=== PATIENT | male | born 1955 | race Caucasian/White ===

== ENCOUNTER 2017-04-10 16:00 | Emergency (ER) | payer MEDICARE, SELFPAY ==
[2017-04-10] VITALS (7 sets, daily range): BP systolic 127–137; BP diastolic 65–66; PULSE 81–96; RESP 16–25; TEMP 37.3; O2SAT 92–97; BMI 42.9
--- NOTE | 2017-04-10 16:39 | EKG12_ITS ---
Test Reason : SOB Blood Pressure : / mmHG Vent. Rate : 087 BPM Atrial Rate : 087 BPM P-R Int : 170 ms QRS Dur : 078 ms QT Int : 360 ms P-R-T Axes : 043 030 118 degrees QTc Int : 433 ms Normal sinus rhythm T wave abnormality, consider lateral ischemia Abnormal ECG Confirmed by BALTAZAR CHENG, ALEXANDER ([id number]), manager editorial LAM HARDY ([id number]) on 04/13/2017 2:53:11 PM Referred By: MEME Confirmed By:ALEXANDER LEDESMA MD
[2017-04-10] MEDS: Albuterol 2.5 MG/3 ML VIAL.NEB. INHALATION ×2 (16:57)
[2017-04-10] MEDS: Ipratropium/Albuterol Sulfate 3 ML AMPUL.NEB INHALATION (16:57)
[2017-04-10] MEDS: MethylPREDNISolone 125 MG/2 ML Vial IV (17:11)
--- NOTE | 2017-04-10 17:15 | RAD_ITS ---
XR Chest 2 Views INDICATION: sob with cough COMPARISON: May 29, 2016 TECHNIQUE: 2 views of the chest FINDINGS: Tracheostomy tube is seen in place. Heart size remains mildly enlarged. Interstitial markings at the lung bases are increased, lungs appear otherwise clear. RAD/Chest PA and Lateral IMPRESSION: Stable examination with mildly increased interstitial markings at the lung bases. No new infiltrate. at 1743 Reported and signed by: Susan Madison MD Electronically Signed: Susan Madison MD at 16:42 EST Tel , Service support ,
[2017-04-10 17:35] LABS: Absolute Lymphocyte Count 1.04 X10^3/ul (0.83-4.51); Absolute Neutrophil Count 14.5 X10^3/uL (2.0-7.7); Basophil# 0.03 X10^3/uL; Basophil% 0.2 % (0-1); Eosinophil# 0.03 X10^3/uL; Eosinophils% 0.2 % (0-5); Hematocrit 35.4 % (40-54); Hemoglobin 11.7 g/dl (13.0-16.5); Lymphocyte # 1.04 X10^3/ul (4.0); Lymphocyte % 6.2 % (19-41); Mean Corp Hgb Conc 33.1 g/gl (32-36); Mean Corpuscular Hgb 28.4 pg (27.0-32.0); Mean Corpuscular Volume 85.9 fL (80-94); Mean Platelet Vol. 10.4 fl (6.2-12.0); Monocyte% 6.6 % (0-10); Neutrophil # 14.54 X10^3/uL (2.7-7.7); Neutrophil % 86.6 % (47-70); Platelet Count 293 K/mm3 (150-450); RBC Distribution Width CV 12.7 % (11.6-14.6); RBC Distribution Width SD 40.3 fl (35.1-43.9); Red Blood Count 4.12 M/mm3 (4.6-6.2); White Blood Count 16.8 K/mm3 (4.4-11.0)
[2017-04-10 17:39] LABS: POSITIVE COUNT NO; POSITIVE DIFFERENTIAL NO; POSITIVE MORPHOLOGY NO
[2017-04-10 17:45] LABS: Anion Gap 7 (5-15); BUN 25 mg/dL (7-18); BUN/Creat Ratio 17.4 RATIO (10-20); Calcium,Total 8.2 mg/dL (8.5-10.1); Chloride 100 mmol/L (98-107); Creatinine, Serum 1.44 mg/dL (0.70-1.30); EST Glomerular Filtration Rate 53 mL/min (>60); Est Glom Filt Rate - Afr Amer 64 mL/min (>60); Estimated Creatinine Clearance 56.65 ml/min; Glucose 261 mg/dL (74-106); Potassium 4.6 mmol/L (3.5-5.1); Sodium Level 133 mmol/L (136-145)
--- NOTE | 2017-04-10 18:41 | ED.DCSUM_ITS ---
- ER Visit Summary Date of Service: 04/10/17 Chief Complaint: Dyspnea History of Present Illness: The patient is a 62 M who notes 3 days of shortness of breath. He was seen in urgent care and sent to the emergency department. 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 He sees Dr. Yeager for pulmonology at [facility]. Patient notes 3 days of progressive shortness of breath as well as cough and sputum production. No reported fevers. He has oxygen at home and wears it at night and as needed. The patient trach is completely occluded with sputum. It is the original trach from 2007 that he alternates with another one. Physical Examination: Afebrile vital signs are stable Gen: Well-nourished well-developed Head: Normocephalic atraumatic Eyes: Perrl EOMI ENT: TMs clear no rhinorrhea moist mucous membranes Neck: Supple no lymphadenopathy no JVD nontender CVS: Regular rate rhythm no murmurs normal S1-S2 Respiratory: No distress expiratory wheezing and rhonchi chest nontender trach site appears without infection or complication Abdomen: Soft nontender nondistended normal bowel sounds no masses Back: Nontender Extremity: Nontender no edema Skin: Normal color no rash Neuro: alert orientated ?3 CN II-XII intact normal strength sensation reflexes gait cerebellar Psych: Normal affect normal mood Test Results: White count 16.8. Troponin negative EKG sinus at a rate of 87. Chest x-ray showed no new infiltrate but chronic changes. Emergency Department Course and Treatment: Patient's trach is occluded with dried phlegm. This was cleaned by respiratory and inserted. Patient's trach is special order. He has another one at home. He was advised to follow-up with mine motor engineer have a new one ordered. He received breathing treatments and Solu-Medrol. Repeat lung exam shows his lungs to be clear. He ambulated asymptomatically though his oxygen level was around 89%. Patient states he feels well enough to go home. he will be placed on prednisone and azithromycin. Return if worsening. Impression: 1. COPD exacerbation 2. Tracheostomy complication This note was generated with [employer] dictation software. It may contain incorrect words, spelling, and punctuation that were not noted in review of the chart prior to signing ED Disposition - Plan for ED Patient: Disposition: Home or Assisted Living Chief Complaint: Shortness of Breath Instructions: ED COPD Flare Prescriptions: Azithromycin [Zithromax] 250 mg PO DAILY #6 tab Prednisone [Deltasone] 60 mg PO DAILY #15 tab Referrals: Chinmay Sin MD [Primary Care Provider] - Additional Instructions: You need to have your mine motor engineer order and you a new trach. Please follow-up with your mine motor engineer in 3-5 days or return here if worsening.
[2017-04-10 19:21] LABS: BNP,B-Type NATRIURETIC PEPTIDE 42.7 pg/mL (0-100)
== END 2017-04-10 18:53 | disposition home or self-care (01) ==
PROVIDERS: Emergency Provider Emergency Medicine; Family Provider Family Medicine; PCP Family Medicine
DX: J44.1 Chronic obstructive pulmonary disease with (acute) exacerbation (principal); J95.03 Malfunction of tracheostomy stoma; Y84.9 Medical procedure, unspecified as the cause of abnormal reaction of the patient, or of later complication, without mention of misadventure at the time of the procedure; E11.9 Type 2 diabetes mellitus without complications; I10 Essential (primary) hypertension; E78.00 Pure hypercholesterolemia, unspecified; I25.10 Atherosclerotic heart disease of native coronary artery without angina pectoris; I50.9 Heart failure, unspecified; C80.1 Malignant (primary) neoplasm, unspecified
CPT/HCPCS: 71046; 80048; 83880; 84484; 85025; 93005; 94640; 96374; 99284; A4216

== ENCOUNTER 2017-04-12 14:09 | Inpatient (IN) | payer MEDICARE, SELFPAY ==
[2017-04-12] VITALS (13 sets, daily range): BP systolic 122–157; BP diastolic 60–88; PULSE 67–93; RESP 18–31; TEMP 36.9–37.1; O2SAT 96–100; BMI 43.4; BMI 42.8
--- NOTE | 2017-04-12 14:43 | EKG12_ITS ---
Test Reason : SOB Blood Pressure : / mmHG Vent. Rate : 067 BPM Atrial Rate : 067 BPM P-R Int : 152 ms QRS Dur : 084 ms QT Int : 366 ms P-R-T Axes : 035 061 147 degrees QTc Int : 386 ms Normal sinus rhythm Nonspecific T wave abnormality Abnormal ECG Confirmed by FILIPE MARTÍNEZ ([id number]), editorial clerk LAM HARDY ([id number]) on 04/16/2017 1:45:59 PM Referred By: LAURA Confirmed By:FILIPE MARTÍNEZ
--- NOTE | 2017-04-12 14:46 | ED.VISSUMM ---
- ER Visit Summary Date of Service: 04/12/17 Chief Complaint: Shortness of breath History of Present Illness: The patient is a 62 M with tracheostomy. And COPD he is on 6 L of oxygen at home as needed. He also has a history of insulin-dependent diabetes and CHF. Patient was seen ER several days ago. He was discharged home on prednisone and Zithromax. He followed up with his fence post cutter today at the [facility] and had a low pulse ox there and was sent to the ER. He denies any chest pain. He denies any hemoptysis. He denies any fever. Physical Examination: Vital signs are stable except his pulse ox on a Venturi mask is 98% on room air he was 85%. But is normally on oxygen. HEENT exam unremarkable neck nontender is a nasal trumpet type of tracheostomy device that does have a lot of phlegm in it. This will be suctioned by the respiratory therapist. Neck nontender no lymphadenopathy. Lungs coarse breath sounds bilaterally. Few scattered wheezes. Heart regular rate and rhythm. Abdomen soft nontender nondistended no giving or masses normal bowel sounds no peritoneal signs. Moving all 4 extremities. Calves nontender. No cords. Neurologically is awake and alert without focal deficits. Test Results: Chest x-ray shows chronic changes consistent with COPD but no acute process. Read both by myself the radiologist. BC white count is elevated 22,000 it was 16,000 on last visit and he is currently on steroids. BMP unremarkable except a BUN of 43 a creatinine 1.2 consistent with dehydration. Anion gap is 5. There is a arterial blood gas pending requested by the hospitalist to evaluate. Emergency Department Course and Treatment: COPD flare with mucous plugging of the tracheostomy. Trach will be suctioned. Aerosol treatments. Treatment Plan: Exam on the patient is normal 6 L his sat is only 90-91%. He has labored breathing while just sitting in bed. He is going need further treatment and aerosols. He may need even bronchoscopy. He and I had a long discussion along with his significant other and he is willing to be admitted. Disposition: Vision Impression: Acute exacerbation of COPD Hypoxia Tracheostomy with mucous plugging This note was generated with [employer] dictation software. It may contain incorrect words, spelling, and punctuation that were not noted in review of the chart prior to signing ED Disposition - Plan for ED Patient: Chief Complaint: Shortness of Breath Referrals: Chinmay Sin MD [Primary Care Provider] -
--- NOTE | 2017-04-12 14:50 | ED.DCSUM_ITS ---
- ER Visit Summary Date of Service: 04/12/17 Chief Complaint: Shortness of breath History of Present Illness: The patient is a 62 M with tracheostomy. And COPD he is on 6 L of oxygen at home as needed. He also has a history of insulin- dependent diabetes and CHF. Patient was seen ER several days ago. He was discharged home on prednisone and Zithromax. He followed up with his stone derrickman and rigger today at the [facility] and had a low pulse ox there and was sent to the ER. He denies any chest pain. He denies any hemoptysis. He denies any fever. Physical Examination: Vital signs are stable except his pulse ox on a Venturi mask is 98% on room air he was 85%. But is normally on oxygen. HEENT exam unremarkable neck nontender is a nasal trumpet type of tracheostomy device that does have a lot of phlegm in it. This will be suctioned by the respiratory therapist. Neck nontender no lymphadenopathy. Lungs coarse breath sounds bilaterally. Few scattered wheezes. Heart regular rate and rhythm. Abdomen soft nontender nondistended no giving or masses normal bowel sounds no peritoneal signs. Moving all 4 extremities. Calves nontender. No cords. Neurologically is awake and alert without focal deficits. Test Results: Chest x-ray shows chronic changes consistent with COPD but no acute process. Read both by myself the radiologist. BC white count is elevated 22,000 it was 16,000 on last visit and he is currently on steroids. BMP unremarkable except a BUN of 43 a creatinine 1.2 consistent with dehydration. Anion gap is 5. There is a arterial blood gas pending requested by the hospitalist to evaluate. Emergency Department Course and Treatment: COPD flare with mucous plugging of the tracheostomy. Trach will be suctioned. Aerosol treatments. Treatment Plan: Exam on the patient is normal 6 L his sat is only 90-91%. He has labored breathing while just sitting in bed. He is going need further treatment and aerosols. He may need even bronchoscopy. He and I had a long discussion along with his significant other and he is willing to be admitted. Disposition: Vision Impression: Acute exacerbation of COPD Hypoxia Tracheostomy with mucous plugging This note was generated with [employer] dictation software. It may contain incorrect words, spelling, and punctuation that were not noted in review of the chart prior to signing ED Disposition - Plan for ED Patient: Chief Complaint: Shortness of Breath Referrals: Chinmay Sin MD [Primary Care Provider] -
[2017-04-12 14:51] LABS: Absolute Lymphocyte Count 1.11 X10^3/ul (0.83-4.51); Absolute Neutrophil Count 19.8 X10^3/uL (2.0-7.7); Basophil# 0.01 X10^3/uL; Eosinophil# 0.01 X10^3/uL; Hematocrit 36.7 % (40-54); Lymphocyte # 1.11 X10^3/ul (4.0); Lymphocyte % 5.1 % (19-41); Mean Corp Hgb Conc 32.7 g/gl (32-36); Mean Corpuscular Hgb 28.4 pg (27.0-32.0); Mean Platelet Vol. 10.4 fl (6.2-12.0); Monocyte# 0.94 X10^3/uL; Monocyte% 4.3 % (0-10); Neutrophil # 19.83 X10^3/uL (2.7-7.7); Neutrophil % 90.3 % (47-70); Platelet Count 319 K/mm3 (150-450); RBC Distribution Width CV 12.8 % (11.6-14.6); RBC Distribution Width SD 40.9 fl (35.1-43.9); Red Blood Count 4.22 M/mm3 (4.6-6.2)
[2017-04-12 14:56] LABS: POSITIVE COUNT NO; POSITIVE DIFFERENTIAL NO; POSITIVE MORPHOLOGY NO
[2017-04-12 14:57] LABS: Anion Gap 5 (5-15); BUN 43 mg/dL (7-18); BUN/Creat Ratio 35.8 RATIO (10-20); Calcium,Total 8.9 mg/dL (8.5-10.1); Chloride 101 mmol/L (98-107); EST Glomerular Filtration Rate 65 mL/min (>60); Est Glom Filt Rate - Afr Amer 79 mL/min (>60); Estimated Creatinine Clearance 67.98 ml/min; Glucose 201 mg/dL (74-106); Potassium 4.3 mmol/L (3.5-5.1); Sodium Level 136 mmol/L (136-145)
[2017-04-12] MEDS: Albuterol 2.5 MG/3 ML VIAL.NEB. INHALATION ×2 (15:07)
[2017-04-12] MEDS: Ipratropium/Albuterol Sulfate 3 ML AMPUL.NEB INHALATION ×2 (15:07→20:00)
--- NOTE | 2017-04-12 15:20 | RAD_ITS ---
STUDY: X-RAY CHEST REASON FOR EXAM: Male, 62 years old. Chest pain TECHNIQUE: Frontal and lateral views of the chest COMPARISON: 04/10/2017 FINDINGS: Again noted is linear atelectasis at the lung bases. The lungs are otherwise clear. There are no pleural effusions. There is no pneumothorax. The heart is mildly enlarged, but stable in size. The visualized osseous structures are within normal limits. RAD/Chest PA and Lateral IMPRESSION: No acute thoracic pathology. Electronically Signed: Nicolás Levine, at 16:16 EST Tel , Service support ,
[2017-04-12 17:16] LABS: Allen Test POS; Base Excess 4 mmol/L (-2 to +2); Bicarbonate 29.2 mmol/L (22-26); Blood Gas Specimen Type ART; O2 Delivery Device Nasal Can; PO2 77 mmHG (75-100); SITE L Radial; SO2 94 % (95-99); Time Given 1700; Total Carbon Dioxide 31 mmol/L; pCO2 50.6 mmHg (35-45); pH 7.37 (7.35-7.45)
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
[2017-04-12] MEDS: Furosemide 40 MG Tablet PO (19:16)
[2017-04-12] MEDS: levoFLOXacin 500 MG Tablet PO (19:16)
[2017-04-12] MEDS: Lisinopril 40 MG Tablet PO (21:42)
[2017-04-12] MEDS: 0.9% NaCl Peripheral Flush Adult/Peds IV (21:43)
[2017-04-12] MEDS: Atorvastatin Calcium 40 MG Tablet PO (21:43)
[2017-04-12] MEDS: Heparin Injection 5,000 UNITS/ML Syringe 5000 UNITS SC (21:43)
[2017-04-12] MEDS: Spironolactone 25 MG Tablet PO (21:43)
[2017-04-12 21:56] LABS: Bedside Glucose 367 mg/dL (70-110)
[2017-04-13] VITALS (16 sets, daily range): BP systolic 115–135; BP diastolic 56–72; PULSE 53–81; RESP 18–24; TEMP 36.7–37.2; O2SAT 96–100
[2017-04-13] MEDS: Ipratropium/Albuterol Sulfate 3 ML AMPUL.NEB INHALATION ×4 (01:20→22:42)
[2017-04-13] MEDS: 0.9% NaCl Peripheral Flush Adult/Peds IV (06:02)
[2017-04-13] MEDS: Heparin Injection 5,000 UNITS/ML Syringe 5000 UNITS SC ×3 (06:02→21:05)
[2017-04-13] MEDS: Levothyroxine 150 MCG Tablet PO (06:02)
[2017-04-13] MEDS: levoFLOXacin 500 MG Tablet PO (06:02)
[2017-04-13 06:17] LABS: Bedside Glucose 351 mg/dL (70-110)
[2017-04-13] MEDS: Aspirin 81 MG TAB.CHEW PO (08:58)
[2017-04-13] MEDS: LINAGLIPTIN 5 MG TABLET PO (08:59)
[2017-04-13] MEDS: Spironolactone 25 MG Tablet PO ×2 (08:59→21:06)
[2017-04-13] MEDS: Metolazone 2.5 MG Tablet PO (08:59)
[2017-04-13] MEDS: Lisinopril 40 MG Tablet PO ×2 (08:59→21:05)
[2017-04-13] MEDS: metFORMIN HCl 1,000 MG Tablet 1000 MG PO ×2 (08:59→16:57)
[2017-04-13] MEDS: Furosemide 40 MG Tablet PO ×2 (08:59→16:58)
--- NOTE | 2017-04-13 09:06 | PCM.PN.HOSP ---
Patient Problems: Active and Suspected Problems Shortness of breath (Acute) Subjective: Breathing better at this time. No current complaints. Vitals/I&O's: Vital Signs Temp Pulse Resp BP Pulse Ox 36.7 C 57 L 20 H 115/63 96 04/13/17 07:00 04/13/17 07:08 04/13/17 07:08 04/13/17 07:00 04/13/17 07:08 Oxygen Flow Rate (L/min) 11 Oxygen Delivery Method Trach Collar Weight: 139.3 kg Body Mass Index (BMI) 42.8 General: Alert, Cooperative, No apparent distress, - - Up in the chair eating breakfast. No respiratory distress. No conversational dyspnea. HEENT: Atraumatic, Normocephalic Neck: No Nodes, Thyroid Normal Size and Texture, - - Trach in place Lungs: Normal air movement, Wheezes Cardiovascular: Regular rate, Regular Rhythm, Normal S1, Normal S2, No murmurs Abdomen: Bowel Sounds Present, Soft, Non Tender, Non-Distended, Obese Psych/Mental Status: Normal Affect, Appropriate Laboratory Results 04/12/17 21:27: POC Glucose 367 H 04/13/17 06:04: POC Glucose 351 H Current Medications Acetaminophen (Tylenol) 650 mg PO Q6H PRN PRN PRN Reason: Mild Pain (1-3)/Temp > 100.7 F Albuterol Sulfate (Ventolin Aerosols) 2.5 mg INHALATION Q2H PRN PRN PRN Reason: DYSPNEA Albuterol/Ipratropium (Duoneb) 3 ml INHALATION Q6H PRN PRN Reason: SOB &/OR WHEEZING Last Admin: 04/13/17 07:07 Dose: 3 ml Aspirin (Aspirin, Baby) 81 mg PO DAILY@0800 [facility] Last Admin: 04/13/17 08:58 Dose: 81 mg Atorvastatin Calcium (Lipitor) 40 mg PO QHS [facility] Last Admin: 04/12/17 21:43 Dose: 40 mg Dextrose (D50w Syringe) 0 gm IV X1 PRN; Protocol PRN Reason: Hypoglycemia Furosemide (Lasix) 40 mg PO BIDLX [facility] Last Admin: 04/13/17 08:59 Dose: 40 mg Glipizide (Glucotrol) 10 mg PO BIDAC [facility] Last Admin: 04/13/17 08:58 Dose: 10 mg Glucagon () 1 mg IM .X1 PRN PRN Reason: Hypoglycemia Heparin Sodium (Porcine) () 5,000 units SC Q8 [facility] Last Admin: 04/13/17 06:02 Dose: 5,000 units Influenza Virus Vaccine Quadrival (Fluarix/Fluzone) 0.5 ml IM .ONCE ONE Stop: 04/13/17 10:01 Last Admin: 04/13/17 08:59 Dose: 0.5 ml Insulin Aspart (Novolog Flexpen ([facility])) 0 units SC ACHS [facility] PRN Reason: Protocol Last Admin: 04/13/17 06:05 Dose: 12 u Insulin Detemir (Levemir (Bk)) 35 units SC BID [facility] Last Admin: 04/13/17 09:00 Dose: 35 u Levofloxacin (Levaquin) 500 mg PO DAILY@0600 [facility] Last Admin: 04/13/17 06:02 Dose: 500 mg Levothyroxine Sodium (Synthroid) 150 mcg PO DAILY@0600 [facility] Last Admin: 04/13/17 06:02 Dose: 150 mcg Linagliptin (Tradjenta) 5 mg PO DAILY [facility] Last Admin: 04/13/17 08:59 Dose: 5 mg Lisinopril (Zestril) 40 mg PO BID [facility] Last Admin: 04/13/17 08:59 Dose: 40 mg [facility] Last Admin: 04/13/17 08:59 Dose: 1,000 mg Methylprednisolone (Solu-Medrol) 40 mg IV Q8 [facility] Last Admin: 04/13/17 06:02 Dose: 40 mg Metolazone (Zaroxolyn) 2.5 mg PO DAILY [facility] Last Admin: 04/13/17 08:59 Dose: 2.5 mg Sodium Chloride () 5 - 30 ml IV UD PRN PRN Reason: SALINE FLUSH Last Admin: 04/13/17 06:02 Dose: 10 ml Spironolactone (Aldactone) 25 mg PO BID [facility] Last Admin: 04/13/17 08:59 Dose: 25 mg Assessment/Plan Active and Suspected Problems Shortness of breath (Acute) 1. Acute exacerbation of COPD Improved. Continue with bronchodilators Wean Solu-Medrol to 20 every 8 and if doing better on the 10th, then I would anticipate patient be able to be discharged with prednisone. That will certainly depend on what his oxygen requirements are. Patient is on 6 L via his tracheostomy at home. Patient will need to follow-up with Dr. Manzanares as outpatient. 2. Diabetes mellitus type 2 Uncontrolled at this time Certainly the steroids are a contributing factor With a decrease in the steroids I dissipate his blood sugars improving but I suspect that his blood sugars are probably on the high side at baseline. I will add scheduled NovoLog to his regiment for now. 3. Acute on chronic hypercapnic respiratory failure Urinary to COPD exacerbation plus pulmonary hypertension and cor pulmonale Wean oxygen as tolerated Mention of hypoxic respiratory failure on history and physical but I do not see any evidence of hypoxia vital signs but the patient was hypercapnic on her ABG. 4. Leukocytosis No evidence of any infection on chest x-ray On empiric Levaquin. With just continue for 5 days, with stop date on April 16. May be reactive with the patient's respiratory failure 5. DT prophylaxis with heparin. Code Visit Inpatient E&M: 92248 Subs Hosp L2
--- NOTE | 2017-04-13 09:15 | PN_ITS ---
Patient Problems: Active and Suspected Problems Shortness of breath (Acute) Subjective: Breathing better at this time. No current complaints. Vitals/I&O's: Vital Signs Temp Pulse Resp BP Pulse Ox 36.7 C 57 L 20 H 115/63 96 04/13/17 07:00 04/13/17 07:08 04/13/17 07:08 04/13/17 07:00 04/13/17 07:08 Oxygen Flow Rate (L/min) 11 Oxygen Delivery Method Trach Collar Weight: 139.3 kg Body Mass Index (BMI) 42.8 General: Alert, Cooperative, No apparent distress, - - Up in the chair eating breakfast. No respiratory distress. No conversational dyspnea. HEENT: Atraumatic, Normocephalic Neck: No Nodes, Thyroid Normal Size and Texture, - - Trach in place Lungs: Normal air movement, Wheezes Cardiovascular: Regular rate, Regular Rhythm, Normal S1, Normal S2, No murmurs Abdomen: Bowel Sounds Present, Soft, Non Tender, Non-Distended, Obese Psych/Mental Status: Normal Affect, Appropriate Laboratory Results 04/12/17 21:27: POC Glucose 367 H 04/13/17 06:04: POC Glucose 351 H Current Medications Acetaminophen (Tylenol) 650 mg PO Q6H PRN PRN PRN Reason: Mild Pain (1-3)/Temp > 100.7 F Albuterol Sulfate (Ventolin Aerosols) 2.5 mg INHALATION Q2H PRN PRN PRN Reason: DYSPNEA Albuterol/Ipratropium (Duoneb) 3 ml INHALATION Q6H PRN PRN Reason: SOB &/OR WHEEZING Last Admin: 04/13/17 07:07 Dose: 3 ml Aspirin (Aspirin, Baby) 81 mg PO DAILY@0800 [facility] Last Admin: 04/13/17 08:58 Dose: 81 mg Atorvastatin Calcium (Lipitor) 40 mg PO QHS [facility] Last Admin: 04/12/17 21:43 Dose: 40 mg Dextrose (D50w Syringe) 0 gm IV X1 PRN; Protocol PRN Reason: Hypoglycemia Furosemide (Lasix) 40 mg PO BIDLX [facility] Last Admin: 04/13/17 08:59 Dose: 40 mg Glipizide (Glucotrol) 10 mg PO BIDAC [facility] Last Admin: 04/13/17 08:58 Dose: 10 mg Glucagon () 1 mg IM .X1 PRN PRN Reason: Hypoglycemia Heparin Sodium (Porcine) () 5,000 units SC Q8 [facility] Last Admin: 04/13/17 06:02 Dose: 5,000 units Influenza Virus Vaccine Quadrival (Fluarix/Fluzone) 0.5 ml IM .ONCE ONE Stop: 04/13/17 10:01 Last Admin: 04/13/17 08:59 Dose: 0.5 ml Insulin Aspart (Novolog Flexpen ([facility])) 0 units SC ACHS [facility] PRN Reason: Protocol Last Admin: 04/13/17 06:05 Dose: 12 u Insulin Detemir (Levemir (Bk)) 35 units SC BID [facility] Last Admin: 04/13/17 09:00 Dose: 35 u Levofloxacin (Levaquin) 500 mg PO DAILY@0600 [facility] Last Admin: 04/13/17 06:02 Dose: 500 mg Levothyroxine Sodium (Synthroid) 150 mcg PO DAILY@0600 [facility] Last Admin: 04/13/17 06:02 Dose: 150 mcg Linagliptin (Tradjenta) 5 mg PO DAILY [facility] Last Admin: 04/13/17 08:59 Dose: 5 mg Lisinopril (Zestril) 40 mg PO BID [facility] Last Admin: 04/13/17 08:59 Dose: 40 mg [facility] Last Admin: 04/13/17 08:59 Dose: 1,000 mg Methylprednisolone (Solu-Medrol) 40 mg IV Q8 [facility] Last Admin: 04/13/17 06:02 Dose: 40 mg Metolazone (Zaroxolyn) 2.5 mg PO DAILY [facility] Last Admin: 04/13/17 08:59 Dose: 2.5 mg Sodium Chloride () 5 - 30 ml IV UD PRN PRN Reason: SALINE FLUSH Last Admin: 04/13/17 06:02 Dose: 10 ml Spironolactone (Aldactone) 25 mg PO BID [facility] Last Admin: 04/13/17 08:59 Dose: 25 mg Assessment/Plan Active and Suspected Problems Shortness of breath (Acute) 1. Acute exacerbation of COPD * Improved. * Continue with bronchodilators * Wean Solu-Medrol to 20 every 8 and if doing better on the 10th, then I would anticipate patient be able to be discharged with prednisone. * That will certainly depend on what his oxygen requirements are. Patient is on 6 L via his tracheostomy at home. * Patient will need to follow-up with Dr. Manzanares as outpatient. 2. Diabetes mellitus type 2 * Uncontrolled at this time * Certainly the steroids are a contributing factor * With a decrease in the steroids I dissipate his blood sugars improving but I suspect that his blood sugars are probably on the high side at baseline. * I will add scheduled NovoLog to his regiment for now. 3. Acute on chronic hypercapnic respiratory failure * Urinary to COPD exacerbation plus pulmonary hypertension and cor pulmonale * Wean oxygen as tolerated * Mention of hypoxic respiratory failure on history and physical but I do not see any evidence of hypoxia vital signs but the patient was hypercapnic on her ABG. 4. Leukocytosis * No evidence of any infection on chest x-ray * On empiric Levaquin. With just continue for 5 days, with stop date on April 16. * May be reactive with the patient's respiratory failure 5. DT prophylaxis with heparin. Code Visit Inpatient E&M: 02492 Subs Hosp L2
--- NOTE | 2017-04-13 10:26 | CASEMGMT ---
See RN CM assessment. Intro role of CM to patient in room. He is alert, oriented, able to participate. Pt can verbalize around trach. -Has equipment @ home. Asked about humidification for home. -No transportation concerns, able to f/u with physician, has prescription coverage. -No dc needs at this time. Rebecca BUTTSN RN ACM
[2017-04-13 11:31] LABS: Bedside Glucose 374 mg/dL (70-110)
[2017-04-13 16:36] LABS: Bedside Glucose 218 mg/dL (70-110)
[2017-04-13] MEDS: Atorvastatin Calcium 40 MG Tablet PO (21:05)
[2017-04-13 21:21] LABS: Bedside Glucose 249 mg/dL (70-110)
[2017-04-14] VITALS (13 sets, daily range): BP systolic 118–157; BP diastolic 50–80; PULSE 65–86; RESP 16–20; TEMP 36.5–36.9; O2SAT 96–100
[2017-04-14] MEDS: Heparin Injection 5,000 UNITS/ML Syringe 5000 UNITS SC ×3 (06:11→21:35)
[2017-04-14] MEDS: levoFLOXacin 500 MG Tablet PO (06:11)
[2017-04-14] MEDS: Levothyroxine 150 MCG Tablet PO (06:11)
[2017-04-14 06:31] LABS: Bedside Glucose 151 mg/dL (70-110)
[2017-04-14] MEDS: Ipratropium/Albuterol Sulfate 3 ML AMPUL.NEB INHALATION ×3 (07:02→18:47)
[2017-04-14 07:10] LABS: Absolute Lymphocyte Count 1.36 X10^3/ul (0.83-4.51); Absolute Neutrophil Count 10.5 X10^3/uL (2.0-7.7); Hematocrit 35.9 % (40-54); Hemoglobin 11.6 g/dl (13.0-16.5); Lymphocyte # 1.36 X10^3/ul (4.0); Lymphocyte % 10.4 % (19-41); Mean Corp Hgb Conc 32.3 g/gl (32-36); Mean Corpuscular Hgb 27.9 pg (27.0-32.0); Mean Corpuscular Volume 86.3 fL (80-94); Mean Platelet Vol. 10.3 fl (6.2-12.0); Monocyte# 1.08 X10^3/uL; Monocyte% 8.3 % (0-10); Neutrophil # 10.53 X10^3/uL (2.7-7.7); Neutrophil % 80.9 % (47-70); Platelet Count 339 K/mm3 (150-450); RBC Distribution Width CV 12.6 % (11.6-14.6); RBC Distribution Width SD 39.8 fl (35.1-43.9); Red Blood Count 4.16 M/mm3 (4.6-6.2)
[2017-04-14 07:11] LABS: POSITIVE COUNT NO; POSITIVE DIFFERENTIAL NO; POSITIVE MORPHOLOGY NO
[2017-04-14 08:16] LABS: Hemoglobin A1c 8.9 % (4.2-6.3)
[2017-04-14] MEDS: Aspirin 81 MG TAB.CHEW PO (08:21)
[2017-04-14] MEDS: metFORMIN HCl 1,000 MG Tablet 1000 MG PO ×2 (08:22→17:08)
[2017-04-14] MEDS: Spironolactone 25 MG Tablet PO ×2 (09:54→21:36)
[2017-04-14] MEDS: Furosemide 40 MG Tablet PO ×2 (09:54→17:07)
[2017-04-14] MEDS: LINAGLIPTIN 5 MG TABLET PO (09:55)
[2017-04-14] MEDS: Metolazone 2.5 MG Tablet PO (09:56)
[2017-04-14] MEDS: Lisinopril 40 MG Tablet PO ×2 (09:56→21:39)
--- NOTE | 2017-04-14 10:38 | PCM.PN.HOSP ---
Patient Problems: Active and Suspected Problems Shortness of breath (Acute) Subjective: Breathing better. States that at home he is only on oxygen at night. Vitals/I&O's: Vital Signs Temp Pulse Resp BP Pulse Ox 36.5 C L 65 18 118/66 97 04/14/17 08:05 04/14/17 08:05 04/14/17 08:15 04/14/17 08:05 04/14/17 08:05 Oxygen Flow Rate (L/min) 10 Oxygen Delivery Method Trach Collar Weight: 139.3 kg Body Mass Index (BMI) 42.8 Intake and Output for Last 24 Hours 04/12/17 04/13/17 04/14/17 23:59 23:59 23:59 Intake Total 1480 / 1480 900 / 900 Balance 1480 / 1480 900 / 900 General: Alert, No apparent distress HEENT: Atraumatic, Normocephalic Neck: No Nodes, Thyroid Normal Size and Texture Lungs: Clear to auscultation, Normal air movement, No rhonchi, No wheeze Cardiovascular: Regular rate, Regular Rhythm, Normal S1, Normal S2, No murmurs Abdomen: Bowel Sounds Present, Soft, Non Tender, Non-Distended, No Hepato-splenomegaly Extremities: No edema, No Calf Tenderness Psych/Mental Status: Normal Affect, Appropriate Microbiology Past 72 Hours 04/13/17 01:50 Sputum, Tracheal Aspirate Gram Stain - Final 04/13/17 01:50 Sputum, Tracheal Aspirate Respiratory Culture - Preliminary Gram negative ady Laboratory Results 04/13/17 11:18: POC Glucose 374 H 04/13/17 16:25: POC Glucose 218 H 04/13/17 21:01: POC Glucose 249 H 04/14/17 06:20: POC Glucose 151 H 04/14/17 06:40: WBC 13.0 H, RBC 4.16 L, Hgb 11.6 L, Hct 35.9 L, MCV 86.3, MCH 27.9, MCHC 32.3, RDW 12.6, RDW Differential 39.8, Plt Count 339, MPV 10.3, Immature Gran % (Auto) 0.400, Neut % (Auto) 80.9 H, Lymph % (Auto) 10.4 L, [place] % (Auto) 8.3, Eos % (Auto) 0.0, Baso % (Auto) 0.0, Absolute Neuts (auto) 10.5 H, Absolute Lymphs (auto) 1.36, Total Counted Not Reportable 04/14/17 06:40: Hemoglobin A1c 8.9 H Current Medications Acetaminophen (Tylenol) 650 mg PO Q6H PRN PRN PRN Reason: Mild Pain (1-3)/Temp > 100.7 F Albuterol Sulfate (Ventolin Aerosols) 2.5 mg INHALATION Q2H PRN PRN PRN Reason: DYSPNEA Albuterol/Ipratropium (Duoneb) 3 ml INHALATION Q6H PRN PRN Reason: SOB &/OR WHEEZING Last Admin: 04/14/17 07:02 Dose: 3 ml Aspirin (Aspirin, Baby) 81 mg PO DAILY@0800 [facility] Last Admin: 04/14/17 08:21 Dose: 81 mg Atorvastatin Calcium (Lipitor) 40 mg PO QHS [facility] Last Admin: 04/13/17 21:05 Dose: 40 mg Dextrose (D50w Syringe) 0 gm IV X1 PRN; Protocol PRN Reason: Hypoglycemia Furosemide (Lasix) 40 mg PO BIDLX [facility] Last Admin: 04/14/17 09:54 Dose: 40 mg Glipizide (Glucotrol) 10 mg PO BIDAC [facility] Last Admin: 04/14/17 08:21 Dose: 10 mg Glucagon () 1 mg IM .X1 PRN PRN Reason: Hypoglycemia Heparin Sodium (Porcine) () 5,000 units SC Q8 [facility] Last Admin: 04/14/17 06:11 Dose: 5,000 units Insulin Aspart (Novolog Flexpen (Bkc)) 0 units SC ACHS [facility] PRN Reason: Protocol Last Admin: 04/14/17 06:21 Dose: 3 u Insulin Aspart (Novolog Flexpen (Bkc)) 8 units SC TIDAC [facility] Last Admin: 04/14/17 08:20 Dose: 8 units Insulin Detemir (Levemir (Bkc)) 35 units SC BID [facility] Last Admin: 04/14/17 09:54 Dose: 35 u Levofloxacin (Levaquin) 500 mg PO DAILY@0600 [facility] Last Admin: 04/14/17 06:11 Dose: 500 mg Levothyroxine Sodium (Synthroid) 150 mcg PO DAILY@0600 [facility] Last Admin: 04/14/17 06:11 Dose: 150 mcg Linagliptin (Tradjenta) 5 mg PO DAILY [facility] Last Admin: 04/14/17 09:55 Dose: 5 mg Lisinopril (Zestril) 40 mg PO BID [facility] Last Admin: 04/14/17 09:56 Dose: 40 mg [facility] Last Admin: 04/14/17 08:22 Dose: 1,000 mg Metolazone (Zaroxolyn) 2.5 mg PO DAILY [facility] Last Admin: 04/14/17 09:56 Dose: 2.5 mg Sodium Chloride () 5 - 30 ml IV UD PRN PRN Reason: SALINE FLUSH Last Admin: 04/13/17 06:02 Dose: 10 ml Spironolactone (Aldactone) 25 mg PO BID [facility] Last Admin: 04/14/17 09:54 Dose: 25 mg Assessment/Plan Active and Suspected Problems Shortness of breath (Acute) 1. Acute exacerbation of COPD Improved. Continue with bronchodilators Change steroids to prednisone 40 mg daily. That will certainly depend on what his oxygen requirements are. Patient is on 6 L via his tracheostomy at home. Is still on the trach mask. Lungs do sound better today. Given the patient's increased oxygen requirements and no change in therapy he would like to watch patient for another 24 hours prior to discharge. Patient will need to follow-up with Dr. Manzanares as outpatient. 2. Diabetes mellitus type 2 Uncontrolled at this time Certainly the steroids are a contributing factor With a decrease in the steroids I dissipate his blood sugars improving but I suspect that his blood sugars are probably on the high side at baseline. I will add scheduled NovoLog to his regiment for now. Hemoglobin A1c is 8.9 I anticipate the blood sugars to improve with decreasing steroids. 3. Acute on chronic hypercapnic respiratory failure Urinary to COPD exacerbation plus pulmonary hypertension and cor pulmonale Wean oxygen as tolerated Mention of hypoxic respiratory failure on history and physical but I do not see any evidence of hypoxia vital signs but the patient was hypercapnic on her ABG. 4. Leukocytosis No evidence of any infection on chest x-ray On empiric Levaquin. With just continue for 5 days, with stop date on April 16. May be reactive with the patient's respiratory failure 5. DT prophylaxis with heparin. Code Visit Inpatient E&M: 76943 Subs Hosp L2
[2017-04-14 11:36] LABS: Bedside Glucose 273 mg/dL (70-110)
[2017-04-14 16:41] LABS: Bedside Glucose 328 mg/dL (70-110)
[2017-04-14] MEDS: Atorvastatin Calcium 40 MG Tablet PO (21:36)
[2017-04-14 21:51] LABS: Bedside Glucose 234 mg/dL (70-110)
[2017-04-15] VITALS (7 sets, daily range): BP systolic 107–137; BP diastolic 62–75; PULSE 60–71; RESP 16–20; TEMP 36.3–36.4; O2SAT 90–97
[2017-04-15] MEDS: Ipratropium/Albuterol Sulfate 3 ML AMPUL.NEB INHALATION ×2 (00:53→07:40)
[2017-04-15] MEDS: levoFLOXacin 500 MG Tablet PO (05:26)
[2017-04-15] MEDS: Heparin Injection 5,000 UNITS/ML Syringe 5000 UNITS SC (05:26)
[2017-04-15] MEDS: Levothyroxine 150 MCG Tablet PO (05:26)
[2017-04-15 07:56] LABS: Bedside Glucose 94 mg/dL (70-110)
--- NOTE | 2017-04-15 08:04 | PCM.PN.HOSP ---
Patient Problems: Active and Suspected Problems COPD with acute exacerbation (Acute) Acute hypercapnic respiratory failure (Acute) Subjective: Breathing better. No new events. Vitals/I&O's: Vital Signs Temp Pulse Resp BP Pulse Ox 36.4 C L 62 16 137/75 H 96 04/15/17 07:56 04/15/17 07:56 04/15/17 07:56 04/15/17 07:56 04/15/17 07:56 Oxygen Flow Rate (L/min) 7 Oxygen Delivery Method Trach Collar Weight: 139.3 kg Body Mass Index (BMI) 42.8 Intake and Output for Last 24 Hours 04/13/17 04/14/17 04/16/17 23:59 23:59 00:59 Intake Total 1480 / 1480 900 / 900 Balance 1480 / 1480 900 / 900 General: Alert, Cooperative, No apparent distress HEENT: Atraumatic, Normocephalic Neck: No Nodes, Thyroid Normal Size and Texture Lungs: Clear to auscultation, Normal air movement, No rhonchi, No wheeze Cardiovascular: Regular rate, Regular Rhythm, Normal S1, Normal S2, No murmurs Abdomen: Bowel Sounds Present, Soft, Non Tender, Non-Distended, No Hepato-splenomegaly Psych/Mental Status: Normal Affect, Appropriate Microbiology Past 72 Hours 04/13/17 01:50 Sputum, Tracheal Aspirate Gram Stain - Final 04/13/17 01:50 Sputum, Tracheal Aspirate Respiratory Culture - Preliminary Gram negative ady Laboratory Results 04/14/17 06:40: WBC 13.0 H, RBC 4.16 L, Hgb 11.6 L, Hct 35.9 L, MCV 86.3, MCH 27.9, MCHC 32.3, RDW 12.6, RDW Differential 39.8, Plt Count 339, MPV 10.3, Immature Gran % (Auto) 0.400, Neut % (Auto) 80.9 H, Lymph % (Auto) 10.4 L, [place] % (Auto) 8.3, Eos % (Auto) 0.0, Baso % (Auto) 0.0, Absolute Neuts (auto) 10.5 H, Absolute Lymphs (auto) 1.36, Total Counted Not Reportable 04/14/17 06:40: Hemoglobin A1c 8.9 H 04/14/17 11:29: POC Glucose 273 H 04/14/17 16:31: POC Glucose 328 H 04/14/17 21:34: POC Glucose 234 H 04/15/17 07:49: POC Glucose 94 Current Medications Acetaminophen (Tylenol) 650 mg PO Q6H PRN PRN PRN Reason: Mild Pain (1-3)/Temp > 100.7 F Albuterol Sulfate (Ventolin Aerosols) 2.5 mg INHALATION Q2H PRN PRN PRN Reason: DYSPNEA Albuterol/Ipratropium (Duoneb) 3 ml INHALATION Q6H PRN PRN Reason: SOB &/OR WHEEZING Last Admin: 04/15/17 07:40 Dose: 3 ml Aspirin (Aspirin, Baby) 81 mg PO DAILY@0800 [facility] Last Admin: 04/14/17 08:21 Dose: 81 mg Atorvastatin Calcium (Lipitor) 40 mg PO QHS [facility] Last Admin: 04/14/17 21:36 Dose: 40 mg Dextrose (D50w Syringe) 0 gm IV X1 PRN; Protocol PRN Reason: Hypoglycemia Furosemide (Lasix) 40 mg PO BIDLX [facility] Last Admin: 04/14/17 17:07 Dose: 40 mg Glipizide (Glucotrol) 10 mg PO BIDAC [facility] Last Admin: 04/14/17 17:08 Dose: 10 mg Glucagon () 1 mg IM .X1 PRN PRN Reason: Hypoglycemia Heparin Sodium (Porcine) () 5,000 units SC Q8 [facility] Last Admin: 04/15/17 05:26 Dose: 5,000 units Insulin Aspart (Novolog Flexpen (Bkc)) 0 units SC ACHS [facility] PRN Reason: Protocol Last Admin: 04/15/17 08:02 Dose: Not Given Insulin Aspart (Novolog Flexpen (Bkc)) 8 units SC TIDAC [facility] Last Admin: 04/14/17 17:08 Dose: 8 units Insulin Detemir (Levemir (Bkc)) 35 units SC BID [facility] Last Admin: 04/14/17 21:37 Dose: 35 u Levofloxacin (Levaquin) 500 mg PO DAILY@0600 [facility] Last Admin: 04/15/17 05:26 Dose: 500 mg Levothyroxine Sodium (Synthroid) 150 mcg PO DAILY@0600 [facility] Last Admin: 04/15/17 05:26 Dose: 150 mcg Linagliptin (Tradjenta) 5 mg PO DAILY [facility] Last Admin: 04/14/17 09:55 Dose: 5 mg Lisinopril (Zestril) 40 mg PO BID [facility] Last Admin: 04/14/17 21:39 Dose: 40 mg [facility] Last Admin: 04/14/17 17:08 Dose: 1,000 mg Metolazone (Zaroxolyn) 2.5 mg PO DAILY [facility] Last Admin: 04/14/17 09:56 Dose: 2.5 mg Prednisone (Prednisone) 40 mg PO DAILY@0800 [facility] Sodium Chloride () 5 - 30 ml IV UD PRN PRN Reason: SALINE FLUSH Last Admin: 04/13/17 06:02 Dose: 10 ml Spironolactone (Aldactone) 25 mg PO BID [facility] Last Admin: 04/14/17 21:36 Dose: 25 mg Assessment/Plan Active and Suspected Problems COPD with acute exacerbation (Acute) Acute hypercapnic respiratory failure (Acute) 1. Acute exacerbation of COPD Improved. Continue with bronchodilators Change steroids to prednisone 40 mg daily. That will certainly depend on what his oxygen requirements are. Patient is on 6 L via his tracheostomy at home. Is still on the trach mask. Lungs do sound better today. Given the patient's increased oxygen requirements and no change in therapy he would like to watch patient for another 24 hours prior to discharge. Patient will need to follow-up with Dr. Manzanares as outpatient. Appointment scheduled previously for 2 weeks Check an ambulatory pulse ox 2. Diabetes mellitus type 2 Uncontrolled at this time Certainly the steroids are a contributing factor With a decrease in the steroids I dissipate his blood sugars improving but I suspect that his blood sugars are probably on the high side at baseline. I will add scheduled NovoLog to his regiment for now. Hemoglobin A1c is 8.9 I anticipate the blood sugars to improve with decreasing steroids. Increase levemir dosing to 40 BID (up from 35). Continue Januvia and Metformin. Consider adding scheduled log depending on how blood sugars play out. 3. Acute on chronic hypercapnic respiratory failure Urinary to COPD exacerbation plus pulmonary hypertension and cor pulmonale Wean oxygen as tolerated Mention of hypoxic respiratory failure on history and physical but I do not see any evidence of hypoxia vital signs but the patient was hypercapnic on her ABG. 4. Leukocytosis No evidence of any infection on chest x-ray On empiric Levaquin. With just continue for 5 days, with stop date on April 16. May be reactive with the patient's respiratory failure Improved as of 04/14. DT prophylaxis with heparin.
--- NOTE | 2017-04-15 08:09 | PN_ITS ---
Patient Problems: Active and Suspected Problems COPD with acute exacerbation (Acute) Acute hypercapnic respiratory failure (Acute) Subjective: Breathing better. No new events. Vitals/I&O's: Vital Signs Temp Pulse Resp BP Pulse Ox 36.4 C L 62 16 137/75 H 96 04/15/17 07:56 04/15/17 07:56 04/15/17 07:56 04/15/17 07:56 04/15/17 07:56 Oxygen Flow Rate (L/min) 7 Oxygen Delivery Method Trach Collar Weight: 139.3 kg Body Mass Index (BMI) 42.8 Intake and Output for Last 24 Hours 04/13/17 04/14/17 04/16/17 23:59 23:59 00:59 Intake Total 1480 / 1480 900 / 900 Balance 1480 / 1480 900 / 900 General: Alert, Cooperative, No apparent distress HEENT: Atraumatic, Normocephalic Neck: No Nodes, Thyroid Normal Size and Texture Lungs: Clear to auscultation, Normal air movement, No rhonchi, No wheeze Cardiovascular: Regular rate, Regular Rhythm, Normal S1, Normal S2, No murmurs Abdomen: Bowel Sounds Present, Soft, Non Tender, Non-Distended, No Hepato- splenomegaly Psych/Mental Status: Normal Affect, Appropriate Microbiology Past 72 Hours 04/13/17 01:50 Sputum, Tracheal Aspirate Gram Stain - Final 04/13/17 01:50 Sputum, Tracheal Aspirate Respiratory Culture - Preliminary Gram negative ady Laboratory Results 04/14/17 06:40: WBC 13.0 H, RBC 4.16 L, Hgb 11.6 L, Hct 35.9 L, MCV 86.3, MCH 27.9, MCHC 32.3, RDW 12.6, RDW Differential 39.8, Plt Count 339, MPV 10.3, Immature Gran % (Auto) 0.400, Neut % (Auto) 80.9 H, Lymph % (Auto) 10.4 L, [place] % (Auto) 8.3, Eos % (Auto) 0.0, Baso % (Auto) 0.0, Absolute Neuts (auto) 10.5 H , Absolute Lymphs (auto) 1.36, Total Counted Not Reportable 04/14/17 06:40: Hemoglobin A1c 8.9 H 04/14/17 11:29: POC Glucose 273 H 04/14/17 16:31: POC Glucose 328 H 04/14/17 21:34: POC Glucose 234 H 04/15/17 07:49: POC Glucose 94 Current Medications Acetaminophen (Tylenol) 650 mg PO Q6H PRN PRN PRN Reason: Mild Pain (1-3)/Temp > 100.7 F Albuterol Sulfate (Ventolin Aerosols) 2.5 mg INHALATION Q2H PRN PRN PRN Reason: DYSPNEA Albuterol/Ipratropium (Duoneb) 3 ml INHALATION Q6H PRN PRN Reason: SOB &/OR WHEEZING Last Admin: 04/15/17 07:40 Dose: 3 ml Aspirin (Aspirin, Baby) 81 mg PO DAILY@0800 [facility] Last Admin: 04/14/17 08:21 Dose: 81 mg Atorvastatin Calcium (Lipitor) 40 mg PO QHS [facility] Last Admin: 04/14/17 21:36 Dose: 40 mg Dextrose (D50w Syringe) 0 gm IV X1 PRN; Protocol PRN Reason: Hypoglycemia Furosemide (Lasix) 40 mg PO BIDLX [facility] Last Admin: 04/14/17 17:07 Dose: 40 mg Glipizide (Glucotrol) 10 mg PO BIDAC [facility] Last Admin: 04/14/17 17:08 Dose: 10 mg Glucagon () 1 mg IM .X1 PRN PRN Reason: Hypoglycemia Heparin Sodium (Porcine) () 5,000 units SC Q8 [facility] Last Admin: 04/15/17 05:26 Dose: 5,000 units Insulin Aspart (Novolog Flexpen (Bkc)) 0 units SC ACHS [facility] PRN Reason: Protocol Last Admin: 04/15/17 08:02 Dose: Not Given Insulin Aspart (Novolog Flexpen (Bkc)) 8 units SC TIDAC [facility] Last Admin: 04/14/17 17:08 Dose: 8 units Insulin Detemir (Levemir (Bkc)) 35 units SC BID [facility] [place] Last Admin: 04/14/17 21:37 Dose: 35 u Levofloxacin (Levaquin) 500 mg PO DAILY@0600 [facility] Last Admin: 04/15/17 05:26 Dose: 500 mg Levothyroxine Sodium (Synthroid) 150 mcg PO DAILY@0600 [facility] [place] Last Admin: 04/15/17 05:26 Dose: 150 mcg Linagliptin (Tradjenta) 5 mg PO DAILY [facility] Last Admin: 04/14/17 09:55 Dose: 5 mg Lisinopril (Zestril) 40 mg PO BID [facility] [place] Last Admin: 04/14/17 21:39 Dose: 40 mg [facility] Last Admin: 04/14/17 17:08 Dose: 1,000 mg Metolazone (Zaroxolyn) 2.5 mg PO DAILY [facility] [place] Last Admin: 04/14/17 09:56 Dose: 2.5 mg Prednisone (Prednisone) 40 mg PO DAILY@0800 [facility] Sodium Chloride () 5 - 30 ml IV UD PRN PRN Reason: SALINE FLUSH Last Admin: 04/13/17 06:02 Dose: 10 ml Spironolactone (Aldactone) 25 mg PO BID [facility] [place] Last Admin: 04/14/17 21:36 Dose: 25 mg Assessment/Plan Active and Suspected Problems COPD with acute exacerbation (Acute) Acute hypercapnic respiratory failure (Acute) 1. Acute exacerbation of COPD * Improved. * Continue with bronchodilators * Change steroids to prednisone 40 mg daily. * That will certainly depend on what his oxygen requirements are. Patient is on 6 L via his tracheostomy at home. Is still on the trach mask. Lungs do sound better today. Given the patient's increased oxygen requirements and no change in therapy he would like to watch patient for another 24 hours prior to discharge. * Patient will need to follow-up with Dr. Manzanares as outpatient. Appointment scheduled previously for 2 weeks * Check an ambulatory pulse ox 2. Diabetes mellitus type 2 * Uncontrolled at this time * Certainly the steroids are a contributing factor * With a decrease in the steroids I dissipate his blood sugars improving but I suspect that his blood sugars are probably on the high side at baseline. * I will add scheduled NovoLog to his regiment for now. * Hemoglobin A1c is 8.9 * I anticipate the blood sugars to improve with decreasing steroids. * Increase levemir dosing to 40 BID (up from 35). Continue Januvia and Metformin. Consider adding scheduled log depending on how blood sugars play out. 3. Acute on chronic hypercapnic respiratory failure * Urinary to COPD exacerbation plus pulmonary hypertension and cor pulmonale * Wean oxygen as tolerated * Mention of hypoxic respiratory failure on history and physical but I do not see any evidence of hypoxia vital signs but the patient was hypercapnic on her ABG. 4. Leukocytosis * No evidence of any infection on chest x-ray * On empiric Levaquin. With just continue for 5 days, with stop date on April 16. * May be reactive with the patient's respiratory failure * Improved as of 04/14 5. DT prophylaxis with heparin.
--- NOTE | 2017-04-15 08:14 | DCINST_ITS ---
- Discharge Diagnoses Current Active Problems: Current Active and Chronic Problems COPD with acute exacerbation (Acute) Acute hypercapnic respiratory failure (Acute) You will use the following diet at home:: Calorie/Carbohydrate Controlled ( specify 1200, 1400, etc) - 1800 kcal/day Your food should be the consistency of: Regular Your liquids should be the consistency of: Regular/Thin Discharge Activity: Return to Normal Activity Call your doctor if you observe: Fever of 101 or Higher, Shortness of breath Instructions: Discharge Instructions: COPD Allergies/Adverse Reactions: Allergies No Known Allergies Allergy (Verified 04/10/17 16:03) Medications to take at Discharge Aspirin 81 mg PO DAILY@0800 06/04/14 Furosemide [Lasix] 40 mg PO BIDLX 06/04/14 GlipiZIDE [Glucotrol] 10 mg PO BIDAC 06/04/14 Levothyroxine [Synthroid] 150 mcg PO DAILY 06/04/14 Lorazepam [Ativan] 0.5 mg PO DAILY PRN PRN 06/04/14 Spironolactone [Aldactone] 25 mg PO BID 06/04/14 Insulin Aspart [Novolog Vial] See Protocol SQ TIDCM 06/25/14 Cyanocobalamin (Vitamin B-12) [B-12] 1,000 mcg PO DAILY 09/08/14 Lisinopril [Zestril] 40 mg PO BID 12/06/14 Sitagliptin Phosphate [Januvia] 100 mg PO DAILY 05/29/16 Atorvastatin Calcium [Lipitor] 40 mg PO QHS 04/12/17 Glucosamine HCl 500 mg PO DAILY 04/12/17 Insulin Detemir [Levemir FlexPen] 35 units SC BID 04/12/17 Ipratropium/Albuterol Sulfate [Duoneb] 3 ml INHALATION Q6H PRN 04/12/17 Metformin HCl 1,000 mg PO BID 04/12/17 Metolazone [Zaroxolyn] 2.5 mg PO DAILY 04/12/17 Levofloxacin [Levaquin] 500 mg PO DAILY@0600 #2 tab 04/15/17 Prednisone 4 tab PO DAILY #12 tab 04/15/17 The following prescriptions were given: Levofloxacin [Levaquin] 500 mg PO DAILY@0600 #2 tab Prednisone 4 tab PO DAILY #12 tab Primary Care Physician: Chinmay Sin MD [Primary Care Provider] - Within 2 Weeks Please Follow Up With: Vicente Manzanares MD When: 2 weeks Proposed Discharge Date: 04/15/17
--- NOTE | 2017-04-15 08:14 | PCM.DC.SUM ---
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 Had his thyroid out at the same time. No chemo or radiation were given. tracheostomy (Chronic) 2006 History of diastolic dysfunction (Chronic) EF 55% with abnoraml relaxation on 06/05/14 Morbid obesity with BMI of 45.0-49.9, adult (Chronic) Gout (Chronic) Colon polyps (Chronic) COPD (chronic obstructive pulmonary disease) (Chronic) History of laryngeal cancer (Chronic) Hospital Course and Treatment Imaging Results: Clinical Impression(s) from Imaging Studies Chest X-Ray 04/12/17 15:20 IMPRESSION: No acute thoracic pathology. Electronically Signed: Nicolás Levine, at 16:16 EST Tel , Service support , Operations: None Procedures: None Summary of Care Provided: The patient is a 62 year old M is with shortness of breath. Patient was found to have hypercapnic respiratory failure secondary to patient was started on IV steroids and steadily improved. Patient does have oxygen at home which she is primarily at night. Patient has been on trach mask here but the flow rate is been very minimal and he is doing well. On exam he is otherwise feeling well. So patient will be discharged with 3 more days of prednisone. Patient also be discharged with the Levaquin as well despite no infiltrate noted on chest x-ray. Patient also does have diabetes which been uncontrolled. With the steroids but his hemoglobin A1c is 8.9. Patient's meter be increased to 40 twice daily. 1. Acute exacerbation of COPD Improved. Continue with bronchodilators Change steroids to prednisone 40 mg daily. That will certainly depend on what his oxygen requirements are. Patient is on 6 L via his tracheostomy at home. Is still on the trach mask. Lungs do sound better today. Given the patient's increased oxygen requirements and no change in therapy he would like to watch patient for another 24 hours prior to discharge. Patient will need to follow-up with Dr. Manzanares as outpatient. Appointment scheduled previously for 2 weeks Check an ambulatory pulse ox 2. Diabetes mellitus type 2 Uncontrolled at this time Certainly the steroids are a contributing factor With a decrease in the steroids I dissipate his blood sugars improving but I suspect that his blood sugars are probably on the high side at baseline. I will add scheduled NovoLog to his regiment for now. Hemoglobin A1c is 8.9 I anticipate the blood sugars to improve with decreasing steroids. Increase levemir dosing to 40 BID (up from 35). Continue Januvia and Metformin. Consider adding scheduled log depending on how blood sugars play out. 3. Acute on chronic hypercapnic respiratory failure Urinary to COPD exacerbation plus pulmonary hypertension and cor pulmonale Wean oxygen as tolerated Mention of hypoxic respiratory failure on history and physical but I do not see any evidence of hypoxia vital signs but the patient was hypercapnic on her ABG. 4. Leukocytosis No evidence of any infection on chest x-ray On empiric Levaquin. With just continue for 5 days, with stop date on April 16. May be reactive with the patient's respiratory failure Improved as of 04/14[] Discharge Diet: 1800 Calorie Control Diet Discharge Activity: Return to Normal Activity Call your doctor if you observe: Fever of 101 or Higher, Shortness of breath Home Medications: Medications to take at Discharge Aspirin 81 mg PO DAILY@0800 06/04/14 Furosemide [Lasix] 40 mg PO BIDLX 06/04/14 GlipiZIDE [Glucotrol] 10 mg PO BIDAC 06/04/14 Levothyroxine [Synthroid] 150 mcg PO DAILY 06/04/14 Lorazepam [Ativan] 0.5 mg PO DAILY PRN PRN 06/04/14 Spironolactone [Aldactone] 25 mg PO BID 06/04/14 Insulin Aspart [Novolog Vial] See Protocol SQ TIDCM 06/25/14 Cyanocobalamin (Vitamin B-12) [B-12] 1,000 mcg PO DAILY 09/08/14 Lisinopril [Zestril] 40 mg PO BID 12/06/14 Sitagliptin Phosphate [Januvia] 100 mg PO DAILY 05/29/16 Atorvastatin Calcium [Lipitor] 40 mg PO QHS 04/12/17 Glucosamine HCl 500 mg PO DAILY 04/12/17 Insulin Detemir [Levemir FlexPen] 35 units SC BID 04/12/17 Ipratropium/Albuterol Sulfate [Duoneb] 3 ml INHALATION Q6H PRN 04/12/17 Metformin HCl 1,000 mg PO BID 04/12/17 Metolazone [Zaroxolyn] 2.5 mg PO DAILY 04/12/17 Levofloxacin [Levaquin] 500 mg PO DAILY@0600 #2 tab 04/15/17 Prednisone 4 tab PO DAILY #12 tab 04/15/17 Following Prescrptions Were Given to Patient: Levofloxacin [Levaquin] 500 mg PO DAILY@0600 #2 tab Prednisone 4 tab PO DAILY #12 tab Primary Care Physician: Chinmay Sin MD [Primary Care Provider] - Within 2 Weeks Please Follow Up With: Vicente Manzanares MD When: 2 weeks Patient Instructions: Discharge Instructions: COPD Disposition: Home Minutes spent on discharge:: 32 Patient Condition:: Fair Meaningful Use Info Meaningful Use Diagnoses (Choose all that apply): None applicable Code Visit Inpatient E&M: 15747 Disch Hosp
--- NOTE | 2017-04-15 08:18 | DS.PCM_ITS ---
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 Had his thyroid out at the same time. No chemo or radiation were given. tracheostomy (Chronic) 2006 History of diastolic dysfunction (Chronic) EF 55% with abnoraml relaxation on 06/05/14 Morbid obesity with BMI of 45.0-49.9, adult (Chronic) Gout (Chronic) Colon polyps (Chronic) COPD (chronic obstructive pulmonary disease) (Chronic) History of laryngeal cancer (Chronic) Hospital Course and Treatment Imaging Results: Clinical Impression(s) from Imaging Studies Chest X-Ray 04/12/17 15:20 IMPRESSION: No acute thoracic pathology. Electronically Signed: Nicolás Levine, at 16:16 EST Tel , Service support , Operations: None Procedures: None Summary of Care Provided: The patient is a 62 year old M is with shortness of breath. Patient was found to have hypercapnic respiratory failure secondary to patient was started on IV steroids and steadily improved. Patient does have oxygen at home which she is primarily at night. Patient has been on trach mask here but the flow rate is been very minimal and he is doing well. On exam he is otherwise feeling well. So patient will be discharged with 3 more days of prednisone. Patient also be discharged with the Levaquin as well despite no infiltrate noted on chest x-ray. Patient also does have diabetes which been uncontrolled. With the steroids but his hemoglobin A1c is 8.9. Patient's meter be increased to 40 twice daily. 1. Acute exacerbation of COPD * Improved. * Continue with bronchodilators * Change steroids to prednisone 40 mg daily. * That will certainly depend on what his oxygen requirements are. Patient is on 6 L via his tracheostomy at home. Is still on the trach mask. Lungs do sound better today. Given the patient's increased oxygen requirements and no change in therapy he would like to watch patient for another 24 hours prior to discharge. * Patient will need to follow-up with Dr. Manzanares as outpatient. Appointment scheduled previously for 2 weeks * Check an ambulatory pulse ox 2. Diabetes mellitus type 2 * Uncontrolled at this time * Certainly the steroids are a contributing factor * With a decrease in the steroids I dissipate his blood sugars improving but I suspect that his blood sugars are probably on the high side at baseline. * I will add scheduled NovoLog to his regiment for now. * Hemoglobin A1c is 8.9 * I anticipate the blood sugars to improve with decreasing steroids. * Increase levemir dosing to 40 BID (up from 35). Continue Januvia and Metformin. Consider adding scheduled log depending on how blood sugars play out. 3. Acute on chronic hypercapnic respiratory failure * Urinary to COPD exacerbation plus pulmonary hypertension and cor pulmonale * Wean oxygen as tolerated * Mention of hypoxic respiratory failure on history and physical but I do not see any evidence of hypoxia vital signs but the patient was hypercapnic on her ABG. 4. Leukocytosis * No evidence of any infection on chest x-ray * On empiric Levaquin. With just continue for 5 days, with stop date on April 16. * May be reactive with the patient's respiratory failure * Improved as of 04/14[] Discharge Diet: 1800 Calorie Control Diet Discharge Activity: Return to Normal Activity Call your doctor if you observe: Fever of 101 or Higher, Shortness of breath Home Medications: Medications to take at Discharge Aspirin 81 mg PO DAILY@0800 06/04/14 Furosemide [Lasix] 40 mg PO BIDLX 06/04/14 GlipiZIDE [Glucotrol] 10 mg PO BIDAC 06/04/14 Levothyroxine [Synthroid] 150 mcg PO DAILY 06/04/14 Lorazepam [Ativan] 0.5 mg PO DAILY PRN PRN 06/04/14 Spironolactone [Aldactone] 25 mg PO BID 06/04/14 Insulin Aspart [Novolog Vial] See Protocol SQ TIDCM 06/25/14 Cyanocobalamin (Vitamin B-12) [B-12] 1,000 mcg PO DAILY 09/08/14 Lisinopril [Zestril] 40 mg PO BID 12/06/14 Sitagliptin Phosphate [Januvia] 100 mg PO DAILY 05/29/16 Atorvastatin Calcium [Lipitor] 40 mg PO QHS 04/12/17 Glucosamine HCl 500 mg PO DAILY 04/12/17 Insulin Detemir [Levemir FlexPen] 35 units SC BID 04/12/17 Ipratropium/Albuterol Sulfate [Duoneb] 3 ml INHALATION Q6H PRN 04/12/17 Metformin HCl 1,000 mg PO BID 04/12/17 Metolazone [Zaroxolyn] 2.5 mg PO DAILY 04/12/17 Levofloxacin [Levaquin] 500 mg PO DAILY@0600 #2 tab 04/15/17 Prednisone 4 tab PO DAILY #12 tab 04/15/17 Following Prescrptions Were Given to Patient: Levofloxacin [Levaquin] 500 mg PO DAILY@0600 #2 tab Prednisone 4 tab PO DAILY #12 tab Primary Care Physician: Chinmay Sin MD [Primary Care Provider] - Within 2 Weeks Please Follow Up With: Vicente Manzanares MD When: 2 weeks Patient Instructions: Discharge Instructions: COPD Disposition: Home Minutes spent on discharge:: 32 Patient Condition:: Fair Meaningful Use Info Meaningful Use Diagnoses (Choose all that apply): None applicable Code Visit Inpatient E&M: 38393 Disch Hosp
[2017-04-15] MEDS: metFORMIN HCl 1,000 MG Tablet 1000 MG PO (09:00)
[2017-04-15] MEDS: Aspirin 81 MG TAB.CHEW PO (09:00)
[2017-04-15] MEDS: Furosemide 40 MG Tablet PO (09:01)
[2017-04-15] MEDS: Spironolactone 25 MG Tablet PO (09:01)
[2017-04-15] MEDS: LINAGLIPTIN 5 MG TABLET PO (09:02)
[2017-04-15] MEDS: Metolazone 2.5 MG Tablet PO (09:02)
[2017-04-15] MEDS: Lisinopril 40 MG Tablet PO (09:02)
== END 2017-04-15 10:24 | disposition home or self-care (01) | DRG 189 ==
LOC: ED 17:39 → MS2 17:45
PROVIDERS: Admitting Provider Internal Medicine; Emergency Provider Emergency Medicine; Family Provider Family Medicine; PCP Family Medicine
DX: J96.22 Acute and chronic respiratory failure with hypercapnia (principal); I27.20 Pulmonary hypertension, unspecified; Z93.0 Tracheostomy status; E66.01 Morbid (severe) obesity due to excess calories; E11.65 Type 2 diabetes mellitus with hyperglycemia; Z99.81 Dependence on supplemental oxygen; I27.81 Cor pulmonale (chronic); J44.1 Chronic obstructive pulmonary disease with (acute) exacerbation; Z68.41 Body mass index [BMI] 40.0-44.9, adult; Z23 Encounter for immunization; M10.9 Gout, unspecified; Z85.21 Personal history of malignant neoplasm of larynx; Z87.891 Personal history of nicotine dependence; I25.10 Atherosclerotic heart disease of native coronary artery without angina pectoris; E78.5 Hyperlipidemia, unspecified; E89.0 Postprocedural hypothyroidism; I10 Essential (primary) hypertension; Z79.4 Long term (current) use of insulin
CPT/HCPCS: 31720; 36415; 36600; 71046; 80048; 82803; 82962; 83036; 83880; 84484; 85025; 87070; 87077; 87184; 87186; 87205; 93005; 94640; 96374; 99284; 99285; 90686; A4216

== ENCOUNTER 2017-08-02 23:59 | Inpatient (IN) | payer MEDICARE, SELFPAY ==
[2017-08-02 23:59] VITALS: BP 146/52; PULSE 115; RESP 28; TEMP 36.6; O2SAT 86; BMI 31.4
[2017-08-03] VITALS (16 sets, daily range): BP systolic 112–144; BP diastolic 44–74; PULSE 59–108; RESP 16–30; TEMP 36.9–38.7; O2SAT 93–99; BMI 42.7
--- NOTE | 2017-08-03 00:22 | EKG12_ITS ---
Test Reason : SOB Blood Pressure : / mmHG Vent. Rate : 105 BPM Atrial Rate : 105 BPM P-R Int : 190 ms QRS Dur : 080 ms QT Int : 302 ms P-R-T Axes : 046 047 125 degrees QTc Int : 399 ms Sinus tachycardia T wave abnormality, consider lateral ischemia Abnormal ECG Confirmed by BALTAZAR CHENG, ALEXANDER ([id number]), communications editor LAM HARDY ([id number]) on 08/09/2017 3:09:20 PM Referred By: WILMER Confirmed By:ALEXANDER LEDESMA MD
--- NOTE | 2017-08-03 00:22 | RAD_ITS ---
STUDY: X-RAY CHEST REASON FOR EXAM: Male, 62 years old. Shortness of breath and cough TECHNIQUE: One view COMPARISON: April 12, 2017 FINDINGS: There is mild cardiomegaly. No failure. No pneumonia. No pleural effusions. Normal visualized thoracic spine. Normal visualized ribs, clavicles, and shoulders. There is no demonstrated abnormality of the visualized soft tissue structures of the upper abdomen. RAD/Chest 1 View (Portable) IMPRESSION: Mild cardiomegaly. No acute findings in the lungs Electronically Signed: Benito Winter, at 1:20 EDT Tel , Service support ,
--- NOTE | 2017-08-03 00:26 | ED.DCSUM_ITS ---
- ER Visit Summary Date of Service: 08/03/17 Chief Complaint: Dyspnea, cough History of Present Illness: The patient is a 62 M history of COPD, increasing dyspnea, sputum, wheezing since yesterday. History of tracheostomy placed in 2007 after esophageal cancer. CHF history. No increased swelling. Subjective fevers. Using aerosol treatments at home. No chest pains. No vomiting or diarrhea. No urinary symptoms. No recent hospitalizations. Denies any increased swelling or weight gain. He is on 3 diuretics. Physical Examination: General: Alert and oriented ?3, no acute distress HEENT: Normocephalic, atraumatic. Moist mucosa membranes Neck: supple, nontender. Tracheostomy, yellow sputum from the orifice. Cardiovascular: Regular tachycardic rate and rhythm, no murmurs Respiratory: Lower lobe bronchi bilaterally, no distress Abdomen: Soft, nontender, nondistended Extremities: Nontender, minimal lower extremity edema, pulses intact ?4 Neuro: no focal neurological deficits. Test Results: EKG sinus rate of 105, no ST changes, chronic T-wave inversion in V5 V6. CBC white count 19.3. Creatinine 1.33. INR 1.1. Troponin negative. Lactic acid 1.2. Blood cultures pending. Sputum culture pending. Chest x-ray : No acute process Emergency Department Course and Treatment: Sepsis protocol initiated. Sputum from the trachea, suction and sent for culture. Blood cultures pending. Chest x-ray reviewed myself shows no acute process. EKG was sinus tachycardia. Troponin negative. White count 19.3. Given aerosol treatments. Oxygen O2 stable on oxygen. Patient's white count sputum, concerns for clinical pneumonia. Breath sounds improve on reevaluation. Started on Rocephin and Zithromax initially. Rocephin was given. Discuss with hospitalist, Dr. Mcmillan, has had Pseudomonas from his cultures in the past. Possible colonization. We will stop Zithromax, start Zosyn for coverage due to resistance to Levaquin on previous sputum cultures. Patient will be admitted to the PCU. Treatment Plan: [] Disposition: Admission Impression: 1 COPD exacerbation 2. Clinical pneumonia 3. Hypoxemia This note was generated with [employer] software. It may contain incorrect words, spelling, and punctuation that were not noted in review of the chart prior to signing ED Disposition - Plan for ED Patient: Disposition: Acute Care Hospital [facility] Chief Complaint: Shortness of Breath Diagnosis: COPD exacerbation, Clinical pneumonia, Hypoxemia Referrals: Chinmay Sin MD [Primary Care Provider] -
[2017-08-03 00:33] LABS: Absolute Lymphocyte Count 0.74 X10^3/ul (0.83-4.51); Absolute Neutrophil Count 17.1 X10^3/uL (2.0-7.7); Basophil# 0.02 X10^3/uL; Basophil% 0.1 % (0-1); Eosinophil# 0.03 X10^3/uL; Eosinophils% 0.2 % (0-5); Hematocrit 38.7 % (40-54); Hemoglobin 13.3 g/dl (13.0-16.5); Lymphocyte # 0.74 X10^3/ul (4.0); Lymphocyte % 3.8 % (19-41); Mean Corp Hgb Conc 34.4 g/gl (32-36); Mean Corpuscular Hgb 29.3 pg (27.0-32.0); Mean Corpuscular Volume 85.2 fL (80-94); Mean Platelet Vol. 10.6 fl (6.2-12.0); Monocyte# 1.37 X10^3/uL; Monocyte% 7.1 % (0-10); Neutrophil # 17.07 X10^3/uL (2.7-7.7); Neutrophil % 88.5 % (47-70); POSITIVE COUNT NO; POSITIVE DIFFERENTIAL NO; POSITIVE MORPHOLOGY NO; Platelet Count 317 K/mm3 (150-450); RBC Distribution Width CV 12.4 % (11.6-14.6); RBC Distribution Width SD 38.2 fl (35.1-43.9); Red Blood Count 4.54 M/mm3 (4.6-6.2); White Blood Count 19.3 K/mm3 (4.4-11.0)
[2017-08-03] MEDS: Ipratropium/Albuterol Sulfate 3 ML AMPUL.NEB INHALATION ×4 (00:36→19:55)
[2017-08-03 00:39] LABS: International Normalized Ratio 1.1; Partial Thromboplast Time 28.8 Seconds (24.1-36.2)
[2017-08-03 00:53] LABS: Lactic Acid 1.2 mmol/L (0.4-2.0)
[2017-08-03 00:55] LABS: ALB/GLOB Ratio 0.9 RATIO (0.9-2.4); AST(SGOT) 13 U/L (15-37); Alanine Aminotransfer ALT/SGPT 17 U/L (16-61); Albumin, Serum 3.8 g/dL (3.2-5.0); Alkaline Phosphatase 71 U/L (45-117); Anion Gap 8 (5-15); BUN 25 mg/dL (7-18); BUN/Creat Ratio 18.8 RATIO (10-20); Calcium,Total 9.2 mg/dL (8.5-10.1); Chloride 102 mmol/L (98-107); Creatinine, Serum 1.33 mg/dL (0.70-1.30); EST Glomerular Filtration Rate 58 mL/min (>60); Est Glom Filt Rate - Afr Amer 70 mL/min (>60); Estimated Creatinine Clearance 61.33 ml/min; Globulin 4.1 g/dL (2.2-4.2); Glucose 202 mg/dL (74-106); Potassium 4.5 mmol/L (3.5-5.1); Protein, Total 7.9 g/dL (6.4-8.2); Sodium Level 136 mmol/L (136-145)
[2017-08-03] MEDS: Ceftriaxone 1 GM/50 ML BAG IV (01:48)
--- NOTE | 2017-08-03 02:18 | NURSING ---
Called Avani TAVARES in ED and ok to send patient to the floor.
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
[2017-08-03 03:41] LABS: Bedside Glucose 206 mg/dL (70-110)
[2017-08-03] MEDS: Acetaminophen 325 MG Tablet 650 MG PO (04:48)
[2017-08-03] MEDS: Heparin Injection (Vial) 5,000 UNIT/ML VIAL 5000 UNIT SC ×3 (06:51→21:14)
[2017-08-03] MEDS: Levothyroxine 150 MCG Tablet PO (06:51)
[2017-08-03 07:00] LABS: Bedside Glucose 137 mg/dL (70-110)
[2017-08-03] MEDS: Acetylcysteine 800 MG/4 ML VIAL.NEB. INHALATION ×2 (07:13→19:55)
[2017-08-03] MEDS: metFORMIN HCl 1,000 MG Tablet 1000 MG PO ×2 (08:30→17:05)
[2017-08-03] MEDS: glipiZIDE 10 MG Tablet PO ×2 (08:31→17:05)
[2017-08-03] MEDS: Aspirin 81 MG TAB.CHEW PO (08:31)
[2017-08-03] MEDS: Metolazone 2.5 MG Tablet PO (09:14)
[2017-08-03] MEDS: Glucerna Shake 120 ML LIQUID PO (09:14)
[2017-08-03] MEDS: LINAGLIPTIN 5 MG TABLET PO (09:14)
[2017-08-03] MEDS: Lisinopril 40 MG Tablet PO ×2 (09:14→21:13)
[2017-08-03] MEDS: Spironolactone 25 MG Tablet PO ×2 (09:14→21:14)
[2017-08-03] MEDS: Furosemide 40 MG Tablet PO ×2 (09:14→17:06)
--- NOTE | 2017-08-03 11:12 | CASEMGMT ---
Face to Face with patient for initial transition planning/care coordination assessment. RN TALA introduced self and role [facility], pt voices understanding and consents to assessment at this time. Pt is sitting up in chair in no distress at this time. Pt is A/Ox4 at this time and answers all questions appropriately at this time. Care providers, pharmacy, and demographics verified. See attached link. Pt voices no further concerns/needs at this time. Advised pt to ask for CM if any further questions/concerns/needs arise, voices understanding. CM to follow for any further discharge planning/needs. PLAN: [place] [facility]
[2017-08-03 11:30] LABS: Bedside Glucose 107 mg/dL (70-110)
[2017-08-03 12:16] LABS: Bacteria 0 SEEN /hpf (None Seen); Mucous, Urine 0 SEEN /hpf (<or=2+); Red Blood Cells-Urine 0 SEEN /hpf (0-5); Squamous Epithelial Cells - UA 0 SEEN /hpf (0-5)
[2017-08-03 12:18] LABS: Color, Urine Yellow (Yellow); Glucose, Dipstick Normal (Normal); Ketone-Dipstick 5 mg/dl (Negative); Leukocyte Esterase-Dipstick Negative /ul (Negative); Nitrite-Dipstick Negative (Negative); Occult Blood-Urine Negative /ul (Negative); Protein-Dipstick 100 mg/dl (Negative); Specific Gravity, Urine 1.015 (1.002-1.030); Urine Bilirubin Dipstick Negative (Negative); Urine Clarity Clear (Clear); Urine Urobilinogen Normal (Normal)
--- NOTE | 2017-08-03 12:22 | CASEMGMT ---
SW met with patient and his . Introduced self and role at [facility]. SW completed healthcare power of assistant city attorney papers with patient ans his . Copies were made, one placed in chart, other copies and original were given to patient and his . Alessandra FLYNN MSW
[2017-08-03 12:33] LABS: White Blood Cells 0-5 SEEN /hpf (0-5)
[2017-08-03 12:34] LABS: Amorphous Sediment 1+
[2017-08-03] MEDS: Piperacil/Tazobactam 3.375 GM/50 ML ML IV ×2 (13:32→21:13)
[2017-08-03 17:11] LABS: Bedside Glucose 114 mg/dL (70-110)
[2017-08-03 21:10] LABS: Bedside Glucose 49 mg/dL (70-110)
[2017-08-03] MEDS: Atorvastatin Calcium 40 MG Tablet PO (21:13)
[2017-08-03 23:26] LABS: Bedside Glucose 88 mg/dL (70-110)
[2017-08-04] VITALS (14 sets, daily range): BP systolic 101–133; BP diastolic 48–72; PULSE 65–90; RESP 16–20; TEMP 36.7–37.2; O2SAT 94–99
[2017-08-04 00:01] LABS: Bedside Glucose 81 mg/dL (70-110)
[2017-08-04 00:01] LABS: Bedside Glucose 50 mg/dL (70-110)
[2017-08-04] MEDS: Ipratropium/Albuterol Sulfate 3 ML AMPUL.NEB INHALATION ×4 (00:43→18:43)
--- NOTE | 2017-08-04 04:00 | RAD_ITS ---
STUDY: X-RAY CHEST REASON FOR EXAM: Male, 62 years old. SOB TECHNIQUE: Single frontal view of the chest. COMPARISON: 08/03/2017 FINDINGS: Left basilar atelectasis. There is no demonstrated pleural abnormality. Stable cardiac silhouette. Normal mediastinum and laura. Normal visualized pulmonary arteries. Normal visualized aortic arch and descending thoracic aorta. There are diffuse degenerative changes of the visualized thoracic spine. Normal visualized ribs, clavicles, and shoulders. There is no demonstrated abnormality of the visualized soft tissue structures of the upper abdomen. RAD/Chest 1 View (Portable) IMPRESSION: Left basilar atelectasis. Electronically Signed: Shad Hernandez MD at 3:27 EDT Tel , Service support ,
[2017-08-04 06:32] LABS: Absolute Lymphocyte Count 1.01 X10^3/ul (0.83-4.51); Absolute Neutrophil Count 12.2 X10^3/uL (2.0-7.7); Basophil# 0.01 X10^3/uL; Basophil% 0.1 % (0-1); Eosinophils% 0.7 % (0-5); Hematocrit 34.2 % (40-54); Hemoglobin 11.2 g/dl (13.0-16.5); Lymphocyte # 1.01 X10^3/ul (4.0); Lymphocyte % 6.9 % (19-41); Mean Corp Hgb Conc 32.7 g/gl (32-36); Mean Corpuscular Hgb 28.6 pg (27.0-32.0); Mean Corpuscular Volume 87.5 fL (80-94); Mean Platelet Vol. 10.5 fl (6.2-12.0); Monocyte# 1.22 X10^3/uL; Monocyte% 8.4 % (0-10); Neutrophil # 12.18 X10^3/uL (2.7-7.7); Neutrophil % 83.7 % (47-70); POSITIVE COUNT NO; POSITIVE DIFFERENTIAL NO; POSITIVE MORPHOLOGY NO; Platelet Count 285 K/mm3 (150-450); RBC Distribution Width CV 12.5 % (11.6-14.6); RBC Distribution Width SD 39.2 fl (35.1-43.9); Red Blood Count 3.91 M/mm3 (4.6-6.2); White Blood Count 14.6 K/mm3 (4.4-11.0)
[2017-08-04] MEDS: Piperacil/Tazobactam 3.375 GM/50 ML ML IV ×3 (06:44→21:13)
[2017-08-04] MEDS: Heparin Injection (Vial) 5,000 UNIT/ML VIAL 5000 UNIT SC ×3 (06:45→21:12)
[2017-08-04] MEDS: Levothyroxine 150 MCG Tablet PO (06:45)
[2017-08-04 06:51] LABS: Anion Gap 7 (5-15); BUN 32 mg/dL (7-18); BUN/Creat Ratio 22.2 RATIO (10-20); Calcium,Total 8.3 mg/dL (8.5-10.1); Chloride 101 mmol/L (98-107); Creatinine, Serum 1.44 mg/dL (0.70-1.30); EST Glomerular Filtration Rate 53 mL/min (>60); Est Glom Filt Rate - Afr Amer 64 mL/min (>60); Estimated Creatinine Clearance 56.65 ml/min; Glucose 84 mg/dL (74-106); Potassium 4.2 mmol/L (3.5-5.1); Sodium Level 135 mmol/L (136-145)
[2017-08-04 06:55] LABS: Bedside Glucose 92 mg/dL (70-110)
[2017-08-04] MEDS: Acetylcysteine 800 MG/4 ML VIAL.NEB. INHALATION ×2 (07:24→18:43)
--- NOTE | 2017-08-04 07:47 | PCM.PROGNOTE ---
Patient Problems: Active and Suspected Problems COPD exacerbation (Acute) Hypoxemia (Acute) Subjective: Chief complaint: Follow-up after admission for suspected community-acquired pneumonia and probable COPD exacerbation. Patient seen and examined. No acute events overnight. Patient stated that his breathing is getting better, still complaining of productive cough. No fever or chills. Vital signs are stable, pulse ox is maintained on trach collar with 7 L of oxygen and that is his baseline. - Physical Exam General: Alert, Oriented x3, Cooperative, No apparent distress HEENT: Atraumatic, PERRLA, EOMI, Normocephalic Oral: Moist Mucosa, No Gingival or Mucosal Lesions/ Ulcerations Neck: Supple, No JVD, Negative Carotid Bruits, Trachea Midline, Thyroid Normal Size and Texture Lungs: No wheeze, No rales, Diminished, Rhonchi, - - Bilateral, more at the base, scattered rhonchi. Cardiovascular: Regular rate, Regular Rhythm, Normal S1, Normal S2, No murmurs Abdomen: Bowel Sounds Present, Soft, Non Tender, Non-Distended, No Hepato-splenomegaly Extremities: No clubbing, No cyanosis, No edema Skin: No rashes, No breakdown Lymphatic: No Cervical, Supraclavicular, or Inguinal Adenopathy Neurological: Cranial nerves II-XII grossly intact, Motor Exam 5/5 strength throughout Psych/Mental Status: Normal Affect, Appropriate, Alert and oriented to time, place, person, mood and affect Vital Signs Temp Pulse Resp BP Pulse Ox 98.4 F 66 20 H 112/62 95 08/04/17 02:59 08/04/17 06:58 08/04/17 02:59 08/04/17 02:59 08/04/17 02:59 Oxygen Flow Rate (L/min) 7 Oxygen Delivery Method Trach Collar Weight: 306 lb 7.08 oz Body Mass Index (BMI) 42.7 Intake and Output for Last 24 Hours 08/02/17 08/03/17 08/04/17 23:59 23:59 23:59 Intake Total 1311 / 1311 1134 / 1134 Balance 1311 / 1311 1134 / 1134 Microbiology Past 72 Hours 08/03/17 12:05 Streptococcus pneumoniae Antigen (M - Final Urine, Clean Catch 08/03/17 12:05 Legionella Antigen - Final Urine, Clean Catch Laboratory Tests Past 24 Hrs 0608/04/17 08/04/17 12:05 06:04 06:04 WBC 14.6 H RBC 3.91 L Hgb 11.2 L Hct 34.2 L MCV 87.5 MCH 28.6 MCHC 32.7 RDW 12.5 RDW Differential 39.2 Plt Count 285 MPV 10.5 Immature Gran % (Auto) 0.200 Neut % (Auto) 83.7 H Lymph % (Auto) 6.9 L [place] % (Auto) 8.4 Eos % (Auto) 0.7 Baso % (Auto) 0.1 Absolute Neuts (auto) 12.2 H Absolute Lymphs (auto) 1.01 Total Counted Not Reportable Sodium 135 L Potassium 4.2 Chloride 101 Carbon Dioxide 27.0 Anion Gap 7 BUN 32 H Creatinine 1.44 H Estim Creat Clear Calc 56.65 Est GFR (MDRD) Af Amer 64 Est GFR (MDRD) Non-Af 53 L BUN/Creatinine Ratio 22.2 H Glucose 84 Calcium 8.3 L Urine Color Yellow Urine Clarity Clear Urine pH 5.0 Ur Specific [place] 1.015 Urine Protein 100 H Urine Glucose (UA) Normal Urine Ketones 5 H Urine Occult Blood Negative Urine Nitrite Negative Urine Bilirubin Negative Urine Urobilinogen Normal Ur Leukocyte Esterase Negative Urine RBC 0 SEEN Urine WBC 0-5 SEEN Ur Squamous Epith Cells 0 SEEN Amorphous Sediment 1+ Urine Bacteria 0 SEEN Urine Mucus 0 SEEN POC Glucose 08/04/17 08/03/17 08/03/17 06:41 23:19 21:47 POC Glucose 92 88 81 08/03/17 08/03/17 08/03/17 21:10 21:05 17:02 POC Glucose 50 L 49 L 114 H 08/03/17 11:29 POC Glucose 107 Clinical Impression(s) from Imaging Studies Chest X-Ray 08/03/17 00:22 IMPRESSION: Mild cardiomegaly. No acute findings in the lungs Electronically Signed: Benito Winter, at 1:20 EDT Tel , Service support , Medical Necessity - Tobacco Use Smoking Status: Former smoker Tobacco Use: Non-smoker Assessment/Plan All Active Problems COPD exacerbation (Acute) Hypoxemia (Acute) Acute hypercapnic respiratory failure (Acute) Shortness of breath (Acute) COPD with acute exacerbation (Acute) This is a 62 years old male patient presented to the emergency room because of worsening shortness of breath with productive cough, found to have significant leukocytosis and his chest x-ray revealed blunting of the left costophrenic angle with concern of underlying infiltrate, was admitted as a case of suspected community-acquired pneumonia and probable acute COPD exacerbation. #1 suspected chronic acquired pneumonia: He is on IV Zosyn. Vital signs are stable, has been afebrile, white blood cell count is trending down. Pneumococcal and Legionella antigen negative. Sputum, blood and urine cultures are pending. Lactic acid was normal. Repeat chest x-ray from today reviewed and revealed probable left basilar infiltrate, pending official report. Plan to continue same treatment. #2 probable acute COPD exacerbation: He is on bronchodilators and antibiotics. At home, he is on oxygen through the trach collar at 7 L. At this time, he is maintaining his pulse ox at the same oxygen supply. Plan to continue same treatment. #3 chronic hypoxic respiratory failure: Secondary to COPD and pulmonary hypertension as well as history of laryngeal cancer status post surgery and tracheostomy. At home, he has been on 7 L #4 type 2 diabetes mellitus: Blood sugar stable, continue glipizide, metformin, Tradjenta, Lantus and sliding scale. #5 hypertension: Blood pressure stable, continue Lasix, lisinopril, Zaroxolyn and Aldactone. #6 history of laryngeal cancer: Status post surgery and tracheostomy #7 hypothyroidism: Continue levothyroxine. #8 stage III chronic kidney disease: Baseline creatinine is around 1.3-1.5 mg/dL. Today's creatinine is 1.44, stable at baseline. #9 pulmonary hypertension: Continue diuretics including Lasix, Zaroxolyn Aldactone. #10 DVT prophylaxis: Subcu heparin. This note was generated with [employer] dictation software. It may contain incorrect words, spelling, and punctuation that were not noted in checking the note before signing. Code Visit Inpatient E&M: 21256 Subs Hosp L2
--- NOTE | 2017-08-04 07:56 | PN_ITS ---
Patient Problems: Active and Suspected Problems COPD exacerbation (Acute) Hypoxemia (Acute) Subjective: Chief complaint: Follow-up after admission for suspected community-acquired pneumonia and probable COPD exacerbation. Patient seen and examined. No acute events overnight. Patient stated that his breathing is getting better, still complaining of productive cough. No fever or chills. Vital signs are stable, pulse ox is maintained on trach collar with 7 L of oxygen and that is his baseline. - Physical Exam General: Alert, Oriented x3, Cooperative, No apparent distress HEENT: Atraumatic, PERRLA, EOMI, Normocephalic Oral: Moist Mucosa, No Gingival or Mucosal Lesions/ Ulcerations Neck: Supple, No JVD, Negative Carotid Bruits, Trachea Midline, Thyroid Normal Size and Texture Lungs: No wheeze, No rales, Diminished, Rhonchi, - - Bilateral, more at the base , scattered rhonchi. Cardiovascular: Regular rate, Regular Rhythm, Normal S1, Normal S2, No murmurs Abdomen: Bowel Sounds Present, Soft, Non Tender, Non-Distended, No Hepato- splenomegaly Extremities: No clubbing, No cyanosis, No edema Skin: No rashes, No breakdown Lymphatic: No Cervical, Supraclavicular, or Inguinal Adenopathy Neurological: Cranial nerves II-XII grossly intact, Motor Exam 5/5 strength throughout Psych/Mental Status: Normal Affect, Appropriate, Alert and oriented to time, place, person, mood and affect Vital Signs Temp Pulse Resp BP Pulse Ox 98.4 F 66 20 H 112/62 95 08/04/17 02:59 08/04/17 06:58 08/04/17 02:59 08/04/17 02:59 08/04/17 02:59 Oxygen Flow Rate (L/min) 7 Oxygen Delivery Method Trach Collar Weight: 306 lb 7.08 oz Body Mass Index (BMI) 42.7 Intake and Output for Last 24 Hours 08/02/17 08/03/17 08/04/17 23:59 23:59 23:59 Intake Total 1311 / 1311 1134 / 1134 Balance 1311 / 1311 1134 / 1134 Microbiology Past 72 Hours 08/03/17 12:05 Streptococcus pneumoniae Antigen (M - Final Urine, Clean Catch 08/03/17 12:05 Legionella Antigen - Final Urine, Clean Catch Laboratory Tests Past 24 Hrs 0608/04/17 08/04/17 12:05 06:04 06:04 WBC 14.6 H RBC 3.91 L Hgb 11.2 L Hct 34.2 L MCV 87.5 MCH 28.6 MCHC 32.7 RDW 12.5 RDW Differential 39.2 Plt Count 285 MPV 10.5 Immature Gran % (Auto) 0.200 Neut % (Auto) 83.7 H Lymph % (Auto) 6.9 L [place] % (Auto) 8.4 Eos % (Auto) 0.7 Baso % (Auto) 0.1 Absolute Neuts (auto) 12.2 H Absolute Lymphs (auto) 1.01 Total Counted Not Reportable Sodium 135 L Potassium 4.2 Chloride 101 Carbon Dioxide 27.0 Anion Gap 7 BUN 32 H Creatinine 1.44 H Estim Creat Clear Calc 56.65 Est GFR (MDRD) Af Amer 64 Est GFR (MDRD) Non-Af 53 L BUN/Creatinine Ratio 22.2 H Glucose 84 Calcium 8.3 L Urine Color Yellow Urine Clarity Clear Urine pH 5.0 Ur Specific [place] 1.015 Urine Protein 100 H Urine Glucose (UA) Normal Urine Ketones 5 H Urine Occult Blood Negative Urine Nitrite Negative Urine Bilirubin Negative Urine Urobilinogen Normal Ur Leukocyte Esterase Negative Urine RBC 0 SEEN Urine WBC 0-5 SEEN Ur Squamous Epith Cells 0 SEEN Amorphous Sediment 1+ Urine Bacteria 0 SEEN Urine Mucus 0 SEEN POC Glucose 08/04/17 08/03/17 08/03/17 06:41 23:19 21:47 POC Glucose 92 88 81 08/03/17 08/03/17 08/03/17 21:10 21:05 17:02 POC Glucose 50 L 49 L 114 H 08/03/17 11:29 POC Glucose 107 Clinical Impression(s) from Imaging Studies Chest X-Ray 08/03/17 00:22 IMPRESSION: Mild cardiomegaly. No acute findings in the lungs Electronically Signed: Benito Winter, at 1:20 EDT Tel , Service support , Medical Necessity - Tobacco Use Smoking Status: Former smoker Tobacco Use: Non-smoker Assessment/Plan All Active Problems COPD exacerbation (Acute) Hypoxemia (Acute) Acute hypercapnic respiratory failure (Acute) Shortness of breath (Acute) COPD with acute exacerbation (Acute) This is a 62 years old male patient presented to the emergency room because of worsening shortness of breath with productive cough, found to have significant leukocytosis and his chest x-ray revealed blunting of the left costophrenic angle with concern of underlying infiltrate, was admitted as a case of suspected community-acquired pneumonia and probable acute COPD exacerbation. #1 suspected chronic acquired pneumonia: He is on IV Zosyn. Vital signs are stable, has been afebrile, white blood cell count is trending down. Pneumococcal and Legionella antigen negative. Sputum, blood and urine cultures are pending. Lactic acid was normal. Repeat chest x-ray from today reviewed and revealed probable left basilar infiltrate, pending official report. Plan to continue same treatment. #2 probable acute COPD exacerbation: He is on bronchodilators and antibiotics. At home, he is on oxygen through the trach collar at 7 L. At this time, he is maintaining his pulse ox at the same oxygen supply. Plan to continue same treatment. #3 chronic hypoxic respiratory failure: Secondary to COPD and pulmonary hypertension as well as history of laryngeal cancer status post surgery and tracheostomy. At home, he has been on 7 L #4 type 2 diabetes mellitus: Blood sugar stable, continue glipizide, metformin, Tradjenta, Lantus and sliding scale. #5 hypertension: Blood pressure stable, continue Lasix, lisinopril, Zaroxolyn and Aldactone. #6 history of laryngeal cancer: Status post surgery and tracheostomy #7 hypothyroidism: Continue levothyroxine. #8 stage III chronic kidney disease: Baseline creatinine is around 1.3-1.5 mg/ dL. Today's creatinine is 1.44, stable at baseline. #9 pulmonary hypertension: Continue diuretics including Lasix, Zaroxolyn Aldactone. #10 DVT prophylaxis: Subcu heparin. This note was generated with [employer] dictation software. It may contain incorrect words, spelling, and punctuation that were not noted in checking the note before signing. Code Visit Inpatient E&M: 37495 Subs Hosp L2
[2017-08-04] MEDS: glipiZIDE 10 MG Tablet PO ×2 (08:13→16:58)
[2017-08-04] MEDS: metFORMIN HCl 1,000 MG Tablet 1000 MG PO ×2 (08:13→16:58)
[2017-08-04] MEDS: Aspirin 81 MG TAB.CHEW PO (08:14)
[2017-08-04] MEDS: Metolazone 2.5 MG Tablet PO (09:01)
[2017-08-04] MEDS: Lisinopril 40 MG Tablet PO ×2 (09:02→21:12)
[2017-08-04] MEDS: Furosemide 40 MG Tablet PO ×2 (09:02→16:59)
[2017-08-04] MEDS: LINAGLIPTIN 5 MG TABLET PO (09:02)
[2017-08-04] MEDS: Spironolactone 25 MG Tablet PO ×2 (09:02→21:12)
[2017-08-04] MEDS: Insulin Lispro 100 UNIT/ML INSULN.PEN SC (11:15)
[2017-08-04 11:26] LABS: Bedside Glucose 179 mg/dL (70-110)
[2017-08-04 17:05] LABS: Bedside Glucose 74 mg/dL (70-110)
[2017-08-04] MEDS: Atorvastatin Calcium 40 MG Tablet PO (21:12)
[2017-08-04 21:55] LABS: Bedside Glucose 102 mg/dL (70-110)
[2017-08-05 02:59] VITALS: PULSE 64
[2017-08-05 03:00] VITALS: BP 129/51; PULSE 71; RESP 16; TEMP 36.9; O2SAT 96
[2017-08-05] MEDS: Piperacil/Tazobactam 3.375 GM/50 ML ML IV (06:27)
[2017-08-05] MEDS: Heparin Injection (Vial) 5,000 UNIT/ML VIAL 5000 UNIT SC (06:27)
[2017-08-05] MEDS: Levothyroxine 150 MCG Tablet PO (06:27)
[2017-08-05] MEDS: Acetylcysteine 800 MG/4 ML VIAL.NEB. INHALATION (06:54)
[2017-08-05] MEDS: Ipratropium/Albuterol Sulfate 3 ML AMPUL.NEB INHALATION (06:54)
[2017-08-05 06:56] VITALS: PULSE 72; RESP 18; O2SAT 97
[2017-08-05 07:00] VITALS: PULSE 74
[2017-08-05 07:06] LABS: Bedside Glucose 80 mg/dL (70-110)
[2017-08-05 07:29] LABS: Absolute Lymphocyte Count 1.09 X10^3/ul (0.83-4.51); Absolute Neutrophil Count 8.7 X10^3/uL (2.0-7.7); Basophil# 0.01 X10^3/uL; Basophil% 0.1 % (0-1); Eosinophil# 0.16 X10^3/uL; Eosinophils% 1.5 % (0-5); Hematocrit 35.2 % (40-54); Hemoglobin 11.3 g/dl (13.0-16.5); Lymphocyte # 1.09 X10^3/ul (4.0); Mean Corp Hgb Conc 32.1 g/gl (32-36); Mean Corpuscular Volume 87.1 fL (80-94); Mean Platelet Vol. 10.4 fl (6.2-12.0); Monocyte# 0.96 X10^3/uL; Monocyte% 8.8 % (0-10); Neutrophil # 8.65 X10^3/uL (2.7-7.7); Neutrophil % 79.5 % (47-70); Platelet Count 290 K/mm3 (150-450); RBC Distribution Width CV 12.5 % (11.6-14.6); RBC Distribution Width SD 40.5 fl (35.1-43.9); Red Blood Count 4.04 M/mm3 (4.6-6.2); White Blood Count 10.9 K/mm3 (4.4-11.0)
[2017-08-05 07:30] LABS: POSITIVE COUNT NO; POSITIVE DIFFERENTIAL NO; POSITIVE MORPHOLOGY NO
--- NOTE | 2017-08-05 07:49 | PCM.PROGNOTE ---
Patient Problems: Active and Suspected Problems COPD exacerbation (Acute) Hypoxemia (Acute) Subjective: Chief complaint: Follow-up after admission for suspected community-acquired pneumonia and probable COPD exacerbation. Patient seen and examined. No acute events overnight. He mentioned that he is feeling better, less short of breath, still complaining of productive cough. Denies fever chills. His vital signs stable. - Physical Exam General: Alert, Oriented x3, Cooperative, No apparent distress HEENT: Atraumatic, PERRLA, EOMI, Normocephalic Oral: Moist Mucosa, No Gingival or Mucosal Lesions/ Ulcerations Neck: Supple, No JVD, Negative Carotid Bruits, Thyroid Normal Size and Texture, - - Tracheostomy tube in place. Lungs: Clear to auscultation, No wheeze, No rales, Diminished, Rhonchi Cardiovascular: Regular rate, Regular Rhythm, Normal S1, Normal S2, PMI Normal Abdomen: Bowel Sounds Present, Soft, Non Tender, Non-Distended, No Hepato-splenomegaly, Obese Extremities: No clubbing, No cyanosis, No edema, Clubbing Skin: No breakdown Lymphatic: No Cervical, Supraclavicular, or Inguinal Adenopathy Neurological: Cranial nerves II-XII grossly intact, Neuro grossly intact Psych/Mental Status: Normal Affect, Appropriate, Alert and oriented to time, place, person, mood and affect Vital Signs Temp Pulse Resp BP Pulse Ox 98.5 F 74 16 129/51 H 96 08/05/17 03:00 08/05/17 07:00 08/05/17 03:00 08/05/17 03:00 08/05/17 03:00 Oxygen Flow Rate (L/min) 7 Oxygen Delivery Method Nasal Cannula Weight: 306 lb 7.08 oz Body Mass Index (BMI) 42.7 Intake and Output for Last 24 Hours 08/03/17 08/04/17 08/05/17 23:59 23:59 23:59 Intake Total 1310 / 1311950.1950.1 778 / 778 Balance 1310. 778 / 778 Microbiology Past 72 Hours 08/03/17 12:05 Streptococcus pneumoniae Antigen (M - Final Urine, Clean Catch 08/03/17 12:05 Legionella Antigen - Final Urine, Clean Catch Laboratory Tests Past 24 Hrs 08/05/17 06:20 WBC 10.9 RBC 4.04 L Hgb 11.3 L Hct 35.2 L MCV 87.1 MCH 28.0 MCHC 32.1 RDW 12.5 RDW Differential 40.5 Plt Count 290 MPV 10.4 Immature Gran % (Auto) 0.100 Neut % (Auto) 79.5 H Lymph % (Auto) 10.0 L [place] % (Auto) 8.8 Eos % (Auto) 1.5 Baso % (Auto) 0.1 Absolute Neuts (auto) 8.7 H Absolute Lymphs (auto) 1.09 Total Counted Not Reportable POC Glucose 08/05/17 08/04/17 08/04/17 06:45 21:10 16:56 POC Glucose 80 102 74 08/04/17 11:12 POC Glucose 179 H Medical Necessity - Tobacco Use Smoking Status: Former smoker Tobacco Use: Non-smoker Assessment/Plan All Active Problems COPD exacerbation (Acute) Hypoxemia (Acute) Acute hypercapnic respiratory failure (Acute) Shortness of breath (Acute) COPD with acute exacerbation (Acute) This is a 62 years old male patient presented to the emergency room because of worsening shortness of breath with productive cough, found to have significant leukocytosis and his chest x-ray revealed blunting of the left costophrenic angle with concern of underlying infiltrate, was admitted as a case of suspected community-acquired pneumonia and probable acute COPD exacerbation. #1 suspected community acquired pneumonia: He is on IV Zosyn. Vital signs are stable, has been afebrile, white blood cell count is back to normal. Pneumococcal and Legionella antigen negative. Blood culture showed no growth in 48 hours. Sputum culture revealed gram-negative rods, final is pending. Urine cultures pending. Plan to continue same treatment, awaiting final sputum culture, possible DC home later today. #2 probable acute COPD exacerbation: He is on bronchodilators and antibiotics. At home, he is on oxygen through the trach collar at 7 L. At this time, he is maintaining his pulse ox at the same oxygen supply. Plan to continue same treatment. #3 chronic hypoxic respiratory failure: Secondary to COPD and pulmonary hypertension as well as history of laryngeal cancer status post surgery and tracheostomy. At home, he has been on 7 L #4 type 2 diabetes mellitus: Blood sugar stable, continue glipizide, metformin, Tradjenta, Lantus and sliding scale. #5 hypertension: Blood pressure stable, continue Lasix, lisinopril, Zaroxolyn and Aldactone. #6 history of laryngeal cancer: Status post surgery and tracheostomy #7 hypothyroidism: Continue levothyroxine. #8 stage III chronic kidney disease: Baseline creatinine is around 1.3-1.5 mg/dL. yesterday's creatinine is 1.44, stable at baseline. #9 pulmonary hypertension: Continue diuretics including Lasix, Zaroxolyn Aldactone. #10 DVT prophylaxis: Subcu heparin. This note was generated with [email or web address] dictation software. It may contain incorrect words, spelling, and punctuation that were not noted in checking the note before signing.
[2017-08-05] MEDS: Aspirin 81 MG TAB.CHEW PO (08:49)
[2017-08-05] MEDS: glipiZIDE 10 MG Tablet PO (08:49)
[2017-08-05] MEDS: metFORMIN HCl 1,000 MG Tablet 1000 MG PO (08:49)
[2017-08-05] MEDS: Spironolactone 25 MG Tablet PO (08:49)
[2017-08-05] MEDS: LINAGLIPTIN 5 MG TABLET PO (08:50)
[2017-08-05] MEDS: Furosemide 40 MG Tablet PO (08:50)
[2017-08-05] MEDS: Lisinopril 40 MG Tablet PO (08:51)
[2017-08-05] MEDS: Metolazone 2.5 MG Tablet PO (08:51)
[2017-08-05 09:00] VITALS: BP 113/67; PULSE 83; RESP 18; TEMP 36.8; O2SAT 95
--- NOTE | 2017-08-05 10:54 | DCINST_ITS ---
- Discharge Diagnoses Current Active Problems: Current Active and Chronic Problems COPD exacerbation (Acute) Hypoxemia (Acute) You will use the following diet at home:: Calorie/Carbohydrate Controlled ( specify 1200, 1400, etc) - 1800 freya., Cardiac Your food should be the consistency of: Regular Discharge Activity: Return to Normal Activity Weight Bearing Status: Weight bearing as tolerated Call your doctor if you observe: Fever of 101 or Higher, Shortness of breath, Dizziness, Fainting spells, Chest pain, Increased palpitations (irregular heartbeat), Uncontrolled pain Allergies/Adverse Reactions: Allergies No Known Allergies Allergy (Verified 08/03/17 00:00) Medications to take at Discharge Aspirin 81 mg PO DAILY@0800 06/04/14 Furosemide [Lasix] 40 mg PO BIDLX 06/04/14 Levothyroxine [Synthroid] 150 mcg PO DAILY 06/04/14 Spironolactone [Aldactone] 25 mg PO BID 06/04/14 glipiZIDE [Glucotrol] 10 mg PO BIDAC 06/04/14 Insulin Aspart [Novolog Vial] See Protocol SQ TIDCM 06/25/14 Cyanocobalamin (Vitamin B-12) [B-12] 1,000 mcg PO DAILY 09/08/14 Lisinopril [Zestril] 40 mg PO BID 12/06/14 Sitagliptin Phosphate [Januvia] 100 mg PO DAILY 05/29/16 Atorvastatin Calcium [Lipitor] 40 mg PO QHS 04/12/17 Glucosamine HCl 500 mg PO DAILY 04/12/17 Insulin Detemir [Levemir FlexPen] 35 units SC BID 04/12/17 Ipratropium/Albuterol Sulfate [Duoneb] 3 ml INHALATION Q6H PRN 04/12/17 Metformin HCl 1,000 mg PO BID 04/12/17 Metolazone [Zaroxolyn] 2.5 mg PO DAILY 04/12/17 Cyanocobalamin (Vitamin B-12) [Vitamin B-12] 1,000 mcg PO 08/03/17 Ciprofloxacin [Cipro] 500 mg PO BID #14 tab 08/05/17 The following prescriptions were given: Ciprofloxacin [Cipro] 500 mg PO BID #14 tab Primary Care Physician: Chinmay Sin MD [Primary Care Provider] - Please follow up with your Primary Care Physician in: 1
--- NOTE | 2017-08-05 14:28 | PCM.DC.SUM ---
Discharge Date and Diagnosis Date of Admission: 08/03/17 Date of Discharge: 08/05/17 - Primary Discharge Diagnosis #1 suspected Proteus mirabilis community-acquired pneumonia. #2 mild acute COPD exacerbation. 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 Had his thyroid out at the same time. No chemo or radiation were given. tracheostomy (Chronic) 2006 History of diastolic dysfunction (Chronic) EF 55% with abnoraml relaxation on 06/05/14 Morbid obesity with BMI of 45.0-49.9, adult (Chronic) Gout (Chronic) Colon polyps (Chronic) COPD (chronic obstructive pulmonary disease) (Chronic) History of laryngeal cancer (Chronic) Hospital Course and Treatment Imaging Results: Clinical Impression(s) from Imaging Studies Chest X-Ray 08/03/17 00:22 IMPRESSION: Mild cardiomegaly. No acute findings in the lungs Electronically Signed: Benito Winter at 1:20 EDT Tel , Service support , Chest X-Ray 08/04/17 04:00 IMPRESSION: Left basilar atelectasis. Electronically Signed: Shad Hernandez MD at 3:27 EDT Tel , Service support , Operations: None Procedures: None Summary of Care Provided: The patient is a 62 year old M admitted because of worsening shortness of breath, productive cough, found to have significant leukocytosis and had a spike of fever this hospital stay and she was found to have blunting of the left costophrenic angle on chest x-ray with concern of underlying infiltrate and he was treated as a case of community-acquired pneumonia. 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 Upon admission, patient had a fever, significant leukocytosis without recent use of steroids. He was treated with IV Zosyn for probable gram-negative pneumonia because of history of pseudomonas aeruginosa colonization. Pneumococcal and Legionella antigen were negative. Urine culture showed no growth. Blood cultures are no growth in 48 hours. Sputum culture revealed Proteus mirabilis and gram-negative rods, final was pending at the time of discharge. With IV antibiotic therapy and bronchodilators, patient symptoms improved and he remained on his baseline of oxygen through the trach collar which is 7 L. He remained afebrile for more than 48 hours and his white blood cell count is back to normal. Previous sputum culture from the previous admissions reviewed and revealed that he has pseudomonas aeruginosa colonization. During this hospital stay, sputum culture revealed Proteus mirabilis which was sensitive to ciprofloxacin and Zosyn. Patient discharged home in a stable medical condition, discharged on ciprofloxacin 500 mg p.o. twice daily for 7 days, continued on his home medication without any changes, recommended follow-up with PCP in 1 week. Discharge Activity: Return to Normal Activity Weight Bearing Status: Weight bearing as tolerated Call your doctor if you observe: Fever of 101 or Higher, Shortness of breath, Dizziness, Fainting spells, Chest pain, Increased palpitations (irregular heartbeat), Uncontrolled pain Home Medications: Medications to take at Discharge Aspirin 81 mg PO DAILY@0800 06/04/14 Furosemide [Lasix] 40 mg PO BIDLX 06/04/14 Levothyroxine [Synthroid] 150 mcg PO DAILY 06/04/14 Spironolactone [Aldactone] 25 mg PO BID 06/04/14 glipiZIDE [Glucotrol] 10 mg PO BIDAC 06/04/14 Insulin Aspart [Novolog Vial] See Protocol SQ TIDCM 06/25/14 Cyanocobalamin (Vitamin B-12) [B-12] 1,000 mcg PO DAILY 09/08/14 Lisinopril [Zestril] 40 mg PO BID 12/06/14 Sitagliptin Phosphate [Januvia] 100 mg PO DAILY 05/29/16 Atorvastatin Calcium [Lipitor] 40 mg PO QHS 04/12/17 Glucosamine HCl 500 mg PO DAILY 04/12/17 Insulin Detemir [Levemir FlexPen] 35 units SC BID 04/12/17 Ipratropium/Albuterol Sulfate [Duoneb] 3 ml INHALATION Q6H PRN 04/12/17 Metformin HCl 1,000 mg PO BID 04/12/17 Metolazone [Zaroxolyn] 2.5 mg PO DAILY 04/12/17 Cyanocobalamin (Vitamin B-12) [Vitamin B-12] 1,000 mcg PO 08/03/17 Ciprofloxacin [Cipro] 500 mg PO BID #14 tab 08/05/17 Following Prescrptions Were Given to Patient: Ciprofloxacin [Cipro] 500 mg PO BID #14 tab Primary Care Physician: Chinmay Sin MD [Primary Care Provider] - Please follow up with your Primary Care Physician in: 1 weeek. Disposition: Home Minutes spent on discharge:: 32 Patient Condition:: Stable Medical Necessity - Tobacco Use Smoking Status: Former smoker Tobacco Use: Non-smoker Meaningful Use Info Meaningful Use Diagnoses (Choose all that apply): None applicable Code Visit Inpatient E&M: 49805 Disch Hosp
--- NOTE | 2017-08-05 14:33 | DS.PCM_ITS ---
Discharge Date and Diagnosis Date of Admission: 08/03/17 Date of Discharge: 08/05/17 - Primary Discharge Diagnosis #1 suspected Proteus mirabilis community-acquired pneumonia. #2 mild acute COPD exacerbation. 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 Had his thyroid out at the same time. No chemo or radiation were given. tracheostomy (Chronic) 2006 History of diastolic dysfunction (Chronic) EF 55% with abnoraml relaxation on 06/05/14 Morbid obesity with BMI of 45.0-49.9, adult (Chronic) Gout (Chronic) Colon polyps (Chronic) COPD (chronic obstructive pulmonary disease) (Chronic) History of laryngeal cancer (Chronic) Hospital Course and Treatment Imaging Results: Clinical Impression(s) from Imaging Studies Chest X-Ray 08/03/17 00:22 IMPRESSION: Mild cardiomegaly. No acute findings in the lungs Electronically Signed: Benito Winter at 1:20 EDT Tel , Service support , Chest X-Ray 08/04/17 04:00 IMPRESSION: Left basilar atelectasis. Electronically Signed: Shad Hernandez MD at 3:27 EDT Tel , Service support , Operations: None Procedures: None Summary of Care Provided: The patient is a 62 year old M admitted because of worsening shortness of breath , productive cough, found to have significant leukocytosis and had a spike of fever this hospital stay and she was found to have blunting of the left costophrenic angle on chest x-ray with concern of underlying infiltrate and he was treated as a case of community-acquired pneumonia. 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 Upon admission, patient had a fever, significant leukocytosis without recent use of steroids. He was treated with IV Zosyn for probable gram-negative pneumonia because of history of pseudomonas aeruginosa colonization. Pneumococcal and Legionella antigen were negative. Urine culture showed no growth. Blood cultures are no growth in 48 hours. Sputum culture revealed Proteus mirabilis and gram-negative rods, final was pending at the time of discharge. With IV antibiotic therapy and bronchodilators, patient symptoms improved and he remained on his baseline of oxygen through the trach collar which is 7 L. He remained afebrile for more than 48 hours and his white blood cell count is back to normal. Previous sputum culture from the previous admissions reviewed and revealed that he has pseudomonas aeruginosa colonization. During this hospital stay, sputum culture revealed Proteus mirabilis which was sensitive to ciprofloxacin and Zosyn. Patient discharged home in a stable medical condition, discharged on ciprofloxacin 500 mg p.o. twice daily for 7 days, continued on his home medication without any changes, recommended follow-up with PCP in 1 week. Discharge Activity: Return to Normal Activity Weight Bearing Status: Weight bearing as tolerated Call your doctor if you observe: Fever of 101 or Higher, Shortness of breath, Dizziness, Fainting spells, Chest pain, Increased palpitations (irregular heartbeat), Uncontrolled pain Home Medications: Medications to take at Discharge Aspirin 81 mg PO DAILY@0800 06/04/14 Furosemide [Lasix] 40 mg PO BIDLX 06/04/14 Levothyroxine [Synthroid] 150 mcg PO DAILY 06/04/14 Spironolactone [Aldactone] 25 mg PO BID 06/04/14 glipiZIDE [Glucotrol] 10 mg PO BIDAC 06/04/14 Insulin Aspart [Novolog Vial] See Protocol SQ TIDCM 06/25/14 Cyanocobalamin (Vitamin B-12) [B-12] 1,000 mcg PO DAILY 09/08/14 Lisinopril [Zestril] 40 mg PO BID 12/06/14 Sitagliptin Phosphate [Januvia] 100 mg PO DAILY 05/29/16 Atorvastatin Calcium [Lipitor] 40 mg PO QHS 04/12/17 Glucosamine HCl 500 mg PO DAILY 04/12/17 Insulin Detemir [Levemir FlexPen] 35 units SC BID 04/12/17 Ipratropium/Albuterol Sulfate [Duoneb] 3 ml INHALATION Q6H PRN 04/12/17 Metformin HCl 1,000 mg PO BID 04/12/17 Metolazone [Zaroxolyn] 2.5 mg PO DAILY 04/12/17 Cyanocobalamin (Vitamin B-12) [Vitamin B-12] 1,000 mcg PO 08/03/17 Ciprofloxacin [Cipro] 500 mg PO BID #14 tab 08/05/17 Following Prescrptions Were Given to Patient: Ciprofloxacin [Cipro] 500 mg PO BID #14 tab Primary Care Physician: Chinmay Sin MD [Primary Care Provider] - Please follow up with your Primary Care Physician in: 1 weeek. Disposition: Home Minutes spent on discharge:: 32 Patient Condition:: Stable Medical Necessity - Tobacco Use Smoking Status: Former smoker Tobacco Use: Non-smoker Meaningful Use Info Meaningful Use Diagnoses (Choose all that apply): None applicable Code Visit Inpatient E&M: 25738 Disch Hosp
--- NOTE | 2017-08-06 16:09 | CASEMGMT ---
ANUSHA EDGAR Discharge Follow-up Phone Call: CAROLTish: Travon Strata: 4 Call Date:08/06/17 Discharge Date: 08/05/17 Time of Call: 1610 Duration: 3 min Admitting Diagnosis: Comm. Acq. Pneumonia, Acute on Chronic Resp Failure ANUSHA EDGAR completed follow-up phone call after recent hospitalization. Patient states that he is doing well and has no questions regarding discharge instructions or medication. 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 Patient states that his PCP has already been in contact with him for follow-up appt.
== END 2017-08-05 11:50 | disposition home or self-care (01) | DRG 177 ==
LOC: ED 08-03 02:05 → PCU 08-03 02:16
PROVIDERS: Admitting Provider Internal Medicine; Emergency Provider Emergency Medicine; Family Provider Family Medicine; PCP Family Medicine; Visit Provider Hospitalist
DX: J15.6 Pneumonia due to other Gram-negative bacteria (principal); J96.21 Acute and chronic respiratory failure with hypoxia; J44.1 Chronic obstructive pulmonary disease with (acute) exacerbation; Z68.41 Body mass index [BMI] 40.0-44.9, adult; J44.0 Chronic obstructive pulmonary disease with (acute) lower respiratory infection; Z93.0 Tracheostomy status; Z85.21 Personal history of malignant neoplasm of larynx; E03.9 Hypothyroidism, unspecified; Z87.891 Personal history of nicotine dependence; N18.3 Chronic kidney disease, stage 3 (moderate); E11.22 Type 2 diabetes mellitus with diabetic chronic kidney disease; Z99.81 Dependence on supplemental oxygen; E66.01 Morbid (severe) obesity due to excess calories; Z79.4 Long term (current) use of insulin; I27.20 Pulmonary hypertension, unspecified; I25.10 Atherosclerotic heart disease of native coronary artery without angina pectoris; E78.5 Hyperlipidemia, unspecified; I12.9 Hypertensive chronic kidney disease with stage 1 through stage 4 chronic kidney disease, or unspecified chronic kidney disease
CPT/HCPCS: 31720; 36415; 71045; 80048; 80053; 81001; 82962; 83605; 84484; 85025; 85610; 85730; 87040; 87070; 87077; 87086; 87186; 87205; 87449; 93005; 94640; 97110; 97116; 97162; 97166; 97802; 99283; J7030; A4216

== ENCOUNTER 2017-12-04 17:27 | Emergency (ER) | payer MEDICARE, SELFPAY ==
[2017-12-04 17:29] VITALS: BP 139/72; PULSE 54; RESP 18; TEMP 36.7; O2SAT 96; BMI 42.0
--- NOTE | 2017-12-04 18:31 | CT_ITS ---
STUDY: CT ABDOMEN AND PELVIS WITHOUT CONTRAST REASON FOR EXAM: Male, 62 years old. Abdominal pain. RADIATION DOSAGE (If Supplied By Facility): CTDIvol = ( 28.71 ) mGy, DLP = ( 1263.98 ) mGycm TECHNIQUE: Transaxial images were obtained from the dome of the diaphragm to the symphysis pubis without oral contrast, and with intravenous contrast. Sagittal and coronal images were reconstructed. Individualized dose optimization techniques were used for this CT. COMPARISON: May 09, 2015 FINDINGS: The visualized lung bases are unremarkable. There are coronary artery calcifications present. Normal liver. Normal gallbladder and extrahepatic biliary system. Normal spleen. Normal pancreas. There are stable fat-containing adrenal masses with an appearance most consistent with myelolipomas. Normal right kidney. There is stable parenchymal thinning of the left kidney. Normal visualized stomach. Normal small intestine. There are diverticula scattered throughout the colon. There is mild stranding adjacent to the colon at the descending/sigmoid colon junction. The appendix is surgically absent. There is diffuse atherosclerotic calcification of the abdominal aorta, without a demonstrated aneurysm. Normal inferior vena cava. There is stable prominent fat within the right retroperitoneum may be secondary to underlying lipomatosis. Normal urinary bladder. There are postsurgical changes along the anterior abdominal wall. There are diffuse degenerative changes of the visualized lumbar spine. There is a stable grade 1 anterior spondylolisthesis of L4 on L5 secondary to bilateral L4 pars defects. There is a stable sclerotic focus within the L4 vertebra. CT/Abdomen/Pelvis W IV Cont ONLY IMPRESSION: Findings may reflect mild colonic diverticulitis at the sigmoid/descending colon junction. Atherosclerosis. Stable adrenal myelolipomas. Electronically Signed: Maddy Ndiaye MD at 19:46 EDT Tel , Service support ,
[2017-12-04] MEDS: 0.9% Normal Saline 1,000 ML 125 ML IV (18:34)
[2017-12-04 18:49] LABS: Absolute Lymphocyte Count 1.35 X10^3/ul (0.83-4.51); Absolute Neutrophil Count 7.7 X10^3/uL (2.0-7.7); Basophil# 0.02 X10^3/uL; Basophil% 0.2 % (0-1); Eosinophil# 0.09 X10^3/uL; Eosinophils% 0.9 % (0-5); Hematocrit 36.4 % (40-54); Hemoglobin 11.9 g/dl (13.0-16.5); Lymphocyte # 1.35 X10^3/ul (4.0); Lymphocyte % 13.4 % (19-41); Mean Corp Hgb Conc 32.7 g/gl (32-36); Mean Corpuscular Hgb 27.9 pg (27.0-32.0); Mean Corpuscular Volume 85.4 fL (80-94); Mean Platelet Vol. 10.5 fl (6.2-12.0); Monocyte# 0.88 X10^3/uL; Monocyte% 8.7 % (0-10); Neutrophil # 7.74 X10^3/uL (2.7-7.7); Neutrophil % 76.7 % (47-70); POSITIVE COUNT NO; POSITIVE DIFFERENTIAL NO; POSITIVE MORPHOLOGY NO; Platelet Count 259 K/mm3 (150-450); RBC Distribution Width CV 13.1 % (11.6-14.6); RBC Distribution Width SD 40.8 fl (35.1-43.9); Red Blood Count 4.26 M/mm3 (4.6-6.2); White Blood Count 10.1 K/mm3 (4.4-11.0)
[2017-12-04 19:04] LABS: ALB/GLOB Ratio 0.8 RATIO (0.9-2.4); AST(SGOT) 10 U/L (15-37); Alanine Aminotransfer ALT/SGPT 16 U/L (16-61); Albumin, Serum 3.1 g/dL (3.2-5.0); Alkaline Phosphatase 81 U/L (45-117); BUN 23 mg/dL (7-18); BUN/Creat Ratio 17.4 RATIO (10-20); Calcium,Total 8.4 mg/dL (8.5-10.1); Chloride 100 mmol/L (98-107); Creatinine, Serum 1.32 mg/dL (0.70-1.30); EST Glomerular Filtration Rate 58 mL/min (>60); Est Glom Filt Rate - Afr Amer 71 mL/min (>60); Glucose 98 mg/dL (74-106); Lipase 67 U/L (73-393); Potassium 4.2 mmol/L (3.5-5.1); Protein, Total 7.1 g/dL (6.4-8.2); Sodium Level 137 mmol/L (136-145)
[2017-12-04 19:05] LABS: Anion Gap 9 (5-15)
[2017-12-04 20:23] LABS: Bacteria 0 SEEN /hpf (None Seen); Mucous, Urine 0 SEEN /hpf (<or=2+); Red Blood Cells-Urine 0 SEEN /hpf (0-5); White Blood Cells 0 SEEN /hpf (0-5)
[2017-12-04 20:26] LABS: Color, Urine Yellow (Yellow); Glucose, Dipstick Normal (Normal); Ketone-Dipstick Negative (Negative); Leukocyte Esterase-Dipstick Negative /ul (Negative); Nitrite-Dipstick Negative (Negative); Occult Blood-Urine Negative /ul (Negative); Protein-Dipstick 30 mg/dl (Negative); Urine Bilirubin Dipstick Negative (Negative); Urine Clarity Clear (Clear); Urine Urobilinogen Normal (Normal)
[2017-12-04 20:43] LABS: Squamous Epithelial Cells - UA 0-5 SEEN /hpf (0-5)
--- NOTE | 2017-12-04 21:08 | ED.VISSUMM ---
- ER Visit Summary Date of Service: 12/04/17 Chief Complaint: Abdominal pain History of Present Illness: The patient is a 62 M who states that for the past week he has not had a significant bowel movement. He states he is developed sharp pains on the left lower abdomen. He denies any fever. He notes that in the past he was told one time he had diverticulitis but then had a colonoscopy told everything looked fine. He is a diabetic with a history of hypertension high cholesterol obesity hypothyroidism and COPD. He has been on Augmentin for sinus infection. Physical Examination: Afebrile vital signs stable Gen: Well-nourished well-developed Head: Normocephalic atraumatic Eyes: Perrl EOMI ENT: TMs clear no rhinorrhea moist mucous membranes tracheostomy site present Neck: Supple no lymphadenopathy no JVD nontender CVS: Regular rate rhythm no murmurs normal S1-S2 Respiratory: No distress clear to auscultation bilaterally chest nontender Abdomen: Soft tender palpation without guarding or rebound left lower quadrant nondistended normal bowel sounds no masses Back: Nontender Extremity: Nontender no edema Skin: Normal color no rash Neuro: alert orientated ?3 CN II-XII intact normal strength sensation reflexes gait cerebellar Psych: Normal affect normal mood Test Results: White count is normal. Urinalysis normal. CT abdomen pelvis demonstrates some sigmoid diverticulitis without perforation or abscess formation Emergency Department Course and Treatment: Most likely the Augmentin he has been taking has been keeping his diverticulitis and check. Going to start him on Cipro Flagyl as well as a few Tilly. He was encouraged to drink apple juice and take stool softener. He should follow-up with his doctor in the week. Return if worsening or concerns Impression: 1. Acute sigmoid diverticulitis This note was generated with [employer] dictation software. It may contain incorrect words, spelling, and punctuation that were not noted in review of the chart prior to signing ED Disposition - Plan for ED Patient: Disposition: Home or Assisted Living Chief Complaint: Abd Pain Instructions: ED Diverticulitis Prescriptions: proMETHazine tablet [Phenergan] 25 mg PO Q6H PRN PRN #10 tab PRN Reason: Nausea Metronidazole [Flagyl] 500 mg PO Q8H #30 tab Ciprofloxacin [Cipro] 500 mg PO BID #20 tab Referrals: Chinmay Sin MD [Primary Care Provider] - 1 Week
[2017-12-04] MEDS: Ciprofloxacin 500 MG Tablet PO (21:37)
[2017-12-04] MEDS: metroNIDAZOLE 500 MG Tablet PO (21:37)
[2017-12-04 21:55] VITALS: BP 154/72; PULSE 64; RESP 20; O2SAT 95
== END 2017-12-04 21:56 | disposition home or self-care (01) ==
PROVIDERS: Emergency Provider Emergency Medicine; Family Provider Family Medicine; PCP Family Medicine
DX: K57.32 Diverticulitis of large intestine without perforation or abscess without bleeding (principal); I10 Essential (primary) hypertension; E11.9 Type 2 diabetes mellitus without complications; E78.00 Pure hypercholesterolemia, unspecified; E03.9 Hypothyroidism, unspecified; J44.9 Chronic obstructive pulmonary disease, unspecified; J32.9 Chronic sinusitis, unspecified; K59.00 Constipation, unspecified; E66.9 Obesity, unspecified; Z93.0 Tracheostomy status; Z87.891 Personal history of nicotine dependence
CPT/HCPCS: 74177; 80053; 81001; 83690; 85025; 99285; J7030; Q9967

== ENCOUNTER 2018-08-04 16:33 | Inpatient (IN) | payer MEDICARE, SELFPAY ==
[2018-07-23 15:31] VITALS: BMI 44.4
[2018-08-04 16:33] VITALS: BP 95/49; PULSE 92; RESP 17; TEMP 36.8; O2SAT 94; BMI 43.2
--- NOTE | 2018-08-04 16:51 | EKG12_ITS ---
Test Reason : CP Blood Pressure : / mmHG Vent. Rate : 080 BPM Atrial Rate : 080 BPM P-R Int : 196 ms QRS Dur : 082 ms QT Int : 360 ms P-R-T Axes : 053 029 122 degrees QTc Int : 415 ms Normal sinus rhythm Low voltage QRS T wave abnormality, consider lateral ischemia Abnormal ECG Confirmed by BALTAZAR CHENG, ALEXANDER ([id number]), assistant film editor MISAEL OSHEA ([id number]) on 08/05/2018 1:10:13 PM Referred By: GAGE Confirmed By:ALEXANDER LEDESMA MD
--- NOTE | 2018-08-04 16:52 | RAD_ITS ---
STUDY: X-RAY CHEST REASON FOR EXAM: Male, 63 years old. Shortness of breath TECHNIQUE: AP COMPARISON: Earlier today FINDINGS: Left basilar atelectasis is similar since the prior study. There is no demonstrated pleural abnormality. There is mild cardiac enlargement. Normal mediastinum and laura. Normal visualized pulmonary arteries. There is atherosclerotic calcification of the aortic arch with tortuosity. No acute bony process. There is no demonstrated abnormality of the visualized soft tissue structures of the upper abdomen. RAD/Chest 1 View (Portable) IMPRESSION: Stable short term follow-up. Left basilar atelectasis. Electronically Signed: Lauri Hartman MD at 17:08 EDT , Service support ,
[2018-08-04] MEDS: Ipratropium/Albuterol Sulfate 3 ML AMPUL.NEB INHALATION ×2 (16:59→22:36)
[2018-08-04 17:00] VITALS: PULSE 78; RESP 17
[2018-08-04 17:05] LABS: Absolute Lymphocyte Count 1.01 X10^3/ul (0.83-4.51); Absolute Neutrophil Count 7.4 X10^3/uL (2.0-7.7); Basophil# 0.02 X10^3/uL; Basophil% 0.2 % (0-1); Eosinophil# 0.35 X10^3/uL; Eosinophils% 3.7 % (0-5); Hematocrit 35.4 % (40-54); Lymphocyte # 1.01 X10^3/ul (4.0); Lymphocyte % 10.6 % (19-41); Mean Corp Hgb Conc 33.9 g/gl (32-36); Mean Corpuscular Hgb 28.4 pg (27.0-32.0); Mean Corpuscular Volume 83.9 fL (80-94); Monocyte# 0.71 X10^3/uL; Monocyte% 7.5 % (0-10); Neutrophil # 7.39 X10^3/uL (2.7-7.7); Neutrophil % 77.8 % (47-70); POSITIVE COUNT NO; POSITIVE DIFFERENTIAL NO; POSITIVE MORPHOLOGY NO; Platelet Count 350 K/mm3 (150-450); RBC Distribution Width CV 12.6 % (11.6-14.6); RBC Distribution Width SD 38.1 fl (35.1-43.9); Red Blood Count 4.22 M/mm3 (4.6-6.2); White Blood Count 9.5 K/mm3 (4.4-11.0)
[2018-08-04] MEDS: 0.9% Normal Saline 1,000 ML 1000 ML IV (17:09)
[2018-08-04] MEDS: Ondansetron 4 MG/2 ML Vial IV (17:09)
[2018-08-04 17:11] VITALS: O2SAT 92
[2018-08-04 17:21] LABS: ALB/GLOB Ratio 0.8 RATIO (0.9-2.4); AST(SGOT) 10 U/L (15-37); Alanine Aminotransfer ALT/SGPT 12 U/L (16-61); Albumin, Serum 3.4 g/dL (3.2-5.0); Alkaline Phosphatase 99 U/L (45-117); Anion Gap 9 (5-15); BUN 64 mg/dL (7-18); BUN/Creat Ratio 13.5 RATIO (10-20); Calcium,Total 8.5 mg/dL (8.5-10.1); Chloride 108 mmol/L (98-107); Creatinine, Serum 4.74 mg/dL (0.70-1.30); EST Glomerular Filtration Rate 13 mL/min (>60); Est Glom Filt Rate - Afr Amer 16 mL/min (>60); Estimated Creatinine Clearance 16.99 ml/min; Glucose 194 mg/dL (74-106); Lipase 87 U/L (73-393); Protein, Total 7.4 g/dL (6.4-8.2); Sodium Level 133 mmol/L (136-145)
--- NOTE | 2018-08-04 17:43 | ED.VISSUMM ---
- ER Visit Summary Date of Service: 08/04/18 Chief Complaint: [Vomiting and diarrhea and shortness of breath/generalized weakness] History of Present Illness: The patient is a 63 M [presents the emergency department symptoms for over 2 days. Patient states that he has had frequent vomiting and diarrhea and cannot keep anything down. Patient had decreased p.o. intake. He has had increased weakness. Patient also feels more short of breath than usual. He does have a history of COPD and history of diabetes, hypertension, high cholesterol, and hypothyroidism. Patient has had prior laryngectomy and thyroidectomy as well. Patient states that he has been having 6-7 watery stools per day. He denies any blood in the stool. He denies sick contacts. Denies antibiotic usage.] Patient has had a slight cough and some mild increase in sputum production. Physical Examination: [HEENT-PERRLA, EOMI. Cranial nerves II through XII grossly intact. TMs clear. Mucous membranes moist. No adenopathy. Cardiovascular-regular rate and rhythm without murmur or ectopy Lungs-good aeration bilaterally. Patient has some pain expiratory wheezes noted. No accessory muscle use or retractions. Abdomen-normoactive bowel sounds, soft. Mild diffuse tenderness on palpation. There is no rebound, rigidity, arterial signs. Extremities-intact ?4, normal range of motion, normal pulses, atraumatic] Test Results: [EKG obtained arrival shows sinus rhythm with a ventricular rate of 80 bpm with some nonspecific ST changes. CBC with differential showed a white count of 9.5, hemoglobin 12, hematocrit 35, platelets 350. Chemistries significant for sodium 133, potassium 5.0, chloride 108, CO2 16, BUN 64, creatinine 4.74, glucose 194. Troponin is less than 0.015. Chest x-ray showed some left basilar atelectasis otherwise nothing acute.] Emergency Department Course and Treatment: [He was ordered a liter normal same fluid bolus as well as Zofran IV. Patient was given a DuoNeb aerosol.] Stool was ordered for enteric pathogens. Treatment Plan: [Admit for IV hydration] Disposition: [Admit] Impression: [Acute kidney injury Dehydration Hypotension Gastroenteritis-suspect viral] This note was generated with Pen[employer] dictation software. It may contain incorrect words, spelling, and punctuation that were not noted in review of the chart prior to signing ED Disposition - Plan for ED Patient: Referrals: Chinmay Sin MD [Primary Care Provider] -
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
[2018-08-04] MEDS: 0.9% Normal Saline 1,000 ML 250 ML IV (18:21)
[2018-08-04 18:50] VITALS: BMI 43.8
[2018-08-04 18:53] VITALS: BP 115/51; PULSE 76; RESP 20; TEMP 36.4; O2SAT 98
--- NOTE | 2018-08-04 19:02 | RAD_ITS ---
STUDY: X-RAY - ABDOMEN/PELVIS REASON FOR EXAM: Male, 63 years old. Abdominal pain TECHNIQUE: AP supine and upright views of the abdomen and pelvis. COMPARISON: None. FINDINGS: Normal visualized lung bases. There is an unremarkable bowel gas pattern. There is no demonstrated free abdominal air. The visualized liver, spleen and kidneys are grossly normal in size and morphology. There are surgical wires over the midline pelvis. There is [id number] bilateral hip arthrosis. RAD/Abd Decub and/or Erect(Portabl IMPRESSION: No evidence of bowel obstruction. Electronically Signed: Isaura Barrow, at 19:54 EDT Tel , Service support ,
[2018-08-04 19:22] VITALS: O2SAT 98
[2018-08-04 20:11] LABS: Bedside Glucose 102 mg/dL (70-110)
[2018-08-04] MEDS: Atorvastatin Calcium 40 MG Tablet PO (21:19)
[2018-08-04] MEDS: 0.9% Normal Saline 1,000 ML 150 ML IV (21:19)
[2018-08-04 21:29] LABS: Red Blood Cells-Urine 0 SEEN /hpf (0-5)
[2018-08-04 21:34] LABS: Color, Urine Yellow (Yellow); Glucose, Dipstick Normal (Normal); Ketone-Dipstick 5 mg/dl (Negative); Leukocyte Esterase-Dipstick Negative /ul (Negative); Nitrite-Dipstick Negative (Negative); Occult Blood-Urine 10 /ul (Negative); Protein-Dipstick 30 mg/dl (Negative); Specific Gravity, Urine 1.025 (1.002-1.030); Urine Clarity Clear (Clear); Urine Urobilinogen Normal (Normal)
[2018-08-04 21:42] LABS: Urine Bilirubin Dipstick 1 mg/dL (Negative)
[2018-08-04 21:46] LABS: Bacteria RARE /hpf (None Seen); Squamous Epithelial Cells - UA 0-5 SEEN /hpf (0-5); White Blood Cells 5-10 SEEN /hpf (0-5)
[2018-08-04 21:48] LABS: Hyaline Cast 5-10 SEEN /lpf (0-5); Mucous, Urine RARE /hpf (<or=2+)
[2018-08-04 22:09] LABS: Urea Nitrogen, Urine 253 mg/dL (NO RANGE EST.)
[2018-08-04] MEDS: Budesonide Respules 0.5 MG/2 ML AMPUL.NEB. INHALATION (22:36)
[2018-08-04 22:40] VITALS: PULSE 88; RESP 18; O2SAT 97
[2018-08-05] VITALS (7 sets, daily range): BP systolic 102–138; BP diastolic 42–71; PULSE 66–98; RESP 16–18; TEMP 36.8–37.2; O2SAT 94–98
[2018-08-05] MEDS: 0.9% Normal Saline 1,000 ML 150 ML IV (03:16)
[2018-08-05 06:27] LABS: Anion Gap 7 (5-15); BUN 64 mg/dL (7-18); Calcium,Total 8.3 mg/dL (8.5-10.1); Chloride 111 mmol/L (98-107); Creatinine, Serum 4.26 mg/dL (0.70-1.30); EST Glomerular Filtration Rate 15 mL/min (>60); Est Glom Filt Rate - Afr Amer 18 mL/min (>60); Glucose 99 mg/dL (74-106); Potassium 5.1 mmol/L (3.5-5.1); Sodium Level 133 mmol/L (136-145)
[2018-08-05 06:30] LABS: Bedside Glucose 97 mg/dL (70-110)
[2018-08-05] MEDS: Ipratropium/Albuterol Sulfate 3 ML AMPUL.NEB INHALATION ×3 (06:38→19:16)
--- NOTE | 2018-08-05 06:50 | CPS ---
Patient has a Tracoe Size 10, OD 14.5, Length 115 mm. No inner cannula and uncuffed.
--- NOTE | 2018-08-05 09:05 | PCM.PN.HOSP ---
Patient Problems: Active and Suspected Problems (Last Reviewed 08/04/18 @ 18:06 by Jerry Barfield DO) ALEJANDRA (acute kidney injury) (Acute) Gastroenteritis (Acute) Vitals/I&O's: Vital Signs Temp Pulse Resp BP Pulse Ox 98.2 F 81 18 102/61 96 08/05/18 07:30 08/05/18 07:30 08/05/18 07:30 08/05/18 07:30 08/05/18 07:30 Oxygen Delivery Method Room Air Weight: 314 lb 2.539 oz Body Mass Index (BMI) 43.8 Intake and Output for Last 24 Hours 08/03/18 08/04/18 08/05/18 23:59 23:59 23:59 Intake Total 1506 / 1506 Balance 1506 / 1506 Laboratory Results 08/04/18 16:45: WBC 9.5, RBC 4.22 L, Hgb 12.0 L, Hct 35.4 L, MCV 83.9, MCH 28.4, MCHC 33.9, RDW 12.6, RDW Differential 38.1, Plt Count 350, MPV 10.0, Immature Gran % (Auto) 0.200, Neut % (Auto) 77.8 H, Lymph % (Auto) 10.6 L, [place] % (Auto) 7.5, Eos % (Auto) 3.7, Baso % (Auto) 0.2, Absolute Neuts (auto) 7.4, Absolute Lymphs (auto) 1.01, Total Counted Not Reportable 08/04/18 16:45: Sodium 133 L, Potassium 5.0, Chloride 108 H, Carbon Dioxide 16.0 L, Anion Gap 9, BUN 64 H, Creatinine 4.74 H, Estim Creat Clear Calc 16.99, Est GFR (MDRD) Af Amer 16 L, Est GFR (MDRD) Non-Af 13 L, BUN/Creatinine Ratio 13.5, Glucose 194 H, Calcium 8.5, Total Bilirubin 0.40, AST 10 L, ALT 12 L, Alkaline Phosphatase 99, Troponin I < 0.015, Total Protein 7.4, Albumin 3.4, Globulin 4.0, Albumin/Globulin Ratio 0.8 L, Lipase 87 08/04/18 20:03: POC Glucose 102 08/04/18 20:07: Urine Creatinine 335.00 08/04/18 20:07: Urine Urea Nitrogen 253 08/04/18 20:07: Urine Color Yellow, Urine Clarity Clear, Urine pH 5.0, Ur Specific [place] 1.025, Urine Protein 30 H, Urine Glucose (UA) Normal, Urine Ketones 5 H, Urine Occult Blood 10 H, Urine Nitrite Negative, Urine Bilirubin 1 H, Urine Urobilinogen Normal, Ur Leukocyte Esterase Negative, Urine RBC 0 SEEN, Urine WBC 5-10 SEEN, Ur Squamous Epith Cells 0-5 SEEN, Urine Bacteria RARE, Hyaline Casts 5-10 SEEN, Urine Mucus RARE 08/04/18 20:09: Eos Smear Total Cells Pending 08/05/18 05:40: Sodium 133 L, Potassium 5.1, Chloride 111 H, Carbon Dioxide 15.0 L, Anion Gap 7, BUN 64 H, Creatinine 4.26 H, Estim Creat Clear Calc 18.90, Est GFR (MDRD) Af Amer 18 L, Est GFR (MDRD) Non-Af 15 L, BUN/Creatinine Ratio 15.0, Glucose 99, Calcium 8.3 L 08/05/18 06:15: POC Glucose 97 Current Medications Acetaminophen (Tylenol) 650 mg PO Q6H PRN PRN PRN Reason: Mild Pain (1-3)/Temp > 100.7 F Albuterol Sulfate (Ventolin Aerosols) 2.5 mg INHALATION Q2H PRN PRN PRN Reason: Shortness of Breath/Wheezing Albuterol/Ipratropium (Duoneb) 3 ml INHALATION Q6H PRN PRN PRN Reason: SOB &/OR WHEEZING Last Admin: 08/05/18 06:38 Dose: 3 ml Documented by: Aspirin (Ecotrin) 81 mg PO DAILYCM [facility] [place] Atorvastatin Calcium (Lipitor) 40 mg PO QHS [facility] Last Admin: 08/04/18 21:19 Dose: 40 mg Documented by: Budesonide (Pulmicort Aerosol) 0.5 mg INHALATION BID [facility] Last Admin: 08/04/18 22:36 Dose: 0.5 mg Documented by: Dextrose (D50w Syringe) 0 gm IV X1 PRN; Protocol PRN Reason: Hypoglycemia Enoxaparin Sodium (Lovenox) 30 mg SC DAILY@1000 MARIBELL Glucagon () 1 mg IM .X1 PRN PRN Reason: Hypoglycemia Sodium Bicarbonate 100 meq/ (Dextrose) 1,100 mls @ 150 mls/hr IV .Q7H20M [facility] [place] Insulin Glargine (Lantus (Bkc)) 18 units SC QAM [facility] [place] Insulin Glargine (Lantus (Bkc)) 15 units SC QHS [facility] [place] Last Admin: 08/04/18 21:19 Dose: Not Given Documented by: Insulin Human Lispro (Humalog Kwikpen (Bkc)) 3 unit SC TIDAC [facility] [place] Last Admin: 08/05/18 06:21 Dose: Not Given Documented by: Insulin Human Lispro (Humalog Kwikpen (Bkc)) 0 unit SC TIDAC [facility] [place]; Protocol Last Admin: 08/05/18 06:21 Dose: Not Given Documented by: Levothyroxine Sodium (Synthroid) 150 mcg PO DAILY@0600 [facility] [place] Last Admin: 08/05/18 06:21 Dose: Not Given Documented by: Melatonin (Melatonin) 3 mg PO QHS PRN PRN PRN Reason: INSOMNIA Nystatin (Mycostatin) 1 applic TOPICAL BID [facility] [place] Last Admin: 08/04/18 21:21 Dose: Not Given Documented by: Ondansetron HCl (Zofran) 4 mg IV Q8H PRN PRN PRN Reason: NAUSEA/VOMITING Promethazine HCl (Phenergan Tablet) 25 mg PO Q6H PRN PRN PRN Reason: NAUSEA Sodium Chloride () 10 - 40 ml IV UD PRN PRN Reason: SALINE FLUSH Throat Lozenges (Cepacol Sore Throat Lozenge) 1 lozenge MUCOUS MEM Q2H PRN PRN PRN Reason: Sore throat or cough Medical Necessity - Tobacco Use Smoking Status: Former smoker Tobacco Use: Non-smoker Assessment/Plan All Active Problems (Last Reviewed 08/04/18 @ 18:06 by Jerry Barfield DO) ALEJANDRA (acute kidney injury) (Acute) Gastroenteritis (Acute) Acute hypercapnic respiratory failure (Resolved) CAP (community acquired pneumonia) (Resolved) COPD with acute exacerbation (Resolved) Shortness of breath (Resolved)
--- NOTE | 2018-08-05 09:14 | US_ITS ---
STUDY: RENAL ULTRASOUND - COMPLETE REASON FOR EXAM: Male, 63 years old. Acute kidney injury, CKD TECHNIQUE: Ultrasound evaluation of the kidneys was performed with real-time and static shore-scale imaging. COMPARISON: None. FINDINGS: RIGHT KIDNEY: Normal location of the right kidney, which is normal in size. The right kidney measures 12.8 cm. There is a normal cortex of the right kidney. The renal cortex measures 2.4 cm. There is no right renal mass or cyst. There are no right renal calculi. There is no right hydronephrosis. DISTAL RIGHT URETER: There is non-visualization of the distal right ureter. There is no demonstrated right ureterovesical junction calculus. LEFT KIDNEY: Normal location of the left kidney, which is normal in size. The left kidney measures 12.6 cm. There is increased echogenicity of the left renal parenchyma. The renal cortex measures 1.6 cm. There is no left renal mass or cyst. There are no left renal calculi. There is no left hydronephrosis. DISTAL LEFT URETER: There is non-visualization of the distal left ureter. There is no demonstrated left ureterovesical junction calculus. BLADDER: The urinary bladder is collapsed. US/Kidney and Bladder IMPRESSION: There is increased echogenicity of the left renal parenchyma which may represent medical renal disease. Normal right kidney. The urinary bladder is collapsed limiting evaluation. Electronically Signed: Isaura Barrow, at 13:52 EDT Tel , Service support ,
[2018-08-05 09:55] LABS: Magnesium 1.9 mg/dL (1.6-2.6); Phosphorus 4.6 mg/dL (2.5-4.9)
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
[2018-08-05 11:31] LABS: Bedside Glucose 193 mg/dL (70-110)
[2018-08-05] MEDS: Insulin Lispro 100 UNIT/ML INSULN.PEN SC ×4 (11:32→17:18)
[2018-08-05] MEDS: Enoxaparin 30 MG/0.3 ML Syringe SC (11:33)
[2018-08-05] MEDS: proMETHazine 25 MG Tablet PO (13:53)
--- NOTE | 2018-08-05 14:00 | PN_ITS ---
<Gama Cortez - Last Filed: 08/05/18 14:00> Patient Problems: Active and Suspected Problems (Last Reviewed 08/04/18 @ 18:06 by Jerry Barfield DO) ALEJANDRA (acute kidney injury) (Acute) Gastroenteritis (Acute) Metabolic acidosis (Acute) Hyponatremia (Acute) Subjective: Still some nausea this AM, but keeping down clears with no vomiting so far. No diarrhea at all this AM. No BM. No fever/chills. No dizziness/LH. No blood noted in past vomitus/stool. He has been ill for the past 4 days. - Physical Exam General: Alert, Oriented x3, Cooperative HEENT: Atraumatic, PERRLA, EOMI, Normocephalic Neck: Supple, No JVD, Negative Carotid Bruits, - - Tracheostomy Lungs: Clear to auscultation, Normal air movement Cardiovascular: Regular rate, No murmurs Abdomen: Bowel Sounds Present, Soft, Non Tender Extremities: No edema, Capillary Refill Less than 3 Seconds Skin: No rashes, No breakdown Musculoskeletal: No Tenderness to Palpation of Joints or Extremities Neurological: Cranial nerves II-XII grossly intact Psych/Mental Status: Normal Affect, Appropriate, Alert and oriented to time, place, person, mood and affect Vital Signs Temp Pulse Resp BP Pulse Ox 98.4 F 71 18 106/60 94 08/05/18 13:48 08/05/18 13:48 08/05/18 13:48 08/05/18 13:48 08/05/18 13:48 Oxygen Delivery Method Room Air Weight: 314 lb 2.539 oz Body Mass Index (BMI) 43.8 Intake and Output for Last 24 Hours 08/03/18 08/04/18 08/05/18 23:59 23:59 23:59 Intake Total 2997 / 2997 Balance 2997 / 2997 Laboratory Tests Past 24 Hrs 08/04/18 08/04/18 08/04/18 16:45 16:45 20:07 WBC 9.5 RBC 4.22 L Hgb 12.0 L Hct 35.4 L MCV 83.9 MCH 28.4 MCHC 33.9 RDW 12.6 RDW Differential 38.1 Plt Count 350 MPV 10.0 Immature Gran % (Auto) 0.200 Neut % (Auto) 77.8 H Lymph % (Auto) 10.6 L [place] % (Auto) 7.5 Eos % (Auto) 3.7 Baso % (Auto) 0.2 Absolute Neuts (auto) 7.4 Absolute Lymphs (auto) 1.01 Total Counted Not Reportable Eos Smear Total Cells Sodium 133 L Potassium 5.0 Chloride 108 H Carbon Dioxide 16.0 L Anion Gap 9 BUN 64 H Creatinine 4.74 H Estim Creat Clear Calc 16.99 Est GFR (MDRD) Af Amer 16 L Est GFR (MDRD) Non-Af 13 L BUN/Creatinine Ratio 13.5 Glucose 194 H Calcium 8.5 Phosphorus Magnesium Total Bilirubin 0.40 AST 10 L ALT 12 L Alkaline Phosphatase 99 Troponin I < 0.015 Total Protein 7.4 Albumin 3.4 Globulin 4.0 Albumin/Globulin Ratio 0.8 L Lipase 87 Urine Color Urine Clarity Urine pH Ur Specific Arma Urine Protein Urine Glucose (UA) Urine Ketones Urine Occult Blood Urine Nitrite Urine Bilirubin Urine Urobilinogen Ur Leukocyte Esterase Urine RBC Urine WBC Ur Squamous Epith Cells Urine Bacteria Hyaline Casts Urine Mucus Urine Creatinine 335.00 Urine Urea Nitrogen 08/04/18 08/04/18 08/04/18 20:07 20:07 20:09 WBC RBC Hgb Hct MCV MCH MCHC RDW RDW Differential Plt Count MPV Immature Gran % (Auto) Neut % (Auto) Lymph % (Auto) [place] % (Auto) Eos % (Auto) Baso % (Auto) Absolute Neuts (auto) Absolute Lymphs (auto) Total Counted Eos Smear Total Cells Pending Sodium Potassium Chloride Carbon Dioxide Anion Gap BUN Creatinine Estim Creat Clear Calc Est GFR (MDRD) Af Amer Est GFR (MDRD) Non-Af BUN/Creatinine Ratio Glucose Calcium Phosphorus Magnesium Total Bilirubin AST ALT Alkaline Phosphatase Troponin I Total Protein Albumin Globulin Albumin/Globulin Ratio Lipase Urine Color Yellow Urine Clarity Clear Urine pH 5.0 Ur Specific Arma 1.025 Urine Protein 30 H Urine Glucose (UA) Normal Urine Ketones 5 H Urine Occult Blood 10 H Urine Nitrite Negative Urine Bilirubin 1 H Urine Urobilinogen Normal Ur Leukocyte Esterase Negative Urine RBC 0 SEEN Urine WBC 5-10 SEEN Ur Squamous Epith Cells 0-5 SEEN Urine Bacteria RARE Hyaline Casts 5-10 SEEN Urine Mucus RARE Urine Creatinine Urine Urea Nitrogen 253 08/05/18 08/05/18 05:40 05:40 WBC RBC Hgb Hct MCV MCH MCHC RDW RDW Differential Plt Count MPV Immature Gran % (Auto) Neut % (Auto) Lymph % (Auto) [place] % (Auto) Eos % (Auto) Baso % (Auto) Absolute Neuts (auto) Absolute Lymphs (auto) Total Counted Eos Smear Total Cells Sodium 133 L Potassium 5.1 Chloride 111 H Carbon Dioxide 15.0 L Anion Gap 7 BUN 64 H Creatinine 4.26 H Estim Creat Clear Calc 18.90 Est GFR (MDRD) Af Amer 18 L Est GFR (MDRD) Non-Af 15 L BUN/Creatinine Ratio 15.0 Glucose 99 Calcium 8.3 L Phosphorus 4.6 Magnesium 1.9 Total Bilirubin AST ALT Alkaline Phosphatase Troponin I Total Protein Albumin Globulin Albumin/Globulin Ratio Lipase Urine Color Urine Clarity Urine pH Ur Specific Arma Urine Protein Urine Glucose (UA) Urine Ketones Urine Occult Blood Urine Nitrite Urine Bilirubin Urine Urobilinogen Ur Leukocyte Esterase Urine RBC Urine WBC Ur Squamous Epith Cells Urine Bacteria Hyaline Casts Urine Mucus Urine Creatinine Urine Urea Nitrogen POC Glucose 08/05/18 08/05/18 08/04/18 11:20 06:15 20:03 POC Glucose 193 H 97 102 Medical Necessity - Tobacco Use Smoking Status: Former smoker Tobacco Use: Non-smoker Assessment/Plan All Active Problems (Last Reviewed 08/04/18 @ 18:06 by Jerry Barfield DO) ALEJANDRA (acute kidney injury) (Acute) Gastroenteritis (Acute) Metabolic acidosis (Acute) Hyponatremia (Acute) Acute hypercapnic respiratory failure (Resolved) CAP (community acquired pneumonia) (Resolved) COPD with acute exacerbation (Resolved) Shortness of breath (Resolved) 1. ALEJANDRA 2/2 acute gastroenteritis presumed viral - no V/D this AM. Continue to hydrate. Nephro following. Renal US with medical renal dz. Abd XR neg. 2. Hx laryngeal CA in remission - tracheostomy, add ST evals. 3. DMt2 - SSI, hold orals 4. Hx diastolic CHF - no evidence of acute CHF. Hold lasix/leslie. DVT ppx: change to heparin DC planning: trend renal fx. advance diet as tolerated. This patient was seen by Gama gomez the supervision of Dr. Oliver. <Ashu Oliver - Last Filed: 08/05/18 15:29> Subjective: The patient still has nausea but not vomiting. Patient has problem in swallowing. Patient has drooling in the mouth. No diarrhea this morning. Heart rate is controlled. No fever or chills. Denies history of hematemesis/hematochezia or melena. - Physical Exam General: Alert, Oriented x3, Cooperative HEENT: Atraumatic, PERRLA, EOMI, Normocephalic Oral: - - On oral exam, the pharyngeal structures not seen because of overcrowding of pharyngeal structures. Pooling of saliva present on posterior part of tongue. Neck: Supple, No JVD, Negative Carotid Bruits, - Lungs: Clear to auscultation, Normal air movement, No rhonchi, No wheeze, No rales, Diminished - Air entry is diminished. Cardiovascular: Regular rate, No murmurs Abdomen: Bowel Sounds Present, Soft, Non Tender, Non-Distended Extremities: Capillary Refill Less than 3 Seconds, Edema Skin: No rashes, No breakdown Musculoskeletal: No Tenderness to Palpation of Joints or Extremities, Arthritic Changes Neurological: Cranial nerves II-XII grossly intact, Deep Tendon Reflexes 2+/4 and Symmetrical, Neuro grossly intact Psych/Mental Status: Normal Affect, Appropriate Vital Signs Temp Pulse Resp BP Pulse Ox 98.4 F 71 18 106/60 94 08/05/18 13:48 08/05/18 13:48 08/05/18 13:48 08/05/18 13:48 08/05/18 13:48 Oxygen Delivery Method Room Air Weight: 314 lb 2.539 oz Body Mass Index (BMI) 43.8 Intake and Output for Last 24 Hours 08/03/18 08/04/18 08/05/18 23:59 23:59 23:59 Intake Total 2997 / 2997 Balance 2997 / 2997 Laboratory Tests Past 24 Hrs 08/04/18 08/04/18 08/04/18 16:45 16:45 20:07 WBC 9.5 RBC 4.22 L Hgb 12.0 L Hct 35.4 L MCV 83.9 MCH 28.4 MCHC 33.9 RDW 12.6 RDW Differential 38.1 Plt Count 350 MPV 10.0 Immature Gran % (Auto) 0.200 Neut % (Auto) 77.8 H Lymph % (Auto) 10.6 L [place] % (Auto) 7.5 Eos % (Auto) 3.7 Baso % (Auto) 0.2 Absolute Neuts (auto) 7.4 Absolute Lymphs (auto) 1.01 Total Counted Not Reportable Eos Smear Total Cells Sodium 133 L Potassium 5.0 Chloride 108 H Carbon Dioxide 16.0 L Anion Gap 9 BUN 64 H Creatinine 4.74 H Estim Creat Clear Calc 16.99 Est GFR (MDRD) Af Amer 16 L Est GFR (MDRD) Non-Af 13 L BUN/Creatinine Ratio 13.5 Glucose 194 H Calcium 8.5 Phosphorus Magnesium Total Bilirubin 0.40 AST 10 L ALT 12 L Alkaline Phosphatase 99 Troponin I < 0.015 Total Protein 7.4 Albumin 3.4 Globulin 4.0 Albumin/Globulin Ratio 0.8 L Lipase 87 Urine Color Urine Clarity Urine pH Ur Specific Arma Urine Protein Urine Glucose (UA) Urine Ketones Urine Occult Blood Urine Nitrite Urine Bilirubin Urine Urobilinogen Ur Leukocyte Esterase Urine RBC Urine WBC Ur Squamous Epith Cells Urine Bacteria Hyaline Casts Urine Mucus Urine Creatinine 335.00 Urine Urea Nitrogen 08/04/18 08/04/18 08/04/18 20:07 20:07 20:09 WBC RBC Hgb Hct MCV MCH MCHC RDW RDW Differential Plt Count MPV Immature Gran % (Auto) Neut % (Auto) Lymph % (Auto) [place] % (Auto) Eos % (Auto) Baso % (Auto) Absolute Neuts (auto) Absolute Lymphs (auto) Total Counted Eos Smear Total Cells Pending Sodium Potassium Chloride Carbon Dioxide Anion Gap BUN Creatinine Estim Creat Clear Calc Est GFR (MDRD) Af Amer Est GFR (MDRD) Non-Af BUN/Creatinine Ratio Glucose Calcium Phosphorus Magnesium Total Bilirubin AST ALT Alkaline Phosphatase Troponin I Total Protein Albumin Globulin Albumin/Globulin Ratio Lipase Urine Color Yellow Urine Clarity Clear Urine pH 5.0 Ur Specific Arma 1.025 Urine Protein 30 H Urine Glucose (UA) Normal Urine Ketones 5 H Urine Occult Blood 10 H Urine Nitrite Negative Urine Bilirubin 1 H Urine Urobilinogen Normal Ur Leukocyte Esterase Negative Urine RBC 0 SEEN Urine WBC 5-10 SEEN Ur Squamous Epith Cells 0-5 SEEN Urine Bacteria RARE Hyaline Casts 5-10 SEEN Urine Mucus RARE Urine Creatinine Urine Urea Nitrogen 253 08/05/18 08/05/18 05:40 05:40 WBC RBC Hgb Hct MCV MCH MCHC RDW RDW Differential Plt Count MPV Immature Gran % (Auto) Neut % (Auto) Lymph % (Auto) [place] % (Auto) Eos % (Auto) Baso % (Auto) Absolute Neuts (auto) Absolute Lymphs (auto) Total Counted Eos Smear Total Cells Sodium 133 L Potassium 5.1 Chloride 111 H Carbon Dioxide 15.0 L Anion Gap 7 BUN 64 H Creatinine 4.26 H Estim Creat Clear Calc 18.90 Est GFR (MDRD) Af Amer 18 L Est GFR (MDRD) Non-Af 15 L BUN/Creatinine Ratio 15.0 Glucose 99 Calcium 8.3 L Phosphorus 4.6 Magnesium 1.9 Total Bilirubin AST ALT Alkaline Phosphatase Troponin I Total Protein Albumin Globulin Albumin/Globulin Ratio Lipase Urine Color Urine Clarity Urine pH Ur Specific Arma Urine Protein Urine Glucose (UA) Urine Ketones Urine Occult Blood Urine Nitrite Urine Bilirubin Urine Urobilinogen Ur Leukocyte Esterase Urine RBC Urine WBC Ur Squamous Epith Cells Urine Bacteria Hyaline Casts Urine Mucus Urine Creatinine Urine Urea Nitrogen POC Glucose 08/05/18 08/05/18 08/04/18 11:20 06:15 20:03 POC Glucose 193 H 97 102 Assessment/Plan This patient was seen in conjunction with Gama PELLETIER. I have independently interviewed and examined the patient and reviewed pertinent history, examination findings, laboratory and plan of management. I have reviewed the note and agree with the documented findings with the few additional points. In brief, patient is 63-year-old gentleman with multiple comorbidities including laryngeal cancer in remission status post tracheostomy, diabetes mellitus type 2, hypertension, chronic diastolic heart failure was admitted with nausea, vomiting and diarrhea for 3 to 4 days with acute kidney injury. IV fluid normal saline was changed to D5W bicarb drip. BUN/creatinine slightly improved. I&O's 3 L/2-3 times spontaneous voiding. UA shows protein 30, ketones 5, WBC 5-10 cells, LE negative nitrite negative. Ultrasound kidneys shows increased parenchymal echogenicity in the left kidney suggestive of medical renal disease. Right kidney normal. Bladder collapsed. Discussed with the coat operator. Dysphagia with tracheostomy: Patient has pooling of saliva at the base of tongue. Speech/swallow evaluation and management ordered. Hold her diet until cleared by speech therapist. I have discussed my assessment with Gama PELLETIER and orders have been reviewed. Laboratory Results 08/04/18 16:45: WBC 9.5, RBC 4.22 L, Hgb 12.0 L, Hct 35.4 L, MCV 83.9, MCH 28.4, MCHC 33.9, RDW 12.6, RDW Differential 38.1, Plt Count 350, MPV 10.0, Immature Gran % (Auto) 0.200, Neut % (Auto) 77.8 H, Lymph % (Auto) 10.6 L, [place] % (Auto) 7.5, Eos % (Auto) 3.7, Baso % (Auto) 0.2, Absolute Neuts (auto) 7.4, Absolute Lymphs (auto) 1.01, Total Counted Not Reportable 08/04/18 16:45: Sodium 133 L, Potassium 5.0, Chloride 108 H, Carbon Dioxide 16.0 L, Anion Gap 9, BUN 64 H, Creatinine 4.74 H, Estim Creat Clear Calc 16.99, Est GFR (MDRD) Af Amer 16 L, Est GFR (MDRD) Non-Af 13 L, BUN/Creatinine Ratio 13.5, Glucose 194 H, Calcium 8.5, Total Bilirubin 0.40, AST 10 L, ALT 12 L, Alkaline Phosphatase 99, Troponin I < 0.015, Total Protein 7.4, Albumin 3.4, Globulin 4.0, Albumin/Globulin Ratio 0.8 L, Lipase 87 08/04/18 20:03: POC Glucose 102 08/04/18 20:07: Urine Creatinine 335.00 08/04/18 20:07: Urine Urea Nitrogen 253 08/04/18 20:07: Urine Color Yellow, Urine Clarity Clear, Urine pH 5.0, Ur Specific [place] 1.025, Urine Protein 30 H, Urine Glucose (UA) Normal, Urine Ketones 5 H, Urine Occult Blood 10 H, Urine Nitrite Negative, Urine Bilirubin 1 H, Urine Urobilinogen Normal, Ur Leukocyte Esterase Negative, Urine RBC 0 SEEN, Urine WBC 5-10 SEEN, Ur Squamous Epith Cells 0-5 SEEN, Urine Bacteria RARE, Hyaline Casts 5-10 SEEN, Urine Mucus RARE 08/04/18 20:09: Eos Smear Total Cells Pending 08/05/18 05:40: Sodium 133 L, Potassium 5.1, Chloride 111 H, Carbon Dioxide 15.0 L, Anion Gap 7, BUN 64 H, Creatinine 4.26 H, Estim Creat Clear Calc 18.90, Est GFR (MDRD) Af Amer 18 L, Est GFR (MDRD) Non-Af 15 L, BUN/Creatinine Ratio 15.0, Glucose 99, Calcium 8.3 L 08/05/18 05:40: Phosphorus 4.6, Magnesium 1.9 08/05/18 06:15: POC Glucose 97 08/05/18 11:20: POC Glucose 193 H Clinical Impression(s) from Imaging Studies Chest X-Ray 08/04/18 16:52 IMPRESSION: Stable short term follow-up. Left basilar atelectasis. ADDENDUM: 08/04/18 8094 IMPRESSION: Stable exam. Left lower lobe scarring. Abdomen X-Ray 08/04/18 19:02 IMPRESSION: No evidence of bowel obstruction. Renal Ultrasound 08/05/18 09:14 IMPRESSION: There is increased echogenicity of the left renal parenchyma which may represent medical renal disease. Normal right kidney. The urinary bladder is collapsed limiting evaluation. Code Visit Inpatient E&M: 48236 Subs Hosp L3
--- NOTE | 2018-08-05 14:07 | CASEMGMT ---
RN TALA Face to Face with patient for initial transition planning/care coordination assessment. RN CM introduced self and role at [facility]. Patient lying in bed, alert and oriented. Patient willing to participate in assessment and is able to answer all questions appropriately. Care providers, pharmacy, and demographics verified. Patient wishes to discharge home, denies need for home health at this time. Patient states he has no further needs or concerns at this time. CM to follow for discharge planning needs that may arise. PCP: January Specialists: Leighton assembler fluorescent lights; Cordell bunch maker hand Preferred [facility]acy: [facility] Insurance: [facility] Prescription Benefit: yes Living Will/HPOA: none LNOK: Living Arrangements: Patient lives with in a 1 story home with 4 steps to enter the home. Patient is independent at home. Transportation: DME/HHC: Patient states that he has nebulizer and oxygen at 4lpm at through [facility]. Patient denies previous SNF or HHC. Disposition Plan: Patient to discharge home with family support and follow-up plans in place. Hanna DURHAM, RN, CM
--- NOTE | 2018-08-05 15:45 | NURSING ---
MADE DR NELSON AWARE OF SPEECH THERAPY EVAL. S.T. REC REG DIET FOR PT @ THIS TIME. DOES NOT WISH TO ORDER ANY FURTHER TESTING @ THIS TIME.
[2018-08-05 16:36] LABS: Bedside Glucose 234 mg/dL (70-110)
[2018-08-05] MEDS: Budesonide Respules 0.5 MG/2 ML AMPUL.NEB. INHALATION (19:17)
[2018-08-05] MEDS: Atorvastatin Calcium 40 MG Tablet PO (21:11)
[2018-08-05 21:21] LABS: Bedside Glucose 222 mg/dL (70-110)
[2018-08-06] VITALS (8 sets, daily range): BP systolic 118–139; BP diastolic 70–85; PULSE 68–90; RESP 16–20; TEMP 36.6–36.9; O2SAT 93–97
[2018-08-06] MEDS: Albuterol 2.5 MG/3 ML VIAL.NEB. INHALATION (00:09)
[2018-08-06] MEDS: Levothyroxine 150 MCG Tablet PO (05:21)
[2018-08-06] MEDS: Acetaminophen 325 MG Tablet 650 MG PO ×2 (05:27→20:54)
[2018-08-06 06:51] LABS: Anion Gap 8 (5-15); BUN 58 mg/dL (7-18); BUN/Creat Ratio 20.4 RATIO (10-20); Calcium,Total 7.7 mg/dL (8.5-10.1); Chloride 107 mmol/L (98-107); Creatinine, Serum 2.85 mg/dL (0.70-1.30); EST Glomerular Filtration Rate 24 mL/min (>60); Est Glom Filt Rate - Afr Amer 29 mL/min (>60); Estimated Creatinine Clearance 28.26 ml/min; Glucose 226 mg/dL (74-106); Potassium 4.4 mmol/L (3.5-5.1); Sodium Level 136 mmol/L (136-145)
[2018-08-06] MEDS: Insulin Lispro 100 UNIT/ML INSULN.PEN SC ×6 (08:30→17:05)
[2018-08-06] MEDS: Aspirin E.C. 81 MG Tablet PO (08:31)
[2018-08-06 08:36] LABS: Bedside Glucose 221 mg/dL (70-110)
[2018-08-06] MEDS: Magnesium Oxide 400 MG Tablet 800 MG PO (08:38)
[2018-08-06] MEDS: Heparin Injection (Vial) 5,000 UNIT/ML VIAL 5000 UNIT SC ×3 (08:39→22:34)
[2018-08-06] MEDS: Nystatin Ointment 1 APPLIC TOPICAL (08:39)
[2018-08-06] MEDS: Acetaminophen/Butalbital/Caffe 1 Tablet PO (09:08)
[2018-08-06] MEDS: Ipratropium/Albuterol Sulfate 3 ML AMPUL.NEB INHALATION ×3 (09:10→19:19)
[2018-08-06] MEDS: Budesonide Respules 0.5 MG/2 ML AMPUL.NEB. INHALATION ×2 (09:11→19:19)
[2018-08-06] MEDS: 0.9% NaCl Peripheral Flush Adult/Peds IV (10:38)
[2018-08-06 11:51] LABS: Bedside Glucose 228 mg/dL (70-110)
--- NOTE | 2018-08-06 14:00 | PN_ITS ---
<Gama Cortez - Last Filed: 08/06/18 14:00> Patient Problems: Active and Suspected Problems (Last Reviewed 08/04/18 @ 18:06 by Jerry Barfield DO) ALEJANDRA (acute kidney injury) (Acute) Gastroenteritis (Acute) Metabolic acidosis (Acute) Hyponatremia (Acute) Subjective: Pt resting comfortably in bed, recumbant position in discomfort. C/o worse nausea today, however no vomiting. He did start having more diarrhea as well - 5 episodes yesterday. No fever/chills. No cough/SOB. Pt did well with speech therapy who recommends thin liquids normal solids. - Physical Exam General: Alert, Oriented x3, Cooperative HEENT: Atraumatic, PERRLA, EOMI, Normocephalic Neck: Supple, No JVD, Negative Carotid Bruits Lungs: Clear to auscultation, Normal air movement Cardiovascular: Regular rate, No murmurs Abdomen: Bowel Sounds Present, Soft, Non Tender Extremities: No edema, Capillary Refill Less than 3 Seconds Skin: No rashes, No breakdown Musculoskeletal: No Tenderness to Palpation of Joints or Extremities Neurological: Cranial nerves II-XII grossly intact Psych/Mental Status: Normal Affect, Appropriate, Alert and oriented to time, place, person, mood and affect Vital Signs Temp Pulse Resp BP Pulse Ox 98.0 F 75 18 138/73 H 95 08/06/18 11:23 08/06/18 11:23 08/06/18 11:23 08/06/18 11:23 08/06/18 11:23 Oxygen Delivery Method Room Air Weight: 314 lb 2.539 oz Body Mass Index (BMI) 43.8 Intake and Output for Last 24 Hours 08/04/18 08/05/18 08/06/18 23:59 23:59 23:59 Intake Total 3924 / 5208 2393 / 2393 Output Total 0 / 0 Balance 3924 / 5208 2393 / 2393 Laboratory Tests Past 24 Hrs 08/06/18 06:10 Sodium 136 Potassium 4.4 Chloride 107 Carbon Dioxide 21.0 Anion Gap 8 BUN 58 H Creatinine 2.85 H Estim Creat Clear Calc 28.26 Est GFR (MDRD) Af Amer 29 L Est GFR (MDRD) Non-Af 24 L BUN/Creatinine Ratio 20.4 H Glucose 226 H Calcium 7.7 L POC Glucose 08/06/18 08/06/18 08/05/18 11:33 08:28 21:13 POC Glucose 228 H 221 H 222 H 08/05/18 16:27 POC Glucose 234 H Medical Necessity - Tobacco Use Smoking Status: Former smoker Tobacco Use: Non-smoker Assessment/Plan All Active Problems (Last Reviewed 08/04/18 @ 18:06 by Jerry Barfield DO) ALEJANDRA (acute kidney injury) (Acute) Gastroenteritis (Acute) Metabolic acidosis (Acute) Hyponatremia (Acute) Acute hypercapnic respiratory failure (Resolved) CAP (community acquired pneumonia) (Resolved) COPD with acute exacerbation (Resolved) Shortness of breath (Resolved) 1. ALEJANDRA 2/2 acute gastroenteritis presumed viral - still with significant nausea, diarrhea. Continue to hydrate. Nephro following. Renal US with medical renal dz. Abd XR neg. Renal function improved dramatically, however as he continues to have diarrhea and severe nausea will continue IV fluids overnight. 2. Hx laryngeal CA in remission - tracheostomy, no issues with ST. 3. DMt2 - SSI, hold orals 4. Hx diastolic CHF - no evidence of acute CHF. Hold lasix/leslie. DVT ppx: heparin DC planning: IVF + supportive care overnight. This patient was seen by Gama Cortez PA-C under the supervision of Dr. Oliver. <Ashu Oliver - Last Filed: 08/06/18 15:13> - Physical Exam General: Alert, Oriented x3, Cooperative HEENT: Atraumatic, PERRLA, EOMI, Normocephalic Neck: Supple, No JVD, Negative Carotid Bruits Lungs: Clear to auscultation, Normal air movement, No rhonchi, No wheeze, No rales Cardiovascular: Regular rate, Regular Rhythm, Normal S1, Normal S2, No murmurs Abdomen: Bowel Sounds Present, Soft, Non Tender, Non-Distended Extremities: Capillary Refill Less than 3 Seconds, Edema Skin: No rashes, No breakdown Musculoskeletal: No Tenderness to Palpation of Joints or Extremities, Arthritic Changes Neurological: Cranial nerves II-XII grossly intact, Deep Tendon Reflexes 2+/4 and Symmetrical, Neuro grossly intact Psych/Mental Status: Normal Affect, Appropriate Vital Signs Temp Pulse Resp BP Pulse Ox 98.0 F 75 18 138/73 H 95 08/06/18 11:23 08/06/18 11:23 08/06/18 11:23 08/06/18 11:23 08/06/18 11:23 Oxygen Delivery Method Room Air Weight: 314 lb 2.539 oz Body Mass Index (BMI) 43.8 Intake and Output for Last 24 Hours 08/04/18 08/05/18 08/06/18 23:59 23:59 23:59 Intake Total 3924 / 5208 2393 / 2393 Output Total 0 / 0 Balance 3924 / 5208 2393 / 2393 Laboratory Tests Past 24 Hrs 08/06/18 06:10 Sodium 136 Potassium 4.4 Chloride 107 Carbon Dioxide 21.0 Anion Gap 8 BUN 58 H Creatinine 2.85 H Estim Creat Clear Calc 28.26 Est GFR (MDRD) Af Amer 29 L Est GFR (MDRD) Non-Af 24 L BUN/Creatinine Ratio 20.4 H Glucose 226 H Calcium 7.7 L POC Glucose 08/06/18 08/06/18 08/05/18 11:33 08:28 21:13 POC Glucose 228 H 221 H 222 H 08/05/18 16:27 POC Glucose 234 H Assessment/Plan This patient was seen in conjunction with Gama PELLETIER. I have independently interviewed and examined the patient and reviewed pertinent history, examination findings, laboratory and plan of management. I have reviewed the note and agree with the documented findings with the few additional points. In brief, patient is 63-year-old gentleman with multiple comorbidities including laryngeal cancer in remission status post tracheostomy, diabetes mellitus type 2, hypertension, chronic diastolic heart failure was admitted with nausea, vomiting and diarrhea for 3 to 4 days with acute kidney injury. IV fluid normal saline was changed to D5W bicarb drip. BUN/creatinine slightly improved. I&O's 3 L/2-3 times spontaneous voiding. UA shows protein 30, ketones 5, WBC 5-10 cells, LE negative nitrite negative. Ultrasound kidneys shows increased parenchymal echogenicity in the left kidney suggestive of medical renal disease. Right kidney normal. Bladder collapsed. Patient kidney function is improving. Discussed with the buffer machine. Blood sugars are elevated: Dysphagia with tracheostomy: Patient has pooling of saliva at the base of tongue. The patient was assessed by speech therapist. Patient has mild oropharyngeal dysphagia secondary to prior laryngeal cancer status post laryngectomy and secondary presbyphagia. Patient also impossible respiratory asphyxiate just right mouth following total laryngectomy. Patient might be benefited by outpatient barium esophagogram or modified barium swallow as this is not the reason for admission and has not resulted in decreased calorie intake. Patient was recommended regular texture with thin liquid. I have discussed my assessment with Gama PELLETIER and orders have been reviewed. Laboratory Results 08/05/18 16:27: POC Glucose 234 H 08/05/18 21:13: POC Glucose 222 H 08/06/18 06:10: Sodium 136, Potassium 4.4, Chloride 107, Carbon Dioxide 21.0, Anion Gap 8, BUN 58 H, Creatinine 2.85 H, Estim Creat Clear Calc 28.26, Est GFR (MDRD) Af Amer 29 L, Est GFR (MDRD) Non-Af 24 L, BUN/Creatinine Ratio 20.4 H, Glucose 226 H, Calcium 7.7 L 08/06/18 08:28: POC Glucose 221 H 08/06/18 11:33: POC Glucose 228 H Code Visit Inpatient E&M: 99199 Subs Hosp L3
--- NOTE | 2018-08-06 15:16 | PCM.PN.REN ---
Patient Problems: Active and Suspected Problems (Last Reviewed 08/04/18 @ 18:06 by Jerry Barfield DO) ALEJANDRA (acute kidney injury) (Acute) Gastroenteritis (Acute) Metabolic acidosis (Acute) Hyponatremia (Acute) Subjective: Pt still has watery diarrhea. No nausea No vomiting. No SOB - Physical Exam General: Alert, Oriented x3 HEENT: Atraumatic, PERRLA Oral: Moist Mucosa Neck: Supple, No JVD Lungs: Clear to auscultation, Normal air movement, No rhonchi, No wheeze Cardiovascular: Regular rate, Regular Rhythm, Normal S1, Normal S2 Abdomen: Bowel Sounds Present, Soft, Non Tender, Non-Distended Extremities: No clubbing, No cyanosis, No edema Skin: No rashes Musculoskeletal: No Tenderness to Palpation of Joints or Extremities Lymphatic: No Cervical, Supraclavicular, or Inguinal Adenopathy Neurological: Cranial nerves II-XII grossly intact, Neuro grossly intact Psych/Mental Status: Normal Affect Vital Signs Temp Pulse Resp BP Pulse Ox 98.0 F 75 18 138/73 H 95 08/06/18 11:23 08/06/18 11:23 08/06/18 11:23 08/06/18 11:23 08/06/18 11:23 Oxygen Delivery Method Room Air Weight: 142.5 kg Body Mass Index (BMI) 43.8 Intake and Output for Last 24 Hours 08/04/18 08/05/18 08/06/18 23:59 23:59 23:59 Intake Total 3924 / 5208 2393 / 2393 Output Total 0 / 0 Balance 3924 / 5208 2393 / 2393 Laboratory Tests Past 24 Hrs 08/06/18 06:10 Sodium 136 Potassium 4.4 Chloride 107 Carbon Dioxide 21.0 Anion Gap 8 BUN 58 H Creatinine 2.85 H Estim Creat Clear Calc 28.26 Est GFR (MDRD) Af Amer 29 L Est GFR (MDRD) Non-Af 24 L BUN/Creatinine Ratio 20.4 H Glucose 226 H Calcium 7.7 L POC Glucose 08/06/18 08/06/18 08/05/18 11:33 08:28 21:13 POC Glucose 228 H 221 H 222 H 08/05/18 16:27 POC Glucose 234 H Medical Necessity - Tobacco Use Smoking Status: Former smoker Tobacco Use: Non-smoker Assessment/Plan All Active Problems (Last Reviewed 08/04/18 @ 18:06 by Jerry Barfield DO) ALEJANDRA (acute kidney injury) (Acute) Gastroenteritis (Acute) Metabolic acidosis (Acute) Hyponatremia (Acute) Acute hypercapnic respiratory failure (Resolved) CAP (community acquired pneumonia) (Resolved) COPD with acute exacerbation (Resolved) Shortness of breath (Resolved) 1- ALEJANDRA on CKD stage 3. baseline Cr 1.4-1.5 mg/dL. UA showed 30 protein . CKD is from diabetic nephropathy ALEJANDRA likely prerenal from vomiting/diarrhea along with lasix/aldactone and ACEI use Cr improved with holding ACIE/diuretics and with IVF Continue IVF at the same rate since he still has diarrhea No need for CLINICAL INFORMATICS SPECIALIST Keep MAP > 65 Check renal function in am 2- HTN: BP is well controlled. continue holding diuretics and ACEI 3- Normal anion zaheer acidosis from ALEJANDRA and diarrhea resolved with isotonic NaHCO3 drip I will continue the same rate 3-DM: hold metformin glycemic control as per the primary service 4- CHF; Pt has normal EF. Compensating. hold lasix . monitor clinical status closely with IVF 5- gastroenteritis. work up and symptomatic treatment as per the primary service Renal team will continue to follow Please call if any question at [phone] d/w Jazlyn Addison CNP
[2018-08-06 16:09] LABS: Eosinophil Ct. Urine No Eosinophils Seen % (.)
[2018-08-06 16:40] LABS: Bedside Glucose 320 mg/dL (70-110)
[2018-08-06] MEDS: Atorvastatin Calcium 40 MG Tablet PO (22:29)
[2018-08-06 22:36] LABS: Bedside Glucose 188 mg/dL (70-110)
[2018-08-07 01:08] VITALS: PULSE 81; RESP 20
[2018-08-07] MEDS: Ipratropium/Albuterol Sulfate 3 ML AMPUL.NEB INHALATION ×3 (01:08→13:24)
[2018-08-07 01:54] VITALS: O2SAT 96
[2018-08-07 02:00] VITALS: BP 148/74; PULSE 70; RESP 16; TEMP 36.8; O2SAT 100; O2SAT 99
[2018-08-07] MEDS: Heparin Injection (Vial) 5,000 UNIT/ML VIAL 5000 UNIT SC ×2 (05:44→13:57)
[2018-08-07] MEDS: Levothyroxine 150 MCG Tablet PO (05:44)
[2018-08-07 06:59] VITALS: PULSE 82; RESP 18; O2SAT 91
[2018-08-07] MEDS: Budesonide Respules 0.5 MG/2 ML AMPUL.NEB. INHALATION (06:59)
[2018-08-07 07:14] LABS: Anion Gap 9 (5-15); BUN 42 mg/dL (7-18); BUN/Creat Ratio 26.8 RATIO (10-20); Chloride 104 mmol/L (98-107); Creatinine, Serum 1.57 mg/dL (0.70-1.30); EST Glomerular Filtration Rate 48 mL/min (>60); Est Glom Filt Rate - Afr Amer 58 mL/min (>60); Estimated Creatinine Clearance 51.29 ml/min; Glucose 197 mg/dL (74-106); Potassium 3.6 mmol/L (3.5-5.1); Sodium Level 141 mmol/L (136-145)
[2018-08-07] MEDS: Aspirin E.C. 81 MG Tablet PO (08:41)
[2018-08-07] MEDS: Insulin Lispro 100 UNIT/ML INSULN.PEN SC ×4 (08:42→11:02)
[2018-08-07 10:54] VITALS: BP 157/83; PULSE 81; RESP 20; TEMP 36.9; O2SAT 62
[2018-08-07] MEDS: 0.9% NaCl Peripheral Flush Adult/Peds IV (10:58)
[2018-08-07 11:01] LABS: Bedside Glucose 197 mg/dL (70-110)
[2018-08-07 11:10] LABS: Bedside Glucose 274 mg/dL (70-110)
--- NOTE | 2018-08-07 11:14 | DCINST_ITS ---
- Discharge Diagnoses Current Active Problems: Current Active and Chronic Problems (Last Reviewed 08/04/18 @ 18:06 by Jerry Barfield DO) ALEJANDRA (acute kidney injury) (Acute) Gastroenteritis (Acute) Metabolic acidosis (Acute) Hyponatremia (Acute) You will use the following diet at home:: Calorie/Carbohydrate Controlled (sp ecify 1200, 1400, etc) - 1800 ADA, Cardiac Discharge Activity: May Not Drive Weight Bearing Status: Weight bearing as tolerated Call your doctor if you observe: Coldness, Increased Pain, Inability to urinate, Inability to have a bowel movement, Shortness of breath, Dizziness, Fainting spells, Swelling in the ankles, Chest pain, Increased palpitations (irregular heartbeat) Allergies/Adverse Reactions: Allergies No Known Allergies Allergy (Verified 08/04/18 16:33) Medications to take at Discharge Levothyroxine [Synthroid] 150 mcg PO DAILY 06/04/14 Spironolactone [Aldactone] 25 mg PO BID 06/04/14 glipiZIDE [Glucotrol] 10 mg PO BIDAC 06/04/14 Lisinopril [Zestril] 40 mg PO BID 12/06/14 Atorvastatin Calcium [Lipitor] 40 mg PO QHS 04/12/17 Ipratropium/Albuterol Sulfate [Duoneb] 3 ml INHALATION Q6H PRN 04/12/17 Metolazone [Zaroxolyn] 2.5 mg PO DAILY 04/12/17 budesonide 0.25 mg/2 mL suspension for nebulization 2 ml INHALATION BID 07/18/18 furosemide 40 mg tablet 40 mg PO BID tab 07/18/18 insulin detemir (U-100) 100 unit/mL (3 mL) subcutaneous pen 30 unit SC QHS 07/18/18 insulin detemir (U-100) 100 unit/mL (3 mL) subcutaneous pen 35 unit SUBCUT QAM ml 07/18/18 nystatin 100,000 unit/gram topical cream 1 applic TOPICAL BID 07/18/18 dulaglutide 1.5 mg/0.5 mL subcutaneous pen injector 0.75 mg SC QWEEK 07/23/18 insulin aspart (U-100) 100 unit/mL (3 mL) subcutaneous pen 3 unit SC .COMPLEX 30 Days ml 07/23/18 metformin ER 1,000 mg tablet,extended release 24hr 2,000 mg PO QPM tab 07/23/18 Primary Care Physician: Chinmay Sin MD [Primary Care Provider] - Please follow up with your Primary Care Physician in: in 1-2 weeks Test Results: Test results from this visit will be discussed in further detail at your follow- up appointment, if applicable. Please Follow Up With: Yemi Calderon MD When: in 3 weeks with F/U BMP in 1 week Please Follow Up With: Saul Landa MD When: as scheduled with outpatient ECHO
[2018-08-07 13:24] VITALS: PULSE 80; RESP 18
--- NOTE | 2018-08-07 13:34 | PCM.PN.REN ---
Patient Problems: Active and Suspected Problems (Last Reviewed 08/04/18 @ 18:06 by Jerry Barfield DO) ALEJANDRA (acute kidney injury) (Acute) Gastroenteritis (Acute) Metabolic acidosis (Acute) Hyponatremia (Acute) Subjective: Pt's diarrhea has stopped. No nausea No vomiting. No SOB - Physical Exam General: Alert, Oriented x3 HEENT: Atraumatic, PERRLA Oral: Moist Mucosa Neck: Supple, No JVD Lungs: Clear to auscultation, Normal air movement, No rhonchi, No wheeze, No rales Cardiovascular: Regular rate, Regular Rhythm, Normal S1, Normal S2 Abdomen: Bowel Sounds Present, Soft, Non Tender, Non-Distended Extremities: No clubbing, No cyanosis, Edema - +1 edema of LE Musculoskeletal: No Tenderness to Palpation of Joints or Extremities Lymphatic: No Cervical, Supraclavicular, or Inguinal Adenopathy Neurological: Cranial nerves II-XII grossly intact, Neuro grossly intact Psych/Mental Status: Appropriate Vital Signs Temp Pulse Resp BP Pulse Ox 98.4 F 81 20 H 157/83 H 62 08/07/18 10:54 08/07/18 10:54 08/07/18 10:54 08/07/18 10:54 08/07/18 10:54 Oxygen Delivery Method Room Air Weight: 142.5 kg Body Mass Index (BMI) 43.8 Intake and Output for Last 24 Hours 08/05/18 08/06/18 08/07/18 23:59 23:59 23:59 Intake Total 3924 / 5208 4353 / 4353 1806 / 1806 Output Total 0 / 0 600 / 600 Balance 3924 / 5208 3753 / 3753 1806 / 1806 Laboratory Tests Past 24 Hrs 08/04/18 08/07/18 20:09 06:29 Eos Smear Total Cells No Eosinophils Seen Sodium 141 Potassium 3.6 Chloride 104 Carbon Dioxide 28.0 Anion Gap 9 BUN 42 H Creatinine 1.57 H Estim Creat Clear Calc 51.29 Est GFR (MDRD) Af Amer 58 L Est GFR (MDRD) Non-Af 48 L BUN/Creatinine Ratio 26.8 H Glucose 197 H Calcium 8.0 L POC Glucose 08/07/18 08/07/18 08/06/18 10:59 06:47 22:22 POC Glucose 274 H 197 H 188 H 08/06/18 16:33 POC Glucose 320 H Medical Necessity - Tobacco Use Smoking Status: Former smoker Tobacco Use: Non-smoker Assessment/Plan All Active Problems (Last Reviewed 08/04/18 @ 18:06 by Jerry Barfield DO) ALEJANDRA (acute kidney injury) (Acute) Gastroenteritis (Acute) Metabolic acidosis (Acute) Hyponatremia (Acute) Acute hypercapnic respiratory failure (Resolved) CAP (community acquired pneumonia) (Resolved) COPD with acute exacerbation (Resolved) Shortness of breath (Resolved) 1- ALEJANDRA on CKD stage 3. baseline Cr 1.4-1.5 mg/dL. UA showed 30 protein . CKD is from diabetic nephropathy ALEJANDRA likely prerenal from vomiting/diarrhea along with lasix/bumex/aldactone and ACEI use Cr improved with holding ACIE/diuretics and with IVF Cr is back to baseline. Cr today 1.57 mg/dL Off IVF since this morning Keep MAP > 65 Check renal function in am 2- HTN: BP is well controlled. Currently he is off diuretics and ACEI 3- Normal anion zaheer acidosis from ALEJANDRA and diarrhea resolved with isotonic NaHCO3 drip 3-DM: glycemic control as per the primary service 4- CHF; Pt has normal EF. Compensating. hold lasix . monitor clinical status closely with IVF 5- gastroenteritis. resolved Ok to discharge patient home. Pt can be resumed on home diuretics and ACEI Please check renal function next week Will arrange for office follow up in 3 weeks after discharge Please call if any question at [phone] d/w Jazlyn Rapp
--- NOTE | 2018-08-07 14:14 | PCM.DC.SUM ---
Discharge Date and Diagnosis - Problem List Patient Problems: Active and Suspected Problems (Last Reviewed 08/04/18 @ 18:06 by Jerry Barfield DO) ALEJANDRA (acute kidney injury) (Acute) Gastroenteritis (Acute) Metabolic acidosis (Acute) Hyponatremia (Acute) Date of Admission: 08/04/18 Date of Discharge: 08/07/18 - Primary Discharge Diagnosis Active and Suspected Problems (Last Reviewed 08/04/18 @ 18:06 by Jerry Barfield DO) ALEJANDRA (acute kidney injury) (Acute) Gastroenteritis (Acute) Metabolic acidosis (Acute) Hyponatremia (Acute) - Secondary Discharge Diagnosis Chronic Problems (Last Reviewed 08/04/18 @ 18:06 by Jerry Barfield DO) Diabetes mellitus, type II (Chronic) Hyperlipidemia (Chronic) Atherosclerosis of coronary artery of [place] heart without angina pectoris (Chronic) Essential hypertension (Chronic) Hypoxemia (Chronic) History of diastolic dysfunction (Chronic) EF 55% with abnoraml relaxation on 06/05/14 COPD (chronic obstructive pulmonary disease) (Chronic) Hospital Course and Treatment Operations: None Summary of Care Provided: The patient is 63-year-old gentleman with multiple comorbidities including 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 Initially started on IV fluid normal saline but was changed to D5W bicarb drip and patient was found non-anion gap metabolic acidosis bicarb 15 with no improvement on normal saline. BUN/creatinine improved to 42/1.57 from creatinine 4.7. I&O's 3 L/5 times voiding every day. UA shows protein 30, ketones 5, WBC 5-10 cells, LE negative nitrite negative. Ultrasound kidneys shows increased parenchymal echogenicity in the left kidney suggestive of medical renal disease. Right kidney normal. Bladder collapsed. Patient kidney function is improving. Patient was seen by director of medical services. Diuretics resume Lasix 40 mg twice daily and metolazone 2.5 mg daily. Discontinue spironolactone as EF is 65% on last heart cath in September 2014 discharge mild coronary artery disease about 30%. Patient will need echo as an outpatient in 2 to 3 weeks and follow-up with Dr. Landa. Repeat BMP in 1 week. Discussed with the director of medical services. Patient has diabetes mellitus type 2 and blood sugars were controlled. Patient oral hypoglycemic agents were held because of acute kidney injury. Advised to hold metformin and glipizide for 1 more week and follow with PCP to resume if kidney function is back to baseline. Dysphagia with tracheostomy: Patient has pooling of saliva at the base of tongue. The patient was assessed by speech therapist. Patient has mild oropharyngeal dysphagia secondary to prior laryngeal cancer status post laryngectomy and secondary presbyphagia. Patient also impossible respiratory asphyxiate just right mouth following total laryngectomy. Patient might be benefited by outpatient barium esophagogram or modified barium swallow but mild oropharyngeal dysphagia did not resulting decreased calorie intake. Patient was recommended regular texture with thin liquid. Patient has most probably viral gastroenteritis which is resolved. Discharge medication reconciliation done. Discharge follow-up instructions completed. Discharge process discussed with the patient and all questions were answered to patient's satisfaction. Resume diuretics as mentioned above. BMP as an outpatient in 1 week and follow-up with director of medical services Dr. Gallegos. Outpatient barium esophagram/modified barium swallow to further evaluate for oropharyngeal/esophageal dysphagia. Patient does not have risk for aspiration as he had a total laryngectomy. Total time spent, exact 35 minutes on discharge meds reconciliation, examination, review of imaging and blood test and discussion with the patient on follow-up instructions. Patient Problems: Active and Suspected Problems (Last Reviewed 08/04/18 @ 18:06 by Jerry Barfield DO) ALEJANDRA (acute kidney injury) (Acute) Gastroenteritis (Acute) Metabolic acidosis (Acute) Hyponatremia (Acute) Subjective: Seen and examined. Diarrhea has stopped. Blood pressure is 148/74. Heart rate 70/min regular. Patient has having good urine output voided 4-5 times at night. BUN/creatinine 42/1.57. Electrolytes within normal limits. - Physical Exam General: Alert, Oriented x3, Cooperative HEENT: Atraumatic, PERRLA, EOMI, Normocephalic Neck: Supple, No JVD, Negative Carotid Bruits Lungs: Clear to auscultation, Normal air movement, No rhonchi, No wheeze, No rales, Diminished - Air entry is diminished bilateral lung bases secondary to obesity Cardiovascular: Regular rate, Regular Rhythm, Normal S1, Normal S2, No murmurs Abdomen: Bowel Sounds Present, Soft, Non Tender, Non-Distended Extremities: Capillary Refill Less than 3 Seconds, Edema - Very mild edema Skin: No rashes, No breakdown Musculoskeletal: No Tenderness to Palpation of Joints or Extremities, Arthritic Changes Neurological: Cranial nerves II-XII grossly intact, Deep Tendon Reflexes 2+/4 and Symmetrical, Neuro grossly intact Psych/Mental Status: Normal Affect, Appropriate Vital Signs Temp Pulse Resp BP Pulse Ox 98.4 F 81 20 H 157/83 H 62 08/07/18 10:54 08/07/18 10:54 08/07/18 10:54 08/07/18 10:54 08/07/18 10:54 Oxygen Delivery Method Room Air Weight: 314 lb 2.539 oz Body Mass Index (BMI) 43.8 Intake and Output for Last 24 Hours 08/05/18 08/06/18 08/07/18 23:59 23:59 23:59 Intake Total 3924 / 5208 4353 / 4353 1806 / 1806 Output Total 0 / 0 600 / 600 Balance 3924 / 5208 3753 / 3753 1806 / 1806 Laboratory Tests Past 24 Hrs 08/04/18 08/07/18 20:09 06:29 Eos Smear Total Cells No Eosinophils Seen Sodium 141 Potassium 3.6 Chloride 104 Carbon Dioxide 28.0 Anion Gap 9 BUN 42 H Creatinine 1.57 H Estim Creat Clear Calc 51.29 Est GFR (MDRD) Af Amer 58 L Est GFR (MDRD) Non-Af 48 L BUN/Creatinine Ratio 26.8 H Glucose 197 H Calcium 8.0 L POC Glucose 08/07/18 08/07/18 08/06/18 10:59 06:47 22:22 POC Glucose 274 H 197 H 188 H 08/06/18 08/06/18 16:33 11:33 POC Glucose 320 H 228 H Home Medications: Medications to take at Discharge Levothyroxine [Synthroid] 150 mcg PO DAILY 06/04/14 Atorvastatin Calcium [Lipitor] 40 mg PO QHS 04/12/17 Ipratropium/Albuterol Sulfate [Duoneb] 3 ml INHALATION Q6H PRN 04/12/17 Metolazone [Zaroxolyn] 2.5 mg PO DAILY 04/12/17 budesonide 0.25 mg/2 mL suspension for nebulization 2 ml INHALATION BID 07/18/18 furosemide 40 mg tablet 40 mg PO BID tab 07/18/18 insulin detemir (U-100) 100 unit/mL (3 mL) subcutaneous pen 35 unit SUBCUT QAM ml 07/18/18 nystatin 100,000 unit/gram topical cream 1 applic TOPICAL BID 07/18/18 dulaglutide 1.5 mg/0.5 mL subcutaneous pen injector 0.75 mg SC QWEEK 07/23/18 insulin aspart (U-100) 100 unit/mL (3 mL) subcutaneous pen 3 unit SC .COMPLEX 30 Days ml 07/23/18 Insulin Detemir [Levemir FlexPen] 25 unit SUBCUT QHS #0 08/07/18 Lisinopril [Zestril] 40 mg PO DAILY #0 08/07/18 Metformin HCl [Metformin ER Osmotic] 1,000 mg PO QPM #0 tab 08/07/18 glipiZIDE [Glucotrol] 10 mg PO BIDAC #0 08/07/18 Primary Care Physician: Chinmay Sin MD [Primary Care Provider] - Medical Necessity - Tobacco Use Smoking Status: Former smoker Tobacco Use: Non-smoker Meaningful Use Info Meaningful Use Diagnoses (Choose all that apply): None applicable Code Visit Inpatient E&M: 29448 Disch Hosp
--- NOTE | 2018-08-09 15:02 | CASEMGMT ---
RN CM DC PHONE CALL DC DATE: 08/07/18 DC Disposition: Home Diagnosis on Discharge: ALEJANDRA LACE/STRATA: 12/08 Intro role of CM to patient via phone. Pt was short in answers. No questions re DC instructions, f/u or prescriptions. No care improvement suggestions given. Rebecca BUTTSN RN ACM
== END 2018-08-07 14:48 | disposition home or self-care (01) | DRG 683 ==
LOC: ED 17:08 → MS3 18:08
PROVIDERS: Physician Assistant; Emergency Provider Emergency Medicine; Family Provider Family Medicine; PCP Family Medicine; Visit Provider Internal Medicine
DX: N17.9 Acute kidney failure, unspecified (principal); I13.0 Hypertensive heart and chronic kidney disease with heart failure and stage 1 through stage 4 chronic kidney disease, or unspecified chronic kidney disease; I50.32 Chronic diastolic (congestive) heart failure; E87.1 Hypo-osmolality and hyponatremia; E87.2 Acidosis; Z68.41 Body mass index [BMI] 40.0-44.9, adult; E86.0 Dehydration; Z93.0 Tracheostomy status; Z85.21 Personal history of malignant neoplasm of larynx; Z90.02 Acquired absence of larynx; Z66 Do not resuscitate; N18.3 Chronic kidney disease, stage 3 (moderate); E11.22 Type 2 diabetes mellitus with diabetic chronic kidney disease; Z87.891 Personal history of nicotine dependence; E78.5 Hyperlipidemia, unspecified; I25.10 Atherosclerotic heart disease of native coronary artery without angina pectoris; R13.12 Dysphagia, oropharyngeal phase; A08.4 Viral intestinal infection, unspecified; Z79.4 Long term (current) use of insulin; E66.01 Morbid (severe) obesity due to excess calories
CPT/HCPCS: 36415; 71045; 74019; 76770; 80048; 80053; 81001; 82570; 82962; 83690; 83735; 84100; 84484; 84540; 85025; 87205; 92526; 92610; 93005; 94640; 99285; J7030; A4216; J2405

== ENCOUNTER → 2018-08-30 12:31 | Outpatient (CLI) | payer MEDICARE, SELFPAY ==
[2018-07-23 15:31] VITALS: BMI 44.4
[2018-08-04 18:50] VITALS: BMI 43.8
--- NOTE | 2018-08-30 12:33 | ECHOCS_ITS ---
Reason For Study: CHF Procedure This was a 2D Doppler, Color Flow transthoracic echocardiogram. The study was technically difficult. Exam performed in department. Left Ventricle Normal size and thickness. The estimated ejection fraction is 65 %. Stage 1 diastolic dysfunction. No regional wall motion abnormalities noted. Right Ventricle Normal right ventricle. Normal systolic function. Atria Normal left atrium. Mitral Valve The mitral valve is structurally normal. No prolapse or stenosis seen. Pericardium/Pleural No pericardial effusion. Medication 22 gauge I.V. with prn adaptor inserted into right arm. Diluted definity 4ml given slow IV push to enhance endocardial definition. MMode/2D Measurements & Calculations RVDd: 4.1 cm Ao root diam: 3.8 cm LA dimension(2D): 4.4 cm Doppler Measurements & Calculations MV E max eric: 49.5 cm/sec Lat Peak E' Eric: 6.9 cm/sec Med Peak E' Eric: 5.8 cm/sec MV A max eric: 68.5 cm/sec E/E' lat: 7.2 E/E' med: 8.5 MV E/A: 0.72 Ao V2 max: 148.6 cm/sec LV V1 max: 103.5 cm/sec PA V2 max: 100.0 cm/sec Ao max P.8 mmHg LV V1 max P.3 mmHg Interpretation Summary The estimated ejection fraction is 65 %. Stage 1 diastolic dysfunction. Compared to echo report dated 06/11/2009, no appreciable changes noted. The study was technically difficult. Contrast injection was performed. Ordering Physician: Saul Landa Referring Physician: Chinmay Sin Performed By: Denise Calderon THIERRY
== END ==
LOC: CVS 12:32
PROVIDERS: Family Provider Family Medicine; PCP Family Medicine; Referring Provider Internal Medicine Cardiovascular Disease; Visit Provider Internal Medicine Cardiovascular Disease
DX: I25.10 Atherosclerotic heart disease of native coronary artery without angina pectoris (principal); N17.9 Acute kidney failure, unspecified; I50.9 Heart failure, unspecified
CPT/HCPCS: 93306; Q9957; A4216; C8929

== ENCOUNTER → 2018-09-05 12:38 | Outpatient (CLI) | payer MEDICARE, SELFPAY ==
[2018-08-04 18:50] VITALS: BMI 43.8
[2018-09-05 13:44] LABS: Albumin, Serum 3.5 g/dL (3.2-5.0); BUN 29 mg/dL (7-18); BUN/Creat Ratio 18.8 RATIO (10-20); Calcium,Total 9.2 mg/dL (8.5-10.1); Chloride 96 mmol/L (98-107); Creatinine, Serum 1.54 mg/dL (0.70-1.30); EST Glomerular Filtration Rate 49 mL/min (>60); Est Glom Filt Rate - Afr Amer 59 mL/min (>60); Glucose 268 mg/dL (74-106); Phosphorus 3.3 mg/dL (2.5-4.9); Potassium 3.8 mmol/L (3.5-5.1); Sodium Level 132 mmol/L (136-145)
== END ==
PROVIDERS: Family Provider Family Medicine; PCP Family Medicine; Referring Provider Internal Medicine Nephrology; Visit Provider Internal Medicine Nephrology
DX: N17.9 Acute kidney failure, unspecified (principal)
CPT/HCPCS: 36415; 80069

== ENCOUNTER → 2018-09-06 10:49 | Outpatient (CLI) | payer MEDICARE, SELFPAY ==
[2018-07-23 15:31] VITALS: BMI 44.4
[2018-08-04 18:50] VITALS: BMI 43.8
--- NOTE | 2018-09-06 10:53 | NM_ITS ---
CLINICAL: 63-year-old male with history of chronic nausea and early satiety. SEMI-SOLID PHASE 99m Tc SULFUR COLLOID GASTRIC EMPTYING STUDY COMPARISON: None available FINDINGS: The patient was administered 1.1 mCi of 99m Tc sulfur colloid mixed with oatmeal and consumed per os. Image acquisitions in the anterior-posterior projections for a total of 60 minutes. There is prompt visualization of the stomach. There is no gastroesophageal reflux identified. First order kinetics are maintained throughout the duration of the acquisitions. The T1/2 linear fit was calculated to be 154.27 minutes, (Normal: 12-56 minutes). NM/Gastric Emptying Study IMPRESSION: 1. ABNORMAL 99m Tc sulfur colloid semi-solid phase (oatmeal) gastric emptying imaging examination. A. There is delayed semi-solid phase gastric emptying compared to normal controls with maintained first order kinetics throughout all components of the examination. (Jadyn et al, J Nucl Med Tech 38: 186, 2010). Electronically Signed: Fuentes Markham DO at 9:52 EDT Tel , Service support ,
== END ==
PROVIDERS: Family Provider Family Medicine; PCP Family Medicine; Referring Provider Family Medicine; Visit Provider Family Medicine
DX: R13.12 Dysphagia, oropharyngeal phase (principal); R11.0 Nausea; E11.65 Type 2 diabetes mellitus with hyperglycemia
CPT/HCPCS: 78264; A9541

== ENCOUNTER → 2018-09-13 10:05 | Outpatient (CLI) | payer MEDICARE, SELFPAY ==
[2018-08-04 18:50] VITALS: BMI 43.8
--- NOTE | 2018-09-13 10:12 | STEWCON_ITS ---
Reason For Study: CAD/ASHD Stress Results Protocol: Dobutamine Protocol Maximum Predicted HR: 157 bpm Target HR: 133 bpm % Maximum Predicted HR: 87 % DurationHeart Rate Stage (mm:ss) (bpm) BP Dose Comment BASELINE 63 133/77 2CC DEFINITY STAGE 1 4:16 92 153/7810.00SLIGHT HEADACHE, 1 CC DEFINITY STAGE 2 3:00 122 138/6820.00 STAGE 3 3:30 136 147/7430.001 CC DEFINITY RECOVERY 100 126/62 2 CC DEFINITY Stress Duration: 10:46 mm:ss Maximum Stress HR: 136 bpm Baseline Echocardiogram Findings The estimated ejection fraction is 65 %. Stress Echo Wall motion Data Resting WM Intermediate WM Stress WM Resting Wall Motion Wall Motion Stress No regional wall motion No regional wall motion abnormalities noted. abnormalities noted. EKG Data The baseline ECG displays normal sinus rhythm. The patient was titrated from 10 mcg to a maximun of 30 mcg of dobutamine during the stress. The maximum heart rate attained was 137 beats per minute. This was 87% of maximum predicted heart rate. During dobutamine infusion, there were no ST or T wave changes noted to suggest ischemia. No clinical angina was noted. Interpretation Summary The estimated ejection fraction is 65 %. Normal, adequate, dobutamine echocardiogram. Negative for ischemia by EKG and echocardiographic criteria. Normal blood pressure response to dobutamine. Rare PVC noted. Test terminated due to attainment target heart rate. Final LVEF of 75%. Decreased sensitivity due to poor echo windows requiring Definity agent. No complications. The study was technically difficult. Contrast injection was performed. Ordering Physician: Saul Landa Referring Physician: Saul Landa Performed By: Denise Calderon RDCS
== END ==
LOC: CVS 10:06
PROVIDERS: Family Provider Family Medicine; PCP Family Medicine; Referring Provider Internal Medicine Cardiovascular Disease; Visit Provider Internal Medicine Cardiovascular Disease
DX: I25.10 Atherosclerotic heart disease of native coronary artery without angina pectoris (principal)
CPT/HCPCS: 93017; 93350; J7040; Q9957; A4216; C8928

== ENCOUNTER → 2018-09-17 08:49 | Outpatient (CLI) | payer MEDICARE, SELFPAY ==
[2018-08-04 18:50] VITALS: BMI 43.8
--- NOTE | 2018-09-17 08:51 | RAD_ITS ---
STUDY: AIR CONTRAST UPPER GI SERIES with esophagram. REASON FOR EXAM: Male, 63 years old. Dysphasia. Prior laryngectomy. FLUOROSCOPY TIME (if supplied): (1:00) minutes/seconds TECHNIQUE: SINGLE CONTRAST AND AIR CONTRAST FLUOROSCOPIC IMAGES. COMPARISON: None. FINDINGS: The cervical esophagus demonstrates normal motility without aspiration. There is no stricture or extrinsic mass effect. No intraluminal polypoid mass is identified. The thoracic esophagus distends well without stricture or mucosal fold thickening. No mucosal ulcerations are identified. There is no extrinsic mass effect. There are no diverticula. The patient ingested a 12 mm tablet of barium without any difficulty. No hiatal hernia or gastroesophageal reflux was identified. The stomach distends well without mucosal fold thickening or mucosal ulceration. There is no intraluminal mass. The duodenal bulb is freely distensible without deformity or ulceration. The duodenal sweep is normal in position and caliber. RAD/Upper GI w/BA Swallow IMPRESSION: Normal air-contrast upper GI series. Electronically Signed: Tashi Lipscomb, at 15:26 EDT , Service support ,
== END ==
LOC: RAD 08:50
PROVIDERS: Family Provider Family Medicine; PCP Family Medicine; Referring Provider Family Medicine; Visit Provider Family Medicine
DX: R13.12 Dysphagia, oropharyngeal phase (principal); R11.0 Nausea; E11.65 Type 2 diabetes mellitus with hyperglycemia
CPT/HCPCS: 74246

== ENCOUNTER 2018-09-28 16:20 | Inpatient (IN) | payer MEDICARE, SELFPAY ==
[2018-08-04 18:50] VITALS: BMI 43.8
[2018-09-28 16:21] VITALS: BP 147/69; PULSE 87; RESP 20; TEMP 36.8; O2SAT 95; BMI 44.7
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
--- NOTE | 2018-09-28 16:31 | CT_ITS ---
STUDY: CT ABDOMEN AND PELVIS WITHOUT CONTRAST REASON FOR EXAM: Male, 63 years old. Right flank pain RADIATION DOSAGE (If Supplied By Facility): CTDIvol = ( 24.17 ) mGy, DLP = ( 1317.58 ) mGycm TECHNIQUE: Transaxial images were obtained from the dome of the diaphragm to the symphysis pubis without oral contrast, and without intravenous contrast. Sagittal and coronal images were reconstructed. Individualized dose optimization techniques were used for this CT. COMPARISON: November 2017, 09 May 2015, 08 September 2014 FINDINGS: The visualized lung bases are unremarkable. There is advanced coronary artery disease. Normal liver. Normal gallbladder and extrahepatic biliary system. Normal spleen. Normal pancreas. The right kidney is larger, the left is smaller and is scarred. There are right greater than left bilateral chronic infiltrative perirenal space changes. There are stable bilateral benign adrenal myelolipomas. There is no intestinal obstruction. There is sigmoid diverticulosis without diverticulitis. Appendix is resected. Normal abdominal aorta. Normal inferior vena cava. There is intra-abdominal lipomatosis. Normal urinary bladder. There is prior ventral abdominal incision outlined by sutures.. Normal osseous structures. There is no change since prior. CT/Abdomen/Pelvis without Cont IMPRESSION: 1. No acute or focal findings, no change since prior. 2. No urinary calculi. Electronically Signed: Margi Cárdenas, at 17:44 EDT Tel , Service support ,
[2018-09-28 16:47] VITALS: RESP 20
[2018-09-28 17:03] LABS: Anion Gap 8 (5-15); BUN 30 mg/dL (7-18); BUN/Creat Ratio 18.8 RATIO (10-20); Calcium,Total 8.8 mg/dL (8.5-10.1); Chloride 100 mmol/L (98-107); EST Glomerular Filtration Rate 47 mL/min (>60); Est Glom Filt Rate - Afr Amer 56 mL/min (>60); Estimated Creatinine Clearance 50.33 ml/min; Glucose 105 mg/dL (74-106); Potassium 5.1 mmol/L (3.5-5.1); Sodium Level 133 mmol/L (136-145)
[2018-09-28] MEDS: Ondansetron 4 MG/2 ML Vial IV (17:12)
[2018-09-28] MEDS: Morphine 4 MG/ML Syringe IV ×2 (17:13→18:14)
[2018-09-28 17:26] LABS: Absolute Lymphocyte Count 1.01 X10^3/uL (0.83-4.51); Absolute Neutrophil Count 14.2 X10^3/uL (2.0-7.7); Basophil# 0.04 X10^3/uL; Basophil% 0.2 % (0-1); Eosinophil# 0.11 X10^3/uL; Eosinophils% 0.7 % (0-5); Hematocrit 34.5 % (40-54); Hemoglobin 11.5 g/dL (13.0-16.5); Lymphocyte # 1.01 X10^3/ul (4.0); Lymphocyte % 6.1 % (19-41); Mean Corp Hgb Conc 33.3 g/dL (32-36); Mean Corpuscular Volume 86.9 fL (80-94); Monocyte# 1.13 X10^3/uL; Monocyte% 6.8 % (0-10); NRBC Flagged by Analyzer 0 % (0-5); Neutrophil # 14.21 X10^3/uL (2.7-7.7); Neutrophil % 85.7 % (47-70); Platelet Count 335 K/mm3 (150-450); RBC Distribution Width CV 12.3 % (11.6-14.6); RBC Distribution Width SD 39.4 fl (35.1-43.9); Red Blood Count 3.97 M/mm3 (4.6-6.2); White Blood Count 16.6 K/mm3 (4.4-11.0)
[2018-09-28 18:17] LABS: Bacteria 0 SEEN /hpf (None Seen); Mucous, Urine 0 SEEN /hpf (<or=2+); Red Blood Cells-Urine 0 SEEN /hpf (0-5); White Blood Cells 0 SEEN /hpf (0-5)
[2018-09-28 18:31] LABS: Color, Urine Yellow (Yellow); Glucose, Dipstick Normal (Normal); Ketone-Dipstick Negative (Negative); Leukocyte Esterase-Dipstick Negative /ul (Negative); Nitrite-Dipstick Negative (Negative); Occult Blood-Urine Negative /ul (Negative); Protein-Dipstick Negative (Negative); Urine Bilirubin Dipstick Negative (Negative); Urine Clarity Sl. Cloudy (Clear); Urine Urobilinogen Normal (Normal)
--- NOTE | 2018-09-28 18:55 | US_ITS ---
STUDY: ABDOMINAL ULTRASOUND - RIGHT UPPER QUADRANT REASON FOR VISIT: Male, 63 years old. Right-sided pain for one day TECHNIQUE: Ultrasound evaluation of the right upper quadrant was performed with real-time and static tyler-scale imaging. TECHNICAL QUALITY: Adequate. COMPARISON: CT same day FINDINGS: Liver: The liver is measured is 24 cm on this ultrasound exam, but is shown to be 15 cm in length on concomitant CT exam. There is increased echogenicity consistent with fatty infiltration. The bile ducts are within normal limits. There is no demonstrated mass lesion. Gallbladder: The gallbladder is distended measuring 13 cm in length. The gallbladder wall measures 2.8 mm. There is a positive sonographic Crabtree's sign. There is no pericholecystic fluid. The gallbladder contains sludge and a single small stone. Common Bile Duct (C.B.D.): The common bile duct measures 4.8 mm. Pancreas: Normal size of the head, body and tail of the pancreas. There is normal echogenicity of the pancreas. There is no demonstrated pancreatic mass or cyst. Right Kidney: Normal size of the right kidney. The right kidney measures 12.7 x 7.7 x 6.8 cm. Normal renal cortex. The right cortex measures 2.3 cm. There is no demonstrated renal mass or cyst. There is no right hydronephrosis. Region of increased echogenicity is present between the liver and right kidney, compatible with angiomyolipoma better demonstrated on recent CT exam. US/Abdomen Limited IMPRESSION: Fatty liver. Distended gallbladder containing sludge and a single small stone. Normal common bile duct. Electronically Signed: Shad Hernandez MD at 21:21 EDT Tel , Service support ,
[2018-09-28 18:59] VITALS: BP 123/76; PULSE 72; RESP 18; O2SAT 94
[2018-09-28 18:59] LABS: Squamous Epithelial Cells - UA 0-5 SEEN /hpf (0-5)
[2018-09-28 19:24] LABS: AST(SGOT) 34 U/L (15-37); Alanine Aminotransfer ALT/SGPT 16 U/L (16-61); Albumin, Serum 3.4 g/dL (3.2-5.0); Alkaline Phosphatase 100 U/L (45-117); Bilirubin, Direct 0.05 mg/dL (0.00-0.30); Globulin 4.5 g/dL (2.2-4.2); Protein, Total 7.9 g/dL (6.4-8.2)
[2018-09-28 21:59] VITALS: BP 132/69; PULSE 69; RESP 20; O2SAT 92
[2018-09-28 23:31] VITALS: RESP 18
[2018-09-29] VITALS (12 sets, daily range): BP systolic 115–136; BP diastolic 44–75; PULSE 61–86; RESP 18–26; TEMP 36.6–36.9; O2SAT 89–93; BMI 44.1
[2018-09-29] MEDS: Morphine 4 MG/ML Syringe IV (00:46)
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
[2018-09-29] MEDS: Albuterol 2.5 MG/3 ML VIAL.NEB. INHALATION (02:15)
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
[2018-09-29 05:52] LABS: Absolute Lymphocyte Count 1.13 X10^3/uL (0.83-4.51); Absolute Neutrophil Count 8.4 X10^3/uL (2.0-7.7); Basophil# 0.05 X10^3/uL; Basophil% 0.5 % (0-1); Eosinophil# 0.18 X10^3/uL; Eosinophils% 1.7 % (0-5); Hematocrit 33.3 % (40-54); Hemoglobin 10.8 g/dL (13.0-16.5); Lymphocyte # 1.13 X10^3/ul (4.0); Lymphocyte % 10.5 % (19-41); Mean Corp Hgb Conc 32.4 g/dL (32-36); Mean Corpuscular Hgb 28.5 pg (27.0-32.0); Mean Corpuscular Volume 87.9 fL (80-94); Mean Platelet Vol. 10.2 fl (6.2-12.0); Monocyte# 0.94 X10^3/uL; Monocyte% 8.8 % (0-10); NRBC Flagged by Analyzer 0 % (0-5); Neutrophil # 8.36 X10^3/uL (2.7-7.7); Neutrophil % 77.9 % (47-70); Platelet Count 292 K/mm3 (150-450); RBC Distribution Width CV 12.4 % (11.6-14.6); RBC Distribution Width SD 39.8 fl (35.1-43.9); Red Blood Count 3.79 M/mm3 (4.6-6.2); White Blood Count 10.7 K/mm3 (4.4-11.0)
--- NOTE | 2018-09-29 05:55 | NM_ITS ---
CLINICAL: 63-year-old male with reported history of right upper quadrant abdominal pain. RADIONUCLIDE HEPATOBILIARY SCINTIGRAPHY COMPARISON: Abdominal ultrasound CT of the abdomen-pelvis reports 09/28/2018 FINDINGS: Following the intravenous administration of 8.0 mCi of 99m Tc Mebrofenin, hepatobiliary images reveal: 1. Relatively prompt and homogeneous radiopharmaceutical concentration is noted by a normal sized liver. No parenchymal defects are identified. 2. Gallbladder activity is identified at 30 minutes post radiopharmaceutical administration. 3. Small intestinal tract is observed at 18 minutes following tracer injection. 4. Washout of the radiopharmaceutical by the hepatic parenchyma appears qualitatively normal. NM/Hepatobilliary Imaging IMPRESSION: 1. NORMAL 99m Tc Mebrofenin hepatobiliary imaging examination. A. Visualization of the gallbladder within 60 minutes post radiopharmaceutical administration excludes acute cholecystitis with 97% certitude. (Tiffany le al, Nucl Med Page [employer] pg. 35, 1981). Electronically Signed: Fuentes Markham DO at 11:18 EDT Tel , Service support ,
[2018-09-29] MEDS: 0.9% NaCl IVPB Med Flush (250 mL) 15 ML IV (06:10)
[2018-09-29] MEDS: Heparin Injection (Vial) 5,000 UNIT/ML VIAL 5000 UNIT SC ×3 (06:10→22:51)
[2018-09-29] MEDS: Levothyroxine 150 MCG Tablet PO (06:10)
[2018-09-29 06:13] LABS: Anion Gap 8 (5-15); BUN 31 mg/dL (7-18); BUN/Creat Ratio 19.5 RATIO (10-20); Calcium,Total 8.3 mg/dL (8.5-10.1); Chloride 101 mmol/L (98-107); Creatinine, Serum 1.59 mg/dL (0.70-1.30); EST Glomerular Filtration Rate 47 mL/min (>60); Est Glom Filt Rate - Afr Amer 57 mL/min (>60); Estimated Creatinine Clearance 50.65 ml/min; Glucose 163 mg/dL (74-106); Potassium 4.1 mmol/L (3.5-5.1); Sodium Level 138 mmol/L (136-145)
[2018-09-29 06:50] LABS: Bedside Glucose 149 mg/dL (70-110)
[2018-09-29] MEDS: Budesonide Respules 0.5 MG/2 ML AMPUL.NEB. INHALATION ×2 (07:24→19:36)
--- NOTE | 2018-09-29 08:50 | PCM.PN.BLA ---
Progress Note No changes since I saw him for consultation this morning. He is still complaining of mild right upper quadrant pain when he moves. No pain at rest. No nausea or vomiting. White count has normalized. As the patient is high risk for surgery I would like to get a HIDA before surgery. I would like to make sure that this is warranted. Continue antibiotics and clear liquids today. I will make him n.p.o. after midnight and HIDA will take place tomorrow. If HIDA is positive I will take him for surgery tomorrow afternoon. Patrice George MD Pager: [facility] [address] [place] [address], [address] [place] [address] Office:
[2018-09-29] MEDS: Furosemide 40 MG Tablet PO ×2 (09:54→17:46)
[2018-09-29] MEDS: Spironolactone 25 MG Tablet PO ×2 (09:54→22:51)
[2018-09-29] MEDS: Ensure Clear 120 ML Liquid PO (09:54)
[2018-09-29] MEDS: Lisinopril 40 MG Tablet PO ×2 (09:55→22:50)
[2018-09-29] MEDS: Metolazone 2.5 MG Tablet PO (09:55)
[2018-09-29 11:30] LABS: Bedside Glucose 281 mg/dL (70-110)
[2018-09-29] MEDS: Insulin Lispro 100 UNIT/ML INSULN.PEN SC ×3 (11:32→22:52)
[2018-09-29] MEDS: oxyCODONE 5 MG Tablet PO (11:51)
--- NOTE | 2018-09-29 12:26 | PCM.HOSP.N ---
Hospitalist Note Pt admitted after MN this am. Stable from a medical standpoint. Plan is to check a HIDA scan in the am and then if the HIDA is + then pt to go to the OR in the afternoon. Will add basal insulin as BGT are elevated. Pt takes Levemir 40 u BID at home--> will half dose here and give 20 u BID and continue SSI with meals (CLD) for now. F/U lab ordered for the am along with PT/PTT. Pt is still having RUQ pain.
[2018-09-29] MEDS: Ipratropium/Albuterol Sulfate 3 ML AMPUL.NEB INHALATION ×2 (16:05→19:25)
[2018-09-29 16:26] LABS: Bedside Glucose 156 mg/dL (70-110)
[2018-09-29] MEDS: Atorvastatin Calcium 40 MG Tablet PO (22:50)
[2018-09-29 23:11] LABS: Bedside Glucose 193 mg/dL (70-110)
[2018-09-30] VITALS (10 sets, daily range): BP systolic 101–145; BP diastolic 44–69; PULSE 61–93; RESP 17–20; TEMP 36.8–37.2; O2SAT 90–97
[2018-09-30] MEDS: Ipratropium/Albuterol Sulfate 3 ML AMPUL.NEB INHALATION ×4 (01:01→19:05)
[2018-09-30] MEDS: Heparin Injection (Vial) 5,000 UNIT/ML VIAL 5000 UNIT SC ×3 (06:10→21:42)
[2018-09-30] MEDS: Levothyroxine 150 MCG Tablet PO (06:10)
[2018-09-30 06:41] LABS: Bedside Glucose 169 mg/dL (70-110)
[2018-09-30] MEDS: Insulin Lispro 100 UNIT/ML INSULN.PEN SC ×3 (06:45→21:43)
[2018-09-30] MEDS: Budesonide Respules 0.5 MG/2 ML AMPUL.NEB. INHALATION ×2 (06:57→19:05)
[2018-09-30 07:00] LABS: Absolute Neutrophil Count 6.2 X10^3/uL (2.0-7.7); Basophil# 0.03 X10^3/uL; Basophil% 0.4 % (0-1); Eosinophil# 0.22 X10^3/uL; Eosinophils% 2.7 % (0-5); Hematocrit 30.5 % (40-54); Hemoglobin 10.1 g/dL (13.0-16.5); Lymphocyte % 11.1 % (19-41); Mean Corp Hgb Conc 33.1 g/dL (32-36); Mean Corpuscular Hgb 28.3 pg (27.0-32.0); Mean Corpuscular Volume 85.4 fL (80-94); Mean Platelet Vol. 10.4 fl (6.2-12.0); Monocyte# 0.76 X10^3/uL; Monocyte% 9.3 % (0-10); NRBC Flagged by Analyzer 0 % (0-5); Neutrophil % 76.3 % (47-70); Platelet Count 275 K/mm3 (150-450); RBC Distribution Width CV 12.4 % (11.6-14.6); RBC Distribution Width SD 38.5 fl (35.1-43.9); Red Blood Count 3.57 M/mm3 (4.6-6.2); White Blood Count 8.1 K/mm3 (4.4-11.0)
[2018-09-30 07:18] LABS: International Normalized Ratio 1.1; Partial Thromboplast Time 33.3 Seconds (24.1-36.2); Prothrombin Time (Protime)PT. 14.1 SECONDS (11.7-14.9)
[2018-09-30 07:29] LABS: BUN 27 mg/dL (7-18); Creatinine, Serum 1.62 mg/dL (0.70-1.30); Glucose 167 mg/dL (74-106)
[2018-09-30 07:30] LABS: Anion Gap 6 (5-15); BUN/Creat Ratio 16.7 RATIO (10-20); Calcium,Total 8.4 mg/dL (8.5-10.1); Chloride 97 mmol/L (98-107); EST Glomerular Filtration Rate 46 mL/min (>60); Est Glom Filt Rate - Afr Amer 56 mL/min (>60); Estimated Creatinine Clearance 49.71 ml/min; Sodium Level 131 mmol/L (136-145)
--- NOTE | 2018-09-30 08:57 | PCM.PROGNOTE ---
Patient Problems: Active and Suspected Problems (Last Reviewed 09/29/18 @ 03:29 by Gabriel Novak MD) Acute right flank pain (Acute) Intractable pain (Acute) Cholelithiasis (Acute) Subjective: Zosyn day #2 The patient is a 63-year-old male with a past medical history of chronic diastolic congestive heart failure, stage III chronic renal failure, diabetes mellitus type 2, morbid obesity, hyperlipidemia, CAD, hypertension, chronic respiratory failure with hypoxemia, presence of tracheostomy, diastolic dysfunction, COPD, diverticulosis, esophageal dysmotility, colon polyps, hypothyroidism and history of laryngeal cancer treated in 2006 with surgery who presented to the emergency department at [facility] on 09/29/2018 complaining of right flank pain associated with nausea and vomiting. Vital signs at presentation to the emergency room were temperature 98.2, pulse rate 87, blood pressure 147/69, respiratory rate 20 and he was 95% saturated on room air. CBC showed a white blood cell count of 10.7 with 78% neutrophils. Hemoglobin was 10.8 with normochromic normocytic indices and the platelets were within normal limits. BMP was remarkable for an elevated BUN at 31 with a creatinine of 1.59 which is within his baseline creatinine. CT scan of the abdomen and pelvis showed no acute findings. Abdominal ultrasound showed fatty liver and a distended gallbladder containing sludge and a single small stone. The common bile duct appeared normal. He was admitted to the hospital and kept on a clear liquid diet. Dr. George was consulted and a HIDA scan has сергей ordered for today. Afebrile since admission. Vital signs are stable. He is 92 to 95% saturated on room air. And 94% on a trach collar. All lab was personally reviewed. White blood cell count is normal at 8.1 today with 76% neutrophils. Hemoglobin is 10.1 following hydration and platelets remain within normal limits. Sodium is low at 131 and the BUN today is 27 with a creatinine of 1.62. Blood sugars are adequately controlled. He denies nausea and has had no emesis today. HIDA scan was negative. Denies chest pain, shortness of breath, palpitations. - Physical Exam General: Alert, Oriented x3, Cooperative, No apparent distress Oral: Dry Mucosa Neck: Supple, No JVD Lungs: Clear to auscultation Cardiovascular: Regular rate, Regular Rhythm, Normal S1, Normal S2, No Gallop Abdomen: Bowel Sounds Present, Soft, Non Tender, Non-Distended Extremities: No clubbing, No cyanosis, No edema Skin: No rashes Neurological: Cranial nerves II-XII grossly intact, Facial Droop Psych/Mental Status: Normal Affect, Appropriate Vital Signs Temp Pulse Resp BP Pulse Ox 98.2 F 61 18 110/63 94 09/30/18 04:33 09/30/18 06:56 09/30/18 06:56 09/30/18 04:33 09/30/18 04:33 Oxygen Flow Rate (L/min) 6 Oxygen Delivery Method Trach Collar Weight: 316 lb 5.813 oz Body Mass Index (BMI) 44.1 Intake and Output for Last 24 Hours 09/28/18 09/29/18 09/30/18 23:59 23:59 23:59 Intake Total 2237.75 / 2937.75 958.25 / 958.25 Balance 2237.75 / 2937.75 958.25 / 958.25 Laboratory Tests Past 24 Hrs 09/30/18 09/30/18 09/30/18 06:30 06:30 06:30 WBC 8.1 RBC 3.57 L Hgb 10.1 L Hct 30.5 L MCV 85.4 MCH 28.3 MCHC 33.1 RDW Std Deviation 38.5 RDW Coeff of Alisson 12.4 Plt Count 275 MPV 10.4 Immature Gran % (Auto) 0.200 Neut % (Auto) 76.3 H Lymph % (Auto) 11.1 L [place] % (Auto) 9.3 Eos % (Auto) 2.7 Baso % (Auto) 0.4 Absolute Neuts (auto) 6.2 Absolute Lymphs (auto) 0.90 Nucleated RBC % 0 PT 14.1 INR 1.1 APTT 33.3 Sodium 131 L Potassium 4.0 Chloride 97 L Carbon Dioxide 28.0 Anion Gap 6 BUN 27 H Creatinine 1.62 H Estim Creat Clear Calc 49.71 Est GFR (MDRD) Af Amer 56 L Est GFR (MDRD) Non-Af 46 L BUN/Creatinine Ratio 16.7 Glucose 167 H Calcium 8.4 L POC Glucose 09/30/18 09/29/18 09/29/18 06:21 22:49 16:19 POC Glucose 169 H 193 H 156 H 09/29/18 11:27 POC Glucose 281 H Medical Necessity - Tobacco Use Smoking Status: Former smoker Assessment/Plan All Active Problems (Last Reviewed 09/29/18 @ 03:29 by Gabriel Novak MD) Gastroenteritis (Resolved) Metabolic acidosis (Resolved) Hyponatremia (Acute) Laryngeal cancer (Resolved) Acute right flank pain (Acute) Intractable pain (Acute) Cholelithiasis (Acute) Acute hypercapnic respiratory failure (Resolved) CAP (community acquired pneumonia) (Resolved) COPD with acute exacerbation (Resolved) Shortness of breath (Resolved) Impressions 1. N/V/abd pain with elevated WBC thought to be due to acute cholecystitis. Started on Zosyn. GB US showed sludge an a gallstone. HIDA scan negative. Diet advanced. If any increase in the pain or recurrent N/V will go for cholecystectomy tomorrow. If no exacerbation of SX with advance in diet will likely DC home on antibiotics and recommend he lose weight and be considered for elective cholecystectomy. D/W Dr. Syed. 2. Cholelithiasis 3. Hyponatremia-suspect secondary to nausea/vomiting/continue diuretic therapy. Hold Lasix, metolazone today and continue IV fluids. Recheck BMP in the a.m. 4. Diabetes mellitus type 2-not adequately controlled. Hemoglobin A1c is 9.0. Consult with the granulating blender ordered. Weight loss recommended. 5. Morbid obesity 6. History of Laryngeal CA - S/P surgical resection and tracheostomy. 7. Stage III chronic renal failure 8. Hyperlipidemia, CAD, hypertension, chronic respiratory failure with hypoxemia, diastolic dysfunction, COPD, diverticulosis, esophageal dysmotility, colon polyps, hypothyroidism-complicates care, management and prognosis. Code Visit Inpatient E&M: 43306 Subs Hosp L2
[2018-09-30 10:33] LABS: Magnesium 1.8 mg/dL (1.6-2.6); Phosphorus 3.9 mg/dL (2.5-4.9)
[2018-09-30] MEDS: 0.9% Normal Saline 1,000 ML 100 ML IV (11:42)
[2018-09-30] MEDS: 0.9% NaCl Peripheral Flush Adult/Peds IV (11:43)
[2018-09-30 11:55] LABS: Bedside Glucose 173 mg/dL (70-110)
--- NOTE | 2018-09-30 13:00 | PN.SURG_ITS ---
Patient Problems: Active and Suspected Problems (Last Reviewed 09/29/18 @ 03:29 by Gabriel Novak MD) Acute right flank pain (Acute) Intractable pain (Acute) Cholelithiasis (Acute) Subjective: Patient reports that his pain is improving. He had no nausea or vomiting overnight. - Physical Exam General: Alert, Oriented x3 Lungs: Clear to auscultation Cardiovascular: Regular rate, Regular Rhythm Abdomen: Soft, Non Tender, Non-Distended Lymphatic: No Cervical, Supraclavicular, or Inguinal Adenopathy Vital Signs Temp Pulse Resp BP Pulse Ox 98.4 F 70 18 113/69 90 09/30/18 11:43 09/30/18 11:43 09/30/18 11:43 09/30/18 11:43 09/30/18 11:43 Oxygen Flow Rate (L/min) 6 Oxygen Delivery Method Room Air Weight: 316 lb 5.813 oz Body Mass Index (BMI) 44.1 Intake and Output for Last 24 Hours 09/28/18 09/29/18 09/30/18 23:59 23:59 23:59 Intake Total 2237.75 / 2937.75 1016.58 / 1016.58 Balance 2237.75 / 2937.75 1016.58 / 1016.58 Laboratory Tests Past 24 Hrs 09/30/18 09/30/18 09/30/18 06:30 06:30 06:30 WBC 8.1 RBC 3.57 L Hgb 10.1 L Hct 30.5 L MCV 85.4 MCH 28.3 MCHC 33.1 RDW Std Deviation 38.5 RDW Coeff of Alisson 12.4 Plt Count 275 MPV 10.4 Immature Gran % (Auto) 0.200 Neut % (Auto) 76.3 H Lymph % (Auto) 11.[address] [place] % (Auto) 9.3 Eos % (Auto) 2.7 Baso % (Auto) 0.4 Absolute Neuts (auto) 6.2 Absolute Lymphs (auto) 0.90 Nucleated RBC % 0 PT 14.1 INR 1.1 APTT 33.3 Sodium 131 L Potassium 4.0 Chloride 97 L Carbon Dioxide 28.0 Anion Gap 6 BUN 27 H Creatinine 1.62 H Estim Creat Clear Calc 49.71 Est GFR (MDRD) Af Amer 56 L Est GFR (MDRD) Non-Af 46 L BUN/Creatinine Ratio 16.7 Glucose 167 H Hemoglobin A1c Calcium 8.4 L Phosphorus Magnesium 09/30/18 09/30/18 06:30 06:30 WBC RBC Hgb Hct MCV MCH MCHC RDW Std Deviation RDW Coeff of Alisson Plt Count MPV Immature Gran % (Auto) Neut % (Auto) Lymph % (Auto) [place] % (Auto) Eos % (Auto) Baso % (Auto) Absolute Neuts (auto) Absolute Lymphs (auto) Nucleated RBC % PT INR APTT Sodium Potassium Chloride Carbon Dioxide Anion Gap BUN Creatinine Estim Creat Clear Calc Est GFR (MDRD) Af Amer Est GFR (MDRD) Non-Af BUN/Creatinine Ratio Glucose Hemoglobin A1c 9.0 H Calcium Phosphorus 3.9 Magnesium 1.8 POC Glucose 09/30/18 09/30/18 09/29/18 11:49 06:21 22:49 POC Glucose 173 H 169 H 193 H 09/29/18 16:19 POC Glucose 156 H Clinical Impression(s) from Imaging Studies Hepatobiliary Scan Nuclear Medicine 09/29/18 05:55 IMPRESSION: 1. NORMAL 99m Tc Mebrofenin hepatobiliary imaging examination. A. Visualization of the gallbladder within 60 minutes post radiopharmaceutical administration excludes acute cholecystitis with 97% certitude. (Tiffany et al, Nucl Med Page [employer] pg. 35, 1980). Electronically Signed: Fuentes Markham DO at 11:18 EDT Tel , Service support , Medical Necessity - Tobacco Use Smoking Status: Former smoker Assessment/Plan All Active Problems (Last Reviewed 09/29/18 @ 03:29 by Gabriel Novak MD) Gastroenteritis (Resolved) Metabolic acidosis (Resolved) Hyponatremia (Acute) Laryngeal cancer (Resolved) Acute right flank pain (Acute) Intractable pain (Acute) Cholelithiasis (Acute) Acute hypercapnic respiratory failure (Resolved) CAP (community acquired pneumonia) (Resolved) COPD with acute exacerbation (Resolved) Shortness of breath (Resolved) 63-year-old male with abdominal and back pain 1. Patient's white count was normal again today. He reports no nausea or vomiting any says that his pain is improving. It is still in the lower back and some pain in the right upper quadrant but he says this is minor. He had a HIDA scan which was normal. At this time I recommend continue antibiotics but trying a diet. If he tolerates a diet I will discharge him home on oral antibiotics. If he does not tolerate diet I will plan for laparoscopic cholecystectomy tomorrow. Patient understands and is willing to proceed with this plan. I did offer the patient cholecystectomy at this time but he would like to try to avoid surgery if possible. I believe this is reasonable given his comorbidities and surgical risk. Patrice George MD Pager: [facility] [address] [place] [address], [address] [place] [address] Office:
--- NOTE | 2018-09-30 13:30 | CASEMGMT ---
RN CM Face to Face with patient for initial transition planning/care coordination assessment. RN CM introduced self and role at [facility]. Patient sitting on side of bed, alert and oriented, at bedside. Patient willing to participate in assessment and is able to answer all questions appropriately. Care providers, pharmacy, and demographics verified. Patient wishes to discharge home, denies need for home health at this time. Patient states he has no further needs or concerns at this time. CM to follow for discharge planning needs that may arise. PCP: January Specialists: Leighton vat operator; Cordell supervisor hot dip tinning Preferred Pharmacy: [facility] Insurance: [facility] Prescription Benefit: yes Living Will/HPOA: none LNOK: Living Arrangements: Patient lives with in a 1 story home with 4 steps to enter the home. Patient states he is independent at home. Transportation: DME/HHC: Patient states that he has nebulizer and oxygen at 4lpm at through [facility]. Patient denies previous HHC. Disposition Plan: Patient to discharge home with family support and follow-up plans in place. Hanna DURHAM, RN, CM
[2018-09-30 16:36] LABS: Bedside Glucose 260 mg/dL (70-110)
[2018-09-30] MEDS: Lisinopril 40 MG Tablet PO (21:42)
[2018-09-30] MEDS: Atorvastatin Calcium 40 MG Tablet PO (21:42)
[2018-09-30 22:05] LABS: Bedside Glucose 212 mg/dL (70-110)
[2018-10-01 00:50] VITALS: PULSE 67; RESP 26
[2018-10-01] MEDS: Ipratropium/Albuterol Sulfate 3 ML AMPUL.NEB INHALATION ×2 (00:50→07:36)
[2018-10-01 02:25] VITALS: BP 137/59; PULSE 69; RESP 18; TEMP 36.8; O2SAT 95
[2018-10-01] MEDS: Insulin Lispro 100 UNIT/ML INSULN.PEN SC ×2 (06:40→12:16)
[2018-10-01] MEDS: Heparin Injection (Vial) 5,000 UNIT/ML VIAL 5000 UNIT SC (06:40)
[2018-10-01] MEDS: Levothyroxine 150 MCG Tablet PO (06:40)
[2018-10-01 07:03] LABS: Anion Gap 5 (5-15); BUN 32 mg/dL (7-18); BUN/Creat Ratio 18.8 RATIO (10-20); Calcium,Total 7.9 mg/dL (8.5-10.1); Chloride 100 mmol/L (98-107); EST Glomerular Filtration Rate 43 mL/min (>60); Est Glom Filt Rate - Afr Amer 53 mL/min (>60); Estimated Creatinine Clearance 47.37 ml/min; Glucose 147 mg/dL (74-106); Potassium 3.9 mmol/L (3.5-5.1); Sodium Level 134 mmol/L (136-145)
[2018-10-01 07:36] VITALS: PULSE 62; RESP 18; O2SAT 94
[2018-10-01] MEDS: Budesonide Respules 0.5 MG/2 ML AMPUL.NEB. INHALATION (07:37)
[2018-10-01 07:41] LABS: Bedside Glucose 154 mg/dL (70-110)
[2018-10-01 07:46] LABS: Bedside Glucose 144 mg/dL (70-110)
--- NOTE | 2018-10-01 07:57 | PN.SURG_ITS ---
Patient Problems: Active and Suspected Problems (Last Reviewed 09/29/18 @ 03:29 by Gabriel Novak MD) Acute right flank pain (Acute) Intractable pain (Acute) Cholelithiasis (Acute) Subjective: Patient reports he tolerated a regular diet with no increase in pain. He had no nausea or vomiting. He did have some diarrhea. - Physical Exam General: Alert, Oriented x3, Cooperative Cardiovascular: Regular rate, Regular Rhythm Abdomen: Soft, Non Tender, Non-Distended Vital Signs Temp Pulse Resp BP Pulse Ox 98.2 F 69 18 137/59 H 95 10/01/18 02:25 10/01/18 02:25 10/01/18 02:25 10/01/18 02:25 10/01/18 02:25 Oxygen Flow Rate (L/min) 4 Oxygen Delivery Method Trach Collar Weight: 316 lb 5.813 oz Body Mass Index (BMI) 44.1 Intake and Output for Last 24 Hours 09/29/18 09/30/18 10/01/18 23:59 23:59 23:59 Intake Total 2237.75 / 2937.75 2364.91 / 2564.91 953.34 / 953.34 Balance 2237.75 / 2937.75 2364.91 / 2564.91 953.34 / 953.34 Laboratory Tests Past 24 Hrs 09/30/18 09/30/18 10/01/18 06:30 06:30 06:30 Sodium 134 L Potassium 3.9 Chloride 100 Carbon Dioxide 29.0 Anion Gap 5 BUN 32 H Creatinine 1.70 H Estim Creat Clear Calc 47.37 Est GFR (MDRD) Af Amer 53 L Est GFR (MDRD) Non-Af 43 L BUN/Creatinine Ratio 18.8 Glucose 147 H Hemoglobin A1c 9.0 H Calcium 7.9 L Phosphorus 3.9 Magnesium 1.8 POC Glucose 10/01/18 10/01/18 09/30/18 07:41 06:39 21:40 POC Glucose 144 H 154 H 212 H 09/30/18 09/30/18 16:28 11:49 POC Glucose 260 H 173 H Medical Necessity - Tobacco Use Smoking Status: Former smoker Assessment/Plan All Active Problems (Last Reviewed 09/29/18 @ 03:29 by Gabriel Novak MD) Gastroenteritis (Resolved) Metabolic acidosis (Resolved) Hyponatremia (Acute) Laryngeal cancer (Resolved) Acute right flank pain (Acute) Intractable pain (Acute) Cholelithiasis (Acute) Acute hypercapnic respiratory failure (Resolved) CAP (community acquired pneumonia) (Resolved) COPD with acute exacerbation (Resolved) Shortness of breath (Resolved) 63-year-old male with abdominal pain 1. Patient had a HIDA scan yesterday which showed filling of the gallbladder. His white count was normal yesterday as well. Patient tolerated regular diet yesterday with no increase in pain or nausea or vomiting. Recommend the patient be discharged home on a few more days of oral antibiotic and follow-up with me. Diet as tolerated. Patrice George MD Pager: [facility] [address] [place] [address] [address] [place] [address] Office:
[2018-10-01 08:35] VITALS: BP 136/55; PULSE 77; RESP 18; TEMP 36.9; O2SAT 90
[2018-10-01] MEDS: Lisinopril 40 MG Tablet PO (08:41)
--- NOTE | 2018-10-01 11:50 | PCM.DC ---
- Discharge Diagnoses Current Active Problems: Current Active and Chronic Problems (Last Reviewed 09/29/18 @ 03:29 by Gabriel Novak MD) Acute right flank pain (Acute) Intractable pain (Acute) Cholelithiasis (Acute) You will use the following diet at home:: Other - Resume previous diet. Blood sugars are not adequately controlled with a HGBA1C of 9.0.....it should be less than 7. You need to do better with controlling your carbohydrate intake and losing weight. The exploration driller's run a outpatient diabetic clinic and they can help you get better control of your blood sugars and to lose weight. All you need is a referral from your PCP. Low fat and low salt Discharge Activity: Return to Normal Activity Call your doctor if you observe: Fever of 101 or Higher, Inability to urinate, - - Recurrent nausea/vomiting/abdominal pain. Call your PCP if severe diarrhea ( > 5 stools a day), painful sores in the mouth, painful swallowing, rash or itching. Taking a probiotic such as Lactobacillus or Kefir can help with loose stools while taking antibiotics. Allergies/Adverse Reactions: Allergies No Known Allergies Allergy (Verified 09/28/18 16:21) Medications to take at Discharge Levothyroxine [Synthroid] 150 mcg PO DAILY 06/04/14 Atorvastatin Calcium [Lipitor] 40 mg PO QHS 04/12/17 Ipratropium/Albuterol Sulfate [Duoneb] 3 ml INHALATION Q6H PRN 04/12/17 Metolazone [Zaroxolyn] 2.5 mg PO DAILY 04/12/17 budesonide 0.25 mg/2 mL suspension for nebulization 2 ml INHALATION BID 07/18/18 furosemide 40 mg tablet 40 mg PO BID tab 07/18/18 dulaglutide 1.5 mg/0.5 mL subcutaneous pen injector 1.5 mg SC TU 07/23/18 Insulin Aspart [Novolog Flexpen] 10 unit SUBCUT LUNCH 09/29/18 Insulin Aspart [Novolog Flexpen] 10 units SUBCUT BREAKFAST 09/29/18 Insulin Aspart [Novolog Flexpen] 15 units SUBCUT DINNER 09/29/18 Insulin Detemir [Levemir FlexPen] 40 unit SUBCUT BID 09/29/18 Lisinopril [Zestril] 40 mg PO BID 09/29/18 Metformin HCl [Metformin ER Osmotic] 500 mg PO BID 09/29/18 Spironolactone 25 mg PO BID 09/29/18 Amoxicillin/Potassium Clav [Augmentin 250 Suspension] 10 ml PO Q8H #140 ml 10/01/18 Lactobacillus Acidophilus [Acidophilus] 1 ea PO BID #14 cap 10/01/18 The following prescriptions were given: Lactobacillus Acidophilus [Acidophilus] 1 ea PO BID #14 cap Prescription Printed Amoxicillin/Potassium Clav [Augmentin 250 Suspension] 10 ml PO Q8H #140 ml Prescription Printed Primary Care Physician: Chinmay Sin MD [Primary Care Provider] - Please follow up with your Primary Care Physician in: 1-2 weeks Test Results: Test results from this visit will be discussed in further detail at your follow-up appointment, if applicable. Please Follow Up With: Patrice George MD When: call the office for an appt Proposed Discharge Date: 10/01/18
[2018-10-01 11:51] LABS: Bedside Glucose 251 mg/dL (70-110)
--- NOTE | 2018-10-01 12:02 | PCM.DC.SUM ---
Discharge Date and Diagnosis Date of Admission: 09/29/18 Date of Discharge: 10/01/18 - Primary Discharge Diagnosis Active and Suspected Problems (Last Reviewed 09/29/18 @ 03:29 by Gabriel Novak MD) Cholecystitis (Suspected) Hyponatremia - Secondary Discharge Diagnosis Chronic Problems (Last Reviewed 09/29/18 @ 03:29 by Gabriel Novak MD) Chronic renal failure, stage 3 (moderate) (Chronic) Diastolic CHF (Chronic) Cholelithiasis (Chronic) Diabetes mellitus, type II (Chronic) Hyperlipidemia (Chronic) Atherosclerosis of coronary artery of [place] heart without angina pectoris (Chronic) Essential hypertension (Chronic) Hypoxemia (Chronic) History of diastolic dysfunction (Chronic) EF 55% with abnoraml relaxation on 06/05/14 COPD (chronic obstructive pulmonary disease) (Chronic) Hospital Course and Treatment Imaging Results: Clinical Impression(s) from Imaging Studies Abdomen/Pelvis CT 09/28/18 16:31 IMPRESSION: 1. No acute or focal findings, no change since prior. 2. No urinary calculi. Electronically Signed: Margi Cárdenas at 17:44 EDT Tel , Service support , Abdomen Ultrasound 09/28/18 18:55 IMPRESSION: Fatty liver. Distended gallbladder containing sludge and a single small stone. Normal common bile duct. Electronically Signed: Shad Hernandez MD at 21:21 EDT Tel , Service support , Hepatobiliary Scan Nuclear Medicine 09/29/18 05:55 IMPRESSION: 1. NORMAL 99m Tc Mebrofenin hepatobiliary imaging examination. A. Visualization of the gallbladder within 60 minutes post radiopharmaceutical administration excludes acute cholecystitis with 97% certitude. (Tiffany et al, Nucl Med Page [employer] pg. 35, 1980). Electronically Signed: Fuentes Markham DO at 11:18 EDT Tel , Service support , Dr. Patrice [facility]-[place] general [facility] Operations: None Procedures: None Summary of Care Provided: The patient is a 63-year-old male with a past medical history of chronic diastolic congestive heart failure, stage III chronic renal failure, diabetes mellitus type 2, morbid obesity, hyperlipidemia, CAD, hypertension, chronic respiratory failure with hypoxemia, presence of tracheostomy, diastolic dysfunction, COPD, diverticulosis, esophageal dysmotility, colon polyps, hypothyroidism and history of laryngeal cancer treated in 2007 with surgery who presented to the emergency department at [facility] on 09/29/2018 complaining of right flank pain associated with nausea and vomiting. Vital signs at presentation to the emergency room were temperature 98.2, pulse rate 87, blood pressure 147/69, respiratory rate 20 and he was 95% saturated on room air. CBC showed a white blood cell count of 10.7 with 78% neutrophils. Hemoglobin was 10.8 with normochromic normocytic indices and the platelets were within normal limits. BMP was remarkable for an elevated BUN at 31 with a creatinine of 1.59 which is within his baseline creatinine. CT scan of the abdomen and pelvis showed no acute findings. Abdominal ultrasound showed fatty liver and a distended gallbladder containing sludge and a single small stone. The common bile duct appeared normal. He was admitted to the hospital and kept on a clear liquid diet. He was kept on Zosyn. Dr. George was consulted and a HIDA scan was ordered and was negative. He felt better and tolerated low fat diet without recurrence of nausea, vomiting, abdominal pain. He was afebrile throughout his hospital stay. White blood cell count was 16.6 at admission and less than 24 hours later was normal at 10.7. He was discharged home on Augmentin to complete 7 days of treatment for suspected cholecystitis. He will follow-up with Dr. Sin in the office in 1 to 2 weeks and will also follow-up with Dr. George. If he has recurrent nausea/vomiting/abdominal pain/fevers he will return to the emergency room or call Dr. George and cholecystectomy will be scheduled. PHYSICAL EXAM: GENERAL: alert, oriented X 3, Cooperative, NAD ORAL: moist mucosa, no mucosal lesions NECK: No JVD, supple, trachea midline, tracheostomy site is without purulent discharge or erythema LUNGS: CTA, symmetric chest expansion HEART: RRR, Normal S1 and S2, no rub, no gallop ABDOMEN: soft, NT, ND, BS present, no guarding with palpation EXTREMITIES: no edema, no cyanosis, no calf tenderness SKIN: No rashes, no breakdown NEUROLOGIC: no focal neurologic deficits PSYCH: appropriate, normal affect, pleasant This note was generated with [employer] dictation software. It may contain incorrect words, spelling, and punctuation that were not noted in checking the note before signing. - Physical Exam Vital Signs Temp Pulse Resp BP Pulse Ox 98.5 F 77 18 136/55 H 90 10/01/18 08:35 10/01/18 08:35 10/01/18 08:35 10/01/18 08:35 10/01/18 08:35 Oxygen Flow Rate (L/min) 4 Oxygen Delivery Method Room Air Weight: 316 lb 5.813 oz Body Mass Index (BMI) 44.1 Intake and Output for Last 24 Hours 09/29/18 09/30/18 10/01/18 23:59 23:59 23:59 Intake Total 2237.75 / 2937.75 2364.91 / 2564.91 1003.34 / 1003.34 Balance 2237.75 / 2937.75 2364.91 / 2564.91 1003.34 / 1003.34 Laboratory Tests Past 24 Hrs 10/01/18 06:30 Sodium 134 L Potassium 3.9 Chloride 100 Carbon Dioxide 29.0 Anion Gap 5 BUN 32 H Creatinine 1.70 H Estim Creat Clear Calc 47.37 Est GFR (MDRD) Af Amer 53 L Est GFR (MDRD) Non-Af 43 L BUN/Creatinine Ratio 18.8 Glucose 147 H Calcium 7.9 L POC Glucose 10/01/18 10/01/18 10/01/18 11:38 07:41 06:39 POC Glucose 251 H 144 H 154 H 09/30/18 09/30/18 21:40 16:28 POC Glucose 212 H 260 H Discharge Activity: Return to Normal Activity Call your doctor if you observe: Fever of 101 or Higher, Inability to urinate, - - Recurrent nausea/vomiting/abdominal pain. Call your PCP if severe diarrhea ( > 5 stools a day), painful sores in the mouth, painful swallowing, rash or itching. Taking a probiotic such as Lactobacillus or Kefir can help with loose stools while taking antibiotics. Home Medications: Medications to take at Discharge Levothyroxine [Synthroid] 150 mcg PO DAILY 06/04/14 Atorvastatin Calcium [Lipitor] 40 mg PO QHS 04/12/17 Ipratropium/Albuterol Sulfate [Duoneb] 3 ml INHALATION Q6H PRN 04/12/17 Metolazone [Zaroxolyn] 2.5 mg PO DAILY 04/12/17 budesonide 0.25 mg/2 mL suspension for nebulization 2 ml INHALATION BID 07/18/18 furosemide 40 mg tablet 40 mg PO BID tab 07/18/18 dulaglutide 1.5 mg/0.5 mL subcutaneous pen injector 1.5 mg SC TU 07/23/18 Insulin Aspart [Novolog Flexpen] 10 unit SUBCUT LUNCH 09/29/18 Insulin Aspart [Novolog Flexpen] 10 units SUBCUT BREAKFAST 09/29/18 Insulin Aspart [Novolog Flexpen] 15 units SUBCUT DINNER 09/29/18 Insulin Detemir [Levemir FlexPen] 40 unit SUBCUT BID 09/29/18 Lisinopril [Zestril] 40 mg PO BID 09/29/18 Metformin HCl [Metformin ER Osmotic] 500 mg PO BID 09/29/18 Spironolactone 25 mg PO BID 09/29/18 Amoxicillin/Potassium Clav [Augmentin 250 Suspension] 10 ml PO Q8H #140 ml 10/01/18 Lactobacillus Acidophilus [Acidophilus] 1 ea PO BID #14 cap 10/01/18 Following Prescrptions Were Given to Patient: Lactobacillus Acidophilus [Acidophilus] 1 ea PO BID #14 cap Prescription Printed Amoxicillin/Potassium Clav [Augmentin 250 Suspension] 10 ml PO Q8H #140 ml Prescription Printed Primary Care Physician: Chinmay Sin MD [Primary Care Provider] - Please follow up with your Primary Care Physician in: 1-2 weeks Please Follow Up With: Patrice George MD When: call the office for an appt Disposition: Home Minutes spent on discharge:: 30 Patient Condition:: Good Medical Necessity - Tobacco Use Smoking Status: Former smoker Tobacco Use: Non-smoker Meaningful Use Info Meaningful Use Diagnoses (Choose all that apply): None applicable Code Visit Inpatient E&M: 166[address] [facility]
[2018-10-01 12:30] VITALS: BP 137/64; PULSE 67; RESP 18; TEMP 36.8; O2SAT 96
[2018-10-01 14:15] VITALS: BP 137/64; PULSE 67; RESP 18; TEMP 36.8; O2SAT 96
--- NOTE | 2018-10-02 16:15 | CASEMGMT ---
ANUSHA EDGAR DC PHONE CALL DC DATE: 10.01.18 DC Disposition: Home Diagnosis on Discharge: Home LACE/STRATA: 12/08 Intro role of CM to patient via phone. Pt states he is not feeling much better, however no specific symptoms. Pt has appt next week with PCP. ANUSHA EDGAR discussed calling physician for earlier appt tomorrow if he still is not feeling improved. No questions re: medications, including antibiotic. No questions re: instructions and pt stated he will call physician if not improved tomorrow. Rebecca BUTTSN RN ACM
== END 2018-10-01 14:15 | disposition home or self-care (01) | DRG 445 ==
LOC: ED 09-29 00:20 → MS3 09-29 00:52
PROVIDERS: Internal Medicine; Admitting Provider Hospitalist; Emergency Provider Emergency Medicine; Family Provider Family Medicine; PCP Family Medicine; Visit Provider Internal Medicine
DX: K80.10 Calculus of gallbladder with chronic cholecystitis without obstruction (principal); Z68.41 Body mass index [BMI] 40.0-44.9, adult; I13.0 Hypertensive heart and chronic kidney disease with heart failure and stage 1 through stage 4 chronic kidney disease, or unspecified chronic kidney disease; I50.32 Chronic diastolic (congestive) heart failure; J96.11 Chronic respiratory failure with hypoxia; E87.1 Hypo-osmolality and hyponatremia; Z93.0 Tracheostomy status; Z85.21 Personal history of malignant neoplasm of larynx; Z90.02 Acquired absence of larynx; E66.01 Morbid (severe) obesity due to excess calories; Z79.4 Long term (current) use of insulin; E78.5 Hyperlipidemia, unspecified; E89.0 Postprocedural hypothyroidism; Z90.49 Acquired absence of other specified parts of digestive tract; N18.3 Chronic kidney disease, stage 3 (moderate); E11.22 Type 2 diabetes mellitus with diabetic chronic kidney disease; I25.10 Atherosclerotic heart disease of native coronary artery without angina pectoris; E11.65 Type 2 diabetes mellitus with hyperglycemia; Z87.891 Personal history of nicotine dependence; J44.9 Chronic obstructive pulmonary disease, unspecified
CPT/HCPCS: 36415; 74176; 76705; 78226; 80048; 80076; 81001; 82962; 83036; 83735; 84100; 85025; 85610; 85730; 94640; 97162; 97165; 97802; 99285; A9537; J7030; J7050; A4216; J2405

== ENCOUNTER 2019-03-12 13:31 | Emergency (ER) | payer MEDICARE, SELFPAY ==
[2018-10-08 09:22] VITALS: BMI 44.1
[2019-03-12 13:32] VITALS: BP 168/84; PULSE 61; RESP 32; TEMP 36.8; O2SAT 96; BMI 47.0
--- NOTE | 2019-03-12 13:39 | EKG12_ITS ---
Test Reason : CP Blood Pressure : / mmHG Vent. Rate : 090 BPM Atrial Rate : 090 BPM P-R Int : 184 ms QRS Dur : 076 ms QT Int : 352 ms P-R-T Axes : 061 049 112 degrees QTc Int : 430 ms Sinus rhythm with frequent and consecutive Premature ventricular complexes Low voltage QRS Nonspecific ST and T wave abnormality Abnormal ECG Confirmed by ELIN CHENG, LUIS ([id number]), metropolitan editor LAM HARDY ([id number]) on 03/17/2019 10:34:00 AM Referred By: LAURA Confirmed By:MARGE WORTHINGTON MD
--- NOTE | 2019-03-12 13:42 | RAD_ITS ---
STUDY: X-RAY CHEST REASON FOR EXAM: Male, 64 years old. CHEST/BACK PAIN, SOB; -- COPD, H/O LARYNGEAL CA, TRACHEOSTOMY TECHNIQUE: Single AP portable view of the chest. COMPARISON: Comparison is made with prior examination dated August 04, 2018. FINDINGS: EKG electrodes are seen. Hyperinflation. Stable mild increased linear markings at the lung bases suggestive of scarring. There is no demonstrated pleural abnormality. Normal size heart. Normal mediastinum and laura. Normal visualized pulmonary arteries. There is atherosclerotic calcification of the aortic arch with tortuosity. There are diffuse degenerative changes of the visualized thoracic spine. Normal visualized ribs, clavicles, and shoulders. There is no demonstrated abnormality of the visualized soft tissue structures of the upper abdomen. RAD/Chest 1 View (Portable) IMPRESSION: Hyperinflation. Findings suggestive of mild scarring at the lung bases. Electronically Signed: Tashi Lipscomb, at 14:10 EST , Service support ,
--- NOTE | 2019-03-12 13:57 | ED.DCSUM_ITS ---
- ER Visit Summary Date of Service: 03/12/19 Chief Complaint: Shortness of breath with cough of brown sputum History of Present Illness: The patient is a 64 M history of COPD on nighttime O2, insulin-dependent diabetes, hypertension, renal insufficiency, anemia and prior laryngeal CA for which she is had a tracheostomy for about 12 years. He states for the last week he has had shortness of breath with productive brown sputum. No hemoptysis. He has burning chest pain with coughing. Denies any cardiac disease or stents. No history of DVT or PE. No hemoptysis. No new leg pain or swelling. Physical Examination: Older male vital signs are stable and afebrile with a pulse ox 96% on room air. H EENT exam unremarkable. Neck nontender. Tracheostomy patent. Neck nontender no lymphadenopathy. Lungs coarse breath sounds bilaterally. Few scattered expiratory wheezes. No rales rhonchi. Heart regular rhythm rate about 60 no murmur. Chest were nontender. Abdomen obese but soft nontender normal bowel sounds no peritoneal signs. No distention. Remedies moves all 4. Trace edema both lower extremities. Calves are nontender. 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 Neurologically is awake and alert with no focal motor deficits. Test Results: Chest x-ray shows chronic changes no acute process read both by myself and the radiologist. 2 views. CBC shows a white count 13.2 hemoglobin 10.9 which is his baseline chronic anemia. No bands. Electrolytes unremarkable creatinine 1.2. Normal gap. Glucose 159. Troponin normal. EKG normal sinus rhythm rate of 90 with PVCs unchanged from a prior. Emergency Department Course and Treatment: Patient be treated with DuoNeb and albuterol aerosols. He wants me to try to hold off on steroids due to it really causes him problems with elevated blood sugars. Undergo cardiac work-up. Clinically however I think this is acute exacerbation of COPD with either bronchitis or possible pneumonia Treatment Plan: Repeat exam the patient is doing much better at 1615 p.m. Much better air movement after the aerosols. He is comfortable being discharged home. Patient is reluctant to use prednisone due to his blood sugars. I will write him a prescription he can use it as needed for wheezing. Otherwise he has a nebulizer at home. Follow-up with his primary care physician. Return if worse. Disposition: discharge Impression: Acute dyspnea Acute exacerbation COPD History of diabetes and prior tracheostomy This note was generated with [employer] dictation software. It may contain incorrect words, spelling, and punctuation that were not noted in review of the chart prior to signing ED Disposition - Plan for ED Patient: Referrals: Chinmay Sin MD [Primary Care Provider] -
[2019-03-12 14:07] LABS: Basophil# 0.04 X10^3/uL; Basophil% 0.3 % (0-1); Eosinophil# 0.12 X10^3/uL; Eosinophils% 0.9 % (0-5); Hematocrit 34.4 % (40-54); Hemoglobin 10.9 g/dL (13.0-16.5); Lymphocyte % 6.8 % (19-41); Mean Corp Hgb Conc 31.7 g/dL (32-36); Mean Corpuscular Hgb 28.5 pg (27.0-32.0); Mean Corpuscular Volume 90.1 fL (80-94); Mean Platelet Vol. 10.2 fl (6.2-12.0); Monocyte# 1.12 X10^3/uL; Monocyte% 8.5 % (0-10); NRBC Flagged by Analyzer 0 % (0-5); Neutrophil # 10.99 X10^3/uL (2.7-7.7); Neutrophil % 83.2 % (47-70); Platelet Count 266 K/mm3 (150-450); RBC Distribution Width CV 12.2 % (11.6-14.6); RBC Distribution Width SD 39.7 fl (35.1-43.9); Red Blood Count 3.82 M/mm3 (4.6-6.2); White Blood Count 13.2 K/mm3 (4.4-11.0)
[2019-03-12] MEDS: Ipratropium/Albuterol Sulfate 3 ML AMPUL.NEB INHALATION (14:24)
[2019-03-12] MEDS: Albuterol 2.5 MG/3 ML VIAL.NEB. INHALATION (14:24)
[2019-03-12 14:26] LABS: Anion Gap 4 (5-15); BUN 20 mg/dL (7-18); BUN/Creat Ratio 16.7 RATIO (10-20); Calcium,Total 8.8 mg/dL (8.5-10.1); Chloride 103 mmol/L (98-107); EST Glomerular Filtration Rate 65 mL/min (>60); Est Glom Filt Rate - Afr Amer 78 mL/min (>60); Estimated Creatinine Clearance 66.24 ml/min; Glucose 159 mg/dL (70-110); Potassium 4.5 mmol/L (3.5-5.1); Sodium Level 138 mmol/L (136-145)
[2019-03-12 14:28] VITALS: PULSE 85; RESP 30
[2019-03-12 14:58] VITALS: BP 147/60; PULSE 94; RESP 22; O2SAT 100; O2SAT 99
--- NOTE | 2019-03-12 16:24 | ED.DEP ---
ED Disposition - Plan for ED Patient: Disposition: Home or Assisted Living Instructions: Copd Flare Prescriptions: Prednisone [Deltasone] 40 mg PO DAILY 7 Days #7 tab Prescription Printed Referrals: Chinmay Sin MD [Primary Care Provider] - 3-5 Days if not improving Additional Instructions: Use your nebulizer as needed. Follow-up with your doctor if not improving return to the ER feeling worse. Watch her blood sugars closely. Prednisone as needed.
[2019-03-12 16:41] VITALS: BP 156/83; PULSE 92; RESP 29; O2SAT 93
== END 2019-03-12 16:42 | disposition home or self-care (01) ==
PROVIDERS: Emergency Provider Emergency Medicine; PCP Family Medicine
DX: J44.1 Chronic obstructive pulmonary disease with (acute) exacerbation (principal); E11.9 Type 2 diabetes mellitus without complications; Z79.4 Long term (current) use of insulin; Z99.81 Dependence on supplemental oxygen; Z85.21 Personal history of malignant neoplasm of larynx; Z93.0 Tracheostomy status
CPT/HCPCS: 71045; 80048; 84484; 85025; 93005; 94640; 99251; 99284; A4216; G0463

== ENCOUNTER → 2019-11-20 15:14 | Outpatient (CLI) | payer MEDICARE, SELFPAY ==
[2019-10-27 13:37] VITALS: BMI 42.5
[2019-11-20 16:28] LABS: Albumin, Serum 3.4 g/dL (3.2-5.0); BUN 46 mg/dL (7-18); BUN/Creat Ratio 28.2 RATIO (10-20); Calcium,Total 8.5 mg/dL (8.5-10.1); Chloride 104 mmol/L (98-107); Creatinine, Serum 1.63 mg/dL (0.70-1.30); EST Glomerular Filtration Rate 45 mL/min (>60); Est Glom Filt Rate - Afr Amer 55 mL/min (>60); Glucose 117 mg/dL (74-106); Phosphorus 3.7 mg/dL (2.5-4.9); Potassium 5.2 mmol/L (3.5-5.1); Sodium Level 136 mmol/L (136-145)
== END ==
PROVIDERS: PCP Family Medicine; Referring Provider Internal Medicine Nephrology; Visit Provider Internal Medicine Nephrology
DX: N18.32 Chronic kidney disease, stage 3b (principal)
CPT/HCPCS: 36415; 80069

== ENCOUNTER → 2019-12-15 11:59 | Outpatient (CLI) | payer MEDICARE, SELFPAY ==
[2019-10-27 13:37] VITALS: BMI 42.5
[2019-12-15 12:35] LABS: Hemoglobin 10.3 g/dL (13.0-16.5); Mean Corp Hgb Conc 31.2 g/dL (32-36); Mean Corpuscular Hgb 28.4 pg (27.0-32.0); Mean Corpuscular Volume 90.9 fL (80-94); Mean Platelet Vol. 9.9 fl (6.2-12.0); Platelet Count 311 K/mm3 (150-450); RBC Distribution Width CV 12.7 % (11.6-14.6); RBC Distribution Width SD 42.2 fl (35.1-43.9); Red Blood Count 3.63 M/mm3 (4.6-6.2); White Blood Count 9.4 K/mm3 (4.4-11.0)
[2019-12-15 13:14] LABS: PTHIN 231.2 pg/mL (18.4-80.1)
[2019-12-15 14:00] LABS: Albumin, Serum 3.4 g/dL (3.2-5.0); BUN 53 mg/dL (7-18); BUN/Creat Ratio 29.3 RATIO (10-20); Calcium,Total 8.4 mg/dL (8.5-10.1); Chloride 104 mmol/L (98-107); Creatinine, Serum 1.81 mg/dL (0.70-1.30); EST Glomerular Filtration Rate 40 mL/min (>60); Est Glom Filt Rate - Afr Amer 49 mL/min (>60); Ferritin 94 ng/mL (26-388); Glucose 171 mg/dL (74-106); Iron 49 ug/dL (65-175); Iron Binding Capacity,Total 269 ug/dL (250-450); Phosphorus 4.1 mg/dL (2.5-4.9); Potassium 4.8 mmol/L (3.5-5.1); Sodium Level 137 mmol/L (136-145)
== END ==
PROVIDERS: PCP Family Medicine; Referring Provider Internal Medicine Nephrology; Visit Provider Internal Medicine Nephrology
DX: N18.32 Chronic kidney disease, stage 3b (principal); D64.9 Anemia, unspecified
CPT/HCPCS: 36415; 80069; 82728; 83540; 83550; 83970; 85027

== ENCOUNTER → 2020-02-17 13:14 | Outpatient (CLI) | payer MEDICARE, SELFPAY ==
[2019-10-27 13:37] VITALS: BMI 42.5
[2020-02-17 13:53] LABS: Albumin, Serum 3.5 g/dL (3.2-5.0); BUN 26 mg/dL (7-18); BUN/Creat Ratio 17.6 RATIO (10-20); Calcium,Total 8.4 mg/dL (8.5-10.1); Chloride 104 mmol/L (98-107); Creatinine, Serum 1.48 mg/dL (0.70-1.30); EST Glomerular Filtration Rate 51 mL/min (>60); Est Glom Filt Rate - Afr Amer 61 mL/min (>60); Glucose 168 mg/dL (74-106); Phosphorus 3.1 mg/dL (2.5-4.9); Potassium 4.7 mmol/L (3.5-5.1); Sodium Level 137 mmol/L (136-145)
== END ==
PROVIDERS: PCP Family Medicine; Referring Provider Internal Medicine Nephrology; Visit Provider Internal Medicine Nephrology
DX: N18.32 Chronic kidney disease, stage 3b (principal)
CPT/HCPCS: 36415; 80069

== ENCOUNTER → 2020-05-05 14:50 | Outpatient (CLI) | payer MEDICARE, SELFPAY ==
[2020-05-05 13:42] VITALS: BMI 47.4
[2020-05-05 16:03] LABS: Anion Gap 5 (5-15); BNP,B-Type NATRIURETIC PEPTIDE 21.7 pg/mL (0-100); BUN 36 mg/dL (7-18); BUN/Creat Ratio 20.7 RATIO (10-20); Calcium,Total 8.1 mg/dL (8.5-10.1); Chloride 102 mmol/L (98-107); Creatinine, Serum 1.74 mg/dL (0.70-1.30); EST Glomerular Filtration Rate 42 mL/min (>60); Est Glom Filt Rate - Afr Amer 51 mL/min (>60); Glucose 126 mg/dL (74-106); Potassium 5.3 mmol/L (3.5-5.1); Sodium Level 137 mmol/L (136-145)
== END ==
PROVIDERS: PCP Family Medicine; Referring Provider Nurse Practitioner Family; Visit Provider Nurse Practitioner Family
DX: I50.30 Unspecified diastolic (congestive) heart failure (principal); R06.00 Dyspnea, unspecified; E78.5 Hyperlipidemia, unspecified; I25.10 Atherosclerotic heart disease of native coronary artery without angina pectoris; J44.9 Chronic obstructive pulmonary disease, unspecified
CPT/HCPCS: 36415; 80048; 83880

== ENCOUNTER → 2020-07-13 11:25 | Outpatient (CLI) | payer MEDICARE, SELFPAY ==
[2019-10-27 13:37] VITALS: BMI 42.5
[2020-05-26 09:46] VITALS: BMI 47.7
[2020-07-13 12:33] LABS: Hematocrit 32.9 % (40-54); Hemoglobin 10.4 g/dL (13.0-16.5); Mean Corp Hgb Conc 31.6 g/dL (32-36); Mean Corpuscular Hgb 28.3 pg (27.0-32.0); Mean Corpuscular Volume 89.4 fL (80-94); Mean Platelet Vol. 10.2 fl (6.2-12.0); Platelet Count 294 K/mm3 (150-450); RBC Distribution Width CV 12.1 % (11.6-14.6); RBC Distribution Width SD 39.8 fl (35.1-43.9); Red Blood Count 3.68 M/mm3 (4.6-6.2); White Blood Count 10.8 K/mm3 (4.4-11.0)
[2020-07-13 12:56] LABS: Albumin, Serum 3.5 g/dL (3.2-5.0); BUN 31 mg/dL (7-18); BUN/Creat Ratio 16.3 RATIO (10-20); Calcium,Total 8.6 mg/dL (8.5-10.1); Chloride 102 mmol/L (98-107); EST Glomerular Filtration Rate 38 mL/min (>60); Est Glom Filt Rate - Afr Amer 46 mL/min (>60); Ferritin 116 ng/mL (26-388); Glucose 183 mg/dL (74-106); Iron 76 ug/dL (65-175); Iron Binding Capacity,Total 267 ug/dL (250-450); Phosphorus 3.5 mg/dL (2.5-4.9); Potassium 5.3 mmol/L (3.5-5.1); Sodium Level 137 mmol/L (136-145)
== END ==
PROVIDERS: PCP Family Medicine; Referring Provider Internal Medicine Nephrology; Visit Provider Internal Medicine Nephrology
DX: D50.9 Iron deficiency anemia, unspecified (principal); N18.32 Chronic kidney disease, stage 3b
CPT/HCPCS: 36415; 80069; 82728; 83540; 83550; 85027

== ENCOUNTER → 2020-09-02 12:06 | Outpatient (CLI) | payer MEDICARE, SELFPAY ==
[2020-05-26 09:46] VITALS: BMI 47.7
--- NOTE | 2020-09-02 12:08 | CT_ITS ---
STUDY: LOW DOSE CT LUNG CANCER SCREENING REASON FOR EXAM: Male, 65 years old. 1 pack per day smoker x40 years. Quit in 2008 RADIATION DOSAGE (If Supplied By Facility): CTDIvol = ( 5.73 ) mGy, DLP = ( 208.72 ) mGycm TECHNIQUE: No contrast was administered. Low dose technique was utilized (average mAS-38 and kVp 120). 1.25 mm axial source images with a slice interval of 1.25-mm were reconstructed in lung windows. 2.5 mm axial source images with a slice interval of 2.5-mm were reconstructed in lung windows. 5.0 mm axial source images with a slice interval of 5.0-mm were reconstructed in soft tissue windows. Nodule measured using lung windows on PACS and/or independent workstation with automated measurement of minimum and maximum diameter. Nodule measurement reported as average diameter rounded to the nearest whole number. Growth is defined as an increase ins size of greater than 1.5 mm. COMPARISON: Previous plain film FINDINGS: Lung windows show chronic interstitial changes in both lung pal with scattered areas of groundglass opacification suggesting small airways inflammation and a pleural-based noncalcified 7 mm nodule in the left lower lobe. There is no organized infiltrate or effusion. There is lingular atelectasis likely from a prominent cardiac fat pad. No suspicious adenopathy. Peripheral calcifications noted in the thoracic aorta and in multiple coronary vessels. Total lung nodules (excluding granulomas): 1 CT/Low Dose CT Lung Screening IMPRESSION: Lung-RADS category 3 - Continue screening with LDCT in 6 months. IMPORTANT NOTES FOR USE: ACR Lung-RADS Version 1.1 Assessment Categories Release Date: 2018 Category: Coded 0-4 bases on nodule(s) with highest degree of suspicion. Negative screen is defined as categories 1 and 2; a positive screen is defined as categories 3 and 4. Category 3 and 4A nodules that are unchanged on interval CT should be coded as category 2, and individuals returned to screening in 12 months. Category 4X: Category 3 or 4 nodules with additional imaging findings that increase the suspicion of lung cancer, such as spiculation, GGN that doubles in size in 1 year, enlarged lymph notes, etc. Category Modifiers: S (significant finding unrelated to lung cancer) Electronically Signed: Roderick Tamayo MD at 8:35 EDT , Service support ,
== END ==
PROVIDERS: PCP Family Medicine; Referring Provider Family Medicine; Visit Provider Family Medicine
DX: Z12.2 Encounter for screening for malignant neoplasm of respiratory organs (principal); Z87.891 Personal history of nicotine dependence
CPT/HCPCS: 71271

== ENCOUNTER → 2020-10-01 13:35 | Outpatient (CLI) | payer MEDICARE, SELFPAY ==
[2020-05-26 09:46] VITALS: BMI 47.7
[2020-10-01 15:11] LABS: Albumin, Serum 3.6 g/dL (3.2-5.0); BUN 45 mg/dL (7-18); BUN/Creat Ratio 26.6 RATIO (10-20); Calcium,Total 8.9 mg/dL (8.5-10.1); Chloride 101 mmol/L (98-107); Creatinine, Serum 1.69 mg/dL (0.70-1.30); EST Glomerular Filtration Rate 43 mL/min (>60); Est Glom Filt Rate - Afr Amer 53 mL/min (>60); Glucose 106 mg/dL (74-106); Phosphorus 3.5 mg/dL (2.5-4.9); Potassium 4.7 mmol/L (3.5-5.1); Sodium Level 137 mmol/L (136-145)
== END ==
PROVIDERS: PCP Family Medicine; Referring Provider Internal Medicine Nephrology; Visit Provider Internal Medicine Nephrology
DX: N18.32 Chronic kidney disease, stage 3b (principal)
CPT/HCPCS: 36415; 80069

== ENCOUNTER → 2020-11-17 13:46 | Outpatient (CLI) | payer MEDICARE, SELFPAY ==
[2020-11-17 15:14] LABS: Hematocrit 33.4 % (40-54); Hemoglobin 10.8 g/dL (13.0-16.5); Mean Corp Hgb Conc 32.3 g/dL (32-36); Mean Corpuscular Hgb 28.6 pg (27.0-32.0); Mean Corpuscular Volume 88.4 fL (80-94); Mean Platelet Vol. 9.8 fl (6.2-12.0); Platelet Count 338 K/mm3 (150-450); RBC Distribution Width SD 38.7 fl (35.1-43.9); Red Blood Count 3.78 M/mm3 (4.6-6.2); White Blood Count 7.5 K/mm3 (4.4-11.0)
[2020-11-17 15:35] LABS: Albumin, Serum 3.5 g/dL (3.2-5.0); BUN 51 mg/dL (7-18); BUN/Creat Ratio 27.7 RATIO (10-20); Calcium,Total 8.7 mg/dL (8.5-10.1); Chloride 99 mmol/L (98-107); Creatinine, Serum 1.84 mg/dL (0.70-1.30); EST Glomerular Filtration Rate 39 mL/min (>60); Est Glom Filt Rate - Afr Amer 48 mL/min (>60); Glucose 56 mg/dL (74-106); Potassium 4.1 mmol/L (3.5-5.1); Sodium Level 135 mmol/L (136-145)
== END ==
PROVIDERS: PCP Family Medicine; Referring Provider Internal Medicine Nephrology; Visit Provider Internal Medicine Nephrology
DX: D50.9 Iron deficiency anemia, unspecified (principal); N18.32 Chronic kidney disease, stage 3b
CPT/HCPCS: 36415; 80069; 85027

== ENCOUNTER 2020-12-07 06:20 | Day surgery (SDC) | payer MEDICARE, SELFPAY ==
[2020-12-06 11:40] LABS: Bedside Glucose 149 mg/dL (70-110)
[2020-12-07] MEDS: Lactated Ringers 1,000 ML 100 ML IV (06:40)
[2020-12-07 06:58] VITALS: BP 150/82; PULSE 75; RESP 16; TEMP 37.1; O2SAT 95; BMI 46.7
[2020-12-07 07:40] LABS: Bedside Glucose 149 mg/dL (70-110)
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
--- NOTE | 2020-12-07 08:00 | IMM_PTH ---
PATIENT: ABDIEL CORTEZ LOC: EN U#:[id number] AGE/SX: 65/M ROOM: RE12/07/[address]: Dr. Saul Sen MD : 1955 BED: DIS: 12/07/2020 SPEC #: [id number] RECD: 12/07/20 12:52 STATUS: CHELSEA ARANZA #: [id number] MENDEZ: 12/07/20 08:[address]: Saul Sen DEPT: IMMUNOHISTOCHEMISTRY RECD BY: Jana Montoya ENTERED: 12/07/20 12:52 SP TYPE: IMMUNO OTHR DR: Dr. Chinmay Sin MD Tissues: B - Stomach, NOS Procedures: H Pylori (initial) PHYSICIAN & INSTITUTION [place] [id number] SPECIMEN INFORMATION: Tissue Source: B ? Antrum biopsy Clinical Info: RUQ pain, esophageal dysphagia, colonic polyps Specimen Number: [id number] CPT code: 66784 METHODOLOGY: Deparaffinized sections of prefer/formalin-fixed tissue or PAP/DQ stained slides are incubated with monoclonal/polyclonal antibodies/oligonucleotide probes. Localization is made via biotin free immunoperoxidase method. Appropriate controls are performed and reacted as expected. Results on target cell population are indicated in the following table: RESULTS: ANTIBODY / CLONE RESULT Block B H Pylori (polyclonal) negative These tests were developed and their performance characteristics determined by [facility]. They may not have been cleared or approved by the U.S. Food and Drug Administration. The FDA has determined that such clearance or approval is not necessary. INTERPRETATION: B. Antrum biopsy: Negative for Helicobacter pylori organisms. PILAR:ignacio 12/08/2020
--- NOTE | 2020-12-07 08:00 | EGD_PTH ---
PATIENT: ABDIEL CORTEZ LOC: EN U#:[id number] AGE/SX: 65/M ROOM: RE12/07/[address]: Dr. Saul Sen MD : 1955 BED: DIS: 12/07/2020 SPEC #: [id number] RECD: 12/07/20 10:44 STATUS: CHELSEA ARANZA #: [id number] MENDEZ: 12/07/20 08:[address]: Saul Sen DEPT: SURGICAL PATHOLOGY RECD BY: Chio Price ENTERED: 12/07/20 11:38 SP TYPE: EGD BIOPSY OT DR: Dr. Chinmay Sin MD Tissues: A - Duodenum, NOS B - Gastric mucous membrane C - Small intestine biopsy Procedures: Surgery Specimen Level IV HEADER OPERATION: Colonoscopy, EGD ([facility]) PRE-OP DIAGNOSIS: RUQ pain, esophageal dysphagia, history of colonic polyps TISSUE SUBMITTED: A - Duodenum biopsy, B - Antrum biopsy for H. pylori and path, C - Small bowel biopsy MICROSCOPIC DIAGNOSIS A. Duodenum, biopsy: Fragments of small intestinal mucosa, no pathologic diagnosis. B. Antrum, biopsy: Mild gastritis. See microscopic description and comment. C. Small bowel biopsy: A fragment of small intestinal mucosa, no pathologic diagnosis. SJ:rg 12/08/2020 COMMENT B. The results of immunohistochemistry for Helicobacter pylori will be reported separately ([id number]). MICROSCOPIC DESCRIPTION Slides are reviewed. B. The specimen shows fragments of gastric mucosa with chronic inflammatory cell infiltrates in the lamina propria consisting of lymphocytes and plasma cells, consistent with mild chronic gastritis. GROSS DESCRIPTION A - Received in fixative is one container labeled with the patient's name and designated duodenum biopsy. The specimen consists of two irregular fragments of light skinner soft tissue that in aggregate measure 0.4 x 0.3 x 0.1 cm. The specimen is totally submitted in one cassette. B - Received in fixative is one container labeled with the patient's name and designated antrum biopsy. The specimen consists of multiple irregular fragments of light skinner soft tissue that in aggregate measure 0.3 x 0.3 x 0.1 cm. The specimen is totally submitted in one cassette. C - Received in fixative is one container labeled with the patient's name and designated small bowel biopsy. The specimen consists of a fragment of light skinner soft tissue that measures 0.6 x 0.3 x 0.1 cm. The specimen is totally submitted in one cassette. / SJ:rg 12/07/20 TC:3 CPT: 86980 x3
--- NOTE | 2020-12-07 08:42 | OP.EGD_ITS ---
Patient Name: Sathya Chow Procedure Date: 12/07/2020 8:09 AM Date of : 1955 Age: 65 Procedure: Upper GI endoscopy Indications: Abdominal pain in the right upper quadrant Providers: Saul Sen MD Referring MD: Saul Sen MD Medicines: See the Anesthesia note for documentation of the administered medications Patient Profile: This is a 65 year old male. Refer to note in patient chart for documentation of history and physical. Complications: No immediate complications. Procedure: Pre-Anesthesia Assessment: - Prior to the procedure, a History and Physical was performed, and patient medications and allergies were reviewed. The patient's tolerance of previous anesthesia was also reviewed. The risks and benefits of the procedure and the sedation options and risks were discussed with the patient. All questions were answered, and informed consent was obtained. Prior Anticoagulants: The patient has taken aspirin, last dose was 7 days prior to procedure. ASA Grade Assessment: III - A patient with severe systemic disease. After reviewing the risks and benefits, the patient was deemed in satisfactory condition to undergo the procedure. After obtaining informed consent, the endoscope was passed under direct vision. Throughout the procedure, the patient's blood pressure, pulse, and oxygen saturations were monitored continuously. The gastroscope was introduced through the mouth, and advanced to the second part of duodenum. The upper GI endoscopy was accomplished without difficulty. The patient tolerated the procedure well. Scope In: 8:16:43 AM Scope Out: 8:20:56 AM Total Procedure Duration Time 0 hours 4 minutes 13 seconds Findings: The Z-line was regular and was found 49 cm from the incisors. No biopsies or other specimens were collected for this exam. The entire examined stomach was normal. Biopsies were taken with a cold forceps for Helicobacter pylori testing. The examined duodenum was normal. Biopsies were taken with a cold forceps for histology. Impression: - Z-line regular, 49 cm from the incisors. No specimens collected. - Normal stomach. Biopsied. - Normal examined duodenum. Biopsied. Recommendation: - Discharge patient to home. - Resume previous diet. - Continue present medications. - Await pathology results. - Repeat upper endoscopy PRN for surveillance. - Return to nurse practitioner in 1 week. Procedure Code(s): --- Professional --- 75175, Esophagogastroduodenoscopy, flexible, transoral; with biopsy, single or multiple Diagnosis Code(s): --- Professional --- R10.11, Right upper quadrant pain CPT copyright 2017 [employer]. All rights reserved. The codes documented in this report are preliminary and upon attending psychiatrist review may be revised to meet current compliance requirements. MD Saul Mcleod MD 12/07/2020 8:41:37 AM This report has been signed electronically. Number of Addenda: 0 Note Initiated On: 12/07/2020 8:09 AM
--- NOTE | 2020-12-07 08:43 | OP.CCLET_ITS ---
12/07/2020 Chinmay Sin MD Re : Upper GI endoscopy procedure for Sathya Chow Dear Dr. Sin This procedure was performed on Monday, December 07, 2020. My impressions and recommendations are as follows: Impressions : - Z-line regular, 49 cm from the incisors. No specimens collected. - Normal stomach. Biopsied. - Normal examined duodenum. Biopsied. Recommendations : - Discharge patient to home. - Resume previous diet. - Continue present medications. - Await pathology results. - Repeat upper endoscopy PRN for surveillance. - Return to nurse practitioner in 1 week. My findings are described in the full procedure note, which is enclosed. If I can be of further assistance, please feel free to contact me at Doctor phone number(s): , Work: . Sincerely, MD Saul Mcleod MD 12/07/2020 8:41:37 AM This report has been signed electronically.
[2020-12-07 08:45] VITALS: BP 150/82; BP 90/42; PULSE 92; RESP 18; TEMP 36.9; O2SAT 99
--- NOTE | 2020-12-07 08:46 | OP.CCLET_ITS ---
12/07/2020 Chinmay Sin MD Re : Colonoscopy procedure for Sathya Chow Dear Dr. Sin This procedure was performed on Monday, December 07, 2020. My impressions and recommendations are as follows: Impressions : - Patent functional end-to-end ileo-colonic anastomosis. Biopsied. - Diverticulosis in the sigmoid colon. No specimens collected. - The examination was otherwise normal. Recommendations : - Discharge patient to home. - Resume previous diet. - Continue present medications. - Await pathology results. - Repeat colonoscopy in 10 years for screening purposes. - Return to nurse practitioner in 1 week. My findings are described in the full procedure note, which is enclosed. If I can be of further assistance, please feel free to contact me at Doctor phone number(s): , Work: . Sincerely, MD Saul Mcleod MD 12/07/2020 8:45:44 AM This report has been signed electronically.
--- NOTE | 2020-12-07 08:46 | OP.COLON_ITS ---
Patient Name: Sathya Chow Procedure Date: 12/07/2020 8:21 AM Date of : 1955 Age: 65 Procedure: Colonoscopy Indications: High risk colon cancer surveillance: Personal history of colonic polyps Providers: Saul Sen MD Referring MD: Saul Sen MD Medicines: See the Anesthesia note for documentation of the administered medications Patient Profile: This is a 65 year old male. Refer to note in patient chart for documentation of history and physical. Last Colonoscopy: 2014. Complications: No immediate complications. Procedure: Pre-Anesthesia Assessment: - Prior to the procedure, a History and Physical was performed, and patient medications and allergies were reviewed. The patient's tolerance of previous anesthesia was also reviewed. The risks and benefits of the procedure and the sedation options and risks were discussed with the patient. All questions were answered, and informed consent was obtained. Prior Anticoagulants: The patient has taken aspirin, last dose was 7 days prior to procedure. ASA Grade Assessment: III - A patient with severe systemic disease. After reviewing the risks and benefits, the patient was deemed in satisfactory condition to undergo the procedure. After I obtained informed consent, the scope was passed under direct vision. Throughout the procedure, the patient's blood pressure, pulse, and oxygen saturations were monitored continuously. The adult colonoscope was introduced through the anus and advanced to the ileocolonic anastomosis. The colonoscopy was performed without difficulty. The patient tolerated the procedure well. The quality of the bowel preparation was good. Scope In: 8:23:55 AM Scope Withdrawal Time 0 hours 7 minutes 26 seconds Scope Out: 8:37:34 AM Total Procedure Duration Time 0 hours 13 minutes 39 seconds Findings: There was evidence of a prior functional end-to-end ileo-colonic anastomosis in the ascending colon. This was patent. The anastomosis was not traversed. Biopsies were taken with a cold forceps for histology. A few small-mouthed diverticula were found in the sigmoid colon. No biopsies or other specimens were collected for this exam. The exam was otherwise without abnormality. Impression: - Patent functional end-to-end ileo-colonic anastomosis. Biopsied. - Diverticulosis in the sigmoid colon. No specimens collected. - The examination was otherwise normal. Recommendation: - Discharge patient to home. - Resume previous diet. - Continue present medications. - Await pathology results. - Repeat colonoscopy in 10 years for screening purposes. - Return to nurse practitioner in 1 week. Procedure Code(s): --- Professional --- 67786, Colonoscopy, flexible; with biopsy, single or multiple Diagnosis Code(s): --- Professional --- Z86.010, Personal history of colonic polyps Z98.0, Intestinal bypass and anastomosis status K57.30, Diverticulosis of large intestine without perforation or abscess without bleeding CPT copyright 2017 [employer]. All rights reserved. The codes documented in this report are preliminary and upon department store door greeter review may be revised to meet current compliance requirements. MD Saul Mcleod MD 12/07/2020 8:45:44 AM This report has been signed electronically. Number of Addenda: 0 Note Initiated On: 12/07/2020 8:21 AM
[2020-12-07 08:50] VITALS: BP 122/86; BP 150/82; PULSE 72; RESP 18; O2SAT 98
[2020-12-07 08:55] VITALS: BP 122/84; BP 150/82; PULSE 97; RESP 18; O2SAT 98
[2020-12-07 09:00] VITALS: BP 126/86; BP 150/82; PULSE 80; RESP 18; TEMP 36.4; O2SAT 99
[2020-12-07 09:24] VITALS: BP 150/82
== END 2020-12-07 09:43 | disposition home or self-care (01) ==
LOC: EN 06:21 → AC 06:21
PROVIDERS: PCP Family Medicine; Referring Provider Surgery; Visit Provider Surgery
PROC: 0DJD8ZZ Inspection of Lower Intestinal Tract, Via Natural or Artificial Opening Endoscopic (ICD-10-PCS; CPT 45378; principal; 2020-12-07 07:55)
DX: Z12.11 Encounter for screening for malignant neoplasm of colon (principal); R13.10 Dysphagia, unspecified; K29.70 Gastritis, unspecified, without bleeding; K57.30 Diverticulosis of large intestine without perforation or abscess without bleeding; D63.8 Anemia in other chronic diseases classified elsewhere; E03.9 Hypothyroidism, unspecified; E11.22 Type 2 diabetes mellitus with diabetic chronic kidney disease; E66.01 Morbid (severe) obesity due to excess calories; E78.2 Mixed hyperlipidemia; I25.10 Atherosclerotic heart disease of native coronary artery without angina pectoris; I13.0 Hypertensive heart and chronic kidney disease with heart failure and stage 1 through stage 4 chronic kidney disease, or unspecified chronic kidney disease; I50.9 Heart failure, unspecified; N18.30 Chronic kidney disease, stage 3 unspecified; Z68.42 Body mass index [BMI] 45.0-49.9, adult; Z79.4 Long term (current) use of insulin; Z79.51 Long term (current) use of inhaled steroids; Z79.82 Long term (current) use of aspirin; Z85.21 Personal history of malignant neoplasm of larynx; Z86.010 Personal history of colon polyps; Z87.891 Personal history of nicotine dependence; Z98.0 Intestinal bypass and anastomosis status
CPT/HCPCS: 43239; 45380; 82962; 87426; 88305; 88342; C9803; J7120; J2405

== ENCOUNTER 2021-03-24 13:57 | Outpatient (CLI) | payer MEDICARE, SELFPAY ==
[2021-03-24 16:14] LABS: T4 Free Direct 1.56 ng/dL (0.76-1.46); Thyroid Stim Hormone (TSH) 0.64 uIU/mL (0.358-3.74)
== END 2021-03-24 23:59 | disposition home or self-care (01) ==
LOC: LAB 13:58
PROVIDERS: PCP Family Medicine; Visit Provider Internal Medicine Endocrinology, Diabetes & Metabolism
DX: E03.9 Hypothyroidism, unspecified (principal)
CPT/HCPCS: 36415; 84439; 84443

== ENCOUNTER → 2021-06-16 | Outpatient (CLI) | payer MEDICARE, SELFPAY ==
--- NOTE | 2021-06-16 12:07 | US_ITS ---
STUDY: SUPERFICIAL ULTRASOUND - PLEURAL EFFUSION SURVEY. REASON FOR EXAM: Male, 66 years old. DYSPNEA AND RESPIRATORY ABNORMALITIES, PLEURAL EFFUSION SURVEY TECHNIQUE: A superficial ultrasound was performed with real-time and static tyler-scale imaging. COMPARISON: None. FINDINGS: No pleural effusion is seen in the right chest. Small to moderate-sized left pleural effusion. US/Chest IMPRESSION: Small to moderate-sized left pleural effusion. Electronically Signed: Tashi Lipscomb MD at 12:40 EDT ,
== END | disposition home or self-care (01) ==
LOC: US 12:06
PROVIDERS: PCP Family Medicine; Referring Provider Physician Assistant; Visit Provider Physician Assistant
DX: R06.00 Dyspnea, unspecified (principal); R06.89 Other abnormalities of breathing; J90 Pleural effusion, not elsewhere classified
CPT/HCPCS: 76604

== ENCOUNTER → 2021-08-25 | Outpatient (CLI) | payer MEDICARE, SELFPAY ==
[2021-08-25 08:54] LABS: Hemoglobin 10.8 g/dL (13.0-16.5); Mean Corp Hgb Conc 31.8 g/dL (32-36); Mean Corpuscular Hgb 28.9 pg (27.0-32.0); Mean Corpuscular Volume 90.9 fL (80-94); Mean Platelet Vol. 9.7 fl (6.2-12.0); Platelet Count 342 K/mm3 (150-450); RBC Distribution Width CV 12.9 % (11.6-14.6); RBC Distribution Width SD 42.6 fl (35.1-43.9); Red Blood Count 3.74 M/mm3 (4.6-6.2); White Blood Count 10.1 K/mm3 (4.4-11.0)
[2021-08-25 09:05] LABS: Protein, Urine (Random) 8.7 mg/dL (<11.9); Protein:Creat Ratio 102 mg/g CRE (0-200)
[2021-08-25 09:24] LABS: Albumin, Serum 3.3 g/dL (3.2-5.0); BUN 49 mg/dL (7-18); BUN/Creat Ratio 20.2 RATIO (10-20); Calcium,Total 8.6 mg/dL (8.5-10.1); Chloride 102 mmol/L (98-107); Creatinine, Serum 2.43 mg/dL (0.70-1.30); EST Glomerular Filtration Rate 29 mL/min (>60); Est Glom Filt Rate - Afr Amer 34 mL/min (>60); Glucose 108 mg/dL (74-106); Phosphorus 4.2 mg/dL (2.5-4.9); Potassium 4.5 mmol/L (3.5-5.1); Sodium Level 138 mmol/L (136-145)
== END | disposition home or self-care (01) ==
LOC: LAB 08:17
PROVIDERS: PCP Family Medicine; Referring Provider Internal Medicine Nephrology; Visit Provider Internal Medicine Nephrology
DX: N18.32 Chronic kidney disease, stage 3b (principal); E11.9 Type 2 diabetes mellitus without complications; D50.9 Iron deficiency anemia, unspecified
CPT/HCPCS: 36415; 80069; 82570; 84156; 85027

== ENCOUNTER → 2021-09-26 | Outpatient (CLI) | payer MEDICARE, SELFPAY ==
[2021-09-26 10:41] LABS: Albumin, Serum 3.1 g/dL (3.2-5.0); BUN 39 mg/dL (7-18); BUN/Creat Ratio 22.7 RATIO (10-20); Calcium,Total 8.8 mg/dL (8.5-10.1); Chloride 102 mmol/L (98-107); Creatinine, Serum 1.72 mg/dL (0.70-1.30); EST Glomerular Filtration Rate 42 mL/min (>60); Est Glom Filt Rate - Afr Amer 51 mL/min (>60); Glucose 130 mg/dL (74-106); Phosphorus 3.9 mg/dL (2.5-4.9); Potassium 4.3 mmol/L (3.5-5.1); Sodium Level 136 mmol/L (136-145)
== END | disposition home or self-care (01) ==
LOC: LAB 09:51
PROVIDERS: PCP Family Medicine; Visit Provider Internal Medicine Nephrology
DX: N17.9 Acute kidney failure, unspecified (principal); N18.32 Chronic kidney disease, stage 3b
CPT/HCPCS: 36415; 80069

== ENCOUNTER 2021-10-23 20:56 | Inpatient (IN) | payer MEDICARE, SELFPAY ==
[2021-10-23 20:57] VITALS: BP 127/91; PULSE 89; RESP 28; TEMP 36.9; O2SAT 90; BMI 41.8
--- NOTE | 2021-10-23 22:13 | EKG12_ITS ---
Test Reason : WEAKNESS Blood Pressure : / mmHG Vent. Rate : 101 BPM Atrial Rate : 000 BPM P-R Int : 000 ms QRS Dur : 084 ms QT Int : 340 ms P-R-T Axes : 000 019 176 degrees QTc Int : 440 ms Atrial fibrillation with rapid ventricular response Low voltage QRS Nonspecific T wave abnormality Abnormal ECG Confirmed by BALTAZAR CHENG, ALEXANDER ([id number]), slot editor ERON FUENTES ([id number]) on 10/24/2021 10:56:31 AM Referred By: Confirmed By:ALEXANDER LEDESMA MD
[2021-10-23] MEDS: Furosemide 40 MG/4 ML Vial IV (22:27)
[2021-10-23 22:28] LABS: Absolute Lymphocyte Count 0.99 X10^3/uL (0.83-4.51); Absolute Neutrophil Count 5.6 X10^3/uL (2.0-7.7); Basophil# 0.05 X10^3/uL; Basophil% 0.6 % (0-1); Eosinophils% 3.8 % (0-5); Hematocrit 32.1 % (40-54); Lymphocyte # 0.99 X10^3/ul (0.83-4.51); Lymphocyte % 12.7 % (19-41); Mean Corp Hgb Conc 31.2 g/dL (32-36); Mean Corpuscular Hgb 28.7 pg (27.0-32.0); Mean Corpuscular Volume 92.2 fL (80-94); Mean Platelet Vol. 10.5 fl (6.2-12.0); Monocyte# 0.83 X10^3/uL; Monocyte% 10.6 % (0-10); NRBC Flagged by Analyzer 0 % (0-5); Neutrophil # 5.63 X10^3/uL (2.7-7.7); Platelet Count 300 K/mm3 (150-450); RBC Distribution Width CV 13.2 % (11.6-14.6); RBC Distribution Width SD 44.4 fl (35.1-43.9); Red Blood Count 3.48 M/mm3 (4.6-6.2); White Blood Count 7.8 K/mm3 (4.4-11.0)
--- NOTE | 2021-10-23 22:40 | RAD_ITS ---
STUDY: X-RAY CHEST REASON FOR EXAM: Male, 66 years old. Dyspnea TECHNIQUE: PA and lateral views of the chest. COMPARISON: 03/12/2019 FINDINGS: Lungs are mildly hyperinflated with flattened hemidiaphragms. Moderate to large left effusion. Right lung is essentially clear. There is mild cardiac enlargement. Normal mediastinum and laura. Normal visualized pulmonary arteries. Normal visualized aortic arch and descending thoracic aorta. Normal visualized thoracic spine. Normal visualized ribs, clavicles, and shoulders. There is no demonstrated abnormality of the visualized soft tissue structures of the upper abdomen. RAD/Chest PA and Lateral IMPRESSION: Moderate to large left effusion, consider thoracentesis Electronically Signed: Pietro Anderson DO at 23:04 EDT ,
[2021-10-23 22:41] LABS: Partial Thromboplast Time 23.8 Seconds (24.1-36.2)
[2021-10-23 22:43] LABS: BNP,B-Type NATRIURETIC PEPTIDE 121.6 pg/mL (0-100)
[2021-10-23 22:47] LABS: ALB/GLOB Ratio 0.8 RATIO (0.9-2.4); AST(SGOT) 19 U/L (15-37); Alanine Aminotransfer ALT/SGPT 23 U/L (16-61); Albumin, Serum 3.3 g/dL (3.2-5.0); Alkaline Phosphatase 103 U/L (45-117); Anion Gap 9 (5-15); BUN 25 mg/dL (7-18); BUN/Creat Ratio 16.2 RATIO (10-20); Calcium,Total 8.1 mg/dL (8.5-10.1); Chloride 103 mmol/L (98-107); Creatinine, Serum 1.54 mg/dL (0.70-1.30); EST Glomerular Filtration Rate 48 mL/min (>60); Est Glom Filt Rate - Afr Amer 58 mL/min (>60); Estimated Creatinine Clearance 50.25 ml/min; Globulin 4.2 g/dL (2.2-4.2); Glucose 119 mg/dL (74-106); Potassium 3.8 mmol/L (3.5-5.1); Protein, Total 7.5 g/dL (6.4-8.2); Sodium Level 143 mmol/L (136-145); Troponin-I HS (w/2H Reflex) 11 pg/mL (3.0-78.0)
[2021-10-23 23:33] VITALS: BP 122/70; PULSE 86; RESP 24; O2SAT 94
--- NOTE | 2021-10-23 23:58 | EDS_ITS ---
HPI History of Present Illness Chief Complaint: General Illness Informant: patient Onset/Context/Timing Onset: Days (2) Context: Gradual Onset Timing: Continuous Quality: Dyspnea Location: Left chest Worsened by: Laying flat, exertion Relieved by: Sitting up Narrative Narrative: Patient presents with lower extremity edema and shortness of breath that has been getting worse over the past couple days. Patient states his breathing is worse whenever he lays flat. Patient states it has been constant for the past couple days. Patient states his breathing is worse with any exertion. Patient admits to some pain in his chest. Patient states it is over the substernal and left chest area. Patient denies any fevers or chills. Patient denies any nausea or vomiting. [facility] Medical History (HFpEF) heart failure with preserved ejection fraction Acute hypercapnic respiratory failure Ambulates with cane Anxiety Atherosclerosis of coronary artery of [place] heart without angina pectoris Back pain Benign neoplasm of colon Cholelithiasis Chronic diastolic (congestive) heart failure COPD (chronic obstructive pulmonary disease) COPD with acute exacerbation Diabetes Diabetes mellitus, type II Diverticulosis of colon (without mention of hemorrhage) Easy bruising Emphysema, unspecified Esophageal dysmotility Essential hypertension Excessive bleeding Former smoker Gastric reflux Gastroenteritis Gout Hiatal hernia History of colon polyps History of renal disease History of steroid therapy History of stress test Hyperlipidemia Hypothyroidism Hypoxemia Injury of back Injury of head and neck Insomnia Kidney failure Leg cramps Malignant neoplasm of head, neck and face Migraine headache Morbid obesity Normal stress echocardiogram Obesity On home oxygen therapy Pleural effusion, left Polyneuropathy due to type 2 diabetes mellitus Shortness of breath Shortness of breath on exertion Thyroid disease Type 2 diabetes mellitus without complication Type 2 diabetes with stage 3 chronic kidney disease GFR 30-59 Walker as ambulation aid Wears glasses Home Medications levothyroxine 150 mcg tablet 150 mcg PO DAILY hypothyroidism 06/04/14 [History Last Taken 03/12/19] atorvastatin 40 mg tablet 40 mg PO QHS cholesterol 04/12/17 [History Last Taken 03/11/19] ipratropium 0.5 mg-albuterol 3 mg (2.5 mg base)/3 mL nebulization soln 3 ml inhalation Q6H PRN Sob &/Or Wheezing 04/12/17 [History Last Taken 03/12/19] budesonide 0.25 mg/2 mL suspension for nebulization 2 ml inhalation BID sob 07/18/18 [History Last Taken 03/12/19] furosemide 40 mg tablet 40 mg PO BID diuretic/water pill 07/18/18 [History Last Taken 03/12/19] insulin aspart U-100 100 unit/mL (3 mL) subcutaneous pen 10 unit subcut LUNCH diabetes 09/29/18 [History Last Taken 03/11/19] insulin aspart U-100 100 unit/mL (3 mL) subcutaneous pen 10 units subcut BREAKFAST diabetes 09/29/18 [History Last Taken 03/12/19] insulin aspart U-100 100 unit/mL (3 mL) subcutaneous pen 15 units subcut DINNER diabetes 09/29/18 [History Last Taken 03/11/19] spironolactone 25 mg tablet 25 mg PO DAILY 07/28/20 [History Last Taken Unknown] amlodipine 2.5 mg tablet 2.5 mg PO DAILY #90 tabs 01/25/21 [Rx Last Taken Unknown] metolazone 2.5 mg tablet 2.5 mg PO .M// #60 tabs 01/25/21 [Rx Last Taken Unknown] prednisone 20 mg tablet 20 mg PO DAILY PRN Shortness Of Breath 01/25/21 [History Last Taken Unknown] flash glucose sensor (What They LikeStyle Zayra 2 Sensor kit) #2 ea 05/17/21 [Rx Last Taken Unknown] lisinopril 40 mg tablet 40 mg PO DAILY 06/06/21 [History Last Taken Unknown] aspirin 81 mg tablet,delayed release 325 mg PO DAILY@0800 heart health 08/25/21 [History Last Taken Unknown] Trulicity 4.5 mg/0.5 mL subcutaneous pen injector (dulaglutide) 4.5 mg (0.5 mL) subcut QWEEK #6 mL 10/05/21 [Rx Last Taken Unknown] Levemir FlexTouch U-100 Insuln 100 unit/mL (3 mL) subcutaneous pen (insulin detemir U-100) 42 unit (0.42 mL) subcut QHS #39 mL 10/13/21 [Rx Last Taken Unknown] metformin 500 mg tablet,extended release 24 hr 500 mg PO BID dm #180 tabs 10/19/21 [Rx Last Taken Unknown] Allergy/AdvReac Type Severity Reaction Status Date / Time No Known Allergies Allergy Verified 10/23/21 21:04 Family History Mother Diabetes Hypertension Kidney disease Heart failure Father CVA (cerebral vascular accident) Hypertension Heart disease ischemic Brother Diabetes Surgical History History of cardiac catheterization History of exploratory laparotomy History of laryngectomy (2007) History of thyroidectomy Hx of colonoscopy Presence of tracheostomy Social History Smoking Status: Former smoker Smokeless tobacco user: snuff how long ago did patient quit smokin years ago alcohol intake: never substance use type: does not use caffeine: Yes what type of physical activity do you participate in: none frequency: does not exercise ROS ROS ED Constitutional Constitutional ED: Denies chills or fever(s) Eyes Eyes: Denies blurry vision or change in vision ENT ENT ED: Denies rhinorrhea or sore throat Cardiovascular Cardiovascular: Reports chest pain; Denies palpitations Respiratory/Chest Respiratory/Chest: Reports dyspnea; Denies cough Gastrointestinal Gastrointestinal: Denies nausea or vomiting Genitourinary Genitourinary ED: Denies dysuria or hematuria Musculoskeletal Musculoskeletal: Reports neck pain; Denies back pain Integumentary Denies abscess or rash Neurologic Neurologic: Denies headache(s) or weakness Allergic/Immunologic Allergic/Immunologic ED: Denies mouth swelling or urticaria EXAM Physical Exam Const Vital Signs: 10/23/21 20:57 10/23/21 23:33 10/24/21 00:44 Temperature 98.5 F 97.9 F Temperature Source Temporal Temporal Pulse Rate 89 86 93 Respiratory Rate 28 H 24 H 22 H Blood Pressure 127/91 H 122/70 H 127/80 H Blood Pressure Mean 103 87 95 Pulse Ox 90 94 94 Oxygen Delivery Method Room Air Room Air Room Air Positive well nourished, well developed and obese General Appearance ED: well developed and NAD Nutritional Appearance: obese HEENT Reports moist mucous membranes Neck supple and no JVD Resp normal respiratory effort Auscultation: diminished lung sounds left Cardio regular rate Rhythm: abnormal rhythm irregularly irregular GI non-tender and non-distended Auscultation: normoactive bowel sounds Palpation: soft Extremity Extremity Narrative: There is 1+ edema of the lower extremities bilaterally. General Extremety ED: Yes edema General Extremity: edema Neuro oriented x3, CN's II-XII intact bilaterally and no sensory deficits noted Sensorium / Orientation: alert Motor Exam: strength 5/5 throughout Psych mental status grossly normal MDM MDM MDM Narrative Medical decision making narrative: EKG was obtained. On my interpretation, it is shows atrial fibrillation with a rate of 101. There are nonspecific ST-T wave changes. There are no ST elevation or depression. QRS interval and QTc intervals are normal. [place] is normal. CBC shows a mild anemia with hemoglobin of 10.0 hematocrit 32.1. PT with INR and PTT were within normal limits. Comprehensive metabolic profile showed a slightly elevated BUN of 25 and creatinine of 1.54. High-sensitivity troponin was normal at 11. BNP was slightly elevated at 121.6. Lactate was normal. PA and lateral chest x-ray was obtained. There are 2 views. On my interpretation, there is a large effusion on the left. There is no acute infiltrate noted. Bony thorax is normal. Radiologist also interpreted the x- ray and agrees. Patient was given a dose of Lasix initially. Patient was advised of his findings. Patient was advised that he may need to be admitted to the hospital for his pleural effusion and dyspnea. Patient is agreeable with this. Case was discussed with the hospitalist. He will admit the patient to PCU. Lab Data Attestation: I reviewed the patient's lab results. Labs: Laboratory Results - last 24 hr 10/23/21 10/23/21 10/23/21 21:45 21:45 21:45 WBC 7.8 RBC 3.48 L Hgb 10.0 L Hct 32.1 L MCV 92.2 MCH 28.7 MCHC 31.2 L RDW Std Deviation 44.4 H RDW Coeff of Alisson 13.2 Plt Count 300 MPV 10.5 Immature Gran % (Auto) 0.300 Neut % (Auto) 72.0 H Lymph % (Auto) 12.7 L [place] % (Auto) 10.6 H Eos % (Auto) 3.8 Baso % (Auto) 0.6 Absolute Neuts (auto) 5.6 Absolute Lymphs (auto) 0.99 Nucleated RBC % 0 PT 13.0 INR 1.0 APTT 23.8 L Sodium 143 Potassium 3.8 Chloride 103 Carbon Dioxide 31.0 Anion Gap 9 BUN 25 H Creatinine 1.54 H Estim Creat Clear Calc 50.25 Est GFR (MDRD) Af Amer 58 L Est GFR (MDRD) Non-Af 48 L BUN/Creatinine Ratio 16.2 Glucose 119 H Lactic Acid Calcium 8.1 L Total Bilirubin 0.30 AST 19 ALT 23 Alkaline Phosphatase 103 Troponin I High Sens 11 B-Natriuretic Peptide Total Protein 7.5 Albumin 3.3 Globulin 4.2 Albumin/Globulin Ratio 0.8 L 10/23/21 10/23/21 21:45 22:25 WBC RBC Hgb Hct MCV MCH MCHC RDW Std Deviation RDW Coeff of Alisson Plt Count MPV Immature Gran % (Auto) Neut % (Auto) Lymph % (Auto) [place] % (Auto) Eos % (Auto) Baso % (Auto) Absolute Neuts (auto) Absolute Lymphs (auto) Nucleated RBC % PT INR APTT Sodium Potassium Chloride Carbon Dioxide Anion Gap BUN Creatinine Estim Creat Clear Calc Est GFR (MDRD) Af Amer Est GFR (MDRD) Non-Af BUN/Creatinine Ratio Glucose Lactic Acid 1.0 Calcium Total Bilirubin AST ALT Alkaline Phosphatase Troponin I High Sens B-Natriuretic Peptide 121.6 H Total Protein Albumin Globulin Albumin/Globulin Ratio Radiography Chest X-Ray - ED: 2 View, Read by ED Physician, Read by Radiologist and Left Effusion Diagnostic Testing: Clinical Impression(s) from Imaging Studies Chest X-Ray 10/23/21 22:40 IMPRESSION: Moderate to large left effusion, consider thoracentesis Electronically Signed: Pietro Anderson DO at 23:04 EDT Reading Location ID and State: [address] [place] [address] Tel , Service support , EKG Initial EKG: Attestation: I personally reviewed and interpreted this EKG as follows: Interpretation: Atrial Fibrillation (101) and Non-Specific ST Changes Prior EKG tracings: available for review Prior: Unchanged (There are no acute ST or T wave changes compared to the EKG dated 03/12/2019. However, the atrial fibrillation is new compared to the EKG on this date. However there is also a rhythm strip from 12/07/2020 which shows atrial fibrillation.) Discharge Plan Triage Chief Complaint: General Illness ED Provider: Jerry Elise Dx/Rx/DC Orders Clinical Impression: Pleural effusion, left, Dyspnea Prescriptions: No Action budesonide 0.25 mg/2 mL suspension for nebulization 2 ml INHALATION BID prednisone 20 mg tablet 20 mg PO DAILY PRN (Reason: Shortness Of Breath) amlodipine 2.5 mg tablet 2.5 mg PO DAILY Qty: 90 3RF metolazone 2.5 mg tablet 2.5 mg PO .M/W/F Qty: 60 3RF lisinopril 40 mg tablet 40 mg PO DAILY levothyroxine 150 MCG tablet 150 mcg PO DAILY Label Comments: thyroid furosemide 40 mg tablet 40 mg PO BID Label Comments: diuresis atorvastatin 40 MG tablet 40 mg PO QHS ipratropium-albuterol 3 ML solution for nebulization 3 ml inhalation Q6H PRN (Reason: Sob &/Or Wheezing) Label Comments: breathing insulin aspart U-100 100 UNITS/ML insulin pen 10 units subcut BREAKFAST insulin aspart U-100 100 UNITS/ML insulin pen 10 unit subcut LUNCH insulin aspart U-100 100 UNITS/ML insulin pen 15 units subcut DINNER aspirin 81 mg tablet,delayed release (DR/EC) 325 mg PO DAILY@0800 spironolactone 25 mg tablet 25 mg PO DAILY Rx Instructions: Decreased by Dr. Ballard on 07/28/20 (DME) FreeStyle Zayra 2 Sensor Kit See Rx Instructions .ROUTE .MEDSUPPLY Qty: 2 6RF Rx Instructions: As directed Trulicity 4.5 mg/0.5 mL pen injector 4.5 mg subcut QWEEK Qty: 6 1RF Levemir FlexTouch U-100 Insuln 100 unit/mL (3 mL) insulin pen 42 unit subcut QHS Qty: 39 2RF metformin 500 mg tablet extended release 24 hr 500 mg PO BID Qty: 180 1RF Primary Care Provider: Chinmay Sin Referrals: Chinmay Sin MD [Primary Care Provider] - Disposition Disposition: Acute Care Hospital [facility]
[2021-10-24] VITALS (20 sets, daily range): BP systolic 111–152; BP diastolic 62–109; PULSE 52–128; RESP 18–30; TEMP 36.4–37.7; O2SAT 92–100; BMI 42.6
--- NOTE | 2021-10-24 | FLU_PTH ---
PATIENT: ABDIEL CORTEZ LOC: [facility] U#:[id number] AGE/SX: 66/M ROOM: [facility] RE10/24/[address]: Dr. Ashu Oliver MD : 1955 BED: 1 DIS: 10/28/2021 SPEC #: [id number] RECD: 10/24/21 13:04 STATUS: CHELSEA COBIAN #: [id number] MENDEZ: 10/24/21 00:[address]: Ashu Oliver DEPT: CYTOLOGY RECD BY: Edson Lynch ENTERED: 10/25/21 07:42 SP TYPE: Fluid OTHR DR: MD Dr. Chinmay Trinh MD Tissues: THORACIC FLUID Procedures: Special Stain Group II Surgery Specimen Level IV Cytospin Fluid HEADER OPERATION: Ultrasound-guided thoracentesis left PRE-OP DIAGNOSIS: Pleural effusion TISSUE SUBMITTED: Thoracentesis fluid for cytology DIAGNOSIS CYTOLOGY Thoracentesis fluid for cytology (cytospin and cell block): Negative for malignant cells. AM:ignacio 10/26/2021 CYTOLOGY STUDY Slides are reviewed. CYTOLOGY GROSS Received is 120 ml of hazy sigifredo fluid labeled with the patient's name and and designated per the requisition as thoracentesis. Submitted for cytology preparation including cell block. / ignacio 10/25/2021 TC:5 CPT: 32769, 73311
[2021-10-24 00:20] LABS: Reflex Troponin-HS? (from REC) Y
--- NOTE | 2021-10-24 01:06 | PCM.HP.STD ---
[facility] - General General Date of Admission: 10/24/21 Date of Service: 10/24/21 Chief Complaint: sob [facility] Narrative ABDIEL CORTEZ, is a 66 M with a significant history of right-sided heart failure and chronic diastolic dysfunction who presents to the emergency department with progressively worsening shortness of breath at rest. His symptoms started about a week ago. Associated with symptom is bilateral lower extremity swelling; right worse than left. Further patient reports fatigue, proximal nocturnal dyspnea and orthopnea. At baseline he uses 4 L nasal cannula oxygen trach mist nightly. FOR[facility]LY [facility] Medical History (HFpEF) heart failure with preserved ejection fraction Acute hypercapnic respiratory failure Ambulates with cane Anxiety Atherosclerosis of coronary artery of nome heart without angina pectoris Back pain Benign neoplasm of colon Cholelithiasis Chronic diastolic (congestive) heart failure COPD (chronic obstructive pulmonary disease) COPD with acute exacerbation Diabetes Diabetes mellitus, type II Diverticulosis of colon (without mention of hemorrhage) Easy bruising Emphysema, unspecified Esophageal dysmotility Essential hypertension Excessive bleeding Former smoker Gastric reflux Gastroenteritis Gout Hiatal hernia History of colon polyps History of renal disease History of steroid therapy History of stress test Hyperlipidemia Hypothyroidism Hypoxemia Injury of back Injury of head and neck Insomnia Kidney failure Leg cramps Malignant neoplasm of head, neck and face Migraine headache Morbid obesity Normal stress echocardiogram Obesity On home oxygen therapy Pleural effusion, left Polyneuropathy due to type 2 diabetes mellitus Shortness of breath Shortness of breath on exertion Thyroid disease Type 2 diabetes mellitus without complication Type 2 diabetes with stage 3 chronic kidney disease GFR 30-59 Walker as ambulation aid Wears glasses Home Medications levothyroxine 150 mcg tablet 150 mcg PO DAILY hypothyroidism 06/04/14 [History Last Taken 03/12/19] atorvastatin 40 mg tablet 40 mg PO QHS cholesterol 04/12/17 [History Last Taken 03/11/19] ipratropium 0.5 mg-albuterol 3 mg (2.5 mg base)/3 mL nebulization soln 3 ml inhalation Q6H PRN Sob &/Or Wheezing 04/12/17 [History Last Taken 03/12/19] budesonide 0.25 mg/2 mL suspension for nebulization 2 ml inhalation BID sob 07/18/18 [History Last Taken 03/12/19] furosemide 40 mg tablet 40 mg PO BID diuretic/water pill 07/18/18 [History Last Taken 03/12/19] insulin aspart U-100 100 unit/mL (3 mL) subcutaneous pen 10 unit subcut LUNCH diabetes 09/29/18 [History Last Taken 03/11/19] insulin aspart U-100 100 unit/mL (3 mL) subcutaneous pen 10 units subcut BREAKFAST diabetes 09/29/18 [History Last Taken 03/12/19] insulin aspart U-100 100 unit/mL (3 mL) subcutaneous pen 15 units subcut DINNER diabetes 09/29/18 [History Last Taken 03/11/19] spironolactone 25 mg tablet 25 mg PO DAILY 07/28/20 [History Last Taken Unknown] amlodipine 2.5 mg tablet 2.5 mg PO DAILY #90 tabs 01/25/21 [Rx Last Taken Unknown] metolazone 2.5 mg tablet 2.5 mg PO .M/W/ #60 tabs 01/25/21 [Rx Last Taken Unknown] prednisone 20 mg tablet 20 mg PO DAILY PRN Shortness Of Breath 01/25/21 [History Last Taken Unknown] flash glucose sensor (FreeStyle Zayra 2 Sensor kit) #2 ea 05/17/21 [Rx Last Taken Unknown] lisinopril 40 mg tablet 40 mg PO DAILY 06/06/21 [History Last Taken Unknown] aspirin 81 mg tablet,delayed release 325 mg PO DAILY@0800 heart [facility] 08/25/21 [History Last Taken Unknown] Trulicity 4.5 mg/0.5 mL subcutaneous pen injector (dulaglutide) 4.5 mg (0.5 mL) subcut QWEEK #6 mL 10/05/21 [Rx Last Taken Unknown] Levemir FlexTouch U-100 Insuln 100 unit/mL (3 mL) subcutaneous pen (insulin detemir U-100) 42 unit (0.42 mL) subcut QHS #39 mL 10/13/21 [Rx Last Taken Unknown] metformin 500 mg tablet,extended release 24 hr 500 mg PO BID dm #180 tabs 10/19/21 [Rx Last Taken Unknown] Allergy/AdvReac Type Severity Reaction Status Date / Time No Known Allergies Allergy Verified 10/23/21 21:04 Family History Mother Diabetes Hypertension Kidney disease Heart failure Father CVA (cerebral vascular accident) Hypertension Heart disease ischemic Brother Diabetes Surgical History History of cardiac catheterization History of exploratory laparotomy History of laryngectomy (2007) History of thyroidectomy Hx of colonoscopy Presence of tracheostomy Social History Smoking Status: Former smoker Smokeless tobacco user: snuff how long ago did patient quit smokin years ago alcohol intake: never substance use type: does not use caffeine: Yes what type of physical activity do you participate in: none frequency: does not exercise ROS ROS Narrative Physical exam: General: Morbidly obese Head: Normocephalic, atraumatic, no tenderness Eyes: Vision is grossly intact. EOMI ENT: Tracheostomy with trach tube in place. Moist mucous membranes, no rhinorrhea Neck: Nontender, full range of motion, no spinal tenderness, deformities, step-off CVS: Tachycardia, irregularly irregular rate and rhythm. S1-S2 present. No murmur, gallop or rub. Respiratory : Diminished bibasilar lung sounds left worse than right. Abdomen: Soft, nontender, nondistended, normal bowel sounds, no masses : Deferred Back: Nontender, no CVA tenderness, no midline spinal tenderness, deformities, step-offs Extremities: Bilateral leg and feet edema. Skin: Excoriations on right sebastian. Normal color, no trauma. Neuro: Alert, oriented, cranial nerves II through XII grossly intact. Psychiatry: Normal mood. Normal affect. Not depressed. Not anxious. Vital Signs Vital Signs Vital Signs: 10/23/21 20:57 10/23/21 23:33 10/24/21 00:44 Temperature 98.5 F 97.9 F Temperature Source Temporal Temporal Pulse Rate 89 86 93 Respiratory Rate 28 H 24 H 22 H Blood Pressure 127/91 H 122/70 H 127/80 H Blood Pressure Mean 103 87 95 Pulse Ox 90 94 94 Oxygen Delivery Method Room Air Room Air Room Air Weight Weight: 136.078 kg Body Mass Index (BMI) 41.8 Results Lab / Micro Data Result Diagrams: 10/23/21 21:45 10/23/21 21:45 Labs: Laboratory Results - last 24 hr 10/23/21 21:45: WBC 7.8, RBC 3.48 L, Hgb 10.0 L, Hct 32.1 L, MCV 92.2, MCH 28.7, MCHC 31.2 L, RDW Std Deviation 44.4 H, RDW Coeff of Alisson 13.2, Plt Count 300, MPV 10.5, Immature Gran % (Auto) 0.300, Neut % (Auto) 72.0 H, Lymph % (Auto) 12.7 L, [place]uyler % (Auto) 10.6 H, Eos % (Auto) 3.8, Baso % (Auto) 0.6, Absolute Neuts (auto) 5.6, Absolute Lymphs (auto) 0.99, Nucleated RBC % 0 10/23/21 21:45: PT 13.0, INR 1.0, APTT 23.8 L 10/23/21 21:45: Sodium 143, Potassium 3.8, Chloride 103, Carbon Dioxide 31.0, Anion Gap 9, BUN 25 H, Creatinine 1.54 H, Estim Creat Clear Calc 50.25, Est GFR (MDRD) Af Amer 58 L, Est GFR (MDRD) Non-Af 48 L, BUN/Creatinine Ratio 16.2, Glucose 119 H, Calcium 8.1 L, Total Bilirubin 0.30, AST 19, ALT 23, Alkaline Phosphatase 103, Troponin I High Sens 11, Total Protein 7.5, Albumin 3.3, Globulin 4.2, Albumin/Globulin Ratio 0.8 L 10/23/21 21:45: B-Natriuretic Peptide 121.6 H 10/23/21 22:25: Lactic Acid 1.0 Radiology Impression Chest X-Ray 10/23/21 22:40 IMPRESSION: Moderate to large left effusion, consider thoracentesis Electronically Signed: Pietro Anderson DO at 23:04 EDT , Assessment & Plan Assessment/Plan (1) Pleural effusion, left: (2) Acute on chronic heart failure with preserved ejection fraction: (3) Diabetes: QUALIFIERS: Diabetes mellitus complication status: with hyperglycemia 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 I agree with radiologist interpretation of Moderate to large left pleural effusion Emergency department labs reviewed showed BNP of 121.6 On home metolazone and Lasix p.o. Home metolazone continued. Aldactone continued. Home Lasix escalated to 40 mg IV twice daily. Potassium supplementation ordered. Transthoracic echocardiogram to evaluate left ventricular wall motion and systolic function. Monitor electrolytes and renal function Aldo wrap to bilateral lower extremities Fluid restriction of 1500 mls daily Weights daily Cardiac and diabetic diet ordered Left pleural effusion Chest x-ray with moderate to large left pleural effusion as above. Therapeutic and diagnostic thoracentesis ordered with fluid studies. Total serum protein on presentation 7.5. Serum LDH ordered. A. fib with RVR Twelve-lead EKG showed A. fib with RVR with ventricular rate of 101. Review of previous environmental monitoring specialist strip on 12/07/2020 showed A. fib Magnesium level 1.7, replaced. Check TSH. Check echocardiogram. [id number] Score at least 4. Patient may be a candidate for chronic anticoagulation. In the setting of pending thoracentesis no anticoagulation initiated at this time. Diabetes mellitus Patient with mild hyperglycemia on presentation. De-escalate home basal insulin. Hold home prandial insulin. Accu-Chek with correction scale insulin ordered. Metformin held. Hypertension Blood pressure is not within goal Home blood pressure medication continued. Trend blood pressure and adjust blood pressure medications. DVT prophylaxis Subcutaneous Lovenox ordered. Charges/Coding Visit Charges Inpatient E&M: 33390 Init Hosp L3
[2021-10-24 01:07] LABS: Troponin-I HS 12 pg/mL (3.0-78.0)
[2021-10-24 01:29] LABS: Magnesium 1.7 mg/dL (1.6-2.6)
[2021-10-24] MEDS: 0.9% Saline Lock 10 ML Syringe IV ×5 (02:36→21:04)
[2021-10-24] MEDS: Potassium Chloride Oral Tablet 20 MEQ 40 MEQ PO ×2 (02:37→09:35)
[2021-10-24] MEDS: Ipratropium/Albuterol Sulfate 3 ML AMPUL.NEB INHALATION ×2 (04:18→18:53)
--- NOTE | 2021-10-24 05:55 | ECHOCS_ITS ---
Reason For Study: Afib/Flutter Procedure This was a 2D Doppler, Color Flow transthoracic echocardiogram. Techncically difficult study, contrast injection performed. Echo done with patient sitting upright in bed. No SSN due to Trach. Exam performed portable in patient room. Left Ventricle Normal LV size. Left ventricular systolic function is normal. The estimated ejection fraction is 55 %. No regional wall motion abnormalities noted. Right Ventricle Normal RV size. Normal systolic function. Pericardium/Pleural Epicardial fat. Medication Diluted definity 2.5ml given slow IV push to enhance endocardial definition. MMode/2D Measurements & Calculations RVDd: 3.9 cm Ao root diam: 3.8 cm LAV(MOD-sp4): 142.5 ml LA dimension: 5.1 cm LA A4 area: 36.4 cm2 Doppler Measurements & Calculations MV E max myron: 88.3 cm/sec Ao V2 max: 134.8 cm/sec LV V1 max: 95.1 cm/sec Ao max P.3 mmHg LV V1 max P.6 mmHg PA V2 max: 84.4 cm/sec ECHO/Echo Complete W/ Contrast Interpretation Summary Normal LV size. Left ventricular systolic function is normal. The estimated ejection fraction is 55 %. Contrast injection was performed. The study was technically limited. The study was technically difficult. Ordering Physician: Gabriel Novak Referring Physician: Chinmay Sin Performed By: Esvin Carey RCS
[2021-10-24 06:17] LABS: Absolute Lymphocyte Count 0.72 X10^3/uL (0.83-4.51); Absolute Neutrophil Count 7.1 X10^3/uL (2.0-7.7); Basophil# 0.04 X10^3/uL; Basophil% 0.4 % (0-1); Eosinophil# 0.31 X10^3/uL; Eosinophils% 3.4 % (0-5); Hematocrit 32.6 % (40-54); Hemoglobin 10.3 g/dL (13.0-16.5); Lymphocyte # 0.72 X10^3/ul (0.83-4.51); Lymphocyte % 7.9 % (19-41); Mean Corp Hgb Conc 31.6 g/dL (32-36); Mean Platelet Vol. 9.3 fl (6.2-12.0); Monocyte# 0.93 X10^3/uL; Monocyte% 10.2 % (0-10); NRBC Flagged by Analyzer 0 % (0-5); Neutrophil # 7.13 X10^3/uL (2.7-7.7); Neutrophil % 77.9 % (47-70); Platelet Count 290 K/mm3 (150-450); RBC Distribution Width SD 44.6 fl (35.1-43.9); Red Blood Count 3.43 M/mm3 (4.6-6.2); White Blood Count 9.2 K/mm3 (4.4-11.0)
[2021-10-24] MEDS: Levothyroxine 150 MCG Tablet PO (06:58)
[2021-10-24] MEDS: Budesonide Respules 0.5 MG/2 ML AMPUL.NEB. 0.25 MG INHALATION ×2 (07:00→18:53)
[2021-10-24 07:06] LABS: Anion Gap 7 (5-15); BUN 26 mg/dL (7-18); BUN/Creat Ratio 18.2 RATIO (10-20); Calcium,Total 8.8 mg/dL (8.5-10.1); Chloride 102 mmol/L (98-107); Creatinine, Serum 1.43 mg/dL (0.70-1.30); EST Glomerular Filtration Rate 53 mL/min (>60); Est Glom Filt Rate - Afr Amer 64 mL/min (>60); Estimated Creatinine Clearance 54.12 ml/min; Glucose 164 mg/dL (74-106); LDH 156 U/L (87-241); Sodium Level 140 mmol/L (136-145); Thyroid Stim Hormone (TSH) 1.94 uIU/mL (0.358-3.74)
[2021-10-24 07:20] LABS: Bedside Glucose 149 mg/dL (74-106)
--- NOTE | 2021-10-24 07:56 | PN.HOSP_ITS ---
Subjective Subjective Follow-up for acute on chronic heart failure and left pleural effusion. Patient is admitted with shortness of breath, orthopnea and left pleural effusion. Denies chest pain pressure or tightness. He states his shortness of breath is better. Patient also had bilateral lower extremity edema. Productive cough with phlegm mortalities normal. Patient has tracheostomy. Objective Data Objective Data Vital Signs: Vital Signs Temp Pulse Resp BP Pulse Ox O2 Del Method FiO2 98.2 F 113 H 22 H 152/91 H 95 Trach Collar 30 10/24/21 02:19 10/24/21 07:00 10/24/21 04:20 10/24/21 02:10/24/21 04:19 10/24/21 04:10/24/21 04:19 Oxygen Delivery Method Trach Collar Weight: 305 lb 12.498 oz Body Mass Index (BMI) 42.6 Intake & Output: Intake and Output for Last 24 Hours 10/22/21 10/23/21 10/24/21 23:59 23:59 23:59 Intake Total 104 / 104 Output Total 400 / 400 Balance -296 / -296 Lab / Micro Data Result Diagrams: 10/24/21 05:39 10/24/21 05:39 Labs: Laboratory Results - last 24 hr 10/23/21 21:45: WBC 7.8, RBC 3.48 L, Hgb 10.0 L, Hct 32.1 L, MCV 92.2, MCH 28.7, MCHC 31.2 L, RDW Std Deviation 44.4 H, RDW Coeff of Alisson 13.2, Plt Count 300, MPV 10.5, Immature Gran % (Auto) 0.300, Neut % (Auto) 72.0 H, Lymph % (Auto) 12.7 L, [place] % (Auto) 10.6 H, Eos % (Auto) 3.8, Baso % (Auto) 0.6, Absolute Neuts (auto) 5.6, Absolute Lymphs (auto) 0.99, Nucleated RBC % 0 10/23/21 21:45: PT 13.0, INR 1.0, APTT 23.8 L 10/23/21 21:45: Sodium 143, Potassium 3.8, Chloride 103, Carbon Dioxide 31.0, Anion Gap 9, BUN 25 H, Creatinine 1.54 H, Estim Creat Clear Calc 50.25, Est GFR (MDRD) Af Amer 58 L, Est GFR (MDRD) Non-Af 48 L, BUN/Creatinine Ratio 16.2, Glucose 119 H, Calcium 8.1 L, Total Bilirubin 0.30, AST 19, ALT 23, Alkaline Phosphatase 103, Troponin I High Sens 11, Total Protein 7.5, Albumin 3.3, Globulin 4.2, Albumin/Globulin Ratio 0.8 L 10/23/21 21:45: B-Natriuretic Peptide 121.6 H 10/23/21 22:25: Lactic Acid 1.0 10/24/21 00:27: Troponin I High Sens 12 10/24/21 00:27: Magnesium 1.7 10/24/21 05:39: WBC 9.2, RBC 3.43 L, Hgb 10.3 L, Hct 32.6 L, MCV 95.0 H, MCH 30.0, MCHC 31.6 L, RDW Std Deviation 44.6 H, RDW Coeff of Alisson 13.0, Plt Count 290, MPV 9.3, Immature Gran % (Auto) 0.200, Neut % (Auto) 77.9 H, Lymph % (Auto) 7.9 L, [place] % (Auto) 10.2 H, Eos % (Auto) 3.4, Baso % (Auto) 0.4, Absolute Neuts (auto) 7.1, Absolute Lymphs (auto) 0.72 L, Nucleated RBC % 0 10/24/21 05:39: Sodium 140, Potassium 4.0, Chloride 102, Carbon Dioxide 31.0, Anion Gap 7, BUN 26 H, Creatinine 1.43 H, Estim Creat Clear Calc 54.12, Est GFR (MDRD) Af Amer 64, Est GFR (MDRD) Non-Af 53 L, BUN/Creatinine Ratio 18.2, Glucose 164 H, Calcium 8.8, Lactate Dehydrogenase 156, TSH 1.94 10/24/21 06:58: POC Glucose 149 H Radiography Diagnostic Testing: Radiology Impression Chest X-Ray 10/23/21 22:40 IMPRESSION: Moderate to large left effusion, consider thoracentesis Electronically Signed: Pietro Anderson DO at 23:04 EDT Reading Location ID and State: [facility] / [place] Tel , Service support , Physical Exam Narrative Physical exam General: Alert, Oriented x3, Cooperative, morbid obesity BMI 42.6 kg/m? HEENT: Atraumatic, PERRLA, EOMI, Normocephalic Oral: No Gingival or Mucosal Lesions/ Ulcerations Neck: Tracheostomy, on trach collar. Supple, No JVD, Negative Carotid Bruits Lungs: Air entry diminished left more than right. Left large pleural effusion with stony dullness. Cardiovascular: A. fib with RVR rhythm, Normal S1, Normal S2, No murmurs Abdomen: Bowel Sounds Present, Soft, Non Tender, Non-Distended : No renal angle tenderness. No suprapubic tenderness. Extremities: Bilateral pitting below knee edema, left more than right, Capillary Refill Less than 3 Seconds Skin: No rashes, No breakdown Musculoskeletal: ROM restricted. Bilateral knee arthritis. No Tenderness to Palpation of Joints or Extremities Neurological: Cranial nerves II-XII grossly intact, DTR 2+/4 Psych/Mental Status: Flat affect. 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 1. Acute Exacerbation of heart failure with preserved EF: Patient is being admitted in PCU. Heart failure core measures including intake and output, fluid restriction less than 1500 mL, daily weight monitoring, kidney and electrolytes monitoring. Chest x-ray individually reviewed shows moderate to large left pleural effusion. BNP elevated. On diuretic Lasix, metolazone and Aldactone. Repeat echo ordered yesterday pending. 2. Left pleural effusion Chest x-ray with moderate to large left pleural effusion as above. Therapeutic and diagnostic thoracentesis ordered with fluid studies. Total serum protein on presentation 7.5. 3. A. fib with RVR Twelve-lead EKG showed A. fib with RVR with ventricular rate of 101. residential monitor shows A. fib with heart rate 110s to 120s. Magnesium 1.7. [id number] score 4. Patient not on anticoagulation at home without aspirin 325 mg daily. Anticoagulation not initiated as patient is pending thoracocentesis. Started on Cardizem CD 120 mg daily. Not a good candidate for beta-north as patient has COPD with heart failure exacerbation Magnesium level 1.7, replaced. TSH normal. 3. Diabetes mellitus type II Patient with mild hyperglycemia on presentation. De-escalate home basal insulin. Hold home prandial insulin. Accu-Chek with correction scale insulin ordered. Metformin held. 4. Hypertension: Blood pressure was elevated during admission. Currently in normal range. 5. DVT prophylaxis Subcutaneous Lovenox ordered. Laboratory Results 10/23/21 21:45: WBC 7.8, RBC 3.48 L, Hgb 10.0 L, Hct 32.1 L, MCV 92.2, MCH 28.7, MCHC 31.2 L, RDW Std Deviation 44.4 H, RDW Coeff of Alisson 13.2, Plt Count 300, MPV 10.5, Immature Gran % (Auto) 0.300, Neut % (Auto) 72.0 H, Lymph % (Auto) 12.7 L, [place] % (Auto) 10.6 H, Eos % (Auto) 3.8, Baso % (Auto) 0.6, Absolute Neuts (auto) 5.6, Absolute Lymphs (auto) 0.99, Nucleated RBC % 0 10/23/21 21:45: PT 13.0, INR 1.0, APTT 23.8 L 10/23/21 21:45: Sodium 143, Potassium 3.8, Chloride 103, Carbon Dioxide 31.0, Anion Gap 9, BUN 25 H, Creatinine 1.54 H, Estim Creat Clear Calc 50.25, Est GFR (MDRD) Af Amer 58 L, Est GFR (MDRD) Non-Af 48 L, BUN/Creatinine Ratio 16.2, Glucose 119 H, Calcium 8.1 L, Total Bilirubin 0.30, AST 19, ALT 23, Alkaline Phosphatase 103, Troponin I High Sens 11, Total Protein 7.5, Albumin 3.3, Globulin 4.2, Albumin/Globulin Ratio 0.8 L 10/23/21 21:45: B-Natriuretic Peptide 121.6 H 10/23/21 22:25: Lactic Acid 1.0 10/24/21 00:27: Troponin I High Sens 12 10/24/21 00:27: Magnesium 1.7 10/24/21 05:39: WBC 9.2, RBC 3.43 L, Hgb 10.3 L, Hct 32.6 L, MCV 95.0 H, MCH 30.0, MCHC 31.6 L, RDW Std Deviation 44.6 H, RDW Coeff of Alisson 13.0, Plt Count 290, MPV 9.3, Immature Gran % (Auto) 0.200, Neut % (Auto) 77.9 H, Lymph % (Auto) 7.9 L, [place] % (Auto) 10.2 H, Eos % (Auto) 3.4, Baso % (Auto) 0.4, Absolute Neuts (auto) 7.1, Absolute Lymphs (auto) 0.72 L, Nucleated RBC % 0 10/24/21 05:39: Sodium 140, Potassium 4.0, Chloride 102, Carbon Dioxide 31.0, Anion Gap 7, BUN 26 H, Creatinine 1.43 H, Estim Creat Clear Calc 54.12, Est GFR (MDRD) Af Amer 64, Est GFR (MDRD) Non-Af 53 L, BUN/Creatinine Ratio 18.2, Glucose 164 H, Calcium 8.8, Lactate Dehydrogenase 156, TSH 1.94 10/24/21 06:58: POC Glucose 149 H 10/24/21 11:36: POC Glucose 134 H
--- NOTE | 2021-10-24 07:58 | US_ITS ---
PROCEDURE: ULTRASOUND GUIDED THORACENTESIS. CLINICAL INDICATION: Left pleural effusion. PHYSICIAN: Brice Caballero MD MEDICATIONS: 1% lidocaine administered subcutaneously for local anesthesia. ACCESS SITE: Left lower thorax, posterior approach. CATHETER: 5 Panamanian thoracentesis needle/catheter system. FLUID: Approximately 1800 mL of left pleural fluid removed. COMPLICATIONS: None immediate. The risks, benefits, and alternatives to the procedure and sedation were explained to the patient. The specific risks of bleeding, infection, and pneumothorax requiring chest tube insertion were discussed and accepted. Written informed consent was obtained. PROCEDURE: Ultrasonographic evaluation of the left lower pleural space was carried out. An adequate pocket was identified. The patient was placed in the sitting, upright position. The overlying skin was prepped and draped in sterile fashion. 1% lidocaine was administered subcutaneously for local anesthesia. Under ultrasound guidance, a 5 Panamanian thoracentesis needle/catheter system was advanced into the left posterior lower pleural fluid collection. The inner stylet was removed and there was spontaneous flow of pleural fluid. Approximately 1800 mL of fluid was manually aspirated. The catheter was removed. Hemostasis was achieved and a sterile dressing was applied. A specimen was collected and sent to the laboratory for analysis, as requested by the referring clinician. The patient tolerated the procedure well, without immediate complications. A chest x-ray was ordered. US/Thoracentesis W US IMPRESSION: Successful ultrasound-guided left thoracentesis. Electronically Signed: Daniel Caballero MD at 16:22 EDT ,
[2021-10-24] MEDS: Spironolactone 25 MG Tablet PO (09:26)
[2021-10-24] MEDS: Aspirin E.C. 325 MG Tablet PO (09:26)
[2021-10-24] MEDS: amLODIPine 2.5 MG Tablet PO (09:26)
[2021-10-24] MEDS: Lisinopril 40 MG Tablet PO (09:26)
[2021-10-24] MEDS: Metolazone 2.5 MG Tablet PO (09:27)
[2021-10-24] MEDS: Furosemide 40 MG/4 ML Vial IV ×2 (09:27→17:18)
--- NOTE | 2021-10-24 11:00 | CASEMGMT ---
ANUSHA EDGAR Face to Face with patient for initial transition planning/care coordination assessment. ANUSHA EDGAR introduced self and role at [facility]. Patient sitting on edge of bed, alert and oriented. Patient willing to participate in assessment and is able to answer all questions appropriately. Care providers, pharmacy, and demographics verified. Patient wishes to discharge home, denies need for home health at this time. Patient states he has no further needs or concerns at this time. CM to follow for discharge planning needs that may arise. PCP: January Specialists: Idania, Children'S Choir Director; Arlene wood router; , Dispatcher Motor Vehicle Preferred Pharmacy: [facility]; [facility] retail at discharge. Insurance: [employer] Prescription Benefit: yes Living Will/HPOA: none LNOK: Living Arrangements: Patient lives with in a single story home with 3 steps to enter the home. Patient states he is independent at home. Transportation: DME/HHC: Patient states he has raised toilet, cane, walker, nebulizer, pulse ox, and home oxygen through [employer] at 4lpm via trach at HS. No previous HHC or SNF. ANUSHA EDGAR called [facility] and verified oxygen at 4lpm at . Will monitor for portability at discharge. Disposition Plan: Patient to discharge home with family support and follow-up plans in place. Hanna DURHAM, RN, CM
[2021-10-24 12:00] LABS: Bedside Glucose 134 mg/dL (74-106)
[2021-10-24] MEDS: dilTIAZem CD 120 MG Capsule PO ×2 (12:45→23:43)
[2021-10-24] MEDS: Lidocaine 2% (10 ml mdv) 10 ML Vial INFILT (13:55)
--- NOTE | 2021-10-24 14:25 | RAD_ITS ---
INDICATION: pneumothorax -- immediately post thoracentesis EXAMINATION/TECHNIQUE: X-RAY - XR Chest 2 Views COMPARISON: 10/23/2021. FINDINGS: LINES/DEVICES: None. LUNGS: Improved aeration of the left hemithorax is visualized in comparison to the prior study, decreased opacification of the left lower lung field consistent a significant decrease in the previously visualized left pleural fluid, no evidence of pneumothorax is seen. The right hemithorax of serous unremarkable aeration. Peribronchial cuffing and mild prominence of the bronchovascular markings in the perihilar regions bilaterally. MEDIASTINUM AND CARDIOVASCULAR STRUCTURES: The heart is enlarged in size demonstrating no significant change in comparison to the prior study. BONES AND SOFT TISSUES: Degenerative bone changes are seen. RAD/Chest Insp/Exp 2 View IMPRESSION: Improved aeration of the left hemithorax, no evidence of pneumothorax is seen. Electronically Signed: Daniel Caballero MD at 14:43 EDT ,
[2021-10-24 14:41] LABS: Cytology, Body Fluid / CSF SEE PATHOLOGY REPORT
[2021-10-24 15:34] LABS: Glucose, Body Fluid 162 mg/dL (40-70); LDH,Body Fluid 80 Units/l (Not Establ.); Protein, Body Fluid 3.9 g/dL (Not Establ.)
[2021-10-24 16:15] LABS: Body Fluid Mononuclear WBC # 0.494 10^3/uL; Body Fluid Mononuclear WBC % 87.9 %; Body Fluid Polynuclear WBC # 0.068 10^3/uL; Body Fluid Polynuclear WBC % 12.1 %; Body Fluid Total Cells Counted 0.657 10^3/ul; White Blood Count/Body Fluid 0.562 10^3/uL
[2021-10-24 16:34] LABS: Red Cell Count/Body Fluid 22 /mm3
[2021-10-24 16:35] LABS: Appearance/Body Fluid CLEAR; Auto B Fluid Analyzer BKGD Ct COUNTS W/IN LIMITS (W/IN LIMITS); Color/Body Fluid YELLOW; Lymphocytes 52 %; Monocytes 6 %; Neutrophil (Segs) 20 %; Source- Body Fluid THORACENTESIS
[2021-10-24 16:36] LABS: Body Fluid QC Type(s) BF1Q,BF2Q; Other Cell Type/BF 22 %
[2021-10-24 17:21] LABS: Bedside Glucose 141 mg/dL (74-106)
--- NOTE | 2021-10-24 19:19 | CPS ---
pt started to vomit after trach suction-nurse aware
[2021-10-24] MEDS: Ondansetron 4 MG/2 ML Vial IV (19:26)
[2021-10-24] MEDS: Atorvastatin Calcium 40 MG Tablet PO (20:55)
[2021-10-24] MEDS: Insulin Glargine-YFGN 100 UNIT/ML Pen 15 UNIT SC (20:55)
[2021-10-24] MEDS: Insulin Lispro 100 UNIT/ML INSULN.PEN SC (20:58)
[2021-10-24 21:46] LABS: Bedside Glucose 153 mg/dL (74-106)
[2021-10-25] VITALS (20 sets, daily range): BP systolic 96–126; BP diastolic 57–78; PULSE 81–111; RESP 18–22; TEMP 36.9–37.7; O2SAT 92–97
[2021-10-25] MEDS: Levothyroxine 150 MCG Tablet PO (05:50)
[2021-10-25 06:34] LABS: Anion Gap 5 (5-15); BUN 29 mg/dL (7-18); BUN/Creat Ratio 16.3 RATIO (10-20); Calcium,Total 8.6 mg/dL (8.5-10.1); Chloride 103 mmol/L (98-107); Creatinine, Serum 1.78 mg/dL (0.70-1.30); EST Glomerular Filtration Rate 41 mL/min (>60); Est Glom Filt Rate - Afr Amer 49 mL/min (>60); Estimated Creatinine Clearance 43.48 ml/min; Glucose 147 mg/dL (74-106); Magnesium 2.2 mg/dL (1.6-2.6); Phosphorus 3.7 mg/dL (2.5-4.9); Potassium 5.8 mmol/L (3.5-5.1); Sodium Level 140 mmol/L (136-145)
[2021-10-25] MEDS: Budesonide Respules 0.5 MG/2 ML AMPUL.NEB. 0.25 MG INHALATION ×2 (06:49→19:31)
[2021-10-25 07:01] LABS: Bedside Glucose 120 mg/dL (74-106)
--- NOTE | 2021-10-25 07:39 | PCM.PN.HOSP ---
Subjective Subjective Follow-up for heart failure exacerbation Objective Data Objective Data Vital Signs: Vital Signs Temp Pulse Resp BP Pulse Ox O2 Del Method O2 Flow Rate 98.5 F 88 20 H 126/76 H 96 Trach Collar 7 10/25/21 07:33 10/25/21 07:33 10/25/21 07:33 10/25/21 07:33 10/25/21 07:33 10/25/21 07:33 10/25/21 07:33 FiO2 30 10/25/21 07:33 Oxygen Flow Rate (L/min) [6] 2 Oxygen Flow Rate (L/min) [5] 7 Oxygen Flow Rate (L/min) [4] 7 Oxygen Flow Rate (L/min) [3] 7 Oxygen Flow Rate (L/min) [2] 7 Oxygen Flow Rate (L/min) [1 ( 8 Initial Baseline)] Oxygen Flow Rate (L/min) 7 Oxygen Delivery Method [7] Trach Collar Oxygen Delivery Method [6] Trach Collar Oxygen Delivery Method [5] Trach Collar Oxygen Delivery Method [4] Trach Collar Oxygen Delivery Method [3] Trach Collar Oxygen Delivery Method [2] Trach Collar Oxygen Delivery Method [1 ( Trach Collar Initial Baseline)] Oxygen Delivery Method Trach Collar Weight: 302 lb 0.533 oz Body Mass Index (BMI) 42.6 Intake & Output: Intake and Output for Last 24 Hours 10/23/21 10/24/21 10/25/21 23:59 23:59 23:59 Intake Total 524 / 524 60 / 60 Output Total 2200 / 2200 Balance -1676 / -1676 60 / 60 Lab / Micro Data Result Diagrams: 10/24/21 05:39 10/25/21 14:30 Labs: Laboratory Results - last 24 hr 10/24/21 11:36: POC Glucose 134 H 10/24/21 14:39: Fluid Glucose 162 H, Fluid Total Protein 3.9, Fluid LDH 80 10/24/21 14:40: Fluid Source THORACENTESIS, Fluid Color YELLOW, Fluid Appearance CLEAR, Fluid WBC 0.562, Fluid RBC 22, Fluid Tot Cell Count 0.657, Fld Polynuclear WBCs # 0.068, Fld Polynuclear WBCs % 12.1, Fluid Mononuclear WBCs 0.494, Fld Mononuclear WBCs % 87.9, Fluid Neutrophils 20, Fluid Lymphocytes 52, Fluid Monocytes 6, Fluid Other Cells 22, Fl Pathologist Comment May follow, Fluid Comment 2 SEE COMMENT 10/24/21 16:06: POC Glucose 141 H 10/24/21 20:51: POC Glucose 153 H 10/25/21 05:35: Sodium 140, Potassium 5.8 H, Chloride 103, Carbon Dioxide 32.0, Anion Gap 5, BUN 29 H, Creatinine 1.78 H, Estim Creat Clear Calc 43.48, Est GFR (MDRD) Af Amer 49 L, Est GFR (MDRD) Non-Af 41 L, BUN/Creatinine Ratio 16.3, Glucose 147 H, Calcium 8.6, Phosphorus 3.7, Magnesium 2.2 10/25/21 06:36: POC Glucose 120 H Radiography Diagnostic Testing: Radiology Impression Echocardiogram 10/24/21 05:55 Interpretation Summary Normal LV size. Left ventricular systolic function is normal. The estimated ejection fraction is 55 %. Contrast injection was performed. The study was technically limited. The study was technically difficult. Ordering Physician: Gabriel Novak Referring Physician: Chinmay Sin Performed By: Esvin Carey RCS Thoracentesis Ultrasound 10/24/21 07:58 IMPRESSION: Successful ultrasound-guided left thoracentesis. Electronically Signed: Daniel Caballero MD at 16:22 EDT , Chest X-Ray 10/24/21 14:25 IMPRESSION: Improved aeration of the left hemithorax, no evidence of pneumothorax is seen. Electronically Signed: Daniel Caballero MD at 14:43 EDT , Physical Exam Narrative Seen and examined. Patient shortness of breath is better. Leg swelling mildly improved but he still has significant edema. Patient creatinine went up. Physical exam General: Alert, Oriented x3, Cooperative, morbid obesity BMI 42.6 kg/m? HEENT: Atraumatic, PERRLA, EOMI, Normocephalic Oral: No Gingival or Mucosal Lesions/ Ulcerations Neck: Tracheostomy, on trach collar. Supple, No JVD, Negative Carotid Bruits Lungs: Air entry diminished in bilateral lung bases. Status post left thoracocentesis. No crepitation/rhonchi. Cardiovascular: A. fib rhythm, Normal S1, Normal S2, No murmurs Abdomen: Bowel Sounds Present, Soft, Non Tender, Non-Distended : No renal angle tenderness. No suprapubic tenderness. Extremities: Bilateral pitting edema below knee nico, Capillary Refill Less than 3 Seconds Skin: No rashes, No breakdown Musculoskeletal: ROM restricted. Bilateral knee arthritis. No Tenderness to Palpation of Joints or Extremities Neurological: Cranial nerves II-XII grossly intact, DTR 2+/4 Psych/Mental Status: Flat affect. Assessment & Plan Assessment/Plan (1) Pleural effusion, left: (2) Acute on chronic heart failure with preserved ejection fraction: (3) Diabetes: QUALIFIERS: Diabetes mellitus complication status: with hyperglycemia Diabetes mellitus intermediate accountant insulin use: with intermediate accountant use Diabetes mellitus type: type 2 Qualified Code(s): E11.65 - Type 2 diabetes mellitus with hyperglycemia; Z79.4 - terminologist (current) use of insulin (4) Paroxysmal atrial fibrillation with RVR: PLAN: Plan This is 66-year-old gentleman admitted with progressive worsening of shortness of breath, weight gain, bilateral lower extremity edema, large pleural effusion consistent with acute on chronic HFpEF. 1. Acute Exacerbation of heart failure with preserved EF: Patient is being admitted in PCU. Heart failure core measures including intake and output, fluid restriction less than 1500 mL, daily weight monitoring, kidney and electrolytes monitoring. Chest x-ray individually reviewed shows moderate to large left pleural effusion. BNP elevated. On diuretic Lasix, metolazone and Aldactone. Repeat echo ordered yesterday pending. 10/25: Patient blood pressure was low in the morning. BP 102/76 Lasix dose decreased to 20 mg IV twice daily. 10/25 acute kidney injury on CKD stage IIIa: Patient baseline creatinine 1.43 with estimated creatinine clearance 54 mL/min. Patient creatinine jumped up to 1.78 with hyperkalemia K5.8. Lisinopril, spironolactone and potassium supplement discontinued. Kayexalate given. Repeat potassium 4.6. Serum magnesium and phosphorus level normal. 2D echo EF 55%, study technically limited. 2. Left pleural effusion Chest x-ray with moderate to large left pleural effusion as above. Therapeutic and diagnostic thoracentesis ordered with fluid studies. Total serum protein on presentation 7.5. 10/25: Patient has improvement in shortness of breath. Repeat chest x-ray no pneumothorax. Had thoracocentesis of 1800 mL transitive fluid. As per lights criteria, it shows exudate but patient had diuretic since bleeding therefore serum fluid and LDH ordered. Cytology pending. 3. A. fib with RVR Twelve-lead EKG showed A. fib with RVR with ventricular rate of 101. athletic monitor shows A. fib with heart rate 110s to 120s. Magnesium 1.7. [id number] score 4. Patient not on anticoagulation at home without aspirin 325 mg daily. Anticoagulation not initiated as patient is pending thoracocentesis. Started on Cardizem CD 120 mg daily. Not a good candidate for beta-north as patient has COPD with heart failure exacerbation Magnesium level 1.7, replaced. TSH normal. 3. Diabetes mellitus type II Patient with mild hyperglycemia on presentation. De-escalate home basal insulin. Hold home prandial insulin. Accu-Chek with correction scale insulin ordered. Metformin held. 4. Hypertension: Blood pressure was elevated during admission. Currently in normal range. 5. DVT prophylaxis Subcutaneous Lovenox ordered. Total time of the visit including total time spent in counseling or coordination of care, (more than 50% of the total time, spent in obtaining medical information from nurses and other ancillary care providers,explaining to the patient about labs, imaging, diagnosis and management of active complex medical conditions), discussion with computer animator, review of labs and imaging is 40 minutes. Laboratory Results 10/24/21 14:40: Fluid Source THORACENTESIS, Fluid Color YELLOW, Fluid Appearance CLEAR, Fluid WBC 0.562, Fluid RBC 22, Fluid Tot Cell Count 0.657, Fld Polynuclear WBCs # 0.068, Fld Polynuclear WBCs % 12.1, Fluid Mononuclear WBCs 0.494, Fld Mononuclear WBCs % 87.9, Fluid Neutrophils 20, Fluid Lymphocytes 52, Fluid Monocytes 6, Fluid Other Cells 22, Fl Pathologist Comment Reviewed, Fluid Comment 2 SEE COMMENT 10/24/21 16:06: POC Glucose 141 H 10/24/21 20:51: POC Glucose 153 H 10/25/21 05:35: Sodium 140, Potassium 5.8 H, Chloride 103, Carbon Dioxide 32.0, Anion Gap 5, BUN 29 H, Creatinine 1.78 H, Estim Creat Clear Calc 43.48, Est GFR (MDRD) Af Amer 49 L, Est GFR (MDRD) Non-Af 41 L, BUN/Creatinine Ratio 16.3, Glucose 147 H, Calcium 8.6, Phosphorus 3.7, Magnesium 2.2 10/25/21 06:36: POC Glucose 120 H 10/25/21 11:11: POC Glucose 177 H 10/25/21 14:30: Potassium 4.6 Charges/Coding Visit Charges Inpatient E&M: 91506 Subs Hosp L3
--- NOTE | 2021-10-25 09:48 | EKG12_ITS ---
Test Reason : Blood Pressure : / mmHG Vent. Rate : 092 BPM Atrial Rate : 000 BPM P-R Int : 000 ms QRS Dur : 084 ms QT Int : 344 ms P-R-T Axes : 000 033 133 degrees QTc Int : 425 ms Atrial fibrillation Low voltage QRS Nonspecific T wave abnormality Abnormal ECG When compared with ECG of 23-OCT-2021 22:34, Nonspecific T wave abnormality, improved in Lateral leads Confirmed by BALTAZAR CHENG, ALEXANDER ([id number]), video tape editor ERON FUENTES ([id number]) on 10/26/2021 1:42:43 PM Referred By: OMAR Confirmed By:ALEXANDER LEDESMA MD
[2021-10-25] MEDS: Sodium Polystyrene Sulfonate 15 GM/60 ML UDC PO (10:01)
[2021-10-25] MEDS: dilTIAZem CD 120 MG Capsule PO (10:01)
[2021-10-25] MEDS: Aspirin E.C. 325 MG Tablet PO (10:01)
[2021-10-25] MEDS: Furosemide 20 MG/2 ML VIAL IV ×2 (10:02→16:07)
[2021-10-25] MEDS: Acetaminophen 325 MG Tablet 650 MG PO ×3 (10:02→22:18)
[2021-10-25] MEDS: 0.9% Saline Lock 10 ML Syringe IV ×2 (10:05→16:08)
[2021-10-25] MEDS: Insulin Lispro 100 UNIT/ML INSULN.PEN SC ×2 (11:13→22:12)
[2021-10-25 11:55] LABS: Bedside Glucose 177 mg/dL (74-106)
--- NOTE | 2021-10-25 12:30 | CON.PCM.RE_ITS ---
Assessment & Plan Assessment/Plan (1) Acute worsening of stage 3 chronic kidney disease: PLAN: baseline creatinine 1.4 increased to 1.78 likely prerenal. Hold lisinopril. Maintain SBP >100 (2) Chronic renal failure, stage 3 (moderate): PLAN: baseline creatinine 1.4 (3) Paroxysmal atrial fibrillation with RVR: PLAN: rate controlled (4) Acute on chronic heart failure with preserved ejection fraction: PLAN: continue diuretcics s/p left pleural effusion thoracentesis (5) Laryngeal cancer: PLAN: s/p trach (6) Pleural effusion, left: PLAN: s/p thoracentesis 1.8L (7) Edema: PLAN: continue diuretics (8) Essential hypertension: (9) Type 2 diabetes with stage 3 chronic kidney disease GFR 30-59: QUALIFIERS: Chronic kidney disease stage 3 subtype: stage 3a (GFR 45-59) Diabetes mellitus termite renewal inspector insulin use: with [facility] use Qualified Code(s): E11.22 - Type 2 diabetes mellitus with diabetic chronic kidney disease; N18.31 - Chronic kidney disease, stage 3a; Z79.4 - skilled nursing (current) use of insulin (10) COPD (chronic obstructive pulmonary disease): (11) Malignant neoplasm of head, neck and face: (12) Atherosclerosis of coronary artery of [place] heart without angina pectoris: QUALIFIERS: Coronary Disease-Associated Artery/Lesion type: [place] artery Qualified Code(s): I25.10 - Atherosclerotic heart disease of [place] coronary artery without angina pectoris (13) Hyperkalemia: PLAN: hold lisinopril. aldactone, KCL. kayexalate, low K diet (14) Morbid obesity: HPI Consult Data Date of Consult: 10/25/21 HPI Narrative Reason for Consultation: acute on CKD stage 3, hyperkalemia HPI Narrative: ABDIEL CORTEZ, is a 66 M who presents tp ED for increased shortness of gini th, edema past week. He had increased productive cough. denied fever, chills. Creatinine 1.43 eGFR 54cc/min from diabetic nephropathy on admit increased to 1.78 eGFR 43cc/min with K 5.8 today. He is on lisinopril, spironolactone and KCL discontinued. Kayexalate ordered for high potassium. He underwent left thoracentesis for pleural effusion. He had orthopnea. Breathing better today. Increased urine volume since admit. Still with leg edema. He has atrial fibrillation, chronic diastolic HF, diabetes, hypertension, CAD. He has a history of laryngeal cancer, COPD. Denied nausea, vomiting. [facility] Medical History (HFpEF) heart failure with preserved ejection fraction Acute hypercapnic respiratory failure Ambulates with cane Anxiety Atherosclerosis of coronary artery of [place] heart without angina pectoris Back pain Benign neoplasm of colon Cholelithiasis Chronic diastolic (congestive) heart failure COPD (chronic obstructive pulmonary disease) COPD with acute exacerbation Diabetes Diabetes mellitus, type II Diverticulosis of colon (without mention of hemorrhage) Easy bruising Emphysema, unspecified Esophageal dysmotility Essential hypertension Excessive bleeding Former smoker Gastric reflux Gastroenteritis Gout Hiatal hernia History of colon polyps History of renal disease History of steroid therapy History of stress test Hyperlipidemia Hypothyroidism Hypoxemia Injury of back Injury of head and neck Insomnia Kidney failure Leg cramps Malignant neoplasm of head, neck and face Migraine headache Morbid obesity Normal stress echocardiogram Obesity On home oxygen therapy Pleural effusion, left Polyneuropathy due to type 2 diabetes mellitus Shortness of breath Shortness of breath on exertion Thyroid disease Type 2 diabetes mellitus without complication Type 2 diabetes with stage 3 chronic kidney disease GFR 30-59 Walker as ambulation aid Wears glasses Home Medications levothyroxine 150 mcg tablet 150 mcg PO DAILY hypothyroidism 06/04/14 [History Last Taken 03/12/19] atorvastatin 40 mg tablet 40 mg PO QHS cholesterol 04/12/17 [History Last Taken 03/11/19] ipratropium 0.5 mg-albuterol 3 mg (2.5 mg base)/3 mL nebulization soln 3 ml inhalation Q6H PRN Sob &/Or Wheezing 04/12/17 [History Last Taken 03/12/19] budesonide 0.25 mg/2 mL suspension for nebulization 2 ml inhalation BID sob 07/18/18 [History Last Taken 03/12/19] furosemide 40 mg tablet 40 mg PO BID diuretic/water pill 07/18/18 [History Last Taken 03/12/19] insulin aspart U-100 100 unit/mL (3 mL) subcutaneous pen 10 unit subcut LUNCH diabetes 09/29/18 [History Last Taken 03/11/19] insulin aspart U-100 100 unit/mL (3 mL) subcutaneous pen 10 units subcut BREAKFAST diabetes 09/29/18 [History Last Taken 03/12/19] insulin aspart U-100 100 unit/mL (3 mL) subcutaneous pen 15 units subcut DINNER diabetes 09/29/18 [History Last Taken 03/11/19] spironolactone 25 mg tablet 25 mg PO DAILY 07/28/20 [History Last Taken Unknown] amlodipine 2.5 mg tablet 2.5 mg PO DAILY #90 tabs 01/25/21 [Rx Last Taken Unknown] metolazone 2.5 mg tablet 2.5 mg PO .M/W/F #60 tabs 01/25/21 [Rx Last Taken Unknown] prednisone 20 mg tablet 20 mg PO DAILY PRN Shortness Of Breath 01/25/21 [History Last Taken Unknown] flash glucose sensor (FreeStyle Zayra 2 Sensor kit) #2 ea 05/17/21 [Rx Last Taken Unknown] lisinopril 40 mg tablet 40 mg PO DAILY 06/06/21 [History Last Taken Unknown] aspirin 81 mg tablet,delayed release 325 mg PO DAILY@0800 [facility] 08/25/21 [History Last Taken Unknown] Trulicity 4.5 mg/0.5 mL subcutaneous pen injector (dulaglutide) 4.5 mg (0.5 mL) subcut QWEEK #6 mL 10/05/21 [Rx Last Taken Unknown] Levemir FlexTouch U-100 Insuln 100 unit/mL (3 mL) subcutaneous pen (insulin detemir U-100) 42 unit (0.42 mL) subcut QHS #39 mL 10/13/21 [Rx Last Taken Un known] metformin 500 mg tablet,extended release 24 hr 500 mg PO BID dm #180 tabs 10/19/21 [Rx Last Taken Unknown] Allergy/AdvReac Type Severity Reaction Status Date / Time No Known Allergies Allergy Verified 10/23/21 21:04 Family History Mother Diabetes Hypertension Kidney disease Heart failure Father CVA (cerebral vascular accident) Hypertension Heart disease ischemic Brother Diabetes Surgical History History of cardiac catheterization History of exploratory laparotomy History of laryngectomy (2007) History of thyroidectomy Hx of colonoscopy Presence of tracheostomy Social History Smoking Status: Former smoker Smokeless tobacco user: snuff how long ago did patient quit smokin years ago alcohol intake: never substance use type: does not use caffeine: Yes what type of physical activity do you participate in: none frequency: does not exercise ROS Constitutional Constitutional: Reports chills, weakness and weight gain; Denies fever(s) Eyes Eyes: Denies loss of vision Cardiovascular Cardiovascular: Reports dyspnea on exertion, edema, irregular heart rhythm and leg edema; Denies chest pain or syncope Respiratory/Chest Respiratory/Chest: Reports productive cough, shortness of breath at rest and wheezing Gastrointestinal Gastrointestinal: Denies abdominal pain, anorexia, diarrhea or vomiting Genitourinary Genitourinary: Denies difficulty urinating Musculoskeletal Musculoskeletal: Denies myalgias Integumentary Integumentary: Denies rash Neurologic Neurologic: Reports weakness; Denies focal weakness, frequent falls or tremor(s) Psychiatric Psychiatric: Denies anxiety or confusion Endocrine Endocrinology: Reports cold intolerance Hematologic/Lymphatic Hematologic/Lymphatic: Reports easy bruising Physical Exam Const alert, oriented x3 and no apparent distress Constitutional Narrative: s/p trach Nutritional Appearance: obese morbidly obese Eyes PERRL and no scleral icterus Resp Resp Narrative: crackles rt base Auscultation: crackles Cardio Cardio Narrative: afib Rhythm: abnormal rhythm GI non-tender and non-distended GI Narrative: obese Auscultation: normoactive bowel sounds Palpation: soft Narrative: urine output not measured Extremity General Extremity: edema bilateral lower extremity Skin General Skin Exam: ecchymosis Neuro CN's II-XII intact bilaterally and no focal motor deficits Sensorium / Orientation: awake and alert Psych cooperative Medical Records Data Attestation: I reviewed the patient's medical records Lab / Micro Data Result Diagrams: 10/24/21 05:39 10/25/21 05:35 Labs: Laboratory Results - last 24 hr 10/24/21 14:39: Fluid Glucose 162 H, Fluid Total Protein 3.9, Fluid LDH 80 10/24/21 14:40: Fluid Source THORACENTESIS, Fluid Color YELLOW, Fluid Appearance CLEAR, Fluid WBC 0.562, Fluid RBC 22, Fluid Tot Cell Count 0.657, Fld Polynuclear WBCs # 0.068, Fld Polynuclear WBCs % 12.1, Fluid Mononuclear WBCs 0.494, Fld Mononuclear WBCs % 87.9, Fluid Neutrophils 20, Fluid Lymphocytes 52, Fluid Monocytes 6, Fluid Other Cells 22, Fl Pathologist Comment May follow, Fluid Comment 2 SEE COMMENT 10/24/21 16:06: POC Glucose 141 H 10/24/21 20:51: POC Glucose 153 H 10/25/21 05:35: Sodium 140, Potassium 5.8 H, Chloride 103, Carbon Dioxide 32.0, Anion Gap 5, BUN 29 H, Creatinine 1.78 H, Estim Creat Clear Calc 43.48, Est GFR (MDRD) Af Amer 49 L, Est GFR (MDRD) Non-Af 41 L, BUN/Creatinine Ratio 16.3, Glucose 147 H, Calcium 8.6, Phosphorus 3.7, Magnesium 2.2 10/25/21 06:36: POC Glucose 120 H 10/25/21 11:11: POC Glucose 177 H Rhythm Strip Rhythm Strip: A-fib Radiology Impression Thoracentesis Ultrasound 10/24/21 07:58 IMPRESSION: Successful ultrasound-guided left thoracentesis. Electronically Signed: Daniel Caballero MD at 16:22 EDT Reading Location ID and State: [facility] / [place] Tel , Service support , Chest X-Ray 10/24/21 14:25 IMPRESSION: Improved aeration of the left hemithorax, no evidence of pneumothorax is seen. Electronically Signed: Daniel Caballero MD at 14:43 EDT ,
[2021-10-25 13:03] LABS: Pathologist Comment/Body Fluid Reviewed
[2021-10-25 15:19] LABS: Potassium 4.6 mmol/L (3.5-5.1)
[2021-10-25 17:00] LABS: Bedside Glucose 147 mg/dL (74-106)
--- NOTE | 2021-10-25 19:48 | CPS ---
MED IS ORDERED PULMICORT 0.25 SO HALF OF THE VIAL OF 0.5 WAS GIVEN
[2021-10-25] MEDS: Atorvastatin Calcium 40 MG Tablet PO (22:12)
[2021-10-25] MEDS: Insulin Glargine-YFGN 100 UNIT/ML Pen 15 UNIT SC (22:12)
[2021-10-25 23:15] LABS: Bedside Glucose 152 mg/dL (74-106)
[2021-10-26] VITALS (17 sets, daily range): BP systolic 92–118; BP diastolic 60–67; PULSE 77–107; RESP 14–28; TEMP 35.8–37.1; O2SAT 90–97
[2021-10-26] MEDS: 0.9% Saline Lock 10 ML Syringe IV ×3 (03:26→17:23)
[2021-10-26] MEDS: Acetaminophen 325 MG Tablet 650 MG PO ×2 (03:31→17:23)
[2021-10-26] MEDS: Levothyroxine 150 MCG Tablet PO (05:47)
[2021-10-26] MEDS: Budesonide Respules 0.5 MG/2 ML AMPUL.NEB. 0.25 MG INHALATION ×2 (07:05→19:57)
[2021-10-26 07:20] LABS: Bedside Glucose 120 mg/dL (74-106)
[2021-10-26 07:30] LABS: Anion Gap 8 (5-15); BUN 46 mg/dL (7-18); BUN/Creat Ratio 17.1 RATIO (10-20); Calcium,Total 8.1 mg/dL (8.5-10.1); Chloride 99 mmol/L (98-107); Creatinine, Serum 2.69 mg/dL (0.70-1.30); EST Glomerular Filtration Rate 25 mL/min (>60); Est Glom Filt Rate - Afr Amer 31 mL/min (>60); Estimated Creatinine Clearance 28.77 ml/min; Glucose 109 mg/dL (74-106); Potassium 4.6 mmol/L (3.5-5.1); Sodium Level 137 mmol/L (136-145)
[2021-10-26] MEDS: Metolazone 2.5 MG Tablet PO (10:22)
[2021-10-26] MEDS: Aspirin E.C. 325 MG Tablet PO (10:22)
[2021-10-26 12:15] LABS: Bedside Glucose 115 mg/dL (74-106)
--- NOTE | 2021-10-26 12:17 | PCM.PN.REN ---
Subjective Subjective still with edema, breathing better Objective Data Objective Data Vital Signs: Vital Signs Temp Pulse Resp BP Pulse Ox O2 Del Method O2 Flow Rate 98.2 F 87 18 96/63 97 Trach Collar 8 10/26/21 10:10 10/26/21 10:10 10/26/21 10:10 10/26/21 10:10 10/26/21 10:10 10/26/21 10:10 10/26/21 10:10 FiO2 30 10/26/21 07:05 Oxygen Flow Rate (L/min) [6] 2 Oxygen Flow Rate (L/min) [5] 7 Oxygen Flow Rate (L/min) [4] 7 Oxygen Flow Rate (L/min) [3] 7 Oxygen Flow Rate (L/min) [2] 7 Oxygen Flow Rate (L/min) [1 ( 8 Initial Baseline)] Oxygen Flow Rate (L/min) 8 Oxygen Delivery Method [7] Trach Collar Oxygen Delivery Method [6] Trach Collar Oxygen Delivery Method [5] Trach Collar Oxygen Delivery Method [4] Trach Collar Oxygen Delivery Method [3] Trach Collar Oxygen Delivery Method [2] Trach Collar Oxygen Delivery Method [1 ( Trach Collar Initial Baseline)] Oxygen Delivery Method Trach Collar Weight: 137.4 kg Body Mass Index (BMI) 42.6 Intake & Output: Intake and Output for Last 24 Hours 10/24/21 10/25/21 10/26/21 23:59 23:59 23:59 Intake Total 524 / 524 540 / 660 590 / 590 Output Total 2200 / 2200 150 / 150 Balance -1676 / -1676 540 / 610 440 / 440 Lab / Micro Data Result Diagrams: 10/24/21 05:39 10/26/21 05:45 Labs: Laboratory Results - last 24 hr 10/24/21 14:40: Fl Pathologist Comment Reviewed 10/25/21 14:30: Potassium 4.6 10/25/21 16:05: POC Glucose 147 H 10/25/21 22:06: POC Glucose 152 H 10/26/21 05:45: Sodium 137, Potassium 4.6, Chloride 99, Carbon Dioxide 30.0, Anion Gap 8, BUN 46 H, Creatinine 2.69 H, Estim Creat Clear Calc 28.77, Est GFR (MDRD) Af Amer 31 L, Est GFR (MDRD) Non-Af 25 L, BUN/Creatinine Ratio 17.1, Glucose 109 H, Calcium 8.1 L 10/26/21 06:59: POC Glucose 120 H 10/26/21 11:54: POC Glucose 115 H Rhythm Strip Rhythm Strip: A-fib Physical Exam Const alert and oriented x3 Resp Resp Narrative: trach Auscultation: diminished lung sounds Cardio Cardio Narrative: afib GI non-tender and non-distended GI Narrative: obese Auscultation: normoactive bowel sounds Palpation: soft Extremity General Extremity: edema bilateral lower extremity Skin Skin Narrative: ecchymosis Psych cooperative Assessment & Plan Assessment/Plan (1) Acute worsening of stage 3 chronic kidney disease: PLAN: baseline creatinine 1.4 increased to 2.69 continue to hold lisinopril (2) Chronic renal failure, stage 3 (moderate): PLAN: baseline creatinine 1.4 (3) Paroxysmal atrial fibrillation with RVR: PLAN: rate controlled (4) Acute on chronic heart failure with preserved ejection fraction: PLAN: continue diuretics s/p left pleural effusion thoracentesis (5) Laryngeal cancer: PLAN: s/p trach (6) Pleural effusion, left: PLAN: s/p thoracentesis (7) Edema: PLAN: continue diuretics (8) Essential hypertension: (9) Type 2 diabetes with stage 3 chronic kidney disease GFR 30-59: QUALIFIERS: Diabetes mellitus terminal manager insulin use: with residential use Chronic kidney disease stage 3 subtype: stage 3a (GFR 45-59) Qualified Code(s): E11.22 - Type 2 diabetes mellitus with diabetic chronic kidney disease; N18.31 - Chronic kidney disease, stage 3a; Z79.4 - group home (current) use of insulin (10) COPD (chronic obstructive pulmonary disease): (11) Malignant neoplasm of head, neck and face: (12) Atherosclerosis of coronary artery of [place] heart without angina pectoris: QUALIFIERS: Coronary Disease-Associated Artery/Lesion type: [place] artery Qualified Code(s): I25.10 - Atherosclerotic heart disease of [place] coronary artery without angina pectoris (13) Hyperkalemia: PLAN: resolved (14) Morbid obesity:
--- NOTE | 2021-10-26 15:38 | PCM.PN.HOSP ---
Subjective Subjective Follow-up for heart failure exacerbation, ALEJANDRA on CKD and multiple issues. Patient shortness of breath is better but kidney function worsened. He also noticed decreased urine output last 24 hours but dose of diuretic was decreased. Objective Data Objective Data Vital Signs: Vital Signs Temp Pulse Resp BP Pulse Ox O2 Del Method O2 Flow Rate 98.2 F 87 18 96/63 97 Trach Collar 8 10/26/21 10:10 10/26/21 10:10 10/26/21 10:10 10/26/21 10:10 10/26/21 10:10 10/26/21 10:10 10/26/21 10:10 FiO2 30 10/26/21 10:00 Oxygen Flow Rate (L/min) [6] 2 Oxygen Flow Rate (L/min) [5] 7 Oxygen Flow Rate (L/min) [4] 7 Oxygen Flow Rate (L/min) [3] 7 Oxygen Flow Rate (L/min) [2] 7 Oxygen Flow Rate (L/min) [1 ( 8 Initial Baseline)] Oxygen Flow Rate (L/min) 8 Oxygen Delivery Method [7] Trach Collar Oxygen Delivery Method [6] Trach Collar Oxygen Delivery Method [5] Trach Collar Oxygen Delivery Method [4] Trach Collar Oxygen Delivery Method [3] Trach Collar Oxygen Delivery Method [2] Trach Collar Oxygen Delivery Method [1 ( Trach Collar Initial Baseline)] Oxygen Delivery Method Trach Collar Weight: 302 lb 14.642 oz Body Mass Index (BMI) 42.6 Intake & Output: Intake and Output for Last 24 Hours 10/24/21 10/25/21 10/26/21 23:59 23:59 23:59 Intake Total 524 / 524 540 / 660 590 / 590 Output Total 2200 / 2200 150 / 150 Balance -1676 / -1676 540 / 610 440 / 440 Lab / Micro Data Result Diagrams: 10/24/21 05:39 10/26/21 05:45 Labs: Laboratory Results - last 24 hr 10/25/21 16:05: POC Glucose 147 H 10/25/21 22:06: POC Glucose 152 H 10/26/21 05:45: Sodium 137, Potassium 4.6, Chloride 99, Carbon Dioxide 30.0, Anion Gap 8, BUN 46 H, Creatinine 2.69 H, Estim Creat Clear Calc 28.77, Est GFR (MDRD) Af Amer 31 L, Est GFR (MDRD) Non-Af 25 L, BUN/Creatinine Ratio 17.1, Glucose 109 H, Calcium 8.1 L 10/26/21 06:59: POC Glucose 120 H 10/26/21 11:54: POC Glucose 115 H Rhythm Strip Rhythm Strip: A-fib Physical Exam Narrative Seen and examined. Patient shortness of breath is better. Leg swelling mildly improved but he still has significant edema. Patient creatinine went up. Physical exam General: Alert, Oriented x3, Cooperative, morbid obesity BMI 42.6 kg/m? HEENT: Atraumatic, PERRLA, EOMI, Normocephalic Oral: No Gingival or Mucosal Lesions/ Ulcerations Neck: Tracheostomy, on trach collar. Supple, No JVD, Negative Carotid Bruits Lungs: Air entry diminished in bilateral lung bases. Status post left thoracocentesis. No crepitation/rhonchi. Cardiovascular: A. fib rhythm, Normal S1, Normal S2, No murmurs Abdomen: Bowel Sounds Present, Soft, Non Tender, Non-Distended : Urine output 150 mL after midnight. Oliguria. No renal angle tenderness. No suprapubic tenderness. Extremities: Bilateral pitting edema below knee edema, Capillary Refill Less than 3 Seconds Skin: No rashes, No breakdown Musculoskeletal: ROM restricted. Bilateral knee arthritis. No Tenderness to Palpation of Joints or Extremities Neurological: Cranial nerves II-XII grossly intact, DTR 2+/4 Psych/Mental Status: Flat affect. Assessment & Plan Assessment/Plan (1) Pleural effusion, left: (2) Acute on chronic heart failure with preserved ejection fraction: (3) Diabetes: QUALIFIERS: Diabetes mellitus type: type 2 Diabetes mellitus termite exterminator helper insulin use: with termite exterminator helper use Diabetes mellitus complication status: with hyperglycemia Qualified Code(s): E11.65 - Type 2 diabetes mellitus with hyperglycemia; Z79.4 - residential (current) use of insulin (4) Paroxysmal atrial fibrillation with RVR: PLAN: Plan This is 66-year-old gentleman admitted with progressive worsening of shortness of breath, weight gain, bilateral lower extremity edema, large pleural effusion consistent with acute on chronic HFpEF. 1. Acute Exacerbation of heart failure with preserved EF: Patient is being admitted in PCU. Heart failure core measures including intake and output, fluid restriction less than 1500 mL, daily weight monitoring, kidney and electrolytes monitoring. Chest x-ray individually reviewed shows moderate to large left pleural effusion. BNP elevated. On diuretic Lasix, metolazone and Aldactone. Repeat echo ordered yesterday pending. 10/25: Patient blood pressure was low in the morning. BP 102/76 Lasix dose decreased to 20 mg IV twice daily. 10/25 acute kidney injury on CKD stage IIIa: Patient baseline creatinine 1.43 with estimated creatinine clearance 54 mL/min. Patient creatinine jumped up to 1.78 with hyperkalemia K5.8. Lisinopril, spironolactone and potassium supplement discontinued. Kayexalate given. Repeat potassium 4.6. Serum magnesium and phosphorus level normal. 2D echo EF 55%, study technically limited. 10/26: Oliguria. BUN/creatinine 46/2.69. Choral Teacher note reviewed. Advised to continue diuretic. Urine output measurement is not accurate. 2. Left pleural effusion Chest x-ray with moderate to large left pleural effusion as above. Therapeutic and diagnostic thoracentesis ordered with fluid studies. Total serum protein on presentation 7.5. 10/25: Patient has improvement in shortness of breath. Repeat chest x-ray no pneumothorax. Had thoracocentesis of 1800 mL transitive fluid. As per lights criteria, it shows exudate but patient had diuretic since bleeding therefore serum fluid and LDH ordered. Cytology pending. 10/26: Cytology negative for malignant cells. 3. A. fib with RVR Twelve-lead EKG showed A. fib with RVR with ventricular rate of 101. library monitor shows A. fib with heart rate 110s to 120s. Magnesium 1.7. [id number] score 4. Patient not on anticoagulation at home without aspirin 325 mg daily. Anticoagulation not initiated as patient is pending thoracocentesis. Started on Cardizem CD 120 mg daily. Not a good candidate for beta-north as patient has COPD with heart failure exacerbation Magnesium level 1.7, replaced. TSH normal. 10/26: Heart rate is controlled. 3. Diabetes mellitus type II Patient with mild hyperglycemia on presentation. De-escalate home basal insulin. Hold home prandial insulin. Accu-Chek with correction scale insulin ordered. Metformin held. 10/26 glucose between 110s to 150s. Monitor Accu-Cheks. 4. Hypertension: Blood pressure was elevated during admission. Currently in normal range. 5. DVT prophylaxis Subcutaneous Lovenox ordered. Total time of the visit including total time spent in counseling or coordination of care, (more than 50% of the total time, spent in obtaining medical information from nurses and other ancillary care providers,explaining to the patient about labs, imaging, diagnosis and management of active complex medical conditions), discussion with market analyst, review of labs and imaging is 40 minutes. Charges/Coding Visit Charges Inpatient E&M: 00856 Subs Hosp L3
[2021-10-26] MEDS: Ipratropium/Albuterol Sulfate 3 ML AMPUL.NEB INHALATION (17:05)
[2021-10-26] MEDS: Furosemide 20 MG/2 ML VIAL IV (17:24)
[2021-10-26 17:30] LABS: Bedside Glucose 113 mg/dL (74-106)
--- NOTE | 2021-10-26 18:27 | NURSING ---
Reviewed charting with Katelin Christy RN.
[2021-10-26] MEDS: Atorvastatin Calcium 40 MG Tablet PO (20:55)
[2021-10-26] MEDS: Insulin Glargine-YFGN 100 UNIT/ML Pen 15 UNIT SC (20:55)
[2021-10-26] MEDS: Insulin Lispro 100 UNIT/ML INSULN.PEN SC (20:56)
--- NOTE | 2021-10-26 20:57 | NURSING ---
pt requesting medications early to rest.
[2021-10-26 21:21] LABS: Bedside Glucose 232 mg/dL (74-106)
[2021-10-27] VITALS (14 sets, daily range): BP systolic 110–116; BP diastolic 64–77; PULSE 71–130; RESP 16–20; TEMP 36.2–37.2; O2SAT 94–99
[2021-10-27 05:33] LABS: Albumin, Serum 2.9 g/dL (3.2-5.0); BUN 52 mg/dL (7-18); BUN/Creat Ratio 21.9 RATIO (10-20); Calcium,Total 8.1 mg/dL (8.5-10.1); Chloride 100 mmol/L (98-107); Creatinine, Serum 2.37 mg/dL (0.70-1.30); EST Glomerular Filtration Rate 29 mL/min (>60); Est Glom Filt Rate - Afr Amer 35 mL/min (>60); Estimated Creatinine Clearance 32.65 ml/min; Glucose 108 mg/dL (74-106); Phosphorus 4.4 mg/dL (2.5-4.9); Potassium 4.2 mmol/L (3.5-5.1); Sodium Level 136 mmol/L (136-145)
[2021-10-27] MEDS: Budesonide Respules 0.5 MG/2 ML AMPUL.NEB. 0.25 MG INHALATION ×2 (06:44→20:26)
[2021-10-27] MEDS: Levothyroxine 150 MCG Tablet PO (06:54)
[2021-10-27 07:16] LABS: Bedside Glucose 110 mg/dL (74-106)
--- NOTE | 2021-10-27 08:50 | PN.RENAL_ITS ---
Subjective Subjective stable oxygenation, edema improving. SOB improved Objective Data Objective Data Vital Signs: Vital Signs Temp Pulse Resp BP Pulse Ox O2 Del Method O2 Flow Rate 97.8 F 106 H 18 110/70 98 Trach Collar 8 10/27/21 04:00 10/27/21 07:00 10/27/21 07:04 10/27/21 04:00 10/27/21 04:00 10/27/21 07:04 10/27/21 07:04 FiO2 30 10/27/21 07:04 Oxygen Flow Rate (L/min) [6] 2 Oxygen Flow Rate (L/min) [5] 7 Oxygen Flow Rate (L/min) [4] 7 Oxygen Flow Rate (L/min) [3] 7 Oxygen Flow Rate (L/min) [2] 7 Oxygen Flow Rate (L/min) [1 ( 8 Initial Baseline)] Oxygen Flow Rate (L/min) 8 Oxygen Delivery Method [7] Trach Collar Oxygen Delivery Method [6] Trach Collar Oxygen Delivery Method [5] Trach Collar Oxygen Delivery Method [4] Trach Collar Oxygen Delivery Method [3] Trach Collar Oxygen Delivery Method [2] Trach Collar Oxygen Delivery Method [1 ( Trach Collar Initial Baseline)] Oxygen Delivery Method Trach Collar Weight: 137.8 kg Body Mass Index (BMI) 42.6 Intake & Output: Intake and Output for Last 24 Hours 10/25/21 10/26/21 10/27/21 23:59 23:59 23:59 Intake Total 540 / 660 950 / 950 Output Total 150 / 150 Balance 540 / 610 800 / 800 Lab / Micro Data Result Diagrams: 10/24/21 05:39 10/27/21 04:30 Labs: Laboratory Results - last 24 hr 10/24/21 14:40: Miscellaneous Cytology SEE PATHOLOGY REPORT 10/26/21 11:54: POC Glucose 115 H 10/26/21 16:30: POC Glucose 113 H 10/26/21 20:51: POC Glucose 232 H 10/27/21 04:30: Sodium 136, Potassium 4.2, Chloride 100, Carbon Dioxide 30.0, BUN 52 H, Creatinine 2.37 H, Estim Creat Clear Calc 32.65, Est GFR (MDRD) Af Amer 35 L, Est GFR (MDRD) Non-Af 29 L, BUN/Creatinine Ratio 21.9 H, Glucose 108 H, Calcium 8.1 L, Phosphorus 4.4, Albumin 2.9 L 10/27/21 06:53: POC Glucose 110 H Rhythm Strip Rhythm Strip: A-fib Physical Exam Const alert, oriented x3 and no apparent distress Constitutional Narrative: s/p trach Nutritional Appearance: obese morbidly obese Resp Resp Narrative: trach Auscultation: diminished lung sounds Cardio Cardio Narrative: afib Rhythm: abnormal rhythm GI non-tender and non-distended GI Narrative: obese Auscultation: normoactive bowel sounds Palpation: soft Narrative: urine output not measured Extremity General Extremity: edema bilateral lower extremity Skin Skin Narrative: ecchymosis General Skin Exam: ecchymosis Neuro CN's II-XII intact bilaterally and no focal motor deficits Sensorium / Orientation: awake and alert Psych cooperative Assessment & Plan Assessment/Plan (1) Acute worsening of stage 3 chronic kidney disease: PLAN: improved today. Continue to hold lisinopril until renal fxn back to baseline 1.4. Follow up in office with me in 2 wks (2) Chronic renal failure, stage 3 (moderate): PLAN: baseline creatinine 1.4 due to diabetes, hypertension (3) Paroxysmal atrial fibrillation with RVR: PLAN: rate controlled (4) Acute on chronic heart failure with preserved ejection fraction: PLAN: continue diuretics s/p left pleural effusion thoracentesis (5) Laryngeal cancer: PLAN: s/p trach (6) Pleural effusion, left: PLAN: s/p thoracentesis (7) Edema: PLAN: continue diuretics as ordered (8) Essential hypertension: PLAN: BP stable. (9) Type 2 diabetes with stage 3 chronic kidney disease GFR 30-59: QUALIFIERS: Diabetes mellitus detention insulin use: with buttermaker helper use Chronic kidney disease stage 3 subtype: stage 3a (GFR 45-59) Qual ified Code(s): E11.22 - Type 2 diabetes mellitus with diabetic chronic kidney disease; N18.31 - Chronic kidney disease, stage 3a; Z79.4 - half-way (current) use of insulin (10) COPD (chronic obstructive pulmonary disease): (11) Malignant neoplasm of head, neck and face: (12) Atherosclerosis of coronary artery of [place] heart without angina pectoris: QUALIFIERS: Coronary Disease-Associated Artery/Lesion type: [place] artery Qualified Code(s): I25.10 - Atherosclerotic heart disease of [place] c oronary artery without angina pectoris (13) Hyperkalemia: PLAN: resolved (14) Morbid obesity:
[2021-10-27] MEDS: dilTIAZem CD 120 MG Capsule PO (09:27)
[2021-10-27] MEDS: Aspirin E.C. 325 MG Tablet PO (09:27)
[2021-10-27] MEDS: Furosemide 20 MG/2 ML VIAL IV ×2 (09:28→17:11)
[2021-10-27] MEDS: 0.9% Saline Lock 10 ML Syringe IV ×2 (09:28→17:10)
[2021-10-27 12:40] LABS: Bedside Glucose 138 mg/dL (74-106)
--- NOTE | 2021-10-27 13:07 | CASEMGMT ---
Patient does not have a Healthcare Power of Smoking Pipe Driller And Threader or Healthcare Living Will on file. However, per the admission assessment patient would like more information on advance directives. SW met with patient. Introduced self and role at [facility]. SW asked patient about documents and he said his was wanting information. SW provided patient with a copy of each as well as a Social Work rac card. SW told patient if he would like to complete them while in the hospital he can ask for Social Work. Alessandra FLYNN
--- NOTE | 2021-10-27 15:30 | NURSING ---
Charting by Katelin Christy RN reviewed.
--- NOTE | 2021-10-27 17:02 | PN.HOSP_ITS ---
Subjective Subjective Follow-up for dyspnea and heart failure exacerbation Objective Data Objective Data Vital Signs: Vital Signs Temp Pulse Resp BP Pulse Ox O2 Del Method O2 Flow Rate 97.8 F 88 16 111/77 98 Trach Collar 6 10/27/21 15:20 10/27/21 15:20 10/27/21 15:20 10/27/21 15:20 10/27/21 15:20 10/27/21 15:30 10/27/21 15:30 FiO2 30 10/27/21 15:30 Oxygen Flow Rate (L/min) [6] 2 Oxygen Flow Rate (L/min) [5] 7 Oxygen Flow Rate (L/min) [4] 7 Oxygen Flow Rate (L/min) [3] 7 Oxygen Flow Rate (L/min) [2] 7 Oxygen Flow Rate (L/min) [1 ( 8 Initial Baseline)] Oxygen Flow Rate (L/min) 6 Oxygen Delivery Method [7] Trach Collar Oxygen Delivery Method [6] Trach Collar Oxygen Delivery Method [5] Trach Collar Oxygen Delivery Method [4] Trach Collar Oxygen Delivery Method [3] Trach Collar Oxygen Delivery Method [2] Trach Collar Oxygen Delivery Method [1 ( Trach Collar Initial Baseline)] Oxygen Delivery Method Trach Collar Weight: 303 lb 12.752 oz Body Mass Index (BMI) 42.6 Intake & Output: Intake and Output for Last 24 Hours 10/25/21 10/26/21 10/27/21 23:59 23:59 23:59 Intake Total 540 / 660 950 / 950 360 / 360 Output Total 150 / 150 550 / 550 Balance 540 / 610 800 / 800 -190 / -190 Lab / Micro Data Result Diagrams: 10/24/21 05:39 10/27/21 04:30 Labs: Laboratory Results - last 24 hr 10/26/21 16:30: POC Glucose 113 H 10/26/21 20:51: POC Glucose 232 H 10/27/21 04:30: Sodium 136, Potassium 4.2, Chloride 100, Carbon Dioxide 30.0, BUN 52 H, Creatinine 2.37 H, Estim Creat Clear Calc 32.65, Est GFR (MDRD) Af Amer 35 L, Est GFR (MDRD) Non-Af 29 L, BUN/Creatinine Ratio 21.9 H, Glucose 108 H, Calcium 8.1 L, Phosphorus 4.4, Albumin 2.9 L 10/27/21 06:53: POC Glucose 110 H 10/27/21 12:13: POC Glucose 138 H Rhythm Strip Rhythm Strip: A-fib Physical Exam Narrative Seen and examined. Patient shortness of breath is better. Aldo wrap bandage ordered. Physical exam General: Alert, Oriented x3, Cooperative, morbid obesity BMI 42.6 kg/m? HEENT: Atraumatic, PERRLA, EOMI, Normocephalic Oral: No Gingival or Mucosal Lesions/ Ulcerations Neck: Tracheostomy, on trach collar. Supple, No JVD, Negative Carotid Bruits Lungs: Air entry diminished in bilateral lung bases. Status post left thoraco centesis. No crepitation/rhonchi. Cardiovascular: A. fib rhythm, Normal S1, Normal S2, No murmurs Abdomen: Bowel Sounds Present, Soft, Non Tender, Non-Distended : Urine output 275 probably not well measured/charted. No renal angle tenderness. No suprapubic tenderness. Extremities: Bilateral pitting edema below knee edema, Capillary Refill Less than 3 Seconds Skin: No rashes, No breakdown Musculoskeletal: ROM restricted. Bilateral knee arthritis. No Tenderness to Palpation of Joints or Extremities Neurological: Cranial nerves II-XII grossly intact, DTR 2+/4 Psych/Mental Status: Flat affect. Assessment & Plan Assessment/Plan (1) Pleural effusion, left: (2) Acute on chronic heart failure with preserved ejection fraction: (3) Diabetes: QUALIFIERS: Diabetes mellitus type: type 2 Diabetes mellitus ferry terminal agent insulin use: with ferry terminal agent use Diabetes mellitus complication status: with hyperglycemia Qualified Code(s): E11.65 - Type 2 diabetes mellitus with hyperglycemia; Z79.4 - skilled nursing (current) use of insulin (4) Paroxysmal atrial fibrillation with RVR: PLAN: Plan This is 66-year-old gentleman admitted with progressive worsening of shortness of breath, weight gain, bilateral lower extremity edema, large pleural effusion consistent with acute on chronic HFpEF. 1. Acute Exacerbation of heart failure with preserved EF: Patient is being admitted in PCU. Heart failure core measures including intake and output, fluid restriction less than 1500 mL, daily weight monitoring, kidney and electrolytes monitoring. Chest x-ray individually reviewed shows moderate to large left pleural effusion. BNP elevated. On diuretic Lasix, metolazone and Aldactone. Repeat echo ordered yesterday pending. 10/25: Patient blood pressure was low in the morning. BP 102/76 Lasix dose decreased to 20 mg IV twice daily. 10/27: Patient is on 4 L of oxygen at home. Here, he is 7-8 L of oxygen trying to wean off. Acute on chronic hypoxic respiratory failure. Possible discharge tomorrow. 10/25 acute kidney injury on CKD stage IIIa: Patient baseline creatinine 1.43 with estimated creatinine clearance 54 mL/min. Patient creatinine jumped up to 1.78 with hyperkalemia K5.8. Lisinopril, spironolactone and potassium supplement discontinued. Kayexalate given. Repeat potassium 4.6. Serum magnesium and phosphorus level normal. 2D echo EF 55%, study technically limited. 10/26: Oliguria. BUN/creatinine 46/2.69. Family Service Aide note reviewed. Advised to continue diuretic. Urine output measurement is not accurate. 10/27: Discussed with the clinical research coordinator. We will discharge on Lasix 20 mg p.o. twice daily with follow-up in the next few weeks. 2. Left pleural effusion Chest x-ray with moderate to large left pleural effusion as above. Therapeutic and diagnostic thoracentesis ordered with fluid studies. Total serum protein on presentation 7.5. 10/25: Patient has improvement in shortness of breath. Repeat chest x-ray no pneumothorax. Had thoracocentesis of 1800 mL transitive fluid. As per lights criteria, it shows exudate but patient had diuretic since bleeding therefore serum fluid and LDH ordered. Cytology pending. 10/26: Cytology negative for malignant cells. 3. A. fib with RVR Twelve-lead EKG showed A. fib with RVR with ventricular rate of 101. security monitor shows A. fib with heart rate 110s to 120s. Magnesium 1.7. [id number] score 4. Patient not on anticoagulation at home without aspirin 325 mg daily. Anticoagulation not initiated as patient is pending thoracocentesis. Started on Cardizem CD 120 mg daily. Not a good candidate for beta-north as patient has COPD with heart failure exacerbation Magnesium level 1.7, replaced. TSH normal. 10/26: Heart rate is controlled. 3. Diabetes mellitus type II Patient with mild hyperglycemia on presentation. De-escalate home basal insulin. Hold home prandial insulin. Accu-Chek with correction scale insulin ordered. Metformin held. 10/26 glucose between 110s to 150s. Monitor Accu-Cheks. 4. Hypertension: Blood pressure was elevated during admission. Currently in normal range. 5. DVT prophylaxis Subcutaneous Lovenox ordered. Total time of the visit including total time spent in counseling or coordination of care, (more than 50% of the total time, spent in obtaining medical information from nurses and other ancillary care providers,explaining to the patient about labs, imaging, diagnosis and management of active complex medical conditions), discussion with clinical research coordinator, review of labs and imaging is 40 minutes. Charges/Coding Visit Charges Inpatient E&M: 28020 Subs Hosp L2
[2021-10-27] MEDS: Insulin Lispro 100 UNIT/ML INSULN.PEN SC ×2 (17:10→21:43)
[2021-10-27 17:35] LABS: Bedside Glucose 170 mg/dL (74-106)
[2021-10-27] MEDS: Atorvastatin Calcium 40 MG Tablet PO (21:33)
[2021-10-27] MEDS: Insulin Glargine-YFGN 100 UNIT/ML Pen 15 UNIT SC (21:43)
[2021-10-27 22:05] LABS: Bedside Glucose 211 mg/dL (74-106)
[2021-10-28] VITALS (9 sets, daily range): BP systolic 102–111; BP diastolic 51–76; PULSE 80–94; RESP 16–18; TEMP 36.8–37.1; O2SAT 88–98
[2021-10-28] MEDS: Levothyroxine 150 MCG Tablet PO (06:31)
[2021-10-28] MEDS: Budesonide Respules 0.5 MG/2 ML AMPUL.NEB. 0.25 MG INHALATION (07:32)
[2021-10-28] MEDS: Ipratropium/Albuterol Sulfate 3 ML AMPUL.NEB INHALATION ×2 (07:32→16:32)
[2021-10-28 07:36] LABS: Bedside Glucose 110 mg/dL (74-106)
--- NOTE | 2021-10-28 08:03 | DCINST_ITS ---
Discharge Instructions Diet Discharge Diet: Low fat / Low cholesterol, 6 Cup Fluid Restriction and 2000 mg Sodium Diet Activity Discharge Activity: Return to Normal Activity and May Not Drive Weight Bearing Status: Weight bearing as tolerated Dressing / Incision Call your doctor if you observe: Fever of 101 or Higher, Coldness, Increased Pain, Numbness or Tingling, Change in Color, Inability to urinate, Inability to have a bowel movement, Shortness of breath, Dizziness, Fainting spells, Swelling in the ankles, Chest pain, Prolonged hiccupping, Increased palpitations (irregular heartbeat) and Calf discomfort Follow Up Care Test Results: Test results from this visit will be discussed in further detail at your follow- up appointment, if applicable. Discharge Plan Admission Admit Date/Time: 10/24/21 00:49 Primary Reason for Your Visit: Acute on chronic HFpEF, left large pleural effusion, ALEJANDRA ON CKD Attending Provider: Ashu Oliver Primary Care Provider: Chinmay Sin Consulting Providers: Gabriel Novak ; Gabrielle Ballard Instructions Patient Instructions: GLO RN Thoracentesis Dc Discharge Orders/Prescriptions Prescriptions: New diltiazem HCl 120 mg Capsule,Extended Release 24hr 120 mg PO BIDCM Qty: 60 0RF Rx Instructions: Hold for heart less than 60 or systolic blood pressure less than 100 mmHg. sennosides-docusate sodium [Stool Softener-Stimulant Laxat] 8.6-50 mg Tablet 2 tab PO BID PRN PRN (Reason: Constipation) Qty: 0 0RF Rx Instructions: [id number] Continued budesonide 0.25 mg/2 mL suspension for nebulization 2 ml INHALATION BID amlodipine 2.5 mg tablet 2.5 mg PO DAILY Qty: 90 3RF levothyroxine 150 MCG tablet 150 mcg PO DAILY Label Comments: thyroid atorvastatin 40 MG tablet 40 mg PO QHS ipratropium-albuterol 3 ML solution for nebulization 3 ml inhalation Q6H PRN (Reason: Sob &/Or Wheezing) Label Comments: breathing insulin aspart U-100 100 UNITS/ML insulin pen 10 units subcut BREAKFAST insulin aspart U-100 100 UNITS/ML insulin pen 10 unit subcut LUNCH insulin aspart U-100 100 UNITS/ML insulin pen 15 units subcut DINNER aspirin 81 mg tablet,delayed release (DR/EC) 325 mg PO DAILY@0800 furosemide 40 mg tablet 40 mg PO BID Qty: 60 2RF (DME) FreeStyle Zayra 2 Sensor Kit See Rx Instructions .ROUTE .MEDSUPPLY Qty: 2 6RF Rx Instructions: As directed Trulicity 4.5 mg/0.5 mL pen injector 4.5 mg subcut QWEEK Qty: 6 1RF Changed Levemir FlexTouch U-100 Insuln 100 unit/mL (3 mL) insulin pen 15 unit subcut QHS Qty: 39 2RF Held lisinopril 40 mg tablet 40 mg PO DAILY Hold Instructions: Hold lisinopril until creatinine back to baseline 1.4. Follow-up creatinine in [address] farmer [address]. Ballard in 2 weeks metformin 500 mg tablet extended release 24 hr 500 mg PO BID Qty: 180 1RF Hold Instructions: Hold for 7 days, resume when Cr Cl > 30 Ml/hr Discontinued prednisone 20 mg tablet 20 mg PO DAILY PRN (Reason: Shortness Of Breath) metolazone 2.5 mg tablet 2.5 mg PO .// Qty: 60 3RF spironolactone 25 mg tablet 25 mg PO DAILY Rx Instructions: Decreased by Dr. Ballard on 07/28/20 Referrals / Follow Up: Gabrielle Ballard DO [Med Staff - Consulting] - (appt on 11/08/21 at 10:30am) Chinmay Sin MD [Primary Care Provider] - Tyler Ruiz NP, PROGRAM TRAINER-C [Med Staff - Adv Practice Prof] - Within 1 Month (for heart failure) Disposition Disposition (needs filled in before D/C Order can be placed): Home, Self Care
--- NOTE | 2021-10-28 10:33 | DS.PCM_ITS ---
Providers Date of Admission: 10/24/21 Date of Discharge: 10/28/21 Primary Care Physician: Dr. Chinmay Sin MD Consultations 10/25/21 10:15 Consult: Nephrology Routine Consulting Provider: Gabrielle Ballard Reason for Consult: ALEJANDRA ON CKD G3b, hyperkalemia EMERGENT Consult: No MD Notified: Yes Date Notified: 10/25/21 Time Notified: 10:19 Method of Notification: Text Reason For Visit: ACUTE ON CHRONIC HEART FAILURE W PRESERVE EF Diagnosis Discharge Diagnosis (1) Pleural effusion, left: Status: Acute Code(s): J90 - Pleural effusion, not elsewhere classified (2) Acute on chronic heart failure with preserved ejection fraction: Status: Acute Code(s): I50.33 - Acute on chronic diastolic (congestive) heart failure (3) Diabetes: Status: Chronic Code(s): E11.9 - Type 2 diabetes mellitus without complications Qualifiers: Diabetes mellitus complication status: with hyperglycemia Diabetes mellitus exterminator helper insulin use: with exterminator helper use Diabetes mellitus type: type 2 Qualified Code(s): E11.65 - Type 2 diabetes mellitus with hyperglycemia; Z79.4 - exterminator (current) use of insulin (4) Paroxysmal atrial fibrillation with RVR: Status: Acute Code(s): I48.0 - Paroxysmal atrial fibrillation Medications at Discharge Home Medications levothyroxine 150 mcg tablet 150 mcg PO DAILY hypothyroidism 06/04/14 atorvastatin 40 mg tablet 40 mg PO QHS cholesterol 04/12/17 ipratropium 0.5 mg-albuterol 3 mg (2.5 mg base)/3 mL nebulization soln 3 ml inhalation Q6H PRN Sob &/Or Wheezing 04/12/17 budesonide 0.25 mg/2 mL suspension for nebulization 2 ml inhalation BID sob 07/18/18 insulin aspart U-100 100 unit/mL (3 mL) subcutaneous pen 10 unit subcut LUNCH diabetes 09/29/18 insulin aspart U-100 100 unit/mL (3 mL) subcutaneous pen 10 units subcut BREAKFAST diabetes 09/29/18 insulin aspart U-100 100 unit/mL (3 mL) subcutaneous pen 15 units subcut DINNER diabetes 09/29/18 amlodipine 2.5 mg tablet 2.5 mg PO DAILY #90 tabs 01/25/21 flash glucose sensor (FreeStyle Zayra 2 Sensor kit) #2 ea 05/17/21 lisinopril 40 mg tablet 40 mg PO DAILY BLOOD PRESSURE 06/06/21 aspirin 81 mg tablet,delayed release 325 mg PO DAILY@0800 heart health 08/25/21 Trulicity 4.5 mg/0.5 mL subcutaneous pen injector (dulaglutide) 4.5 mg (0.5 mL) subcut QWEEK #6 mL 10/05/21 metformin 500 mg tablet,extended release 24 hr 500 mg PO BID dm #180 tabs 10/19/21 Levemir FlexTouch U-100 Insuln 100 unit/mL (3 mL) subcutaneous pen (insulin detemir U-100) 15 unit (0.15 mL) subcut QHS #39 mL 10/28/21 diltiazem HCl 120 mg capsule,extended release 24 hr 120 mg PO BIDCM #60 caps 10/28/21 furosemide 40 mg tablet 40 mg PO BID diuretic/water pill #60 tabs 10/28/21 sennosides 8.6 mg-docusate sodium 50 mg tablet (Stool Softener-Stimulant Laxative) 2 tab PO BID PRN PRN Constipation #0 tabs 10/28/21 Hospital Course Summary of Care Provided Hospital Course: This is 66-year-old gentleman admitted with progressive worsening of shortness of breath, weight gain, bilateral lower extremity edema, large pleural effusion consistent with acute on chronic HFpEF. 1. Acute Exacerbation of heart failure with preserved EF: Patient is being admitted in PCU. Heart failure core measures including intake and output, fluid restriction less than 1500 mL, daily weight monitoring, kidney and electrolytes monitoring. Chest x-ray individually reviewed shows moderate to large left pleural effusion. BNP elevated. On diuretic Lasix, metolazone and Aldactone. Repeat echo ordered yesterday pending. 10/25: Patient blood pressure was low in the morning. BP 102/76 Lasix dose decreased to 20 mg IV twice daily. 10/27: Patient is on 4 L of oxygen at home. Here, he is 7-8 L of oxygen trying to wean off. Acute on chronic hypoxic respiratory failure. 10/28: Patient oxygen, decreased to 2 L, pulse ox 98%. Patient is discharged home on Lasix 40 mg p.o. twice daily. 10/25 acute kidney injury on CKD stage IIIa: Patient baseline creatinine 1.43 with estimated creatinine clearance 54 mL/min. Patient creatinine jumped up to 1.78 with hyperkalemia K5.8. Lisinopril, spironolactone and potassium supplement discontinued. Kayexalate given. Repeat potassium 4.6. Serum magnesium and phosphorus level normal. 2D echo EF 55%, study technically limited. 10/26: Oliguria. BUN/creatinine 46/2.69. Network Account Manager note reviewed. Advised to continue diuretic. Urine output measurement is not accurate. 10/27: Discussed with the demolition crane operator. 10/28: Follow with demolition crane operator on November 08, 2021 2. Left pleural effusion Chest x-ray with moderate to large left pleural effusion as above. Therapeutic and diagnostic thoracentesis ordered with fluid studies. Total serum protein on presentation 7.5. 10/25: Patient has improvement in shortness of breath. Repeat chest x-ray no pneumothorax. Had thoracocentesis of 1800 mL transitive fluid. As per lights criteria, it shows exudate but patient had diuretic since bleeding therefore serum fluid and LDH ordered. Cytology pending. 10/26: Cytology negative for malignant cells. 3. A. fib with RVR Twelve-lead EKG showed A. fib with RVR with ventricular rate of 101. radiation monitor shows A. fib with heart rate 110s to 120s. Magnesium 1.7. [id number] score 4. Patient not on anticoagulation at home without aspirin 325 mg daily. Anticoagulation not initiated as patient is pending thoracocentesis. Started on Cardizem CD 120 mg daily. Not a good candidate for beta-north as patient has COPD with heart failure exacerbation Magnesium level 1.7, replaced. TSH normal. 10/26: Heart rate is controlled. 3. Diabetes mellitus type II Patient with mild hyperglycemia on presentation. De-escalate home basal ins ulin. Hold home prandial insulin. Accu-Chek with correction scale insulin ordered. Metformin held. 10/26 glucose between 110s to 150s. Monitor Accu-Cheks. 10/28: Glucose reasonably well controlled. Resume metformin if creatinine clearance more than 30 mill per minute 4. Hypertension: Blood pressure was elevated during admission. Currently in normal range. Patient has laryngeal cancer status postlaminectomy. He cleans up his tracheostomy. 5. DVT prophylaxis Subcutaneous Lovenox ordered. Discharge medication reconciliation done. Discharge follow-up instructions completed. Discharge process discussed with the patient and all questions were answered to patient's satisfaction. Total time spent, exact 35 minutes on discharge meds reconciliation, examination, coordination of care with nurses and ancillary staff, review of imaging and blood test and discussion with the patient on follow-up instructions. Physical Exam Narrative Seen and examined. Patient shortness of breath is better. Aldo wrap bandage ordered. Physical exam General: Alert, Oriented x3, Cooperative, morbid obesity BMI 42.6 kg/m? HEENT: Atraumatic, PERRLA, EOMI, Normocephalic Oral: No Gingival or Mucosal Lesions/ Ulcerations Neck: Tracheostomy, on trach collar. Supple, No JVD, Negative Carotid Bruits Lungs: Air entry diminished in bilateral lung bases. Status post left thoracocentesis. No crepitation/rhonchi. Cardiovascular: A. fib rhythm, Normal S1, Normal S2, No murmurs Abdomen: Bowel Sounds Present, Soft, Non Tender, Non-Distended : Urine output 275 probably not well measured/charted. No renal angle tenderness. No suprapubic tenderness. Extremities: Bilateral pitting edema below knee edema, Capillary Refill Less than 3 Seconds Skin: No rashes, No breakdown Musculoskeletal: ROM restricted. Bilateral knee arthritis. No Tenderness to Palpation of Joints or Extremities Neurological: Cranial nerves II-XII grossly intact, DTR 2+/4 Psych/Mental Status: Flat affect. Weight / BMI Weight Weight: 303 lb 12.752 oz Body Mass Index (BMI) 42.6 ABG / Lab / Microbiology Data Result Diagrams: 10/24/21 05:39 10/27/21 04:30 Laboratory: Laboratory Results - last 24 hr 10/27/21 12:13: POC Glucose 138 H 10/27/21 17:07: POC Glucose 170 H 10/27/21 21:41: POC Glucose 211 H 10/28/21 07:12: POC Glucose 110 H D/C Instructions Discharge Diet: Low fat / Low cholesterol, 6 Cup Fluid Restriction and 2000 mg Sodium Diet Weight Bearing Status: Weight bearing as tolerated Call your doctor if you observe: Fever of 101 or Higher, Coldness, Increased Pain, Numbness or Tingling, Change in Color, Inability to urinate, Inability to have a bowel movement, Shortness of breath, Dizziness, Fainting spells, Swelling in the ankles, Chest pain, Prolonged hiccupping, Increased palpitations (irregular heartbeat) and Calf discomfort Meaningful Use Info Meaningful Use Diagnoses (Choose all that apply): CHF CHF ALDO/ARB ordered at discharge?: No Reason ALDO/ARB not ordered?: Worsening renal dysfunctn Documented LVEF (%): 55 Discharge Plan Admission Admit Date/Time: 10/24/21 00:49 Primary Reason for Your Visit: Acute on chronic HFpEF, left large pleural effusion, ALEJANDRA ON CKD Attending Provider: Ashu Oliver Primary Care Provider: Chinmay Sin Consulting Providers: Gabriel Novak ; Gabrielle Ballard Discharge Orders/Prescriptions Prescriptions: New diltiazem HCl 120 mg Capsule,Extended Release 24hr 120 mg PO BIDCM Qty: 60 0RF Rx Instructions: Hold for heart less than 60 or systolic blood pressure less than 100 mmHg. sennosides-docusate sodium [Stool Softener-Stimulant Laxat] 8.6-50 mg Tablet 2 tab PO BID PRN PRN (Reason: Constipation) Qty: 0 0RF Rx Instructions: [id number] Continued budesonide 0.25 mg/2 mL suspension for nebulization 2 ml INHALATION BID amlodipine 2.5 mg tablet 2.5 mg PO DAILY Qty: 90 3RF levothyroxine 150 MCG tablet 150 mcg PO DAILY Label Comments: thyroid atorvastatin 40 MG tablet 40 mg PO QHS ipratropium-albuterol 3 ML solution for nebulization 3 ml inhalation Q6H PRN (Reason: Sob &/Or Wheezing) Label Comments: breathing insulin aspart U-100 100 UNITS/ML insulin pen 10 units subcut BREAKFAST insulin aspart U-100 100 UNITS/ML insulin pen 10 unit subcut LUNCH insulin aspart U-100 100 UNITS/ML insulin pen 15 units subcut DINNER aspirin 81 mg tablet,delayed release (DR/EC) 325 mg PO DAILY@0800 furosemide 40 mg tablet 40 mg PO BID Qty: 60 2RF (DME) FreeStyle Zayra 2 Sensor Kit See Rx Instructions .ROUTE .MEDSUPPLY Qty: 2 6RF Rx Instructions: As directed Trulicity 4.5 mg/0.5 mL pen injector 4.5 mg subcut QWEEK Qty: 6 1RF Changed Levemir FlexTouch U-100 Insuln 100 unit/mL (3 mL) insulin pen 15 unit subcut QHS Qty: 39 2RF Held lisinopril 40 mg tablet 40 mg PO DAILY Hold Instructions: Hold lisinopril until creatinine back to baseline 1.4. Follow-up creatinine in 1 week and demolition crane operator Dr. Ballard in 2 weeks metformin 500 mg tablet extended release 24 hr 500 mg PO BID Qty: 180 1RF Hold Instructions: Hold for 7 days, resume when Cr Cl > 30 Ml/hr Discontinued prednisone 20 mg tablet 20 mg PO DAILY PRN (Reason: Shortness Of Breath) metolazone 2.5 mg tablet 2.5 mg PO .// Qty: 60 3RF spironolactone 25 mg tablet 25 mg PO DAILY Rx Instructions: Decreased by Dr. Ballard on 07/28/20 Referrals / Follow Up: Gabrielle Ballard DO [Med Staff - Consulting] - (appt on 11/08/21 at 10:30am) Chinmay Sin MD [Primary Care Provider] - 10/29/21 11:40 am Tyler Ruiz NP, HEADER SET UP OPERATOR-C [Med Staff - Adv Practice Prof] - 11/07/21 3:30 pm (for heart failure) Disposition Disposition (needs filled in before D/C Order can be placed): Home, Self Care Charges/Coding Visit Charges Inpatient E&M: 20669 Disch Hosp
[2021-10-28] MEDS: Aspirin E.C. 325 MG Tablet PO (10:48)
[2021-10-28] MEDS: Metolazone 2.5 MG Tablet PO (10:48)
[2021-10-28] MEDS: Furosemide 20 MG/2 ML VIAL IV (10:48)
[2021-10-28] MEDS: dilTIAZem CD 120 MG Capsule PO (10:48)
--- NOTE | 2021-10-28 11:54 | CASEMGMT ---
Addendum entered by Hanna Medina 10/28/21 16:00: Call to [facility] when faxed to notify of order and pt d/c, Tiereney aware pt will need a tank for discharge. D/C summary faxed. Juli TAVARES CM Original Note: Pt's home order is for 4L at bedtime thru [facility]. Per nursing, pt qualifies for 2L continuous via trach collar and new order faxed to [facility]. This ANUSHA EDGAR to room to discuss with pt, voices understanding. Pt does question [facility] at this time and advised pt that if he wants to switch companies then he will have to request a transfer to another company, voices understanding. Pt declines need for any HHC or further therapy at this time. Pt voices no further questions/concerns/needs. Juli TAVARES CM
[2021-10-28] MEDS: Insulin Lispro 100 UNIT/ML INSULN.PEN SC (12:07)
--- NOTE | 2021-10-28 13:54 | PHA.DC.MC ---
Pharmacy Service has performed discharge medication reconciliation and counseling for this patient. The patient was counseled on the following discharge medications and changes in medications for homegoing were reviewed. 1. CARDIZEM 2. SENNA-DOC The Reason for Use, instructions for use, and potential side effects were reviewed for all new medications. The patient's questions regarding all of their medications were answered. The patient was able to verbally demonstrate an understanding of their discharge medications. Home Medications levothyroxine 150 mcg tablet 150 mcg PO DAILY hypothyroidism 06/04/14 atorvastatin 40 mg tablet 40 mg PO QHS cholesterol 04/12/17 ipratropium 0.5 mg-albuterol 3 mg (2.5 mg base)/3 mL nebulization soln 3 ml inhalation Q6H PRN Sob &/Or Wheezing 04/12/17 budesonide 0.25 mg/2 mL suspension for nebulization 2 ml inhalation BID sob 07/18/18 insulin aspart U-100 100 unit/mL (3 mL) subcutaneous pen 10 unit subcut LUNCH diabetes 09/29/18 insulin aspart U-100 100 unit/mL (3 mL) subcutaneous pen 10 units subcut BREAKFAST diabetes 09/29/18 insulin aspart U-100 100 unit/mL (3 mL) subcutaneous pen 15 units subcut DINNER diabetes 09/29/18 amlodipine 2.5 mg tablet 2.5 mg PO DAILY #90 tabs 01/25/21 flash glucose sensor (FreeStyle Zayra 2 Sensor kit) #2 ea 05/17/21 lisinopril 40 mg tablet 40 mg PO DAILY BLOOD PRESSURE 06/06/21 aspirin 81 mg tablet,delayed release 325 mg PO DAILY@0800 [facility] 08/25/21 Trulicity 4.5 mg/0.5 mL subcutaneous pen injector (dulaglutide) 4.5 mg (0.5 mL) subcut QWEEK #6 mL 10/05/21 metformin 500 mg tablet,extended release 24 hr 500 mg PO BID dm #180 tabs 10/19/21 Levemir FlexTouch U-100 Insuln 100 unit/mL (3 mL) subcutaneous pen (insulin detemir U-100) 15 unit (0.15 mL) subcut QHS #39 mL 10/28/21 diltiazem HCl 120 mg capsule,extended release 24 hr 120 mg PO BIDCM #60 caps 09/23/22 furosemide 40 mg tablet 40 mg PO BID diuretic/water pill #60 tabs 10/28/21 sennosides 8.6 mg-docusate sodium 50 mg tablet (Stool Softener-Stimulant Laxative) 2 tab PO BID PRN PRN Constipation #0 tabs 10/28/21 The patient's discharge medication list was reviewed for discrepancies and discrepancies were resolved.
[2021-10-28 14:26] LABS: Bedside Glucose 175 mg/dL (74-106)
--- NOTE | 2021-10-28 16:54 | NURSING ---
Reviewed charting with Katelin Christy RN
== END 2021-10-28 17:31 | disposition home or self-care (01) | DRG 291 ==
LOC: ED 10-24 01:04 → PCU 10-24 01:27
PROVIDERS: Internal Medicine Nephrology; Admitting Provider Hospitalist; Emergency Provider Emergency Medicine; PCP Family Medicine; Visit Provider Internal Medicine
DX: I13.0 Hypertensive heart and chronic kidney disease with heart failure and stage 1 through stage 4 chronic kidney disease, or unspecified chronic kidney disease (principal); I50.33 Acute on chronic diastolic (congestive) heart failure; J96.21 Acute and chronic respiratory failure with hypoxia; J90 Pleural effusion, not elsewhere classified; N17.9 Acute kidney failure, unspecified; Z68.41 Body mass index [BMI] 40.0-44.9, adult; C32.9 Malignant neoplasm of larynx, unspecified; D64.9 Anemia, unspecified; Z93.0 Tracheostomy status; E11.22 Type 2 diabetes mellitus with diabetic chronic kidney disease; E11.42 Type 2 diabetes mellitus with diabetic polyneuropathy; E11.65 Type 2 diabetes mellitus with hyperglycemia; J43.9 Emphysema, unspecified; I48.0 Paroxysmal atrial fibrillation; Z79.4 Long term (current) use of insulin; C76.0 Malignant neoplasm of head, face and neck; E66.01 Morbid (severe) obesity due to excess calories; N18.31 Chronic kidney disease, stage 3a; E07.9 Disorder of thyroid, unspecified; I25.10 Atherosclerotic heart disease of native coronary artery without angina pectoris; E78.5 Hyperlipidemia, unspecified; E87.5 Hyperkalemia; Z87.891 Personal history of nicotine dependence; Z79.51 Long term (current) use of inhaled steroids
CPT/HCPCS: 31720; 32555; 36415; 71046; 80048; 80053; 80069; 82945; 82962; 83605; 83615; 83735; 83880; 84100; 84132; 84157; 84443; 84484; 85025; 85610; 85730; 88108; 88305; 88313; 89050; 93005; 93306; 94640; 97110; 97116; 97162; 97166; 97530; 97535; 99284; Q9957; A4216; C8929; J1940; J2405

== ENCOUNTER → 2021-11-08 | Outpatient (CLI) | payer MEDICARE, SELFPAY | END | disposition home or self-care (01) | LOC: POLAB3 14:01 | PROVIDERS: PCP Family Medicine; Visit Provider Internal Medicine Nephrology | DX: N18.32 Chronic kidney disease, stage 3b (principal) ==

== ENCOUNTER → 2021-11-08 | Outpatient (CLI) | payer MEDICARE, SELFPAY ==
[2021-11-08 13:38] LABS: Albumin, Serum 3.2 g/dL (3.2-5.0); BUN 33 mg/dL (7-18); BUN/Creat Ratio 18.1 RATIO (10-20); Calcium,Total 8.9 mg/dL (8.5-10.1); Chloride 99 mmol/L (98-107); Creatinine, Serum 1.82 mg/dL (0.70-1.30); EST Glomerular Filtration Rate 40 mL/min (>60); Est Glom Filt Rate - Afr Amer 48 mL/min (>60); Glucose 75 mg/dL (74-106); Potassium 3.8 mmol/L (3.5-5.1); Sodium Level 137 mmol/L (136-145)
== END | disposition home or self-care (01) ==
LOC: POLAB3 10:59
PROVIDERS: PCP Family Medicine; Visit Provider Internal Medicine Nephrology
DX: N17.9 Acute kidney failure, unspecified (principal); N18.32 Chronic kidney disease, stage 3b; D50.9 Iron deficiency anemia, unspecified
CPT/HCPCS: 36415; 80069

== ENCOUNTER 2021-11-18 13:22 | Emergency (ER) | payer MEDICARE, SELFPAY ==
[2021-11-18 13:23] VITALS: BP 150/91; PULSE 103; RESP 30; TEMP 36.9; O2SAT 89; BMI 41.8
[2021-11-18 13:33] VITALS: BP 133/48; PULSE 98; RESP 22; TEMP 36.9; O2SAT 96; O2SAT 97
--- NOTE | 2021-11-18 13:33 | RAD_ITS ---
STUDY: X-RAY CHEST REASON FOR EXAM: Male, 66 years old. Worsening dyspnea. TECHNIQUE: AP and lateral views of the chest. COMPARISON: Comparison is made with prior study dated 10/24/2021. FINDINGS: EKG electrodes are seen. Large left pleural effusion with left basilar atelectasis and infiltration. Mild degree of increased markings at the right lung base. Normal size heart. Normal mediastinum and laura. Normal visualized pulmonary arteries. There is atherosclerotic calcification of the aortic arch with tortuosity. Normal visualized thoracic spine. Normal visualized ribs, clavicles, and shoulders. There is no demonstrated abnormality of the visualized soft tissue structures of the upper abdomen. RAD/Chest PA and Lateral IMPRESSION: Large left pleural effusion with left basilar atelectasis and/or infiltrate. Electronically Signed: Tashi Lipscomb MD at 14:25 EDT ,
--- NOTE | 2021-11-18 13:34 | EKG12_ITS ---
Test Reason : SOB Blood Pressure : / mmHG Vent. Rate : 097 BPM Atrial Rate : 000 BPM P-R Int : 000 ms QRS Dur : 086 ms QT Int : 318 ms P-R-T Axes : 000 030 136 degrees QTc Int : 403 ms Atrial fibrillation Low voltage QRS Cannot rule out Anterior infarct , age undetermined Abnormal ECG Confirmed by ELIN CHENG, LUIS ([id number]), food expeditor ERON FUENTES ([id number]) on 11/21/2021 9:54:29 A M Referred By: Confirmed By:MARGE WORTHINGTON MD
--- NOTE | 2021-11-18 13:52 | EDS_ITS ---
HPI <PRABHU Benito - Last Filed: 11/18/21 15:26> History of Present Illness Chief Complaint: Shortness of Breath Narrative Narrative: 65 old male with PMH of HTN, HLD, DM2, COPD, CHF, A. fib, tracheostomy s/p laryngeal cancer in remission presents with 3 days of shortness of breath. He wears 2 to 4 L during the day and 4 L at night. He was admitted 3 weeks ago with progressive shortness of breath and had a pleural effusion that was drained. He was feeling fine until 3 days ago when dyspnea occurred again with a congested cough. He states after he coughs he can feels the congestion move anin his chest d he feels slightly better but does not bring up any phlegm. No chest pain. No fever or chills or other viral symptoms. He takes Lasix for bilateral lower extremity swelling but states his legs have been swollen since he left the hospital 3 weeks ago but are unchanged. PFSH <PRABHU Benito - Last Filed: 11/18/21 15:26> [facility] Medical History (HFpEF) heart failure with preserved ejection fraction Acute hypercapnic respiratory failure Ambulates with cane Anxiety Atherosclerosis of coronary artery of [place] heart without angina pectoris Back pain Benign neoplasm of colon Cholelithiasis Chronic diastolic (congestive) heart failure Chronic renal failure, stage 3 (moderate) COPD (chronic obstructive pulmonary disease) COPD with acute exacerbation Diabetes mellitus, type II Diverticulosis of colon (without mention of hemorrhage) Easy bruising Edema Emphysema, unspecified Esophageal dysmotility Essential hypertension Excessive bleeding Former smoker Gastric reflux Gastroenteritis Gout Hiatal hernia History of colon polyps History of renal disease History of steroid therapy History of stress test Hyperlipidemia Hypothyroidism Hypoxemia Injury of back Injury of head and neck Insomnia Kidney failure Laryngeal cancer Leg cramps Malignant neoplasm of head, neck and face Migraine headache Morbid obesity Morbid obesity Normal stress echocardiogram Obesity On home oxygen therapy Pleural effusion, left Polyneuropathy due to type 2 diabetes mellitus Shortness of breath Shortness of breath on exertion Thyroid disease Type 2 diabetes mellitus without complication Type 2 diabetes with stage 3 chronic kidney disease GFR 30-59 Walker as ambulation aid Wears glasses Home Medications levothyroxine 150 mcg tablet 150 mcg PO DAILY hypothyroidism 06/04/14 [History Last Taken 03/12/19] atorvastatin 40 mg tablet 40 mg PO QHS cholesterol 04/12/17 [History Last Taken 03/11/19] ipratropium 0.5 mg-albuterol 3 mg (2.5 mg base)/3 mL nebulization soln 3 ml inhalation Q6H PRN Sob &/Or Wheezing 04/12/17 [History Last Taken 03/12/19] budesonide 0.25 mg/2 mL suspension for nebulization 2 ml inhalation BID sob 07/18/18 [History Last Taken 03/12/19] insulin aspart U-100 100 unit/mL (3 mL) subcutaneous pen 10 unit subcut LUNCH diabetes 09/29/18 [History Last Taken 03/11/19] insulin aspart U-100 100 unit/mL (3 mL) subcutaneous pen 10 units subcut BREAKFAST diabetes 09/29/18 [History Last Taken 03/12/19] insulin aspart U-100 100 unit/mL (3 mL) subcutaneous pen 15 units subcut DINNER diabetes 09/29/18 [History Last Taken 03/11/19] flash glucose sensor (BlackboardStyle Zayra 2 Sensor kit) #2 ea 05/17/21 [Rx Last Taken Unknown] aspirin 81 mg tablet,delayed release 325 mg PO DAILY@0800 heart health 08/25/21 [History Last Taken Unknown] Trulicity 4.5 mg/0.5 mL subcutaneous pen injector (dulaglutide) 4.5 mg (0.5 mL) subcut QWEEK #6 mL 10/05/21 [Rx Last Taken Unknown] metformin 500 mg tablet,extended release 24 hr 500 mg PO BID dm #180 tabs 10/19/21 [Rx Last Taken Unknown] diltiazem HCl 120 mg capsule,extended release 24 hr 120 mg PO BIDCM #60 caps 10/28/21 [Rx Last Taken Unknown] furosemide 40 mg tablet 40 mg PO BID diuretic/water pill #60 tabs 10/28/21 [Rx Last Taken Unknown] sennosides 8.6 mg-docusate sodium 50 mg tablet (Stool Softener-Stimulant Laxative) 2 tab PO BID PRN PRN Constipation #0 tabs 10/28/21 [Rx Last Taken Unknown] insulin detemir U-100 100 unit/mL (3 mL) subcutaneous pen (Levemir FlexTouch U- 100 Insulin) 36 unit subcut QHS 11/07/21 [History Last Taken Unknown] lisinopril 5 mg tablet 5 mg PO BID 11/07/21 [History Last Taken Unknown] metolazone 2.5 mg tablet 2.5 mg PO .M,W,F 11/07/21 [History Last Taken Unknown] Allergy/AdvReac Type Severity Reaction Status Date / Time No Known Allergies Allergy Verified 11/18/21 13:23 Family History Mother Diabetes Hypertension Kidney disease Heart failure Father CVA (cerebral vascular accident) Hypertension Heart disease ischemic Brother Diabetes Surgical History History of cardiac catheterization History of exploratory laparotomy History of laryngectomy (2007) History of thyroidectomy Hx of colonoscopy Presence of tracheostomy Social History Smoking Status: Former smoker Smokeless tobacco user: snuff how long ago did patient quit smokin years ago alcohol intake: never substance use type: does not use caffeine: Yes what type of physical activity do you participate in: none frequency: does not exercise ROS <PRABHU Benito - Last Filed: 11/18/21 15:26> ROS ED ROS Narrative Constitutional: Negative for fever, chills, malaise. Eyes: Negative for visual change. ENT: Negative for sore throat, ear pain, rhinorrhea. CVS: Negative for palpitations, chest pain, syncope. Respiratory: Positive for shortness of breath, cough, orthopnea. GI: Negative for abdominal pain, nausea, vomiting, diarrhea, constipation, melena, hematochezia. : Negative for dysuria, hematuria or frequency. Neuro: Negative for headache, motor/sensory dysfunction. Skin: Negative for rash, abscess, or wound. Musc: Negative for joint pain, swelling, trauma. Heme: Negative for easy bruising, bleeding, lymphadenopathy. EXAM <PRABHU Benito - Last Filed: 11/18/21 15:26> Physical Exam Narrative Exam Narrative: CONST: Patient sitting in no acute distress. EYES: Normal inspection. NECK: Normal inspection. Tracheostomy in place. RESP: No respiratory distress, CTAB. CVS: Regular rate and rhythm, no murmur, no gallop. ABD: Soft and nontender, no guarding or rebound, nondistended.. Back: Normal inspection, no CVA tenderness. SKIN: Color normal, no rash, warm, dry, intact. EXTREMITIES: Normal appearance, 2+ pitting edema both ankles. NEURO: Oriented x4. PSYCH: Normal affect. Const Vital Signs: 11/18/21 13:23 11/18/21 13:33 11/18/21 13:33 Temperature 98.4 F 98.4 F Temperature [1 (Initial Baseline)] Temperature Source Temporal Temporal Pulse Rate 103 H 98 Pulse Rate [1 (Initial Baseline)] Pulse Rate [2] Pulse Rate [3] Respiratory Rate 30 H 22 H Respiratory Rate [1 (Initial Baseline)] Respiratory Rate [2] Respiratory Rate [3] Respiratory Effort Short of Breath Respiratory Depth Shallow Respiratory Pattern Normal Blood Pressure 150/91 H 133/48 H Blood Pressure [1 (Initial Baseline)] Blood Pressure [2] Blood Pressure [3] Blood Pressure Mean 110 76 Pulse Ox 89 96 Oxygen Delivery Method Room Air Trach Collar Trach Collar Oxygen Delivery Method [1 (Initial Baseline)] Oxygen Delivery Method [2] Oxygen Delivery Method [3] Oxygen Flow Rate (L/min) 4 4 Oxygen Flow Rate (L/min) [1 (Initial Baseline)] Oxygen Flow Rate (L/min) [2] Oxygen Flow Rate (L/min) [3] Fraction of Inspired Oxygen (FIO2) 11/18/21 14:28 11/18/21 14:24 11/18/21 15:10 Temperature 98.4 F Temperature [1 (Initial Baseline)] 98.9 F Temperature Source Temporal Pulse Rate 84 Pulse Rate [1 (Initial Baseline)] 93 Pulse Rate [2] 111 H Pulse Rate [3] 94 Respiratory Rate 20 H Respiratory Rate [1 (Initial Baseline)] 26 H Respiratory Rate [2] 24 H Respiratory Rate [3] 21 H Respiratory Effort Labored Respiratory Depth Respiratory Pattern Tachypnea Blood Pressure 135/78 H Blood Pressure [1 (Initial Baseline)] 141/82 H Blood Pressure [2] 140/76 H Blood Pressure [3] 134/83 H Blood Pressure Mean 97 Pulse Ox 96 97 Oxygen Delivery Method Trach Collar Trach Collar Oxygen Delivery Method [1 (Initial Baseline)] Trach Collar Oxygen Delivery Method [2] Trach Collar Oxygen Delivery Method [3] Trach Collar Oxygen Flow Rate (L/min) 6 4 Oxygen Flow Rate (L/min) [1 (Initial Baseline)] 4 Oxygen Flow Rate (L/min) [2] 4 Oxygen Flow Rate (L/min) [3] 4 Fraction of Inspired Oxygen (FIO2) 28 11/18/21 15:42 11/18/21 15:42 Temperature 98.9 F 98.9 F Temperature [1 (Initial Baseline)] Temperature Source Temporal Pulse Rate 88 78 Pulse Rate [1 (Initial Baseline)] Pulse Rate [2] Pulse Rate [3] Respiratory Rate 16 16 Respiratory Rate [1 (Initial Baseline)] Respiratory Rate [2] Respiratory Rate [3] Respiratory Effort Respiratory Depth Respiratory Pattern Blood Pressure 134/78 H 136/78 H Blood Pressure [1 (Initial Baseline)] Blood Pressure [2] Blood Pressure [3] Blood Pressure Mean 96 Pulse Ox 97 97 Oxygen Delivery Method Trach Collar Oxygen Delivery Method [1 (Initial Baseline)] Oxygen Delivery Method [2] Oxygen Delivery Method [3] Oxygen Flow Rate (L/min) 4 Oxygen Flow Rate (L/min) [1 (Initial Baseline)] Oxygen Flow Rate (L/min) [2] Oxygen Flow Rate (L/min) [3] Fraction of Inspired Oxygen (FIO2) <Dr. Bautista Ellis, DO - Last Filed: 11/18/21 22:21> Physical Exam Const Vital Signs: 11/18/21 13:23 11/18/21 13:33 11/18/21 13:33 Temperature 98.4 F 98.4 F Temperature [1 (Initial Baseline)] Temperature Source Temporal Temporal Pulse Rate 103 H 98 Pulse Rate [1 (Initial Baseline)] Pulse Rate [2] Pulse Rate [3] Respiratory Rate 30 H 22 H Respiratory Rate [1 (Initial Baseline)] Respiratory Rate [2] Respiratory Rate [3] Respiratory Effort Short of Breath Respiratory Depth Shallow Respiratory Pattern Normal Blood Pressure 150/91 H 133/48 H Blood Pressure [1 (Initial Baseline)] Blood Pressure [2] Blood Pressure [3] Blood Pressure Mean 110 76 Pulse Ox 89 96 Oxygen Delivery Method Room Air Trach Collar Trach Collar Oxygen Delivery Method [1 (Initial Baseline)] Oxygen Delivery Method [2] Oxygen Delivery Method [3] Oxygen Flow Rate (L/min) 4 4 Oxygen Flow Rate (L/min) [1 (Initial Baseline)] Oxygen Flow Rate (L/min) [2] Oxygen Flow Rate (L/min) [3] Fraction of Inspired Oxygen (FIO2) 11/18/21 14:28 11/18/21 14:24 11/18/21 15:10 Temperature 98.4 F Temperature [1 (Initial Baseline)] 98.9 F Temperature Source Temporal Pulse Rate 84 Pulse Rate [1 (Initial Baseline)] 93 Pulse Rate [2] 111 H Pulse Rate [3] 94 Respiratory Rate 20 H Respiratory Rate [1 (Initial Baseline)] 26 H Respiratory Rate [2] 24 H Respiratory Rate [3] 21 H Respiratory Effort Labored Respiratory Depth Respiratory Pattern Tachypnea Blood Pressure 135/78 H Blood Pressure [1 (Initial Baseline)] 141/82 H Blood Pressure [2] 140/76 H Blood Pressure [3] 134/83 H Blood Pressure Mean 97 Pulse Ox 96 97 Oxygen Delivery Method Trach Collar Trach Collar Oxygen Delivery Method [1 (Initial Baseline)] Trach Collar Oxygen Delivery Method [2] Trach Collar Oxygen Delivery Method [3] Trach Collar Oxygen Flow Rate (L/min) 6 4 Oxygen Flow Rate (L/min) [1 (Initial Baseline)] 4 Oxygen Flow Rate (L/min) [2] 4 Oxygen Flow Rate (L/min) [3] 4 Fraction of Inspired Oxygen (FIO2) 28 11/18/21 15:42 11/18/21 15:42 Temperature 98.9 F 98.9 F Temperature [1 (Initial Baseline)] Temperature Source Temporal Pulse Rate 88 78 Pulse Rate [1 (Initial Baseline)] Pulse Rate [2] Pulse Rate [3] Respiratory Rate 16 16 Respiratory Rate [1 (Initial Baseline)] Respiratory Rate [2] Respiratory Rate [3] Respiratory Effort Respiratory Depth Respiratory Pattern Blood Pressure 134/78 H 136/78 H Blood Pressure [1 (Initial Baseline)] Blood Pressure [2] Blood Pressure [3] Blood Pressure Mean 96 Pulse Ox 97 97 Oxygen Delivery Method Trach Collar Oxygen Delivery Method [1 (Initial Baseline)] Oxygen Delivery Method [2] Oxygen Delivery Method [3] Oxygen Flow Rate (L/min) 4 Oxygen Flow Rate (L/min) [1 (Initial Baseline)] Oxygen Flow Rate (L/min) [2] Oxygen Flow Rate (L/min) [3] Fraction of Inspired Oxygen (FIO2) [facility] <PRABHU Benito - Last Filed: 11/18/21 15:26> [facility] Narrative Medical decision making narrative: Patient with multiple comorbidities, tracheostomy on chronic oxygen presents with cough. He appears well and nontoxic. He arrived on room air and thus was noted to be tachypneic and hypoxic to 89% but once placed on his baseline 2 to 4 L via the trach collar is satting in the high 90s with improved respiratory rate. On examination his lungs are clear and he has 2+ lower extremity edema. Blood work shows stable anemia at 10.2. Creatinine of 1.55 is at baseline with no other acute abnormalities. proBNP 174. EKG is nonischemic and troponin is negative. CXR shows recurrent large left-sided pleural effusion. Cytology testing from the thoracentesis from prior admission was negative for malignant cells. I spoke with radiology who was able to arrange thoracentesis now. Patient tolerated procedure well without complications. ED attending interpretation of post procedure chest x-ray shows no pneumothorax. Patient counseled to follow-up with his drama therapist next week. At this time he feels improved and is on his baseline oxygen and appropriate for outpatient management. He was discharged in stable condition. Lab Data Attestation: I reviewed the patient's lab results. Labs: Laboratory Results - last 24 hr 11/18/21 11/18/21 11/18/21 13:45 13:45 13:45 WBC 11.4 H RBC 3.50 L Hgb 10.2 L Hct 32.3 L MCV 92.3 MCH 29.1 MCHC 31.6 L RDW Std Deviation 43.1 RDW Coeff of Alisson 12.8 Plt Count 378 MPV 9.0 Immature Gran % (Auto) 0.400 Neut % (Auto) 89.9 H Lymph % (Auto) 4.8 L [place] % (Auto) 4.6 Eos % (Auto) 0.2 Baso % (Auto) 0.1 Absolute Neuts (auto) 10.3 H Absolute Lymphs (auto) 0.55 L Nucleated RBC % 0 Differential Comment COMMENT PT INR APTT Sodium 138 Potassium 4.1 Chloride 100 Carbon Dioxide 32.0 Anion Gap 6 BUN 38 H Creatinine 1.55 H Estim Creat Clear Calc 49.93 Est GFR (MDRD) Af Amer 58 L Est GFR (MDRD) Non-Af 48 L BUN/Creatinine Ratio 24.5 H Glucose 151 H Calcium 8.8 Troponin I High Sens 14 B-Natriuretic Peptide 174.2 H 11/18/21 13:45 WBC RBC Hgb Hct MCV MCH MCHC RDW Std Deviation RDW Coeff of Alisson Plt Count MPV Immature Gran % (Auto) Neut % (Auto) Lymph % (Auto) [place] % (Auto) Eos % (Auto) Baso % (Auto) Absolute Neuts (auto) Absolute Lymphs (auto) Nucleated RBC % Differential Comment PT 13.6 INR 1.1 APTT 27.5 Sodium Potassium Chloride Carbon Dioxide Anion Gap BUN Creatinine Estim Creat Clear Calc Est GFR (MDRD) Af Amer Est GFR (MDRD) Non-Af BUN/Creatinine Ratio Glucose Calcium Troponin I High Sens B-Natriuretic Peptide Radiography Diagnostic Testing: Clinical Impression(s) from Imaging Studies Chest X-Ray 11/18/21 13:33 IMPRESSION: Large left pleural effusion with left basilar atelectasis and/or infiltrate. Electronically Signed: Tashi Lipscomb MD at 14:25 EDT , Thoracentesis Ultrasound 11/18/21 15:00 IMPRESSION: Ultrasound-guided left thoracentesis. Electronically Signed: Tashi Lipscomb MD at 15:38 EDT , Chest X-Ray 11/18/21 15:25 IMPRESSION: Status post left thoracentesis. No evidence of pneumothorax. Electronically Signed: Tashi Lipscomb MD at 15:35 EDT , ED attending interpretation of chest x-ray shows recurrent large left pleural effusion. EKG Initial EKG: Attestation: I personally reviewed and interpreted this EKG as follows: Comments: Atrial fibrillation at 97 bpm, QRS duration 86 ms, QTC 403 ms. No acute ischemic changes <Dr. Bautista Ellis, DO - Last Filed: 11/18/21 22:21> MDM MDM Narrative Medical decision making narrative: Patient with multiple comorbidities, tracheostomy on chronic oxygen presents with cough. He appears well and nontoxic. He arrived on room air and thus was noted to be tachypneic and hypoxic to 89% but once placed on his baseline 2 to 4 L via the trach collar is satting in the high 90s with improved respiratory rate. On examination his lungs are clear and he has 2+ lower extremity edema. Blood work shows stable anemia at 10.2. Creatinine of 1.55 is at baseline with no other acute abnormalities. proBNP 174. EKG is nonischemic and troponin is negative. CXR shows recurrent large left-sided pleural effusion. Cytology testing from the thoracentesis from prior admission was negative for malignant cells. I spoke with radiology who was able to arrange thoracentesis now. Patient tolerated procedure well without complications. ED attending interpretation of post procedure chest x-ray shows no pneumothorax. Patient counseled to follow-up with his drama therapist next week. At this time he feels improved and is on his baseline oxygen and appropriate for outpatient management. He was discharged in stable condition. Attending note: Patient seen and evaluated with rental car ferry driver. I perform my own [id number] evaluation. I agree with the plan of work-up. 3 days worsening dyspnea. Admitted few weeks ago pleural effusion with thoracentesis. History of throat cancer with tracheostomy tube. This was over 10 years ago. Reports cannot breathe without the tube. He was wearing oxygen at night since being discharged he wears oxygen during the day. Presented 89% on room air however should be on 2 to 4 L. Exam nontoxic no acute distress on oxygen. He had blunted breath sounds left side. Chest x-ray reviewed by myself and read by radiology notes recurrent pleural effusion up to two thirds of the lungs. Labs are stable. He is not on any anticoagulants. EKG rate controlled A. fib. Discussed with interventional radiology who was able to perform a thoracentesis in the ED noting 1700 cc output. Post chest x-ray film was ordered also reviewed by myself read by radiology no pneumothorax however there is still retained pleural fluid. Clinically was better. He will follow-up with his pulmonology team as an outpatient. All questions were answered. Lab Data Labs: Laboratory Results - last 24 hr 11/18/21 11/18/21 11/18/21 13:45 13:45 13:45 WBC 11.4 H RBC 3.50 L Hgb 10.2 L Hct 32.3 L MCV 92.3 MCH 29.1 MCHC 31.6 L RDW Std Deviation 43.1 RDW Coeff of Alisson 12.8 Plt Count 378 MPV 9.0 Immature Gran % (Auto) 0.400 Neut % (Auto) 89.9 H Lymph % (Auto) 4.8 L [place] % (Auto) 4.6 Eos % (Auto) 0.2 Baso % (Auto) 0.1 Absolute Neuts (auto) 10.3 H Absolute Lymphs (auto) 0.55 L Nucleated RBC % 0 Differential Comment COMMENT PT INR APTT Sodium 138 Potassium 4.1 Chloride 100 Carbon Dioxide 32.0 Anion Gap 6 BUN 38 H Creatinine 1.55 H Estim Creat Clear Calc 49.93 Est GFR (MDRD) Af Amer 58 L Est GFR (MDRD) Non-Af 48 L BUN/Creatinine Ratio 24.5 H Glucose 151 H Calcium 8.8 Troponin I High Sens 14 B-Natriuretic Peptide 174.2 H 11/18/21 13:45 WBC RBC Hgb Hct MCV MCH MCHC RDW Std Deviation RDW Coeff of Alisson Plt Count MPV Immature Gran % (Auto) Neut % (Auto) Lymph % (Auto) [place] % (Auto) Eos % (Auto) Baso % (Auto) Absolute Neuts (auto) Absolute Lymphs (auto) Nucleated RBC % Differential Comment PT 13.6 INR 1.1 APTT 27.5 Sodium Potassium Chloride Carbon Dioxide Anion Gap BUN Creatinine Estim Creat Clear Calc Est GFR (MDRD) Af Amer Est GFR (MDRD) Non-Af BUN/Creatinine Ratio Glucose Calcium Troponin I High Sens B-Natriuretic Peptide Radiography Diagnostic Testing: Clinical Impression(s) from Imaging Studies Chest X-Ray 11/18/21 13:33 IMPRESSION: Large left pleural effusion with left basilar atelectasis and/or infiltrate. Electronically Signed: Tashi Lipscomb MD at 14:25 EDT , Thoracentesis Ultrasound 11/18/21 15:00 IMPRESSION: Ultrasound-guided left thoracentesis. Electronically Signed: Tashi Lpiscomb MD at 15:38 EDT , Chest X-Ray 11/18/21 15:25 IMPRESSION: Status post left thoracentesis. No evidence of pneumothorax. Electronically Signed: Tashi Lipscomb MD at 15:35 EDT , Discharge Plan Triage Chief Complaint: Shortness of Breath ED Midlevel Provider: Soraida Guerra ED Provider: Bautista Ellis Dx/Rx/DC Orders Clinical Impression: Recurrent left pleural effusion, Acute dyspnea, Chronic a-fib Instructions: Chest Lung Problems Dx, ED Pleural Effusion Prescriptions: No Action budesonide 0.25 mg/2 mL suspension for nebulization 2 ml INHALATION BID lisinopril 5 mg tablet 5 mg PO BID Levemir FlexTouch U-100 Insuln 100 unit/mL (3 mL) insulin pen 36 unit subcut QHS metolazone 2.5 mg tablet 2.5 mg PO .M,W,F levothyroxine 150 MCG tablet 150 mcg PO DAILY Label Comments: thyroid atorvastatin 40 MG tablet 40 mg PO QHS ipratropium-albuterol 3 ML solution for nebulization 3 ml inhalation Q6H PRN (Reason: Sob &/Or Wheezing) Label Comments: breathing insulin aspart U-100 100 UNITS/ML insulin pen 10 units subcut BREAKFAST insulin aspart U-100 100 UNITS/ML insulin pen 10 unit subcut LUNCH insulin aspart U-100 100 UNITS/ML insulin pen 15 units subcut DINNER aspirin 81 mg tablet,delayed release (DR/EC) 325 mg PO DAILY@0800 diltiazem HCl 120 mg Capsule,Extended Release 24hr 120 mg PO BIDCM Qty: 60 0RF Rx Instructions: Hold for heart less than 60 or systolic blood pressure less than 100 mmHg. sennosides-docusate sodium [Stool Softener-Stimulant Laxat] 8.6-50 mg Tablet 2 tab PO BID PRN PRN (Reason: Constipation) Qty: 0 0RF Rx Instructions: Kazu-oid-mgzktel furosemide 40 mg tablet 40 mg PO BID Qty: 60 2RF (DME) FreeStyle Zayra 2 Sensor Kit See Rx Instructions .ROUTE .MEDSUPPLY Qty: 2 6RF Rx Instructions: As directed Trulicity 4.5 mg/0.5 mL pen injector 4.5 mg subcut QWEEK Qty: 6 1RF metformin 500 mg tablet extended release 24 hr 500 mg PO BID Qty: 180 1RF Hold Instructions: Hold for 7 days, resume when Cr Cl > 30 Ml/hr Primary Care Provider: Chinmay Sin Referrals: Chinmay Sin MD [Primary Care Provider] - TONY MARTINEZ PA [Non-Staff] - Activity Restrictions/Additional Instructions: You had a fluid buildup in the left lung. This is called a pleural effusion. It was drained today with a procedure called thoracentesis. You may need this again if it reoccurs. Call your drama therapist on Sunday to follow-up with them next week. If symptoms change or worsen before then come back to the ER. Disposition Disposition: Home, Self Care Discharge Date/Time: 11/18/21 15:59
[2021-11-18 13:57] LABS: Absolute Lymphocyte Count 0.55 X10^3/uL (0.83-4.51); Absolute Neutrophil Count 10.3 X10^3/uL (2.0-7.7); Basophil# 0.01 X10^3/uL; Basophil% 0.1 % (0-1); Eosinophil# 0.02 X10^3/uL; Eosinophils% 0.2 % (0-5); Hematocrit 32.3 % (40-54); Hemoglobin 10.2 g/dL (13.0-16.5); Lymphocyte # 0.55 X10^3/ul (0.83-4.51); Lymphocyte % 4.8 % (19-41); Mean Corp Hgb Conc 31.6 g/dL (32-36); Mean Corpuscular Hgb 29.1 pg (27.0-32.0); Mean Corpuscular Volume 92.3 fL (80-94); Monocyte# 0.53 X10^3/uL; Monocyte% 4.6 % (0-10); NRBC Flagged by Analyzer 0 % (0-5); Neutrophil # 10.27 X10^3/uL (2.7-7.7); Neutrophil % 89.9 % (47-70); POSITIVE DIFFERENTIAL YES; Platelet Count 378 K/mm3 (150-450); RBC Distribution Width CV 12.8 % (11.6-14.6); RBC Distribution Width SD 43.1 fl (35.1-43.9); White Blood Count 11.4 K/mm3 (4.4-11.0)
[2021-11-18 13:58] LABS: Differential Indicated SCAN CRITERIA MET
[2021-11-18 14:13] LABS: Anion Gap 6 (5-15); BUN 38 mg/dL (7-18); BUN/Creat Ratio 24.5 RATIO (10-20); Calcium,Total 8.8 mg/dL (8.5-10.1); Chloride 100 mmol/L (98-107); Creatinine, Serum 1.55 mg/dL (0.70-1.30); EST Glomerular Filtration Rate 48 mL/min (>60); Est Glom Filt Rate - Afr Amer 58 mL/min (>60); Estimated Creatinine Clearance 49.93 ml/min; Glucose 151 mg/dL (74-106); Potassium 4.1 mmol/L (3.5-5.1); Sodium Level 138 mmol/L (136-145); Troponin-I HS 14 pg/mL (3.0-78.0)
[2021-11-18 14:18] LABS: BNP,B-Type NATRIURETIC PEPTIDE 174.2 pg/mL (0-100)
[2021-11-18 14:24] VITALS: BP 135/78; PULSE 84; RESP 20; TEMP 36.9; O2SAT 97
[2021-11-18 14:28] VITALS: O2SAT 96
[2021-11-18 14:35] LABS: International Normalized Ratio 1.1; Prothrombin Time (Protime)PT. 13.6 SECONDS (11.7-14.9)
[2021-11-18 14:36] LABS: Partial Thromboplast Time 27.5 Seconds (24.1-36.2)
--- NOTE | 2021-11-18 15:00 | US_ITS ---
PROCEDURE: ULTRASOUND GUIDED THORACENTESIS. DATE: 11/18/2021. INDICATION: Male, 66 years old. Left pleural effusion. PHYSICIAN: Tashi Lipscomb M.D. PROCEDURE: The risks, benefits, and alternatives to the procedure were explained to the patient. The specific risks of bleeding, infection, and pneumothorax requiring chest tube insertion were discussed and accepted. Written informed consent was obtained. Ultrasonographic evaluation of the left lower pleural space was carried out. An adequate pocket was identified. The patient was placed in the sitting, upright position. The overlying skin was prepped and draped in sterile fashion. 1% lidocaine was administered subcutaneously for local anesthesia. Under ultrasound guidance, a 5 Spanish thoracentesis needle/catheter system was advanced into the left posterior lower pleural fluid collection. Approximately 1700 mL of sigifredo-colored fluid was drained. The catheter was removed, and a sterile dressing was applied. The patient tolerated the procedure well. A chest x-ray was ordered. US/Thoracentesis W US IMPRESSION: Ultrasound-guided left thoracentesis. Electronically Signed: Tashi Lipscomb MD at 15:38 EDT ,
[2021-11-18 15:10] VITALS: BP 134/83; BP 140/76; BP 141/82; PULSE 111; PULSE 93; PULSE 94; RESP 21; RESP 24; RESP 26; TEMP 37.2; O2SAT 96; O2SAT 97
--- NOTE | 2021-11-18 15:25 | RAD_ITS ---
STUDY: X-RAY CHEST REASON FOR EXAM: Male, 66 years old. Post thoracentesis TECHNIQUE: AP inspiration and expiration views. COMPARISON: Comparison is made with prior study done earlier in the day. FINDINGS: The patient is status post left thoracentesis. There is no evidence of pneumothorax. Persistent pleural parenchymal changes at the left lung base. RAD/Chest Insp/Exp 2 View IMPRESSION: Status post left thoracentesis. No evidence of pneumothorax. Electronically Signed: Tashi Lipscomb MD at 15:35 EDT ,
[2021-11-18 15:42] VITALS: BP 134/78; BP 136/78; PULSE 78; PULSE 88; RESP 16; TEMP 37.2; O2SAT 97
== END 2021-11-18 15:59 | disposition home or self-care (01) ==
PROVIDERS: Physician Assistant; Emergency Provider Emergency Medicine; PCP Family Medicine; Visit Provider Emergency Medicine
DX: J90 Pleural effusion, not elsewhere classified (principal); Z93.0 Tracheostomy status; J43.9 Emphysema, unspecified; I50.32 Chronic diastolic (congestive) heart failure; I13.0 Hypertensive heart and chronic kidney disease with heart failure and stage 1 through stage 4 chronic kidney disease, or unspecified chronic kidney disease; E11.42 Type 2 diabetes mellitus with diabetic polyneuropathy; E11.22 Type 2 diabetes mellitus with diabetic chronic kidney disease; I48.20 Chronic atrial fibrillation, unspecified; N18.30 Chronic kidney disease, stage 3 unspecified; E78.5 Hyperlipidemia, unspecified; Z87.891 Personal history of nicotine dependence; I25.10 Atherosclerotic heart disease of native coronary artery without angina pectoris; D64.9 Anemia, unspecified; R06.00 Dyspnea, unspecified
CPT/HCPCS: 32555; 71046; 80048; 83880; 84484; 85025; 85610; 85730; 93005; 99283

== ENCOUNTER 2021-12-06 11:46 | Inpatient (IN) | payer MEDICARE, SELFPAY ==
[2021-12-06] VITALS (12 sets, daily range): BP systolic 120–134; BP diastolic 75–94; PULSE 88–107; RESP 14–24; TEMP 36.5–36.7; O2SAT 93–100; BMI 41.8; BMI 41.5
--- NOTE | 2021-12-06 11:59 | EDS_ITS ---
HPI History of Present Illness Chief Complaint: Shortness of Breath Narrative Narrative: [id number] male here with shortness of breath. History of heart failure, COPD on 2 to 4 L baseline oxygen, type 2 diabetes, hypertension, atrial fibrillation, tracheostomy status post laryngeal cancer. Note several days of worsening dyspnea on exertion. States symptoms are constant, severe without factors. Improved by rest, exacerbated by exertion. Notes stable oxygen use at home. Denies cough. Denies any bleeding diathesis. The patient denies recent surgery in the last 4 weeks or immobilization in the last 3 days, denies previous diagnosis of DVT or PE, hemoptysis, unilateral leg swelling or malignancy with treatment the last 6 months. No estrogen use noted. Old chart reviewed: Seen in the emergency department for similar approximately 2 weeks ago. Underwent thoracentesis at that time and discharged home. Status post thoracentesis on 11/18/2021 last Last echocardiogram from October 2021 with an ejection fraction of 55% [facility] Medical History (HFpEF) heart failure with preserved ejection fraction Acute hypercapnic respiratory failure Ambulates with cane Anxiety Atherosclerosis of coronary artery of [place] heart without angina pectoris Back pain Benign neoplasm of colon Cholelithiasis Chronic diastolic (congestive) heart failure Chronic renal failure, stage 3 (moderate) COPD (chronic obstructive pulmonary disease) COPD with acute exacerbation Diabetes mellitus, type II Diverticulosis of colon (without mention of hemorrhage) Easy bruising Edema Emphysema, unspecified Esophageal dysmotility Essential hypertension Excessive bleeding Former smoker Gastric reflux Gastroenteritis Gout Hiatal hernia History of colon polyps History of renal disease History of steroid therapy History of stress test Hyperlipidemia Hypothyroidism Hypoxemia Injury of back Injury of head and neck Insomnia Kidney failure Laryngeal cancer Leg cramps Malignant neoplasm of head, neck and face Migraine headache Morbid obesity Morbid obesity Normal stress echocardiogram Obesity On home oxygen therapy Pleural effusion, left Polyneuropathy due to type 2 diabetes mellitus Shortness of breath Shortness of breath on exertion Thyroid disease Type 2 diabetes mellitus without complication Type 2 diabetes with stage 3 chronic kidney disease GFR 30-59 Walker as ambulation aid Wears glasses Home Medications levothyroxine 150 mcg tablet 150 mcg PO DAILY hypothyroidism 06/04/14 [History Last Taken 03/12/19] atorvastatin 40 mg tablet 40 mg PO QHS cholesterol 04/12/17 [History Last Taken 03/11/19] ipratropium 0.5 mg-albuterol 3 mg (2.5 mg base)/3 mL nebulization soln 3 ml inhalation Q6H PRN Sob &/Or Wheezing 04/12/17 [History Last Taken 03/12/19] budesonide 0.25 mg/2 mL suspension for nebulization 2 ml inhalation BID sob 07/18/18 [History Last Taken 03/12/19] insulin aspart U-100 100 unit/mL (3 mL) subcutaneous pen 10 unit subcut LUNCH diabetes 09/29/18 [History Last Taken 03/11/19] insulin aspart U-100 100 unit/mL (3 mL) subcutaneous pen 10 units subcut BREAKFAST diabetes 09/29/18 [History Last Taken 03/12/19] insulin aspart U-100 100 unit/mL (3 mL) subcutaneous pen 15 units subcut DINNER diabetes 09/29/18 [History Last Taken 03/11/19] flash glucose sensor (FreeStyle Zayra 2 Sensor kit) #2 ea 05/17/21 [Rx Last Taken Unknown] aspirin 81 mg tablet,delayed release 325 mg PO DAILY@0800 heart [facility] 08/25/21 [History Last Taken Unknown] Trulicity 4.5 mg/0.5 mL subcutaneous pen injector (dulaglutide) 4.5 mg (0.5 mL) subcut QWEEK #6 mL 10/05/21 [Rx Last Taken Unknown] metformin 500 mg tablet,extended release 24 hr 500 mg PO BID dm #180 tabs 10/19/21 [Rx Last Taken Unknown] diltiazem HCl 120 mg capsule,extended release 24 hr 120 mg PO BIDCM #60 caps 10/28/21 [Rx Last Taken Unknown] furosemide 40 mg tablet 40 mg PO BID diuretic/water pill #60 tabs 10/28/21 [Rx Last Taken Unknown] sennosides 8.6 mg-docusate sodium 50 mg tablet (Stool Softener-Stimulant Laxative) 2 tab PO BID PRN PRN Constipation #0 tabs 10/28/21 [Rx Last Taken Unknown] insulin detemir U-100 100 unit/mL (3 mL) subcutaneous pen (Levemir FlexTouch U- 100 Insulin) 36 unit subcut QHS 11/07/21 [History Last Taken Unknown] lisinopril 5 mg tablet 5 mg PO BID 11/07/21 [History Last Taken Unknown] metolazone 2.5 mg tablet 2.5 mg PO .M,W,F 11/07/21 [History Last Taken Unknown] Allergy/AdvReac Type Severity Reaction Status Date / Time egg [eggs] AdvReac Vomiting Verified 12/06/21 11:51 Family History Mother Diabetes Hypertension Kidney disease Heart failure Father CVA (cerebral vascular accident) Hypertension Heart disease ischemic Brother Diabetes Surgical History History of cardiac catheterization History of exploratory laparotomy History of laryngectomy (2007) History of thyroidectomy Hx of colonoscopy Presence of tracheostomy Social History Smoking Status: Former smoker Smokeless tobacco user: snuff how long ago did patient quit smokin years ago alcohol intake: never substance use type: does not use caffeine: Yes what type of physical activity do you participate in: none frequency: does not exercise ROS ROS ED ROS Narrative Constitutional: Denies fever, chills HEENT: Denies sore throat Neck: Denies neck pain Cardiovascular: Denies chest pain, syncope Respiratory: Endorses shortness of breath, dyspnea on exertion GI: Denies nausea vomiting or abdominal pain : Denies changes in urinary habits Musculoskeletal: Denies muscle or joint pain Neurologic: Denies numbness weakness or loss of sensation Skin denies rash EXAM Physical Exam Narrative Exam Narrative: Nursing triage notes reviewed, Vital signs reviewed Constitutional: please see mdm HENT: MMM Eyes: Pupils equal round and reactive to light, Extraocular muscles intact Neck: No stridor, no JVD, full neck ROM, tracheostomy noted no obvious bleeding Lungs: Diminished on the left, crackles noted in bilateral bases, no increased work of breathing, no conversational dyspnea, no accessory muscle use, no nasal flaring. No respiratory distress noted Heart: Regular rate and rhythm, No murmurs, No rubs and No gallops, 2+ distal pulses (radial, femoral, posterior tibial) in all extremities Abdomen: Soft, there is no tenderness, rigidity, rebound or guarding, no obvious peritoneal signs, no palpable pulsatile abdominal masses, no auscultated abdominal bruit : No CVAT Extremities: No edema Neuro: No focal neurological deficits, cranial nerves II through XII intact, 5/5 strength in all extremities. Intact sensation to light touch in all extremities, 2+ reflexes bilateral patella dens. Normal gait. No ataxia. Skin: No rash or lesions noted Const Vital Signs: 12/06/21 11:47 12/06/21 12:09 12/06/21 13:03 Temperature 97.7 F L Temperature Source Temporal Pulse Rate 91 Respiratory Rate 14 Respiratory Effort Short of Breath Respiratory Depth Normal Respiratory Pattern Normal Blood Pressure 131/85 H Blood Pressure Mean 100 Pulse Ox 93 93 Oxygen Delivery Method Room Air Room Air 12/06/21 14:06 12/06/21 15:03 Temperature Temperature Source Pulse Rate 107 H 94 Respiratory Rate 18 22 H Respiratory Effort Respiratory Depth Respiratory Pattern Blood Pressure 120/75 134/94 H Blood Pressure Mean 90 107 Pulse Ox 93 95 Oxygen Delivery Method Room Air Room Air MDM MDM MDM Narrative Medical decision making narrative: 66-year-old male here for shortness of breath in the setting of tracheostomy, status post laryngeal cancer which is in remission, COPD on 2 L, CHF and A. fib. Low risk Wells score makes PE less likely the patient was initially hemodynamically stable, afebrile, nontoxic-appearing. Lungs with crackles in bilateral bases no obvious focal consolidation. Concern for pleural effusion, pneumonia, COVID, ACS, arrhythmia, anemia, electrolyte abnormalities I obtained a broad lab and imaging work-up to further elucidate etiology of the patient complaints. Chest x-ray shows effusion versus infiltrate. COVID Neg. No significant anemia, no significant electrolyte abnormalities. No evidence of ACS. BNP downtrending from prior making CHF less likely. Lab Data Attestation: I reviewed the patient's lab results. Lab results narrative: CBC without leukocytosis, stable anemia, no thrombocytopenia BMP with no significant electrolyte abnormalities, no anion gap, no ALEJANDRA Troponin is negative, no evidence of myocardial ischemia BNP is slightly elevated, this is concerning for increased volume overload, increased ventricular stretch, increased transmural wall pressure however this downtrending from prior study. Labs: Laboratory Results - last 24 hr 12/06/21 12/06/21 12/06/21 12:20 12:20 12:20 WBC 7.9 RBC 3.39 L Hgb 9.8 L Hct 30.4 L MCV 89.7 MCH 28.9 MCHC 32.2 RDW Std Deviation 41.8 RDW Coeff of Alisson 12.8 Plt Count 315 MPV 9.7 Immature Gran % (Auto) 0.300 Neut % (Auto) 82.9 H Lymph % (Auto) 5.7 L Hooker % (Auto) 6.7 Eos % (Auto) 3.8 Baso % (Auto) 0.6 Absolute Neuts (auto) 6.6 Absolute Lymphs (auto) 0.45 L Nucleated RBC % 0 Sodium 139 Potassium 4.4 Chloride 102 Carbon Dioxide 31.0 Anion Gap 6 BUN 30 H Creatinine 1.36 H Estim Creat Clear Calc 56.91 Est GFR (MDRD) Af Amer 67 Est GFR (MDRD) Non-Af 56 L BUN/Creatinine Ratio 22.1 H Glucose 124 H Calcium 8.4 L Troponin I High Sens 15 B-Natriuretic Peptide 130.6 H EKG Initial EKG: Comments: EKG with rate controlled A. fib, normal axis, normal intervals, no Treatment and Re-Evaluation Narrative: The patient remained hemodynamically stable. He is appropriate admission given large pleural effusion, concern for infiltrate in the setting of multiple medical comorbidities and poor protoplasm. Discussed with patient physician Dr. Melgar who excepted the patient's case. Discharge Plan Triage Chief Complaint: Shortness of Breath ED Provider: Jorge Newsome Dx/Rx/DC Orders Prescriptions: No Action budesonide 0.25 mg/2 mL suspension for nebulization 2 ml INHALATION BID lisinopril 5 mg tablet 5 mg PO BID Levemir FlexTouch U-100 Insuln 100 unit/mL (3 mL) insulin pen 36 unit subcut QHS metolazone 2.5 mg tablet 2.5 mg PO .M,W,F levothyroxine 150 MCG tablet 150 mcg PO DAILY Label Comments: thyroid atorvastatin 40 MG tablet 40 mg PO QHS ipratropium-albuterol 3 ML solution for nebulization 3 ml inhalation Q6H PRN (Reason: Sob &/Or Wheezing) Label Comments: breathing insulin aspart U-100 100 UNITS/ML insulin pen 10 units subcut BREAKFAST insulin aspart U-100 100 UNITS/ML insulin pen 10 unit subcut LUNCH insulin aspart U-100 100 UNITS/ML insulin pen 15 units subcut DINNER aspirin 81 mg tablet,delayed release (DR/EC) 325 mg PO DAILY@0800 diltiazem HCl 120 mg Capsule,Extended Release 24hr 120 mg PO BIDCM Qty: 60 0RF Rx Instructions: Hold for heart less than 60 or systolic blood pressure less than 100 mmHg. sennosides-docusate sodium [Stool Softener-Stimulant Laxat] 8.6-50 mg Tablet 2 tab PO BID PRN PRN (Reason: Constipation) Qty: 0 0RF Rx Instructions: [id number] furosemide 40 mg tablet 40 mg PO BID Qty: 60 2RF (DME) FreeStyle Zayra 2 Sensor Kit See Rx Instructions .ROUTE .MEDSUPPLY Qty: 2 6RF Rx Instructions: As directed Trulicity 4.5 mg/0.5 mL pen injector 4.5 mg subcut QWEEK Qty: 6 1RF metformin 500 mg tablet extended release 24 hr 500 mg PO BID Qty: 180 1RF Hold Instructions: Hold for 7 days, resume when Cr Cl > 30 Ml/hr Primary Care Provider: Chinmay Sin Referrals: Chinmay Sin MD [Primary Care Provider] -
[2021-12-06 13:06] LABS: Absolute Lymphocyte Count 0.45 X10^3/uL (0.83-4.51); Absolute Neutrophil Count 6.6 X10^3/uL (2.0-7.7); Basophil# 0.05 X10^3/uL; Basophil% 0.6 % (0-1); Eosinophils% 3.8 % (0-5); Hematocrit 30.4 % (40-54); Hemoglobin 9.8 g/dL (13.0-16.5); Lymphocyte # 0.45 X10^3/ul (0.83-4.51); Lymphocyte % 5.7 % (19-41); Mean Corp Hgb Conc 32.2 g/dL (32-36); Mean Corpuscular Hgb 28.9 pg (27.0-32.0); Mean Corpuscular Volume 89.7 fL (80-94); Mean Platelet Vol. 9.7 fl (6.2-12.0); Monocyte# 0.53 X10^3/uL; Monocyte% 6.7 % (0-10); NRBC Flagged by Analyzer 0 % (0-5); Neutrophil # 6.58 X10^3/uL (2.7-7.7); Neutrophil % 82.9 % (47-70); POSITIVE DIFFERENTIAL YES; Platelet Count 315 K/mm3 (150-450); RBC Distribution Width CV 12.8 % (11.6-14.6); RBC Distribution Width SD 41.8 fl (35.1-43.9); Red Blood Count 3.39 M/mm3 (4.6-6.2); White Blood Count 7.9 K/mm3 (4.4-11.0)
[2021-12-06] MEDS: Aspirin 81 MG TAB.CHEW 324 MG PO (13:08)
--- NOTE | 2021-12-06 13:10 | RAD_ITS ---
STUDY: X-RAY CHEST REASON FOR EXAM: Male, 66 years old. Chest pain TECHNIQUE: AP and lateral views of the chest. COMPARISON: Comparison is made with prior study dated 11/18/2021. FINDINGS: EKG electrodes are seen. Moderate size left pleural effusion with left atelectasis. This has increased slightly as compared to prior study. The right lung remains clear. Normal size heart. Normal mediastinum and laura. Normal visualized pulmonary arteries. There is atherosclerotic calcification of the aortic arch with tortuosity. There are diffuse degenerative changes of the visualized thoracic spine. Normal visualized ribs, clavicles, and shoulders. There is no demonstrated abnormality of the visualized soft tissue structures of the upper abdomen. RAD/Chest 1 View (Portable) IMPRESSION: There has been mild increase in the left pleural effusion with underlying left basilar infiltrate and/or atelectasis. Electronically Signed: Tashi Lipscomb MD at 13:28 EDT ,
[2021-12-06 13:28] LABS: Anion Gap 6 (5-15); BUN 30 mg/dL (7-18); BUN/Creat Ratio 22.1 RATIO (10-20); Calcium,Total 8.4 mg/dL (8.5-10.1); Chloride 102 mmol/L (98-107); Creatinine, Serum 1.36 mg/dL (0.70-1.30); EST Glomerular Filtration Rate 56 mL/min (>60); Est Glom Filt Rate - Afr Amer 67 mL/min (>60); Estimated Creatinine Clearance 56.91 ml/min; Glucose 124 mg/dL (74-106); Potassium 4.4 mmol/L (3.5-5.1); Sodium Level 139 mmol/L (136-145); Troponin-I HS 15 pg/mL (3.0-78.0)
[2021-12-06 13:35] LABS: Differential Indicated SCAN CRITERIA MET
[2021-12-06 13:38] LABS: BNP,B-Type NATRIURETIC PEPTIDE 130.6 pg/mL (0-100)
--- NOTE | 2021-12-06 15:39 | PCM.HP.STD ---
HPI - General General Date of Admission: 12/06/21 Date of Service: 12/06/21 Chief Complaint: Dyspnea. HPI Narrative The patient is a 66 y/o M w/ PMHx: Chronic anemia, PAF, Morbid obesity, Diastolic CHF, HTN, HLD, Anxiety and Depression, CAD, Diabetes mellitus type II w/ neuropathy, Hx Laryngeal CA, CKD stage III unclear subtype, Hypothyroidism, COPD with Chronic Hypoxic Respiratory Failure w/ tracheostomy (2-4L NC) who presents to the [facility] ED on 12/06/21 with history of worsening dyspnea over the last several days, worse with exertion although he does have them even at rest although slightly lessened with ongoing stable usage of his chronic 2 to 4 L nasal cannula with no recent increased cough or wheezing however given its not been improving prompted ED evaluation. He does report his weight has not changed markedly and he does have some chronic pedal to mid sebastian pitting edema to bilateral lower extremity and this is only mildly worsened than his baseline. He does note history consistent with orthopnea but does have this chronically as well recent 10/2021 admission for atrial fibrillation with RVR at that time and also seen in the ED on 11/18/2021 with left-sided thoracentesis performed. Work-up in the ED included T97.7, heart rate 91, BP 131/85, respiratory rate 14, 93% on room air, CBC with WC 7.9, hemoglobin 9.8, platelet 315 with mildly increased neutrophils and lymphopenia, BMP with BUN/creatinine 30/1.36, glucose 124, calcium 8.4, troponin 15, BNP 130.6, rapid COVID antigen negative, chest x-ray with significant recurrent left-sided pleural effusion and chronic changes however final read is pending upon evaluation, EKG with rate controlled atrial fibrillation with no acute evidence of ischemia. In the ED patient ministered aspirin 324 mg p.o. x1 as well as azithromycin 500 mg IV x1 and Rocephin 1 g IV x1. [facility] Medical History (HFpEF) heart failure with preserved ejection fraction Acute hypercapnic respiratory failure Ambulates with cane Anxiety Atherosclerosis of coronary artery of [place] heart without angina pectoris Back pain Benign neoplasm of colon Cholelithiasis Chronic diastolic (congestive) heart failure Chronic renal failure, stage 3 (moderate) COPD (chronic obstructive pulmonary disease) COPD with acute exacerbation Diabetes mellitus, type II Diverticulosis of colon (without mention of hemorrhage) Easy bruising Edema Emphysema, unspecified Esophageal dysmotility Essential hypertension Excessive bleeding Former smoker Gastric reflux Gastroenteritis Gout Hiatal hernia History of colon polyps History of renal disease History of steroid therapy History of stress test Hyperlipidemia Hypothyroidism Hypoxemia Injury of back Injury of head and neck Insomnia Kidney failure Laryngeal cancer Leg cramps Malignant neoplasm of head, neck and face Migraine headache Morbid obesity Morbid obesity Normal stress echocardiogram Obesity On home oxygen therapy Pleural effusion, left Polyneuropathy due to type 2 diabetes mellitus Shortness of breath Shortness of breath on exertion Thyroid disease Type 2 diabetes mellitus without complication Type 2 diabetes with stage 3 chronic kidney disease GFR 30-59 Walker as ambulation aid Wears glasses Home Medications levothyroxine 150 mcg tablet 150 mcg PO DAILY hypothyroidism 06/04/14 [History Last Taken 03/12/19] atorvastatin 40 mg tablet 40 mg PO QHS cholesterol 04/12/17 [History Last Taken 03/11/19] ipratropium 0.5 mg-albuterol 3 mg (2.5 mg base)/3 mL nebulization soln 3 ml inhalation Q6H PRN Sob &/Or Wheezing 04/12/17 [History Last Taken 03/12/19] budesonide 0.25 mg/2 mL suspension for nebulization 2 ml inhalation BID sob 07/18/18 [History Last Taken 03/12/19] insulin aspart U-100 100 unit/mL (3 mL) subcutaneous pen 10 unit subcut LUNCH diabetes 09/29/18 [History Last Taken 03/11/19] insulin aspart U-100 100 unit/mL (3 mL) subcutaneous pen 10 units subcut BREAKFAST diabetes 09/29/18 [History Last Taken 03/12/19] insulin aspart U-100 100 unit/mL (3 mL) subcutaneous pen 15 units subcut DINNER diabetes 09/29/18 [History Last Taken 03/11/19] flash glucose sensor (FreeStyle Zayra 2 Sensor kit) #2 ea 05/17/21 [Rx Last Taken Unknown] aspirin 81 mg tablet,delayed release 325 mg PO DAILY@0800 heart health 08/25/21 [History Last Taken Unknown] Trulicity 4.5 mg/0.5 mL subcutaneous pen injector (dulaglutide) 4.5 mg (0.5 mL) subcut QWEEK #6 mL 10/05/21 [Rx Last Taken Unknown] metformin 500 mg tablet,extended release 24 hr 500 mg PO BID dm #180 tabs 10/19/21 [Rx Last Taken Unknown] diltiazem HCl 120 mg capsule,extended release 24 hr 120 mg PO BIDCM #60 caps 10/28/21 [Rx Last Taken Unknown] furosemide 40 mg tablet 40 mg PO BID diuretic/water pill #60 tabs 10/28/21 [Rx Last Taken Unknown] sennosides 8.6 mg-docusate sodium 50 mg tablet (Stool Softener-Stimulant Laxative) 2 tab PO BID PRN PRN Constipation #0 tabs 10/28/21 [Rx Last Taken Unknown] insulin detemir U-100 100 unit/mL (3 mL) subcutaneous pen (Levemir FlexTouch U-100 Insulin) 36 unit subcut QHS 11/07/21 [History Last Taken Unknown] lisinopril 5 mg tablet 5 mg PO BID 11/07/21 [History Last Taken Unknown] metolazone 2.5 mg tablet 2.5 mg PO .M,W,F 11/07/21 [History Last Taken Unknown] Allergy/AdvReac Type Severity Reaction Status Date / Time egg [eggs] AdvReac Vomiting Verified 12/06/21 11:51 Family History Mother Diabetes Hypertension Kidney disease Heart failure Father CVA (cerebral vascular accident) Hypertension Heart disease ischemic Brother Diabetes Surgical History History of cardiac catheterization History of exploratory laparotomy History of laryngectomy (2007) History of thyroidectomy Hx of colonoscopy Presence of tracheostomy Social History Smoking Status: Former smoker Smokeless tobacco user: snuff how long ago did patient quit smokin years ago alcohol intake: never substance use type: does not use caffeine: Yes what type of physical activity do you participate in: none frequency: does not exercise ROS ROS Narrative Admission Review of Systems: CONSTITUTIONAL: No weight loss, fever, chills, + weakness or fatigue. HEENT: Eyes: No visual loss, blurred vision, double vision or yellow sclerae. Ears, Nose, Throat: No hearing loss, sneezing, congestion, runny nose or sore throat. SKIN: No rash or itching, lesions, wounds. CARDIOVASCULAR: + Edema, orthopnea, no chest pain, chest pressure or chest discomfort, palpitations, syncopal events. RESPIRATORY: + shortness of breath, occasional cough without productive sputum, No wheezing, hemoptysis. GASTROINTESTINAL: No anorexia, nausea, vomiting or diarrhea, abdominal pain, melena, BRBPR. GENITOURINARY: No dysuria, frequency, urgency or retention. NEUROLOGICAL: No headache, dizziness, syncope, paralysis, ataxia, numbness or tingling in the extremities, focal weakness, change in bowel or bladder control, seizure. MUSCULOSKELETAL:+ muscle, back pain, joint pain or stiffness. HEMATOLOGIC: + anemia, bleeding or bruising. LYMPHATICS: No enlarged nodes. No history of splenectomy. PSYCHIATRIC: No history of depression or anxiety. ENDOCRINOLOGIC: No reports of sweating, cold or heat intolerance. No polyuria or polydipsia. ALLERGIES: No history of asthma, hives, eczema or rhinitis. Vital Signs Vital Signs Vital Signs: 12/06/21 11:47 12/06/21 12:09 12/06/21 13:03 Temperature 97.7 F L Temperature Source Temporal Pulse Rate 91 Respiratory Rate 14 Respiratory Effort Short of Breath Respiratory Depth Normal Respiratory Pattern Normal Blood Pressure 131/85 H Blood Pressure Mean 100 Pulse Ox 93 93 Oxygen Delivery Method Room Air Room Air 12/06/21 14:06 12/06/21 15:03 Temperature Temperature Source Pulse Rate 107 H 94 Respiratory Rate 18 22 H Respiratory Effort Respiratory Depth Respiratory Pattern Blood Pressure 120/75 134/94 H Blood Pressure Mean 90 107 Pulse Ox 93 95 Oxygen Delivery Method Room Air Room Air Weight Weight: 300 lb Body Mass Index (BMI) 41.8 Physical Exam Narrative Physical Examination: General: Awake, alert, oriented x 3 and cooperative, seated upright in the ED bed, fatigued otherwise no acute distress. Skin: Normal color, normal turgor, no icterus, no cyanosis except for occasional staged ecchymoses to extremities. HEENT: AT/NC, EOMI, PERRLA, MMM, no carotid bruits or JVD noted however thickened neck makes evaluation difficult, tracheostomy present with supplementation directed. Lungs: Diminished, left greater than right to mid posterior field, distant breath sounds right-sided, mild rales, no rhonchi or wheezing, no evidence of distress. Heart: Irregular, rate controlled; no gallop, rub audible. Abdomen: Soft, morbidly obese, NTTP, no obvious distention but habitus makes evaluation difficult, distant BS, difficult assess HSM given habitus. Extremities: No cyanosis, no clubbing, bilateral lower extremity pedal to proximal sebastian 1-2+ pitting edema. Neurological: Patient awake, alert, oriented as noted, cognitive function intact; pupils equally reactive to light and accommodation, cranial nerves II-XII grossly normal, moving all 4 extremities, no focal deficits, strength moderately to severely global decrease secondary to acute presentation complaints. Psychiatric: Affect appears fatigued otherwise normal, no acute evidence of depressive or anxiety feelings. Results Lab / Micro Data Result Diagrams: 12/06/21 12:20 12/06/21 12:20 Labs: Laboratory Results - last 24 hr 12/06/21 12:20: WBC 7.9, RBC 3.39 L, Hgb 9.8 L, Hct 30.4 L, MCV 89.7, MCH 28.9, MCHC 32.2, RDW Std Deviation 41.8, RDW Coeff of [place]isson 12.8, Plt Count 315, MPV 9.7, Immature Gran % (Auto) 0.300, Neut % (Auto) 82.9 H, Lymph % (Auto) 5.7 L, [place] % (Auto) 6.7, Eos % (Auto) 3.8, Baso % (Auto) 0.6, Absolute Neuts (auto) 6.6, Absolute Lymphs (auto) 0.45 L, Nucleated RBC % 0 12/06/21 12:20: Sodium 139, Potassium 4.4, Chloride 102, Carbon Dioxide 31.0, Anion Gap 6, BUN 30 H, Creatinine 1.36 H, Estim Creat Clear Calc 56.91, Est GFR (MDRD) Af Amer 67, Est GFR (MDRD) Non-Af 56 L, BUN/Creatinine Ratio 22.1 H, Glucose 124 H, Calcium 8.4 L, Troponin I High Sens 15 12/06/21 12:20: B-Natriuretic Peptide 130.6 H Micro: Microbiology 12/06/21 12:20 Nasal Secretion SARS-CoV-2 & FLU Antigen (Rapid) - Final Assessment & Plan Assessment/Plan (1) Dyspnea: PLAN: Plan The patient is a 66 y/o M w/ PMHx: Chronic anemia, PAF, Morbid obesity, Diastolic CHF, HTN, HLD, Anxiety and Depression, CAD, Diabetes mellitus type II w/ neuropathy, Hx Laryngeal CA, CKD stage III unclear subtype, Hypothyroidism, COPD with Chronic Hypoxic Respiratory Failure w/ tracheostomy (2-4L NC) who presents to the [facility] ED on 12/06/21 with history of worsening dyspnea over the last several days, worse with exertion although he does have them even at rest although slightly lessened with ongoing stable usage of his chronic 2 to 4 L nasal cannula with no recent increased cough or wheezing however given its not been improving prompted ED evaluation. #1. Dyspnea secondary to Recurrent L sided Pleural effusion with possible underlying Pneumonia but unable to delineate given significant effusion complicated by concurrent underlying Chronic diastolic CHF/nonischemic cardiomyopathy: Will admit to PCU, will continue patient aspirin, statin, not on beta-north as on diltiazem, lisinopril, administer IV lasix pending ability to perform thoracentesis. Of note recent 10/24/2021 echocardiogram with normal LV size, normal LV systolic function, EF 55% thus will not repeat. Mag pending. TSH pending. Will cycle cardiac enzymes to be cautious. Will place snug leslie wraps. Will request AM L sided thoracentesis. Of note last CT 09/02/2020 with lung windows demonstrated chronic incisional changes in both lung pal with scattered areas of groundglass opacification suggestive of small airway inflammation and pleural-based noncalcified 7 mm nodule in the left lower lobe at that time. We will continue IV Rocephin as well as azithromycin with requested sputum culture, respiratory viral panel and antigens however will obtain procalcitonin is at this time unable to significantly delineate if there is truly an infectious process underneath the effusion therefore a thoracentesis performed and repeat imaging with no obvious evidence of infection will de-escalate quickly. Given recurrent thoracentesis low threshold to obtain CT following thoracentesis. #2. Nonobstructive CAD: We will continue patient aspirin, statin, not on beta-north as on diltiazem, lisinopril #3. PAF: EKG upon presentation with rate controlled atrial fibrillation. We will continue patient home diltiazem regimen, currently on aspirin therapy only, will investigate etiology for lack of anticoagulation as patient with significant risk but at this time will hold on initiating until completed thoracentesis and at that time would plan to start 5 mg twice daily as only item to altered dosing would be patient creatinine thus he does not meet the 2 criteria to decrease the dose. #4. Hypertension: Continue home regimen including metolazone, lisinopril, Lasix, diltiazem, PRN hydralazine. #5. Hyperlipidemia: We will continue patient on statin therapy. #6. Chronic normocytic anemia: Admission hemoglobin 9.8, baseline hemoglobin 10 range, stable, continue to trend. #7. History laryngeal cancer: Status post prior laryngectomy as well as tracheostomy, considered in remission, encourage continued outpatient follow-up. #8. Chronic Kidney Disease Stage III, unclear subtype: Admission BUN/Cr 30/1.36, baseline renal function appears primarily 1.4-1.7, repeat BMP in AM. Following with nephrology outpatient especially given usage of diuretic. #9. Diabetes mellitus type II with neuropathy: Hold oral home regimen, continue home insulin regimen, ADA diet, accu checks w/ ISS. #10. Hypothyroidism: Continue home synthroid regimen. #11. Morbid Obesity: Weight loss and lifestyle changes encouraged. #12. Former tobacco use: Encourage continued tobacco cessation. #13. COPD with Chronic Hypoxic Respiratory Failure w/ tracheostomy (2-4L NC): [place] continue home chronic oxygen supplementation, continue patient home budesonide regimen, PRN albuterol, HOB, IS parameters. #14. DVT prophylaxis: SCDs, defer chemoprophylaxis for planned thoracentesis. #15. CODE status: Patient does not have healthcare power of civil rights attorney nor living will in place however his significant would be his decision maker he now. Discussed CODE status at length including difference between FULL code, DNR-CCA and DNR-CC status. Following discussions about the differences in these status, requested Full Code status. Advanced Care Planning Face to Face Time: 16 minutes. Charges/Coding Visit Charges Inpatient E&M: 18223 Init Hosp L3 Procedures Hospitalists Procedures: 22086 Advncd Care Plan 30 Min
--- NOTE | 2021-12-06 15:53 | NURSING ---
PCU WHITE PLEURAL EFFUSION
[2021-12-06 16:37] LABS: Globulin 3.4 g/dL (2.2-4.2); LDH 211 U/L (87-241); Protein, Total 6.7 g/dL (6.4-8.2)
[2021-12-06 16:45] LABS: Procalcitonin 0.07 ng/mL (0.00-0.09)
--- NOTE | 2021-12-06 17:10 | EKG12_ITS ---
Test Reason : CP Blood Pressure : / mmHG Vent. Rate : 081 BPM Atrial Rate : 000 BPM P-R Int : 000 ms QRS Dur : 082 ms QT Int : 362 ms P-R-T Axes : 000 026 104 degrees QTc Int : 420 ms Atrial fibrillation Low voltage QRS Cannot rule out Anterior infarct , age undetermined Abnormal ECG When compared with ECG of 06-DEC-2021 13:01, Nonspecific T wave abnormality, improved in Lateral leads Confirmed by BALTAZAR CHENG, ALEXANDER ([id number]), associate editor ERON FUENTES ([id number]) on 12/14/2021 11:41:46 AM Referred By: Confirmed By:ALEXANDER LEDESMA MD
[2021-12-06] MEDS: Furosemide 40 MG/4 ML Vial IV (18:00)
[2021-12-06] MEDS: dilTIAZem CD 120 MG Capsule PO (18:00)
[2021-12-06 18:15] LABS: Bedside Glucose 119 mg/dL (74-106)
[2021-12-06] MEDS: Ceftriaxone 1 GM/50 ML BAG IV (18:44)
[2021-12-06 19:07] LABS: Troponin-I HS 16 pg/mL (3.0-78.0)
[2021-12-06] MEDS: Ipratropium/Albuterol Sulfate 3 ML AMPUL.NEB INHALATION (20:40)
[2021-12-06] MEDS: Budesonide Respules 0.5 MG/2 ML AMPUL.NEB. INHALATION (20:40)
[2021-12-06] MEDS: Insulin Glargine-YFGN 100 UNIT/ML Pen 36 UNIT SC (21:39)
[2021-12-06] MEDS: Atorvastatin Calcium 40 MG Tablet PO (21:40)
[2021-12-06] MEDS: MELATONIN 10 MG TABLET 20 MG PO (21:41)
[2021-12-06 22:00] LABS: M R Staph aureus DNA By PCR Negative (Negative); Probe Check PASS; Specimen Processing Control PASS
[2021-12-06 22:31] LABS: Bedside Glucose 100 mg/dL (74-106)
[2021-12-07] VITALS (16 sets, daily range): BP systolic 117–132; BP diastolic 68–94; PULSE 70–119; RESP 18–22; TEMP 36.2–36.8; O2SAT 95–100
[2021-12-07] MEDS: Ipratropium/Albuterol Sulfate 3 ML AMPUL.NEB INHALATION ×4 (03:13→19:00)
[2021-12-07] MEDS: Levothyroxine 150 MCG Tablet PO (05:30)
[2021-12-07 06:35] LABS: Bedside Glucose 86 mg/dL (74-106)
[2021-12-07 06:36] LABS: Absolute Neutrophil Count 4.2 X10^3/uL (2.0-7.7); Basophil# 0.05 X10^3/uL; Basophil% 0.9 % (0-1); Eosinophil# 0.33 X10^3/uL; Eosinophils% 5.7 % (0-5); Hematocrit 30.7 % (40-54); Hemoglobin 9.7 g/dL (13.0-16.5); Mean Corp Hgb Conc 31.6 g/dL (32-36); Mean Corpuscular Hgb 28.8 pg (27.0-32.0); Mean Corpuscular Volume 91.1 fL (80-94); Mean Platelet Vol. 9.8 fl (6.2-12.0); Monocyte# 0.58 X10^3/uL; Monocyte% 9.9 % (0-10); NRBC Flagged by Analyzer 0 % (0-5); Neutrophil # 4.15 X10^3/uL (2.7-7.7); Neutrophil % 71.2 % (47-70); Platelet Count 294 K/mm3 (150-450); RBC Distribution Width CV 12.7 % (11.6-14.6); RBC Distribution Width SD 41.8 fl (35.1-43.9); Red Blood Count 3.37 M/mm3 (4.6-6.2); White Blood Count 5.8 K/mm3 (4.4-11.0)
[2021-12-07 07:13] LABS: ALB/GLOB Ratio 0.8 RATIO (0.9-2.4); AST(SGOT) 13 U/L (15-37); Alanine Aminotransfer ALT/SGPT 18 U/L (16-61); Albumin, Serum 3.1 g/dL (3.2-5.0); Alkaline Phosphatase 100 U/L (45-117); Anion Gap 6 (5-15); BUN 31 mg/dL (7-18); BUN/Creat Ratio 23.5 RATIO (10-20); Calcium,Total 8.4 mg/dL (8.5-10.1); Chloride 100 mmol/L (98-107); Cholesterol 87 mg/dL (200); Creatinine, Serum 1.32 mg/dL (0.70-1.30); EST Glomerular Filtration Rate 58 mL/min (>60); Est Glom Filt Rate - Afr Amer 70 mL/min (>60); Estimated Creatinine Clearance 58.63 ml/min; Globulin 3.8 g/dL (2.2-4.2); Glucose 96 mg/dL (74-106); High Density Lipoprotein 35 mg/dL; Potassium 4.1 mmol/L (3.5-5.1); Protein, Total 6.9 g/dL (6.4-8.2); Sodium Level 138 mmol/L (136-145); T4 Free Direct 1.15 ng/dL (0.76-1.46); Thyroid Stim Hormone (TSH) 1.86 uIU/mL (0.358-3.74); Triglycerides 72 mg/dL; Very Low Density Lipoprotein 14 mg/dL (5-40)
--- NOTE | 2021-12-07 07:26 | PCM.PN.HOSP ---
Subjective Subjective Patient is a 66-year-old gentleman with multiple comorbidities admitted with shortness of breath and assessment of congestive heart failure made admitted to a monitored bed for subsequent management Objective Data Objective Data Vital Signs: Vital Signs Temp Pulse Resp BP Pulse Ox O2 Del Method FiO2 97.4 F L 95 18 131/92 H 98 Trach Collar 30 12/07/21 03:33 12/07/21 03:33 12/07/21 03:33 12/07/21 03:33 12/07/21 03:33 12/07/21 03:35 12/07/21 03:33 Oxygen Delivery Method Trach Collar Weight: 138.7 kg Body Mass Index (BMI) 41.5 Intake & Output: Intake and Output for Last 24 Hours 12/05/21 12/06/21 12/07/21 23:59 23:59 23:59 Intake Total 485 / 485 Output Total 300 / 300 Balance 485 / 485 -300 / -300 Lab / Micro Data Result Diagrams: 12/07/21 05:52 12/07/21 05:52 Labs: Laboratory Results - last 24 hr 12/06/21 12:20: WBC 7.9, RBC 3.39 L, Hgb 9.8 L, Hct 30.4 L, MCV 89.7, MCH 28.9, MCHC 32.2, RDW Std Deviation 41.8, RDW Coeff of Alisson 12.8, Plt Count 315, MPV 9.7, Immature Gran % (Auto) 0.300, Neut % (Auto) 82.9 H, Lymph % (Auto) 5.7 L, [place] % (Auto) 6.7, Eos % (Auto) 3.8, Baso % (Auto) 0.6, Absolute Neuts (auto) 6.6, Absolute Lymphs (auto) 0.45 L, Nucleated RBC % 0 12/06/21 12:20: Sodium 139, Potassium 4.4, Chloride 102, Carbon Dioxide 31.0, Anion Gap 6, BUN 30 H, Creatinine 1.36 H, Estim Creat Clear Calc 56.91, Est GFR (MDRD) Af Amer 67, Est GFR (MDRD) Non-Af 56 L, BUN/Creatinine Ratio 22.1 H, Glucose 124 H, Calcium 8.4 L, Troponin I High Sens 15 12/06/21 12:20: B-Natriuretic Peptide 130.6 H 12/06/21 15:50: Magnesium 2.0, Lactate Dehydrogenase 211, Total Protein 6.7, Globulin 3.4, Albumin/Globulin Ratio 1.0 12/06/21 15:50: Procalcitonin 0.07 12/06/21 17:50: POC Glucose 119 H 12/06/21 18:35: Troponin I High Sens 16 12/06/21 19:41: MRSA (PCR) Negative 12/06/21 21:37: POC Glucose 100 12/07/21 05:52: WBC 5.8, RBC 3.37 L, Hgb 9.7 L, Hct 30.7 L, MCV 91.1, MCH 28.8, MCHC 31.6 L, RDW Std Deviation 41.8, RDW Coeff of Alisson 12.7, Plt Count 294, MPV 9.8, Immature Gran % (Auto) 0.300, Neut % (Auto) 71.2 H, Lymph % (Auto) 12.0 L, [place] % (Auto) 9.9, Eos % (Auto) 5.7 H, Baso % (Auto) 0.9, Absolute Neuts (auto) 4.2, Absolute Lymphs (auto) 0.70 L, Nucleated RBC % 0 12/07/21 05:52: Sodium 138, Potassium 4.1, Chloride 100, Carbon Dioxide 32.0, Anion Gap 6, BUN 31 H, Creatinine 1.32 H, Estim Creat Clear Calc 58.63, Est GFR (MDRD) Af Amer 70, Est GFR (MDRD) Non-Af 58 L, BUN/Creatinine Ratio 23.5 H, Glucose 96, Calcium 8.4 L, Total Bilirubin 0.30, AST 13 L, ALT 18, Alkaline Phosphatase 100, Total Protein 6.9, Albumin 3.1 L, Globulin 3.8, Albumin/Globulin Ratio 0.8 L, Triglycerides 72, Cholesterol 87, LDL Cholesterol 38, VLDL Cholesterol 14, HDL Cholesterol 35 L, TSH 1.86, Free T4 1.15 12/07/21 06:17: POC Glucose 86 Micro: Microbiology 12/07/21 04:14 Urine, Random Legionella Antigen - Final 12/07/21 04:14 Urine, Random Streptococcus pneumoniae Antigen (M - Final 12/06/21 17:51 Mucosa - Nasopharyngeal Respiratory Panel (PCR) - Final 12/06/21 12:20 Nasal Secretion SARS-CoV-2 & FLU Antigen (Rapid) - Final Radiography Diagnostic Testing: Radiology Impression Chest X-Ray 12/06/21 13:10 IMPRESSION: There has been mild increase in the left pleural effusion with underlying left basilar infiltrate and/or atelectasis. Electronically Signed: Tashi Lipscomb MD at 13:28 EDT , Physical Exam Narrative GENERAL: cooperative HEENT: Atraumatic; normocephalic EYES; Anicteric, Normal Conjunctiva NECK; tracheostomy in place RESPIRATORY: Diminished to auscultation CARDIOVASCULAR: Regular S1 S2, GI: soft, normoactive bowel sounds, : No Renal angle tenderness; EXTREMITIES: No edema, no clubbing, MUSCULOSKELETAL: no muscle wasting NEURO: Awake; no lateralizing signs. SKIN: No Rash PSYCH; Flat affect Assessment & Plan Assessment/Plan (1) Dyspnea: PLAN: Plan Patient is a 66-year-old gentleman with multiple comorbidities admitted with shortness of breath and assessment of congestive heart failure made admitted to a monitored bed for subsequent management 1. Acute on chronic congestive heart failure with preserved ejection fraction ? Admitted to monitored bed managed with diuretics, strict input and output, daily weight fluid restriction as well as supplemental oxygen 2. Recurrent left-sided pleural effusion ? Possibly related to patient congestive heart failure, a requisition was placed by admitting physician for patient to undergo ultrasound-guided thoracocentesis 3. Paroxysmal A. fib ? Rate controlled.Patient is on aspirin for stroke prophylaxis 4. 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 Class III obesity with BMI 42.6 ? Weight loss advised 6. Hypothyroidism - Patient is on levothyroxine home dose continued 7. Hypertension - Blood pressure controlled, home medications continued with dose adjustment as needed 8. Diabetes mellitus type II -patient's oral hypoglycemics held. Placed on long acting insulin, Accu-Cheks a.c. and at bedtime and covered with sliding scale insulin 9. Anemia - Secondary to chronic disorder monitoring H&H and transfuse if patient becomes symptomatic or hemoglobin falls below 7 10. Chronic kidney disease stage III ? Kidney function at baseline 11. Chronic hypoxic respiratory failure ? Secondary to COPD as well as obesity hypoventilation syndrome and his underlying congestive heart failure. Patient is on baseline home oxygen 2 to 4 L 12. DVT prophylaxis ? Bilateral SCDs with plans to remove prophylaxis after his thoracocentesis Charges/Coding Visit Charges Inpatient E&M: 19908 Subs Hosp L2
[2021-12-07] MEDS: dilTIAZem CD 120 MG Capsule PO ×2 (08:17→17:06)
[2021-12-07] MEDS: Lisinopril 5 MG Tablet PO (08:17)
[2021-12-07] MEDS: Furosemide 40 MG/4 ML Vial IV ×2 (08:17→17:06)
[2021-12-07] MEDS: 0.9% Saline Lock 10 ML Syringe IV ×2 (08:17→21:39)
[2021-12-07] MEDS: Metolazone 2.5 MG Tablet PO (08:17)
[2021-12-07] MEDS: Pantoprazole Sodium 20 MG Tablet PO (08:17)
[2021-12-07] MEDS: Budesonide Respules 0.5 MG/2 ML AMPUL.NEB. INHALATION ×2 (08:34→19:00)
[2021-12-07] MEDS: Ceftriaxone 1 GM/50 ML BAG IV (09:19)
--- NOTE | 2021-12-07 11:00 | FLU_PTH ---
PATIENT: ABDIEL CORTEZ LOC: [facility] U#:[id number] AGE/SX: 66/M ROOM: [facility] RE12/06/[address]: Dr. Bridgett Dale MD : 1955 BED: 1 DIS: 12/13/2021 SPEC #: [id number] RECD: 12/07/21 11:21 STATUS: CHELSEA COBIAN #: [id number] MENDEZ: 12/07/21 11:[address]: Himanshu Larose DEPT: CYTOLOGY RECD BY: Edson Lynch ENTERED: 12/07/21 13:03 SP TYPE: Fluid OTHR DR: MD Dr. Chinmay Choudhury MD Tissues: THORACIC FLUID Procedures: Special Stain Group II Surgery Specimen Level IV Cytospin Fluid HEADER OPERATION: Ultrasound-guided thoracentesis PRE-OP DIAGNOSIS: Left pleural effusion TISSUE SUBMITTED: Thoracentesis fluid for cytology DIAGNOSIS CYTOLOGY Thoracentesis fluid for cytology (cytospin and cell block): Negative for malignant cells. AM:ignacio 12/08/2021 CYTOLOGY STUDY Slides are reviewed. CYTOLOGY GROSS Received is 50 ml of yellow cloudy fluid labeled with the patient's name and and designated per the requisition as thoracentesis. Submitted for cytology preparation including cell block. / ignacio 12/07/2021 TC:5 CPT: 72533, 83832
[2021-12-07] MEDS: Lidocaine 2% (20 ml mdv) 20 ML Vial INFILT (11:05)
--- NOTE | 2021-12-07 11:19 | RAD_ITS ---
STUDY: X-RAY CHEST REASON FOR EXAM: Male, 66 years old. Pneumothorax -- immed post thoracentesis TECHNIQUE: AP inspiration and expiration views. COMPARISON: Comparison is made with prior study dated 12/06/2021. FINDINGS: EKG electrodes are seen. A tracheostomy tube is in situ. The patient is status post left thoracentesis. No evidence of pneumothorax. RAD/Chest Insp/Exp 2 View IMPRESSION: Status post left thoracentesis. No evidence of pneumothorax. Electronically Signed: Tashi Lipscomb MD at 11:43 EDT ,
[2021-12-07 11:35] LABS: Cytology, Body Fluid / CSF SEE PATHOLOGY REPORT
--- NOTE | 2021-12-07 12:00 | CASEMGMT ---
RN TALA Face to Face with patient for initial transition planning/care coordination assessment. RN CM introduced self and role at [facility]. Patient lying on bed, alert and oriented. Patient willing to participate in assessment and is able to answer all questions appropriately. Care providers, pharmacy, and demographics verified. Patient wishes to discharge home, denies need for home health at this time. Patient states he has no further needs or concerns at this time. CM to follow for discharge planning needs that may arise. PCP: January Specialists: Idania, Free Lance Model; Arlene stripe matcher; King Segregator Preferred [facility]acy: [facility] Insurance: Auto Secure Prescription Benefit: yes Living Will/HPOA: none LNOK: Living Arrangements: Patient lives with in a single story home with 3 steps to enter the home. Patient states he is independent at home. Transportation: DME/HHC: Patient states he has raised toilet, cane, walker, nebulizer, pulse ox, and home oxygen through [facility] at 2-4lpm via trach with portability. Patient denies previous HHC or SNF. Disposition Plan: Patient to discharge home with family support and follow-up plans in place. Hanna DURHAM, RN, CM
[2021-12-07 12:20] LABS: Bedside Glucose 96 mg/dL (74-106)
[2021-12-07] MEDS: Acetaminophen 325 MG Tablet 650 MG PO (13:00)
[2021-12-07 13:02] LABS: Body Fluid Mononuclear WBC # 0.344 10^3/uL; Body Fluid Mononuclear WBC % 92.8 %; Body Fluid Polynuclear WBC # 0.027 10^3/uL; Body Fluid Polynuclear WBC % 7.2 %; Body Fluid Total Cells Counted 0.438 10^3/ul; White Blood Count/Body Fluid 0.371 10^3/uL
[2021-12-07 13:27] LABS: Glucose, Body Fluid 105 mg/dL (40-70); LDH,Body Fluid 97 Units/l (Not Establ.); Protein, Body Fluid 3.7 g/dL (Not Establ.)
[2021-12-07 13:47] LABS: Auto B Fluid Analyzer BKGD Ct COUNTS W/IN LIMITS (W/IN LIMITS); Lymphocytes 34 %; Macrophages 37 %; Mesothelial Cells 6 %; Monocytes 13 %; Neutrophil (Segs) 8 %; Other Cell Type/BF 2 %
[2021-12-07 13:48] LABS: Appearance/Body Fluid CLEAR; Color/Body Fluid YELLOW; Red Cell Count/Body Fluid 91 /mm3; Source- Body Fluid THORACENTESIS
[2021-12-07 13:49] LABS: Body Fluid QC Type(s) BF1Q
--- NOTE | 2021-12-07 14:28 | CASEMGMT ---
Per notes, pt may need help with trach supplies. During MDR rounds, pt states needs no help with supplies at this time. CM to follow therapy notes and for increased home oxygen need. Juli TAVARES CM
--- NOTE | 2021-12-07 16:22 | CHAPLAIN ---
Type of Pastoral Visit _x__ Initial Visit ___ Follow-up Visit ___ On-call Visit ___ General Patient Visit ___ Spiritual Assessment ___ Family Conference ___ Bereavement ___ Rapid Response ___ Code Blue ___ Other (describe below) Pastoral Care Referral From _x__ Patient ___ Family ___ Nurse ___ Physician ___ Trail[employer] Salesperson ___ Skid Machine Operator ___ Other (describe below) Sacrament/Intervention _x__ Active listening ___ Anointing ___ Synagogue ___ Bereavement ___ Communion _x__ [place] exploration ___ _x__ Life review ___ Prayer ___ Reconciliation ___ Sacrament of Sick _x__ Supportive presence ___ Wedding ___ Other (describe below) Pastoral Comments patient is welcoming and talks about his recent health issues; pt admits to past life and the change in recent years; pt states I've made my peace; pt talks about lakeshia and prayer helping him in these days; pt concern is for his ; pt declines other spiritual care support but expresses thanks for the visit and time given
[2021-12-07 17:05] LABS: Bedside Glucose 123 mg/dL (74-106)
--- NOTE | 2021-12-07 17:10 | US_ITS ---
PROCEDURE: ULTRASOUND GUIDED THORACENTESIS. DATE: 12/07/2021. INDICATION: Male, 66 years old. Left pleural effusion. PHYSICIAN: Tashi Lipscomb M.D. PROCEDURE: The risks, benefits, and alternatives to the procedure were explained to the patient. The specific risks of bleeding, infection, and pneumothorax requiring chest tube insertion were discussed and accepted. Written informed consent was obtained. Ultrasonographic evaluation of the left lower pleural space was carried out. An adequate pocket was identified. The patient was placed in the sitting, upright position. The overlying skin was prepped and draped in sterile fashion. 1% lidocaine was administered subcutaneously for local anesthesia. Under ultrasound guidance, a 5 Nigerien thoracentesis needle/catheter system was advanced into the left posterior lower pleural fluid collection. Approximately 1500 mL of VITO-colored fluid was drained. The catheter was removed, and a sterile dressing was applied. A specimen was collected and sent to the laboratory for analysis, as requested by the referring clinician. The patient tolerated the procedure well. A chest x-ray was ordered. US/Thoracentesis W US IMPRESSION: Ultrasound-guided left thoracentesis. Electronically Signed: Tashi Lipscomb MD at 11:44 EDT ,
[2021-12-07] MEDS: Insulin Glargine-YFGN 100 UNIT/ML Pen 36 UNIT SC (21:30)
[2021-12-07] MEDS: MELATONIN 10 MG TABLET 20 MG PO (21:34)
[2021-12-07] MEDS: Atorvastatin Calcium 40 MG Tablet PO (21:34)
[2021-12-07 21:55] LABS: Bedside Glucose 138 mg/dL (74-106)
[2021-12-08] VITALS (17 sets, daily range): BP systolic 107–127; BP diastolic 69–89; PULSE 78–105; RESP 16–24; TEMP 36.3–36.9; O2SAT 94–100
[2021-12-08] MEDS: Ipratropium/Albuterol Sulfate 3 ML AMPUL.NEB INHALATION ×3 (00:30→19:13)
[2021-12-08] MEDS: Levothyroxine 150 MCG Tablet PO (06:18)
[2021-12-08] MEDS: Budesonide Respules 0.5 MG/2 ML AMPUL.NEB. INHALATION ×2 (06:36→19:13)
--- NOTE | 2021-12-08 08:11 | PN.HOSP_ITS ---
Subjective Subjective Patient underwent ultrasound-guided thoracocentesis the day prior with 1.5 L of sigifredo-colored fluid taken off. Fluid analysis consistent with transudate. Patient seen admit to some improvement in overall condition. Cultures obtained from patient trach site positive for Proteus mirabilis Objective Data Objective Data Vital Signs: Vital Signs Temp Pulse Resp BP Pulse Ox O2 Del Method O2 Flow Rate 97.4 F L 83 18 110/69 96 Trach Collar 4 12/08/21 03:20 12/08/21 07:05 12/08/21 03:20 12/08/21 03:20 12/08/21 03:20 12/08/21 03:20 12/08/21 03:20 FiO2 30 12/08/21 03:20 Oxygen Flow Rate (L/min) [4] 8 Oxygen Flow Rate (L/min) [3] 8 Oxygen Flow Rate (L/min) [2] 8 Oxygen Flow Rate (L/min) [1 ( 8 Initial Baseline)] Oxygen Flow Rate (L/min) 4 Oxygen Delivery Method [4] Nasal Cannula Oxygen Delivery Method [3] Trach Collar Oxygen Delivery Method [2] Trach Collar Oxygen Delivery Method [1 ( Trach Collar Initial Baseline)] Oxygen Delivery Method Trach Collar Weight: 136.8 kg Body Mass Index (BMI) 41.5 Intake & Output: Intake and Output for Last 24 Hours 12/06/21 12/07/21 12/08/21 23:59 23:59 23:59 Intake Total 485 / 485 1025 / 1025 120 / 120 Output Total 1900 / 3950 2175 / 2175 Balance 485 / 485 -875 / -2925 -2055 / -2055 Lab / Micro Data Result Diagrams: 12/07/21 05:52 12/07/21 05:52 Labs: Laboratory Results - last 24 hr 12/07/21 11:02: Fluid Glucose 105 H, Fluid Total Protein 3.7, Fluid LDH 97 12/07/21 11:02: Fluid Source THORACENTESIS, Fluid Color YELLOW, Fluid Appearance CLEAR, Fluid WBC 0.371, Fluid RBC 91, Fluid Tot Cell Count 0.438, Fld Polynuclear WBCs # 0.027, Fld Polynuclear WBCs % 7.2, Fluid Mononuclear WBCs 0.344, Fld Mononuclear WBCs % 92.8, Fluid Neutrophils 8, Fluid Lymphocytes 34, Fluid Monocytes 13, Fluid Macrophages 37, Fld Mesothelial Cells 6, Fluid Other Cells 2, Fl Pathologist Comment May follow, Fluid Comment 2 SEE COMMENT 12/07/21 11:50: POC Glucose 96 12/07/21 16:43: POC Glucose 123 H 12/07/21 21:29: POC Glucose 138 H Micro: Microbiology 12/06/21 20:57 Sputum, Induced/Lukens Gram Stain - Final 12/06/21 20:57 Sputum, Induced/Lukens Respiratory Culture - Final Proteus mirabilis 12/07/21 11:02 Fluid - Thoracentesis Fluid Gram Stain - Final 12/07/21 04:14 Urine, Random Legionella Antigen - Final 12/07/21 04:14 Urine, Random Streptococcus pneumoniae Antigen (M - Final 12/06/21 17:51 Mucosa - Nasopharyngeal Respiratory Panel (PCR) - Final 12/06/21 12:20 Nasal Secretion SARS-CoV-2 & FLU Antigen (Rapid) - Final Radiography Diagnostic Testing: Radiology Impression Chest X-Ray 12/07/21 11:19 IMPRESSION: Status post left thoracentesis. No evidence of pneumothorax. Electronically Signed: Tashi Lipscomb MD at 11:43 EDT , Thoracentesis Ultrasound 12/07/21 17:10 IMPRESSION: Ultrasound-guided left thoracentesis. Electronically Signed: Tashi Lipscomb MD at 11:44 EDT , Physical Exam Narrative GENERAL: cooperative HEENT: Atraumatic; normocephalic EYES; Anicteric, Normal Conjunctiva NECK; tracheostomy in place RESPIRATORY: Diminished to auscultation CARDIOVASCULAR: Regular S1 S2, GI: soft, normoactive bowel sounds, : No Renal angle tenderness; EXTREMITIES: No edema, no clubbing, MUSCULOSKELETAL: no muscle wasting NEURO: Awake; no lateralizing signs. SKIN: No Rash PSYCH; Flat affect Assessment & Plan Assessment/Plan (1) Dyspnea: PLAN: Plan Patient is a 66-year-old gentleman with multiple comorbidities admitted with shortness of breath and assessment of congestive heart failure made admitted to a monitored bed for subsequent management 1. Acute on chronic congestive heart failure with preserved ejection fraction ? Admitted to monitored bed managed with diuretics, strict input and output, daily weight fluid restriction as well as supplemental oxygen 2. Recurrent left-sided pleural effusion ? Possibly related to patient congestive heart failure, a requisition was placed by admitting physician for patient to undergo ultrasound-guided thoracocentesis 3. Gram-negative pneumonia with Proteus mirabilis ? Patient is on azithromycin and Rocephin azithromycin discontinued 4. 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 Class III obesity with BMI 42.6 ? Weight loss advised 6. Hypothyroidism - Patient is on levothyroxine home dose continued 7. Hypertension - Blood pressure controlled, home medications continued with dose adjustment as needed 8. Diabetes mellitus type II -patient's oral hypoglycemics held. Placed on long acting insulin, Accu-Cheks a.c. and at bedtime and covered with sliding scale insulin 9. Anemia - Secondary to chronic disorder monitoring H&H and transfuse if patient becomes symptomatic or hemoglobin falls below 7 10. Chronic kidney disease stage III ? Kidney function at baseline 11. Chronic hypoxic respiratory failure ? Secondary to COPD as well as obesity hypoventilation syndrome and his underlying congestive heart failure. Patient is on baseline home oxygen 2 to 4 L 12. Paroxysmal A. fib ? Rate controlled.Patient is on aspirin for stroke prophylaxis 13. Physical deconditioning - Requested for PT OT eval and protective services social worker to assist with discharge planning 14.DVT prophylaxis ? Bilateral SCDs with plans to remove prophylaxis after his thoracocentesis Charges/Coding Visit Charges Inpatient E&M: 89090 Subs Hosp L2
[2021-12-08] MEDS: dilTIAZem CD 120 MG Capsule PO ×2 (08:19→19:02)
[2021-12-08 08:45] LABS: Bedside Glucose 92 mg/dL (74-106)
[2021-12-08] MEDS: Pantoprazole Sodium 20 MG Tablet PO (09:28)
[2021-12-08] MEDS: Lisinopril 5 MG Tablet PO (09:28)
[2021-12-08] MEDS: Ceftriaxone 1 GM/50 ML BAG IV (09:28)
[2021-12-08] MEDS: Furosemide 40 MG/4 ML Vial IV ×2 (09:28→19:01)
[2021-12-08] MEDS: 0.9% Saline Lock 10 ML Syringe IV ×2 (09:31→19:01)
[2021-12-08 10:01] LABS: Pathologist Comment/Body Fluid Reviewed
[2021-12-08 12:00] LABS: Bedside Glucose 133 mg/dL (74-106)
--- NOTE | 2021-12-08 14:05 | CASEMGMT ---
Patient does not have a Healthcare Power of Ticket Puller or Healthcare Living Will. SW met with patient last visit and he wanted copies of the documents. SW did tell patient if he would like to complete documents SW is available. Alessandra FLYNN
[2021-12-08] MEDS: Albuterol 2.5 MG/3 ML VIAL.NEB. INHALATION (14:56)
[2021-12-08 17:00] LABS: Bedside Glucose 119 mg/dL (74-106)
--- NOTE | 2021-12-08 20:00 | NURSING ---
resp austin did trach care
[2021-12-08] MEDS: Insulin Glargine-YFGN 100 UNIT/ML Pen 36 UNIT SC (21:13)
[2021-12-08] MEDS: Atorvastatin Calcium 40 MG Tablet PO (21:14)
[2021-12-08] MEDS: MELATONIN 10 MG TABLET 20 MG PO (21:14)
[2021-12-08 21:35] LABS: Bedside Glucose 130 mg/dL (74-106)
[2021-12-09] VITALS (14 sets, daily range): BP systolic 96–127; BP diastolic 52–74; PULSE 66–91; RESP 16–28; TEMP 36.4–36.8; O2SAT 94–100
[2021-12-09 05:58] LABS: Absolute Lymphocyte Count 0.76 X10^3/uL (0.83-4.51); Absolute Neutrophil Count 3.3 X10^3/uL (2.0-7.7); Basophil# 0.03 X10^3/uL; Basophil% 0.6 % (0-1); Eosinophil# 0.48 X10^3/uL; Hematocrit 28.1 % (40-54); Hemoglobin 9.3 g/dL (13.0-16.5); Lymphocyte # 0.76 X10^3/ul (0.83-4.51); Lymphocyte % 14.3 % (19-41); Mean Corp Hgb Conc 33.1 g/dL (32-36); Mean Corpuscular Hgb 29.4 pg (27.0-32.0); Mean Corpuscular Volume 88.9 fL (80-94); Monocyte# 0.69 X10^3/uL; NRBC Flagged by Analyzer 0 % (0-5); Neutrophil # 3.33 X10^3/uL (2.7-7.7); Neutrophil % 62.7 % (47-70); Platelet Count 270 K/mm3 (150-450); RBC Distribution Width CV 12.6 % (11.6-14.6); RBC Distribution Width SD 41.2 fl (35.1-43.9); Red Blood Count 3.16 M/mm3 (4.6-6.2); White Blood Count 5.3 K/mm3 (4.4-11.0)
[2021-12-09] MEDS: Levothyroxine 150 MCG Tablet PO (06:14)
[2021-12-09 06:35] LABS: Anion Gap 5 (5-15); BUN 39 mg/dL (7-18); BUN/Creat Ratio 22.9 RATIO (10-20); Chloride 98 mmol/L (98-107); EST Glomerular Filtration Rate 43 mL/min (>60); Est Glom Filt Rate - Afr Amer 52 mL/min (>60); Estimated Creatinine Clearance 45.52 ml/min; Glucose 110 mg/dL (74-106); Magnesium 2.1 mg/dL (1.6-2.6); Phosphorus 4.8 mg/dL (2.5-4.9); Potassium 3.9 mmol/L (3.5-5.1); Sodium Level 136 mmol/L (136-145)
[2021-12-09] MEDS: Budesonide Respules 0.5 MG/2 ML AMPUL.NEB. INHALATION ×2 (07:08→18:51)
[2021-12-09] MEDS: Ipratropium/Albuterol Sulfate 3 ML AMPUL.NEB INHALATION ×3 (07:08→18:51)
--- NOTE | 2021-12-09 07:41 | PN.HOSP_ITS ---
Subjective Subjective Patient was seen and assessed by speech therapy, recommended for patient to be evaluated by GI for dysphagia. Consult placed to Dr. Singh Objective Data Objective Data Vital Signs: Vital Signs Temp Pulse Resp BP Pulse Ox O2 Del Method O2 Flow Rate 97.6 F L 79 18 107/52 L 98 Room Air 4 12/09/21 03:20 12/09/21 03:52 12/09/21 03:20 12/09/21 03:20 12/09/21 03:20 12/09/21 03:20 12/08/21 03:20 FiO2 30 12/08/21 21:20 Oxygen Flow Rate (L/min) [4] 8 Oxygen Flow Rate (L/min) [3] 8 Oxygen Flow Rate (L/min) [2] 8 Oxygen Flow Rate (L/min) [1 ( 8 Initial Baseline)] Oxygen Flow Rate (L/min) 4 Oxygen Delivery Method [4] Nasal Cannula Oxygen Delivery Method [3] Trach Collar Oxygen Delivery Method [2] Trach Collar Oxygen Delivery Method [1 ( Trach Collar Initial Baseline)] Oxygen Delivery Method Room Air Weight: 137.6 kg Body Mass Index (BMI) 41.5 Intake & Output: Intake and Output for Last 24 Hours 12/07/21 12/08/21 12/09/21 23:59 23:59 23:59 Intake Total 1025 / 1025 995 / 995 150 / 150 Output Total 1900 / 3950 2175 / 2175 Balance -875 / -2925 -1180 / -1180 150 / 150 Lab / Micro Data Result Diagrams: 12/09/21 04:36 12/09/21 04:36 Labs: Laboratory Results - last 24 hr 12/07/21 11:02: Fl Pathologist Comment Reviewed 12/07/21 11:02: Miscellaneous Cytology SEE PATHOLOGY REPORT 12/08/21 08:08: POC Glucose 92 12/08/21 11:39: POC Glucose 133 H 12/08/21 16:39: POC Glucose 119 H 12/08/21 21:11: POC Glucose 130 H 12/09/21 04:36: WBC 5.3, RBC 3.16 L, Hgb 9.3 L, Hct 28.1 L, MCV 88.9, MCH 29.4, MCHC 33.1, RDW Std Deviation 41.2, RDW Coeff of Alisson 12.6, Plt Count 270, MPV 10.0, Immature Gran % (Auto) 0.400, Neut % (Auto) 62.7, Lymph % (Auto) 14.3 L, [place] % (Auto) 13.0 H, Eos % (Auto) 9.0 H, Baso % (Auto) 0.6, Absolute Neuts (auto) 3.3, Absolute Lymphs (auto) 0.76 L, Nucleated RBC % 0 12/09/21 04:36: Sodium 136, Potassium 3.9, Chloride 98, Carbon Dioxide 33.0 H, Anion Gap 5, BUN 39 H, Creatinine 1.70 H, Estim Creat Clear Calc 45.52, Est GFR (MDRD) Af Amer 52 L, Est GFR (MDRD) Non-Af 43 L, BUN/Creatinine Ratio 22.9 H, Glucose 110 H, Calcium 8.0 L, Phosphorus 4.8, Magnesium 2.1 Micro: Microbiology 12/07/21 11:02 Fluid - Thoracentesis Fluid Gram Stain - Final 12/07/21 11:02 Fluid - Thoracentesis Fluid Body Fluid Culture - Preliminary No growth-Final to follow 12/06/21 20:57 Sputum, Induced/Lukens Gram Stain - Final 12/06/21 20:57 Sputum, Induced/Lukens Respiratory Culture - Final Proteus mirabilis 12/07/21 04:14 Urine, Random Legionella Antigen - Final 12/07/21 04:14 Urine, Random Streptococcus pneumoniae Antigen (M - Final 12/06/21 17:51 Mucosa - Nasopharyngeal Respiratory Panel (PCR) - Final 12/06/21 12:20 Nasal Secretion SARS-CoV-2 & FLU Antigen (Rapid) - Final Physical Exam Narrative GENERAL: cooperative HEENT: Atraumatic; normocephalic EYES; Anicteric, Normal Conjunctiva NECK; tracheostomy in place RESPIRATORY: Diminished to auscultation CARDIOVASCULAR: Regular S1 S2, GI: soft, normoactive bowel sounds, : No Renal angle tenderness; EXTREMITIES: No edema, no clubbing, MUSCULOSKELETAL: no muscle wasting NEURO: Awake; no lateralizing signs. SKIN: No Rash PSYCH; Flat affect Assessment & Plan Assessment/Plan (1) Dyspnea: PLAN: Plan Patient is a 66-year-old gentleman with multiple comorbidities admitted with shortness of breath and assessment of congestive heart failure made admitted to a monitored bed for subsequent management 1. Acute on chronic congestive heart failure with preserved ejection fraction ? Admitted to monitored bed managed with diuretics, strict input and output, daily weight fluid restriction as well as supplemental oxygen 2. Recurrent left-sided pleural effusion ? Possibly related to patient congestive heart failure, a requisition was placed by admitting physician for patient to undergo ultrasound-guided thoracocentesis 3. Gram-negative pneumonia with Proteus mirabilis ? Patient is on azithromycin and Rocephin azithromycin discontinued 4. Dysphagia ? Consult has been placed to GI. Patient dysphagia may be related to treatment of his laryngeal CA 5. History of laryngeal carcinoma ? Status post laryngectomy with subsequent tracheostomy in 2007, patient has since remained in remission 6. Hypothyroidism - Patient is on levothyroxine home dose continued 7. Hypertension - Blood pressure controlled, home medications continued with dose adjustment as needed 8. Diabetes mellitus type II -patient's oral hypoglycemics held. Placed on long acting insulin, Accu-Cheks a.c. and at bedtime and covered with sliding scale insulin 9. Anemia - Secondary to chronic disorder monitoring H&H and transfuse if patient becomes symptomatic or hemoglobin falls below 7 10. Chronic kidney disease stage III ? Kidney function at baseline 11. Chronic hypoxic respiratory failure ? Secondary to COPD as well as obesity hypoventilation syndrome and his underlying congestive heart failure. Patient is on baseline home oxygen 2 to 4 L 12. Paroxysmal A. fib ? Rate controlled.Patient is on aspirin for stroke prophylaxis 13. Physical deconditioning - Requested for PT OT eval and child protective services social worker to assist with discharge planning 14. Class III obesity with BMI 42.6 ? Weight loss advised 15. DVT prophylaxis ? Bilateral SCDs with plans to remove prophylaxis after his thoracocentesis Charges/Coding Visit Charges Inpatient E&M: 00657 Subs Hosp L2
[2021-12-09] MEDS: Furosemide 40 MG/4 ML Vial IV ×2 (09:17→18:01)
[2021-12-09] MEDS: guaiFENesin 10 ML UDC (200MG/10ML) 20 ML PO (09:17)
[2021-12-09] MEDS: 0.9% Saline Lock 10 ML Syringe IV ×3 (09:17→18:05)
[2021-12-09] MEDS: Pantoprazole Sodium 20 MG Tablet PO (09:17)
[2021-12-09] MEDS: Lisinopril 5 MG Tablet PO (09:18)
[2021-12-09] MEDS: dilTIAZem CD 120 MG Capsule PO ×2 (09:18→18:01)
[2021-12-09] MEDS: Metolazone 2.5 MG Tablet PO (09:18)
[2021-12-09] MEDS: Ceftriaxone 1 GM/50 ML BAG IV (09:19)
[2021-12-09] MEDS: Acetaminophen 325 MG Tablet 650 MG PO (09:19)
[2021-12-09 09:36] LABS: Bedside Glucose 134 mg/dL (74-106)
[2021-12-09] MEDS: guaiFENesin 1,200 MG Tablet 1200 MG PO ×2 (10:15→22:24)
--- NOTE | 2021-12-09 10:19 | CASEMGMT ---
Pt has been up in room and declining therapy. Green sheet left on chart for increased home oxygen need. Pt to be tested on 2L at rest and 2L w/ exertion. Juli TAVARES CM
[2021-12-09] MEDS: Insulin Lispro 100 UNIT/ML INSULN.PEN 10 UNIT SC (12:31)
[2021-12-09] MEDS: Insulin Lispro 100 UNIT/ML INSULN.PEN SC (12:31)
[2021-12-09 12:46] LABS: Bedside Glucose 156 mg/dL (74-106)
[2021-12-09] MEDS: Albuterol 2.5 MG/3 ML VIAL.NEB. INHALATION (15:46)
[2021-12-09 18:25] LABS: Bedside Glucose 165 mg/dL (74-106)
[2021-12-09] MEDS: MELATONIN 10 MG TABLET 20 MG PO (22:24)
[2021-12-09] MEDS: Atorvastatin Calcium 40 MG Tablet PO (22:25)
[2021-12-09] MEDS: Insulin Glargine-YFGN 100 UNIT/ML Pen 36 UNIT SC (22:25)
[2021-12-09 22:51] LABS: Bedside Glucose 119 mg/dL (74-106)
[2021-12-10] VITALS (11 sets, daily range): BP systolic 104–124; BP diastolic 65–71; PULSE 79–90; RESP 16–18; TEMP 36.2–36.9; O2SAT 97–100
[2021-12-10] MEDS: Levothyroxine 150 MCG Tablet PO (05:12)
[2021-12-10 05:56] LABS: Absolute Lymphocyte Count 0.68 X10^3/uL (0.83-4.51); Absolute Neutrophil Count 3.4 X10^3/uL (2.0-7.7); Basophil# 0.03 X10^3/uL; Basophil% 0.6 % (0-1); Eosinophil# 0.44 X10^3/uL; Eosinophils% 8.5 % (0-5); Hematocrit 29.6 % (40-54); Hemoglobin 9.6 g/dL (13.0-16.5); Lymphocyte # 0.68 X10^3/ul (0.83-4.51); Lymphocyte % 13.1 % (19-41); Mean Corp Hgb Conc 32.4 g/dL (32-36); Mean Corpuscular Hgb 28.7 pg (27.0-32.0); Mean Corpuscular Volume 88.6 fL (80-94); Mean Platelet Vol. 9.7 fl (6.2-12.0); Monocyte# 0.68 X10^3/uL; Monocyte% 13.1 % (0-10); NRBC Flagged by Analyzer 0 % (0-5); Neutrophil # 3.35 X10^3/uL (2.7-7.7); Neutrophil % 64.3 % (47-70); Platelet Count 300 K/mm3 (150-450); RBC Distribution Width CV 12.6 % (11.6-14.6); Red Blood Count 3.34 M/mm3 (4.6-6.2); White Blood Count 5.2 K/mm3 (4.4-11.0)
[2021-12-10 06:17] LABS: Anion Gap 5 (5-15); BUN 42 mg/dL (7-18); BUN/Creat Ratio 25.8 RATIO (10-20); Chloride 100 mmol/L (98-107); Creatinine, Serum 1.63 mg/dL (0.70-1.30); EST Glomerular Filtration Rate 45 mL/min (>60); Est Glom Filt Rate - Afr Amer 55 mL/min (>60); Estimated Creatinine Clearance 47.48 ml/min; Glucose 109 mg/dL (74-106); Potassium 4.1 mmol/L (3.5-5.1); Sodium Level 136 mmol/L (136-145)
[2021-12-10] MEDS: Budesonide Respules 0.5 MG/2 ML AMPUL.NEB. INHALATION ×2 (06:49→19:57)
[2021-12-10] MEDS: Ipratropium/Albuterol Sulfate 3 ML AMPUL.NEB INHALATION ×3 (06:49→19:57)
[2021-12-10 07:00] LABS: Bedside Glucose 118 mg/dL (74-106)
[2021-12-10] MEDS: Pantoprazole Sodium 20 MG Tablet PO (09:56)
[2021-12-10] MEDS: guaiFENesin 1,200 MG Tablet 1200 MG PO ×2 (09:56→22:00)
[2021-12-10] MEDS: dilTIAZem CD 120 MG Capsule PO ×2 (09:56→17:11)
[2021-12-10] MEDS: Furosemide 40 MG/4 ML Vial IV ×2 (09:56→17:11)
[2021-12-10] MEDS: Lisinopril 5 MG Tablet PO (09:56)
[2021-12-10] MEDS: 0.9% Saline Lock 10 ML Syringe IV ×2 (10:07→21:56)
[2021-12-10] MEDS: Ceftriaxone 1 GM/50 ML BAG IV (10:07)
--- NOTE | 2021-12-10 12:12 | PN.HOSP_ITS ---
Subjective Subjective Patient seen and examined. He complains of increased sputum production from his trach. He however says his breathing is much better than when he came in. Review of systems otherwise negative. Objective Data Objective Data Vital Signs: Vital Signs Temp Pulse Resp BP Pulse Ox O2 Del Method O2 Flow Rate 97.1 F L 88 18 104/66 100 Trach Collar 8 12/10/21 09:52 12/10/21 09:52 12/10/21 09:52 12/10/21 09:52 12/10/21 09:52 12/10/21 09:59 12/09/21 18:52 FiO2 30 12/10/21 09:59 Oxygen Flow Rate (L/min) [4] 8 Oxygen Flow Rate (L/min) [3] 8 Oxygen Flow Rate (L/min) [2] 8 Oxygen Flow Rate (L/min) [1 ( 8 Initial Baseline)] Oxygen Flow Rate (L/min) 8 Oxygen Delivery Method [4] Nasal Cannula Oxygen Delivery Method [3] Trach Collar Oxygen Delivery Method [2] Trach Collar Oxygen Delivery Method [1 ( Trach Collar Initial Baseline)] Oxygen Delivery Method Trach Collar Weight: 303 lb 5.697 oz Body Mass Index (BMI) 41.5 Intake & Output: Intake and Output for Last 24 Hours 12/08/21 12/09/21 12/10/21 23:59 23:59 23:59 Intake Total 995 / 995 1585 / 1585 Output Total 2175 / 2175 Balance -1180 / -1180 1585 / 1585 Lab / Micro Data Result Diagrams: 12/10/21 05:35 12/10/21 05:35 Labs: Laboratory Results - last 24 hr 12/09/21 12:24: POC Glucose 156 H 12/09/21 18:03: POC Glucose 165 H 12/09/21 22:22: POC Glucose 119 H 12/10/21 05:35: WBC 5.2, RBC 3.34 L, Hgb 9.6 L, Hct 29.6 L, MCV 88.6, MCH 28.7, MCHC 32.4, RDW Std Deviation 41.0, RDW Coeff of Alisson 12.6, Plt Count 300, MPV 9.7, Immature Gran % (Auto) 0.400, Neut % (Auto) 64.3, Lymph % (Auto) 13.1 L, [place] % (Auto) 13.1 H, Eos % (Auto) 8.5 H, Baso % (Auto) 0.6, Absolute Neuts (auto) 3.4, Absolute Lymphs (auto) 0.68 L, Nucleated RBC % 0 12/10/21 05:35: Sodium 136, Potassium 4.1, Chloride 100, Carbon Dioxide 31.0, Anion Gap 5, BUN 42 H, Creatinine 1.63 H, Estim Creat Clear Calc 47.48, Est GFR (MDRD) Af Amer 55 L, Est GFR (MDRD) Non-Af 45 L, BUN/Creatinine Ratio 25.8 H, Glucose 109 H, Calcium 8.0 L 12/10/21 06:42: POC Glucose 118 H Micro: Microbiology 12/07/21 11:02 Fluid - Thoracentesis Fluid Gram Stain - Final 12/07/21 11:02 Fluid - Thoracentesis Fluid Body Fluid Culture - Final Culture exhibits no growth. 12/07/21 11:02 Fluid - Thoracentesis Fluid Anaerobic Culture - Preliminary No growth in 48 hours. 12/06/21 20:57 Sputum, Induced/Lukens Gram Stain - Final 12/06/21 20:57 Sputum, Induced/Lukens Respiratory Culture - Final Proteus mirabilis 12/07/21 04:14 Urine, Random Legionella Antigen - Final 12/07/21 04:14 Urine, Random Streptococcus pneumoniae Antigen (M - Final 12/06/21 17:51 Mucosa - Nasopharyngeal Respiratory Panel (PCR) - Final 12/06/21 12:20 Nasal Secretion SARS-CoV-2 & FLU Antigen (Rapid) - Final Physical Exam Const alert, oriented x3 and no apparent distress HEENT head/scalp atraumatic, moist oral mucous membranes and oropharynx normal HEENT Narrative: tracheostomy in place Head and Scalp: normocephalic Mouth: oral and palatal mucosa normal Eyes PERRL and EOMs intact bilaterally Neck no lymphadenopathy, supple and no JVD Resp Resp Narrative: diminished breath sounds bibasally, no wheezes or crackles. On oxygen via tracheostomy Cardio regular rate, regular rhythm, S1 normal heart sound, S2 normal heart sound and no murmurs GI normal to inspection, nondistended, normoactive bowel sounds, soft to palpation, non-tender and non-distended Extremity normal to inspection, full ROM and no clubbing, cyanosis or edema Neuro oriented x3, CN's II-XII intact bilaterally, moves all extremities and no focal motor deficits Sensorium / Orientation: awake and alert Motor Exam: strength 5/5 throughout Psych affect normal Assessment & Plan Assessment/Plan (1) Dyspnea: (2) Pleural effusion, left: PLAN: Plan Acute on chronic HFpEF with recurrent pleural effusion * S/p left-sided thoracentesis. * Being diuresed with IV lasix and metolazone. Monitor intake and output. Fluid restriction to 1500 cc daily. * Fluid analysis showed that it was a transudate * #Recurrent left-sided pleural effusion: As above #Gram-negative community-acquired pneumonia: Sputum culture with Proteus mirabilis. Completed a course of IV azithromycin and Rocephin #Dysphagia: Thought to be related to his laryngeal cancer. GI consulted. Await recs. #History of laryngeal carcinoma s/p tracheostomy: Stable #Hypothyroidism: On Synthroid #Hypertension: BP controlled. Continue current home meds. #Type 2 diabetes mellitus: On long-acting insulin. Insulin sliding scale. Accu-Cheks ACH S. All meds on hold #Chronic anemia: Stable. hb is 9.6 #Chronic hypoxic respiratory failure due to COPD and obesity hypoventilation sy ndrome: On baseline 2 to 4 L of oxygen #Paroxysmal A. fib: Rate controlled. On cardizem. On aspirin for stroke prophylaxis #Debility due to heart failure and recurrent pleural effusion: PT OT on board. DVT prophylaxis: SCDs. Charges/Coding Visit Charges Inpatient E&M: 90681 Subs Hosp L2
[2021-12-10 12:25] LABS: Bedside Glucose 129 mg/dL (74-106)
[2021-12-10 15:56] LABS: Amylase Body Fluid 67 U/L (.); pH, Body Fluid 11254 7.5 (Not Estab.)
--- NOTE | 2021-12-10 17:04 | PCM.CONS.GEN ---
Assessment & Plan Assessment/Plan (1) Dysphagia: PLAN: Patient has undergone an upper endoscopy in the past and I do not know if there was any stenosis of the cricopharyngeus secondary to his previous tracheostomy. I cannot tell from the report if there is any signs of eosinophilic esophagitis, hiatal hernia, esophageal web or esophageal dysmotility. He should undergo an upper endoscopy to evaluate his upper GI tract. He was explained alternatives, risk, benefits including outstanding bleeding, infection, sepsis, perforation, need for Armani to . He will have an ASA of 3. HPI Consult Data Date of Consult: 12/10/21 HPI Narrative Reason for Consultation: Dysphagia HPI Narrative: ABDIEL CORTEZ, is a 66 M who presents with worsening shortness of breath. He has a past medical history of chronic anemia, paroxysmal atrial fibrillation, obesity, diabetes, CAD, depression, history of laryngeal cancer status post total laryngectomy, CKD stage III, COPD on chronic oxygen via tracheostomy on 2 to 4 L from nasal cannula. I was consulted to see him for esophageal dysphagia. ?Patient reports having difficulty swallowing been going on for 1 year . Has noticed this with foods and pills. Patient reports pureed foods are better. Denies heartburn, regurgitation or indigestion.? Reports coughing but this is not new. The patient states that this has affected his appetite he does not eat as much because worried of choking.? He does not get hungry. There has been some nausea he states d/t unable to gag anything up, no vomiting. Denies weight loss, fever or chills. ? [facility] Medical History (HFpEF) heart failure with preserved ejection fraction Acute hypercapnic respiratory failure Ambulates with cane Anxiety Atherosclerosis of coronary artery of [place] heart without angina pectoris Back pain Benign neoplasm of colon Cholelithiasis Chronic diastolic (congestive) heart failure Chronic renal failure, stage 3 (moderate) COPD (chronic obstructive pulmonary disease) COPD with acute exacerbation Diabetes mellitus, type II Diverticulosis of colon (without mention of hemorrhage) Easy bruising Edema Emphysema, unspecified Esophageal dysmotility Essential hypertension Excessive bleeding Former smoker Gastric reflux Gastroenteritis Gout Hiatal hernia History of colon polyps History of renal disease History of steroid therapy History of stress test Hyperlipidemia Hypothyroidism Hypoxemia Injury of back Injury of head and neck Insomnia Kidney failure Laryngeal cancer Leg cramps Malignant neoplasm of head, neck and face Migraine headache Morbid obesity Morbid obesity Normal stress echocardiogram Obesity On home oxygen therapy Pleural effusion, left Polyneuropathy due to type 2 diabetes mellitus Shortness of breath Shortness of breath on exertion Thyroid disease Type 2 diabetes mellitus without complication Type 2 diabetes with stage 3 chronic kidney disease GFR 30-59 Walker as ambulation aid Wears glasses Home Medications levothyroxine 150 mcg tablet 150 mcg PO DAILY hypothyroidism 06/04/14 [History Last Taken 12/05/21] atorvastatin 40 mg tablet 40 mg PO DAILY@1700 cholesterol 04/12/17 [History Last Taken 12/05/21] ipratropium 0.5 mg-albuterol 3 mg (2.5 mg base)/3 mL nebulization soln 3 ml inhalation Q6H sob 04/12/17 [History Last Taken 12/06/21] flash glucose sensor (FreeStyle Zayra 2 Sensor kit) #2 ea 05/17/21 [Rx Last Taken Unknown] diltiazem HCl 120 mg capsule,extended release 24 hr 120 mg PO BIDCM #60 caps 10/28/21 [Rx Last Taken 1 Week Ago ~11/29/21] insulin detemir U-100 100 unit/mL (3 mL) subcutaneous pen (Levemir FlexTouch U-100 Insulin) 25 unit subcut BID DIABETES 11/07/21 [History Last Taken 12/05/21] lisinopril 5 mg tablet 5 mg PO DAILY BLOOD PRESSURE 11/07/21 [History Last Taken 12/05/21] metolazone 2.5 mg tablet 2.5 mg PO MOWEFR EDEMA 11/07/21 [History Last Taken 12/05/21] Vitamin B-12 1 tab PO/SL DAILY SUPPLEMENT 12/06/21 [History Last Taken 12/05/21] acetaminophen 325 mg tablet 650 mg PO DAILY PAIN 12/06/21 [History Last Taken 12/05/21] budesonide 0.5 mg/2 mL suspension for nebulization (Pulmicort) 0.5 mg inhalation BID sob 12/06/21 [History Last Taken Unknown] dulaglutide 4.5 mg/0.5 mL subcutaneous pen injector (Trulicity) 4.5 mg subcut FR DIABETES 12/06/21 [History Last Taken 12/02/21] furosemide 40 mg tablet 40 mg PO 0900,1700 EDEMA 12/06/21 [History Last Taken 12/05/21] guaifenesin 600 mg tablet, extended release 12 hr (Mucinex) 600 mg PO DAILY PRN Congestion 12/06/21 [History Last Taken 12/05/21] melatonin 10 mg tablet 20 mg PO QHS SLEEP 12/06/21 [History Last Taken Unknown] metformin 500 mg tablet,extended release 24 hr 500 mg PO 0900,1700 DIABETES 12/06/21 [History Last Taken 12/05/21] omeprazole 20 mg capsule,delayed release 20 mg PO DAILY GERD 12/06/21 [History Last Taken 12/05/21] Allergy/AdvReac Type Severity Reaction Status Date / Time egg [eggs] AdvReac Vomiting Verified 12/06/21 11:51 Family History Mother Diabetes Hypertension Kidney disease Heart failure Father CVA (cerebral vascular accident) Hypertension Heart disease ischemic Brother Diabetes Surgical History History of cardiac catheterization History of exploratory laparotomy History of laryngectomy (2007) History of thyroidectomy Hx of colonoscopy Presence of tracheostomy Social History Smoking Status: Former smoker Smokeless tobacco user: snuff how long ago did patient quit smokin years ago alcohol intake: never substance use type: does not use caffeine: Yes what type of physical activity do you participate in: none frequency: does not exercise ROS ROS Narrative Admission Review of Systems: CONSTITUTIONAL: No weight loss, fever, chills, + weakness or fatigue. HEENT: Eyes: No visual loss, blurred vision, double vision or yellow sclerae. Ears, Nose, Throat: No hearing loss, sneezing, congestion, runny nose or sore throat. SKIN: No rash or itching, lesions, wounds. CARDIOVASCULAR: + Edema, orthopnea, no chest pain, chest pressure or chest discomfort, palpitations, syncopal events. RESPIRATORY: + shortness of breath, occasional cough without productive sputum, No wheezing, hemoptysis. GASTROINTESTINAL: No anorexia, nausea, vomiting or diarrhea, abdominal pain, melena, BRBPR. GENITOURINARY: No dysuria, frequency, urgency or retention. NEUROLOGICAL: No headache, dizziness, syncope, paralysis, ataxia, numbness or tingling in the extremities, focal weakness, change in bowel or bladder control, seizure. MUSCULOSKELETAL:+ muscle, back pain, joint pain or stiffness. HEMATOLOGIC: + anemia, bleeding or bruising. LYMPHATICS: No enlarged nodes. No history of splenectomy. PSYCHIATRIC: No history of depression or anxiety. ENDOCRINOLOGIC: No reports of sweating, cold or heat intolerance. No polyuria or polydipsia. ALLERGIES: No history of asthma, hives, eczema or rhinitis. Physical Exam Const alert, oriented x3 and no apparent distress HEENT head/scalp atraumatic, moist oral mucous membranes and oropharynx normal HEENT Narrative: tracheostomy in place Head and Scalp: normocephalic Mouth: oral and palatal mucosa normal Eyes PERRL and EOMs intact bilaterally Neck no lymphadenopathy, supple and no JVD Resp Resp Narrative: diminished breath sounds bibasally, no wheezes or crackles. On oxygen via tracheostomy Cardio regular rate, regular rhythm, S1 normal heart sound, S2 normal heart sound and no murmurs GI normal to inspection, nondistended, normoactive bowel sounds, soft to palpation, non-tender and non-distended Extremity normal to inspection, full ROM and no clubbing, cyanosis or edema Neuro oriented x3, CN's II-XII intact bilaterally, moves all extremities and no focal motor deficits Sensorium / Orientation: awake and alert Motor Exam: strength 5/5 throughout Psych affect normal Lab / Micro Data Result Diagrams: 12/10/21 05:35 12/10/21 05:35 Labs: Laboratory Results - last 24 hr 12/07/21 11:02: Fluid pH 7.5, Fluid Amylase 67 12/09/21 18:03: POC Glucose 165 H 12/09/21 22:22: POC Glucose 119 H 12/10/21 05:35: WBC 5.2, RBC 3.34 L, Hgb 9.6 L, Hct 29.6 L, MCV 88.6, MCH 28.7, MCHC 32.4, RDW Std Deviation 41.0, RDW Coeff of Alisson 12.6, Plt Count 300, MPV 9.7, Immature Gran % (Auto) 0.400, Neut % (Auto) 64.3, Lymph % (Auto) 13.1 L, [place] % (Auto) 13.1 H, Eos % (Auto) 8.5 H, Baso % (Auto) 0.6, Absolute Neuts (auto) 3.4, Absolute Lymphs (auto) 0.68 L, Nucleated RBC % 0 12/10/21 05:35: Sodium 136, Potassium 4.1, Chloride 100, Carbon Dioxide 31.0, Anion Gap 5, BUN 42 H, Creatinine 1.63 H, Estim Creat Clear Calc 47.48, Est GFR (MDRD) Af Amer 55 L, Est GFR (MDRD) Non-Af 45 L, BUN/Creatinine Ratio 25.8 H, Glucose 109 H, Calcium 8.0 L 12/10/21 06:42: POC Glucose 118 H 12/10/21 12:05: POC Glucose 129 H Micro: Microbiology 12/07/21 11:02 Fluid - Thoracentesis Fluid Gram Stain - Final 12/07/21 11:02 Fluid - Thoracentesis Fluid Body Fluid Culture - Final Culture exhibits no growth. 12/07/21 11:02 Fluid - Thoracentesis Fluid Anaerobic Culture - Preliminary No growth in 48 hours. Charges/Coding Visit Charges Inpatient E&M: 57770 Init Hosp L2
[2021-12-10 17:50] LABS: Bedside Glucose 109 mg/dL (74-106)
[2021-12-10] MEDS: Insulin Glargine-YFGN 100 UNIT/ML Pen 36 UNIT SC (21:58)
[2021-12-10] MEDS: Atorvastatin Calcium 40 MG Tablet PO (22:00)
[2021-12-10] MEDS: MELATONIN 10 MG TABLET 20 MG PO (22:00)
[2021-12-10 23:10] LABS: Bedside Glucose 145 mg/dL (74-106)
[2021-12-11] VITALS (12 sets, daily range): BP systolic 103–115; BP diastolic 51–76; PULSE 67–89; RESP 16–18; TEMP 36.8; O2SAT 94–100
[2021-12-11] MEDS: Acetaminophen 325 MG Tablet 650 MG PO (05:53)
[2021-12-11] MEDS: guaiFENesin 10 ML UDC (200MG/10ML) 20 ML PO (05:53)
[2021-12-11] MEDS: Levothyroxine 150 MCG Tablet PO (05:54)
[2021-12-11 06:04] LABS: Absolute Lymphocyte Count 0.65 X10^3/uL (0.83-4.51); Absolute Neutrophil Count 3.3 X10^3/uL (2.0-7.7); Basophil# 0.03 X10^3/uL; Basophil% 0.6 % (0-1); Eosinophil# 0.36 X10^3/uL; Eosinophils% 7.2 % (0-5); Hematocrit 29.1 % (40-54); Hemoglobin 9.2 g/dL (13.0-16.5); Lymphocyte # 0.65 X10^3/ul (0.83-4.51); Lymphocyte % 13.1 % (19-41); Mean Corp Hgb Conc 31.6 g/dL (32-36); Mean Corpuscular Hgb 28.4 pg (27.0-32.0); Mean Corpuscular Volume 89.8 fL (80-94); Mean Platelet Vol. 9.8 fl (6.2-12.0); Monocyte# 0.63 X10^3/uL; Monocyte% 12.7 % (0-10); NRBC Flagged by Analyzer 0 % (0-5); Neutrophil # 3.29 X10^3/uL (2.7-7.7); Platelet Count 330 K/mm3 (150-450); RBC Distribution Width CV 12.5 % (11.6-14.6); RBC Distribution Width SD 41.6 fl (35.1-43.9); Red Blood Count 3.24 M/mm3 (4.6-6.2)
[2021-12-11] MEDS: Budesonide Respules 0.5 MG/2 ML AMPUL.NEB. INHALATION ×2 (06:05→20:12)
[2021-12-11] MEDS: Ipratropium/Albuterol Sulfate 3 ML AMPUL.NEB INHALATION ×3 (06:05→20:12)
[2021-12-11 06:25] LABS: Anion Gap 6 (5-15); BUN 49 mg/dL (7-18); BUN/Creat Ratio 24.5 RATIO (10-20); Chloride 97 mmol/L (98-107); EST Glomerular Filtration Rate 36 mL/min (>60); Est Glom Filt Rate - Afr Amer 43 mL/min (>60); Glucose 75 mg/dL (74-106); Potassium 4.4 mmol/L (3.5-5.1); Sodium Level 134 mmol/L (136-145)
[2021-12-11 07:05] LABS: Bedside Glucose 67 mg/dL (74-106)
[2021-12-11 07:06] LABS: Bedside Glucose 81 mg/dL (74-106)
[2021-12-11] MEDS: dilTIAZem CD 120 MG Capsule PO ×2 (08:12→16:47)
[2021-12-11] MEDS: Furosemide 40 MG/4 ML Vial IV ×2 (08:15→16:47)
[2021-12-11] MEDS: guaiFENesin 1,200 MG Tablet 1200 MG PO ×2 (08:15→21:34)
[2021-12-11] MEDS: Lisinopril 5 MG Tablet PO (08:15)
[2021-12-11] MEDS: Pantoprazole Sodium 20 MG Tablet PO (08:15)
[2021-12-11] MEDS: 0.9% Saline Lock 10 ML Syringe IV ×3 (08:16→21:35)
--- NOTE | 2021-12-11 08:23 | CON.PCM.CC_ITS ---
Assessment & Plan Assessment/Plan (1) Pleural effusion, left: PLAN: Plan RECOMMENDATIONS: 1. Continue trach collar oxygen to maintain saturations at or above 90%. 2. Obtain follow-up chest x-ray to evaluate for pleural fluid reaccumulation. 3. Continue diuresis as tolerated by hemodynamics and renal function. 4. Continue antimicrobials to complete treatment course. IMPRESSIONS: 1. Recurrent pleural effusion The patient has had several hospital admissions with a recurrent pleural effusion, which according to the pleural fluid analysis during this hospitalization, is borderline exudative based on total protein levels. Ho wever, the total protein levels are likely elevated due to his ongoing diuresis in the setting of congestive heart failure. Pleural fluid cultures have not demonstrated any growth. Repeat cytology was negative. Nevertheless, the patient did have a sputum culture on December 06 that was positive for pansensitive Proteus mirabilis. The patient remains on antimicrobials. At this time, I would recommend that we obtain a follow-up chest x-ray to evaluate for pleural fluid reaccumulation. In the meantime, continue to wean oxygen as tolerated. Continue antimicrobials to complete treatment course along with diuretics as tolerated by hemodynamics and renal function. 2. Dysphagia Over concerns for a 1 year history of swallowing difficulty, gastroenterology was consulted with tentative plans to perform an upper endoscopy. 3. History of laryngeal CA status post tracheostomy/morbid obesity/hypothyroidism/COPD/chronic respiratory failure/paroxysmal atrial fibrillation Complicates care, management, recovery and prognosis. Continue home medications as indicated. This note was generated with [email or web address] dictation software. It may contain incorrect words, spelling, and punctuation that were not noted in checking the note before signing. HPI Consult Data Date of Consult: 12/11/21 HPI Narrative Reason for Consultation: Pleural effusion HPI Narrative: The patient is a 66-year-old male, with a history as outlined below, who presented to the emergency department on December 06 with shortness of breath. The patient has a known history of coronary artery disease, paroxysmal atrial fibrillation, heart failure with preserved ejection fraction, history of laryngeal cancer status post tracheostomy in 2007, chronic kidney disease, COPD and chronic hypoxemic respiratory failure. The patient is currently followed by pulmonary medicine through [facility]. The patient was admitted to the hospital in October under similar circumstances with a left-sided pleural effusion and atrial fibrillation with RVR. He underwent a thoracentesis at that time which revealed a transudative pleural effusion. Cytology was negative. The patient's last echocardiogram in October 2021 demonstrated an ejection fraction of 55%. Pulmonary pressures were not estimated. The patient was last seen by cardiology in November, at which time he was noted to be on Lasix twice daily and metolazone 3 times a week. Cardiology has not been asked to evaluate the patient while admitted during this hospitalization. On December 07, the patient did undergo a repeat thoracentesis with 1.5 L of ambe r-colored fluid drained. This fluid was borderline exudative in nature. However, the patient was actively being diuresed which likely increased his protein levels. This morning, the patient did report that his breathing quality improved significantly after the thoracentesis. He stated that his cardiology provider has not dose adjusted his diuretics recently. [facility] Medical History (HFpEF) heart failure with preserved ejection fraction Acute hypercapnic respiratory failure Ambulates with cane Anxiety Atherosclerosis of coronary artery of [place] heart without angina pectoris Back pain Benign neoplasm of colon Cholelithiasis Chronic diastolic (congestive) heart failure Chronic renal failure, stage 3 (moderate) COPD (chronic obstructive pulmonary disease) COPD with acute exacerbation Diabetes mellitus, type II Diverticulosis of colon (without mention of hemorrhage) Easy bruising Edema Emphysema, unspecified Esophageal dysmotility Essential hypertension Excessive bleeding Former smoker Gastric reflux Gastroenteritis Gout Hiatal hernia History of colon polyps History of renal disease History of steroid therapy History of stress test Hyperlipidemia Hypothyroidism Hypoxemia Injury of back Injury of head and neck Insomnia Kidney failure Laryngeal cancer Leg cramps Malignant neoplasm of head, neck and face Migraine headache Morbid obesity Morbid obesity Normal stress echocardiogram Obesity On home oxygen therapy Pleural effusion, left Polyneuropathy due to type 2 diabetes mellitus Shortness of breath Shortness of breath on exertion Thyroid disease Type 2 diabetes mellitus without complication Type 2 diabetes with stage 3 chronic kidney disease GFR 30-59 Walker as ambulation aid Wears glasses Home Medications levothyroxine 150 mcg tablet 150 mcg PO DAILY hypothyroidism 06/04/14 [History Last Taken 12/05/21] atorvastatin 40 mg tablet 40 mg PO DAILY@1700 cholesterol 04/12/17 [History Last Taken 12/05/21] ipratropium 0.5 mg-albuterol 3 mg (2.5 mg base)/3 mL nebulization soln 3 ml inhalation Q6H sob 04/12/17 [History Last Taken 12/06/21] flash glucose sensor (FreeStyle Zayra 2 Sensor kit) #2 ea 05/17/21 [Rx Last Taken Unknown] diltiazem HCl 120 mg capsule,extended release 24 hr 120 mg PO BIDCM #60 caps 10/28/21 [Rx Last Taken 1 Week Ago ~11/29/21] insulin detemir U-100 100 unit/mL (3 mL) subcutaneous pen (Levemir FlexTouch U- 100 Insulin) 25 unit subcut BID DIABETES 11/07/21 [History Last Taken 12/05/21] lisinopril 5 mg tablet 5 mg PO DAILY BLOOD PRESSURE 11/07/21 [History Last Taken 12/05/21] metolazone 2.5 mg tablet 2.5 mg PO MOWEFR EDEMA 11/07/21 [History Last Taken 12/05/21] Vitamin B-12 1 tab PO/SL DAILY SUPPLEMENT 12/06/21 [History Last Taken 12/05/21] acetaminophen 325 mg tablet 650 mg PO DAILY PAIN 12/06/21 [History Last Taken 12/05/21] budesonide 0.5 mg/2 mL suspension for nebulization (Pulmicort) 0.5 mg inhalation BID sob 12/06/21 [History Last Taken Unknown] dulaglutide 4.5 mg/0.5 mL subcutaneous pen injector (Trulicity) 4.5 mg subcut FR DIABETES 12/06/21 [History Last Taken 12/02/21] furosemide 40 mg tablet 40 mg PO 0900,1700 EDEMA 12/06/21 [History Last Taken 12/05/21] guaifenesin 600 mg tablet, extended release 12 hr (Mucinex) 600 mg PO DAILY PRN Congestion 12/06/21 [History Last Taken 12/05/21] melatonin 10 mg tablet 20 mg PO QHS SLEEP 12/06/21 [History Last Taken Unknown] metformin 500 mg tablet,extended release 24 hr 500 mg PO 0900,1700 DIABETES 12/06/21 [History Last Taken 12/05/21] omeprazole 20 mg capsule,delayed release 20 mg PO DAILY GERD 12/06/21 [History Last Taken 12/05/21] Allergy/AdvReac Type Severity Reaction Status Date / Time egg [eggs] AdvReac Vomiting Verified 12/06/21 11:51 Family History Mother Diabetes Hypertension Kidney disease Heart failure Father CVA (cerebral vascular accident) Hypertension Heart disease ischemic Brother Diabetes Surgical History History of cardiac catheterization History of exploratory laparotomy History of laryngectomy (2007) History of thyroidectomy Hx of colonoscopy Presence of tracheostomy Social History Smoking Status: Former smoker Smokeless tobacco user: snuff how long ago did patient quit smokin years ago alcohol intake: never substance use type: does not use caffeine: Yes what type of physical activity do you participate in: none frequency: does not exercise ROS ROS Narrative 10 systems reviewed with pertinent positives as noted in the HPI above. Physical Exam Const alert and no apparent distress Constitutional Narrative: Morbidly obese. Sitting in bedside recliner. General Appearance: cooperative HEENT normocephalic and head/scalp atraumatic Eyes PERRL, EOMs intact bilaterally and conjunctivae normal Neck supple Neck Narrative: Stable tracheostomy site. General: trachea midline Chest inspection of chest normal Resp normal respiratory effort Auscultation: diminished lung sounds; Negative for rales, rhonchi or wheezes Cardio regular rate and regular rhythm GI normal to inspection, nondistended, normoactive bowel sounds Extremity no clubbing, cyanosis or edema Skin no rashes or lesions noted Neuro oriented x3, moves all extremities and no focal motor deficits Psych cooperative and affect normal Lab / Micro Data Result Diagrams: 12/11/21 05:35 12/11/21 05:35 Labs: Laboratory Results - last 24 hr 12/07/21 11:02: Fluid pH 7.5, Fluid Amylase 67 12/10/21 12:05: POC Glucose 129 H 12/10/21 17:07: POC Glucose 109 H 12/10/21 21:54: POC Glucose 145 H 12/11/21 05:35: WBC 5.0, RBC 3.24 L, Hgb 9.2 L, Hct 29.1 L, MCV 89.8, MCH 28.4, MCHC 31.6 L, RDW Std Deviation 41.6, RDW Coeff of Alisson 12.5, Plt Count 330, MPV 9.8, Immature Gran % (Auto) 0.400, Neut % (Auto) 66.0, Lymph % (Auto) 13.1 L, [place] % (Auto) 12.7 H, Eos % (Auto) 7.2 H, Baso % (Auto) 0.6, Absolute Neuts (auto) 3.3, Absolute Lymphs (auto) 0.65 L, Nucleated RBC % 0 12/11/21 05:35: Sodium 134 L, Potassium 4.4, Chloride 97 L, Carbon Dioxide 31.0, Anion Gap 6, BUN 49 H, Creatinine 2.00 H, Estim Creat Clear Calc 38.70, Est GFR (MDRD) Af Amer 43 L, Est GFR (MDRD) Non-Af 36 L, BUN/Creatinine Ratio 24.5 H, Glucose 75, Calcium 8.0 L 12/11/21 06:02: POC Glucose 67 L 12/11/21 06:18: POC Glucose 81 Micro: Microbiology 12/07/21 11:02 Fluid - Thoracentesis Fluid Gram Stain - Final 12/07/21 11:02 Fluid - Thoracentesis Fluid Body Fluid Culture - Final Culture exhibits no growth. 12/07/21 11:02 Fluid - Thoracentesis Fluid Anaerobic Culture - Preliminary No growth in 48 hours. Charges/Coding Visit Charges Inpatient E&M: 05520 Init Hosp L3
--- NOTE | 2021-12-11 08:47 | RAD_ITS ---
STUDY: X-RAY CHEST REASON FOR EXAM: Male, 66 years old. Chest pain/pressure TECHNIQUE: 2 AP portable view COMPARISON: 12/07/2021 FINDINGS: Stable appearance of a tracheostomy tube. EKG leads overlie the chest. Right lung is expanded and free of a superimposed process. Stable opacification in the inferior half of the left hemithorax, likely combination of effusion/atelectasis/infiltrate. Follow-up recommended to ensure resolution. Normal size heart. Normal mediastinum and laura. Normal visualized pulmonary arteries. Normal visualized aortic arch and descending thoracic aorta. Normal visualized thoracic spine. Normal visualized ribs, clavicles, and shoulders. There is no demonstrated abnormality of the visualized soft tissue structures of the upper abdomen. RAD/Chest 1 View (Portable) IMPRESSION: No significant interval change Electronically Signed: Roderick Tamayo MD at 10:37 EST ,
[2021-12-11 10:30] LABS: Bedside Glucose 98 mg/dL (74-106)
[2021-12-11] MEDS: Ceftriaxone 1 GM/50 ML BAG IV (11:18)
--- NOTE | 2021-12-11 12:19 | PN.HOSP_ITS ---
Subjective Subjective Patient seen and examined. He had no active complaints today and had an uneventful night. He is on 10 L of oxygen at FiO2 of 30% via the trach. He is usually on 2-4L of oxygne at home. He doesnt feel any more short of breath though. Review of systems is otherwise negative. Objective Data Objective Data Vital Signs: Vital Signs Temp Pulse Resp BP Pulse Ox O2 Del Method O2 Flow Rate 98.2 F 89 16 103/65 98 Trach Collar 10 12/11/21 08:09 12/11/21 08:09 12/11/21 08:09 12/11/21 08:09 12/11/21 08:09 12/11/21 08:09 12/11/21 07:54 FiO2 30 12/11/21 08:09 Oxygen Flow Rate (L/min) [4] 8 Oxygen Flow Rate (L/min) [3] 8 Oxygen Flow Rate (L/min) [2] 8 Oxygen Flow Rate (L/min) [1 ( 8 Initial Baseline)] Oxygen Flow Rate (L/min) 10 Oxygen Delivery Method [4] Nasal Cannula Oxygen Delivery Method [3] Trach Collar Oxygen Delivery Method [2] Trach Collar Oxygen Delivery Method [1 ( Trach Collar Initial Baseline)] Oxygen Delivery Method Trach Collar Weight: 302 lb 11.115 oz Body Mass Index (BMI) 41.5 Intake & Output: Intake and Output for Last 24 Hours 12/09/21 12/10/21 12/11/21 23:59 23:59 22:59 Intake Total 1585 / 1585 530 / 530 430 / 430 Output Total 500 / 500 Balance 1585 / 1585 30 / 30 430 / 430 Lab / Micro Data Result Diagrams: 12/11/21 05:35 12/11/21 05:35 Labs: Laboratory Results - last 24 hr 12/07/21 11:02: Fluid pH 7.5, Fluid Amylase 67 12/10/21 17:07: POC Glucose 109 H 12/10/21 21:54: POC Glucose 145 H 12/11/21 05:35: WBC 5.0, RBC 3.24 L, Hgb 9.2 L, Hct 29.1 L, MCV 89.8, MCH 28.4, MCHC 31.6 L, RDW Std Deviation 41.6, RDW Coeff of Alisson 12.5, Plt Count 330, MPV 9.8, Immature Gran % (Auto) 0.400, Neut % (Auto) 66.0, Lymph % (Auto) 13.1 L, [place] % (Auto) 12.7 H, Eos % (Auto) 7.2 H, Baso % (Auto) 0.6, Absolute Neuts (auto) 3.3, Absolute Lymphs (auto) 0.65 L, Nucleated RBC % 0 12/11/21 05:35: Sodium 134 L, Potassium 4.4, Chloride 97 L, Carbon Dioxide 31.0, Anion Gap 6, BUN 49 H, Creatinine 2.00 H, Estim Creat Clear Calc 38.70, Est GFR (MDRD) Af Amer 43 L, Est GFR (MDRD) Non-Af 36 L, BUN/Creatinine Ratio 24.5 H, Glucose 75, Calcium 8.0 L 12/11/21 06:02: POC Glucose 67 L 12/11/21 06:18: POC Glucose 81 12/11/21 08:06: POC Glucose 98 Micro: Microbiology 12/07/21 11:02 Fluid - Thoracentesis Fluid Gram Stain - Final 12/07/21 11:02 Fluid - Thoracentesis Fluid Body Fluid Culture - Final Culture exhibits no growth. 12/07/21 11:02 Fluid - Thoracentesis Fluid Anaerobic Culture - Preliminary No growth in 48 hours. 12/06/21 20:57 Sputum, Induced/Lukens Gram Stain - Final 12/06/21 20:57 Sputum, Induced/Lukens Respiratory Culture - Final Proteus mirabilis 12/07/21 04:14 Urine, Random Legionella Antigen - Final 12/07/21 04:14 Urine, Random Streptococcus pneumoniae Antigen (M - Final 12/06/21 17:51 Mucosa - Nasopharyngeal Respiratory Panel (PCR) - Final 12/06/21 12:20 Nasal Secretion SARS-CoV-2 & FLU Antigen (Rapid) - Final Radiography Diagnostic Testing: Radiology Impression Chest X-Ray 12/11/21 08:47 IMPRESSION: No significant interval change Electronically Signed: Roderick Tamayo MD at 10:37 EST , Physical Exam Const alert, oriented x3 and no apparent distress HEENT head/scalp atraumatic, moist oral mucous membranes and oropharynx normal Head and Scalp: normocephalic Mouth: oral and palatal mucosa normal Eyes PERRL and EOMs intact bilaterally Neck no lymphadenopathy, supple and no JVD Resp Resp Narrative: diminished breath sounds bibasally, no wheezes or crackles. On 10L of oxygen via tracheostomy Cardio regular rate, regular rhythm, S1 normal heart sound, S2 normal heart sound and no murmurs GI normal to inspection, nondistended, normoactive bowel sounds, soft to palpation, non-tender and non-distended Extremity normal to inspection, full ROM and no clubbing, cyanosis or edema Neuro oriented x3, CN's II-XII intact bilaterally, moves all extremities and no focal motor deficits Sensorium / Orientation: awake and alert Motor Exam: strength 5/5 throughout Psych affect normal Assessment & Plan Assessment/Plan (1) Dyspnea: (2) Pleural effusion, left: PLAN: Plan Acute on chronic HFpEF with recurrent pleural effusion * S/p left-sided thoracentesis. * Being diuresed with IV lasix and metolazone. Monitor intake and output. Fluid restriction to 1500 cc daily. * Fluid analysis showed that it was a transudate * #Acute on chronic hypoxic respiratory failure * Patient is usually on 2 to 4 L of oxygen at home. Patient now on 10 L of oxygen at 30% FiO2 via his trach. * He has had recurrent pleural effusions thought to be due to acute on chronic heart failure. He is also on IV antibiotics for gram-negative community- acquired pneumonia. * Pulmonology consulted. * Repeated x-ray ordered showed no significant interval change. Showed a stable opacification in the inferior half of the left hemithorax which was unchanged. * Continue current antibiotics-IV ceftriaxone * get a CT chest tomorrow if his oxygen requirements dont improve * #Recurrent left-sided pleural effusion: As above. #Gram-negative community-acquired pneumonia: * Sputum culture with Proteus mirabilis. * On iV rocephin. #Dysphagia: * Thought to be related to his laryngeal cancer. * GI on board. Recommends upper endoscopy to evaluate upper GI tract #History of laryngeal carcinoma s/p tracheostomy: Stable #Hypothyroidism: On Synthroid #Hypertension: on lisinopril. #Type 2 diabetes mellitus: On long-acting insulin. Insulin sliding scale. Accu-Cheks ACH S. All meds on hold #Chronic anemia: Stable. hb is 9.6 #Paroxysmal A. fib: Rate controlled. On cardizem. On aspirin for stroke prophylaxis #Debility due to heart failure and recurrent pleural effusion: PT OT on board. DVT prophylaxis: SCDs. Charges/Coding Visit Charges Inpatient E&M: 89809 Subs Hosp L3
[2021-12-11 12:31] LABS: Bedside Glucose 119 mg/dL (74-106)
[2021-12-11 17:10] LABS: Bedside Glucose 120 mg/dL (74-106)
[2021-12-11] MEDS: Insulin Glargine-YFGN 100 UNIT/ML Pen 36 UNIT SC (21:34)
[2021-12-11] MEDS: MELATONIN 10 MG TABLET 20 MG PO (21:34)
[2021-12-11] MEDS: Atorvastatin Calcium 40 MG Tablet PO (21:34)
[2021-12-11 22:45] LABS: Bedside Glucose 125 mg/dL (74-106)
[2021-12-12] VITALS (19 sets, daily range): BP systolic 94–126; BP diastolic 54–81; PULSE 66–92; RESP 14–24; TEMP 36.3–37.4; O2SAT 93–100; BMI 41.5
[2021-12-12] MEDS: Levothyroxine 150 MCG Tablet PO (06:34)
[2021-12-12 06:56] LABS: Bedside Glucose 125 mg/dL (74-106)
[2021-12-12] MEDS: Ipratropium/Albuterol Sulfate 3 ML AMPUL.NEB INHALATION ×3 (06:57→18:57)
[2021-12-12] MEDS: Budesonide Respules 0.5 MG/2 ML AMPUL.NEB. INHALATION ×2 (06:57→18:57)
[2021-12-12 08:01] LABS: Absolute Neutrophil Count 3.3 X10^3/uL (2.0-7.7); Basophil# 0.03 X10^3/uL; Basophil% 0.6 % (0-1); Eosinophil# 0.33 X10^3/uL; Eosinophils% 6.6 % (0-5); Hematocrit 28.4 % (40-54); Hemoglobin 9.2 g/dL (13.0-16.5); Lymphocyte % 13.9 % (19-41); Mean Corp Hgb Conc 32.4 g/dL (32-36); Mean Corpuscular Hgb 28.4 pg (27.0-32.0); Mean Corpuscular Volume 87.7 fL (80-94); Mean Platelet Vol. 9.9 fl (6.2-12.0); Monocyte# 0.71 X10^3/uL; Monocyte% 14.1 % (0-10); NRBC Flagged by Analyzer 0 % (0-5); Neutrophil # 3.25 X10^3/uL (2.7-7.7); Neutrophil % 64.6 % (47-70); Platelet Count 355 K/mm3 (150-450); RBC Distribution Width CV 12.4 % (11.6-14.6); RBC Distribution Width SD 40.1 fl (35.1-43.9); Red Blood Count 3.24 M/mm3 (4.6-6.2)
[2021-12-12] MEDS: guaiFENesin 1,200 MG Tablet 1200 MG PO ×2 (08:11→21:51)
[2021-12-12] MEDS: Furosemide 40 MG/4 ML Vial IV ×2 (08:11→17:46)
[2021-12-12] MEDS: Metolazone 2.5 MG Tablet PO (08:13)
[2021-12-12] MEDS: Pantoprazole Sodium 20 MG Tablet PO (08:14)
[2021-12-12] MEDS: Ceftriaxone 1 GM/50 ML BAG IV (08:20)
[2021-12-12] MEDS: 0.9% Saline Lock 10 ML Syringe IV ×2 (08:21→17:49)
[2021-12-12 08:39] LABS: Anion Gap 6 (5-15); BUN 48 mg/dL (7-18); BUN/Creat Ratio 24.7 RATIO (10-20); Calcium,Total 8.3 mg/dL (8.5-10.1); Chloride 96 mmol/L (98-107); Creatinine, Serum 1.94 mg/dL (0.70-1.30); EST Glomerular Filtration Rate 37 mL/min (>60); Est Glom Filt Rate - Afr Amer 45 mL/min (>60); Estimated Creatinine Clearance 39.89 ml/min; Glucose 114 mg/dL (74-106); Potassium 4.2 mmol/L (3.5-5.1); Sodium Level 133 mmol/L (136-145)
--- NOTE | 2021-12-12 10:11 | PN_ITS ---
Subjective Subjective Patient still complains of esophageal dysphagia. He is not eating any solid foods. He denies any pain with swallowing. He denies any chest pain or shortness of breath. Objective Data Objective Data Vital Signs: Vital Signs Temp Pulse Resp BP Pulse Ox O2 Del Method O2 Flow Rate 98.4 F 82 18 104/62 95 Trach Collar 8 12/12/21 08:08 12/12/21 08:08 12/12/21 08:08 12/12/21 08:08 12/12/21 08:08 12/12/21 08:08 12/12/21 08:08 FiO2 30 12/12/21 06:57 Oxygen Flow Rate (L/min) [4] 8 Oxygen Flow Rate (L/min) [3] 8 Oxygen Flow Rate (L/min) [2] 8 Oxygen Flow Rate (L/min) [1 ( 8 Initial Baseline)] Oxygen Flow Rate (L/min) 8 Oxygen Delivery Method [4] Nasal Cannula Oxygen Delivery Method [3] Trach Collar Oxygen Delivery Method [2] Trach Collar Oxygen Delivery Method [1 ( Trach Collar Initial Baseline)] Oxygen Delivery Method Trach Collar Weight: 308 lb 3.3 oz Body Mass Index (BMI) 41.5 Intake & Output: Intake and Output for Last 24 Hours 12/11/21 12/11/21 12/12/21 00:59 23:59 23:59 Intake Total Output Total Balance Lab / Micro Data Result Diagrams: 12/12/21 06:42 12/12/21 06:42 Labs: Laboratory Results - last 24 hr 12/11/21 08:06: POC Glucose 98 12/11/21 11:20: POC Glucose 119 H 12/11/21 16:43: POC Glucose 120 H 12/11/21 21:28: POC Glucose 125 H 12/12/21 06:33: POC Glucose 125 H 12/12/21 06:42: WBC 5.0, RBC 3.24 L, Hgb 9.2 L, Hct 28.4 L, MCV 87.7, MCH 28.4, MCHC 32.4, RDW Std Deviation 40.1, RDW Coeff of Alisson 12.4, Plt Count 355, MPV 9.9, Immature Gran % (Auto) 0.200, Neut % (Auto) 64.6, Lymph % (Auto) 13.9 L, [place] % (Auto) 14.1 H, Eos % (Auto) 6.6 H, Baso % (Auto) 0.6, Absolute Neuts (auto) 3.3, Absolute Lymphs (auto) 0.70 L, Nucleated RBC % 0 12/12/21 06:42: Sodium 133 L, Potassium 4.2, Chloride 96 L, Carbon Dioxide 31.0, Anion Gap 6, BUN 48 H, Creatinine 1.94 H, Estim Creat Clear Calc 39.89, Est GFR (MDRD) Af Amer 45 L, Est GFR (MDRD) Non-Af 37 L, BUN/Creatinine Ratio 24.7 H, Gl ucose 114 H, Calcium 8.3 L Micro: Microbiology 12/07/21 11:02 Fluid - Thoracentesis Fluid Gram Stain - Final 12/07/21 11:02 Fluid - Thoracentesis Fluid Body Fluid Culture - Final Culture exhibits no growth. 12/07/21 11:02 Fluid - Thoracentesis Fluid Anaerobic Culture - Preliminary No growth in 48 hours. 12/06/21 20:57 Sputum, Induced/Lukens Gram Stain - Final 12/06/21 20:57 Sputum, Induced/Lukens Respiratory Culture - Final Proteus mirabilis 12/07/21 04:14 Urine, Random Legionella Antigen - Final 12/07/21 04:14 Urine, Random Streptococcus pneumoniae Antigen (M - Final 12/06/21 17:51 Mucosa - Nasopharyngeal Respiratory Panel (PCR) - Final 12/06/21 12:20 Nasal Secretion SARS-CoV-2 & FLU Antigen (Rapid) - Final Radiography Diagnostic Testing: Radiology Impression Chest X-Ray 12/11/21 08:47 IMPRESSION: No significant interval change Electronically Signed: Roderick Tamayo MD at 10:37 EST , Physical Exam Const alert, oriented x3 and no apparent distress HEENT head/scalp atraumatic, moist oral mucous membranes and oropharynx normal Head and Scalp: normocephalic Mouth: oral and palatal mucosa normal Eyes PERRL and EOMs intact bilaterally Neck no lymphadenopathy, supple and no JVD Resp Resp Narrative: diminished breath sounds bibasally, no wheezes or crackles. On 10L of oxygen via tracheostomy Cardio regular rate, regular rhythm, S1 normal heart sound, S2 normal heart sound and no murmurs GI normal to inspection, nondistended, normoactive bowel sounds, soft to palpation, non-tender and non-distended Extremity normal to inspection, full ROM and no clubbing, cyanosis or edema Neuro oriented x3, CN's II-XII intact bilaterally, moves all extremities and no focal motor deficits Sensorium / Orientation: awake and alert Motor Exam: strength 5/5 throughout Psych affect normal Assessment & Plan Assessment/Plan (1) Dysphagia: PLAN: He has oropharyngeal dysphagia and I suspect he has esophageal dysphagia. He will undergo an upper endoscopy today to evaluate his upper GI tract. He was explained alternatives, risk, benefits including outstanding bleeding, infection, sepsis, perforation, need for emergent surgery . He will have an ASA of 3. He may also undergo esophageal dilation. The risk and benefits of that was explained to the patient. Charges/Coding Visit Charges Inpatient E&M: 80972 Subs Hosp L2
--- NOTE | 2021-12-12 10:47 | NURSING ---
report called to Gabrielle in ac
[2021-12-12] MEDS: Lactated Ringers 1,000 ML 15 ML IV (11:01)
--- NOTE | 2021-12-12 12:08 | OP.EGD_ITS ---
Patient Name: Sathya Chow Procedure Date: 12/12/2021 11:35 AM Date of : 1955 Age: 66 Procedure: Upper GI endoscopy Indications: Dysphagia Providers: Mukseh Singh DO Medicines: Monitored Anesthesia Care Patient Profile: This is a 66 year old male. Refer to note in patient chart for documentation of history and physical. Patient has symptoms of chronic dysphagia and dysphagia with both liquids and solids. The patient is status-post surgical alteration of the upper digestive tract anatomy. Complications: No immediate complications. Procedure: Pre-Anesthesia Assessment: - Prior to the procedure, a History and Physical was performed, and patient medications and allergies were reviewed. The patient is competent. The risks and benefits of the procedure and the sedation options and risks were discussed with the patient. All questions were answered and informed consent was obtained. Patient identification and proposed procedure were verified by the physician in the pre-procedure area. Mental Status Examination: alert and oriented. Airway Examination: normal oropharyngeal airway and neck mobility. Respiratory Examination: clear to auscultation. CV Examination: normal. Prophylactic Antibiotics: The patient does not require prophylactic antibiotics. Prior Anticoagulants: The patient has taken no previous anticoagulant or antiplatelet agents. ASA Grade Assessment: II - A patient with mild systemic disease. After reviewing the risks and benefits, the patient was deemed in satisfactory condition to undergo the procedure. The anesthesia plan was to use monitored anesthesia care (MAC). Immediately prior to administration of medications, the patient was re-assessed for adequacy to receive sedatives. The heart rate, respiratory rate, oxygen saturations, blood pressure, adequacy of pulmonary ventilation, and response to care were monitored throughout the procedure. The physical status of the patient was re-assessed after the procedure. After obtaining informed consent, the endoscope was passed under direct vision. Throughout the procedure, the patient's blood pressure, pulse, and oxygen saturations were monitored continuously. The gastroscope was introduced through the mouth, and advanced to the second part of duodenum. The upper GI endoscopy was accomplished without difficulty. The patient tolerated the procedure well. Scope In: 11:45:20 AM Scope Out: 11:52:32 AM Total Procedure Duration Time 0 hours 7 minutes 12 seconds Findings: One benign-appearing, intrinsic stenosis was found 20 to 23 cm from the incisors. This stenosis was severe and measured 5 mm (inner diameter) x 3 cm (in length). The stenosis was traversed after dilation. A guidewire was placed and the scope was withdrawn. Dilation was performed with a Savary dilator with no resistance at 54 Fr. The dilation site was examined following endoscope reinsertion and showed moderate improvement in luminal narrowing. Estimated blood loss was minimal. The entire examined stomach was normal. The cardia and gastric fundus were normal on retroflexion. No gross lesions were noted in the second portion of the duodenum. A small hiatal hernia was present. Impression: - Benign-appearing esophageal stenosis. Dilated. - Normal stomach. - No gross lesions in the second portion of the duodenum. - No specimens collected. Recommendation: - Discharge patient to home. - Resume previous diet. - Continue present medications. Procedure Code(s): --- Professional --- 22787, Esophagogastroduodenoscopy, flexible, transoral; with insertion of guide wire followed by passage of dilator(s) through esophagus over guide wire CPT copyright 2017 [employer]. All rights reserved. The codes documented in this report are preliminary and upon software licensing specialist review may be revised to meet current compliance requirements. Mukesh Singh DO 12/12/2021 12:08:18 PM This report has been signed electronically. Number of Addenda: 0 Note Initiated On: 12/12/2021 11:35 AM
--- NOTE | 2021-12-12 12:09 | OP.CCLET_ITS ---
12/12/2021 Chinmay Sin MD Re : Upper GI endoscopy procedure for Sathya Chow Dear Dr. Sin This procedure was performed on Sunday, December 12, 2021. My impressions and recommendations are as follows: Impressions : - Benign-appearing esophageal stenosis. Dilated. - Normal stomach. - No gross lesions in the second portion of the duodenum. - No specimens collected. Recommendations : - Discharge patient to home. - Resume previous diet. - Continue present medications. My findings are described in the full procedure note, which is enclosed. If I can be of further assistance, please feel free to contact me at . Sincerely, Mukesh Singh, 12/12/2021 12:08:18 PM This report has been signed electronically.
[2021-12-12 13:10] LABS: Bedside Glucose 103 mg/dL (74-106)
--- NOTE | 2021-12-12 14:35 | PN.HOSP_ITS ---
Subjective Subjective Patient seen and examined this morning. He has no active complaints. He was on 8 L of oxygen. He had an uneventful night and review of systems otherwise negative. He is for EGD today. Objective Data Objective Data Vital Signs: Vital Signs Temp Pulse Resp BP Pulse Ox O2 Del Method O2 Flow Rate 97.9 F 92 18 107/69 100 Trach Collar 6 12/12/21 12:38 12/12/21 13:27 12/12/21 13:27 12/12/21 12:38 12/12/21 12:38 12/12/21 12:38 12/12/21 12:38 FiO2 35 12/12/21 12:14 Oxygen Flow Rate (L/min) [4] 8 Oxygen Flow Rate (L/min) [3] 8 Oxygen Flow Rate (L/min) [2] 8 Oxygen Flow Rate (L/min) [1 ( 8 Initial Baseline)] Oxygen Flow Rate (L/min) 6 Oxygen Delivery Method [4] Nasal Cannula Oxygen Delivery Method [3] Trach Collar Oxygen Delivery Method [2] Trach Collar Oxygen Delivery Method [1 ( Trach Collar Initial Baseline)] Oxygen Delivery Method Trach Collar Weight: 308 lb 3.3 oz Body Mass Index (BMI) 41.5 Intake & Output: Intake and Output for Last 24 Hours 12/11/21 12/11/21 12/12/21 00:59 23:59 23:59 Intake Total 100 / 100 Output Total 0 / 0 Balance 100 / 100 Lab / Micro Data Result Diagrams: 12/12/21 06:42 12/12/21 06:42 Labs: Laboratory Results - last 24 hr 12/11/21 16:43: POC Glucose 120 H 12/11/21 21:28: POC Glucose 125 H 12/12/21 06:33: POC Glucose 125 H 12/12/21 06:42: WBC 5.0, RBC 3.24 L, Hgb 9.2 L, Hct 28.4 L, MCV 87.7, MCH 28.4, MCHC 32.4, RDW Std Deviation 40.1, RDW Coeff of Alisson 12.4, Plt Count 355, MPV 9.9, Immature Gran % (Auto) 0.200, Neut % (Auto) 64.6, Lymph % (Auto) 13.9 L, [place] % (Auto) 14.1 H, Eos % (Auto) 6.6 H, Baso % (Auto) 0.6, Absolute Neuts (auto) 3.3, Absolute Lymphs (auto) 0.70 L, Nucleated RBC % 0 12/12/21 06:42: Sodium 133 L, Potassium 4.2, Chloride 96 L, Carbon Dioxide 31.0, Anion Gap 6, BUN 48 H, Creatinine 1.94 H, Estim Creat Clear Calc 39.89, Est GFR (MDRD) Af Amer 45 L, Est GFR (MDRD) Non-Af 37 L, BUN/Creatinine Ratio 24.7 H, Glucose 114 H, Calcium 8.3 L 12/12/21 12:44: POC Glucose 103 Micro: Microbiology 12/07/21 11:02 Fluid - Thoracentesis Fluid Gram Stain - Final 12/07/21 11:02 Fluid - Thoracentesis Fluid Body Fluid Culture - Final Culture exhibits no growth. 12/07/21 11:02 Fluid - Thoracentesis Fluid Anaerobic Culture - Final No growth in 5 days. 12/06/21 20:57 Sputum, Induced/Lukens Gram Stain - Final 12/06/21 20:57 Sputum, Induced/Lukens Respiratory Culture - Final Proteus mirabilis 12/07/21 04:14 Urine, Random Legionella Antigen - Final 12/07/21 04:14 Urine, Random Streptococcus pneumoniae Antigen (M - Final 12/06/21 17:51 Mucosa - Nasopharyngeal Respiratory Panel (PCR) - Final 12/06/21 12:20 Nasal Secretion SARS-CoV-2 & FLU Antigen (Rapid) - Final Physical Exam Const alert, oriented x3 and no apparent distress HEENT head/scalp atraumatic, moist oral mucous membranes and oropharynx normal Head and Scalp: normocephalic Mouth: oral and palatal mucosa normal Eyes PERRL and EOMs intact bilaterally Neck no lymphadenopathy, supple and no JVD Resp Resp Narrative: diminished breath sounds bibasally, no wheezes or crackles. On 8L of oxygen via tracheostomy Cardio regular rate, regular rhythm, S1 normal heart sound, S2 normal heart sound and no murmurs GI normal to inspection, nondistended, normoactive bowel sounds, soft to palpation, non-tender and non-distended Extremity normal to inspection, full ROM and no clubbing, cyanosis or edema Neuro oriented x3, CN's II-XII intact bilaterally, moves all extremities and no focal motor deficits Sensorium / Orientation: awake and alert Motor Exam: strength 5/5 throughout Psych affect normal Assessment & Plan Assessment/Plan (1) Dyspnea: (2) Pleural effusion, left: PLAN: Plan Acute on chronic HFpEF with recurrent pleural effusion * S/p left-sided thoracentesis. * Being diuresed with IV lasix and metolazone. Monitor intake and output. Fluid restriction to 1500 cc daily. * Fluid analysis showed that it was a transudate * #Acute on chronic hypoxic respiratory failure * Patient is usually on 2 to 4 L of oxygen at home. Patient now on 8 L of oxygen at 30% FiO2 via his trach. * He has had recurrent pleural effusions thought to be due to acute on chronic heart failure. He is also on IV antibiotics for gram-negative community- acquired pneumonia. * Pulmonology consulted. * Repeated x-ray ordered showed no significant interval change. Showed a stable opacification in the inferior half of the left hemithorax which was unchanged. * Continue current antibiotics-IV ceftriaxone * oxygen requirements improving gradually. * #Recurrent left-sided pleural effusion: As above. #Gram-negative community-acquired pneumonia: * Sputum culture with Proteus mirabilis. * On iV rocephin. #Dysphagia: * Thought to be related to his laryngeal cancer. * GI on board. * for EGD today: it showed benign appearing esophageal stenosis which was dilated and normal stomach as well as no gross lesions in second portion of the duodenum #History of laryngeal carcinoma s/p tracheostomy: Stable #Hypothyroidism: On Synthroid #Hypertension: on lisinopril. #Type 2 diabetes mellitus: On long-acting insulin. Insulin sliding scale. Accu-Cheks ACH S. All meds on hold #Chronic anemia: Stable. hb is 9.6 #Paroxysmal A. fib: Rate controlled. On cardizem. On aspirin for stroke prophylaxis #Debility due to heart failure and recurrent pleural effusion: PT OT on board. DVT prophylaxis: SCDs. DispositionL: dc home once oxygen requirements are down to his baseline Charges/Coding Visit Charges Inpatient E&M: 97421 Subs Hosp L2
[2021-12-12] MEDS: Lisinopril 5 MG Tablet PO (14:38)
[2021-12-12] MEDS: dilTIAZem CD 120 MG Capsule PO ×2 (14:40→18:43)
--- NOTE | 2021-12-12 15:07 | PN.CC_ITS ---
Assessment & Plan Assessment/Plan (1) Pleural effusion, left: PLAN: Plan RECOMMENDATIONS: 1. Continue trach collar oxygen to maintain saturations at or above 90%. 2. Obtain follow-up chest x-ray to evaluate for pleural fluid reaccumulation in 2 weeks. 3. Continue diuresis as tolerated by hemodynamics and renal function. 4. Continue antimicrobials to complete treatment course. 5. Encourage ambulation as tolerated IMPRESSIONS: 1. Recurrent transudative pleural effusion The patient has had several hospital admissions with a recurrent pleural effusion, which according to the pleural fluid analysis during this hos pitalization, is borderline exudative based on total protein levels. However, the total protein levels are likely elevated due to his ongoing diuresis in the setting of congestive heart failure. Pleural fluid cultures have not demonstrated any growth. Repeat cytology was negative. Pattern is not consistent with parapneumonic effusion at this time. Patient will likely need a chest x-ray in 2 to 3 weeks to see if an outpatient thoracentesis is necessary. Did stressed the role of a low-salt diet to avoid rapid reaccumulation. 2. Dysphagia secondary to esophageal stricture Patient with EGD and dilation today. Patient appears to be tolerating this well. Defer to GI on possible outpatient work-up for fatty liver disease 3. History of laryngeal CA status post tracheostomy/morbid obesity/hypothyroidism/COPD/chronic respiratory failure/paroxysmal atrial fibrillation Complicates care, management, recovery and prognosis. Continue home medications as indicated. This note was generated with [employer] dictation software. It may contain incorrect words, spelling, and punctuation that were not noted in checking the note before signing. Subjective Subjective Patient did okay overnight. No acute issues were reported. Patient is still requiring 8 to 10 L by trach mask to maintain saturations. Patient states he is typically on 3 to 4 L/min. Patient did have an EGD with esophageal dilation and reportedly tolerated this well. Patient is not reporting any chest pain at this time. Objective Data Objective Data Vital Signs: Vital Signs Temp Pulse Resp BP Pulse Ox O2 Del Method O2 Flow Rate 36.6 C 92 18 107/69 100 Trach Collar 6 12/12/21 12:38 12/12/21 13:27 12/12/21 13:27 12/12/21 12:38 12/12/21 12:38 12/12/21 12:38 12/12/21 12:38 FiO2 35 12/12/21 12:14 Oxygen Flow Rate (L/min) [4] 8 Oxygen Flow Rate (L/min) [3] 8 Oxygen Flow Rate (L/min) [2] 8 Oxygen Flow Rate (L/min) [1 ( 8 Initial Baseline)] Oxygen Flow Rate (L/min) 6 Oxygen Delivery Method [4] Nasal Cannula Oxygen Delivery Method [3] Trach Collar Oxygen Delivery Method [2] Trach Collar Oxygen Delivery Method [1 ( Trach Collar Initial Baseline)] Oxygen Delivery Method Trach Collar Weight: 139.8 kg Body Mass Index (BMI) 41.5 Intake & Output: Intake and Output for Last 24 Hours 12/11/21 12/11/21 12/12/21 00:59 23:59 23:59 Intake Total 100 / 100 Output Total 0 / 0 Balance 100 / 100 Lab / Micro Data Attestation: I reviewed the patient's lab results. Result Diagrams: 12/12/21 06:42 12/12/21 06:42 Labs: Laboratory Results - last 24 hr 12/11/21 16:43: POC Glucose 120 H 12/11/21 21:28: POC Glucose 125 H 12/12/21 06:33: POC Glucose 125 H 12/12/21 06:42: WBC 5.0, RBC 3.24 L, Hgb 9.2 L, Hct 28.4 L, MCV 87.7, MCH 28.4, MCHC 32.4, RDW Std Deviation 40.1, RDW Coeff of Alisson 12.4, Plt Count 355, MPV 9 .9, Immature Gran % (Auto) 0.200, Neut % (Auto) 64.6, Lymph % (Auto) 13.9 L, [place] % (Auto) 14.1 H, Eos % (Auto) 6.6 H, Baso % (Auto) 0.6, Absolute Neuts (auto) 3.3, Absolute Lymphs (auto) 0.70 L, Nucleated RBC % 0 12/12/21 06:42: Sodium 133 L, Potassium 4.2, Chloride 96 L, Carbon Dioxide 31.0, Anion Gap 6, BUN 48 H, Creatinine 1.94 H, Estim Creat Clear Calc 39.89, Est GFR (MDRD) Af Amer 45 L, Est GFR (MDRD) Non-Af 37 L, BUN/Creatinine Ratio 24.7 H, Glucose 114 H, Calcium 8.3 L 12/12/21 12:44: POC Glucose 103 Micro: Microbiology 12/07/21 11:02 Fluid - Thoracentesis Fluid Gram Stain - Final 12/07/21 11:02 Fluid - Thoracentesis Fluid Body Fluid Culture - Final Culture exhibits no growth. 12/07/21 11:02 Fluid - Thoracentesis Fluid Anaerobic Culture - Final No growth in 5 days. 12/06/21 20:57 Sputum, Induced/Lukens Gram Stain - Final 12/06/21 20:57 Sputum, Induced/Lukens Respiratory Culture - Final Proteus mirabilis 12/07/21 04:14 Urine, Random Legionella Antigen - Final 12/07/21 04:14 Urine, Random Streptococcus pneumoniae Antigen (M - Final 12/06/21 17:51 Mucosa - Nasopharyngeal Respiratory Panel (PCR) - Final 12/06/21 12:20 Nasal Secretion SARS-CoV-2 & FLU Antigen (Rapid) - Final Physical Exam Const alert, oriented x3 and no apparent distress Constitutional Narrative: Morbidly obese. Sitting in bedside recliner. General Appearance: cooperative; Negative for ill appearing HEENT normocephalic and head/scalp atraumatic Eyes PERRL, EOMs intact bilaterally and conjunctivae normal Neck supple Neck Narrative: Stable tracheostomy site. General: trachea midline Chest inspection of chest normal Resp normal respiratory effort Auscultation: diminished lung sounds; Negative for rales, rhonchi or wheezes Cardio regular rate, regular rhythm, S1 normal heart sound, S2 normal heart sound, no murmurs, no rub and no gallops GI normal to inspection, nondistended, normoactive bowel sounds Extremity General Extremity: edema bilateral (2+ bilateral) lower extremity; Negative for clubbing Skin no rashes or lesions noted Neuro oriented x3, moves all extremities and no focal motor deficits Psych cooperative and affect normal Charges/Coding Visit Charges Inpatient E&M: 31180 Subs Hosp L2
[2021-12-12 16:45] LABS: Bedside Glucose 127 mg/dL (74-106)
[2021-12-12] MEDS: Insulin Glargine-YFGN 100 UNIT/ML Pen 36 UNIT SC (21:51)
[2021-12-12] MEDS: Atorvastatin Calcium 40 MG Tablet PO (21:51)
[2021-12-12] MEDS: MELATONIN 10 MG TABLET 20 MG PO (21:51)
[2021-12-12] MEDS: Aspirin 325 MG Tablet PO (22:19)
[2021-12-13] VITALS (12 sets, daily range): BP systolic 105–123; BP diastolic 56–62; PULSE 61–90; RESP 15–18; TEMP 36.6–37.1; O2SAT 96–100
[2021-12-13 00:11] LABS: Bedside Glucose 129 mg/dL (74-106)
[2021-12-13] MEDS: Levothyroxine 150 MCG Tablet PO (06:44)
--- NOTE | 2021-12-13 07:00 | PCM.PROGNOTE ---
Subjective Subjective Patient underwent an upper endoscopy yesterday for esophageal dysphagia. His swallowing is a lot better after undergoing esophageal dilation of his extrinsic compression secondary to his tracheostomy. Objective Data Objective Data Vital Signs: Vital Signs Temp Pulse Resp BP Pulse Ox O2 Del Method O2 Flow Rate 98.7 F 85 18 105/62 98 Trach Collar 2 12/13/21 12:46 12/13/21 13:34 12/13/21 13:34 12/13/21 12:46 12/13/21 13:01 12/13/21 12:46 12/13/21 13:01 FiO2 30 12/13/21 12:45 Oxygen Flow Rate (L/min) [4] 8 Oxygen Flow Rate (L/min) [3] 8 Oxygen Flow Rate (L/min) [2] 8 Oxygen Flow Rate (L/min) [1 ( 8 Initial Baseline)] Oxygen Flow Rate (L/min) [ 2 AMBULATING with Oxygen #1] Oxygen Flow Rate (L/min) [At 2 REST with Oxygen] Oxygen Flow Rate (L/min) 2 Oxygen Delivery Method [4] Nasal Cannula Oxygen Delivery Method [3] Trach Collar Oxygen Delivery Method [2] Trach Collar Oxygen Delivery Method [1 ( Trach Collar Initial Baseline)] Oxygen Delivery Method Trach Collar Weight: 305 lb 12.498 oz Body Mass Index (BMI) 41.5 Intake & Output: Intake and Output for Last 24 Hours 12/11/21 12/12/21 12/13/21 23:59 23:59 23:59 Intake Total 268.5 / 268.5 170 / 170 Output Total 0 / 0 Balance 268.5 / 268.5 170 / 170 Lab / Micro Data Result Diagrams: 12/13/21 05:50 12/13/21 05:50 Labs: Laboratory Results - last 24 hr 12/12/21 16:20: POC Glucose 127 H 12/12/21 21:47: POC Glucose 129 H 12/13/21 05:50: WBC 3.7 L, RBC 3.33 L, Hgb 9.6 L, Hct 29.6 L, MCV 88.9, MCH 28.8, MCHC 32.4, RDW Std Deviation 40.9, RDW Coeff of Alisson 12.5, Plt Count 346, MPV 9.9, Immature Gran % (Auto) 0.300, Neut % (Auto) 50.4, Lymph % (Auto) 21.4, [place] % (Auto) 18.6 H, Eos % (Auto) 8.5 H, Baso % (Auto) 0.8, Absolute Neuts (auto) 1.8 L, Absolute Lymphs (auto) 0.78 L, Nucleated RBC % 0 12/13/21 05:50: Sodium 135 L, Potassium 4.4, Chloride 96 L, Carbon Dioxide 35.0 H, Anion Gap 4 L, BUN 48 H, Creatinine 1.89 H, Estim Creat Clear Calc 40.95, Est GFR (MDRD) Af Amer 46 L, Est GFR (MDRD) Non-Af 38 L, BUN/Creatinine Ratio 25.4 H, Glucose 73 L, Calcium 8.4 L 12/13/21 06:41: POC Glucose 64 L 12/13/21 07:03: POC Glucose 79 12/13/21 11:41: POC Glucose 176 H 12/13/21 13:09: POC Glucose 159 H Micro: Microbiology 12/07/21 11:02 Fluid - Thoracentesis Fluid Gram Stain - Final 12/07/21 11:02 Fluid - Thoracentesis Fluid Body Fluid Culture - Final Culture exhibits no growth. 12/07/21 11:02 Fluid - Thoracentesis Fluid Anaerobic Culture - Final No growth in 5 days. 12/06/21 20:57 Sputum, Induced/Lukens Gram Stain - Final 12/06/21 20:57 Sputum, Induced/Lukens Respiratory Culture - Final Proteus mirabilis 12/07/21 04:14 Urine, Random Legionella Antigen - Final 12/07/21 04:14 Urine, Random Streptococcus pneumoniae Antigen (M - Final 12/06/21 17:51 Mucosa - Nasopharyngeal Respiratory Panel (PCR) - Final 12/06/21 12:20 Nasal Secretion SARS-CoV-2 & FLU Antigen (Rapid) - Final Physical Exam Const alert, oriented x3 and no apparent distress General Appearance: cooperative, comfortable and well kempt Orientation / Consciousness: awake Exam Limitations: no limitations HEENT head/scalp atraumatic, moist oral mucous membranes and oropharynx normal Mouth: oral and palatal mucosa normal Eyes PERRL and EOMs intact bilaterally Neck no lymphadenopathy, supple and no JVD Resp Resp Narrative: diminished breath sounds bibasally, no wheezes or crackles. On 4L of oxygen via tracheostomy Cardio regular rate, regular rhythm, S1 normal heart sound, S2 normal heart sound and no murmurs GI normal to inspection, nondistended, normoactive bowel sounds, soft to palpation, non-tender and non-distended Extremity normal to inspection, full ROM and no clubbing, cyanosis or edema Skin no rashes or lesions noted Neuro oriented x3, CN's II-XII intact bilaterally, moves all extremities and no focal motor deficits Sensorium / Orientation: awake and alert Motor Exam: strength 5/5 throughout Psych affect normal Assessment & Plan Assessment/Plan (1) Dysphagia: PLAN: Status post dilation of extrinsic compression in his proximal esophagus. It is improved after dilation with a 54 [place] savory dilator. He will likely need for the empiric dilations in the future. I will have him follow-up in office so we can get a repeat barium esophagram so we can measure the improvement of his esophagus with dilation. Charges/Coding Visit Charges Inpatient E&M: 35006 Subs Hosp L2
[2021-12-13] MEDS: Budesonide Respules 0.5 MG/2 ML AMPUL.NEB. INHALATION (07:03)
[2021-12-13] MEDS: Ipratropium/Albuterol Sulfate 3 ML AMPUL.NEB INHALATION ×2 (07:04→13:33)
[2021-12-13 07:27] LABS: Absolute Lymphocyte Count 0.78 X10^3/uL (0.83-4.51); Absolute Neutrophil Count 1.8 X10^3/uL (2.0-7.7); Basophil# 0.03 X10^3/uL; Basophil% 0.8 % (0-1); Eosinophil# 0.31 X10^3/uL; Eosinophils% 8.5 % (0-5); Hematocrit 29.6 % (40-54); Hemoglobin 9.6 g/dL (13.0-16.5); Lymphocyte # 0.78 X10^3/ul (0.83-4.51); Lymphocyte % 21.4 % (19-41); Mean Corp Hgb Conc 32.4 g/dL (32-36); Mean Corpuscular Hgb 28.8 pg (27.0-32.0); Mean Corpuscular Volume 88.9 fL (80-94); Mean Platelet Vol. 9.9 fl (6.2-12.0); Monocyte# 0.68 X10^3/uL; Monocyte% 18.6 % (0-10); NRBC Flagged by Analyzer 0 % (0-5); Neutrophil # 1.84 X10^3/uL (2.7-7.7); Neutrophil % 50.4 % (47-70); Platelet Count 346 K/mm3 (150-450); RBC Distribution Width CV 12.5 % (11.6-14.6); RBC Distribution Width SD 40.9 fl (35.1-43.9); Red Blood Count 3.33 M/mm3 (4.6-6.2); White Blood Count 3.7 K/mm3 (4.4-11.0)
[2021-12-13 07:40] LABS: Bedside Glucose 64 mg/dL (74-106)
[2021-12-13 07:40] LABS: Bedside Glucose 79 mg/dL (74-106)
[2021-12-13 07:55] LABS: Anion Gap 4 (5-15); BUN 48 mg/dL (7-18); BUN/Creat Ratio 25.4 RATIO (10-20); Calcium,Total 8.4 mg/dL (8.5-10.1); Chloride 96 mmol/L (98-107); Creatinine, Serum 1.89 mg/dL (0.70-1.30); EST Glomerular Filtration Rate 38 mL/min (>60); Est Glom Filt Rate - Afr Amer 46 mL/min (>60); Estimated Creatinine Clearance 40.95 ml/min; Glucose 73 mg/dL (74-106); Potassium 4.4 mmol/L (3.5-5.1); Sodium Level 135 mmol/L (136-145)
[2021-12-13] MEDS: Acetaminophen 325 MG Tablet 650 MG PO (08:21)
[2021-12-13] MEDS: guaiFENesin 1,200 MG Tablet 1200 MG PO (10:18)
[2021-12-13] MEDS: Pantoprazole Sodium 20 MG Tablet PO (10:18)
[2021-12-13] MEDS: Furosemide 40 MG/4 ML Vial IV (10:18)
[2021-12-13] MEDS: 0.9% Saline Lock 10 ML Syringe IV (10:22)
--- NOTE | 2021-12-13 10:31 | PN.CC_ITS ---
Assessment & Plan Assessment/Plan (1) Pleural effusion, left: PLAN: Plan RECOMMENDATIONS: 1. Continue trach collar oxygen to maintain saturations at or above 90%. 2. Obtain follow-up chest x-ray to evaluate for pleural fluid reaccumulation in 2 weeks. 3. Continue diuresis as tolerated by hemodynamics and renal function. 4. Continue antimicrobials to complete treatment course. 5. Encourage ambulation as tolerated and low-salt diet 6. Walking oximetry prior to discharge IMPRESSIONS: 1. Recurrent transudative pleural effusion The patient has had several hospital admissions with a recurrent pleural effusion, which according to the pleural fluid analysis during this hospitalization, is borderline exudative based on total protein levels. However, the total protein levels are likely elevated due to his ongoing diuresis in the setting of congestive heart failure. Pleural fluid cultures have not demonstrated any growth. Repeat cytology was negative. Pattern is not consistent with parapneumonic effusion at this time. Patient will likely need a chest x-ray in 2 to 3 weeks to see if an outpatient thoracentesis is necessary. Did stressed the role of a low-salt diet to avoid rapid reaccumulation. 2. Dysphagia secondary to esophageal stricture Patient with EGD and dilation today. Patient appears to be tolerating this well. Defer to GI on possible outpatient work-up for fatty liver disease 3. History of laryngeal CA status post tracheostomy/morbid ob esity/hypothyroidism/COPD/chronic respiratory failure/paroxysmal atrial fibrillation Complicates care, management, recovery and prognosis. Continue home medications as indicated. This note was generated with [employer] dictation software. It may contain incorrect words, spelling, and punctuation that were not noted in checking the note before signing. Subjective Subjective Patient did well overnight. No acute issues are reported. Patient reports no subjective change following thoracentesis. Patient is not reporting any chest pain. Objective Data Objective Data Vital Signs: Vital Signs Temp Pulse Resp BP Pulse Ox O2 Del Method O2 Flow Rate 37.1 C 90 15 105/62 100 Trach Collar 2 12/13/21 10:03 12/13/21 10:03 12/13/21 10:03 12/13/21 10:03 12/13/21 10:03 12/13/21 10:03 12/13/21 10:03 FiO2 30 12/13/21 07:08 Oxygen Flow Rate (L/min) [4] 8 Oxygen Flow Rate (L/min) [3] 8 Oxygen Flow Rate (L/min) [2] 8 Oxygen Flow Rate (L/min) [1 ( 8 Initial Baseline)] Oxygen Flow Rate (L/min) 2 Oxygen Delivery Method [4] Nasal Cannula Oxygen Delivery Method [3] Trach Collar Oxygen Delivery Method [2] Trach Collar Oxygen Delivery Method [1 ( Trach Collar Initial Baseline)] Oxygen Delivery Method Trach Collar Weight: 138.7 kg Body Mass Index (BMI) 41.5 Intake & Output: Intake and Output for Last 24 Hours 12/11/21 12/12/21 12/13/21 23:59 23:59 23:59 Intake Total 268.5 / 268.5 Output Total 0 / 0 Balance 268.5 / 268.5 Lab / Micro Data Attestation: I reviewed the patient's lab results. Result Diagrams: 12/13/21 05:50 12/13/21 05:50 Labs: Laboratory Results - last 24 hr 12/12/21 12:44: POC Glucose 103 12/12/21 16:20: POC Glucose 127 H 12/12/21 21:47: POC Glucose 129 H 12/13/21 05:50: WBC 3.7 L, RBC 3.33 L, Hgb 9.6 L, Hct 29.6 L, MCV 88.9, MCH 28.8, MCHC 32.4, RDW Std Deviation 40.9, RDW Coeff of Alisson 12.5, Plt Count 346, M PV 9.9, Immature Gran % (Auto) 0.300, Neut % (Auto) 50.4, Lymph % (Auto) 21.4, [place] % (Auto) 18.6 H, Eos % (Auto) 8.5 H, Baso % (Auto) 0.8, Absolute Neuts (auto) 1.8 L, Absolute Lymphs (auto) 0.78 L, Nucleated RBC % 0 12/13/21 05:50: Sodium 135 L, Potassium 4.4, Chloride 96 L, Carbon Dioxide 35.0 H, Anion Gap 4 L, BUN 48 H, Creatinine 1.89 H, Estim Creat Clear Calc 40.95, Est GFR (MDRD) Af Amer 46 L, Est GFR (MDRD) Non-Af 38 L, BUN/Creatinine Ratio 25.4 H , Glucose 73 L, Calcium 8.4 L 12/13/21 06:41: POC Glucose 64 L 12/13/21 07:03: POC Glucose 79 Micro: Microbiology 12/07/21 11:02 Fluid - Thoracentesis Fluid Gram Stain - Final 12/07/21 11:02 Fluid - Thoracentesis Fluid Body Fluid Culture - Final Culture exhibits no growth. 12/07/21 11:02 Fluid - Thoracentesis Fluid Anaerobic Culture - Final No growth in 5 days. 12/06/21 20:57 Sputum, Induced/Lukens Gram Stain - Final 12/06/21 20:57 Sputum, Induced/Lukens Respiratory Culture - Final Proteus mirabilis 12/07/21 04:14 Urine, Random Legionella Antigen - Final 12/07/21 04:14 Urine, Random Streptococcus pneumoniae Antigen (M - Final 12/06/21 17:51 Mucosa - Nasopharyngeal Respiratory Panel (PCR) - Final 12/06/21 12:20 Nasal Secretion SARS-CoV-2 & FLU Antigen (Rapid) - Final Physical Exam Const alert, oriented x3 and no apparent distress Constitutional Narrative: Morbidly obese. Sitting in bedside recliner. General Appearance: cooperative; Negative for ill appearing HEENT normocephalic and head/scalp atraumatic Eyes PERRL, EOMs intact bilaterally and conjunctivae normal Neck supple Neck Narrative: Stable tracheostomy site. General: trachea midline Chest inspection of chest normal Resp normal respiratory effort Auscultation: diminished lung sounds; Negative for rales, rhonchi or wheezes Percussion: Negative for dullness Cardio regular rate, regular rhythm, S1 normal heart sound, S2 normal heart sound, no murmurs, no rub and no gallops GI normal to inspection, nondistended, normoactive bowel sounds Extremity no clubbing, cyanosis or edema General Extremity: edema bilateral (2+ bilateral) lower extremity; Negative for clubbing Skin no rashes or lesions noted Neuro oriented x3, moves all extremities and no focal motor deficits Psych cooperative and affect normal Charges/Coding Visit Charges Inpatient E&M: 53292 Subs Hosp L2
[2021-12-13] MEDS: Ceftriaxone 1 GM/50 ML BAG IV (10:34)
[2021-12-13] MEDS: dilTIAZem CD 120 MG Capsule PO (10:34)
[2021-12-13] MEDS: Insulin Lispro 100 UNIT/ML INSULN.PEN SC (11:43)
[2021-12-13 12:05] LABS: Bedside Glucose 176 mg/dL (74-106)
[2021-12-13] MEDS: Insulin Lispro 100 UNIT/ML INSULN.PEN 10 UNIT SC (13:10)
--- NOTE | 2021-12-13 13:19 | CASEMGMT ---
Pt tested on 2L at rest and 2L w/ exertion and pt does not qualify for increased home oxygen at discharge. Pt is up independently and states no concerns with going home at time of discharge. Pt declines need for any further therapy. Juli TAVARSE CM
--- NOTE | 2021-12-13 13:23 | DS.PCM_ITS ---
Providers Date of Admission: 12/06/21 Date of Discharge: 12/13/21 Primary Care Physician: Dr. Chinmay Sin MD Consultations 12/09/21 07:41 Consult: Gastroenterology Routine Consulting Provider: [facility] Reason for Consult: dysphagia EMERGENT Consult: No Notified: Yes Date Notified: 12/09/21 Time Notified: 07:42 Method of Notification: Text 12/11/21 07:48 Consult: Transport Analyst / Pulmonary Medicine Routine Consulting Provider: Pulmonary Medicine rob [place] Reason for Consult: recurrent left pleural effusion EMERGENT Consult: No Notified: Yes Date Notified: 12/11/21 Time Notified: 07:49 Method of Notification: Text Reason For Visit: PLEURAL EFFUSION, ? PNA Diagnosis Discharge Diagnosis (1) Pleural effusion, left: Status: Acute Code(s): J90 - Pleural effusion, not elsewhere classified Plan Acute on chronic HFpEF with recurrent pleural effusion * S/p left-sided thoracentesis. * Being diuresed with IV lasix and metolazone. Monitor intake and output. Fluid restriction to 1500 cc daily. * Fluid analysis showed that it was a transudate * #Acute on chronic hypoxic respiratory failure * Patient is usually on 2 to 4 L of oxygen at home. Patient now on 8 L of oxygen at 30% FiO2 via his trach. * He has had recurrent pleural effusions thought to be due to acute on chronic heart failure. He is also on IV antibiotics for gram-negative community- acquired pneumonia. * Pulmonology consulted. * Repeated x-ray ordered showed no significant interval change. Showed a stable opacification in the inferior half of the left hemithorax which was unchanged. * Continue current antibiotics-IV ceftriaxone * oxygen requirements improving gradually. * #Recurrent left-sided pleural effusion: As above. #Gram-negative community-acquired pneumonia: * Sputum culture with Proteus mirabilis. * On iV rocephin. #Dysphagia: * Thought to be related to his laryngeal cancer. * GI on board. * for EGD today: it showed benign appearing esophageal stenosis which was dilated and normal stomach as well as no gross lesions in second portion of the duodenum #History of laryngeal carcinoma s/p tracheostomy: Stable #Hypothyroidism: On Synthroid #Hypertension: on lisinopril. #Type 2 diabetes mellitus: On long-acting insulin. Insulin sliding scale. Accu-Cheks ACH S. All meds on hold #Chronic anemia: Stable. hb is 9.6 #Paroxysmal A. fib: Rate controlled. On cardizem. On aspirin for stroke prophylaxis #Debility due to heart failure and recurrent pleural effusion: PT OT on board. DVT prophylaxis: SCDs. DispositionL: dc home once oxygen requirements are down to his baseline Medications at Discharge Home Medications levothyroxine 150 mcg tablet 150 mcg PO DAILY hypothyroidism 06/04/14 atorvastatin 40 mg tablet 40 mg PO DAILY@1700 cholesterol 04/12/17 ipratropium 0.5 mg-albuterol 3 mg (2.5 mg base)/3 mL nebulization soln 3 ml inhalation Q6H sob 04/12/17 flash glucose sensor (FreeStyle Zayra 2 Sensor kit) #2 ea 05/17/21 diltiazem HCl 120 mg capsule,extended release 24 hr 120 mg PO BIDCM #60 caps 10/28/21 insulin detemir U-100 100 unit/mL (3 mL) subcutaneous pen (Levemir FlexTouch U- 100 Insulin) 25 unit subcut BID DIABETES 11/07/21 lisinopril 5 mg tablet 5 mg PO DAILY BLOOD PRESSURE 11/07/21 metolazone 2.5 mg tablet 2.5 mg PO MOWEFR EDEMA 11/07/21 Vitamin B-12 1 tab PO/SL DAILY SUPPLEMENT 12/06/21 acetaminophen 325 mg tablet 650 mg PO DAILY PAIN 12/06/21 budesonide 0.5 mg/2 mL suspension for nebulization (Pulmicort) 0.5 mg inhalation BID sob 12/06/21 dulaglutide 4.5 mg/0.5 mL subcutaneous pen injector (Trulicity) 4.5 mg subcut FR DIABETES 12/06/21 furosemide 40 mg tablet 40 mg PO 0900,1700 EDEMA 12/06/21 guaifenesin 600 mg tablet, extended release 12 hr (Mucinex) 600 mg PO DAILY PRN Congestion 12/06/21 melatonin 10 mg tablet 20 mg PO QHS SLEEP 12/06/21 metformin 500 mg tablet,extended release 24 hr 500 mg PO 0900,1700 DIABETES 12/06/21 omeprazole 20 mg capsule,delayed release 20 mg PO DAILY GERD 12/06/21 Hospital Course Operations None Procedures 2-D Echocardiogram Summary of Care Provided Minutes Spent on Discharge: 50 Hospital Course: Patient is a 66 y/o male with a PMH as outlined who was admitted via the ED on 12/06/2021 with a complaint of shortness of breath, which was exacerbated by exertion. He had been seen in the ED ~ 2 weeks prior and had thoracentesis then. Pleural effusion was thought to be due to heart failure with HFpEF. CXR showed recurrent left sided pleural effusion. BNP was also elevated. He was admitted and managed for acute on chronic heart failure with preserved ejection fraction. He was diuresed and thoracentesis ordered. He did have thoracentesis with fluid analysis showing was a transudate. Patient was also treated for community-acquired pneumonia due to Proteus mirabilis and he completed a course of IV ceftriaxone and azithromycin. Hospital course was complicated by dysphagia and GI was consulted. He did have EGD which showed esophageal stenosis which was dilated. Hospital course was complicated by increasing oxygen requirements and pulmonology was consulted. He was continued on breathing treatments and diuretics. His oxygen requirements gradually trended down to his baseline. He remained stable and was discharged on 12/13/2021 and is follow-up with his primary care doctor and pulmonology. Patient seen and examined prior to discharge. He felt much better and had an uneventful night. Review of systems otherwise negative. Labs and vitals reviewed. Medication reviewed and reconciled. Physical Exam Const alert, oriented x3 and no apparent distress General Appearance: cooperative, comfortable and well kempt Orientation / Consciousness: awake Exam Limitations: no limitations HEENT head/scalp atraumatic, moist oral mucous membranes and oropharynx normal Mouth: oral and palatal mucosa normal Eyes PERRL and EOMs intact bilaterally Neck no lymphadenopathy, supple and no JVD Resp Resp Narrative: diminished breath sounds bibasally, no wheezes or crackles. On 4L of oxygen via tracheostomy Cardio regular rate, regular rhythm, S1 normal heart sound, S2 normal heart sound and no murmurs GI normal to inspection, nondistended, normoactive bowel sounds, soft to palpation, non-tender and non-distended Extremity normal to inspection, full ROM and no clubbing, cyanosis or edema Skin no rashes or lesions noted Neuro oriented x3, CN's II-XII intact bilaterally, moves all extremities and no focal motor deficits Sensorium / Orientation: awake and alert Motor Exam: strength 5/5 throughout Psych affect normal Weight / BMI Weight Weight: 305 lb 12.498 oz Body Mass Index (BMI) 41.5 ABG / Lab / Microbiology Data Result Diagrams: 12/13/21 05:50 12/13/21 05:50 Laboratory: Laboratory Results - last 24 hr 12/12/21 16:20: POC Glucose 127 H 12/12/21 21:47: POC Glucose 129 H 12/13/21 05:50: WBC 3.7 L, RBC 3.33 L, Hgb 9.6 L, Hct 29.6 L, MCV 88.9, MCH 28.8, MCHC 32.4, RDW Std Deviation 40.9, RDW Coeff of Alisson 12.5, Plt Count 346, MPV 9.9, Immature Gran % (Auto) 0.300, Neut % (Auto) 50.4, Lymph % (Auto) 21.4, [place] % (Auto) 18.6 H, Eos % (Auto) 8.5 H, Baso % (Auto) 0.8, Absolute Neuts (auto) 1.8 L, Absolute Lymphs (auto) 0.78 L, Nucleated RBC % 0 12/13/21 05:50: Sodium 135 L, Potassium 4.4, Chloride 96 L, Carbon Dioxide 35.0 H, Anion Gap 4 L, BUN 48 H, Creatinine 1.89 H, Estim Creat Clear Calc 40.95, Est GFR (MDRD) Af Amer 46 L, Est GFR (MDRD) Non-Af 38 L, BUN/Creatinine Ratio 25.4 H , Glucose 73 L, Calcium 8.4 L 12/13/21 06:41: POC Glucose 64 L 12/13/21 07:03: POC Glucose 79 12/13/21 11:41: POC Glucose 176 H Microbiology: Microbiology 12/07/21 11:02 Fluid - Thoracentesis Fluid Gram Stain - Final 12/07/21 11:02 Fluid - Thoracentesis Fluid Body Fluid Culture - Final Culture exhibits no growth. 12/07/21 11:02 Fluid - Thoracentesis Fluid Anaerobic Culture - Final No growth in 5 days. 12/06/21 20:57 Sputum, Induced/Lukens Gram Stain - Final 12/06/21 20:57 Sputum, Induced/[place]ukens Respiratory Culture - Final Proteus mirabilis 12/07/21 04:14 Urine, Random Legionella Antigen - Final 12/07/21 04:14 Urine, Random Streptococcus pneumoniae Antigen (M - Final 12/06/21 17:51 Mucosa - Nasopharyngeal Respiratory Panel (PCR) - Final 12/06/21 12:20 Nasal Secretion SARS-CoV-2 & FLU Antigen (Rapid) - Final D/C Instructions Discharge Diet: Low fat / Low cholesterol Discharge Activity: Return to Normal Activity Weight Bearing Status: Weight bearing as tolerated Call your doctor if you observe: Shortness of breath, Dizziness, Swelling in the ankles, Chest pain and Increased palpitations (irregular heartbeat) Meaningful Use Info Meaningful Use Diagnoses (Choose all that apply): CHF CHF REBECCA/ARB ordered at discharge?: Yes Documented LVEF (%): 55 Discharge Plan Admission Admit Date/Time: 12/06/21 15:40 Primary Reason for Your Visit: recurrent pleural effusion Attending Provider: Bridgett Dale Primary Care Provider: Chinmay Sin Consulting Providers: Eunice Melgar ; Himanshu Larose ; Beatris Dumont ; Maxi Doan ; Ke Grace ; Elio Zhong ; Vladimir Avitia ; Laura Hernández CHIEF CATALYST OPERATOR Discharge Orders/Prescriptions Prescriptions: Continued lisinopril 5 mg tablet 5 mg PO DAILY Levemir FlexTouch U-100 Insuln 100 unit/mL (3 mL) insulin pen 25 unit subcut BID metolazone 2.5 mg tablet 2.5 mg PO MOWEFR levothyroxine 150 MCG tablet 150 mcg PO DAILY Label Comments: thyroid atorvastatin 40 MG tablet 40 mg PO DAILY@1700 ipratropium-albuterol 3 ML solution for nebulization 3 ml inhalation Q6H Label Comments: breathing diltiazem HCl 120 mg Capsule,Extended Release 24hr 120 mg PO BIDCM Qty: 60 0RF Rx Instructions: Hold for heart less than 60 or systolic blood pressure less than 100 mmHg. acetaminophen 325 mg Tablet 650 mg PO DAILY omeprazole 20 mg capsule,delayed release(DR/EC) 20 mg PO DAILY Label Comments: TAKE 1 CAPSULE BY MOUTH ONCE DAILY melatonin 10 mg Tablet 20 mg PO QHS guaifenesin [Mucinex] 600 mg Tablet Extended Release 12hr 600 mg PO DAILY PRN (Reason: Congestion) Vitamin B-12 1 tab PO/SL DAILY furosemide 40 mg tablet 40 mg PO 0900,1700 metformin 500 mg tablet extended release 24 hr 500 mg PO 0900,1700 Trulicity 4.5 mg/0.5 mL pen injector 4.5 mg subcut FR budesonide [Pulmicort] 0.5 mg/2 mL Suspension For Nebulization 0.5 mg INHALATION BID (DME) [employer] Zayra 2 Sensor Kit See Rx Instructions .ROUTE .MEDSUPPLY Qty: 2 6RF Rx Instructions: As directed Referrals / Follow Up: Ke Grace DO [Med Staff - Active Staff] - 01/09/22 9:45 am Chinmay Sin MD [Primary Care Provider] - 12/15/21 9:40 am Disposition Disposition (needs filled in before D/C Order can be placed): Home, Self Care Charges/Coding Visit Charges Inpatient E&M: 07556 Disch Hosp
[2021-12-13 13:30] LABS: Bedside Glucose 159 mg/dL (74-106)
--- NOTE | 2021-12-13 13:47 | PHA.DC.MR ---
Pharmacy Service has performed discharge medication reconciliation for this patient. The patient's discharge medication list was reviewed for discrepancies and discrepancies were resolved. Home Medications levothyroxine 150 mcg tablet 150 mcg PO DAILY hypothyroidism 06/04/14 atorvastatin 40 mg tablet 40 mg PO DAILY@1700 cholesterol 04/12/17 ipratropium 0.5 mg-albuterol 3 mg (2.5 mg base)/3 mL nebulization soln 3 ml inhalation Q6H sob 04/12/17 flash glucose sensor (FreeStyle Zayra 2 Sensor kit) #2 ea 05/17/21 diltiazem HCl 120 mg capsule,extended release 24 hr 120 mg PO BIDCM #60 caps 10/28/21 insulin detemir U-100 100 unit/mL (3 mL) subcutaneous pen (Levemir FlexTouch U-100 Insulin) 25 unit subcut BID DIABETES 11/07/21 lisinopril 5 mg tablet 5 mg PO DAILY BLOOD PRESSURE 11/07/21 metolazone 2.5 mg tablet 2.5 mg PO MOWEFR EDEMA 11/07/21 Vitamin B-12 1 tab PO/SL DAILY SUPPLEMENT 12/06/21 acetaminophen 325 mg tablet 650 mg PO DAILY PAIN 12/06/21 budesonide 0.5 mg/2 mL suspension for nebulization (Pulmicort) 0.5 mg inhalation BID sob 12/06/21 dulaglutide 4.5 mg/0.5 mL subcutaneous pen injector (Trulicity) 4.5 mg subcut FR DIABETES 12/06/21 furosemide 40 mg tablet 40 mg PO 0900,1700 EDEMA 12/06/21 guaifenesin 600 mg tablet, extended release 12 hr (Mucinex) 600 mg PO DAILY PRN Congestion 12/06/21 melatonin 10 mg tablet 20 mg PO QHS SLEEP 12/06/21 metformin 500 mg tablet,extended release 24 hr 500 mg PO 0900,1700 DIABETES 12/06/21 omeprazole 20 mg capsule,delayed release 20 mg PO DAILY GERD 12/06/21
--- NOTE | 2021-12-13 16:00 | CASEMGMT ---
At discharge, pt now states that his pulse ox at home does not work properly. Pt provided with a pulse ox from [facility]. Juli TAVARES CM
== END 2021-12-13 16:15 | disposition home or self-care (01) | DRG 291 ==
LOC: ED 14:10 → PCU 16:28
PROVIDERS: Internal Medicine; Internal Medicine Gastroenterology; Admitting Provider Family Medicine; Emergency Provider Emergency Medicine; PCP Family Medicine; Visit Provider Student in an Organized Health Care Education/Training Program
PROC: 0DJ08ZZ Inspection of Upper Intestinal Tract, Via Natural or Artificial Opening Endoscopic (ICD-10-PCS; CPT 43235; principal; 2021-12-12 11:25)
DX: I13.0 Hypertensive heart and chronic kidney disease with heart failure and stage 1 through stage 4 chronic kidney disease, or unspecified chronic kidney disease (principal); J15.6 Pneumonia due to other Gram-negative bacteria; J96.21 Acute and chronic respiratory failure with hypoxia; I50.33 Acute on chronic diastolic (congestive) heart failure; J90 Pleural effusion, not elsewhere classified; Z68.41 Body mass index [BMI] 40.0-44.9, adult; Z93.0 Tracheostomy status; K22.2 Esophageal obstruction; E11.22 Type 2 diabetes mellitus with diabetic chronic kidney disease; E11.42 Type 2 diabetes mellitus with diabetic polyneuropathy; J43.9 Emphysema, unspecified; I48.0 Paroxysmal atrial fibrillation; E66.01 Morbid (severe) obesity due to excess calories; Z79.4 Long term (current) use of insulin; N18.31 Chronic kidney disease, stage 3a; I25.10 Atherosclerotic heart disease of native coronary artery without angina pectoris; E78.5 Hyperlipidemia, unspecified; E03.9 Hypothyroidism, unspecified; D64.9 Anemia, unspecified; Z79.51 Long term (current) use of inhaled steroids; Z79.82 Long term (current) use of aspirin; Z20.822 Contact with and (suspected) exposure to COVID-19; Z82.3 Family history of stroke; Z87.891 Personal history of nicotine dependence; Z79.84 Long term (current) use of oral hypoglycemic drugs; Z90.02 Acquired absence of larynx; R53.81 Other malaise; B96.4 Proteus (mirabilis) (morganii) as the cause of diseases classified elsewhere; Z85.21 Personal history of malignant neoplasm of larynx; R13.10 Dysphagia, unspecified
CPT/HCPCS: 31720; 32555; 36415; 71045; 71046; 80048; 80053; 80061; 82150; 82945; 82962; 83615; 83735; 83880; 83986; 84100; 84145; 84156; 84157; 84439; 84443; 84484; 85025; 87070; 87075; 87077; 87186; 87205; 87428; 87449; 87633; 87641; 88108; 88305; 88313; 89050; 92526; 92610; 93005; 94640; 97162; 97166; 97530; 97802; 99285; J7040; J7050; J7120; A4216; C1769; J1940; J2405

== ENCOUNTER 2021-12-25 13:25 | Inpatient (IN) | payer MEDICARE, SELFPAY ==
[2021-12-25] VITALS (11 sets, daily range): BP systolic 106–134; BP diastolic 58–79; PULSE 72–130; RESP 18–28; TEMP 36.3–37.2; O2SAT 92–96; BMI 41.8; BMI 42.1
[2021-12-25] MEDS: Ipratropium/Albuterol Sulfate 3 ML AMPUL.NEB INHALATION ×2 (13:52→20:25)
--- NOTE | 2021-12-25 13:56 | RAD_ITS ---
EXAM: XR CHEST, 2 VIEWS CLINICAL INDICATION: Dyspnea. TECHNIQUE: Frontal and lateral views of the chest. This report was created using [employer] report generation technology. COMPARISON: 12/11/2021. FINDINGS: LUNGS AND PLEURAL SPACES: Massive left subpulmonic fluid and worsening of compressive atelectasis in the bottom two thirds of the left lung. Normal right lung. Normal residual left upper lobe. No pneumothorax. HEART: Cardiomegaly is unchanged. MEDIASTINUM: Central airways and mediastinal contour are unremarkable. BONES/JOINTS: Unremarkable. SOFT TISSUES: Unremarkable. RAD/Chest PA and Lateral IMPRESSION: 1. Massive left subpulmonic fluid, worse since 12/11/2021. 2. Compressive atelectasis in the bottom two thirds of the left lung, worse since 12/11/2021. Electronically Signed: Geoff Rocha MD at 15:05 EST ,
--- NOTE | 2021-12-25 13:56 | EKG12_ITS ---
Test Reason : SOB Blood Pressure : / mmHG Vent. Rate : 102 BPM Atrial Rate : 064 BPM P-R Int : 000 ms QRS Dur : 086 ms QT Int : 338 ms P-R-T Axes : 000 023 166 degrees QTc Int : 440 ms Atrial fibrillation Low voltage QRS Abnormal ECG Confirmed by ALEXANDER LEDESMA MD ([id number]), communications editor ERON FUENTES ([id number]) on 12/27/2021 8:13:49 AM Referred By: SAYRA Confirmed By:ALEXANDER LEDESMA MD
--- NOTE | 2021-12-25 14:10 | EDS_ITS ---
HPI <PRABHU Benito - Last Filed: 12/25/21 17:33> History of Present Illness Chief Complaint: Shortness of Breath Narrative Narrative: 66-year-old male with PMH of HTN, HLD, DM2, CKD, A. fib, remote laryngeal cancer with tracheostomy, recurrent left pleural effusions presents with 2 days of gradual onset shortness of breath and dry cough. He wears 2 L during the day and 4 L O2 at night. He states it feels like when he needed paracentesis done before. Over the last few months he has developed recurrent left-sided pleural effusions and has been drained 3 times most recently on December 07 during admission. He did not know the cause of this but records show it is suspected to be secondary to CHF. He takes Lasix 40 mg twice daily but has had worsening lower extremity edema over the last month. 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 He is scheduled to see a equipment driver the first week of January. PFSH <PRABHU Benito - Last Filed: 12/25/21 17:33> [facility] Medical History (Updated 12/25/21 @ 22:[address] Bautista Ellis DO) (HFpEF) heart failure with preserved ejection fraction Acute hypercapnic respiratory failure Ambulates with cane Anxiety Atherosclerosis of coronary artery of [place] heart without angina pectoris Back pain Benign neoplasm of colon Cholelithiasis Chronic diastolic (congestive) heart failure Chronic pain Chronic renal failure, stage 3 (moderate) COPD (chronic obstructive pulmonary disease) COPD with acute exacerbation Diabetes Diabetes mellitus, type II Diverticulosis of colon (without mention of hemorrhage) Easy bruising Edema Emphysema, unspecified Esophageal dysmotility Essential hypertension Excessive bleeding Former smoker Gastric reflux Gastroenteritis Gout Hiatal hernia History of colon polyps History of renal disease History of steroid therapy History of stress test Hyperlipidemia Hypothyroidism Hypoxemia Injury of back Injury of head and neck Insomnia Irregular heart beat Kidney failure Laryngeal cancer Leg cramps Malignant neoplasm of head, neck and face Migraine headache Morbid obesity Morbid obesity Normal stress echocardiogram Obesity On home oxygen therapy Pleural effusion, left Polyneuropathy due to type 2 diabetes mellitus Shortness of breath Shortness of breath on exertion Thyroid disease Type 2 diabetes mellitus without complication Type 2 diabetes with stage 3 chronic kidney disease GFR 30-59 Walker as ambulation aid Wears glasses Home Medications levothyroxine 150 mcg tablet 150 mcg PO DAILY hypothyroidism 06/04/14 [History Last Taken 12/05/21] atorvastatin 40 mg tablet 40 mg PO DAILY@1700 cholesterol 04/12/17 [History Last Taken 12/05/21] ipratropium 0.5 mg-albuterol 3 mg (2.5 mg base)/3 mL nebulization soln 3 ml inhalation Q6H sob 04/12/17 [History Last Taken 12/06/21] flash glucose sensor (FreeStyle Zayra 2 Sensor kit) #2 ea 05/17/21 [Rx Last Taken Unknown] insulin detemir U-100 100 unit/mL (3 mL) subcutaneous pen (Levemir FlexTouch U- 100 Insulin) 25 unit subcut BID DIABETES 11/07/21 [History Last Taken 12/05/21] lisinopril 5 mg tablet 5 mg PO DAILY BLOOD PRESSURE 11/07/21 [History Last Taken 12/05/21] metolazone 2.5 mg tablet 2.5 mg PO MOWEFR EDEMA 11/07/21 [History Last Taken 12/05/21] acetaminophen 325 mg tablet 650 mg PO DAILY PRN Pain 12/06/21 [History Last Taken 12/05/21] budesonide 0.5 mg/2 mL suspension for nebulization (Pulmicort) 0.5 mg inhalation BID sob 12/06/21 [History Last Taken Unknown] dulaglutide 4.5 mg/0.5 mL subcutaneous pen injector (Trulicity) 4.5 mg subcut FR DIABETES 12/06/21 [History Last Taken 12/02/21] furosemide 40 mg tablet 40 mg PO 0900,1700 EDEMA 12/06/21 [History Last Taken 12/05/21] guaifenesin 600 mg tablet, extended release 12 hr (Mucinex) 600 mg PO DAILY PRN Congestion 12/06/21 [History Last Taken 12/05/21] melatonin 10 mg tablet 20 mg PO QHS SLEEP 12/06/21 [History Last Taken Unknown] metformin 500 mg tablet,extended release 24 hr 500 mg PO 0900,1700 DIABETES 12/06/21 [History Last Taken 12/05/21] omeprazole 20 mg capsule,delayed release 20 mg PO DAILY GERD 12/06/21 [History Last Taken 12/05/21] diltiazem HCl 120 mg capsule,extended release 24 hr 120 mg PO BID #180 caps 12/14/21 [Rx Last Taken Unknown] apixaban 5 mg tablet (Eliquis) 5 mg PO BID #60 tabs 12/15/21 [Rx Last Taken Unknown] cyanocobalamin (vitamin B-12) 2,500 mcg tablet 2,500 mcg PO DAILY supplement 12/15/21 [History Last Taken Unknown] Allergy/AdvReac Type Severity Reaction Status Date / Time egg [eggs] AdvReac Vomiting Verified 12/25/21 19:20 Family History Mother Diabetes Hypertension Kidney disease Heart failure Father CVA (cerebral vascular accident) Hypertension Heart disease ischemic Brother Diabetes Surgical History History of cardiac catheterization History of exploratory laparotomy History of laryngectomy (2007) History of thyroidectomy Hx of colonoscopy Presence of tracheostomy Social History Smoking Status: Former smoker Smokeless tobacco user: snuff how long ago did patient quit smokin years ago alcohol intake: never substance use type: does not use caffeine: Yes what type of physical activity do you participate in: none frequency: does not exercise ROS <PRABHU Benito - Last Filed: 12/25/21 17:33> ROS ED ROS Narrative Constitutional: Negative for fever, chills, malaise. Eyes: Negative for visual change. ENT: Negative for sore throat, ear pain, rhinorrhea. CVS: Negative for palpitations, chest pain, syncope. Respiratory: Positive for shortness of breath, cough. GI: Negative for abdominal pain, nausea, vomiting, diarrhea, constipation, melena, hematochezia. : Negative for dysuria, hematuria or frequency. Neuro: Negative for headache, motor/sensory dysfunction. Skin: Negative for rash, abscess, or wound. Musc: Negative for joint pain, swelling, trauma. Heme: Negative for easy bruising, bleeding, lymphadenopathy. EXAM <PRABHU Benito - Last Filed: 12/25/21 17:33> Physical Exam Narrative Exam Narrative: CONST: Patient sitting in no acute distress. EYES: Normal inspection. ENT: Normal inspection, moist mucous membranes. NECK: Normal inspection. Prior tracheostomy site, no JVD. RESP: No respiratory distress, decreased lung sounds left lower lobe. CVS: Regular rate and rhythm, no murmur, no gallop. SKIN: Color normal, no rash, warm, dry, intact. EXTREMITIES: Normal appearance, 2+ pedal edema to both knees. NEURO: Oriented x4. PSYCH: Normal affect. Const Vital Signs: 12/25/21 13:26 12/25/21 13:53 12/25/21 14:53 Temperature 97.4 F L Temperature Source Temporal Pulse Rate 130 H 110 H Respiratory Rate 28 H 23 H Respiratory Effort Short of Breath Respiratory Pattern Tachypnea Blood Pressure 133/71 H Blood Pressure Mean 91 Pulse Ox 93 Oxygen Delivery Method Room Air 12/25/21 15:04 12/25/21 16:00 12/25/21 17:00 Temperature Temperature Source Pulse Rate 90 85 81 Respiratory Rate 18 26 H 21 H Respiratory Effort Respiratory Pattern Blood Pressure 128/68 H 123/58 H 134/70 H Blood Pressure Mean 88 79 91 Pulse Ox 96 92 94 Oxygen Delivery Method Room Air Room Air Room Air 12/25/21 18:00 Temperature Temperature Source Pulse Rate 90 Respiratory Rate 20 H Respiratory Effort Respiratory Pattern Blood Pressure 106/79 Blood Pressure Mean 88 Pulse Ox 94 Oxygen Delivery Method Room Air <Dr. Bautista Ellis DO - Last Filed: 12/25/21 22:59> Physical Exam Const Vital Signs: 12/25/21 13:26 12/25/21 13:53 12/25/21 14:53 Temperature 97.4 F L Temperature Source Temporal Pulse Rate 130 H 110 H Respiratory Rate 28 H 23 H Respiratory Effort Short of Breath Respiratory Pattern Tachypnea Blood Pressure 133/71 H Blood Pressure Mean 91 Pulse Ox 93 Oxygen Delivery Method Room Air 12/25/21 15:04 12/25/21 16:00 12/25/21 17:00 Temperature Temperature Source Pulse Rate 90 85 81 Respiratory Rate 18 26 H 21 H Respiratory Effort Respiratory Pattern Blood Pressure 128/68 H 123/58 H 134/70 H Blood Pressure Mean 88 79 91 Pulse Ox 96 92 94 Oxygen Delivery Method Room Air Room Air Room Air 12/25/21 18:00 Temperature Temperature Source Pulse Rate 90 Respiratory Rate 20 H Respiratory Effort Respiratory Pattern Blood Pressure 106/79 Blood Pressure Mean 88 Pulse Ox 94 Oxygen Delivery Method Room Air MDM <PRABHU Benito - Last Filed: 12/25/21 17:33> [facility] Narrative Medical decision making narrative: Patient with history of CHF and recurrent left pleural effusions presents with 2 days of worsening dyspnea. Initially was in mild respiratory distress and was given a DuoNeb treatment per nursing staff. When I arrived he is able to speak in full sentences and is satting 94% or above on room air. He states typically he wears 2 L with walking and 4 L at night. He does have severely diminished lung sounds in the left lower lobe concerning for recurrent effusion. CXR shows massive left sided effusion worse from previous causing compressive atelectasis of the bottom two thirds of the lung. With ambulation he was not hypoxic but did feel lightheaded with heart rate in the 130s. Case was discussed with the hospitalist for admission for CHF exacerbation/recurrent left pleural effusion. Plan will be to hold Eliquis prior to procedure. Lab Data Attestation: I reviewed the patient's lab results. Labs: Laboratory Results - last 24 hr 12/25/21 12/25/21 12/25/21 13:45 13:45 13:45 WBC 9.0 RBC 3.71 L Hgb 10.7 L Hct 33.8 L MCV 91.1 MCH 28.8 MCHC 31.7 L RDW Std Deviation 41.7 RDW Coeff of Alisson 12.6 Plt Count 394 MPV 10.0 Immature Gran % (Auto) 0.200 Neut % (Auto) 80.3 H Lymph % (Auto) 8.9 L Thayer % (Auto) 6.7 Eos % (Auto) 3.5 Baso % (Auto) 0.4 Absolute Neuts (auto) 7.2 Absolute Lymphs (auto) 0.80 L Nucleated RBC % 0 Sodium 139 Potassium 3.7 Chloride 99 Carbon Dioxide 32.0 Anion Gap 8 BUN 30 H Creatinine 1.63 H Estim Creat Clear Calc 47.48 Est GFR (MDRD) Af Amer 55 L Est GFR (MDRD) Non-Af 45 L BUN/Creatinine Ratio 18.4 Glucose 179 H Calcium 8.6 B-Natriuretic Peptide 118.4 H Radiography Chest X-Ray - ED: 1 View, Read by ED Physician, Read by Radiologist and Left Effusion Diagnostic Testing: Clinical Impression(s) from Imaging Studies Chest X-Ray 12/25/21 13:56 IMPRESSION: 1. Massive left subpulmonic fluid, worse since 12/11/2021. 2. Compressive atelectasis in the bottom two thirds of the left lung, worse since 12/11/2021. Electronically Signed: Geoff Rocha MD at 15:05 EST , ED attending interpretation of chest x-ray shows large left pleural effusion taking up 2/3 of the lung. EKG Initial EKG: Attestation: I personally reviewed and interpreted this EKG as follows: Interpretation: No Acute Injury Pattern Comments: Atrial fibrillation at 102 bpm, no acute injury pattern <Dr. Bautista Ellis, DO - Last Filed: 12/25/21 22:59> [facility] Narrative Medical decision making narrative: Patient with history of CHF and recurrent left pleural effusions presents with 2 days of worsening dyspnea. Initially was in mild respiratory distress and was given a DuoNeb treatment per nursing staff. When I arrived he is able to speak in full sentences and is satting 94% or above on room air. He states typically he wears 2 L with walking and 4 L at night. He does have severely diminished lung sounds in the left lower lobe concerning for recurrent effusion. CXR shows massive left sided effusion worse from previous causing compressive atelectasis of the bottom two thirds of the lung. With ambulation he was not hypoxic but did feel lightheaded with heart rate in the 130s. Case was discussed with the hospitalist for admission for CHF exacerbation/recurrent left pleural effusion. Plan will be to hold Eliquis prior to procedure. Attending note: Patient seen and evaluated with anode rebuilder. I perform my own [id number] evaluation. I agree with the plan of work-up. Increasing recurrent dyspnea over 2 days. History of CHF. History of atrial fibrillation started on Eliquis 10 days ago by cardiology. He has had thoracentesis multiple times last time was 18 days ago in the hospital. He wears home oxygen at night. Tracheostomy due to laryngeal cancer in the past. Exam blunt breath sounds left lower lobe. No respiratory distress currently on room air. Heart was irregular. EKG atrial fibrillation. Last BNP 118. Creatinine 1.63 stable from previous. Hemoglobin 10.7 white count 9.0. Two-view chest x-ray reviewed by myself read by radiology significant recurrent left pleural effusion two thirds of the left lung. He was not hypoxic however upon ambulation tachycardic up to the 130s increasing dyspnea. Discussed with hospitalist for admission. Lab Data Labs: Laboratory Results - last 24 hr 12/25/21 12/25/21 12/25/21 13:45 13:45 13:45 WBC 9.0 RBC 3.71 L Hgb 10.7 L Hct 33.8 L MCV 91.1 MCH 28.8 MCHC 31.7 L RDW Std Deviation 41.7 RDW Coeff of Alisson 12.6 Plt Count 394 MPV 10.0 Immature Gran % (Auto) 0.200 Neut % (Auto) 80.3 H Lymph % (Auto) 8.9 L Thayer % (Auto) 6.7 Eos % (Auto) 3.5 Baso % (Auto) 0.4 Absolute Neuts (auto) 7.2 Absolute Lymphs (auto) 0.80 L Nucleated RBC % 0 Sodium 139 Potassium 3.7 Chloride 99 Carbon Dioxide 32.0 Anion Gap 8 BUN 30 H Creatinine 1.63 H Estim Creat Clear Calc 47.48 Est GFR (MDRD) Af Amer 55 L Est GFR (MDRD) Non-Af 45 L BUN/Creatinine Ratio 18.4 Glucose 179 H Calcium 8.6 B-Natriuretic Peptide 118.4 H Radiography Diagnostic Testing: Clinical Impression(s) from Imaging Studies Chest X-Ray 12/25/21 13:56 IMPRESSION: 1. Massive left subpulmonic fluid, worse since 12/11/2021. 2. Compressive atelectasis in the bottom two thirds of the left lung, worse since 12/11/2021. Electronically Signed: Geoff Rocha MD at 15:05 EST , Discharge Plan Dx/Rx/DC Orders Clinical Impression: CHF exacerbation, Recurrent left pleural effusion, Dyspnea, Chronic a-fib, Anticoagulant long-term use, CKD (chronic kidney disease) Disposition Disposition: Acute Care Hospital [facility] Discharge Date/Time: 12/25/21 18:54
[2021-12-25 14:40] LABS: Absolute Neutrophil Count 7.2 X10^3/uL (2.0-7.7); Basophil# 0.04 X10^3/uL; Basophil% 0.4 % (0-1); Eosinophil# 0.32 X10^3/uL; Eosinophils% 3.5 % (0-5); Hematocrit 33.8 % (40-54); Hemoglobin 10.7 g/dL (13.0-16.5); Lymphocyte % 8.9 % (19-41); Mean Corp Hgb Conc 31.7 g/dL (32-36); Mean Corpuscular Hgb 28.8 pg (27.0-32.0); Mean Corpuscular Volume 91.1 fL (80-94); Monocyte% 6.7 % (0-10); NRBC Flagged by Analyzer 0 % (0-5); Neutrophil # 7.24 X10^3/uL (2.7-7.7); Neutrophil % 80.3 % (47-70); Platelet Count 394 K/mm3 (150-450); RBC Distribution Width CV 12.6 % (11.6-14.6); RBC Distribution Width SD 41.7 fl (35.1-43.9); Red Blood Count 3.71 M/mm3 (4.6-6.2)
[2021-12-25 14:52] LABS: Anion Gap 8 (5-15); BUN 30 mg/dL (7-18); BUN/Creat Ratio 18.4 RATIO (10-20); Calcium,Total 8.6 mg/dL (8.5-10.1); Chloride 99 mmol/L (98-107); Creatinine, Serum 1.63 mg/dL (0.70-1.30); EST Glomerular Filtration Rate 45 mL/min (>60); Est Glom Filt Rate - Afr Amer 55 mL/min (>60); Estimated Creatinine Clearance 47.48 ml/min; Glucose 179 mg/dL (74-106); Potassium 3.7 mmol/L (3.5-5.1); Sodium Level 139 mmol/L (136-145)
[2021-12-25 15:20] LABS: BNP,B-Type NATRIURETIC PEPTIDE 118.4 pg/mL (0-100)
[2021-12-25] MEDS: oxyCODONE 5 MG Tablet PO (15:23)
--- NOTE | 2021-12-25 17:41 | PCM.HP.STD ---
[facility] - General General Date of Admission: 12/25/21 Date of Service: 12/25/21 Chief Complaint: Shortness of breath HPI Narrative ABDIEL CORTEZ, is a 66 M who presents to the emergency room at [facility] with a chief complaint of increasing shortness of breath over the last 2 days. Patient was hospitalized earlier in December of this year here for recurrent left pleural effusion, he underwent a thoracentesis at that time and he was instructed to follow-up and have repeat chest x-rays done as an outpatient but he has not had an appointment for follow-up with his PCP. Patient is chronically on oxygen at night and as needed at home, he has a previous history of laryngeal cancer (remote) with an indwelling trach. Patient denies any fever or chills, he denies any purulent sputum production. Work-up in the emergency room included a chest x-ray which showed a large left pleural effusion, patient's beta natruretic peptide was minimally elevated, patient's CBC was remarkable for hemoglobin of 10.7, white blood cell count was normal, patient's creatinine was elevated at 1.63, BUN was 30. Patient's glucose was 179. Patient has been taking Eliquis for atrial fibrillation since he was placed on this after his admission to the hospital earlier this month. It appears however that he was discharged on 12/13/2021 on no Eliquis-it does appear on the patient's med list for his cardiology visit on 12/15/2021. Patient will be admitted to PCU for acute on chronic diastolic CHF with recurrent left pleural effusion with hypoxia, he will need to undergo a thoracentesis but will not be able to have this performed until Sunday due to the fact he is taking daily Eliquis. This examiner questions whether the patient will need a Pleurx catheter inserted or perhaps be transferred for pleurodesis. I will have pulmonary medicine see the patient in consultation to advise, due to the week, I doubt that the patient will be undergoing any procedures other than a thoracentesis this week. I will place the patient on IV Lasix for diuresis, patient's pulse ox will be monitored. [facility] Medical History (HFpEF) heart failure with preserved ejection fraction Acute hypercapnic respiratory failure Ambulates with cane Anxiety Atherosclerosis of coronary artery of [place] heart without angina pectoris Back pain Benign neoplasm of colon Cholelithiasis Chronic diastolic (congestive) heart failure Chronic renal failure, stage 3 (moderate) COPD (chronic obstructive pulmonary disease) COPD with acute exacerbation Diabetes mellitus, type II Diverticulosis of colon (without mention of hemorrhage) Easy bruising Edema Emphysema, unspecified Esophageal dysmotility Essential hypertension Excessive bleeding Former smoker Gastric reflux Gastroenteritis Gout Hiatal hernia History of colon polyps History of renal disease History of steroid therapy History of stress test Hyperlipidemia Hypothyroidism Hypoxemia Injury of back Injury of head and neck Insomnia Kidney failure Laryngeal cancer Leg cramps Malignant neoplasm of head, neck and face Migraine headache Morbid obesity Morbid obesity Normal stress echocardiogram Obesity On home oxygen therapy Pleural effusion, left Polyneuropathy due to type 2 diabetes mellitus Shortness of breath Shortness of breath on exertion Thyroid disease Type 2 diabetes mellitus without complication Type 2 diabetes with stage 3 chronic kidney disease GFR 30-59 Walker as ambulation aid Wears glasses Home Medications levothyroxine 150 mcg tablet 150 mcg PO DAILY hypothyroidism 06/04/14 [History Last Taken 12/05/21] atorvastatin 40 mg tablet 40 mg PO DAILY@1700 cholesterol 04/12/17 [History Last Taken 12/05/21] ipratropium 0.5 mg-albuterol 3 mg (2.5 mg base)/3 mL nebulization soln 3 ml inhalation Q6H sob 04/12/17 [History Last Taken 12/06/21] flash glucose sensor (FreeStyle Zayra 2 Sensor kit) #2 ea 05/17/21 [Rx Last Taken Unknown] insulin detemir U-100 100 unit/mL (3 mL) subcutaneous pen (Levemir FlexTouch U-100 Insulin) 25 unit subcut BID DIABETES 11/07/21 [History Last Taken 12/05/21] lisinopril 5 mg tablet 5 mg PO DAILY BLOOD PRESSURE 11/07/21 [History Last Taken 12/05/21] metolazone 2.5 mg tablet 2.5 mg PO MOWEFR EDEMA 11/07/21 [History Last Taken 12/05/21] acetaminophen 325 mg tablet 650 mg PO DAILY PAIN 12/06/21 [History Last Taken 12/05/21] budesonide 0.5 mg/2 mL suspension for nebulization (Pulmicort) 0.5 mg inhalation BID sob 12/06/21 [History Last Taken Unknown] dulaglutide 4.5 mg/0.5 mL subcutaneous pen injector (Trulicity) 4.5 mg subcut FR DIABETES 12/06/21 [History Last Taken 12/02/21] furosemide 40 mg tablet 40 mg PO 0900,1700 EDEMA 12/06/21 [History Last Taken 12/05/21] guaifenesin 600 mg tablet, extended release 12 hr (Mucinex) 600 mg PO DAILY PRN Congestion 12/06/21 [History Last Taken 12/05/21] melatonin 10 mg tablet 20 mg PO QHS SLEEP 12/06/21 [History Last Taken Unknown] metformin 500 mg tablet,extended release 24 hr 500 mg PO 0900,1700 DIABETES 12/06/21 [History Last Taken 12/05/21] omeprazole 20 mg capsule,delayed release 20 mg PO DAILY GERD 12/06/21 [History Last Taken 12/05/21] diltiazem HCl 120 mg capsule,extended release 24 hr 120 mg PO BID #180 caps 12/14/21 [Rx Last Taken Unknown] apixaban 5 mg tablet (Eliquis) 5 mg PO BID #60 tabs 12/15/21 [Rx Last Taken Unknown] cyanocobalamin (vitamin B-12) 2,500 mcg tablet 2,500 mcg PO DAILY 12/15/21 [History Last Taken Unknown] Allergy/AdvReac Type Severity Reaction Status Date / Time egg [eggs] AdvReac Vomiting Verified 12/25/21 13:27 Family History Mother Diabetes Hypertension Kidney disease Heart failure Father CVA (cerebral vascular accident) Hypertension Heart disease ischemic Brother Diabetes Surgical History History of cardiac catheterization History of exploratory laparotomy History of laryngectomy (2007) History of thyroidectomy Hx of colonoscopy Presence of tracheostomy Social History Smoking Status: Former smoker Smokeless tobacco user: snuff how long ago did patient quit smokin years ago alcohol intake: never substance use type: does not use caffeine: Yes what type of physical activity do you participate in: none frequency: does not exercise ROS Constitutional Constitutional: Reports fatigue and weakness; Denies anorexia, change in weight, chills, fever(s) or night sweats Eyes Eyes: Denies blurry vision, change in vision, discharge from eye(s) or eye pain Cardiovascular Cardiovascular: Reports dyspnea on exertion; Denies chest pain, claudication, edema or palpitations Respiratory/Chest Respiratory/Chest: Reports dyspnea and shortness of breath with exertion; Denies cough, hemoptysis or shortness of breath at rest Gastrointestinal Gastrointestinal: Denies abdominal pain, constipation, diarrhea, dyspepsia, hematemesis, hematochezia, melena, nausea or vomiting Genitourinary Genitourinary: Denies difficulty urinating, dysuria, hematuria, nocturia, urinary frequency, urinary hesitancy, urinary incontinence or urinary urgency Musculoskeletal Musculoskeletal: Denies back pain, joint pain, joint stiffness, joint swelling, myalgias or neck pain Neurologic Neurologic: Denies abnormal gait, abnormal speech, confusion, disequilibrium, dizziness, focal weakness, headache(s), loss of vision, numbness, other visual disturbances, paresthesias, syncope or tingling Psychiatric Psychiatric: Denies anxiety, cognitive impairment, depression, irritability, mood swings or suicidal ideation Endocrine Endocrinology: Denies change in body appearance, cold intolerance, excessive sweating, heat intolerance, polydipsia or polyuria Hematologic/Lymphatic Hematologic/Lymphatic: Denies none, anemia, easy bleeding, easy bruising or lymphadenopathy Allergic/Immunologic Allergic/Immunologic: Denies rhinitis, urticaria, eczemia or asthma Vital Signs Vital Signs Vital Signs: 12/25/21 13:26 12/25/21 13:53 12/25/21 14:53 Temperature 97.4 F L Temperature Source Temporal Pulse Rate 130 H 110 H Respiratory Rate 28 H 23 H Respiratory Effort Short of Breath Respiratory Pattern Tachypnea Blood Pressure 133/71 H Blood Pressure Mean 91 Pulse Ox 93 Oxygen Delivery Method Room Air 12/25/21 15:04 Temperature Temperature Source Pulse Rate 90 Respiratory Rate 18 Respiratory Effort Respiratory Pattern Blood Pressure 128/68 H Blood Pressure Mean 88 Pulse Ox 96 Oxygen Delivery Method Room Air Weight Weight: 136.078 kg Body Mass Index (BMI) 41.8 Physical Exam Const alert, oriented x3, no apparent distress and healthy appearing Constitutional Narrative: Patient is able to talk using esophageal speech, for the most part he is easy to understand, patient is morbidly obese General Appearance: cooperative, well kempt and well developed Orientation / Consciousness: awake, oriented to person, oriented to place and oriented to time HEENT normocephalic and head/scalp atraumatic HEENT Narrative: Patient has a permanent trach Eyes PERRL, EOMs intact bilaterally and conjunctivae normal Neck supple, no JVD, thyroid normal and no carotid bruits General: trachea midline Resp normal respiratory effort, no retractions and no use of accessory muscles Resp Narrative: Decreased breath sounds are noted over the left lung field, no rales rhonchi or wheezes are noted Auscultation: Negative for rales, rhonchi or wheezes Cardio no murmurs, no rub and no gallops Cardio Narrative: Heart rate and rhythm is irregular GI normal to inspection, nondistended, normoactive bowel sounds, soft to palpation, non-tender and non-distended GI Narrative: Patient is morbidly obese Extremity no clubbing, cyanosis or edema Skin no rashes or lesions noted General Skin Exam: no breakdown Neuro oriented x3, CN's II-XII intact bilaterally, no focal motor deficits and no sensory deficits noted Sensorium / Orientation: awake and alert Speech: speech normal Psych affect normal Results Lab / Micro Data Result Diagrams: 12/25/21 13:45 12/25/21 13:45 Labs: Laboratory Results - last 24 hr 12/25/21 13:45: WBC 9.0, RBC 3.71 L, Hgb 10.7 L, Hct 33.8 L, MCV 91.1, MCH 28.8, MCHC 31.7 L, RDW Std Deviation 41.7, RDW Coeff of Alisson 12.6, Plt Count 394, MPV 10.0, Immature Gran % (Auto) 0.200, Neut % (Auto) 80.3 H, Lymph % (Auto) 8.9 L, Sargent % (Auto) 6.7, Eos % (Auto) 3.5, Baso % (Auto) 0.4, Absolute Neuts (auto) 7.2, Absolute Lymphs (auto) 0.80 L, Nucleated RBC % 0 12/25/21 13:45: Sodium 139, Potassium 3.7, Chloride 99, Carbon Dioxide 32.0, Anion Gap 8, BUN 30 H, Creatinine 1.63 H, Estim Creat Clear Calc 47.48, Est GFR (MDRD) Af Amer 55 L, Est GFR (MDRD) Non-Af 45 L, BUN/Creatinine Ratio 18.4, Glucose 179 H, Calcium 8.6 12/25/21 13:45: B-Natriuretic Peptide 118.4 H Radiology Impression Chest X-Ray 12/25/21 13:56 IMPRESSION: 1. Massive left subpulmonic fluid, worse since 12/11/2021. 2. Compressive atelectasis in the bottom two thirds of the left lung, worse since 12/11/2021. Electronically Signed: Geoff Rocha MD at 15:05 EST , Assessment & Plan Assessment/Plan (1) Chronic diastolic (congestive) heart failure: PLAN: Plan 1. Acute on chronic diastolic congestive heart failure-patient will be admitted to PCU, he will be placed on IV Lasix, labs will be monitored. I do not feel the patient needs a repeat echocardiogram-1 was performed in October of this year. #2 acute recurrent left pleural effusion-since the patient is currently on Eliquis, he will need to be off this medication for 48 hours before thoracentesis can be performed, this will need to be scheduled by the patient's attending hospitalist tomorrow #3 chronic atrial fib-patient will need to be off Eliquis at this time, he will remain on his other rate control medications #4 morbid obesity-complicates care, management, recovery, and prognosis #5 chronic obstructive pulmonary disease-patient is on oxygen at 4 L at night, this will be continued, his home medications will be continued #6 chronic hypoxic respiratory failure-patient has oxygen requirement at night and occasionally on exertion, pulse ox will be monitored #7 type 2 diabetes-patient's blood sugars will be monitored, sliding scale insulin will be used #8 hypothyroidism-patient will remain on his home medication #9 chronic kidney disease stage IIIa-labs will be monitored Charges/Coding Visit Charges Inpatient E&M: 80013 Init Hosp L3
[2021-12-25] MEDS: Ondansetron 4 MG/2 ML Vial IV (18:37)
[2021-12-25] MEDS: Furosemide 500 MG in Empty Viaflex 50 mL 1 EACH CONT INF (19:48)
[2021-12-25] MEDS: Insulin Glargine-YFGN 100 UNIT/ML Pen 25 UNIT SC (20:41)
[2021-12-25 21:30] LABS: Bedside Glucose 94 mg/dL (74-106)
[2021-12-25] MEDS: dilTIAZem CD 120 MG Capsule PO (22:24)
[2021-12-26] VITALS (12 sets, daily range): BP systolic 96–129; BP diastolic 50–72; PULSE 71–103; RESP 18–24; TEMP 36.7–37.1; O2SAT 94–100
[2021-12-26] MEDS: Ipratropium/Albuterol Sulfate 3 ML AMPUL.NEB INHALATION ×4 (01:33→19:36)
[2021-12-26 05:11] LABS: Absolute Neutrophil Count 6.6 X10^3/uL (2.0-7.7); Basophil# 0.05 X10^3/uL; Basophil% 0.6 % (0-1); Eosinophil# 0.19 X10^3/uL; Eosinophils% 2.2 % (0-5); Hematocrit 29.2 % (40-54); Hemoglobin 9.3 g/dL (13.0-16.5); Lymphocyte % 10.3 % (19-41); Mean Corp Hgb Conc 31.8 g/dL (32-36); Mean Corpuscular Hgb 28.7 pg (27.0-32.0); Mean Corpuscular Volume 90.1 fL (80-94); Mean Platelet Vol. 9.7 fl (6.2-12.0); Monocyte# 0.96 X10^3/uL; NRBC Flagged by Analyzer 0 % (0-5); Neutrophil # 6.57 X10^3/uL (2.7-7.7); Neutrophil % 75.6 % (47-70); Platelet Count 343 K/mm3 (150-450); RBC Distribution Width CV 12.5 % (11.6-14.6); RBC Distribution Width SD 41.1 fl (35.1-43.9); Red Blood Count 3.24 M/mm3 (4.6-6.2); White Blood Count 8.7 K/mm3 (4.4-11.0)
[2021-12-26 05:49] LABS: Anion Gap 7 (5-15); BUN 33 mg/dL (7-18); BUN/Creat Ratio 19.4 RATIO (10-20); Chloride 99 mmol/L (98-107); EST Glomerular Filtration Rate 43 mL/min (>60); Est Glom Filt Rate - Afr Amer 52 mL/min (>60); Estimated Creatinine Clearance 45.52 ml/min; Glucose 132 mg/dL (74-106); Potassium 3.8 mmol/L (3.5-5.1); Sodium Level 139 mmol/L (136-145)
[2021-12-26] MEDS: Levothyroxine 150 MCG Tablet PO (05:55)
[2021-12-26 06:40] LABS: Bedside Glucose 115 mg/dL (74-106)
[2021-12-26] MEDS: Budesonide Respules 0.5 MG/2 ML AMPUL.NEB. INHALATION ×3 (06:46→19:36)
--- NOTE | 2021-12-26 06:46 | CON.PCM.CC_ITS ---
Documented by User: Dr. Maxi Doan MD 12/26/21 13:30 Assessment & Plan Assessment/Plan (1) Recurrent left pleural effusion: PLAN: Plan RECOMMENDATIONS: 1. Wean trach collar oxygen to baseline as tolerated to maintain saturations greater than 90%. 2. Plan for therapeutic thoracentesis today of left pleural effusion. 3. Continue diuresis as tolerated by hemodynamic and renal function. 4. Continue bronchodilators, as ordered. 5. Will need outpatient follow-up with thoracic surgeon regarding Pleurx catheter versus pleurodesis. IMPRESSIONS: 1. Recurrent transudative left pleural effusion This patient has had recurrent left sided pleural effusions October 2021, requiring 3 thoracentesis to date. The last thoracentesis on 12/07/2021 revealed a transudative fluid. The patient was instructed to comply with a low- sodium diet and continue to follow with cardiology for underlying congestive heart failure. Despite this, the patient has redeveloped massive left subpulmonic fluid with compressive atelectasis in the bottom two thirds of the left lung. The patient is requiring increased oxygen through trach collar, as compared to baseline. Clinical suspicion for restriction secondary to pleural effusion leading to increased oxygen demands. Therapeutic thoracentesis is requested by interventional radiology. Patient will need outpatient follow-up with thoracic surgeon to pursue possible Pleurx catheter versus pleurodesis. Patient does report that his tracheostomy was performed at [facility], and he would be agreeable to referral there. This should be done as an outpatient. 2. History of laryngeal cancer status post tracheostomy/morbid obesity/hypothyroidism/COPD/chronic respiratory failure/paroxysmal A. fib Complicates care, management, recovery and prognosis. Continue home medications as indicated. Patient does not appear to have concomitant pneumonia or other infectious etiology at this time. HPI Consult Data Date of Consult: 12/26/21 HPI Narrative HPI Narrative: ABDIEL CORTEZ, is a 66 M, with past medical history as outline below, who presented to the emergency department on 12/25/2021 for gradual onset of shortness of breath over the previous 2 days with dry cough. The patient has a remote history of laryngeal cancer with tracheostomy and at baseline wears 2 L of O2 during the day and 4 L of O2 at night. Over the past few months, the patient has developed recurrent left-sided pleural effusions and has been drained 3 times, most recently on December 07 during admission. Analysis at that time demonstrated the fluid to be transudative. On arrival to the emergency department the patient was afebrile but tachycardic with a rate of 130, tachypneic, and maintaining oxygen saturation of 93% on room air. CBC demonstrated normal white blood cell count with a normocytic anemia with hemoglobin at 10.7 and hematocrit at 29.2. BMP revealed normal electrolytes with kidney function at baseline with creatinine 1.63 BUN 30. BNP was 118. Chest x-ray demonstrated massive left subpulmonic fluid with compressive atelectasis and bottom two thirds of the left lung. The patient was admitted to the progressive care unit for further management, and pulmonary was consulted. On exam, the patient is on 10 L of humidified oxygen via trach collar, but does appear comfortable and able to speak in complete sentences. Patient reported symptomatology similar to previous admissions. Patient did not reported any increase in secretions or hemoptysis. Patient did have lower extremity edema. Since last visit, patient has had his metoprolol increased and remains on daily diuretics. Review of systems otherwise negative from a constitutional, HEENT, respiratory, cardiovascular, GI, genitourinary, musculoskeletal, skin, neurologic, psychiatric and hematologic system unless stated above. [facility]LY [facility] Medical History (HFpEF) heart failure with preserved ejection fraction Acute hypercapnic respiratory failure Ambulates with cane Anxiety Atherosclerosis of coronary artery of [place] heart without angina pectoris Back pain Benign neoplasm of colon Cholelithiasis Chronic diastolic (congestive) heart failure Chronic pain Chronic renal failure, stage 3 (moderate) COPD (chronic obstructive pulmonary disease) COPD with acute exacerbation Diabetes Diabetes mellitus, type II Diverticulosis of colon (without mention of hemorrhage) Easy bruising Edema Emphysema, unspecified Esophageal dysmotility Essential hypertension Excessive bleeding Former smoker Gastric reflux Gastroenteritis Gout Hiatal hernia History of colon polyps History of renal disease History of steroid therapy History of stress test Hyperlipidemia Hypothyroidism Hypoxemia Injury of back Injury of head and neck Insomnia Irregular heart beat Kidney failure Laryngeal cancer Leg cramps Malignant neoplasm of head, neck and face Migraine headache Morbid obesity Morbid obesity Normal stress echocardiogram Obesity On home oxygen therapy Pleural effusion, left Polyneuropathy due to type 2 diabetes mellitus Shortness of breath Shortness of breath on exertion Thyroid disease Type 2 diabetes mellitus without complication Type 2 diabetes with stage 3 chronic kidney disease GFR 30-59 Walker as ambulation aid Wears glasses Home Medications levothyroxine 150 mcg tablet 150 mcg PO DAILY hypothyroidism 06/04/14 [History Last Taken 12/05/21] atorvastatin 40 mg tablet 40 mg PO DAILY@1700 cholesterol 04/12/17 [History Last Taken 12/05/21] ipratropium 0.5 mg-albuterol 3 mg (2.5 mg base)/3 mL nebulization soln 3 ml inhalation Q6H sob 04/12/17 [History Last Taken 12/06/21] flash glucose sensor (FreeStyle Zayra 2 Sensor kit) #2 ea 05/17/21 [Rx Last Taken Unknown] insulin detemir U-100 100 unit/mL (3 mL) subcutaneous pen (Levemir FlexTouch U- 100 Insulin) 25 unit subcut BID DIABETES 11/07/21 [History Last Taken 12/05/21] lisinopril 5 mg tablet 5 mg PO DAILY BLOOD PRESSURE 11/07/21 [History Last Taken 12/05/21] metolazone 2.5 mg tablet 2.5 mg PO MOWEFR EDEMA 11/07/21 [History Last Taken 12/05/21] acetaminophen 325 mg tablet 650 mg PO DAILY PRN Pain 12/06/21 [History Last Taken 12/05/21] budesonide 0.5 mg/2 mL suspension for nebulization (Pulmicort) 0.5 mg inhalation BID sob 12/06/21 [History Last Taken Unknown] dulaglutide 4.5 mg/0.5 mL subcutaneous pen injector (Trulicity) 4.5 mg subcut FR DIABETES 12/06/21 [History Last Taken 12/02/21] furosemide 40 mg tablet 40 mg PO 0900,1700 EDEMA 12/06/21 [History Last Taken 12/05/21] guaifenesin 600 mg tablet, extended release 12 hr (Mucinex) 600 mg PO DAILY PRN Congestion 12/06/21 [History Last Taken 12/05/21] melatonin 10 mg tablet 20 mg PO QHS SLEEP 12/06/21 [History Last Taken Unknown] metformin 500 mg tablet,extended release 24 hr 500 mg PO 0900,1700 DIABETES 12/06/21 [History Last Taken 12/05/21] omeprazole 20 mg capsule,delayed release 20 mg PO DAILY GERD 12/06/21 [History Last Taken 12/05/21] diltiazem HCl 120 mg capsule,extended release 24 hr 120 mg PO BID #180 caps 12/14/21 [Rx Last Taken Unknown] apixaban 5 mg tablet (Eliquis) 5 mg PO BID #60 tabs 12/15/21 [Rx Last Taken Unknown] cyanocobalamin (vitamin B-12) 2,500 mcg tablet 2,500 mcg PO DAILY supplement 12/15/21 [History Last Taken Unknown] Allergy/AdvReac Type Severity Reaction Status Date / Time egg [eggs] AdvReac Vomiting Verified 12/25/21 19:20 Family History Mother Diabetes Hypertension Kidney disease Heart failure Father CVA (cerebral vascular accident) Hypertension Heart disease ischemic Brother Diabetes Surgical History History of cardiac catheterization History of exploratory laparotomy History of laryngectomy (2007) History of thyroidectomy Hx of colonoscopy Presence of tracheostomy Social History Smoking Status: Former smoker Smokeless tobacco user: snuff how long ago did patient quit smokin years ago alcohol intake: never substance use type: does not use caffeine: Yes what type of physical activity do you participate in: none frequency: does not exercise Physical Exam Const Constitutional Narrative: Obese white male, sitting upright in bed with trach collar in place. Able to vocalize Resp Percussion: dullness Mid: left and Lower: left Extremity General Extremity: edema bilateral (2+ bilateral lower extremity) Skin General Skin Exam: venous stasis Medical Records Data Medical records narrative: Old work-up of pleural effusion was reviewed and was consistent with transudate etiology Lab / Micro Data Attestation: I reviewed the patient's lab results. Result Diagrams: 12/26/21 04:35 12/26/21 04:35 Labs: Laboratory Results - last 24 hr 12/25/21 13:45: WBC 9.0, RBC 3.71 L, Hgb 10.7 L, Hct 33.8 L, MCV 91.1, MCH 28.8, MCHC 31.7 L, RDW Std Deviation 41.7, RDW Coeff of Alisson 12.6, Plt Count 394, MPV 10.0, Immature Gran % (Auto) 0.200, Neut % (Auto) 80.3 H, Lymph % (Auto) 8.9 L, Boyd % (Auto) 6.7, Eos % (Auto) 3.5, Baso % (Auto) 0.4, Absolute Neuts (auto) 7.2, Absolute Lymphs (auto) 0.80 L, Nucleated RBC % 0 12/25/21 13:45: Sodium 139, Potassium 3.7, Chloride 99, Carbon Dioxide 32.0, Anion Gap 8, BUN 30 H, Creatinine 1.63 H, Estim Creat Clear Calc 47.48, Est GFR (MDRD) Af Amer 55 L, Est GFR (MDRD) Non-Af 45 L, BUN/Creatinine Ratio 18.4, Glucose 179 H, Calcium 8.6 12/25/21 13:45: B-Natriuretic Peptide 118.4 H 12/25/21 20:37: POC Glucose 94 12/26/21 04:35: WBC 8.7, RBC 3.24 L, Hgb 9.3 L, Hct 29.2 L, MCV 90.1, MCH 28.7, MCHC 31.8 L, RDW Std Deviation 41.1, RDW Coeff of Alisson 12.5, Plt Count 343, MPV 9.7, Immature Gran % (Auto) 0.300, Neut % (Auto) 75.6 H, Lymph % (Auto) 10.3 L, Boyd % (Auto) 11.0 H, Eos % (Auto) 2.2, Baso % (Auto) 0.6, Absolute Neuts (auto) 6.6, Absolute Lymphs (auto) 0.90, Nucleated RBC % 0 12/26/21 04:35: Sodium 139, Potassium 3.8, Chloride 99, Carbon Dioxide 33.0 H, Anion Gap 7, BUN 33 H, Creatinine 1.70 H, Estim Creat Clear Calc 45.52, Est GFR (MDRD) Af Amer 52 L, Est GFR (MDRD) Non-Af 43 L, BUN/Creatinine Ratio 19.4, Glucose 132 H, Calcium 8.0 L 12/26/21 06:23: POC Glucose 115 H Radiology Impression Chest X-Ray 12/25/21 13:56 IMPRESSION: 1. Massive left subpulmonic fluid, worse since 12/11/2021. 2. Compressive atelectasis in the bottom two thirds of the left lung, worse since 12/11/2021. Electronically Signed: Geoff Rocha MD at 15:05 EST , Charges/Coding Visit Charges Inpatient E&M: 44638 Init Hosp L2 Documented by User: OLIVIA SEWELL 12/26/21 10:36 Assessment & Plan Assessment/Plan (1) Recurrent left pleural effusion: PLAN: Plan RECOMMENDATIONS: 1. Wean trach collar oxygen to baseline as tolerated to maintain saturations greater than 90%. 2. Plan for therapeutic thoracentesis today of left pleural effusion. 3. Continue diuresis as tolerated by hemodynamic and renal function. 4. Continue bronchodilators, as ordered. 5. Will need outpatient follow-up with thoracic surgeon regarding Pleurx catheter versus pleurodesis. IMPRESSIONS: 1. Recurrent transudative left pleural effusion This patient has had recurrent left sided pleural effusions October 2021, requiring 3 thoracentesis to date. The last thoracentesis on 12/07/2021 revealed a transudative fluid. The patient was instructed to comply with a low- sodium diet and continue to follow with cardiology for underlying congestive heart failure. Despite this, the patient has redeveloped massive left subp ulmonic fluid with compressive atelectasis in the bottom two thirds of the left lung. The patient is requiring increased oxygen through trach collar, as compared to baseline. Therapeutic thoracentesis is requested by interventional radiology. Patient will need outpatient follow-up with thoracic surgeon to pursue possible Pleurx catheter versus pleurodesis. Patient does report that his tracheostomy was performed at [facility], and he would be agreeable to referral there. 2. History of laryngeal cancer status post tracheostomy/morbid obesity/hypothyroidism/COPD/chronic respiratory failure/paroxysmal atrial fibrillation Complicates care, management, recovery and prognosis. Continue home medications as indicated. HPI Consult Data Date of Consult: 12/26/21 HPI Narrative Reason for Consultation: Recurrent pleural effusion HPI Narrative: ABDIEL CORTEZ, is a 66 M, with past medical history as outline below, who presented to the emergency department on 12/25/2021 for gradual onset of shortness of breath over the previous 2 days with dry cough. The patient has a remote history of laryngeal cancer with tracheostomy and at baseline wears 2 L of O2 during the day and 4 L of O2 at night. Over the past few months, the patient has developed recurrent left-sided pleural effusions and has been drained 3 times, most recently on December 07 during admission. Analysis at that time demonstrated the fluid to be transudative. On arrival to the emergency department the patient was afebrile but tachycardic with a rate of 130, tachypneic, and maintaining oxygen saturation of 93% on room air. CBC demonstrated normal white blood cell count with a normocytic anemia with hemoglobin at 10.7 and hematocrit at 29.2. BMP revealed normal electrolytes with kidney function at baseline with creatinine 1.63 BUN 30. BNP was 118. Chest x-ray demonstrated massive left subpulmonic fluid with compressive atelectasis and bottom two thirds of the left lung. The patient was admitted to the progressive care unit for further management, and pulmonary was consulted. On exam, the patient is on 10 L of humidified oxygen via trach collar, but does appear comfortable and able to speak in complete sentences. [facility] Medical History (HFpEF) heart failure with preserved ejection fraction Acute hypercapnic respiratory failure Ambulates with cane Anxiety Atherosclerosis of coronary artery of [place] heart without angina pectoris Back pain Benign neoplasm of colon Cholelithiasis Chronic diastolic (congestive) heart failure Chronic pain Chronic renal failure, stage 3 (moderate) COPD (chronic obstructive pulmonary disease) COPD with acute exacerbation Diabetes Diabetes mellitus, type II Diverticulosis of colon (without mention of hemorrhage) Easy bruising Edema Emphysema, unspecified Esophageal dysmotility Essential hypertension Excessive bleeding Former smoker Gastric reflux Gastroenteritis Gout Hiatal hernia History of colon polyps History of renal disease History of steroid therapy History of stress test Hyperlipidemia Hypothyroidism Hypoxemia Injury of back Injury of head and neck Insomnia Irregular heart beat Kidney failure Laryngeal cancer Leg cramps Malignant neoplasm of head, neck and face Migraine headache Morbid obesity Morbid obesity Normal stress echocardiogram Obesity On home oxygen therapy Pleural effusion, left Polyneuropathy due to type 2 diabetes mellitus Shortness of breath Shortness of breath on exertion Thyroid disease Type 2 diabetes mellitus without complication Type 2 diabetes with stage 3 chronic kidney disease GFR 30-59 Walker as ambulation aid Wears glasses Home Medications levothyroxine 150 mcg tablet 150 mcg PO DAILY hypothyroidism 06/04/14 [History Last Taken 12/05/21] atorvastatin 40 mg tablet 40 mg PO DAILY@1700 cholesterol 04/12/17 [History Last Taken 12/05/21] ipratropium 0.5 mg-albuterol 3 mg (2.5 mg base)/3 mL nebulization soln 3 ml inhalation Q6H sob 04/12/17 [History Last Taken 12/06/21] flash glucose sensor (FreeStyle Zayra 2 Sensor kit) #2 ea 05/17/21 [Rx Last Taken Unknown] insulin detemir U-100 100 unit/mL (3 mL) subcutaneous pen (Levemir FlexTouch U- 100 Insulin) 25 unit subcut BID DIABETES 11/07/21 [History Last Taken 12/05/21] lisinopril 5 mg tablet 5 mg PO DAILY BLOOD PRESSURE 11/07/21 [History Last Taken 12/05/21] metolazone 2.5 mg tablet 2.5 mg PO MOWEFR EDEMA 11/07/21 [History Last Taken 12/05/21] acetaminophen 325 mg tablet 650 mg PO DAILY PRN Pain 12/06/21 [History Last Taken 12/05/21] budesonide 0.5 mg/2 mL suspension for nebulization (Pulmicort) 0.5 mg inhalation BID sob 12/06/21 [History Last Taken Unknown] dulaglutide 4.5 mg/0.5 mL subcutaneous pen injector (Trulicity) 4.5 mg subcut FR DIABETES 12/06/21 [History Last Taken 12/02/21] furosemide 40 mg tablet 40 mg PO 0900,1700 EDEMA 12/06/21 [History Last Taken 12/05/21] guaifenesin 600 mg tablet, extended release 12 hr (Mucinex) 600 mg PO DAILY PRN Congestion 12/06/21 [History Last Taken 12/05/21] melatonin 10 mg tablet 20 mg PO QHS SLEEP 12/06/21 [History Last Taken Unknown] metformin 500 mg tablet,extended release 24 hr 500 mg PO 0900,1700 DIABETES 12/06/21 [History Last Taken 12/05/21] omeprazole 20 mg capsule,delayed release 20 mg PO DAILY GERD 12/06/21 [History Last Taken 12/05/21] diltiazem HCl 120 mg capsule,extended release 24 hr 120 mg PO BID #180 caps 12/14/21 [Rx Last Taken Unknown] apixaban 5 mg tablet (Eliquis) 5 mg PO BID #60 tabs 12/15/21 [Rx Last Taken Unknown] cyanocobalamin (vitamin B-12) 2,500 mcg tablet 2,500 mcg PO DAILY supplement 12/15/21 [History Last Taken Unknown] Allergy/AdvReac Type Severity Reaction Status Date / Time egg [eggs] AdvReac Vomiting Verified 12/25/21 19:20 Family History Mother Diabetes Hypertension Kidney disease Heart failure Father CVA (cerebral vascular accident) Hypertension Heart disease ischemic Brother Diabetes Surgical History History of cardiac catheterization History of exploratory laparotomy History of laryngectomy (2007) History of thyroidectomy Hx of colonoscopy Presence of tracheostomy Social History Smoking Status: Former smoker Smokeless tobacco user: snuff how long ago did patient quit smokin years ago alcohol intake: never substance use type: does not use caffeine: Yes what type of physical activity do you participate in: none frequency: does not exercise ROS Constitutional Constitutional: Denies body ache(s), chills, fatigue, fever(s), headache(s), malaise, night sweats or weakness Eyes Eyes: Denies blurry vision, change in vision or loss of vision ENT HEENT: Denies dizziness, dysphagia, epistaxis, headache(s), nasal congestion, nasal discharge or sore throat Cardiovascular Cardiovascular: Reports edema; Denies chest pain, claudication, dizziness, dyspnea, irregular heart rhythm or lightheadedness Respiratory/Chest Respiratory/Chest: Reports cough, dyspnea, hemoptysis and shortness of breath with exertion; Denies chest tightness, pain on inspiration, snoring or wheezing Gastrointestinal Gastrointestinal: Denies abdominal pain, diarrhea, dyspepsia, dysphagia, heartburn, hematochezia, melena, nausea or vomiting Genitourinary Genitourinary: Denies difficulty urinating, dysuria, flank pain, hematuria, polyuria or urinary frequency Musculoskeletal Musculoskeletal: Reports back pain; Denies arthralgias, joint pain or myalgias Integumentary Integumentary: Denies lesions, rash, skin ulcer or wounds Neurologic Neurologic: Denies confusion or focal weakness Psychiatric Psychiatric: Denies anxiety or depression Endocrine Endocrinology: Denies fatigue, polydipsia or polyuria Hematologic/Lymphatic Hematologic/Lymphatic: Denies easy bleeding or easy bruising Physical Exam Const alert and oriented x3 Constitutional Narrative: Obese white male, sitting upright in bed with trach collar in place. General Appearance: cooperative and well developed; Negative for in distress HEENT normocephalic, head/scalp atraumatic and moist oral mucous membranes Eyes PERRL, EOMs intact bilaterally, conjunctivae normal and no scleral icterus Neck no lymphadenopathy and supple General: trachea midline Chest inspection of chest normal Resp normal respiratory effort and no use of accessory muscles Effort and Inspection: able to speak in complete sentences and actively coughing productive (1 episode of small amount of bright red hemoptysis during night.); Negative for tachypneic or labored Auscultation: diminished lung sounds left; Negative for rales, rhonchi or wheezes Cardio regular rate, regular rhythm, S1 normal heart sound, S2 normal heart sound, no murmurs, no rub and no gallops GI normal to inspection, nondistended, normoactive bowel sounds, soft to palpation and non-tender GI Narrative: Obese abdomen. Back/Spine Back/Spine Narrative: Tenderness across mid back, chronic. Extremity Extremity Narrative: Bilateral lower extremity edema, right greater than left. DAVY hose in place. General Extremity: Negative for clubbing Skin no rashes or lesions noted Neuro oriented x3, CN's II-XII intact bilaterally, moves all extremities and no focal motor deficits Speech: speech normal Psych cooperative and affect normal Lab / Micro Data Attestation: I reviewed the patient's lab results. Result Diagrams: 12/26/21 04:35 12/26/21 04:35
--- NOTE | 2021-12-26 08:07 | US_ITS ---
PROCEDURE: ULTRASOUND GUIDED THORACENTESIS. DATE: 12/26/2021. INDICATION: Male, 66 years old. Left pleural effusion. PHYSICIAN: Ney Martino DO PROCEDURE: The risks, benefits, and alternatives to the procedure were explained to the patient. The specific risks of bleeding, infection, and pneumothorax requiring chest tube insertion were discussed and accepted. Written informed consent was obtained. Ultrasonographic evaluation of the left lower pleural space was carried out. An adequate pocket was identified. The patient was placed in the sitting, upright position. The overlying skin was prepped and draped in sterile fashion. 1% lidocaine was administered subcutaneously for local anesthesia. Under ultrasound guidance, a 5 [place] thoracentesis needle/catheter system was advanced into the left posterior lower pleural fluid collection. Approximately 1990 mL of clear yellow fluid was drained and discarded. The catheter was removed, and a sterile dressing was applied. The patient tolerated the procedure well. A chest x-ray was ordered with no sizable pneumothorax demonstrated. The patient was returned to the floor in stable condition. US/Thoracentesis W US IMPRESSION: Ultrasound-guided therapeutic left thoracentesis. Electronically Signed: Ney Martino, at 15:38 EST ,
[2021-12-26] MEDS: Glucerna Shake 120 ML LIQUID 60 ML PO ×2 (09:33→11:35)
[2021-12-26] MEDS: Pantoprazole Sodium 20 MG Tablet PO (09:33)
[2021-12-26] MEDS: Lisinopril 5 MG Tablet PO (09:33)
[2021-12-26] MEDS: dilTIAZem CD 120 MG Capsule PO ×2 (09:33→21:14)
[2021-12-26] MEDS: Morphine 2 MG/ML Syringe IV ×3 (09:34→20:54)
[2021-12-26] MEDS: Insulin Glargine-YFGN 100 UNIT/ML Pen 25 UNIT SC ×2 (09:34→21:06)
[2021-12-26] MEDS: 0.9% Saline Lock 10 ML Syringe IV ×2 (09:35→15:02)
[2021-12-26] MEDS: Insulin Lispro 100 UNIT/ML INSULN.PEN SC ×2 (11:36→21:05)
[2021-12-26 12:01] LABS: Bedside Glucose 222 mg/dL (74-106)
--- NOTE | 2021-12-26 12:56 | CASEMGMT ---
Readmission chart review: 12/06-12/13/21 Pleural effusion, pna 12/25/21-current A on C CHF, left pleural effusion Pt initially admitted from home for increased SOB for last month. Pt admitted to PCU for above diagnosis. Pt is on home oxygen thru his trach, 2L continuous and 4L at bedside and pt was requiring increased oxygen while here. Pt states recent OP thoracentesis'. Pt had left thora while here with 1500cc out. Pt did not qualify for increased home oxygen at discharge and declined need for any further therapy. Pt was set up with f/u appts with PCP and pulm office(01/09/22). Per Dr. Doan's note, pt should have OP CXR 2 weeks from d/c to check on fluid accumulation. Pt provided with new pulse ox at discharge. Pt returned to [facility] ED on 12/25/21 for increased SOB for couple days. Pt's CXR with 1. Massive left subpulmonic fluid, worse since 12/11/2021. 2. Compressive atelectasis in the bottom two thirds of the left lung, worse since 12/11/2021. Pt tachycardic and tachypnic and currently on 10L via trach collar. Pt scheduled to have repeat thoracentesis today. Pulm consulted again for pt. CM to follow for increased home oxygen and any further discharge planning/needs. Juli TAVARES CM
[2021-12-26] MEDS: Lidocaine 2% (20 ml mdv) 20 ML Vial INFILT (14:03)
--- NOTE | 2021-12-26 14:15 | RAD_ITS ---
STUDY: X-RAY CHEST REASON FOR EXAM: Male, 66 years old. pneumothorax -- immediately post thoracentesis TECHNIQUE: XR Chest 2 Views COMPARISON: Yesterday FINDINGS: There is atherosclerotic calcification of the aortic arch with tortuosity. There are diffuse degenerative changes of the visualized thoracic spine. There is degenerative osteoarthritis of the bilateral shoulders. There is a left pleural effusion. There is left infiltrate / atelectasis. There is a tracheostomy tube. The tip is at the level of the clavicles. There is no pneumothorax. Normal size heart. Normal mediastinum and laura. Normal visualized pulmonary arteries. There is no demonstrated abnormality of the visualized soft tissue structures of the upper abdomen. RAD/Chest Insp/Exp 2 View IMPRESSION: There are no acute findings. Electronically Signed: Piter Weiss MD at 14:48 EST ,
--- NOTE | 2021-12-26 16:00 | RAD_ITS ---
STUDY: X-RAY CHEST REASON FOR EXAM: Male, 66 years old. pneumothorax -- 2 hours post thoracentesis TECHNIQUE: XR Chest 2 Views COMPARISON: Study done earlier today. FINDINGS: There is atherosclerotic calcification of the aortic arch with tortuosity. There are diffuse degenerative changes of the visualized thoracic spine. There is degenerative osteoarthritis of the bilateral shoulders. There is a left pleural effusion. There is left infiltrate / atelectasis. There is a tracheostomy tube. The tip is at the level of the clavicles. There is no pneumothorax. There is borderline cardiomegaly. Normal mediastinum and laura. Normal visualized pulmonary arteries. There is no demonstrated abnormality of the visualized soft tissue structures of the upper abdomen. RAD/Chest Insp/Exp 2 View IMPRESSION: There has been no change in the appearance of the chest since the prior study. Electronically Signed: Piter Weiss MD at 16:16 EST ,
--- NOTE | 2021-12-26 16:35 | PN.HOSP_ITS ---
Subjective Subjective Follow-up for acute on recurrent left-sided pleural effusion due to HF exacerbation Multiple other comorbidities. Objective Data Objective Data Vital Signs: Vital Signs Temp Pulse Resp BP Pulse Ox O2 Del Method O2 Flow Rate 98.0 F 76 18 102/65 98 Trach Collar 9 12/26/21 15:00 12/26/21 15:00 12/26/21 15:00 12/26/21 15:00 12/26/21 15:00 12/26/21 15:00 12/26/21 15:00 FiO2 35 12/26/21 15:00 Oxygen Flow Rate (L/min) [8] 8 Oxygen Flow Rate (L/min) [7] 8 Oxygen Flow Rate (L/min) [6] 8 Oxygen Flow Rate (L/min) [5] 8 Oxygen Flow Rate (L/min) [4] 8 Oxygen Flow Rate (L/min) [3] 8 Oxygen Flow Rate (L/min) [2] 8 Oxygen Flow Rate (L/min) [1 ( 8 Initial Baseline)] Oxygen Flow Rate (L/min) 9 Oxygen Delivery Method [8] Venturi Mask Oxygen Delivery Method [7] Venturi Mask Oxygen Delivery Method [6] Venturi Mask Oxygen Delivery Method [5] Venturi Mask Oxygen Delivery Method [4] Venturi Mask Oxygen Delivery Method [3] Nasal Cannula Oxygen Delivery Method [2] Venturi Mask Oxygen Delivery Method [1 ( Venturi Mask Initial Baseline)] Oxygen Delivery Method Trach Collar Weight: 302 lb 0.533 oz Body Mass Index (BMI) 42.1 Intake & Output: Intake and Output for Last 24 Hours 12/24/21 12/25/21 12/26/21 23:59 23:59 23:59 Intake Total 577.45 / 577.45 Output Total 2810 / 2810 Balance -2232.55 / -2232.55 Lab / Micro Data Result Diagrams: 12/26/21 04:35 12/26/21 04:35 Labs: Laboratory Results - last 24 hr 12/25/21 20:37: POC Glucose 94 12/26/21 04:35: WBC 8.7, RBC 3.24 L, Hgb 9.3 L, Hct 29.2 L, MCV 90.1, MCH 28.7, MCHC 31.8 L, RDW Std Deviation 41.1, RDW Coeff of Alisson 12.5, Plt Count 343, MPV 9.7, Immature Gran % (Auto) 0.300, Neut % (Auto) 75.6 H, Lymph % (Auto) 10.3 L, Motley % (Auto) 11.0 H, Eos % (Auto) 2.2, Baso % (Auto) 0.6, Absolute Neuts (auto) 6.6, Absolute Lymphs (auto) 0.90, Nucleated RBC % 0 12/26/21 04:35: Sodium 139, Potassium 3.8, Chloride 99, Carbon Dioxide 33.0 H, Anion Gap 7, BUN 33 H, Creatinine 1.70 H, Estim Creat Clear Calc 45.52, Est GFR (MDRD) Af Amer 52 L, Est GFR (MDRD) Non-Af 43 L, BUN/Creatinine Ratio 19.4, Glucose 132 H, Calcium 8.0 L 12/26/21 06:23: POC Glucose 115 H 12/26/21 11:35: POC Glucose 222 H Radiography Diagnostic Testing: Radiology Impression Thoracentesis Ultrasound 12/26/21 08:07 IMPRESSION: Ultrasound-guided therapeutic left thoracentesis. Electronically Signed: Ney Martino, at 15:38 EST , Chest X-Ray 12/26/21 14:15 IMPRESSION: There are no acute findings. Electronically Signed: Piter Weiss MD at 14:48 EST , Chest X-Ray 12/26/21 16:00 IMPRESSION: There has been no change in the appearance of the chest since the prior study. Electronically Signed: Piter Weiss MD at 16:16 EST , Physical Exam Narrative Patient has worsening shortness of breath for last 2 days. Physical exam General: Alert, Oriented x3, Cooperative, morbid obesity BMI 42.1 kg/m? HEENT: S/p tracheostomy on trach collar. Atraumatic, PERRLA, EOMI, Normocepha lic Oral: No Gingival or Mucosal Lesions/ Ulcerations Neck: Supple, No JVD, Negative Carotid Bruits Lungs: Air entry diminished on the left lower half posteriorly. Stony dullness suggestive of large left pleural effusion. Cardiovascular: Irregular rhythm, Normal S1, Normal S2, No murmurs Abdomen: Bowel Sounds Present, Soft, Non Tender, Non-Distended : No renal angle tenderness. No suprapubic tenderness. Extremities: 2+ pitting below knee edema, Capillary Refill Less than 3 Seconds Skin: No rashes, No breakdown Musculoskeletal: No Tenderness to Palpation of Joints or Extremities Neurological: Cranial nerves II-XII grossly intact, DTR 2+/4 and Symmetrical, Neuro grossly intact Psych/Mental Status: Assessment & Plan Assessment/Plan (1) Chronic diastolic (congestive) heart failure: PLAN: Plan 1. Acute on chronic diastolic congestive heart failure-patient is being admitted in PCU. On IV Lasix. Last echo in October 2021 EF 55%. Normal RV size and systolic function. On IV Lasix. Heart failure core measures including intake and output, fluid restriction less than 1500 mL, daily weight monitoring, kidney and electrolytes monitoring. Patient and interdisciplinary round. Re ason for recurrent admission is left pleural effusion along with probably patient not treated with low-salt diet. #2 acute recurrent left pleural effusion-patient had thoracocentesis repeatedly on previous admission. It is of transudative in nature. Patient had ultrasound-guided 1990 mL thoracocentesis on 12/26. Patient was seen by extruder operator multiple. Recommended Pleurx catheter/pleurodesis. I further talked to the surgeon Dr. HARRISON and he suggested patient needs pleurodesis. Patient not candidate for Pleurx catheter as it is done for hospice patient. Will need to outpatient follow-up with thoracic surgeon for pleurodesis. #3 chronic atrial fib-resume Eliquis after 24 hours thoracocentesis. #4 morbid obesity-complicates care, management, recovery, and prognosis #5 chronic obstructive pulmonary disease-patient is on oxygen at 4 L at night, this will be continued, his home medications will be continued #6 chronic hypoxic respiratory failure, laryngeal cancer status post larynge ctomy on trach collar- #7 type 2 diabetes-patient's blood sugars will be monitored, sliding scale i nsulin will be used #8 hypothyroidism-patient will remain on his home medication #9 chronic kidney disease stage IIIa-kidney function at baseline Total time of the visit including total time spent in counseling or coordination of care, (more than 50% of the total time, spent in obtaining medical information from nurses and other ancillary care providers,explaining to the patient about labs, imaging, diagnosis and management of active complex medical conditions), discussion with extruder operator multiple/correctional therapy teacher and surgeon, interdisciplinary round, review of labs and imaging is 45 minutes. Laboratory Results 12/25/21 20:37: POC Glucose 94 12/26/21 04:35: WBC 8.7, RBC 3.24 L, Hgb 9.3 L, Hct 29.2 L, MCV 90.1, MCH 28.7, MCHC 31.8 L, RDW Std Deviation 41.1, RDW Coeff of Alisson 12.5, Plt Count 343, MPV 9.7, Immature Gran % (Auto) 0.300, Neut % (Auto) 75.6 H, Lymph % (Auto) 10.3 L, Motley % (Auto) 11.0 H, Eos % (Auto) 2.2, Baso % (Auto) 0.6, Absolute Neuts (auto) 6.6, Absolute Lymphs (auto) 0.90, Nucleated RBC % 0 12/26/21 04:35: Sodium 139, Potassium 3.8, Chloride 99, Carbon Dioxide 33.0 H, Anion Gap 7, BUN 33 H, Creatinine 1.70 H, Estim Creat Clear Calc 45.52, Est GFR (MDRD) Af Amer 52 L, Est GFR (MDRD) Non-Af 43 L, BUN/Creatinine Ratio 19.4, Glucose 132 H, Calcium 8.0 L 12/26/21 06:23: POC Glucose 115 H 12/26/21 11:35: POC Glucose 222 H Charges/Coding Visit Charges Inpatient E&M: 44553 Subs Hosp L3
[2021-12-26] MEDS: Atorvastatin Calcium 40 MG Tablet PO (16:38)
[2021-12-26 16:55] LABS: Bedside Glucose 97 mg/dL (74-106)
[2021-12-26 21:35] LABS: Bedside Glucose 249 mg/dL (74-106)
[2021-12-27] VITALS (14 sets, daily range): BP systolic 101–111; BP diastolic 58–73; PULSE 65–103; RESP 18–22; TEMP 36.3–37; O2SAT 95–100
[2021-12-27] MEDS: Furosemide 500 MG in Empty Viaflex 50 mL 1 EACH CONT INF (00:06)
[2021-12-27] MEDS: Morphine 2 MG/ML Syringe IV ×3 (01:10→21:14)
[2021-12-27] MEDS: 0.9% Saline Lock 10 ML Syringe IV ×3 (01:11→21:14)
[2021-12-27] MEDS: Ipratropium/Albuterol Sulfate 3 ML AMPUL.NEB INHALATION ×4 (03:10→20:05)
[2021-12-27 05:59] LABS: Anion Gap 6 (5-15); BUN 45 mg/dL (7-18); BUN/Creat Ratio 19.7 RATIO (10-20); Calcium,Total 8.3 mg/dL (8.5-10.1); Chloride 97 mmol/L (98-107); Creatinine, Serum 2.29 mg/dL (0.70-1.30); EST Glomerular Filtration Rate 31 mL/min (>60); Est Glom Filt Rate - Afr Amer 37 mL/min (>60); Glucose 72 mg/dL (74-106); Potassium 3.9 mmol/L (3.5-5.1); Sodium Level 136 mmol/L (136-145)
[2021-12-27] MEDS: Levothyroxine 150 MCG Tablet PO (06:38)
[2021-12-27 07:00] LABS: Bedside Glucose 76 mg/dL (74-106)
[2021-12-27] MEDS: Budesonide Respules 0.5 MG/2 ML AMPUL.NEB. INHALATION ×2 (08:07→20:05)
--- NOTE | 2021-12-27 08:28 | PCM.PN.INT ---
Documented by User: Dr. Maxi Doan MD 12/27/21 16:17 Assessment & Plan Assessment/Plan (1) Recurrent left pleural effusion: PLAN: Plan RECOMMENDATIONS: 1. Wean trach collar oxygen to baseline as tolerated to maintain saturations greater than 90%. 2. Discontinue diuresis, in light of decreased renal function. 3. Continue bronchodilators, as ordered. 4. Will need outpatient follow-up with thoracic surgeon regarding Pleurx catheter versus pleurodesis. 5. Obtain portable chest x-ray given continued pain IMPRESSIONS: 1. Recurrent transudative left pleural effusion This patient has had recurrent left sided pleural effusions since October 2021, with 4 thoracentesis since that time. Analysis from 12/07/2021 revealed a transudative fluid. Thoracentesis performed 12/17/21 drained 1990ml. The patient is requiring increased oxygen through trach collar, as compared to baseline, but improving. Clinical suspicion for restriction secondary to pleural effusion leading to increased oxygen demands. Given the rapidity of fluid reaccumulation, despite medication adherence and low sodium diet, recommend outpatient referral to thoracic surgery to pursue possible Pleurx catheter versus pleurodesis. Patient does report that his tracheostomy was performed at [facility], and he would be agreeable to referral there. Recommend consulting case management to arrange outpatient appointment. 2. History of laryngeal cancer status post tracheostomy/morbid obesity/hypothyroidism/COPD/chronic respiratory failure/paroxysmal A. fib Complicates care, management, recovery and prognosis. Continue home medications as indicated. Patient does not appear to have concomitant pneumonia or other infectious etiology at this time. Subjective Subjective Patient is sitting upright in chair, eating crackers. Patient reports minimal change in dyspnea; however, has been able to ambulate to bathroom 3 times overnight. Continues to complain of pain in left mid back, just inferior to the scapula. This pain is persisted throughout the day. No hemoptysis has been reported. Objective Data Objective Data Vital Signs: Vital Signs Temp Pulse Resp BP Pulse Ox O2 Del Method O2 Flow Rate 36.7 C 78 18 111/58 L 99 Trach Collar 8 12/27/21 03:11 12/27/21 08:11 12/27/21 08:11 12/27/21 03:11 12/27/21 08:11 12/27/21 08:11 12/27/21 08:11 FiO2 30 12/27/21 08:11 Oxygen Flow Rate (L/min) [8] 8 Oxygen Flow Rate (L/min) [7] 8 Oxygen Flow Rate (L/min) [6] 8 Oxygen Flow Rate (L/min) [5] 8 Oxygen Flow Rate (L/min) [4] 8 Oxygen Flow Rate (L/min) [3] 8 Oxygen Flow Rate (L/min) [2] 8 Oxygen Flow Rate (L/min) [1 ( 8 Initial Baseline)] Oxygen Flow Rate (L/min) 8 Oxygen Delivery Method [8] Venturi Mask Oxygen Delivery Method [7] Venturi Mask Oxygen Delivery Method [6] Venturi Mask Oxygen Delivery Method [5] Venturi Mask Oxygen Delivery Method [4] Venturi Mask Oxygen Delivery Method [3] Nasal Cannula Oxygen Delivery Method [2] Venturi Mask Oxygen Delivery Method [1 ( Venturi Mask Initial Baseline)] Oxygen Delivery Method Trach Collar Weight: 135.9 kg Body Mass Index (BMI) 42.1 Intake & Output: Intake and Output for Last 24 Hours 12/25/21 12/26/21 12/27/21 23:59 23:59 23:59 Intake Total 1057.45 / 1057.45 549.1 / 549.1 Output Total 2810 / 2810 Balance -1752.55 / -1752.55 549.1 / 549.1 Lab / Micro Data Attestation: I reviewed the patient's lab results. Result Diagrams: 12/26/21 04:35 12/27/21 04:33 Labs: Laboratory Results - last 24 hr 12/26/21 11:35: POC Glucose 222 H 12/26/21 16:34: POC Glucose 97 12/26/21 21:04: POC Glucose 249 H 12/27/21 04:33: Sodium 136, Potassium 3.9, Chloride 97 L, Carbon Dioxide 33.0 H, Anion Gap 6, BUN 45 H, Creatinine 2.29 H, Estim Creat Clear Calc 33.80, Est GFR (MDRD) Af Amer 37 L, Est GFR (MDRD) Non-Af 31 L, BUN/Creatinine Ratio 19.7, Glucose 72 L, Calcium 8.3 L 12/27/21 06:34: POC Glucose 76 Radiography Diagnostic Testing: Radiology Impression Thoracentesis Ultrasound 12/26/21 08:07 IMPRESSION: Ultrasound-guided therapeutic left thoracentesis. Electronically Signed: Ney Martino, at 15:38 EST , Chest X-Ray 12/26/21 14:15 IMPRESSION: There are no acute findings. Electronically Signed: Piter Weiss MD at 14:48 EST , Chest X-Ray 12/26/21 16:00 IMPRESSION: There has been no change in the appearance of the chest since the prior study. Electronically Signed: Piter Weiss MD at 16:16 EST , Physical Exam Const alert and oriented x3 Constitutional Narrative: Obese white male, sitting upright in bed with trach collar in place. Able to vocalize General Appearance: cooperative and well developed; Negative for in distress HEENT normocephalic, head/scalp atraumatic and moist oral mucous membranes Eyes PERRL, EOMs intact bilaterally, conjunctivae normal and no scleral icterus Neck no lymphadenopathy and supple General: trachea midline Chest inspection of chest normal Chest Narrative: Pain on palpation 2-3 rib spaces around thoracentesis site. No ecchymosis or induration is appreciated. Resp normal respiratory effort and no use of accessory muscles Resp Narrative: Patient's oxygen requirements have continued to improve throughout the day Effort and Inspection: able to speak in complete sentences; Negative for tachypneic, labored or actively coughing Auscultation: Negative for rales, rhonchi or wheezes Percussion: dullness Mid: left and Lower: left Cardio regular rate, regular rhythm, S1 normal heart sound, S2 normal heart sound, no murmurs, no rub and no gallops GI normal to inspection, nondistended, normoactive bowel sounds, soft to palpation and non-tender GI Narrative: Obese abdomen. Back/Spine Back/Spine Narrative: Tenderness across mid back, chronic. Extremity Extremity Narrative: Bilateral lower extremity edema, right greater than left. DAVY hose in place. General Extremity: edema bilateral (2+ bilateral lower extremity); Negative for clubbing Skin no rashes or lesions noted General Skin Exam: venous stasis Neuro oriented x3, CN's II-XII intact bilaterally, moves all extremities and no focal motor deficits Speech: speech normal Psych cooperative and affect normal Charges/Coding Visit Charges Inpatient E&M: 06988 Subs Hosp L2 Documented by User: OLIVIA SEWELL 12/27/21 10:03 Assessment & Plan Assessment/Plan (1) Recurrent left pleural effusion: PLAN: Plan RECOMMENDATIONS: 1. Wean trach collar oxygen to baseline as tolerated to maintain saturations greater than 90%. 2. Discontinue diuresis, in light of decreased renal function. 3. Continue bronchodilators, as ordered. 4. Will need outpatient follow-up with thoracic surgeon regarding Pleurx catheter versus pleurodesis. IMPRESSIONS: 1. Recurrent transudative left pleural effusion This patient has had recurrent left sided pleural effusions since October 2021, with 4 thoracentesis since that time. Analysis from 12/07/2021 revealed a transudative fluid. Thoracentesis performed 12/17/21 drained 1990ml. The patient is requiring increased oxygen through trach collar, as compared to baseline. Clinical suspicion for restriction secondary to pleural effusion leading to increased oxygen demands. Given the rapidity of fluid reaccumulation, despite medication adherence and low sodium diet, recommend outpatient referral to thoracic surgery to pursue possible Pleurx catheter versus pleurodesis. Patient does report that his tracheostomy was performed at [facility], and he would be agreeable to referral there. Recommend consulting case management to arrange outpatient appointment. 2. History of laryngeal cancer status post tracheostomy/morbid obesity/hypothyroidism/COPD/chronic respiratory failure/paroxysmal A. fib Complicates care, management, recovery and prognosis. Continue home medications as indicated. Patient does not appear to have concomitant pneumonia or other infectious etiology at this time. Subjective Subjective Patient is sitting upright in chair, eating crackers. Patient reports minimal change in dyspnea; however, has been able to ambulate to bathroom 3 times overnight. Continues to complain of pain in left mid back, just inferior to the scapula. Objective Data Lab / Micro Data Attestation: I reviewed the patient's lab results. Result Diagrams: 12/26/21 04:35 12/27/21 04:33 Physical Exam Const alert and oriented x3 Constitutional Narrative: Obese white male, sitting upright in chair with trach collar in place. Able to vocalize. General Appearance: cooperative and well developed; Negative for in distress HEENT normocephalic, head/scalp atraumatic and moist oral mucous membranes Eyes PERRL, EOMs intact bilaterally, conjunctivae normal and no scleral icterus Neck no lymphadenopathy and supple General: trachea midline Chest inspection of chest normal Resp normal respiratory effort and no use of accessory muscles Effort and Inspection: able to speak in complete sentences and actively coughing productive (yellow/brown); Negative for tachypneic or labored Auscultation: clear to auscultation bilaterally; Negative for rhonchi, wheezes or diminished lung sounds Cardio regular rate, regular rhythm, S1 normal heart sound, S2 normal heart sound, no murmurs, no rub and no gallops GI normal to inspection, nondistended, normoactive bowel sounds, soft to palpation and non-tender Back/Spine Back/Spine Narrative: Left back TTP. Extremity General Extremity: edema bilateral (2+ bilateral lower extremity.); Negative for clubbing Skin no rashes or lesions noted General Skin Exam: venous stasis Neuro oriented x3, CN's II-XII intact bilaterally, moves all extremities and no focal motor deficits Speech: speech normal Psych cooperative and affect normal
[2021-12-27] MEDS: Lisinopril 5 MG Tablet PO (08:30)
[2021-12-27] MEDS: dilTIAZem CD 120 MG Capsule PO ×2 (08:31→21:15)
[2021-12-27] MEDS: Pantoprazole Sodium 20 MG Tablet PO (08:31)
--- NOTE | 2021-12-27 09:37 | PN.HOSP_ITS ---
Subjective Subjective Follow-up for recurrent pleural effusion and acute on chronic heart failure. Patient had thoracocentesis yesterday. Shortness of breath is better. Creatinine went up therefore Lasix drip is discontinued. Lisinopril on hold. Objective Data Objective Data Vital Signs: Vital Signs Temp Pulse Resp BP Pulse Ox O2 Del Method O2 Flow Rate 98.0 F 78 18 111/58 L 99 Trach Collar 8 12/27/21 03:11 12/27/21 08:11 12/27/21 08:11 12/27/21 03:11 12/27/21 08:11 12/27/21 08:11 12/27/21 08:11 FiO2 30 12/27/21 08:11 Oxygen Flow Rate (L/min) [8] 8 Oxygen Flow Rate (L/min) [7] 8 Oxygen Flow Rate (L/min) [6] 8 Oxygen Flow Rate (L/min) [5] 8 Oxygen Flow Rate (L/min) [4] 8 Oxygen Flow Rate (L/min) [3] 8 Oxygen Flow Rate (L/min) [2] 8 Oxygen Flow Rate (L/min) [1 ( 8 Initial Baseline)] Oxygen Flow Rate (L/min) 8 Oxygen Delivery Method [8] Venturi Mask Oxygen Delivery Method [7] Venturi Mask Oxygen Delivery Method [6] Venturi Mask Oxygen Delivery Method [5] Venturi Mask Oxygen Delivery Method [4] Venturi Mask Oxygen Delivery Method [3] Nasal Cannula Oxygen Delivery Method [2] Venturi Mask Oxygen Delivery Method [1 ( Venturi Mask Initial Baseline)] Oxygen Delivery Method Trach Collar Weight: 299 lb 9.731 oz Body Mass Index (BMI) 42.1 Intake & Output: Intake and Output for Last 24 Hours 12/25/21 12/26/21 12/27/21 23:59 23:59 23:59 Intake Total 1057.45 / 1057.45 549.1 / 549.1 Output Total 2810 / 2810 Balance -1752.55 / -1752.55 549.1 / 549.1 Lab / Micro Data Result Diagrams: 12/26/21 04:35 12/27/21 04:33 Labs: Laboratory Results - last 24 hr 12/26/21 11:35: POC Glucose 222 H 12/26/21 16:34: POC Glucose 97 12/26/21 21:04: POC Glucose 249 H 12/27/21 04:33: Sodium 136, Potassium 3.9, Chloride 97 L, Carbon Dioxide 33.0 H, Anion Gap 6, BUN 45 H, Creatinine 2.29 H, Estim Creat Clear Calc 33.80, Est GFR (MDRD) Af Amer 37 L, Est GFR (MDRD) Non-Af 31 L, BUN/Creatinine Ratio 19.7, Glucose 72 L, Calcium 8.3 L 12/27/21 06:34: POC Glucose 76 Radiography Diagnostic Testing: Radiology Impression Thoracentesis Ultrasound 12/26/21 08:07 IMPRESSION: Ultrasound-guided therapeutic left thoracentesis. Electronically Signed: Ney Ozunael, at 15:38 EST , Chest X-Ray 12/26/21 14:15 IMPRESSION: There are no acute findings. Electronically Signed: Piter Weiss MD at 14:48 EST , Chest X-Ray 12/26/21 16:00 IMPRESSION: There has been no change in the appearance of the chest since the prior study. Electronically Signed: Piter Weiss MD at 16:16 EST , Physical Exam Narrative Patient has worsening shortness of breath for last 2 days. Physical exam General: Alert, Oriented x3, Cooperative, morbid obesity BMI 42.1 kg/m? HEENT: S/p tracheostomy on trach collar. Atraumatic, PERRLA, EOMI, Normocephalic Oral: No Gingival or Mucosal Lesions/ Ulcerations Neck: Supple, No JVD, Negative Carotid Bruits Lungs: Air entry improved on the left lower half posteriorly. Left pleural effusion is decreased. Cardiovascular: Irregular rhythm, Normal S1, Normal S2, No murmurs Abdomen: Bowel Sounds Present, Soft, Non Tender, Non-Distended : No renal angle tenderness. No suprapubic tenderness. Extremities: 2+ pitting below knee edema, Capillary Refill Less than 3 Seconds Skin: No rashes, No breakdown Musculoskeletal: No Tenderness to Palpation of Joints or Extremities Neurological: Cranial nerves II-XII grossly intact, DTR 2+/4 and Symmetrical, Neuro grossly intact Psych/Mental Status: Flat affect. Assessment & Plan Assessment/Plan (1) Chronic diastolic (congestive) heart failure: PLAN: Plan 1. Acute on chronic diastolic congestive heart failure-patient is being admitted in PCU. On IV Lasix. Last echo in October 2021 EF 55%. Normal RV size and systolic function. On IV Lasix. Heart failure core measures including intake and output, fluid restriction less than 1500 mL, daily weight monitoring, kidney and electrolytes monitoring. Patient and interdisciplinary round. Reason for recurrent admission is left pleural effusion along with probably patient not treated with low-salt diet. 12/27: Lasix drip discontinued as patient creatinine went up. Lisinopril on hold. Discussed with the nursing staff. #2 acute recurrent left pleural effusion-patient had thoracocentesis repeatedly on previous admission. It is of transudative in nature. Patient had ultrasound-guided 1990 mL thoracocentesis on 12/26. Patient was seen by type bar and segment assembler. Recommended Pleurx catheter/pleurodesis. I further talked to the surgeon Dr. HARRISON and he suggested patient needs pleurodesis. Patient not candidate for Pleurx catheter as it is done for hospice patient. Will need to outpatient follow-up with thoracic surgeon for pleurodesis. 10/27: Discussed with the senior process engineer and will need outpatient appointment with thoracic surgeon in [facility] As he has been [facility] before #3 chronic atrial fib-resume Eliquis after 24 hours thoracocentesis. 12/27: Resume Eliquis per #4 morbid obesity-complicates care, management, recovery, and prognosis #5 chronic obstructive pulmonary disease-patient is on oxygen at 4 L at night, this will be continued, his home medications will be continued #6 chronic hypoxic respiratory failure, laryngeal cancer status post laryngectomy on trach collar- #7 type 2 diabetes-patient's blood sugars , sliding scale insulin is used. 12/27 blood sugar is reasonably well controlled. In the morning it was 76 on lower side. But at 11 AM and 9 PM on 12/26 his glucose was high more than 200. Lantus dose decreased to 18 subcutaneous twice daily. Humalog insulin 5/3 times daily with meals with holding parameter. #8 hypothyroidism-patient will remain on his home medication #9 chronic kidney disease stage IIIa-kidney function at baseline Total time of the visit including total time spent in counseling or coordination of care, (more than 50% of the total time, spent in obtaining medical information from nurses and other ancillary care providers,explaining to the patient about labs, imaging, diagnosis and management of active complex medical conditions), discussion with type bar and segment assembler/senior process engineer and surgeon, interdisciplinary round, review of labs and imaging is 45 minutes. Laboratory Results 12/26/21 11:35: POC Glucose 222 H 12/26/21 16:34: POC Glucose 97 12/26/21 21:04: POC Glucose 249 H 12/27/21 04:33: Sodium 136, Potassium 3.9, Chloride 97 L, Carbon Dioxide 33.0 H, Anion Gap 6, BUN 45 H, Creatinine 2.29 H, Estim Creat Clear Calc 33.80, Est GFR (MDRD) Af Amer 37 L, Est GFR (MDRD) Non-Af 31 L, BUN/Creatinine Ratio 19.7, Glucose 72 L, Calcium 8.3 L 12/27/21 06:34: POC Glucose 76 Charges/Coding Visit Charges Inpatient E&M: 46645 Subs Hosp L3
[2021-12-27] MEDS: Insulin Lispro 100 UNIT/ML INSULN.PEN SC ×2 (11:28)
[2021-12-27 11:50] LABS: Bedside Glucose 214 mg/dL (74-106)
[2021-12-27] MEDS: APIXABAN 5 MG TABLET PO (16:22)
[2021-12-27] MEDS: Atorvastatin Calcium 40 MG Tablet PO (16:23)
--- NOTE | 2021-12-27 16:35 | RAD_ITS ---
EXAM: XR CHEST, 1 VIEW CLINICAL INDICATION: Chest pain status post thoracentesis TECHNIQUE: Frontal view of the chest. This report was created using [employer] report generation technology. COMPARISON: XR Chest dated 12/26/2021 FINDINGS: LUNGS AND PLEURAL SPACES: Residual small left pleural effusion. Lingular density is unchanged consistent with area of pneumonia/atelectasis. No pneumothorax. HEART: Normal heart size. MEDIASTINUM: No mediastinal or hilar mass. BONES/JOINTS: No acute abnormality. SOFT TISSUES: Normal. TUBES, LINES AND DEVICES: Tracheostomy tube remains in place. RAD/Chest 1 View (Portable) IMPRESSION: No interval change. Electronically Signed: Manuel Calvin MD at 16:47 EST ,
[2021-12-27 17:25] LABS: Bedside Glucose 73 mg/dL (74-106)
[2021-12-27 21:40] LABS: Bedside Glucose 118 mg/dL (74-106)
[2021-12-28] VITALS (14 sets, daily range): BP systolic 105–117; BP diastolic 58–69; PULSE 84–103; RESP 18–21; TEMP 36.3–37; O2SAT 88–98
[2021-12-28] MEDS: Ipratropium/Albuterol Sulfate 3 ML AMPUL.NEB INHALATION ×4 (01:20→18:53)
[2021-12-28] MEDS: Morphine 2 MG/ML Syringe IV ×2 (01:51→15:10)
[2021-12-28] MEDS: 0.9% Saline Lock 10 ML Syringe IV ×2 (01:51→15:10)
[2021-12-28] MEDS: Levothyroxine 150 MCG Tablet PO (06:28)
[2021-12-28 06:35] LABS: Anion Gap 8 (5-15); BUN 52 mg/dL (7-18); BUN/Creat Ratio 22.4 RATIO (10-20); Calcium,Total 7.8 mg/dL (8.5-10.1); Chloride 95 mmol/L (98-107); Creatinine, Serum 2.32 mg/dL (0.70-1.30); EST Glomerular Filtration Rate 30 mL/min (>60); Est Glom Filt Rate - Afr Amer 36 mL/min (>60); Estimated Creatinine Clearance 33.36 ml/min; Glucose 139 mg/dL (74-106); Potassium 4.1 mmol/L (3.5-5.1); Sodium Level 134 mmol/L (136-145)
[2021-12-28] MEDS: Budesonide Respules 0.5 MG/2 ML AMPUL.NEB. INHALATION ×2 (06:45→18:53)
--- NOTE | 2021-12-28 07:29 | NURSING ---
Charting reviewed with Dianna TAVARES.
[2021-12-28] MEDS: APIXABAN 5 MG TABLET PO ×2 (08:13→22:33)
[2021-12-28] MEDS: dilTIAZem CD 120 MG Capsule PO ×2 (08:13→22:33)
[2021-12-28] MEDS: Pantoprazole Sodium 20 MG Tablet PO (08:13)
[2021-12-28 08:35] LABS: Bedside Glucose 121 mg/dL (74-106)
--- NOTE | 2021-12-28 10:26 | PN.CC_ITS ---
Assessment & Plan Assessment/Plan (1) Recurrent left pleural effusion: PLAN: Plan RECOMMENDATIONS: 1. Wean trach collar oxygen to baseline as tolerated to maintain saturations greater than 90%. 2. Likely reinitiate diuretics once renal function improves 3. Continue bronchodilators, as ordered. 4. Will need outpatient follow-up with thoracic surgeon regarding Pleurx catheter versus pleurodesis. 5. Potential discharge later today with close follow-up with thoracic surge ry IMPRESSIONS: 1. Recurrent transudative left pleural effusion This patient has had recurrent left sided pleural effusions since October 2021, with 5 thoracentesis since that time. Analysis from 12/07/2021 revealed a transudative fluid. Thoracentesis performed 12/17/21 drained 1990ml. Repeat chest x-ray did not show any complications of the procedure. The patient is requiring increased oxygen through trach collar, as compared to tyson nash, but improving. Clinical suspicion for restriction secondary to pleural effusion leading to increased oxygen demands. Given the rapidity of fluid reaccumulation, despite medication adherence and low sodium diet, recommend outpatient referral to thoracic surgery to pursue possible Pleurx catheter versus pleurodesis. Patient does report that his tracheostomy was performed at [facility], and he would be agreeable to referral there. Recommend consulting case management to arrange outpatient appointment. Potential discharge later today 2. History of laryngeal cancer status post tracheostomy/morbid obesity/hypothyroidism/COPD/chronic respiratory failure/paroxysmal A. fib Complicates care, management, recovery and prognosis. Continue home medications as indicated. Patient does not appear to have concomitant pneumonia or other infectious etiology at this time. Subjective Subjective Patient did well overnight. Patient states his chest pain is improving compared to previous. Oxygenation status continues to improve. Patient is not reporting a productive cough. Objective Data Objective Data Vital Signs: Vital Signs Temp Pulse Resp BP Pulse Ox O2 Del Method O2 Flow Rate 36.3 C L 92 20 H 116/58 L 96 Trach Collar 7 12/28/21 09:10 12/28/21 09:10 12/28/21 09:10 12/28/21 09:10 12/28/21 09:10 12/28/21 10:16 12/28/21 10:16 FiO2 28 12/28/21 10:16 Oxygen Flow Rate (L/min) [8] 8 Oxygen Flow Rate (L/min) [7] 8 Oxygen Flow Rate (L/min) [6] 8 Oxygen Flow Rate (L/min) [5] 8 Oxygen Flow Rate (L/min) [4] 8 Oxygen Flow Rate (L/min) [3] 8 Oxygen Flow Rate (L/min) [2] 8 Oxygen Flow Rate (L/min) [1 ( 8 Initial Baseline)] Oxygen Flow Rate (L/min) 7 Oxygen Delivery Method [8] Venturi Mask Oxygen Delivery Method [7] Venturi Mask Oxygen Delivery Method [6] Venturi Mask Oxygen Delivery Method [5] Venturi Mask Oxygen Delivery Method [4] Venturi Mask Oxygen Delivery Method [3] Nasal Cannula Oxygen Delivery Method [2] Venturi Mask Oxygen Delivery Method [1 ( Venturi Mask Initial Baseline)] Oxygen Delivery Method Trach Collar Weight: 136.3 kg Body Mass Index (BMI) 42.1 Intake & Output: Intake and Output for Last 24 Hours 12/26/21 12/27/21 12/28/21 23:59 23:59 23:59 Intake Total 1057.45 / 1057.45 1361.67 / 1361.67 Output Total 2810 / 2810 Balance -1752.55 / -1752.55 1361.67 / 1361.67 Lab / Micro Data Attestation: I reviewed the patient's lab results. Result Diagrams: 12/26/21 04:35 12/28/21 05:00 Labs: Laboratory Results - last 24 hr 12/27/21 11:27: POC Glucose 214 H 12/27/21 16:17: POC Glucose 73 L 12/27/21 21:13: POC Glucose 118 H 12/28/21 05:00: Sodium 134 L, Potassium 4.1, Chloride 95 L, Carbon Dioxide 31.0, Anion Gap 8, BUN 52 H, Creatinine 2.32 H, Estim Creat Clear Calc 33.36, Est GFR (MDRD) Af Amer 36 L, Est GFR (MDRD) Non-Af 30 L, BUN/Creatinine Ratio 22.4 H, Glucose 139 H, Calcium 7.8 L 12/28/21 08:07: POC Glucose 121 H Radiography Diagnostic Testing: Radiology Impression Chest X-Ray 12/27/21 16:35 IMPRESSION: No interval change. Electronically Signed: Manuel Calvin MD at 16:47 EST , Physical Exam Const alert and oriented x3 Constitutional Narrative: Obese white male, sitting upright in bed with trach collar in place. Able to vocalize General Appearance: cooperative and well developed; Negative for in distress HEENT normocephalic, head/scalp atraumatic and moist oral mucous membranes Eyes PERRL, EOMs intact bilaterally, conjunctivae normal and no scleral icterus Neck no lymphadenopathy and supple General: trachea midline Chest inspection of chest normal Chest Narrative: Pain on palpation 2-3 rib spaces around thoracentesis site. No ecchymosis or induration is appreciated. Resp normal respiratory effort and no use of accessory muscles Resp Narrative: Patient's oxygen requirements have continued to improve throughout the day Effort and Inspection: able to speak in complete sentences; Negative for tachypneic, labored or actively coughing Auscultation: diminished lung sounds left; Negative for rales, rhonchi or wheezes Percussion: dullness Mid: left and Lower: left Cardio regular rate, regular rhythm, S1 normal heart sound, S2 normal heart sound, no murmurs, no rub and no gallops GI normal to inspection, nondistended, normoactive bowel sounds, soft to palpation and non-tender GI Narrative: Obese abdomen. Back/Spine Back/Spine Narrative: Tenderness across mid back, chronic. Extremity Extremity Narrative: Bilateral lower extremity edema, right greater than left. DAVY hose in place. General Extremity: edema bilateral (2+ bilateral lower extremity); Negative for clubbing Skin no rashes or lesions noted General Skin Exam: venous stasis Neuro oriented x3, CN's II-XII intact bilaterally, moves all extremities and no focal motor deficits Speech: speech normal Psych cooperative and affect normal Charges/Coding Visit Charges Inpatient E&M: 25037 Subs Hosp L2
--- NOTE | 2021-12-28 11:00 | DCINST_ITS ---
Discharge Instructions Diet Discharge Diet: Low fat / Low cholesterol, 1800 Calorie Control Diet and 2000 mg Sodium Diet Dressing / Incision Call your doctor if you observe: Fever of 101 or Higher, Coldness, Increased Pain, Numbness or Tingling, Change in Color, Inability to urinate, Inability to have a bowel movement, Shortness of breath, Dizziness, Fainting spells, Swelling in the ankles, Chest pain, Prolonged hiccupping, Increased palpitations (irregular heartbeat), Calf discomfort and Uncontrolled pain Follow Up Care Test Results: Test results from this visit will be discussed in further detail at your follow- up appointment, if applicable. Discharge Plan Admission Admit Date/Time: 12/25/21 18:05 Attending Provider: Ashu Oliver Primary Care Provider: Chinmay Sin Consulting Providers: Beatris Dumont ; Maxi Doan ; Ke Grace ; Elio Zhong ; Vladimir Avitia ; Laura Hernández BEAUT[employer] SALES CONSULTANT ; Rafael Mcmillan Discharge Orders/Prescriptions Prescriptions: New insulin lispro [Humalog KwikPen Insulin] 100 unit/mL Insulin Pen 8 unit subcut TIDAC Qty: 15 0RF Continued cyanocobalamin (vitamin B-12) 2,500 mcg tablet 2,500 mcg PO DAILY Eliquis 5 mg tablet 5 mg PO BID Qty: 60 11RF levothyroxine 150 MCG tablet 150 mcg PO DAILY Label Comments: thyroid atorvastatin 40 MG tablet 40 mg PO DAILY@1700 ipratropium-albuterol 3 ML solution for nebulization 3 ml inhalation Q6H Label Comments: breathing acetaminophen 325 mg Tablet 650 mg PO DAILY PRN (Reason: Pain) omeprazole 20 mg capsule,delayed release(DR/EC) 20 mg PO DAILY Label Comments: TAKE 1 CAPSULE BY MOUTH ONCE DAILY melatonin 10 mg Tablet 20 mg PO QHS guaifenesin [Mucinex] 600 mg Tablet Extended Release 12hr 600 mg PO DAILY PRN (Reason: Congestion) Trulicity 4.5 mg/0.5 mL pen injector 4.5 mg subcut FR budesonide [Pulmicort] 0.5 mg/2 mL Suspension For Nebulization 0.5 mg INHALATION BID (DME) FreeStyle Zayra 2 Sensor Kit See Rx Instructions .ROUTE .MEDSUPPLY Qty: 2 6RF Rx Instructions: As directed diltiazem HCl 120 mg capsule,extended release 24hr 120 mg PO BID Qty: 180 3RF Rx Instructions: Hold for heart less than 60 or systolic blood pressure less than 100 mmHg. Changed Levemir FlexTouch U-100 Insuln 100 unit/mL (3 mL) insulin pen 20 unit subcut BID Qty: 15 0RF Held lisinopril 5 mg tablet 5 mg PO DAILY Hold Instructions: Hold for 1 week until kidney function, creatinine returns to baseline 1.70. metolazone 2.5 mg tablet 2.5 mg PO MOWEFR Hold Instructions: Hold for 1 week until kidney function, creatinine returns to baseline 1.70. furosemide 40 mg tablet 40 mg PO 0900,1700 Hold Instructions: Hold for 1 week until kidney function, creatinine returns to baseline 1.70. metformin 500 mg tablet extended release 24 hr 500 mg PO 0900,1700 Hold Instructions: Hold for 1 week until creatinine clearance more than 30 mill per minute Referrals / Follow Up: Maxi Doan MD [Med Staff - Active Staff] - Within 2 Weeks (Appointment for thoracic surgeon for pleurodesis [facility]) Gabrielle Ballard DO [Med Staff - Consulting] - Within 2 Weeks (For acute kidney injury on CKD) Chinmay Sin MD [Primary Care Provider] - Laura Hernández BEAUTY SALES CONSULTANT, BEAUTY SALES CONSULTANT-C [Med Staff - Adv Practice Prof] - Within 2 Weeks Disposition Disposition (needs filled in before D/C Order can be placed): Home, Self Care
[2021-12-28] MEDS: Insulin Glargine-YFGN 100 UNIT/ML Pen 18 UNIT SC ×2 (11:19→22:35)
[2021-12-28] MEDS: Insulin Lispro 100 UNIT/ML INSULN.PEN SC ×4 (11:20→22:35)
[2021-12-28 11:40] LABS: Bedside Glucose 224 mg/dL (74-106)
--- NOTE | 2021-12-28 11:50 | PCM.DC.SUM ---
Providers Date of Admission: 12/25/21 Date of Discharge: 12/28/21 Primary Care Physician: Dr. Chinmay Sin MD Consultations 12/25/21 19:01 Consult: Real Time Operator / Pulmonary Medicine Routine Consulting Provider: Pulmonary Medicine rob [place] Reason for Consult: need for pleurix cath vs pleurodesis EMERGENT Consult: No MD Notified: Yes Date Notified: 12/26/21 Time Notified: 06:28 Method of Notification: Text Reason For Visit: ACUTE ON CHRONIC DIASTOLIC CHF, LT PLEURAL EFFUSIO Diagnosis Discharge Diagnosis (1) Recurrent left pleural effusion: Status: Acute Code(s): J90 - Pleural effusion, not elsewhere classified Medications at Discharge Home Medications levothyroxine 150 mcg tablet 150 mcg PO DAILY hypothyroidism 06/04/14 atorvastatin 40 mg tablet 40 mg PO DAILY@1700 cholesterol 04/12/17 ipratropium 0.5 mg-albuterol 3 mg (2.5 mg base)/3 mL nebulization soln 3 ml inhalation Q6H sob 04/12/17 flash glucose sensor ([employer] Zayra 2 Sensor kit) #2 ea 05/17/21 lisinopril 5 mg tablet 5 mg PO DAILY BLOOD PRESSURE 11/07/21 metolazone 2.5 mg tablet 2.5 mg PO MOWEFR EDEMA 11/07/21 acetaminophen 325 mg tablet 650 mg PO DAILY PRN Pain 12/06/21 budesonide 0.5 mg/2 mL suspension for nebulization (Pulmicort) 0.5 mg inhalation BID sob 12/06/21 dulaglutide 4.5 mg/0.5 mL subcutaneous pen injector (Trulicity) 4.5 mg subcut FR DIABETES 12/06/21 furosemide 40 mg tablet 40 mg PO 0900,1700 EDEMA 12/06/21 guaifenesin 600 mg tablet, extended release 12 hr (Mucinex) 600 mg PO DAILY PRN Congestion 12/06/21 melatonin 10 mg tablet 20 mg PO QHS SLEEP 12/06/21 metformin 500 mg tablet,extended release 24 hr 500 mg PO 0900,1700 DIABETES 12/06/21 omeprazole 20 mg capsule,delayed release 20 mg PO DAILY GERD 12/06/21 diltiazem HCl 120 mg capsule,extended release 24 hr 120 mg PO BID #180 caps 12/14/21 apixaban 5 mg tablet (Eliquis) 5 mg PO BID #60 tabs 12/15/21 cyanocobalamin (vitamin B-12) 2,500 mcg tablet 2,500 mcg PO DAILY supplement 12/15/21 insulin detemir U-100 100 unit/mL (3 mL) subcutaneous pen (Levemir FlexTouch U-100 Insulin) 20 unit (0.2 mL) subcut BID DIABETES #15 mL 12/28/21 insulin lispro 100 unit/mL subcutaneous pen (Humalog KwikPen (U-100) Insulin) 8 unit (0.08 mL) subcut TIDAC #15 mL 12/28/21 Hospital Course Summary of Care Provided Hospital Course: This is a 66-year-old gentleman with history of recurrent hospitalization, about 3 in last 1 month was admitted for worsening shortness of breath over the last 2 days. Patient was found to have recurrent left pleural effusion 1. Acute on chronic diastolic congestive heart failure-patient is being admitted in PCU. On IV Lasix. Last echo in October 2021 EF 55%. Normal RV size and systolic function. On IV Lasix. Heart failure core measures including intake and output, fluid restriction less than 1500 mL, daily weight monitoring, kidney and electrolytes monitoring. Patient and interdisciplinary round. Reason for recurrent admission is left pleural effusion along with probably patient not treated with low-salt diet. 12/27: Lasix drip discontinued as patient creatinine went up to 2.29 from 1.70. Lisinopril on hold. Discussed with the nursing staff. 12/28: Patient's creatinine seems plateaued, 2.3 to today. Continue holding diuretic furosemide, metolazone and lisinopril. Fluid restriction 1500 normal. #2 acute recurrent left pleural effusion-patient had thoracocentesis repeatedly on previous admission. It is of transudative in nature. Patient had ultrasound-guided 1990 mL thoracocentesis on 12/26. Patient was seen by freight separator. Recommended Pleurx catheter/pleurodesis. I further talked to the surgeon Dr. HARRISON and he suggested patient needs pleurodesis. Patient not candidate for Pleurx catheter as it is done for hospice patient. Will need to outpatient follow-up with thoracic surgeon for pleurodesis. 10/27: Discussed with the clam bed laborer and will need outpatient appointment with thoracic surgeon in [facility] As he has been [facility] before 10/28: Follow-up in pulmonary clinic in 2 weeks. Rest as mentioned above. #3 chronic atrial fib-resume Eliquis after 24 hours thoracocentesis. 12/27: Resume Eliquis #4 morbid obesity-complicates care, management, recovery, and prognosis #5 chronic obstructive pulmonary disease-patient is on oxygen at 4 L at night, this will be continued, his home medications will be continued #6 chronic hypoxic respiratory failure, laryngeal cancer status post laryngectomy on trach collar- #7 type 2 diabetes-patient's blood sugars , sliding scale insulin is used. 12/27 blood sugar is reasonably well controlled. In the morning it was 76 on lower side. But at 11 AM and 9 PM on 12/26 his glucose was high more than 200. Lantus dose decreased to 18 subcutaneous twice daily. Humalog insulin 5/3 times daily with meals with holding parameter. 12/28: Patient glucose decreases after 6 to 8 hours of Lantus but elevated during mealtime therefore Humalog insulin was added yesterday, dose increased to 10 units of breakfast 3 times daily. Follow-up visit for optimal control of glucose. #8 hypothyroidism-patient will remain on his home medication #9 chronic kidney disease stage IIIa-kidney function at baseline Total time of the visit including total time spent in counseling or coordination of care, (more than 50% of the total time, spent in obtaining medical information from nurses and other ancillary care providers,explaining to the patient about labs, imaging, diagnosis and management of active complex medical conditions), discussion with freight separator/clam bed laborer and surgeon, interdisciplinary round, review of labs and imaging is 45 minutes. Laboratory Results 12/27/21 16:17: POC Glucose 73 L 12/27/21 21:13: POC Glucose 118 H 12/28/21 05:00: Sodium 134 L, Potassium 4.1, Chloride 95 L, Carbon Dioxide 31.0, Anion Gap 8, BUN 52 H, Creatinine 2.32 H, Estim Creat Clear Calc 33.36, Est GFR (MDRD) Af Amer 36 L, Est GFR (MDRD) Non-Af 30 L, BUN/Creatinine Ratio 22.4 H, Glucose 139 H, Calcium 7.8 L 12/28/21 08:07: POC Glucose 121 H 12/28/21 11:16: POC Glucose 224 H Physical Exam Narrative Dyspnea on exertion resolved. Patient is comfortable at rest but he could not lay down because of shortness of breath. Patient also has chronic left periscapular pain probably from arthritis. Physical exam General: Alert, Oriented x3, Cooperative, morbid obesity BMI 42.1 kg/m? HEENT: S/p tracheostomy on trach collar. Atraumatic, PERRLA, EOMI, Normocephalic Oral: No Gingival or Mucosal Lesions/ Ulcerations Neck: Supple, No JVD, Negative Carotid Bruits Lungs: Air entry improved on the left lower half posteriorly. Left pleural effusion is decreased. Cardiovascular: Irregular rhythm, Normal S1, Normal S2, No murmurs Abdomen: Bowel Sounds Present, Soft, Non Tender, Non-Distended : No renal angle tenderness. No suprapubic tenderness. Extremities: 1+ pitting below knee edema, Capillary Refill Less than 3 Seconds Skin: No rashes, No breakdown Musculoskeletal/back: Mild tenderness over left periscapular area and paraspinal muscles. No Tenderness to Palpation of Joints or Extremities Neurological: Cranial nerves II-XII grossly intact, DTR 2+/4 and Symmetrical, Neuro grossly intact Psych/Mental Status: Flat affect. Weight / BMI Weight Weight: 300 lb 7.841 oz Body Mass Index (BMI) 42.1 ABG / Lab / Microbiology Data Result Diagrams: 12/26/21 04:35 12/28/21 05:00 Laboratory: Laboratory Results - last 24 hr 12/27/21 11:27: POC Glucose 214 H 12/27/21 16:17: POC Glucose 73 L 12/27/21 21:13: POC Glucose 118 H 12/28/21 05:00: Sodium 134 L, Potassium 4.1, Chloride 95 L, Carbon Dioxide 31.0, Anion Gap 8, BUN 52 H, Creatinine 2.32 H, Estim Creat Clear Calc 33.36, Est GFR (MDRD) Af Amer 36 L, Est GFR (MDRD) Non-Af 30 L, BUN/Creatinine Ratio 22.4 H, Glucose 139 H, Calcium 7.8 L 12/28/21 08:07: POC Glucose 121 H 12/28/21 11:16: POC Glucose 224 H Radiography Diagnostic Testing: Radiology Impression Chest X-Ray 12/27/21 16:35 IMPRESSION: No interval change. Electronically Signed: Manuel Calvin MD at 16:47 EST , D/C Instructions Discharge Diet: Low fat / Low cholesterol, 1800 Calorie Control Diet and 2000 mg Sodium Diet Call your doctor if you observe: Fever of 101 or Higher, Coldness, Increased Pain, Numbness or Tingling, Change in Color, Inability to urinate, Inability to have a bowel movement, Shortness of breath, Dizziness, Fainting spells, Swelling in the ankles, Chest pain, Prolonged hiccupping, Increased palpitations (irregular heartbeat), Calf discomfort and Uncontrolled pain Discharge Plan Admission Admit Date/Time: 12/25/21 18:05 Attending Provider: Ashu Oliver Primary Care Provider: Chinmay Sin Consulting Providers: Beatris Dumont ; Maxi Doan ; Ke Grace ; Elio Zhong ; Vladimir Avitia ; Laura Hernández NP ; Rafael Mcmillan Discharge Orders/Prescriptions Prescriptions: New insulin lispro [Humalog KwikPen Insulin] 100 unit/mL Insulin Pen 8 unit subcut TIDAC Qty: 15 0RF Continued cyanocobalamin (vitamin B-12) 2,500 mcg tablet 2,500 mcg PO DAILY Eliquis 5 mg tablet 5 mg PO BID Qty: 60 11RF levothyroxine 150 MCG tablet 150 mcg PO DAILY Label Comments: thyroid atorvastatin 40 MG tablet 40 mg PO DAILY@1700 ipratropium-albuterol 3 ML solution for nebulization 3 ml inhalation Q6H Label Comments: breathing acetaminophen 325 mg Tablet 650 mg PO DAILY PRN (Reason: Pain) omeprazole 20 mg capsule,delayed release(DR/EC) 20 mg PO DAILY Label Comments: TAKE 1 CAPSULE BY MOUTH ONCE DAILY melatonin 10 mg Tablet 20 mg PO QHS guaifenesin [Mucinex] 600 mg Tablet Extended Release 12hr 600 mg PO DAILY PRN (Reason: Congestion) Trulicity 4.5 mg/0.5 mL pen injector 4.5 mg subcut FR budesonide [Pulmicort] 0.5 mg/2 mL Suspension For Nebulization 0.5 mg INHALATION BID (DME) [employer] Zayra 2 Sensor Kit See Rx Instructions .ROUTE .MEDSUPPLY Qty: 2 6RF Rx Instructions: As directed diltiazem HCl 120 mg capsule,extended release 24hr 120 mg PO BID Qty: 180 3RF Rx Instructions: Hold for heart less than 60 or systolic blood pressure less than 100 mmHg. Changed Levemir FlexTouch U-100 Insuln 100 unit/mL (3 mL) insulin pen 20 unit subcut BID Qty: 15 0RF Held lisinopril 5 mg tablet 5 mg PO DAILY Hold Instructions: Hold for 1 week until kidney function, creatinine returns to baseline 1.70. metolazone 2.5 mg tablet 2.5 mg PO MOWEFR Hold Instructions: Hold for 1 week until kidney function, creatinine returns to baseline 1.70. furosemide 40 mg tablet 40 mg PO 0900,1700 Hold Instructions: Hold for 1 week until kidney function, creatinine returns to baseline 1.70. metformin 500 mg tablet extended release 24 hr 500 mg PO 0900,1700 Hold Instructions: Hold for 1 week until creatinine clearance more than 30 mill per minute Referrals / Follow Up: Maxi Doan MD [Med Staff - Active Staff] - Within 2 Weeks (Appointment for thoracic surgeon for pleurodesis [facility]) Gabrielle Ballard DO [Med Staff - Consulting] - Within 2 Weeks (For acute kidney injury on CKD) Chinmay Sin MD [Primary Care Provider] - Laura Hrenández APPLICATION DEVELOPMENT DIRECTOR, APPLICATION DEVELOPMENT DIRECTOR-C [Med Staff - Adv Practice Prof] - Within 2 Weeks Mala Mckeon MD [Med Staff - Active Staff] - Within 1 Month (for chronic back/left periscapular pain) Disposition Disposition (needs filled in before D/C Order can be placed): Home, Self Care Charges/Coding Visit Charges Inpatient E&M: 58624 Disch Hosp
--- NOTE | 2021-12-28 13:15 | PN.HOSP_ITS ---
Objective Data Objective Data Vital Signs: Vital Signs Temp Pulse Resp BP Pulse Ox O2 Del Method O2 Flow Rate 97.4 F L 92 20 H 116/58 L 96 Trach Collar 7 12/28/21 12:00 12/28/21 12:00 12/28/21 12:00 12/28/21 12:00 12/28/21 12:00 12/28/21 12:00 12/28/21 12:00 FiO2 28 12/28/21 12:00 Oxygen Flow Rate (L/min) [8] 8 Oxygen Flow Rate (L/min) [7] 8 Oxygen Flow Rate (L/min) [6] 8 Oxygen Flow Rate (L/min) [5] 8 Oxygen Flow Rate (L/min) [4] 8 Oxygen Flow Rate (L/min) [3] 8 Oxygen Flow Rate (L/min) [2] 8 Oxygen Flow Rate (L/min) [1 ( 8 Initial Baseline)] Oxygen Flow Rate (L/min) 7 Oxygen Delivery Method [8] Venturi Mask Oxygen Delivery Method [7] Venturi Mask Oxygen Delivery Method [6] Venturi Mask Oxygen Delivery Method [5] Venturi Mask Oxygen Delivery Method [4] Venturi Mask Oxygen Delivery Method [3] Nasal Cannula Oxygen Delivery Method [2] Venturi Mask Oxygen Delivery Method [1 ( Venturi Mask Initial Baseline)] Oxygen Delivery Method Trach Collar Weight: 300 lb 7.841 oz Body Mass Index (BMI) 42.1 Intake & Output: Intake and Output for Last 24 Hours 12/26/21 12/27/21 12/28/21 23:59 23:59 23:59 Intake Total 1057.45 / 1057.45 1361.67 / 1361.67 350 / 350 Output Total 2810 / 2810 Balance -1752.55 / -1752.55 1361.67 / 1361.67 350 / 350 Lab / Micro Data Result Diagrams: 12/26/21 04:35 12/28/21 05:00 Labs: Laboratory Results - last 24 hr 12/27/21 16:17: POC Glucose 73 L 12/27/21 21:13: POC Glucose 118 H 12/28/21 05:00: Sodium 134 L, Potassium 4.1, Chloride 95 L, Carbon Dioxide 31.0, Anion Gap 8, BUN 52 H, Creatinine 2.32 H, Estim Creat Clear Calc 33.36, Est GFR (MDRD) Af Amer 36 L, Est GFR (MDRD) Non-Af 30 L, BUN/Creatinine Ratio 22.4 H, Glucose 139 H, Calcium 7.8 L 12/28/21 08:07: POC Glucose 121 H 12/28/21 11:16: POC Glucose 224 H Radiography Diagnostic Testing: Radiology Impression Chest X-Ray 12/27/21 16:35 IMPRESSION: No interval change. Electronically Signed: Manuel Calvin MD at 16:47 EST , Physical Exam Narrative Dyspnea on exertion resolved. Patient still on 7 L of oxygen. He could not lay down because of shortness of breath. Patient also has chronic left periscapular pain probably from arthritis. Physical exam General: Alert, Oriented x3, Cooperative, morbid obesity BMI 42.1 kg/m? HEENT: S/p tracheostomy on trach collar. Atraumatic, PERRLA, EOMI, Normocephalic Oral: No Gingival or Mucosal Lesions/ Ulcerations Neck: Supple, No JVD, Negative Carotid Bruits Lungs: Air entry improved on the left lower half posteriorly. Left pleural effusion is decreased. Cardiovascular: Irregular rhythm, Normal S1, Normal S2, No murmurs Abdomen: Bowel Sounds Present, Soft, Non Tender, Non-Distended : No renal angle tenderness. No suprapubic tenderness. Extremities: 1+ pitting below knee edema, Capillary Refill Less than 3 Seconds Skin: No rashes, No breakdown Musculoskeletal/back: Mild tenderness over left periscapular area and paraspinal muscles. No Tenderness to Palpation of Joints or Extremities Neurological: Cranial nerves II-XII grossly intact, DTR 2+/4 and Symmetrical, Neuro grossly intact Psych/Mental Status: Flat affect. Assessment & Plan Assessment/Plan (1) Recurrent left pleural effusion: (2) CHF exacerbation: PLAN: Plan This is a 66-year-old gentleman with history of recurrent hospitalization, about 3 in last 1 month was admitted for worsening shortness of breath over the last 2 days.? Patient was found to have recurrent left pleural effusion 1.? Acute on chronic diastolic congestive heart failure-patient is being admitted in PCU.? On IV Lasix.? Last echo in October 2021 EF 55%.? Normal RV s ize and systolic function.? On IV Lasix.? Heart failure core measures including intake and output, fluid restriction less than 1500 mL, daily weight monitoring, kidney and electrolytes monitoring.? Patient and interdisciplinary round.? Reason for recurrent admission is left pleural effusion along with probably patient not treated with low-salt diet. 12/27: Lasix drip discontinued as patient creatinine went up to 2.29 from 1.70.? Lisinopril on hold.? Discussed with the nursing staff. 12/28: Patient's creatinine seems plateaued, 2.3 to today.? Continue holding diuretic furosemide, metolazone and lisinopril.? Fluid restriction 1500 normal. #2 acute recurrent left pleural effusion-patient had thoracocentesis repeatedly on previous admission.? It is of transudative in nature.? Patient had ul trasound-guided 1990 mL thoracocentesis on 12/26.? Patient was seen by grid trimmer.? Recommended Pleurx catheter/pleurodesis.? I further talked to the surgeon Dr. HARRISON and he suggested patient needs pleurodesis.? Patient not candidate for Pleurx catheter as it is done for hospice patient.? Will need to outpatient follow-up with thoracic surgeon for pleurodesis. 10/27: Discussed with the aeronautical engineering officer and will need outpatient appointment with thoracic surgeon in [facility] As he has been [facility] before 10/28: Patient is still on 7 L of oxygen. Therefore could not be discharged today discussed with the gearcase assembler. To thoracic surgeons there. Needs [facility] record to be faxed there. Follow-up in pulmonary clinic in 2 weeks.? Rest as mentioned above. #3 chronic atrial fib-resume Eliquis after 24 hours thoracocentesis. 12/27: Resume Eliquis #4 morbid obesity-complicates care, management, recovery, and prognosis #5 chronic obstructive pulmonary disease-patient is on oxygen at 4 L at night, this will be continued, his home medications will be continued #6 chronic hypoxic respiratory failure, laryngeal cancer status post laryngectomy on trach collar- #7 type 2 diabetes-patient's blood sugars , sliding scale insulin is used. 12/27 blood sugar is reasonably well controlled.? In the morning it was 76 on lower side.? But at 11 AM and 9 PM on 12/26 his glucose was high more than 200. Lantus dose decreased to 18 subcutaneous twice daily.? Humalog insulin 5/3 times daily with meals with holding parameter. 12/28: Patient glucose decreases after 6 to 8 hours of Lantus but elevated during mealtime therefore Humalog insulin was added yesterday, dose increased to 10 units of breakfast 3 times daily.? #8 hypothyroidism-patient will remain on his home medication #9 chronic kidney disease stage IIIa-kidney function at baseline Total time of the visit including total time spent in counseling or coordination of care, (more than 50% of the total time, spent in obtaining medical information from nurses and other ancillary care providers,explaining to the patient about labs, imaging, diagnosis and management of active complex medical conditions), discussion with grid trimmer/aeronautical engineering officer and surgeon, interdisciplinary round, review of labs and imaging is? 45 minutes. Charges/Coding Visit Charges Inpatient E&M: 55574 Subs Hosp L3
--- NOTE | 2021-12-28 13:17 | CASEMGMT ---
Per Dr. Oliver and Dr. Doan, pt needs appt set up with cardiothoracic surgery at [place] and f/u with [facility] [place]. Call to cardiothoracic surgery office at [phone] and they state they will need clinicals sent on pt and then will set up appt, if necessary. . Pt updated and is ok with clinicals to [place] [facility]. Pt/ state pt is already scheduled to see pulm office on 01/09/22 and plans to keep. Pt/ updated that clinicals faxed and to be expecting call from [place], voice understanding. Call to pulm office and message left regarding all so that they can f/u for pt. CM to follow for increased home oxygen need and green sheet left on chart for holiday tomorrow. Juli TAVARES CM
--- NOTE | 2021-12-28 15:50 | CASEMGMT ---
Call from [place] cardiothoracic office stating they would like recent radiology results faxed and films 'pushed' to [place]. [employer], secreatary, aware to notify radiology to push films and reports faxed. Per office, pt has appt scheduled for 01/19/22 at 1515 and this was provided to pt/ with address to office at this time. Per , they just received a call from [facility] pharmacy stating the humalog pens are not on formulary for pt's insurance but that novolog is. Call to Dr. Oliver to update and he states ok for novolog kwikpens instead of humalog as 'they are the same thing.' Call to pharmacist at [facility] and she is updated and takes verbal order from this RN TALA. Dr. Oliver also updated on OP CT surgery appt made, voices understanding. Juli TAVARES CM
[2021-12-28] MEDS: Atorvastatin Calcium 40 MG Tablet PO (16:16)
[2021-12-28 16:40] LABS: Bedside Glucose 143 mg/dL (74-106)
[2021-12-28] MEDS: MELATONIN 10 MG TABLET 20 MG PO (22:33)
[2021-12-28 23:01] LABS: Bedside Glucose 154 mg/dL (74-106)
[2021-12-29] VITALS (13 sets, daily range): BP systolic 100–118; BP diastolic 54–68; PULSE 77–103; RESP 18–20; TEMP 36.8; O2SAT 94–97
[2021-12-29] MEDS: Morphine 2 MG/ML Syringe IV (01:07)
[2021-12-29] MEDS: 0.9% Saline Lock 10 ML Syringe IV (01:08)
[2021-12-29] MEDS: Ipratropium/Albuterol Sulfate 3 ML AMPUL.NEB INHALATION ×3 (01:25→13:50)
[2021-12-29] MEDS: Levothyroxine 150 MCG Tablet PO (04:55)
[2021-12-29] MEDS: Budesonide Respules 0.5 MG/2 ML AMPUL.NEB. INHALATION (06:55)
[2021-12-29 07:10] LABS: Anion Gap 7 (5-15); BUN 63 mg/dL (7-18); BUN/Creat Ratio 26.5 RATIO (10-20); Calcium,Total 7.8 mg/dL (8.5-10.1); Chloride 95 mmol/L (98-107); Creatinine, Serum 2.38 mg/dL (0.70-1.30); EST Glomerular Filtration Rate 29 mL/min (>60); Est Glom Filt Rate - Afr Amer 35 mL/min (>60); Estimated Creatinine Clearance 32.52 ml/min; Glucose 106 mg/dL (74-106); Potassium 3.9 mmol/L (3.5-5.1); Sodium Level 132 mmol/L (136-145)
[2021-12-29] MEDS: dilTIAZem CD 120 MG Capsule PO (08:52)
[2021-12-29] MEDS: APIXABAN 5 MG TABLET PO (08:53)
[2021-12-29] MEDS: Pantoprazole Sodium 20 MG Tablet PO (08:54)
[2021-12-29] MEDS: Insulin Glargine-YFGN 100 UNIT/ML Pen 18 UNIT SC (08:54)
--- NOTE | 2021-12-29 09:41 | PN.CC_ITS ---
Assessment & Plan Assessment/Plan (1) Recurrent left pleural effusion: PLAN: Plan RECOMMENDATIONS: 1. Wean trach collar oxygen to baseline as tolerated to maintain saturations greater than 90%. 2. Likely reinitiate diuretics once renal function improves 3. Continue bronchodilators, as ordered. 4. Will need outpatient follow-up with thoracic surgeon regarding Pleurx catheter versus pleurodesis. 5. Okay to discharge from a pulmonary perspective 6. Patient should follow-up in our office in 2 weeks for outpatient thoracentesis until definitive therapy can be arranged IMPRESSIONS: 1. Recurrent transudative left pleural effusion This patient has had recurrent left sided pleural effusions since October 2021, with 5 thoracentesis since that time. Analysis from 12/07/2021 revealed a transudative fluid. Thoracentesis performed 12/17/21 drained 1990ml. Repeat chest x-ray did not show any complications of the procedure. The patient is requiring increased oxygen through trach collar, as compared to basel ine, but improving. Clinical suspicion for restriction secondary to pleural effusion leading to increased oxygen demands. Given the rapidity of fluid reaccumulation, despite medication adherence and low sodium diet, recommend outpatient referral to thoracic surgery to pursue possible Pleurx catheter versus pleurodesis. Patient does report that his tracheostomy was performed at [facility], and he would be agreeable to referral there. Recommend consulting case management to arrange outpatient appointment. Okay to discharge later today with close outpatient pulmonary follow-up 2. History of laryngeal cancer status post tracheostomy/morbid obesity/hypothyroidism/COPD/chronic respiratory failure/paroxysmal A. fib Complicates care, management, recovery and prognosis. Continue home medications as indicated. Patient does not appear to have concomitant pneumonia or other infectious etiology at this time. Subjective Subjective Patient did well overnight. Discharge was delayed secondary to patient's concern for higher oxygen requirements. Patient states chest pain continues to slowly improve. No hemoptysis is been reported. Objective Data Objective Data Vital Signs: Vital Signs Temp Pulse Resp BP Pulse Ox O2 Del Method O2 Flow Rate 36.8 C 77 20 H 100/54 L 97 Trach Collar 4 12/29/21 08:49 12/29/21 08:49 12/29/21 08:49 12/29/21 08:49 12/29/21 08:49 12/29/21 08:49 12/29/21 08:49 FiO2 28 12/29/21 07:39 Oxygen Flow Rate (L/min) [8] 8 Oxygen Flow Rate (L/min) [7] 8 Oxygen Flow Rate (L/min) [6] 8 Oxygen Flow Rate (L/min) [5] 8 Oxygen Flow Rate (L/min) [4] 8 Oxygen Flow Rate (L/min) [3] 8 Oxygen Flow Rate (L/min) [2] 8 Oxygen Flow Rate (L/min) [1 ( 8 Initial Baseline)] Oxygen Flow Rate (L/min) 4 Oxygen Delivery Method [8] Venturi Mask Oxygen Delivery Method [7] Venturi Mask Oxygen Delivery Method [6] Venturi Mask Oxygen Delivery Method [5] Venturi Mask Oxygen Delivery Method [4] Venturi Mask Oxygen Delivery Method [3] Nasal Cannula Oxygen Delivery Method [2] Venturi Mask Oxygen Delivery Method [1 ( Venturi Mask Initial Baseline)] Oxygen Delivery Method Trach Collar Weight: 136.7 kg Body Mass Index (BMI) 42.1 Intake & Output: Intake and Output for Last 24 Hours 12/27/21 12/28/21 12/29/21 23:59 23:59 23:59 Intake Total 1361.67 / 1361.67 650 / 850 200 / 200 Balance 1361.67 / 1361.67 650 / 850 200 / 200 Lab / Micro Data Result Diagrams: 12/26/21 04:35 12/29/21 06:40 Labs: Laboratory Results - last 24 hr 12/28/21 11:16: POC Glucose 224 H 12/28/21 16:13: POC Glucose 143 H 12/28/21 22:30: POC Glucose 154 H 12/29/21 06:40: Sodium 132 L, Potassium 3.9, Chloride 95 L, Carbon Dioxide 30.0, Anion Gap 7, BUN 63 H, Creatinine 2.38 H, Estim Creat Clear Calc 32.52, Est GFR (MDRD) Af Amer 35 L, Est GFR (MDRD) Non-Af 29 L, BUN/Creatinine Ratio 26.5 H, Glucose 106, Calcium 7.8 L Physical Exam Const alert and oriented x3 Constitutional Narrative: Obese white male, sitting upright in bed with trach collar in place. Able to vocalize General Appearance: cooperative and well developed; Negative for in distress HEENT normocephalic, head/scalp atraumatic and moist oral mucous membranes Eyes PERRL, EOMs intact bilaterally, conjunctivae normal and no scleral icterus Neck no lymphadenopathy and supple General: trachea midline Chest inspection of chest normal Resp normal respiratory effort and no use of accessory muscles Resp Narrative: Patient's oxygen requirements have continued to improve throughout the day Effort and Inspection: able to speak in complete sentences; Negative for tachypneic, labored or actively coughing Auscultation: diminished lung sounds left; Negative for rales, rhonchi or wheezes Percussion: dullness Mid: left and Lower: left Cardio regular rate, regular rhythm, S1 normal heart sound, S2 normal heart sound, no murmurs, no rub and no gallops GI normal to inspection, nondistended, normoactive bowel sounds, soft to palpation and non-tender GI Narrative: Obese abdomen. Extremity Extremity Narrative: Bilateral lower extremity edema, right greater than left. DAVY hose in place. General Extremity: edema bilateral (2+ bilateral lower extremity); Negative for clubbing Skin no rashes or lesions noted General Skin Exam: venous stasis Neuro oriented x3, CN's II-XII intact bilaterally, moves all extremities and no focal motor deficits Speech: speech normal Psych cooperative and affect normal Charges/Coding Visit Charges Inpatient E&M: 37580 Subs Hosp L2
--- NOTE | 2021-12-29 10:12 | PCM.DC.SUM ---
Providers Date of Admission: 12/25/21 Date of Discharge: 12/29/21 Primary Care Physician: Dr. Chinmay Sin MD Consultations 12/25/21 19:01 Consult: [employer] / Pulmonary Medicine Routine Consulting Provider: Pulmonary Medicine rob Maco Reason for Consult: need for pleurix cath vs pleurodesis EMERGENT Consult: No MD Notified: Yes Date Notified: 12/26/21 Time Notified: 06:28 Method of Notification: Text Reason For Visit: ACUTE ON CHRONIC DIASTOLIC CHF, LT PLEURAL EFFUSIO Diagnosis Discharge Diagnosis (1) Recurrent left pleural effusion: Status: Acute Code(s): J90 - Pleural effusion, not elsewhere classified Medications at Discharge Home Medications levothyroxine 150 mcg tablet 150 mcg PO DAILY hypothyroidism 06/04/14 atorvastatin 40 mg tablet 40 mg PO DAILY@1700 cholesterol 04/12/17 ipratropium 0.5 mg-albuterol 3 mg (2.5 mg base)/3 mL nebulization soln 3 ml inhalation Q6H sob 04/12/17 flash glucose sensor ([employer] Zayra 2 Sensor kit) #2 ea 05/17/21 lisinopril 5 mg tablet 5 mg PO DAILY BLOOD PRESSURE 11/07/21 metolazone 2.5 mg tablet 2.5 mg PO MOWEFR EDEMA 11/07/21 acetaminophen 325 mg tablet 650 mg PO DAILY PRN Pain 12/06/21 budesonide 0.5 mg/2 mL suspension for nebulization (Pulmicort) 0.5 mg inhalation BID sob 12/06/21 dulaglutide 4.5 mg/0.5 mL subcutaneous pen injector (Trulicity) 4.5 mg subcut FR DIABETES 12/06/21 furosemide 40 mg tablet 40 mg PO 0900,1700 EDEMA 12/06/21 guaifenesin 600 mg tablet, extended release 12 hr (Mucinex) 600 mg PO DAILY PRN Congestion 12/06/21 melatonin 10 mg tablet 20 mg PO QHS SLEEP 12/06/21 metformin 500 mg tablet,extended release 24 hr 500 mg PO 0900,1700 DIABETES 12/06/21 omeprazole 20 mg capsule,delayed release 20 mg PO DAILY GERD 12/06/21 diltiazem HCl 120 mg capsule,extended release 24 hr 120 mg PO BID #180 caps 12/14/21 apixaban 5 mg tablet (Eliquis) 5 mg PO BID #60 tabs 12/15/21 cyanocobalamin (vitamin B-12) 2,500 mcg tablet 2,500 mcg PO DAILY supplement 12/15/21 insulin detemir U-100 100 unit/mL (3 mL) subcutaneous pen (Levemir FlexTouch U-100 Insulin) 20 unit (0.2 mL) subcut BID DIABETES #15 mL 12/28/21 insulin lispro 100 unit/mL subcutaneous pen (Humalog KwikPen (U-100) Insulin) 8 unit (0.08 mL) subcut TIDAC #15 mL 12/28/21 Hospital Course Operations None Procedures Thoracentesis Summary of Care Provided Minutes Spent on Discharge: 45 Hospital Course: Patient is 66-year-old male with a past medical history as outlined was admitted through the ED on 12/26/2021 with a complaint of shortness of breath with assisted dry cough. He had had recurrent left pleural effusion over the past few months prior to this admission and had had a thoracentesis done in December 07 analysis of which showed that it was transudative. For this admission, chest x-ray done showed massive left pleural effusion with compressive atelectasis he was admitted and managed for recurrent left pleural effusion. He had thoracentesis with removal of 1.9 L of fluid. Pulmonology was consulted. Recommendation was for Pleurx catheter versus pleurodesis. Hospitalist team also talked to general surgery about Pleurx catheter but general surgery recommended pleurodesis as there is catheter was usually done for hospice patients apparently. Patient's felt much better and he improved. He remained on his baseline oxygen. Was recommended the patient follow-up on outpatient basis with thoracic surgeon in [facility] for evaluation for pleurodesis. Patient remained stable and was discharged on 12/29/2021. He is to follow-up with his primary care doctor and with pulmonology as well as with thoracic surgery as outlined. Patient seen and examined prior to discharge. He had no complaints and felt well. He had an uneventful night and review of systems otherwise negative. Labs and vitals reviewed. Medication reviewed and reconciled. Physical Exam Const alert, oriented x3 and no apparent distress General Appearance: cooperative, comfortable and well kempt Orientation / Consciousness: awake, oriented to person, oriented to place and oriented to time Exam Limitations: no limitations HEENT normocephalic, head/scalp atraumatic and hearing grossly normal bilaterally Mouth: oral and palatal mucosa normal Eyes PERRL, EOMs intact bilaterally and conjunctivae normal Neck no lymphadenopathy and supple Resp Resp Narrative: mildly diminished breath sounds bibasally, on oxygen via trach collar. Cardio regular rate, regular rhythm, S1 normal heart sound, S2 normal heart sound and no murmurs GI normal to inspection, nondistended, normoactive bowel sounds and soft to palpation Extremity normal to inspection and full ROM Skin no rashes or lesions noted Neuro oriented x3, CN's II-XII intact bilaterally, moves all extremities and no focal motor deficits Sensorium / Orientation: awake and alert Motor Exam: strength 5/5 throughout Psych affect normal Weight / BMI Weight Weight: 301 lb 5.95 oz Body Mass Index (BMI) 42.1 ABG / Lab / Microbiology Data Result Diagrams: 12/26/21 04:35 12/29/21 06:40 Laboratory: Laboratory Results - last 24 hr 12/28/21 11:16: POC Glucose 224 H 12/28/21 16:13: POC Glucose 143 H 12/28/21 22:30: POC Glucose 154 H 12/29/21 06:40: Sodium 132 L, Potassium 3.9, Chloride 95 L, Carbon Dioxide 30.0, Anion Gap 7, BUN 63 H, Creatinine 2.38 H, Estim Creat Clear Calc 32.52, Est GFR (MDRD) Af Amer 35 L, Est GFR (MDRD) Non-Af 29 L, BUN/Creatinine Ratio 26.5 H, Glucose 106, Calcium 7.8 L D/C Instructions Discharge Diet: Low fat / Low cholesterol, 1800 Calorie Control Diet and 2000 mg Sodium Diet Call your doctor if you observe: Fever of 101 or Higher, Coldness, Increased Pain, Inability to urinate, Shortness of breath, Dizziness, Fainting spells, Swelling in the ankles, Chest pain, Prolonged hiccupping, Increased palpitations (irregular heartbeat) and Uncontrolled pain Meaningful Use Info Meaningful Use Diagnoses (Choose all that apply): None applicable Discharge Plan Admission Admit Date/Time: 12/25/21 18:05 Primary Reason for Your Visit: recurrent left pleural effusion Attending Provider: Bridgett Dale Primary Care Provider: Chinmay Sin Consulting Providers: Beatris Dumont ; Maxi Doan ; Ke Grace ; Elio Zhong ; Vladimir Avitia ; Laura Hernández NP ; Rafael Mcmillan ; Ashu Oliver Instructions Patient Instructions: Pleural Effusion Additional Instructions / Restrictions: follow up at [facility] for evaluation by thoracic surgeon for Pleurx catheter vs pleurodesis. Discharge Orders/Prescriptions Prescriptions: New insulin lispro [Humalog KwikPen Insulin] 100 unit/mL Insulin Pen 8 unit subcut TIDAC Qty: 15 0RF Continued cyanocobalamin (vitamin B-12) 2,500 mcg tablet 2,500 mcg PO DAILY Eliquis 5 mg tablet 5 mg PO BID Qty: 60 11RF levothyroxine 150 MCG tablet 150 mcg PO DAILY Label Comments: thyroid atorvastatin 40 MG tablet 40 mg PO DAILY@1700 ipratropium-albuterol 3 ML solution for nebulization 3 ml inhalation Q6H Label Comments: breathing acetaminophen 325 mg Tablet 650 mg PO DAILY PRN (Reason: Pain) omeprazole 20 mg capsule,delayed release(DR/EC) 20 mg PO DAILY Label Comments: TAKE 1 CAPSULE BY MOUTH ONCE DAILY melatonin 10 mg Tablet 20 mg PO QHS guaifenesin [Mucinex] 600 mg Tablet Extended Release 12hr 600 mg PO DAILY PRN (Reason: Congestion) Trulicity 4.5 mg/0.5 mL pen injector 4.5 mg subcut FR budesonide [Pulmicort] 0.5 mg/2 mL Suspension For Nebulization 0.5 mg INHALATION BID (DME) FreeStyle Zayra 2 Sensor Kit See Rx Instructions .ROUTE .MEDSUPPLY Qty: 2 6RF Rx Instructions: As directed diltiazem HCl 120 mg capsule,extended release 24hr 120 mg PO BID Qty: 180 3RF Rx Instructions: Hold for heart less than 60 or systolic blood pressure less than 100 mmHg. Changed Levemir FlexTouch U-100 Insuln 100 unit/mL (3 mL) insulin pen 20 unit subcut BID Qty: 15 0RF Held lisinopril 5 mg tablet 5 mg PO DAILY Hold Instructions: Hold for 1 week until kidney function, creatinine returns to baseline 1.70. metolazone 2.5 mg tablet 2.5 mg PO MOWEFR Hold Instructions: Hold for 1 week until kidney function, creatinine returns to baseline 1.70. furosemide 40 mg tablet 40 mg PO 0900,1700 Hold Instructions: Hold for 1 week until kidney function, creatinine returns to baseline 1.70. metformin 500 mg tablet extended release 24 hr 500 mg PO 0900,1700 Hold Instructions: Hold for 1 week until creatinine clearance more than 30 mill per minute Referrals / Follow Up: Mala Mckeon MD [Med Staff - Active Staff] - Within 1 Month (for chronic back/left periscapular pain) Maxi Doan MD [Med Staff - Active Staff] - Within 2 Weeks (Appointment for thoracic surgeon for pleurodesis [facility]) Gabrielle Ballard DO [Med Staff - Consulting] - Within 2 Weeks (For acute kidney injury on CKD) Shad Burns MD [Non-Staff] - 01/09/22 9:20 am Laura Hernández NP, DESTINATION SPECIALIST-C [Med Staff - Adv Practice Prof] - Within 2 Weeks Disposition Disposition (needs filled in before D/C Order can be placed): Home, Self Care Charges/Coding Visit Charges Inpatient E&M: 72667 Disch Hosp
[2021-12-29 10:30] LABS: Bedside Glucose 116 mg/dL (74-106)
[2021-12-29 12:45] LABS: Bedside Glucose 212 mg/dL (74-106)
[2021-12-29] MEDS: Insulin Lispro 100 UNIT/ML INSULN.PEN SC ×2 (12:48)
== END 2021-12-29 15:22 | disposition home or self-care (01) | DRG 291 ==
LOC: ED 18:03 → PCU 18:16
PROVIDERS: Internal Medicine; Internal Medicine Critical Care Medicine; Physician Assistant; Admitting Provider Internal Medicine; Emergency Provider Emergency Medicine; PCP Family Medicine; Visit Provider Student in an Organized Health Care Education/Training Program
DX: I13.0 Hypertensive heart and chronic kidney disease with heart failure and stage 1 through stage 4 chronic kidney disease, or unspecified chronic kidney disease (principal); I50.33 Acute on chronic diastolic (congestive) heart failure; J96.11 Chronic respiratory failure with hypoxia; J91.8 Pleural effusion in other conditions classified elsewhere; I48.20 Chronic atrial fibrillation, unspecified; Z68.41 Body mass index [BMI] 40.0-44.9, adult; E11.22 Type 2 diabetes mellitus with diabetic chronic kidney disease; D64.9 Anemia, unspecified; E11.42 Type 2 diabetes mellitus with diabetic polyneuropathy; N18.31 Chronic kidney disease, stage 3a; J43.9 Emphysema, unspecified; E66.01 Morbid (severe) obesity due to excess calories; Z93.0 Tracheostomy status; E11.65 Type 2 diabetes mellitus with hyperglycemia; E78.5 Hyperlipidemia, unspecified; I25.10 Atherosclerotic heart disease of native coronary artery without angina pectoris; R09.02 Hypoxemia; G89.29 Other chronic pain; Z79.01 Long term (current) use of anticoagulants; Z99.81 Dependence on supplemental oxygen; Z79.890 Hormone replacement therapy; Z79.899 Other long term (current) drug therapy; Z90.02 Acquired absence of larynx; Z85.21 Personal history of malignant neoplasm of larynx; Z87.891 Personal history of nicotine dependence
CPT/HCPCS: 31720; 32555; 36415; 71045; 71046; 80048; 82962; 83880; 85025; 93005; 94640; 97802; 99251; 99285; A4216; G0463; J1940; J2405

== ENCOUNTER → 2022-01-12 | Outpatient (CLI) | payer MEDICARE, SELFPAY ==
--- NOTE | 2022-01-12 09:07 | US_ITS ---
PROCEDURE: ULTRASOUND GUIDED THORACENTESIS. DATE: 01/12/2022. INDICATION: Male, 66 years old. Left pleural effusion. PHYSICIAN: Tashi Lipscomb M.D. PROCEDURE: The risks, benefits, and alternatives to the procedure were explained to the patient. The specific risks of bleeding, infection, and pneumothorax requiring chest tube insertion were discussed and accepted. Written informed consent was obtained. Ultrasonographic evaluation of the left lower pleural space was carried out. An adequate pocket was identified. The patient was placed in the sitting, upright position. The overlying skin was prepped and draped in sterile fashion. 1% lidocaine was administered subcutaneously for local anesthesia. Under ultrasound guidance, a 5 Pakistani thoracentesis needle/catheter system was advanced into the left posterior lower pleural fluid collection. Approximately 1900 mL of sigifredo-colored fluid was drained. The catheter was removed, and a sterile dressing was applied. The patient tolerated the procedure well. A chest x-ray was ordered. US/Thoracentesis W US IMPRESSION: Ultrasound-guided left thoracentesis. Electronically Signed: Tashi Lipscomb MD at 10:57 EST ,
[2022-01-12 09:26] VITALS: BP 104/54; BP 109/79; BP 115/69; PULSE 91; PULSE 94; RESP 20; TEMP 36.9; O2SAT 95; O2SAT 96; O2SAT 97
--- NOTE | 2022-01-12 09:40 | RAD_ITS ---
STUDY: X-RAY CHEST REASON FOR EXAM: Male patient, 66 year old. Status post left thoracentesis. TECHNIQUE: AP inspiration and expiration views. COMPARISON: Comparison is made with prior examination dated 12/27/2021. FINDINGS: A tracheostomy tube is in situ. The patient is status post left thoracentesis. Residual pleural-parenchymal changes are seen at the left lung base. No evidence of pneumothorax. RAD/Chest Insp/Exp 2 View IMPRESSION: No evidence of pneumothorax following the left thoracentesis. Electronically Signed: Tashi Lipscomb MD at 10:00 EST ,
[2022-01-12] MEDS: Lidocaine 2% (10 ml mdv) 10 ML Vial INFILT (10:16)
== END | disposition home or self-care (01) ==
LOC: US 09:05
PROVIDERS: PCP Family Medicine; Referring Provider Nurse Practitioner Acute Care; Visit Provider Nurse Practitioner Acute Care
DX: J90 Pleural effusion, not elsewhere classified (principal); Z79.01 Long term (current) use of anticoagulants
CPT/HCPCS: 32555; 71046

== ENCOUNTER → 2022-02-13 | Outpatient (CLI) | payer BC, SELFPAY ==
[2022-02-13 12:32] VITALS: PULSE 100; PULSE 74; PULSE 79; PULSE 84; PULSE 85; PULSE 87; PULSE 90; PULSE 91; O2SAT 92; O2SAT 94; O2SAT 95; O2SAT 96; O2SAT 97; O2SAT 98
--- NOTE | 2022-02-15 09:48 | PCM.PSN.6M ---
PSN 6 Minute Walk Test 6 Minute Walk Test 6 Minute Walk Test: 6 Minute Walk Test PSN:6-Minute Walk Test Start: 02/13/22 12:32 Freq: Status: Active Protocol: [id number] Document 02/13/22 12:32 VIVIANA (Rec: 02/13/22 12:36 VIVIANA [id number]) 6 Minute Walk Test Date Performed 02/13/22 Time Performed 12:15 Height 5 ft 11 in Weight: 290 lb Weight in Pounds 290.[address]: Maxi Doan Assistive device used: Cane Pre-test Oxygen Delivery Method Room Air Pulse Ox (%) 98 Pulse Rate (60-100 beats/min) 84 Dyspnea Jakub Scale (0-10) 1 Exertion Jakub Scale (6-20) 6 1st minute Oxygen Delivery Method Room Air Pulse Ox (%) 96 Pulse Rate (60-100 beats/min) 74 2nd minute Oxygen Delivery Method Room Air Pulse Ox (%) 97 Pulse Rate (60-100 beats/min) 85 3rd minute Oxygen Delivery Method Room Air Pulse Ox (%) 94 Pulse Rate (60-100 beats/min) 90 Number of Rests Taken 1 Reported Symptoms Dizziness 4th minute Oxygen Delivery Method Room Air Pulse Ox (%) 95 Pulse Rate (60-100 beats/min) 91 5th minute Oxygen Delivery Method Room Air Pulse Ox (%) 95 Pulse Rate (60-100 beats/min) 87 6th minute Oxygen Delivery Method Room Air Pulse Ox (%) 92 Pulse Rate (60-100 beats/min) 100 Dyspnea Jakub Scale (0-10) 2 Exertion Jakub Scale (6-20) 13 Post-test Oxygen Delivery Method Room Air Pulse Ox (%) 98 Pulse Rate (60-100 beats/min) 79 Full Laps Walked 8 Partial Lap, Number of Tiles Walked 25 Total Distance Walked (ft) 497 Interpretation Interpretation: The patient ambulated 497 feet over the course of 6 minutes beginning on room air with the use of a cane. Pretesting oxygen saturation was noted to be 98% on room air. With ambulation, the diane oxygen saturation was 92%. This testing indicated the presence of impaired walk distance along with significant exertional oxygen desaturation, consistent with a pulmonary limitation to exercise tolerance. Recommendations Recommendations: There is no indication for the use of supplemental oxygen at this time. However, close interval follow-up is recommended, given the degree of oxygen desaturation noted during this study.
== END | disposition home or self-care (01) ==
LOC: PSN 11:53
PROVIDERS: PCP Family Medicine; Visit Provider Nurse Practitioner Acute Care
DX: R09.02 Hypoxemia (principal)
CPT/HCPCS: 94618

== ENCOUNTER → 2022-02-21 | Outpatient (CLI) | payer MEDICARE, SELFPAY ==
--- NOTE | 2022-02-21 08:23 | RAD_ITS ---
EXAM: XR CHEST, 2 VIEWS CLINICAL INDICATION: chest pain, hx chronic pleural effusions TECHNIQUE: Frontal and lateral views of the chest. This report was created using Hubs[employer] report generation technology. COMPARISON: 01/12/2022 FINDINGS: LUNGS AND PLEURAL SPACES: There is a moderate to large left-sided pleural effusion. No pneumothorax. HEART: Unremarkable. Cardiac silhouette not enlarged. MEDIASTINUM: Central airways and mediastinal contour are unremarkable. BONES/JOINTS: Unremarkable. SOFT TISSUES: Unremarkable. RAD/Chest PA and Lateral IMPRESSION: Moderate to large left-sided pleural effusion. This is markedly increased from the reference exam. Electronically Signed: Aniceto Newberry MD at 17:46 EST ,
[2022-02-21 11:21] LABS: Absolute Lymphocyte Count 0.79 X10^3/uL (0.83-4.51); Absolute Neutrophil Count 7.2 X10^3/uL (2.0-7.7); Basophil# 0.05 X10^3/uL; Basophil% 0.5 % (0-1); Eosinophil# 0.12 X10^3/uL; Eosinophils% 1.3 % (0-5); Hematocrit 33.9 % (40-54); Hemoglobin 10.4 g/dL (13.0-16.5); Lymphocyte # 0.79 X10^3/ul (0.83-4.51); Lymphocyte % 8.6 % (19-41); Mean Corp Hgb Conc 30.7 g/dL (32-36); Mean Corpuscular Hgb 27.7 pg (27.0-32.0); Mean Corpuscular Volume 90.2 fL (80-94); Mean Platelet Vol. 10.1 fl (6.2-12.0); Monocyte# 0.91 X10^3/uL; NRBC Flagged by Analyzer 0 % (0-5); Neutrophil # 7.24 X10^3/uL (2.7-7.7); Neutrophil % 79.3 % (47-70); Platelet Count 323 K/mm3 (150-450); RBC Distribution Width CV 14.1 % (11.6-14.6); RBC Distribution Width SD 45.9 fl (35.1-43.9); Red Blood Count 3.76 M/mm3 (4.6-6.2); White Blood Count 9.1 K/mm3 (4.4-11.0)
[2022-02-21 11:55] LABS: Anion Gap 7 (5-15); BUN 40 mg/dL (7-18); BUN/Creat Ratio 21.1 RATIO (10-20); Calcium,Total 8.6 mg/dL (8.5-10.1); Chloride 103 mmol/L (98-107); EST Glomerular Filtration Rate 38 mL/min (>60); Est Glom Filt Rate - Afr Amer 46 mL/min (>60); Glucose 141 mg/dL (74-106); Potassium 4.9 mmol/L (3.5-5.1); Sodium Level 139 mmol/L (136-145)
== END | disposition home or self-care (01) ==
PROVIDERS: PCP Family Medicine; Referring Provider Nurse Practitioner Family; Visit Provider Nurse Practitioner Family
DX: J90 Pleural effusion, not elsewhere classified (principal); Z93.0 Tracheostomy status; I50.30 Unspecified diastolic (congestive) heart failure; R07.9 Chest pain, unspecified; R09.02 Hypoxemia; R06.02 Shortness of breath; I25.10 Atherosclerotic heart disease of native coronary artery without angina pectoris
CPT/HCPCS: 36415; 71046; 80048; 85025

== ENCOUNTER → 2022-03-13 | Outpatient (CLI) | payer MEDICARE, SELFPAY ==
--- NOTE | 2022-03-13 07:07 | US_ITS ---
PROCEDURE: ULTRASOUND GUIDED THORACENTESIS. DATE: 03/13/2022. INDICATION: Male, 67 years old. Left thoracentesis PHYSICIAN: Tashi Lipscomb M.D. PROCEDURE: The risks, benefits, and alternatives to the procedure were explained to the patient. The specific risks of bleeding, infection, and pneumothorax requiring chest tube insertion were discussed and accepted. Written informed consent was obtained. Ultrasonographic evaluation of the left lower pleural space was carried out. An adequate pocket was identified. The patient was placed in the sitting, upright position. The overlying skin was prepped and draped in sterile fashion. 1% lidocaine was administered subcutaneously for local anesthesia. Under ultrasound guidance, a 5 Swedish thoracentesis needle/catheter system was advanced into the left posterior lower pleural fluid collection. Approximately 1800 mL of sigifredo-colored fluid was drained. The catheter was removed, and a sterile dressing was applied. The patient tolerated the procedure well. A chest x-ray was ordered. US/Thoracentesis W US IMPRESSION: Ultrasound-guided left thoracentesis. Electronically Signed: Tashi Lipscomb MD at 8:56 EST ,
[2022-03-13 08:08] VITALS: BP 108/63; BP 112/57; BP 115/63; BP 122/65; BP 127/64; BP 132/71; BP 98/65; BP 99/60; PULSE 81; PULSE 82; PULSE 88; PULSE 90; PULSE 91; PULSE 95; RESP 20; RESP 22; RESP 24; TEMP 36.6; O2SAT 95; O2SAT 96; O2SAT 97
[2022-03-13] MEDS: Lidocaine 2% (20 ml mdv) 20 ML Vial (08:25)
--- NOTE | 2022-03-13 08:35 | RAD_ITS ---
STUDY: X-RAY CHEST REASON FOR EXAM: Male, 67 years old. Post thora TECHNIQUE: AP inspiration and expiration views. COMPARISON: Comparison is made with prior study dated 08/21/2022. FINDINGS: The patient is status post left thoracentesis. There is no evidence of pneumothorax. Mild residual left pleural-parenchymal changes. RAD/Chest Insp/Exp 2 View IMPRESSION: No evidence of pneumothorax on the post left thoracentesis images. Electronically Signed: Tashi Lipscomb MD at 10:03 EST ,
== END | disposition home or self-care (01) ==
PROVIDERS: PCP Family Medicine; Referring Provider Internal Medicine Critical Care Medicine; Visit Provider Internal Medicine Critical Care Medicine
DX: J90 Pleural effusion, not elsewhere classified (principal)
CPT/HCPCS: 32555; 71046

== ENCOUNTER → 2022-04-27 | Outpatient (CLI) | payer MEDICARE, SELFPAY ==
[2022-04-27 13:20] LABS: Albumin, Serum 3.8 g/dL (3.2-5.0); BUN 83 mg/dL (7-18); BUN/Creat Ratio 29.4 RATIO (10-20); Calcium,Total 8.9 mg/dL (8.5-10.1); Chloride 97 mmol/L (98-107); Creatinine, Serum 2.82 mg/dL (0.70-1.30); EST Glomerular Filtration Rate 24 mL/min (>60); Est Glom Filt Rate - Afr Amer 29 mL/min (>60); Glucose 138 mg/dL (74-106); Phosphorus 4.7 mg/dL (2.5-4.9); Potassium 4.5 mmol/L (3.5-5.1); Sodium Level 134 mmol/L (136-145)
== END | disposition home or self-care (01) ==
LOC: LAB 11:53
PROVIDERS: PCP Family Medicine; Referring Provider Internal Medicine Nephrology; Visit Provider Internal Medicine Nephrology
DX: N18.32 Chronic kidney disease, stage 3b (principal); E21.1 Secondary hyperparathyroidism, not elsewhere classified
CPT/HCPCS: 36415; 80069

== ENCOUNTER 2022-08-19 16:05 | Emergency (ER) | payer MEDICARE, SELFPAY ==
[2022-08-19 16:06] VITALS: BP 117/63; PULSE 93; RESP 20; TEMP 36.9; O2SAT 100
[2022-08-19 16:17] VITALS: PULSE 96; RESP 21; O2SAT 96
[2022-08-19 16:18] VITALS: BMI 37.9
--- NOTE | 2022-08-19 16:20 | EDS_ITS ---
HPI <PRABHU Benito - Last Filed: 08/19/22 18:28> History of Present Illness Chief Complaint: Shortness of Breath Narrative Narrative: 67-year-old male presents with increasing shortness of breath and his left-sided Pleurx catheter is blocked. He states it was placed in April 2022 at [place] for recurrent pleural effusions. He is not sure why they were occuring. He had been draining fluid once a week at home but nothing has drained over the last month. 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 [facility] <PRABHU Benito - Last Filed: 08/19/22 18:28> [facility] Medical History (Updated 08/19/22 @ 17:52 by PRABHU Benito) (HFpEF) heart failure with preserved ejection fraction Acute hypercapnic respiratory failure Ambulates with cane Anticoagulant long-term use Anxiety Atherosclerosis of coronary artery of [place] heart without angina pectoris Back pain Benign neoplasm of colon Cholelithiasis Chronic a-fib Chronic diastolic (congestive) heart failure Chronic pain Chronic renal failure, stage 3 (moderate) CKD (chronic kidney disease) COPD (chronic obstructive pulmonary disease) COPD with acute exacerbation Diabetes Diabetes mellitus, type II Diverticulosis of colon (without mention of hemorrhage) Easy bruising Edema Emphysema, unspecified Esophageal dysmotility Essential hypertension Excessive bleeding Former smoker Gastric reflux Gastroenteritis Gout Hiatal hernia History of colon polyps History of renal disease History of steroid therapy History of stress test Hyperlipidemia Hypothyroidism Hypoxemia Injury of back Injury of head and neck Insomnia Irregular heart beat Kidney failure Laryngeal cancer Leg cramps Malignant neoplasm of head, neck and face Migraine headache Morbid obesity Morbid obesity Normal stress echocardiogram Obesity Obesity On home oxygen therapy Pleural effusion, left Polyneuropathy due to type 2 diabetes mellitus Recurrent left pleural effusion Shortness of breath Shortness of breath on exertion Thyroid disease Type 2 diabetes mellitus without complication Type 2 diabetes with stage 3 chronic kidney disease GFR 30-59 Walker as ambulation aid Wears glasses Home Medications levothyroxine 150 mcg tablet 150 mcg PO DAILY hypothyroidism 06/04/14 [History Last Taken 12/05/21] atorvastatin 40 mg tablet 40 mg PO DAILY@1700 cholesterol 04/12/17 [History Last Taken 12/05/21] ipratropium 0.5 mg-albuterol 3 mg (2.5 mg base)/3 mL nebulization soln 3 ml inhalation Q6H sob 04/12/17 [History Last Taken 12/06/21] flash glucose sensor (FreeStyle Zayra 2 Sensor kit) #2 ea 05/17/21 [Rx Last Taken Unknown] lisinopril 5 mg tablet 5 mg PO DAILY BLOOD PRESSURE 11/07/21 [History Last Taken 12/05/21] acetaminophen 325 mg tablet 650 mg PO DAILY PRN Pain 12/06/21 [History Last Taken 12/05/21] budesonide 0.5 mg/2 mL suspension for nebulization (Pulmicort) 0.5 mg inhalation BID sob 12/06/21 [History Last Taken Unknown] guaifenesin 600 mg tablet, extended release 12 hr (Mucinex) 600 mg PO DAILY PRN Congestion 12/06/21 [History Last Taken 12/05/21] melatonin 10 mg tablet 20 mg PO QHS SLEEP 12/06/21 [History Last Taken Unknown] omeprazole 20 mg capsule,delayed release 20 mg PO DAILY GERD 12/06/21 [History Last Taken 12/05/21] diltiazem HCl 120 mg capsule,extended release 24 hr 120 mg PO BID #180 caps 12/14/21 [Rx Last Taken Unknown] apixaban 5 mg tablet (Eliquis) 5 mg PO BID #60 tabs 12/15/21 [Rx Last Taken Unknown] cyanocobalamin (vitamin B-12) 2,500 mcg tablet 2,500 mcg PO DAILY supplement 12/15/21 [History Last Taken Unknown] furosemide 40 mg tablet 40 mg PO BID EDEMA #60 tabs 02/21/22 [Rx Last Taken Unknown] metolazone 2.5 mg tablet 2.5 mg PO MOWEFR EDEMA #30 tabs 02/21/22 [Rx Last Taken Unknown] spironolactone 25 mg tablet 25 mg PO DAILY 02/21/22 [History Last Taken Unknown] Levemir FlexPen 100 unit/mL (3 mL) solution subcutaneous insulin pen (insulin detemir U-100) 32 unit (0.32 mL) subcut QHS #30 mL 04/03/22 [Rx Last Taken Unknown] Trulicity 4.5 mg/0.5 mL subcutaneous pen injector (dulaglutide) 4.5 mg (0.5 mL) subcut FR DIABETES #6 mL 04/03/22 [Rx Last Taken Unknown] insulin aspart U-100 100 unit/mL (3 mL) subcutaneous pen (Novolog FlexPen U-100 Insulin aspart) 12 unit (0.12 mL) subcut TID #45 mL 04/03/22 [Rx Last Taken Unknown] insulin lispro 100 unit/mL subcutaneous pen (Humalog KwikPen (U-100) Insulin) 12 unit (0.12 mL) subcut TID #36 mL 04/07/22 [Rx Last Taken Unknown] potassium chloride 40 mEq/15 mL oral liquid 40 meq (15 mL) PO DAILY 10 days #150 mL 08/19/22 [Rx Last Taken Unknown] Allergy/AdvReac Type Severity Reaction Status Date / Time acetaminophen [From Percocet] AdvReac Intermediate headache Verified 08/19/22 16:08 oxycodone [From Percocet] AdvReac Intermediate headache Verified 08/19/22 16:08 egg [eggs] AdvReac Vomiting Verified 08/19/22 16:08 Family History Mother Diabetes Hypertension Kidney disease Heart failure Father CVA (cerebral vascular accident) Hypertension Heart disease ischemic Brother Diabetes Surgical History History of cardiac catheterization History of exploratory laparotomy History of laryngectomy (2007) History of thyroidectomy Hx of colonoscopy Presence of tracheostomy Social History Smoking Status: Former smoker Smokeless tobacco user: snuff how long ago did patient quit smokin years ago alcohol intake: never substance use type: does not use caffeine: Yes what type of physical activity do you participate in: none frequency: does not exercise ROS <PRABHU Benito - Last Filed: 08/19/22 18:28> ROS ED ROS Narrative Constitutional: Negative for fever, chills, malaise. CVS: Negative for palpitations, chest pain, syncope. Respiratory: Positive for shortness of breath. Negative for cough. GI: Negative for abdominal pain, nausea, vomiting, diarrhea. EXAM <PRABHU Benito - Last Filed: 08/19/22 18:28> Physical Exam Narrative Exam Narrative: CONST: Patient sitting in no acute distress. EYES: Normal inspection. NECK: Normal inspection. RESP: No respiratory distress, left lower lobe slightly diminished. Left Pleurx catheter has some sediment in it. CVS: Regular rate and rhythm, no murmur, no gallop. ABD: Soft and nontender, no guarding or rebound, nondistended. SKIN: Color normal, no rash, warm, dry, intact. EXTREMITIES: Normal appearance, no pedal edema. NEURO: Oriented x4. PSYCH: Normal affect. Const Vital Signs: 08/19/22 16:06 08/19/22 16:17 08/19/22 16:21 Temperature 98.5 F Temperature Source Temporal Pulse Rate 93 96 Respiratory Rate 20 H 21 H Respiratory Effort Short of Breath Labored Respiratory Pattern Tachypnea Blood Pressure 117/63 Blood Pressure Mean 81 Pulse Ox 100 96 Oxygen Delivery Method Room Air Room Air Room Air 08/19/22 17:10 Temperature Temperature Source Pulse Rate 92 Respiratory Rate 31 H Respiratory Effort Respiratory Pattern Blood Pressure 113/61 Blood Pressure Mean 78 Pulse Ox 94 Oxygen Delivery Method Room Air <Dr. Ramy Billingsley MD - Last Filed: 08/19/22 17:11> Physical Exam Const Vital Signs: 08/19/22 16:06 08/19/22 16:17 08/19/22 16:21 Temperature 98.5 F Temperature Source Temporal Pulse Rate 93 96 Respiratory Rate 20 H 21 H Respiratory Effort Short of Breath Labored Respiratory Pattern Tachypnea Blood Pressure 117/63 Blood Pressure Mean 81 Pulse Ox 100 96 Oxygen Delivery Method Room Air Room Air Room Air 08/19/22 17:10 Temperature Temperature Source Pulse Rate 92 Respiratory Rate 31 H Respiratory Effort Respiratory Pattern Blood Pressure 113/61 Blood Pressure Mean 78 Pulse Ox 94 Oxygen Delivery Method Room Air MDM <PRABHU Benito - Last Filed: 08/19/22 18:28> [facility] Narrative Medical decision making narrative: History gathered from: Patient and Patient with 1 month of increasing shortness of breath and blockage of his left- sided Pleurx catheter. He has this for chronic left pleural effusion. He also has history of tracheostomy for laryngeal cancer and A-fib on Eliquis. He denies fever or cough. He appears well and nontoxic. He is in A-fib in the 90s and the rest of his vitals are stable. He is 94% or vomiting room air. Left lung sounds are diminished, otherwise benign exam. CBC shows normal white count at 10.3. Chronic anemia 9.7. Potassium is 2.7 and magnesium 1.4 and he was given p.o. potassium and magnesium replacement. Creatinine of 1.97 is improved from his baseline. EKG is rate controlled A-fib with no acute ischemic changes and troponin is 15. CXR shows small left pleural effusion. His O2 sat is 96% and he is in no distress so he does not require emergent thoracentesis. I recommend he call the [facility] group handling this on Sunday for follow- up. I also prescribed additional potassium to take at home. Patient was comfortable with this plan and discharged in stable condition. Differential: Left pleural effusion, pneumothorax, pneumonia, ACS, do not suspect PE as he is on Eliquis I have personally performed a face to face assessment of the patient and have reviewed the MARQUEZ Note. I performed a substantive portion of the visit including all aspects of the following. My blandon findings include: History is 67-year-old male history of A-fib on Eliquis and chronic left pleural effusion for which he had a thoracostomy tube placed by either cardiothoracic surgeon or interventional radiology at [facility]. Has been in since mid April. It has not been draining for the last 2 to 3 weeks. He has gotten more short of breath. No fever. No hemoptysis. He also has a history of laryngeal cancer and a tracheostomy. Exam is [well-appearing 67-year-old male. Vital signs stable afebrile. Pulse ox 96% on room air no hypoxia. He is in no distress. H EENT exam unremarkable. Moist use membranes. Neck nontender. Midline tracheostomy. Lungs clear to auscultation bilaterally. Heart A-fib rate of about 90. No murmur. Chest wall nontender. Abdomen soft nontender. His left anterior chest wall left upper quadrant there is a thoracostomy tube placed. He does have liquid in it is clear. He moves all 4 extremities. Calves are nontender without edema. Neurologically he is awake and alert.] Medical Decision Making [67-year-old male more short of breath with a history of a pleural effusion with a drain tube in. Also a history of A-fib on Eliquis. Undergone cardiac work-up with chest x-ray.] Other additions or changes: [None] Lab Data Attestation: I reviewed the patient's lab results. Labs: Laboratory Results - last 24 hr 08/19/22 16:39 WBC 10.3 RBC 3.42 L Hgb 9.7 L Hct 30.3 L MCV 88.6 MCH 28.4 MCHC 32.0 RDW Std Deviation 41.1 RDW Coeff of Alisson 12.6 Plt Count 370 MPV 9.0 Immature Gran % (Auto) 0.500 Neut % (Auto) 84.8 H Lymph % (Auto) 4.9 L [place] % (Auto) 9.4 Eos % (Auto) 0.1 Baso % (Auto) 0.3 Absolute Neuts (auto) 8.7 H Absolute Lymphs (auto) 0.51 L Nucleated RBC % 0 Differential Comment SCANNED Sodium 136 Potassium 2.7 L* Chloride 95 L Carbon Dioxide 32.0 Anion Gap 9 BUN 45 H Creatinine 1.97 H Estim Creat Clear Calc 38.75 Est GFR (MDRD) Af Amer 44 L Est GFR (MDRD) Non-Af 36 L BUN/Creatinine Ratio 22.8 H Glucose 145 H Calcium 7.0 L Magnesium 1.4 L Troponin I High Sens 15 Radiography Diagnostic Testing: Clinical Impression(s) from Imaging Studies Chest X-Ray 08/19/22 16:26 IMPRESSION: No acute findings. Chronic scarring at the left lung base. Electronically Signed: Adrienne Davalos MD at 17:32 EDT , EKG Initial EKG: Attestation: I personally reviewed and interpreted this EKG as follows: Interpretation: Atrial Fibrillation Comments: A-fib at 92 bpm, no acute ischemic changes Prior EKG tracings: available for review Prior: Unchanged <Dr. Ramy Billingsley MD - Last Filed: 08/19/22 17:11> [facility] Narrative Medical decision making narrative: I have personally performed a face to face assessment of the patient and have reviewed the MARQUEZ Note. I performed a substantive portion of the visit including all aspects of the following. My blandon findings include: History is 67-year-old male history of A-fib on Eliquis and chronic left pleural effusion for which he had a thoracostomy tube placed by either cardiothoracic surgeon or interventional radiology at [facility]. Has been in since mid April. It has not been draining for the last 2 to 3 weeks. He has gotten more short of breath. No fever. No hemoptysis. He also has a history of laryngeal cancer and a tracheostomy. Exam is [well-appearing 67-year-old male. Vital signs stable afebrile. Pulse ox 96% on room air no hypoxia. He is in no distress. H EENT exam unremarkable. Moist use membranes. Neck nontender. Midline tracheostomy. Lungs clear to auscultation bilaterally. Heart A-fib rate of about 90. No murmur. Chest wall nontender. Abdomen soft nontender. His left anterior chest wall left upper quadrant there is a thoracostomy tube placed. He does have liquid in it is clear. He moves all 4 extremities. Calves are nontender without edema. Neurologically he is awake and alert.] Medical Decision Making [67-year-old male more short of breath with a history of a pleural effusion with a drain tube in. Also a history of A-fib on Eliquis. Undergone cardiac work-up with chest x-ray.] Other additions or changes: [None] History & Record Review Discussion w/independent historian: Patient and Family Lab Data Lab results narrative: CBC shows normal white count of 10.3. H&H 9.7 and 30.3 which is his baseline chronic anemia. Platelets of 370. Labs: Laboratory Results - last 24 hr 08/19/22 16:39 WBC 10.3 RBC 3.42 L Hgb 9.7 L Hct 30.3 L MCV 88.6 MCH 28.4 MCHC 32.0 RDW Std Deviation 41.1 RDW Coeff of Alisson 12.6 Plt Count 370 MPV 9.0 Immature Gran % (Auto) 0.500 Neut % (Auto) 84.8 H Lymph % (Auto) 4.9 L [place] % (Auto) 9.4 Eos % (Auto) 0.1 Baso % (Auto) 0.3 Absolute Neuts (auto) 8.7 H Absolute Lymphs (auto) 0.51 L Nucleated RBC % 0 Differential Comment SCANNED Sodium 136 Potassium 2.7 L* Chloride 95 L Carbon Dioxide 32.0 Anion Gap 9 BUN 45 H Creatinine 1.97 H Estim Creat Clear Calc 38.75 Est GFR (MDRD) Af Amer 44 L Est GFR (MDRD) Non-Af 36 L BUN/Creatinine Ratio 22.8 H Glucose 145 H Calcium 7.0 L Magnesium 1.4 L Troponin I High Sens 15 Radiography Chest X-Ray - ED: 2 View, Read by ED Physician, Heart, Lungs, Mediastinum, Bony Structures, Chronic Changes and Left Effusion Diagnostic Testing: Clinical Impression(s) from Imaging Studies Chest X-Ray 08/19/22 16:26 IMPRESSION: No acute findings. Chronic scarring at the left lung base. Electronically Signed: Adrienne Davalos MD at 17:32 EDT , Chest x-ray, 2 views, AP and lateral, interpreted by myself shows chronic changes. Small left pleural effusion. Much improved from prior studies. Left thoracostomy tube. Rhythm Strip Rhythm Strip: A-fib Rate: 92 Ectopy: None EKG Initial EKG: Comments: A-fib at 92 bpm, no acute ischemic changes. Unchanged from prior Discharge Plan Triage Chief Complaint: Shortness of Breath ED Midlevel Provider: Soraida Guerra ED Provider: Ramy Billingsley Dx/Rx/DC Orders Clinical Impression: Pleural effusion, left, Acute hypokalemia, Hypomagnesemia Instructions: ED Hypokalemia, ED Pleural Effusion Prescriptions: New potassium chloride 40 mEq/15 mL liquid 40 meq PO DAILY 10 Days Qty: 150 0RF No Action lisinopril 5 mg tablet 5 mg PO DAILY Hold Instructions: Hold for 1 week until kidney function, creatinine returns to baseline 1.70. cyanocobalamin (vitamin B-12) 2,500 mcg tablet 2,500 mcg PO DAILY Eliquis 5 mg tablet 5 mg PO BID Qty: 60 11RF insulin aspart U-100 [Novolog FlexPen U-100 Insulin] 100 unit/mL (3 mL) insulin pen 12 unit subcut TID Qty: 45 1RF Levemir FlexPen 100 unit/mL (3 mL) insulin pen 32 unit subcut QHS Qty: 30 1RF Trulicity 4.5 mg/0.5 mL pen injector 4.5 mg subcut FR Qty: 6 1RF spironolactone 25 mg tablet 25 mg PO DAILY Hold Instructions: Med change 02/20/21 furosemide 40 mg tablet 40 mg PO BID Qty: 60 12RF Hold Instructions: Hold for 1 week until kidney function, creatinine returns to baseline 1.70. metolazone 2.5 mg tablet 2.5 mg PO MOWEFR Qty: 30 6RF Hold Instructions: Hold for 1 week until kidney function, creatinine returns to baseline 1.70. levothyroxine 150 MCG tablet 150 mcg PO DAILY Patient Comments: thyroid atorvastatin 40 MG tablet 40 mg PO DAILY@1700 ipratropium-albuterol 3 ML solution for nebulization 3 ml inhalation Q6H Patient Comments: breathing acetaminophen 325 mg Tablet 650 mg PO DAILY PRN (Reason: Pain) omeprazole 20 mg capsule,delayed release(DR/EC) 20 mg PO DAILY Patient Comments: TAKE 1 CAPSULE BY MOUTH ONCE DAILY melatonin 10 mg Tablet 20 mg PO QHS guaifenesin [Mucinex] 600 mg Tablet Extended Release 12hr 600 mg PO DAILY PRN (Reason: Congestion) budesonide [Pulmicort] 0.5 mg/2 mL Suspension For Nebulization 0.5 mg INHALATION BID (DME) FreeStyle Zayra 2 Sensor Kit See Rx Instructions .ROUTE .MEDSUPPLY Qty: 2 6RF Rx Instructions: As directed diltiazem HCl 120 mg capsule,extended release 24hr 120 mg PO BID Qty: 180 3RF Rx Instructions: Hold for heart less than 60 or systolic blood pressure less than 100 mmHg. insulin lispro [Humalog KwikPen Insulin] 100 unit/mL insulin pen 12 unit subcut TID Qty: 36 1RF Primary Care Provider: Chinmay Sin Referrals: Chinmay Sin MD [Primary Care Provider] - Activity Restrictions/Additional Instructions: Your potassium was low so I prescribed potassium to take for the next 10 days at home. There is a left pleural effusion in your lung but your oxygen levels have been normal. You need to call the [facility] group in charge of your Pleurx catheter on Sunday to have them evaluate it. Disposition Disposition: Home, Self Care
[2022-08-19 16:21] VITALS: O2SAT 97
--- NOTE | 2022-08-19 16:26 | RAD_ITS ---
INDICATION: dyspnea EXAMINATION/TECHNIQUE: X-RAY - XR Chest 2 Views COMPARISON: 03/13/2022, 02/21/2022. FINDINGS: LINES/DEVICES: None. LUNGS: Chronic scarring of the left lung base. The lungs are otherwise clear. MEDIASTINUM AND CARDIOVASCULAR STRUCTURES: Cardiac silhouette not enlarged. Central airways and mediastinal contour are unremarkable. BONES AND SOFT TISSUES: Unremarkable. RAD/Chest PA and Lateral IMPRESSION: No acute findings. Chronic scarring at the left lung base. Electronically Signed: Adrienne Davalos MD at 17:32 EDT Reading Location ID and State: [id number] / Tel , Service support ,
[2022-08-19 16:46] LABS: Absolute Lymphocyte Count 0.51 X10^3/uL (0.83-4.51); Absolute Neutrophil Count 8.7 X10^3/uL (2.0-7.7); Basophil# 0.03 X10^3/uL; Basophil% 0.3 % (0-1); Eosinophil# 0.01 X10^3/uL; Eosinophils% 0.1 % (0-5); Hematocrit 30.3 % (40-54); Hemoglobin 9.7 g/dL (13.0-16.5); Lymphocyte # 0.51 X10^3/ul (0.83-4.51); Lymphocyte % 4.9 % (19-41); Mean Corpuscular Hgb 28.4 pg (27.0-32.0); Mean Corpuscular Volume 88.6 fL (80-94); Monocyte# 0.97 X10^3/uL; Monocyte% 9.4 % (0-10); NRBC Flagged by Analyzer 0 % (0-5); Neutrophil # 8.74 X10^3/uL (2.7-7.7); Neutrophil % 84.8 % (47-70); POSITIVE DIFFERENTIAL YES; Platelet Count 370 K/mm3 (150-450); RBC Distribution Width CV 12.6 % (11.6-14.6); RBC Distribution Width SD 41.1 fl (35.1-43.9); Red Blood Count 3.42 M/mm3 (4.6-6.2); White Blood Count 10.3 K/mm3 (4.4-11.0)
[2022-08-19 16:47] LABS: Differential Indicated SCAN CRITERIA MET
[2022-08-19 17:10] VITALS: BP 113/61; PULSE 92; RESP 31; O2SAT 94
[2022-08-19 17:10] LABS: Differential Comment SCANNED
[2022-08-19 17:18] LABS: Anion Gap 9 (5-15); BUN 45 mg/dL (7-18); BUN/Creat Ratio 22.8 RATIO (10-20); Chloride 95 mmol/L (98-107); Creatinine, Serum 1.97 mg/dL (0.70-1.30); EST Glomerular Filtration Rate 36 mL/min (>60); Est Glom Filt Rate - Afr Amer 44 mL/min (>60); Estimated Creatinine Clearance 38.75 ml/min; Glucose 145 mg/dL (74-106); Potassium 2.7 mmol/L (3.5-5.1); Sodium Level 136 mmol/L (136-145); Troponin-I HS 15 pg/mL (3.0-78.0)
[2022-08-19 17:37] LABS: Magnesium 1.4 mg/dL (1.6-2.6)
[2022-08-19] MEDS: Potassium Chloride Oral Soln 20 MEQ/15 ML UDC 40 MEQ PO (17:39)
[2022-08-19] MEDS: Magnesium Chloride 64 MG Delay Rel.Tablet 128 MG PO (18:06)
[2022-08-19 18:28] VITALS: BP 124/65; PULSE 99; RESP 18; O2SAT 95
== END 2022-08-19 18:41 | disposition home or self-care (01) ==
PROVIDERS: Physician Assistant; Emergency Provider Emergency Medicine; PCP Family Medicine; Visit Provider Emergency Medicine
DX: J90 Pleural effusion, not elsewhere classified (principal); Z93.0 Tracheostomy status; I50.32 Chronic diastolic (congestive) heart failure; I13.0 Hypertensive heart and chronic kidney disease with heart failure and stage 1 through stage 4 chronic kidney disease, or unspecified chronic kidney disease; E11.42 Type 2 diabetes mellitus with diabetic polyneuropathy; E11.22 Type 2 diabetes mellitus with diabetic chronic kidney disease; I48.20 Chronic atrial fibrillation, unspecified; Z79.4 Long term (current) use of insulin; N18.30 Chronic kidney disease, stage 3 unspecified; Z87.891 Personal history of nicotine dependence; E87.6 Hypokalemia; E78.5 Hyperlipidemia, unspecified; E83.42 Hypomagnesemia; I25.10 Atherosclerotic heart disease of native coronary artery without angina pectoris; Z85.21 Personal history of malignant neoplasm of larynx; E03.9 Hypothyroidism, unspecified; Z79.899 Other long term (current) drug therapy; Z79.51 Long term (current) use of inhaled steroids; K21.9 Gastro-esophageal reflux disease without esophagitis; Z79.01 Long term (current) use of anticoagulants; R60.9 Edema, unspecified; Z79.85 Long-term (current) use of injectable non-insulin antidiabetic drugs
CPT/HCPCS: 71046; 80048; 83735; 84484; 85025; 93005; 99284

== ENCOUNTER 2022-09-12 16:11 | Inpatient (IN) | payer MEDICARE, SELFPAY ==
[2022-09-12] VITALS (12 sets, daily range): BP systolic 107–154; BP diastolic 60–87; PULSE 97–113; RESP 18–33; TEMP 36.5–37.8; O2SAT 91–100; BMI 38.9; BMI 38.5
--- NOTE | 2022-09-12 16:47 | EKG12_ITS ---
Test Reason : CP Blood Pressure : / mmHG Vent. Rate : 109 BPM Atrial Rate : 000 BPM P-R Int : 000 ms QRS Dur : 076 ms QT Int : 312 ms P-R-T Axes : 000 028 133 degrees QTc Int : 420 ms Atrial fibrillation with rapid ventricular response with premature ventricular or aberrantly conducte d complexes Low voltage QRS Septal infarct , age undetermined Abnormal ECG Confirmed by ELIN CHENG, LUIS ([id number]), production editor DARRELL PÉREZ ([id number]) on 09/18/2022 9:10:21 AM Referred By: Confirmed By:MARGE WORTHINGTON MD
--- NOTE | 2022-09-12 16:56 | EDS_ITS ---
HPI History of Present Illness Chief Complaint: Shortness of Breath Informant: patient Onset/Context/Timing Onset: Days (3) Context: sudden Timing: Continuous Quality: Positive for Dyspnea on exertion Worsened by: Exertion Relieved by: Rest Associated Symptoms cough; Negative for rhinorrhea, post nasal drip, ear pain, fever, sore throat, chills, sweats, clear sputum, white sputum, yellow sputum or green sputum Chest Pain: Positive for Intermittent and Tightness Narrative Narrative: Patient presents with shortness of breath that has been getting worse over the last 3 days. Patient states that it came on rather suddenly. Patient states it has been constant. Patient states his breathing is worse whenever he walks long-term across the room. Patient states it is better with rest. Patient states he has a cough with slight sputum production. Patient denies any fevers or chills. Patient admits to some intermittent pain in his chest. Patient had a recent chest tube placed. Patient had it removed yesterday. Patient states that he had an x-ray done after the chest tube was removed which showed fluid in his lungs and possible pneumonia. Patient states he was not started on any antibiotics or diuretics. [facility] Medical History (Updated 09/12/22 @ 20:[address] Jerry Elise, DO) (HFpEF) heart failure with preserved ejection fraction Ambulates with cane Anticoagulant long-term use Anxiety Atherosclerosis of coronary artery of [place] heart without angina pectoris Back pain Benign neoplasm of colon Chronic a-fib Chronic pain Chronic renal failure, stage 3 (moderate) COPD (chronic obstructive pulmonary disease) Diabetes mellitus, type II Diverticulosis of colon (without mention of hemorrhage) Emphysema, unspecified Esophageal dysmotility Essential hypertension Former smoker Gastric reflux Gastroenteritis Gout Hiatal hernia History of colon polyps Hyperlipidemia Hypothyroidism Injury of back Injury of head and neck Laryngeal cancer Malignant neoplasm of head, neck and face Migraine headache Obesity On home oxygen therapy Recurrent left pleural effusion Type 2 diabetes mellitus without complication Walker as ambulation aid Wears glasses Home Medications levothyroxine 150 mcg tablet 150 mcg PO DAILY hypothyroidism 06/04/14 [History Last Taken 12/05/21] atorvastatin 40 mg tablet 40 mg PO DAILY@1700 cholesterol 04/12/17 [History Last Taken 12/05/21] ipratropium 0.5 mg-albuterol 3 mg (2.5 mg base)/3 mL nebulization soln 3 ml inhalation Q6H sob 04/12/17 [History Last Taken 12/06/21] flash glucose sensor (FreeStyle Zayra 2 Sensor kit) #2 ea 05/17/21 [Rx Last Taken Unknown] lisinopril 5 mg tablet 5 mg PO DAILY BLOOD PRESSURE 11/07/21 [History Last Taken 12/05/21] acetaminophen 325 mg tablet 650 mg PO DAILY PRN Pain 12/06/21 [History Last Taken 12/05/21] budesonide 0.5 mg/2 mL suspension for nebulization (Pulmicort) 0.5 mg inhalation BID sob 12/06/21 [History Last Taken Unknown] guaifenesin 600 mg tablet, extended release 12 hr (Mucinex) 600 mg PO DAILY PRN Congestion 12/06/21 [History Last Taken 12/05/21] omeprazole 20 mg capsule,delayed release 20 mg PO DAILY GERD 12/06/21 [History Last Taken 12/05/21] diltiazem HCl 120 mg capsule,extended release 24 hr 120 mg PO BID #180 caps 12/14/21 [Rx Last Taken Unknown] apixaban 5 mg tablet (Eliquis) 5 mg PO BID #60 tabs 12/15/21 [Rx Last Taken Unknown] cyanocobalamin (vitamin B-12) 2,500 mcg tablet 2,500 mcg PO DAILY supplement 12/15/21 [History Last Taken Unknown] furosemide 40 mg tablet 40 mg PO BID EDEMA #60 tabs 02/21/22 [Rx Last Taken Unknown] metolazone 2.5 mg tablet 2.5 mg PO MOWEFR EDEMA #30 tabs 02/21/22 [Rx Last Taken Unknown] spironolactone 25 mg tablet 25 mg PO DAILY 02/21/22 [History Last Taken Unknown] Trulicity 4.5 mg/0.5 mL subcutaneous pen injector (dulaglutide) 4.5 mg (0.5 mL) subcut FR DIABETES #6 mL 04/03/22 [Rx Last Taken Unknown] insulin aspart U-100 100 unit/mL (3 mL) subcutaneous pen (Novolog FlexPen U-100 Insulin aspart) 12 unit (0.12 mL) subcut TID #45 mL 04/03/22 [Rx Last Taken Unknown] insulin lispro 100 unit/mL subcutaneous pen (Humalog KwikPen (U-100) Insulin) 12 unit (0.12 mL) subcut TID #36 mL 04/07/22 [Rx Last Taken Unknown] potassium chloride 40 mEq/15 mL oral liquid 40 meq (15 mL) PO DAILY 10 days #150 mL 08/19/22 [Rx Last Taken Unknown] ferrous sulfate 325 mg (65 mg iron) tablet (FeroSul) 325 mg PO DAILY 08/29/22 [History Last Taken Unknown] insulin detemir U-100 100 unit/mL (3 mL) subcutaneous pen (Levemir FlexPen) 20 unit subcut QHS 09/12/22 [History Last Taken Unknown] Allergy/AdvReac Type Severity Reaction Status Date / Time acetaminophen [From Percocet] AdvReac Intermediate headache Verified 09/12/22 16:13 oxycodone [From Percocet] AdvReac Intermediate headache Verified 09/12/22 16:13 egg [eggs] AdvReac Vomiting Verified 09/12/22 16:13 Family History Mother Diabetes Hypertension Kidney disease Heart failure Father CVA (cerebral vascular accident) Hypertension Heart disease ischemic Brother Diabetes Surgical History History of cardiac catheterization History of exploratory laparotomy History of laryngectomy (2007) History of thyroidectomy Hx of colonoscopy Presence of tracheostomy Social History Smoking Status: Former smoker Smokeless tobacco user: snuff how long ago did patient quit smokin years ago alcohol intake: never substance use type: does not use caffeine: Yes what type of physical activity do you participate in: none frequency: does not exercise ROS ROS ED Constitutional Constitutional ED: Denies chills or fever(s) Eyes Eyes: Reports blurry vision; Denies diplopia ENT ENT ED: Denies rhinorrhea or sore throat Cardiovascular Cardiovascular: Reports chest pain; Denies palpitations Respiratory/Chest Respiratory/Chest: Reports cough and dyspnea Gastrointestinal Gastrointestinal: Denies nausea or vomiting Genitourinary Genitourinary ED: Denies dysuria or hematuria Musculoskeletal Musculoskeletal: Reports back pain; Denies neck pain Integumentary Denies abscess or rash Neurologic Neurologic: Denies headache(s) or weakness Allergic/Immunologic Allergic/Immunologic ED: Denies mouth swelling or urticaria EXAM Physical Exam Const Vital Signs: 09/12/22 16:13 09/12/22 16:12 09/12/22 16:15 Temperature 97.7 F L 97.7 F L Temperature Source Temporal Temporal Pulse Rate 113 H 108 H 97 Respiratory Rate 18 25 H 26 H Respiratory Effort Blood Pressure 107/84 H 134/60 H Blood Pressure Mean 91 84 Pulse Ox 96 96 96 Oxygen Delivery Method Room Air Room Air Room Air 09/12/22 16:25 09/12/22 17:15 09/12/22 18:00 Temperature 98.9 F 99.9 F H Temperature Source Temporal Oral Pulse Rate 101 H 99 Respiratory Rate 23 H 29 H Respiratory Effort Normal Non-Labored Blood Pressure 121/60 H 123/72 H Blood Pressure Mean 80 89 Pulse Ox 97 95 Oxygen Delivery Method Room Air Room Air 09/12/22 19:00 09/12/22 20:00 09/12/22 20:00 Temperature 99.2 F H 100.0 F H 100.0 F H Temperature Source Oral Oral Oral Pulse Rate 101 H 112 H 112 H Respiratory Rate 33 H 33 H 33 H Respiratory Effort Blood Pressure 124/67 H 123/67 H 123/67 H Blood Pressure Mean 86 85 85 Pulse Ox 92 95 95 Oxygen Delivery Method Room Air Room Air Room Air Positive well nourished, well developed and obese General Appearance ED: well developed Nutritional Appearance: obese HEENT Reports moist mucous membranes Neck supple and no JVD Resp normal respiratory effort Auscultation: diminished lung sounds diffuse Cardio Rate: tachycardic Rhythm: abnormal rhythm irregularly irregular GI normal to inspection, nondistended, normoactive bowel sounds and non-tender Palpation: soft Extremity normal to inspection General Extremety ED: Negative for edema or tenderness General Extremity: Negative for edema Neuro oriented x3, CN's II-XII intact bilaterally and no sensory deficits noted Sensorium / Orientation: alert Motor Exam: strength 5/5 throughout Psych mental status grossly normal Skin no rashes or lesions noted MDM MDM MDM Narrative Medical decision making narrative: Differential diagnosis includes congestive heart failure, pneumonia, pneumothorax, COPD exacerbation, fluid overload, cardiac dysrhythmia, cardiac ischemia, electrolyte abnormality, COVID-19 infection, and influenza infection. EKG will be obtained to assess for cardiac dysrhythmia and cardiac ischemia. Chest x-ray will be obtained to assess for pneumonia, pneumothorax, and congestive heart failure. CBC will be obtained to assess for leukocytosis and anemia. Basic metabolic profile will be obtained to assess for electrolyte abnormality and renal function. High-sensitivity troponin will be obtained to assess for cardiac ischemia. 2-hour repeat high-sensitivity troponin will be obtained to assess for ongoing cardiac ischemia. BNP will be obtained to assess for congestive heart failure. PT was INR and PTT will be obtained to assess for coagulopathy. Lactate will be obtained to assess for sepsis. Blood cultures will be obtained to assess for sepsis. COVID-19 rapid antigen will be obtained to assess for COVID-19 infection. Influenza A and influenza B antigens will be obtained to assess for influenza infection. History & Record Review Additional record(s) reviewed:: Prior labs Lab Data Attestation: I reviewed the patient's lab results. Lab results narrative: CBC was reviewed. There is a stable anemia with a hemoglobin of 9.1 and hematocrit of 28.2. PT with INR and PTT were reviewed. PT was 15.6 and INR is 1.2. Basic metabolic profile was reviewed. Creatinine was slightly elevated at 1.62 and BUN was 23. These are stable compared to previous results. Serum lactate was reviewed and was normal at 1.5. High-sensitivity troponin was reviewed and was normal at 15. 2-hour repeat high-sensitivity troponin was reviewed and was normal at 14. B natruretic peptide was reviewed and was elevated at 320.9. COVID-19 rapid antigen was reviewed and was negative. Influenza A and influenza B antigens were reviewed and were negative. Labs: Laboratory Results - last 24 hr 09/12/22 09/12/22 16:58 19:05 WBC 10.1 RBC 3.16 L Hgb 9.1 L Hct 28.2 L MCV 89.2 MCH 28.8 MCHC 32.3 RDW Std Deviation 44.6 H RDW Coeff of Alisson 13.6 Plt Count 318 MPV 9.0 Immature Gran % (Auto) 0.400 Neut % (Auto) 83.5 H Lymph % (Auto) 4.8 L [place] % (Auto) 11.0 H Eos % (Auto) 0.0 Baso % (Auto) 0.3 Absolute Neuts (auto) 8.4 H Absolute Lymphs (auto) 0.48 L Nucleated RBC % 0 Differential Comment SCANNED PT 15.6 H INR 1.2 APTT 35.2 Sodium 136 Potassium 3.9 Chloride 101 Carbon Dioxide 30.0 Anion Gap 5 BUN 23 H Creatinine 1.62 H Estim Creat Clear Calc 47.13 Est GFR (MDRD) Af Amer 55 L Est GFR (MDRD) Non-Af 45 L BUN/Creatinine Ratio 14.2 Glucose 178 H Lactic Acid 1.5 Calcium 8.0 L Troponin I High Sens 15 14 B-Natriuretic Peptide 320.9 H Radiography Chest X-Ray - ED: 1 View, Read by ED Physician, Read by Radiologist, Chronic Changes and Cardiomegaly Diagnostic Testing: Clinical Impression(s) from Imaging Studies Chest X-Ray 09/12/22 17:07 IMPRESSION: Left chest tube has been removed. Complex densities in the lower left hemithorax are stable. Electronically Signed: James Pulido MD at 17:43 EDT , Portable chest x-ray was obtained. There is 1 view. On my independent interpretation, there are chronic changes in the left lower lobe. There is no effusion. Bony thorax is normal. There is some cardiomegaly noted. Radiologist also interpreted the x-ray and agrees. EKG Initial EKG: Attestation: I personally reviewed and interpreted this EKG as follows: Interpretation: Atrial Fibrillation (109 with occasional PVCs) and Non- Specific ST Changes Comments: EKG was obtained. On my independent interpretation, it showed atrial fibrillation with a rate of 109. There are occasional PVCs noted. QRS interval was normal at 76. QTc interval was normal at 420 ms. [place] was normal. There are nonspecific ST-T wave changes noted. Prior EKG tracings: available for review Prior: Unchanged (08/19/2022) Treatment and Re-Evaluation :: Patient was given a dose of Lasix here. Patient ambulated to the bathroom and his pulse oximeter dropped to 86%. Patient was placed on oxygen. Patient was advised of his findings. Case will be discussed with the hospitalist for admission. Patient understood and was agreeable with the plan. All questions were answered. Discharge Plan Triage Chief Complaint: Shortness of Breath Other Complaint: Chest Pain ED Provider: Jerry Elise Dx/Rx/DC Orders Clinical Impression: Congestive heart failure, Atrial fibrillation, Hypoxia Prescriptions: No Action ferrous sulfate [FeroSul] 325 mg (65 mg iron) tablet 325 mg PO DAILY lisinopril 5 mg tablet 5 mg PO DAILY Hold Instructions: Hold for 1 week until kidney function, creatinine returns to baseline 1.70. cyanocobalamin (vitamin B-12) 2,500 mcg tablet 2,500 mcg PO DAILY Eliquis 5 mg tablet 5 mg PO BID Qty: 60 11RF insulin aspart U-100 [Novolog FlexPen U-100 Insulin] 100 unit/mL (3 mL) insulin pen 12 unit subcut TID Qty: 45 1RF Hold Instructions: not taking Trulicity 4.5 mg/0.5 mL pen injector 4.5 mg subcut FR Qty: 6 1RF spironolactone 25 mg tablet 25 mg PO DAILY Hold Instructions: Med change 02/20/21 furosemide 40 mg tablet 40 mg PO BID Qty: 60 12RF Hold Instructions: Hold for 1 week until kidney function, creatinine returns to baseline 1.70. metolazone 2.5 mg tablet 2.5 mg PO MOWEFR Qty: 30 6RF Hold Instructions: Hold for 1 week until kidney function, creatinine returns to baseline 1.70. levothyroxine 150 MCG tablet 150 mcg PO DAILY Patient Comments: thyroid atorvastatin 40 MG tablet 40 mg PO DAILY@1700 ipratropium-albuterol 3 ML solution for nebulization 3 ml inhalation Q6H Patient Comments: breathing acetaminophen 325 mg Tablet 650 mg PO DAILY PRN (Reason: Pain) omeprazole 20 mg capsule,delayed release(DR/EC) 20 mg PO DAILY Patient Comments: TAKE 1 CAPSULE BY MOUTH ONCE DAILY guaifenesin [Mucinex] 600 mg Tablet Extended Release 12hr 600 mg PO DAILY PRN (Reason: Congestion) budesonide [Pulmicort] 0.5 mg/2 mL Suspension For Nebulization 0.5 mg INHALATION BID potassium chloride 40 mEq/15 mL liquid 40 meq PO DAILY 10 Days Qty: 150 0RF Levemir FlexPen 100 unit/mL (3 mL) insulin pen 20 unit subcut QHS (DME) FreeStyle Zayra 2 Sensor Kit See Rx Instructions .ROUTE .MEDSUPPLY Qty: 2 6RF Rx Instructions: As directed diltiazem HCl 120 mg capsule,extended release 24hr 120 mg PO BID Qty: 180 3RF Rx Instructions: Hold for heart less than 60 or systolic blood pressure less than 100 mmHg. insulin lispro [Humalog KwikPen Insulin] 100 unit/mL insulin pen 12 unit subcut TID Qty: 36 1RF Hold Instructions: not taking Primary Care Provider: Chinmay Sin Referrals: Chinmay Sin MD [Primary Care Provider] - Disposition Disposition: Acute Care [facility]
--- NOTE | 2022-09-12 17:07 | RAD_ITS ---
STUDY: X-RAY CHEST REASON FOR EXAM: Male, 67 years old. Dyspnea TECHNIQUE: Single AP portable view of the chest. COMPARISON: 08/19/2022. FINDINGS: Since previous exam, there has been removal of left chest tube. No pneumothorax. Complex density seen of the lower left hemithorax consistent with pleural thickening/scarring, atelectasis and/or effusion and likely pleural parenchymal scarring. Normal right lung. There is moderate cardiac enlargement. Normal mediastinum and laura. Normal visualized pulmonary arteries. There is atherosclerotic calcification of the aortic arch with tortuosity. Normal visualized thoracic spine. Normal visualized ribs, clavicles, and shoulders. There is no demonstrated abnormality of the visualized soft tissue structures of the upper abdomen. RAD/Chest 1 View (Portable) IMPRESSION: Left chest tube has been removed. Complex densities in the lower left hemithorax are stable. Electronically Signed: James Pulido MD at 17:43 EDT ,
[2022-09-12 17:14] LABS: Absolute Lymphocyte Count 0.48 X10^3/uL (0.83-4.51); Absolute Neutrophil Count 8.4 X10^3/uL (2.0-7.7); Basophil# 0.03 X10^3/uL; Basophil% 0.3 % (0-1); Hematocrit 28.2 % (40-54); Hemoglobin 9.1 g/dL (13.0-16.5); Lymphocyte # 0.48 X10^3/ul (0.83-4.51); Lymphocyte % 4.8 % (19-41); Mean Corp Hgb Conc 32.3 g/dL (32-36); Mean Corpuscular Hgb 28.8 pg (27.0-32.0); Mean Corpuscular Volume 89.2 fL (80-94); Monocyte# 1.11 X10^3/uL; NRBC Flagged by Analyzer 0 % (0-5); Neutrophil # 8.42 X10^3/uL (2.7-7.7); Neutrophil % 83.5 % (47-70); POSITIVE DIFFERENTIAL YES; Platelet Count 318 K/mm3 (150-450); RBC Distribution Width CV 13.6 % (11.6-14.6); RBC Distribution Width SD 44.6 fl (35.1-43.9); Red Blood Count 3.16 M/mm3 (4.6-6.2); White Blood Count 10.1 K/mm3 (4.4-11.0)
[2022-09-12 17:23] LABS: International Normalized Ratio 1.2; Prothrombin Time (Protime)PT. 15.6 SECONDS (11.7-14.9)
[2022-09-12 17:24] LABS: Partial Thromboplast Time 35.2 Seconds (24.1-36.2)
[2022-09-12 17:25] LABS: Differential Indicated SCAN CRITERIA MET
[2022-09-12 17:34] LABS: Lactic Acid 1.5 mmol/L (0.4-1.9)
[2022-09-12 17:55] LABS: Differential Comment SCANNED
[2022-09-12 18:00] LABS: Anion Gap 5 (5-15); BUN 23 mg/dL (7-18); BUN/Creat Ratio 14.2 RATIO (10-20); Chloride 101 mmol/L (98-107); Creatinine, Serum 1.62 mg/dL (0.70-1.30); EST Glomerular Filtration Rate 45 mL/min (>60); Est Glom Filt Rate - Afr Amer 55 mL/min (>60); Estimated Creatinine Clearance 47.13 ml/min; Glucose 178 mg/dL (74-106); Potassium 3.9 mmol/L (3.5-5.1); Sodium Level 136 mmol/L (136-145); Troponin-I HS (w/2H Reflex) 15 pg/mL (3.0-78.0)
[2022-09-12 18:19] LABS: BNP,B-Type NATRIURETIC PEPTIDE 320.9 pg/mL (0-100)
[2022-09-12] MEDS: Furosemide 40 MG/4 ML Vial IV (18:41)
[2022-09-12 19:05] LABS: Reflex Troponin-HS? (from REC) Y
[2022-09-12 19:28] LABS: Troponin-I HS 14 pg/mL (3.0-78.0)
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
--- NOTE | 2022-09-12 21:29 | ECHOD_ITS ---
Reason For Study: CHF Procedure This was a 2D Doppler, Color Flow transthoracic echocardiogram. Technically difficult study due to patient coughing. Patient scanned supine. Definity decline due to pain in apical window area due to recent surgery. Exam performed portable in patient room. Left Ventricle Normal LV size. The estimated ejection fraction is 65 %. No evidence for diastolic dysfunction. No regional wall motion abnormalities noted. Right Ventricle Normal RV size. Normal systolic function. Atria The left atrium is moderately enlarged. The right atrium is mildly enlarged. No doppler evidence for ASD. Mitral Valve There is no mitral valve stenosis. No mitral valve insufficiency. Tricuspid Valve There is no tricuspid stenosis. Unable to estimate RV systolic pressure due to inadequate jet, pulmonary artery pressure probably normal. Aortic Valve Trisinus/trileaflet aortic valve. There is no aortic stenosis. No aortic valve insufficiency. Pulmonic Valve There is no pulmonic valvular stenosis. No pulmonic valve insufficiency. Great Vessels Normal aortic root. Pericardium/Pleural No pericardial effusion. MMode/2D Measurements & Calculations LVOT diam: 2.2 cm Ao root diam: 3.3 cm LAV(MOD-bp): 51.8 ml LVOT area: 3.7 cm2 LAV(MOD-bp) Indexed: 21.4 ml/m2 LAV(MOD-sp2): 51.0 ml LAV(MOD-sp4): 52.8 ml LA dimension(2D): 5.1 cm LA A4 area: 19.9 cm2 RA A4 area: 20.1 cm2 Doppler Measurements & Calculations MV E max myron: 95.2 cm/sec MV V2 max: 117.1 cm/sec Ao V2 max: 96.2 cm/sec MV max P.5 mmHg Ao max P.7 mmHg MV V2 mean: 64.4 cm/sec Ao V2 mean: 66.0 cm/sec MV mean P.1 mmHg Ao mean P.9 mmHg MV V2 VTI: 26.2 cm Ao V2 VTI: 21.0 cm MVA(VTI): 3.3 cm2 AV (velocity ratio): 1.1 REESE(I,D): 4.2 cm2 REESE(V,D): 4.3 cm2 LV V1 max: 111.2 cm/sec SV(LVOT): 87.0 ml LV V1 max P.0 mmHg LV V1 mean P.7 mmHg LV V1 mean: 74.6 cm/sec LV V1 VTI: 23.6 cm ECHO/Echo Complete Interpretation Summary The estimated ejection fraction is 65 %. No evidence for diastolic dysfunction. The right atrium is mildly enlarged. The left atrium is moderately enlarged. Ordering Physician: Eunice Melgar Referring Physician: REBECCA PEREZ Performed By: Marybel Valdivia RCS
[2022-09-12] MEDS: Ipratropium/Albuterol Sulfate 3 ML AMPUL.NEB INHALATION (22:45)
[2022-09-12 22:59] LABS: Magnesium 1.6 mg/dL (1.6-2.6)
[2022-09-12 23:13] LABS: Procalcitonin 0.15 ng/mL (0.00-0.09)
[2022-09-12 23:14] LABS: Troponin-I HS 17 pg/mL (3.0-78.0)
[2022-09-12 23:20] LABS: Bedside Glucose 130 mg/dL (74-106)
[2022-09-12] MEDS: APIXABAN 5 MG TABLET PO (23:31)
[2022-09-12] MEDS: Insulin Glargine-YFGN 100 UNIT/ML Pen 20 UNIT SC (23:31)
[2022-09-12] MEDS: dilTIAZem CD 120 MG Capsule PO (23:31)
--- NOTE | 2022-09-12 23:31 | PCM.RX.CS ---
Consult Antibiotic Management Pharmacy has been consulted to manage selected antiobiotic: Vancomycin Type of Intervention Type of Consult: New start Suspected Infection Suspected Infection: Pneumonia Labs Labs: Sodium 136 mmol/L (136-145) 09/12/22 16:58 Potassium 3.9 mmol/L (3.5-5.1) 09/12/22 16:58 Chloride 101 mmol/L (98-107) 09/12/22 16:58 Carbon Dioxide 30.0 mmol/L (21.0-32.0) 09/12/22 16:58 Anion Gap 5 (5-15) 09/12/22 16:58 BUN 23 mg/dL (7-18) H 09/12/22 16:58 Creatinine 1.62 mg/dL (0.70-1.30) H 09/12/22 16:58 Est GFR (MDRD) Af Amer 55 mL/min (>60) L 09/12/22 16:58 Est GFR (MDRD) Non-Af 45 mL/min (>60) L 09/12/22 16:58 BUN/Creatinine Ratio 14.2 RATIO (10-20) 09/12/22 16:58 Glucose 178 mg/dL (74-106) H 09/12/22 16:58 Dosing Weight Weight used for dosin.5 kg Estimated Creatinine Clearance Estimated Creatinine Clearance: 59.7 Goal Trough Goal Trough: 15-20 mcg/mL Pharmacy Plan for Drug Dosing Pharmacy Plan for Drug Dosing: Pharmacy Service will continue to monitor and adjust dosing as required. Follow-Up Labs Follow-Up Labs: Trough: Vancomycin Date/Time Labs Ordered Labs to be done on [date and time ordered]: 09/14/22 @1037
[2022-09-13] VITALS (13 sets, daily range): BP systolic 96–122; BP diastolic 64–75; PULSE 80–104; RESP 18–24; TEMP 36.7–36.9; O2SAT 94–100; BMI 38.5
[2022-09-13 02:16] LABS: M R Staph aureus DNA By PCR Negative (Negative); Probe Check PASS; Specimen Processing Control PASS
[2022-09-13] MEDS: Acetaminophen 325 MG Tablet 650 MG PO ×2 (03:28→21:24)
[2022-09-13] MEDS: Ipratropium/Albuterol Sulfate 3 ML AMPUL.NEB INHALATION ×5 (03:40→19:22)
--- NOTE | 2022-09-13 05:55 | RAD_ITS ---
EXAM: XR CHEST, 1 VIEW CLINICAL INDICATION: Dyspnea, cough Dyspnea, cough TECHNIQUE: Frontal view of the chest. COMPARISON: X-ray chest 09/12/2022. 03/13/2022. 02/21/2022 01/12/2022. FINDINGS: LUNGS AND PLEURAL SPACES: There is a persistent increased density overlying the peripheral left lower lung field consistent with loculated pleural effusion and/or pleural thickening. There is also atelectasis or infiltration in the left lower lung field. There is no significant interval change. No pneumothorax. HEART: The heart is enlarged. MEDIASTINUM: Central airways and mediastinal contour are unremarkable. BONES/JOINTS: Unremarkable. SOFT TISSUES: Unremarkable. VASCULATURE: There is atherosclerotic calcification of the aortic arch. TUBES, LINES AND DEVICES: There is a tracheostomy tube in place. RAD/Chest 1 View (Portable) IMPRESSION: 1. Persistent loculated left pleural effusion or pleural thickening with overlying atelectasis or infiltration the left lower lung field. No significant interval change. 2. Cardiomegaly. 3. Tracheostomy tube in place. Electronically Signed: Johnnie Carrillo MD at 6:33 EDT ,
[2022-09-13] MEDS: Levothyroxine 150 MCG Tablet PO (06:11)
[2022-09-13 06:28] LABS: Absolute Lymphocyte Count 0.54 X10^3/uL (0.83-4.51); Absolute Neutrophil Count 5.3 X10^3/uL (2.0-7.7); Basophil# 0.03 X10^3/uL; Basophil% 0.4 % (0-1); Eosinophil# 0.01 X10^3/uL; Eosinophils% 0.1 % (0-5); Hematocrit 24.5 % (40-54); Hemoglobin 7.6 g/dL (13.0-16.5); Lymphocyte # 0.54 X10^3/ul (0.83-4.51); Lymphocyte % 7.7 % (19-41); Mean Corpuscular Hgb 27.8 pg (27.0-32.0); Mean Corpuscular Volume 89.7 fL (80-94); Mean Platelet Vol. 9.4 fl (6.2-12.0); Monocyte% 15.6 % (0-10); NRBC Flagged by Analyzer 0 % (0-5); Neutrophil # 5.34 X10^3/uL (2.7-7.7); Neutrophil % 75.8 % (47-70); POSITIVE DIFFERENTIAL YES; Platelet Count 289 K/mm3 (150-450); RBC Distribution Width CV 13.5 % (11.6-14.6); RBC Distribution Width SD 44.5 fl (35.1-43.9); Red Blood Count 2.73 M/mm3 (4.6-6.2); White Blood Count 7.1 K/mm3 (4.4-11.0)
[2022-09-13 06:35] LABS: Bedside Glucose 126 mg/dL (74-106)
[2022-09-13 06:42] LABS: Differential Indicated SCAN CRITERIA MET
--- NOTE | 2022-09-13 07:20 | PCM.PN.HOSP ---
Reason for Visit Reason for Visit: Diagnoses Heart failure, unspecified (09/12/22) Subjective Subjective Patient is a 67-year-old gentleman with multiple comorbidities admitted with shortness of breath and assessment of congestive heart failure made admitted to a monitored bed for subsequent management Objective Data Objective Data Vital Signs: Vital Signs Temp Pulse Resp BP Pulse Ox O2 Del Method O2 Flow Rate 98.4 F 94 20 H 118/75 94 Trach Collar 8 09/13/22 03:22 09/13/22 03:40 09/13/22 03:40 09/13/22 03:22 09/13/22 03:40 09/13/22 03:40 09/13/22 03:22 FiO2 30 09/13/22 03:40 Oxygen Flow Rate (L/min) 8 Oxygen Delivery Method Trach Collar Weight: 125.5 kg Body Mass Index (BMI) 38.5 Intake & Output: Intake and Output for Last 24 Hours 09/11/22 09/12/22 09/13/22 23:59 23:59 23:59 Intake Total 200 / 200 740 / 740 Balance 200 / 200 740 / 740 Lab / Micro Data 09/13/22 05:48 09/13/22 05:48 Labs: Laboratory Results - last 24 hr 09/12/22 16:58: WBC 10.1, RBC 3.16 L, Hgb 9.1 L, Hct 28.2 L, MCV 89.2, MCH 28.8, MCHC 32.3, RDW Std Deviation 44.6 H, RDW Coeff of Alisson 13.6, Plt Count 318, MPV 9.0, Immature Gran % (Auto) 0.400, Neut % (Auto) 83.5 H, Lymph % (Auto) 4.8 L, Burleigh % (Auto) 11.0 H, Eos % (Auto) 0.0, Baso % (Auto) 0.3, Absolute Neuts (auto) 8.4 H, Absolute Lymphs (auto) 0.48 L, Nucleated RBC % 0, Differential Comment SCANNED, PT 15.6 H, INR 1.2, APTT 35.2, Sodium 136, Potassium 3.9, Chloride 101, Carbon Dioxide 30.0, Anion Gap 5, BUN 23 H, Creatinine 1.62 H, Estim Creat Clear Calc 47.13, Est GFR (MDRD) Af Amer 55 L, Est GFR (MDRD) Non-Af 45 L, BUN/Creatinine Ratio 14.2, Glucose 178 H, Lactic Acid 1.5, Calcium 8.0 L, Troponin I High Sens 15, B-Natriuretic Peptide 320.9 H 09/12/22 19:05: Troponin I High Sens 14 09/12/22 22:42: Magnesium 1.6, Troponin I High Sens 17, Procalcitonin 0.15 H 09/12/22 22:49: POC Glucose 130 H 09/12/22 23:25: MRSA (PCR) Negative 09/13/22 05:48: WBC 7.1, RBC 2.73 L, Hgb 7.6 L, Hct 24.5 L, MCV 89.7, MCH 27.8, MCHC 31.0 L, RDW Std Deviation 44.5 H, RDW Coeff of Alisson 13.5, Plt Count 289, MPV 9.4, Immature Gran % (Auto) 0.400, Neut % (Auto) 75.8 H, Lymph % (Auto) 7.7 L, Burleigh % (Auto) 15.6 H, Eos % (Auto) 0.1, Baso % (Auto) 0.4, Absolute Neuts (auto) 5.3, Absolute Lymphs (auto) 0.54 L, Nucleated RBC % 0 09/13/22 06:09: POC Glucose 126 H Micro: Microbiology 09/12/22 16:50 Nasal Secretion SARS-CoV-2 & FLU Antigen (Rapid) - Final 09/12/22 22:40 Urine, Clean Catch Streptococcus pneumoniae Antigen (M - Final 09/12/22 22:40 Urine, Clean Catch Legionella Antigen - Final Radiography Diagnostic Testing: Radiology Impression Chest X-Ray 09/12/22 17:07 IMPRESSION: Left chest tube has been removed. Complex densities in the lower left hemithorax are stable. Electronically Signed: James Pulido MD at 17:43 EDT , Chest X-Ray 09/13/22 05:55 IMPRESSION: 1. Persistent loculated left pleural effusion or pleural thickening with overlying atelectasis or infiltration the left lower lung field. No significant interval change. 2. Cardiomegaly. 3. Tracheostomy tube in place. Electronically Signed: Johnnie Carrillo MD at 6:33 EDT Reading Location ID and State: [facility] / [place] , Service support , Physical Exam Narrative GENERAL: cooperative HEENT: Atraumatic; normocephalic EYES; Anicteric, Normal Conjunctiva NECK; tracheostomy in place RESPIRATORY: Diminished to auscultation CARDIOVASCULAR: Regular S1 S2, GI: soft, normoactive bowel sounds, : No Renal angle tenderness; EXTREMITIES: No edema, no clubbing, MUSCULOSKELETAL: no muscle wasting NEURO: Awake; no lateralizing signs. SKIN: No Rash PSYCH; Flat affect Assessment & Plan Assessment/Plan (1) CHF exacerbation: QUALIFIERS: Heart failure type: diastolic Qualified Code(s): I50.33 - Acute on chronic diastolic (congestive) heart failure PLAN: Plan Patient is a 67-year-old gentleman with multiple comorbidities admitted with shortness of breath and assessment of congestive heart failure made admitted to a monitored bed for subsequent management 1. Acute on chronic congestive heart failure with preserved ejection fraction ? Admitted to monitored bed managed with diuretics, strict input and output, daily weight fluid restriction as well as supplemental oxygen. Patient last echo was on 10/24/2021 did demonstrate EF of 55% repeat echo ordered for subsequent assessment 2. Recurrent left-sided pleural effusion ? Possibly related to patient congestive heart failure,. Patient apparently had a malfunction left tunneled Pleurx catheter which was removed at [facility] during her recent hospitalization. Patient was discharged from [place] on 09/11/2022 3. History of laryngeal carcinoma ? Status post laryngectomy with subsequent tracheostomy in 2007, patient has since remained in remission 4. Class III obesity with BMI 38.6 ? Complicating care, weight loss advised 5. Hypothyroidism - Patient is on levothyroxine home dose continued 6. Hypertension - Blood pressure controlled, home medications continued with dose adjustment as needed 7. Diabetes mellitus type II -patient's oral hypoglycemics held. Placed on long acting insulin, Accu-Cheks a.c. and at bedtime and covered with sliding scale insulin 8. Anemia - Secondary to chronic disorder monitoring H&H and transfuse if patient becomes symptomatic or hemoglobin falls below 7 9. Chronic kidney disease stage III ? Kidney function at baseline 10. Chronic hypoxic respiratory failure ? Secondary to COPD as well as obesity hypoventilation syndrome and his underlying congestive heart failure. Patient is on baseline home oxygen 2 to 4 L 11. Paroxysmal A. fib ? Rate controlled.Patient is on apixaban for stroke prophylaxis 12. Physical deconditioning - Requested for PT OT eval and social studies department chair to assist with discharge planning 14.DVT prophylaxis ? Apixaban Time spent in the patient's overall evaluation,decision-making process, review of diagnostic data, adjustment of management, discussion with other providers, nursing nursing and ancillary staff involved in patient's care documentation, 50 Minutes Charges/Coding Visit Charges Inpatient E&M: 73036 [facility] Hosp L3
[2022-09-13 07:48] LABS: ALB/GLOB Ratio 0.6 RATIO (0.9-2.4); AST(SGOT) 9 U/L (15-37); Alanine Aminotransfer ALT/SGPT 8 U/L (16-61); Albumin, Serum 2.3 g/dL (3.2-5.0); Alkaline Phosphatase 99 U/L (45-117); Anion Gap 8 (5-15); BUN 24 mg/dL (7-18); BUN/Creat Ratio 17.8 RATIO (10-20); Calcium,Total 7.9 mg/dL (8.5-10.1); Chloride 101 mmol/L (98-107); Cholesterol 65 mg/dL (200); Creatinine, Serum 1.35 mg/dL (0.70-1.30); EST Glomerular Filtration Rate 56 mL/min (>60); Est Glom Filt Rate - Afr Amer 68 mL/min (>60); Estimated Creatinine Clearance 56.55 ml/min; Globulin 4.1 g/dL (2.2-4.2); Glucose 131 mg/dL (74-106); High Density Lipoprotein 33 mg/dL; Potassium 3.5 mmol/L (3.5-5.1); Protein, Total 6.4 g/dL (6.4-8.2); Sodium Level 136 mmol/L (136-145); T4 Free Direct 1.42 ng/dL (0.76-1.46); Thyroid Stim Hormone (TSH) 0.78 uIU/mL (0.358-3.74); Triglycerides 42 mg/dL; Very Low Density Lipoprotein 8 mg/dL (5-40)
--- NOTE | 2022-09-13 08:04 | PCM.RX.CS ---
Consult Antibiotic Management Pharmacy has been consulted to manage selected antiobiotic: Vancomycin Type of Intervention Type of Consult: Follow-up Suspected Infection Suspected Infection: Pneumonia Prior Doses of Antibiotics Prior Doses of Antibiotics Received/Current Regimen: Vancomycin 2000 mg on 09/12/22 @ 2256 Labs Labs: Sodium 136 mmol/L (136-145) 09/13/22 05:48 Potassium 3.5 mmol/L (3.5-5.1) 09/13/22 05:48 Chloride 101 mmol/L (98-107) 09/13/22 05:48 Carbon Dioxide 27.0 mmol/L (21.0-32.0) 09/13/22 05:48 Anion Gap 8 (5-15) 09/13/22 05:48 BUN 24 mg/dL (7-18) H 09/13/22 05:48 Creatinine 1.35 mg/dL (0.70-1.30) H 09/13/22 05:48 Est GFR (MDRD) Af Amer 68 mL/min (>60) 09/13/22 05:48 Est GFR (MDRD) Non-Af 56 mL/min (>60) L 09/13/22 05:48 BUN/Creatinine Ratio 17.8 RATIO (10-20) 09/13/22 05:48 Glucose 131 mg/dL (74-106) H 09/13/22 05:48 Microbiology Microbiology: Microbiology 09/12/22 23:10 Mucosa - Nasopharyngeal Respiratory Panel (PCR) - Final 09/12/22 16:50 Nasal Secretion SARS-CoV-2 & FLU Antigen (Rapid) - Final 09/12/22 22:40 Urine, Clean Catch Streptococcus pneumoniae Antigen (M - Final 09/12/22 22:40 Urine, Clean Catch Legionella Antigen - Final Dosing Weight Weight used for dosin.5 kg Estimated Creatinine Clearance Estimated Creatinine Clearance: 71.7 Goal Trough Goal Trough: 15-20 mcg/mL Pharmacy Plan for Drug Dosing Pharmacy Plan for Drug Dosing: The patient had an improvement in renal function with Scr decreasing from 1.62 to 1.35, therefore will increase maintenance dose from 1250 mg Q12H to 1750 mg Q12H, first dose this AM. Pharmacy Service will continue to monitor and adjust dosing as required. Follow-Up Labs Follow-Up Labs: Trough: Vancomycin Date/Time Labs Ordered Labs to be done on [date and time ordered]: 09/14/22 @ 8566
[2022-09-13] MEDS: Potassium Chloride Oral Soln 20 MEQ/15 ML UDC 40 MEQ PO (08:26)
[2022-09-13] MEDS: Aspirin E.C. 81 MG Tablet PO (08:26)
[2022-09-13] MEDS: Furosemide 40 MG/4 ML Vial IV ×2 (10:14→18:13)
[2022-09-13] MEDS: dilTIAZem CD 120 MG Capsule PO ×2 (10:14→21:24)
[2022-09-13] MEDS: Lisinopril 5 MG Tablet PO (10:15)
[2022-09-13] MEDS: Pantoprazole Sodium 20 MG Tablet PO (10:15)
[2022-09-13] MEDS: Metolazone 2.5 MG Tablet PO (10:15)
[2022-09-13] MEDS: APIXABAN 5 MG TABLET PO ×2 (10:15→21:24)
[2022-09-13] MEDS: 0.9% Saline Lock 10 ML Syringe IV ×3 (10:17→23:24)
--- NOTE | 2022-09-13 10:55 | CASEMGMT ---
RN TALA Face to Face with patient for initial transition planning/care coordination assessment. RN CM introduced self and role at [facility]. Patient lying in bed, alert and oriented. Patient willing to participate in assessment and is able to answer all questions appropriately. Care providers, pharmacy, and demographics verified. Patient wishes to discharge home, denies need for home health at this time. Patient states he has no further needs or concerns at this time. CM to follow for discharge planning needs that may arise. PCP: January Specialists: none Preferred Pharmacy: [facility] Insurance: [facility] Prescription Benefit: yes Living Will/HPOA: yes, Manuela Chow LNOK: , son Living Arrangements: Isela lives with and son in a single story home with 4 steps and railing to enter the home. Patient states he is independent at home. Transportation: self, DME/HHC: Patient has raised toilet, cane, walker, nebuilzer, pulse ox, trach supplies, suction machine, and [facility] Patient knows to have family bring portable tank at discharge. Patient denies previous HHC or SNF. Disposition Plan: Patient to discharge home with family support and follow-up plans in place. Hanna DURHAM, RN, CM
[2022-09-13] MEDS: Insulin Lispro 100 UNIT/ML INSULN.PEN SC ×2 (11:40→16:08)
[2022-09-13] MEDS: Ferrous Sulfate 325 MG Tablet PO (11:41)
[2022-09-13] MEDS: Atorvastatin Calcium 40 MG Tablet PO (16:08)
[2022-09-13 16:42] LABS: Bedside Glucose 170 mg/dL (74-106)
[2022-09-13 21:05] LABS: Bedside Glucose 228 mg/dL (74-106)
[2022-09-13] MEDS: Insulin Glargine-YFGN 100 UNIT/ML Pen 20 UNIT SC (21:25)
[2022-09-13 21:56] LABS: Bedside Glucose 167 mg/dL (74-106)
[2022-09-14] VITALS (14 sets, daily range): BP systolic 106–117; BP diastolic 62–72; PULSE 73–95; RESP 18–24; TEMP 36.1–36.9; O2SAT 93–100; BMI 39.6
[2022-09-14] MEDS: Acetaminophen 325 MG Tablet 650 MG PO ×2 (04:03→21:33)
[2022-09-14] MEDS: Albuterol 2.5 MG/3 ML VIAL.NEB. INHALATION (04:30)
[2022-09-14] MEDS: Levothyroxine 150 MCG Tablet PO (06:31)
[2022-09-14 06:51] LABS: Bedside Glucose 133 mg/dL (74-106)
[2022-09-14] MEDS: Ipratropium/Albuterol Sulfate 3 ML AMPUL.NEB INHALATION ×4 (07:03→19:32)
[2022-09-14] MEDS: dilTIAZem CD 120 MG Capsule PO ×2 (10:04→21:31)
[2022-09-14] MEDS: Lisinopril 5 MG Tablet PO (10:04)
[2022-09-14] MEDS: Pantoprazole Sodium 20 MG Tablet PO (10:04)
[2022-09-14] MEDS: Aspirin E.C. 81 MG Tablet PO (10:04)
[2022-09-14] MEDS: Furosemide 40 MG/4 ML Vial IV ×2 (10:05→17:44)
[2022-09-14] MEDS: Potassium Chloride Oral Soln 20 MEQ/15 ML UDC 40 MEQ PO (10:06)
[2022-09-14] MEDS: APIXABAN 5 MG TABLET PO ×2 (10:06→21:31)
[2022-09-14] MEDS: 0.9% Saline Lock 10 ML Syringe IV ×2 (10:11→17:44)
--- NOTE | 2022-09-14 10:55 | PCM.PN.HOSP ---
Reason for Visit Reason for Visit: Diagnoses Acute on chronic diastolic (congestive) heart failure (09/12/22) Heart failure, unspecified (09/12/22) Subjective Subjective Follow-up for acute on chronic hypoxic and hypercarbic respiratory failure. Objective Data Objective Data Vital Signs: Vital Signs Temp Pulse Resp BP Pulse Ox O2 Del Method O2 Flow Rate 97.0 F L 80 18 106/69 100 Trach Collar 10 09/14/22 10:00 09/14/22 10:00 09/14/22 10:00 09/14/22 10:00 09/14/22 10:00 09/14/22 10:00 09/14/22 10:00 FiO2 40 09/14/22 10:00 Oxygen Flow Rate (L/min) 10 Oxygen Delivery Method Trach Collar Weight: 283 lb 15.286 oz Body Mass Index (BMI) 39.6 Intake & Output: Intake and Output for Last 24 Hours 09/12/22 09/13/22 09/14/22 23:59 23:59 23:59 Intake Total 200 / 200 2025 / 2025 585 / 585 Output Total 1000 / 1000 300 / 300 Balance 200 / 200 1025 / 1025 285 / 285 Lab / Micro Data 09/13/22 05:48 09/13/22 05:48 Labs: Laboratory Results - last 24 hr 09/13/22 11:35: POC Glucose 228 H 09/13/22 16:07: POC Glucose 170 H 09/13/22 21:19: POC Glucose 167 H 09/14/22 06:30: POC Glucose 133 H Micro: Microbiology 09/12/22 23:05 Sputum, Tracheal Aspirate Gram Stain - Final 09/12/22 23:05 Sputum, Tracheal Aspirate Respiratory Culture - Preliminary GNR Poss Pseudomonas sp Gram negative ady Gram negative ady#2 09/12/22 23:10 Mucosa - Nasopharyngeal Respiratory Panel (PCR) - Final 09/12/22 16:50 Nasal Secretion SARS-CoV-2 & FLU Antigen (Rapid) - Final 09/12/22 22:40 Urine, Clean Catch Streptococcus pneumoniae Antigen (M - Final 09/12/22 22:40 Urine, Clean Catch Legionella Antigen - Final Radiography Diagnostic Testing: Radiology Impression Echocardiogram 09/12/22 21:29 Interpretation Summary The estimated ejection fraction is 65 %. No evidence for diastolic dysfunction. The right atrium is mildly enlarged. The left atrium is moderately enlarged. Ordering Physician: Eunice Melgar Referring Physician: REBECCA PEREZ Performed By: Marybel Valdivia RCS Physical Exam Narrative Seen and examined. Patient on 10 L of oxygen. Usually on 4 L of home oxygen. Has tracheostomy with trach collar. Last night he got very short of breath/dyspnea probably due to mucous plugging that required multiple suction. General: Alert, Oriented x3, Cooperative, morbid obesity BMI 39.6 KG per square meter. HEENT: Atraumatic, PERRLA, EOMI, Normocephalic Oral: Oral mucosa dry. No Gingival or Mucosal Lesions/ Ulcerations Neck: Tracheostomy with trach collar, purulent secretions. Supple, No JVD, Negative Carotid Bruits Lungs: Air entry diminished in bilateral lung bases. No crepitation/rhonchi Cardiovascular: Regular rate, Regular Rhythm, Normal S1, Normal S2, systolic murmur LLSB Abdomen: Bowel Sounds Present, Soft, Non Tender, Non-Distended : No renal angle tenderness. No suprapubic tenderness. Extremities: Bilateral 3+ edema above the knee level, Capillary Refill Less than 3 Seconds Skin: No rashes, No breakdown Musculoskeletal: ROM restricted. Bilateral knee and hip joints arthritis. No Tenderness to Palpation of Joints or Extremities Neurological: Cranial nerves II-XII grossly intact, DTR 2+/4. No acute focal neurological deficit. Psych/Mental Status: Normal Affect, Appropriate. Assessment & Plan Assessment/Plan (1) CHF exacerbation: QUALIFIERS: Heart failure type: diastolic Qualified Code(s): I50.33 - Acute on chronic diastolic (congestive) heart failure PLAN: Plan Patient is a 67-year-old gentleman with multiple comorbidities admitted with shortness of breath and assessment of congestive heart failure made admitted to a monitored bed for subsequent management 1. Acute on chronic congestive heart failure with preserved ejection fraction ? Admitted to monitored bed managed with diuretics, strict input and output, daily weight fluid restriction as well as supplemental oxygen. Patient last echo was on 10/24/2021 did demonstrate EF of 55% repeat echo ordered for subsequent assessment 09/14: Patient had echo on 09/12/2022 which showed EF 65%, RA mildly enlarged LA moderately enlarged suggestive of HFpEF. Chest x-ray UA shows loculated left pleural effusion and pleural thickening with underlying atelectasis. 2. Recurrent left-sided pleural effusion ? Possibly related to patient congestive heart failure,. Patient apparently had a malfunction left tunneled Pleurx catheter which was removed at [facility] during his recent hospitalization. Patient was discharged from [place] on 09/11/2022. 3. History of laryngeal carcinoma ? Status post laryngectomy with subsequent tracheostomy in 2007, patient has since remained in remission 4. Class III obesity with BMI 38.6 ? Complicating care, weight loss advised 5. Hypothyroidism - Patient is on levothyroxine home dose continued 6. Hypertension - Blood pressure controlled, home medications continued with dose adjustment as needed 7. Diabetes mellitus type II -patient's oral hypoglycemics held. Placed on long acting insulin, Accu-Cheks a.c. and at bedtime and covered with sliding scale insulin 8. Anemia - Secondary to chronic disorder monitoring H&H and transfuse if patient becomes symptomatic or hemoglobin falls below 7 9. Chronic kidney disease stage IIIa 09/14: Patient admitted with creatinine 1.6 to improved to 1.35. 10. Chronic hypoxic and hypercarbic respiratory failure ? Secondary to COPD as well as obesity hypoventilation syndrome and his underlying congestive heart failure. On 4 L of home oxygen 11. Paroxysmal A. fib ? Rate controlled.Patient is on apixaban for stroke prophylaxis 12. Physical deconditioning - Requested for PT OT eval and social media sr strategy manager to assist with discharge planning 14.DVT prophylaxis ? Apixaban Time spent in the patient's overall evaluation,decision-making process, review of diagnostic data, adjustment of management, discussion with other providers, nursing nursing and ancillary staff involved in patient's care documentation, 45 minutes Clinical Impression(s) from Imaging Studies Chest X-Ray 09/12/22 17:07 IMPRESSION: Left chest tube has been removed. Echocardiogram 09/12/22 21:29 Interpretation Summary The estimated ejection fraction is 65 %. No evidence for diastolic dysfunction. The right atrium is mildly enlarged. The left atrium is moderately enlarged. Chest X-Ray 09/13/22 05:55 IMPRESSION: 1. Persistent loculated left pleural effusion or pleural thickening with overlying atelectasis or infiltration the left lower lung field. No significant interval change. 2. Cardiomegaly. 3. Tracheostomy tube in place. Charges/Coding Visit Charges Inpatient E&M: 96356 Subs Hosp L2
[2022-09-14 11:12] LABS: Vancomycin, Trough Level 29.9 ug/mL (5.0-15.0)
[2022-09-14 11:15] LABS: Bedside Glucose 184 mg/dL (74-106)
[2022-09-14] MEDS: Insulin Lispro 100 UNIT/ML INSULN.PEN SC ×2 (11:34→21:32)
[2022-09-14] MEDS: Ferrous Sulfate 325 MG Tablet PO (11:35)
--- NOTE | 2022-09-14 11:36 | PCM.RX.CS ---
Consult Antibiotic Management Pharmacy has been consulted to manage selected antiobiotic: Vancomycin Type of Intervention Type of Consult: Follow-up Suspected Infection Suspected Infection: Pneumonia Prior Doses of Antibiotics Prior Doses of Antibiotics Received/Current Regimen: Current order is 1750mg iv q12h. Labs Labs: Sodium 136 mmol/L (136-145) 09/13/22 05:48 Potassium 3.5 mmol/L (3.5-5.1) 09/13/22 05:48 Chloride 101 mmol/L (98-107) 09/13/22 05:48 Carbon Dioxide 27.0 mmol/L (21.0-32.0) 09/13/22 05:48 Anion Gap 8 (5-15) 09/13/22 05:48 BUN 24 mg/dL (7-18) H 09/13/22 05:48 Creatinine 1.35 mg/dL (0.70-1.30) H 09/13/22 05:48 Est GFR (MDRD) Af Amer 68 mL/min (>60) 09/13/22 05:48 Est GFR (MDRD) Non-Af 56 mL/min (>60) L 09/13/22 05:48 BUN/Creatinine Ratio 17.8 RATIO (10-20) 09/13/22 05:48 Glucose 131 mg/dL (74-106) H 09/13/22 05:48 Vancomycin Trough 29.9 ug/mL (5.0-15.0) H 09/14/22 10:20 Microbiology Microbiology: Microbiology 09/12/22 23:05 Sputum, Tracheal Aspirate Gram Stain - Final 09/12/22 23:05 Sputum, Tracheal Aspirate Respiratory Culture - Preliminary GNR Poss Pseudomonas sp Gram negative ady Gram negative ady#2 09/12/22 23:10 Mucosa - Nasopharyngeal Respiratory Panel (PCR) - Final 09/12/22 16:50 Nasal Secretion SARS-CoV-2 & FLU Antigen (Rapid) - Final 09/12/22 22:40 Urine, Clean Catch Streptococcus pneumoniae Antigen (M - Final 09/12/22 22:40 Urine, Clean Catch Legionella Antigen - Final Dosing Weight Weight used for dosin.8 kg Estimated Creatinine Clearance Estimated Creatinine Clearance: 72ml/min Goal Trough Goal Trough: 15-20 mcg/mL Pharmacy Plan for Drug Dosing Pharmacy Plan for Drug Dosing: Trough today was elevated at 29.9. No change in renal.. No further dosing to be done at this time. Will get a random level in AM and determine new dosing schedule when level <20. Pharmacy Service will continue to monitor and adjust dosing as required. Follow-Up Labs Follow-Up Labs: Trough: Other (random level 8.11 @0600)
[2022-09-14 16:41] LABS: Bedside Glucose 108 mg/dL (74-106)
[2022-09-14] MEDS: Atorvastatin Calcium 40 MG Tablet PO (17:44)
[2022-09-14] MEDS: Insulin Glargine-YFGN 100 UNIT/ML Pen 20 UNIT SC (21:31)
[2022-09-14 21:56] LABS: Bedside Glucose 179 mg/dL (74-106)
[2022-09-15] VITALS (13 sets, daily range): BP systolic 91–123; BP diastolic 40–64; PULSE 82–98; RESP 18–26; TEMP 36.6–37.4; O2SAT 96–100; BMI 40.2
[2022-09-15] MEDS: Ipratropium/Albuterol Sulfate 3 ML AMPUL.NEB INHALATION ×5 (01:07→19:39)
[2022-09-15] MEDS: Acetaminophen 325 MG Tablet 650 MG PO ×2 (02:06→21:49)
[2022-09-15] MEDS: 0.9% Saline Lock 10 ML Syringe IV ×2 (05:29→10:50)
[2022-09-15] MEDS: Levothyroxine 150 MCG Tablet PO (05:29)
[2022-09-15 06:17] LABS: Absolute Lymphocyte Count 0.54 X10^3/uL (0.83-4.51); Absolute Neutrophil Count 6.2 X10^3/uL (2.0-7.7); Basophil# 0.02 X10^3/uL; Basophil% 0.2 % (0-1); Eosinophil# 0.19 X10^3/uL; Eosinophils% 2.3 % (0-5); Hematocrit 23.1 % (40-54); Hemoglobin 7.2 g/dL (13.0-16.5); Lymphocyte # 0.54 X10^3/ul (0.83-4.51); Lymphocyte % 6.6 % (19-41); Mean Corp Hgb Conc 31.2 g/dL (32-36); Mean Corpuscular Hgb 28.1 pg (27.0-32.0); Mean Corpuscular Volume 90.2 fL (80-94); Mean Platelet Vol. 9.3 fl (6.2-12.0); Monocyte# 1.17 X10^3/uL; Monocyte% 14.3 % (0-10); NRBC Flagged by Analyzer 0 % (0-5); Neutrophil # 6.21 X10^3/uL (2.7-7.7); Neutrophil % 76.1 % (47-70); POSITIVE DIFFERENTIAL YES; Platelet Count 324 K/mm3 (150-450); RBC Distribution Width CV 13.3 % (11.6-14.6); RBC Distribution Width SD 43.8 fl (35.1-43.9); Red Blood Count 2.56 M/mm3 (4.6-6.2); White Blood Count 8.2 K/mm3 (4.4-11.0)
[2022-09-15 06:18] LABS: Differential Indicated SCAN CRITERIA MET
[2022-09-15 06:41] LABS: Anion Gap 4 (5-15); BUN 41 mg/dL (7-18); BUN/Creat Ratio 17.7 RATIO (10-20); Calcium,Total 7.5 mg/dL (8.5-10.1); Chloride 100 mmol/L (98-107); Creatinine, Serum 2.32 mg/dL (0.70-1.30); EST Glomerular Filtration Rate 30 mL/min (>60); Est Glom Filt Rate - Afr Amer 36 mL/min (>60); Estimated Creatinine Clearance 32.91 ml/min; Glucose 113 mg/dL (74-106); Potassium 3.9 mmol/L (3.5-5.1); Sodium Level 132 mmol/L (136-145)
[2022-09-15 06:58] LABS: Bedside Glucose 119 mg/dL (74-106)
[2022-09-15 06:58] LABS: Vancomycin, Random Level 23.6 ug/mL (0.0-15.0)
--- NOTE | 2022-09-15 07:51 | PCM.RX.CS ---
Consult Antibiotic Management Pharmacy has been consulted to manage selected antiobiotic: Vancomycin Type of Intervention Type of Consult: Follow-up Suspected Infection Suspected Infection: Pneumonia Prior Doses of Antibiotics Prior Doses of Antibiotics Received/Current Regimen: Vancomycin 2000 mg x 1 on 09/12/22 @ 2256, then vancomycin 1750 mg IV 09/13 @ 1141, 09/13 @ 2324 Labs Labs: Sodium 132 mmol/L (136-145) L 09/15/22 06:07 Potassium 3.9 mmol/L (3.5-5.1) 09/15/22 06:07 Chloride 100 mmol/L (98-107) 09/15/22 06:07 Carbon Dioxide 28.0 mmol/L (21.0-32.0) 09/15/22 06:07 Anion Gap 4 (5-15) L 09/15/22 06:07 BUN 41 mg/dL (7-18) H 09/15/22 06:07 Creatinine 2.32 mg/dL (0.70-1.30) H 09/15/22 06:07 Est GFR (MDRD) Af Amer 36 mL/min (>60) L 09/15/22 06:07 Est GFR (MDRD) Non-Af 30 mL/min (>60) L 09/15/22 06:07 BUN/Creatinine Ratio 17.7 RATIO (10-20) 09/15/22 06:07 Glucose 113 mg/dL (74-106) H 09/15/22 06:07 Vancomycin Trough 29.9 ug/mL (5.0-15.0) H 09/14/22 10:20 Random Vancomycin 23.6 ug/mL (0.0-15.0) H 09/15/22 06:07 Microbiology Microbiology: Microbiology 09/12/22 17:22 Blood Culture (Wb) - Anticubital Right Blood Culture - Preliminary No growth in 48 hours. 09/12/22 16:58 Blood Culture (Wb) - Anticubital Right Blood Culture - Preliminary No growth in 48 hours. 09/12/22 23:05 Sputum, Tracheal Aspirate Gram Stain - Final 09/12/22 23:05 Sputum, Tracheal Aspirate Respiratory Culture - Preliminary GNR Poss Pseudomonas sp Gram negative ady Gram negative ady#2 09/12/22 23:10 Mucosa - Nasopharyngeal Respiratory Panel (PCR) - Final 09/12/22 16:50 Nasal Secretion SARS-CoV-2 & FLU Antigen (Rapid) - Final 09/12/22 22:40 Urine, Clean Catch Streptococcus pneumoniae Antigen (M - Final 09/12/22 22:40 Urine, Clean Catch Legionella Antigen - Final Dosing Weight Weight used for dosin.9 kg Estimated Creatinine Clearance Estimated Creatinine Clearance: 33 Goal Trough Goal Trough: 15-20 mcg/mL Pharmacy Plan for Drug Dosing Pharmacy Plan for Drug Dosing: Vancomycin random level this AM was 23.6 30 hours after previous dose and ~ 20 hours since previous level of 29.9. Will continue to hold vancomcyin for now with a random level tomorrow 09/16/22 in the AM. Pharmacy Service will continue to monitor and adjust dosing as required. Follow-Up Labs Follow-Up Labs: Trough: Vancomycin (Random) Date/Time Labs Ordered Labs to be done on [date and time ordered]: 09/16/22 @ 0600 (random)
--- NOTE | 2022-09-15 09:23 | PCM.PN.HOSP ---
Reason for Visit Reason for Visit: Diagnoses Acute on chronic diastolic (congestive) heart failure (09/12/22) Heart failure, unspecified (09/12/22) Subjective Subjective Follow-up for acute on chronic combined respiratory failure. Objective Data Objective Data Vital Signs: Vital Signs Temp Pulse Resp BP Pulse Ox O2 Del Method O2 Flow Rate 97.8 F 88 20 H 123/63 H 100 Trach Collar 8 09/15/22 04:42 09/15/22 07:13 09/15/22 07:13 09/15/22 04:42 09/15/22 04:42 09/15/22 04:42 09/14/22 12:43 FiO2 40 09/15/22 04:42 Oxygen Flow Rate (L/min) 8 Oxygen Delivery Method Trach Collar Weight: 288 lb 9.361 oz Body Mass Index (BMI) 40.2 Intake & Output: Intake and Output for Last 24 Hours 09/13/22 09/14/22 09/15/22 23:59 23:59 23:59 Intake Total 2025 / 2025 685 / 685 50 / 50 Output Total 1000 / 1000 1400 / 1400 Balance 1025 / 1025 -715 / -715 50 / 50 Lab / Micro Data 09/15/22 06:07 09/15/22 06:07 Labs: Laboratory Results - last 24 hr 09/14/22 10:20: Vancomycin Trough 29.9 H 09/14/22 10:56: POC Glucose 184 H 09/14/22 16:15: POC Glucose 108 H 09/14/22 21:30: POC Glucose 179 H 09/15/22 06:07: WBC 8.2, RBC 2.56 L, Hgb 7.2 L, Hct 23.1 L, MCV 90.2, MCH 28.1, MCHC 31.2 L, RDW Std Deviation 43.8, RDW Coeff of Alisson 13.3, Plt Count 324, MPV 9.3, Immature Gran % (Auto) 0.500, Neut % (Auto) 76.1 H, Lymph % (Auto) 6.6 L, [place] % (Auto) 14.3 H, Eos % (Auto) 2.3, Baso % (Auto) 0.2, Absolute Neuts (auto) 6.2, Absolute Lymphs (auto) 0.54 L, Nucleated RBC % 0, Sodium 132 L, Potassium 3.9, Chloride 100, Carbon Dioxide 28.0, Anion Gap 4 L, BUN 41 H, Creatinine 2.32 H, Estim Creat Clear Calc 32.91, Est GFR (MDRD) Af Amer 36 L, Est GFR (MDRD) Non-Af 30 L, BUN/Creatinine Ratio 17.7, Glucose 113 H, Calcium 7.5 L, Random Vancomycin 23.6 H 09/15/22 06:37: POC Glucose 119 H Micro: Microbiology 09/12/22 23:05 Sputum, Tracheal Aspirate Gram Stain - Final 09/12/22 23:05 Sputum, Tracheal Aspirate Respiratory Culture - Preliminary Hafnia alvei Pseudomonas aeruginosa Serratia marcescens Beta streptococcus 09/12/22 17:22 Blood Culture (Wb) - Anticubital Right Blood Culture - Preliminary No growth in 48 hours. 09/12/22 16:58 Blood Culture (Wb) - Anticubital Right Blood Culture - Preliminary No growth in 48 hours. 09/12/22 23:10 Mucosa - Nasopharyngeal Respiratory Panel (PCR) - Final 09/12/22 16:50 Nasal Secretion SARS-CoV-2 & FLU Antigen (Rapid) - Final 09/12/22 22:40 Urine, Clean Catch Streptococcus pneumoniae Antigen (M - Final 09/12/22 22:40 Urine, Clean Catch Legionella Antigen - Final Physical Exam Narrative Seen and examined. Patient on 8-10 L of oxygen. Usually on 4 L of home oxygen. Has tracheostomy with trach collar. Again, last night he got very short of breath/dyspnea probably due to mucous plugging. Currently he is comfortable. General: Alert, Oriented x3, Cooperative, morbid obesity BMI 39.6 KG per square meter. HEENT: Atraumatic, PERRLA, EOMI, Normocephalic Oral: Oral mucosa dry. No Gingival or Mucosal Lesions/ Ulcerations Neck: Tracheostomy with trach collar, purulent secretions. Supple, No JVD, Negative Carotid Bruits Lungs: Air entry diminished in bilateral lung bases. No crepitation/rhonchi; lungs clear but on high flow oxygen. Cardiovascular: Regular rate, Regular Rhythm, Normal S1, Normal S2, systolic murmur LLSB Abdomen: Bowel Sounds Present, Soft, Non Tender, Non-Distended : No renal angle tenderness. No suprapubic tenderness. Extremities: Bilateral 2+ edema above the knee level, Capillary Refill Less than 3 Seconds Skin: No rashes, No breakdown Musculoskeletal: ROM restricted. Bilateral knee and hip joints arthritis. No Tenderness to Palpation of Joints or Extremities Neurological: Cranial nerves II-XII grossly intact, DTR 2+/4. No acute focal neurological deficit. Psych/Mental Status: Normal Affect, Appropriate. Assessment & Plan Assessment/Plan (1) CHF exacerbation: QUALIFIERS: Heart failure type: diastolic Qualified Code(s): I50.33 - Acute on chronic diastolic (congestive) heart failure PLAN: Plan Patient is a 67-year-old gentleman with multiple comorbidities admitted with shortness of breath and assessment of congestive heart failure made admitted to a monitored bed for subsequent management 1. Acute on chronic congestive heart failure with preserved ejection fraction ? Admitted to monitored bed managed with diuretics, strict input and output, daily weight fluid restriction as well as supplemental oxygen. Patient last echo was on 10/24/2021 did demonstrate EF of 55% repeat echo ordered for subsequent assessment 09/14: Patient had echo on 09/12/2022 which showed EF 65%, RA mildly enlarged LA moderately enlarged suggestive of HFpEF. Chest x-ray UA shows loculated left pleural effusion and pleural thickening with underlying atelectasis. 2. Acute on chronic combined hypoxic and hypercarbic respiratory failure with history of Recurrent left-sided pleural effusion 09/15: Patient on 10 L of oxygen and 40% FiO2 trach collar for last 2 days. He gets mucous plugging and respiratory distress gets relief from tracheal suction. ? Possibly related to patient congestive heart failure,. Patient apparently had a malfunction left tunneled Pleurx catheter which was removed at [facility] during his recent hospitalization. Patient was discharged from [place] on 09/11/2022. 3. History of laryngeal carcinoma ? Status post laryngectomy with subsequent tracheostomy in 2007, patient has since remained in remission 4. Class III obesity with BMI 38.6 ? Complicating care, weight loss advised 5. Hypothyroidism - Patient is on levothyroxine home dose continued 6. Hypertension - Blood pressure controlled, home medications continued with dose adjustment as needed 7. Diabetes mellitus type II -patient's oral hypoglycemics held. Placed on long acting insulin, Accu-Cheks a.c. and at bedtime and covered with sliding scale insulin 8. Anemia - Secondary to chronic disorder monitoring H&H and transfuse if patient becomes symptomatic or hemoglobin falls below 7 9. ALEJANDRA on chronic kidney disease stage IIIa due to furosemide 09/14: Patient admitted with creatinine 1.6 to improved to 1.35. 09/15: Creatinine jumped from 1.35-2.32. Furosemide discontinued. Hyponatremia due to diuretic 132. Nephro consult. Monitor kidney function, electrolytes and intake and output. 10. Chronic hypoxic and hypercarbic respiratory failure ? Secondary to COPD as well as obesity hypoventilation syndrome and his underlying congestive heart failure. On 4 L of home oxygen 11. Paroxysmal A. fib ? Rate controlled.Patient is on apixaban for stroke prophylaxis 12. Physical deconditioning - Requested for PT OT eval and social security assessor to assist with discharge planning 14.DVT prophylaxis ? Apixaban Time spent in the patient's overall evaluation,decision-making process, review of diagnostic data, adjustment of management, discussion with other providers, nursing nursing and ancillary staff involved in patient's care documentation, 45 minutes Clinical Impression(s) from Imaging Studies Chest X-Ray 09/12/22 17:07 IMPRESSION: Left chest tube has been removed. Echocardiogram 09/12/22 21:29 Interpretation Summary The estimated ejection fraction is 65 %. No evidence for diastolic dysfunction. The right atrium is mildly enlarged. The left atrium is moderately enlarged. Chest X-Ray 09/13/22 05:55 IMPRESSION: 1. Persistent loculated left pleural effusion or pleural thickening with overlying atelectasis or infiltration the left lower lung field. No significant interval change. 2. Cardiomegaly. 3. Tracheostomy tube in place. Charges/Coding Visit Charges Inpatient E&M: 48637 [facility] Hosp L2
[2022-09-15] MEDS: Metolazone 2.5 MG Tablet PO (10:45)
[2022-09-15] MEDS: Potassium Chloride Oral Soln 20 MEQ/15 ML UDC 40 MEQ PO (10:45)
[2022-09-15] MEDS: Aspirin E.C. 81 MG Tablet PO (10:46)
[2022-09-15] MEDS: APIXABAN 5 MG TABLET PO ×2 (10:46→21:47)
[2022-09-15] MEDS: Pantoprazole Sodium 20 MG Tablet PO (10:46)
[2022-09-15] MEDS: Furosemide 40 MG/4 ML Vial IV (10:48)
[2022-09-15] MEDS: Insulin Lispro 100 UNIT/ML INSULN.PEN SC ×2 (11:41→21:47)
[2022-09-15] MEDS: Ferrous Sulfate 325 MG Tablet PO (11:41)
[2022-09-15 12:02] LABS: Bedside Glucose 183 mg/dL (74-106)
--- NOTE | 2022-09-15 13:12 | CON.PCM.RE_ITS ---
Assessment & Plan Assessment/Plan (1) ALEJANDRA (acute kidney injury): PLAN: Plan Acute renal failure CKD stage IIIa Baseline creatinine appears to be around 1.1-1.3. Creatinine was at 1.3 yesterday, increased to 2.3 today. Denies any obstructive symptoms. Blood pressure has been borderline. Medication list reviewed. He was on Lasix and metolazone yesterday. Both of these are on hold today. Possible this is cardiorenal syndrome. We will check a postvoid bladder scan, urine analysis. If proteinuria present we will check a urine protein creatinine ratio. I would hold all diuretics for today. He is on Cardizem which is being continued. No other antihypertensives on board. Edema/anasarca. Has moderate amount of lower extremity edema which according to family members has been present for several days now. Does not check weight regularly but they do not think weight has increased significantly. Chest x-ray showed predominantly left-sided effusion/infiltrates. He had a Pleurx catheter which was removed recently on the left side. Echocardiogram is essentially normal. Good ejection fraction, no signs of diastolic dysfunction. BNP is around 300 which is normal very impressive. It is possible that edema in lower extremity is hydrostatic. We will check a urine protein creatinine ratio if any protein present on urine analysis. Hold Lasix and metolazone for now. Discussed with hospitalist HPI Consult Data Date of Consult: 09/15/22 HPI Narrative Reason for Consultation: Acute renal failure HPI Narrative: ABDIEL CORTEZ, is a 67 M who presents to the hospital with shortness of breath. Nephrology on consultation due to acute renal failure. It seems he has known history of CKD stage IIIa with baseline creatinine around 1.1-1.3. He has history of tracheostomy after diagnosis of laryngeal carcinoma any years ago. Recently issues with pleural effusion. Apparently had a Pleurx catheter and this was removed at the time of admission to [facility] beginning of this month. Stable with worsening shortness of breath, chest x-ray showed left-sided effusion/infiltrates. Has significant lower extremity edema which according to family has been present for the last few days. He does use Aldo wraps on the legs. Denies any urinary complaints. He says that he is not voiding much. Blood pressure is borderline. No history of nephrotic syndrome according to the charts. Urine protein estimation last year was normal. Other than shortness of breath she denies any other complaints. [facility] Medical History (HFpEF) heart failure with preserved ejection fraction Ambulates with cane Anticoagulant long-term use Anxiety Atherosclerosis of coronary artery of [place] heart without angina pectoris Back pain Benign neoplasm of colon Chronic a-fib Chronic pain Chronic renal failure, stage 3 (moderate) COPD (chronic obstructive pulmonary disease) Diabetes mellitus, type II Diverticulosis of colon (without mention of hemorrhage) Emphysema, unspecified Esophageal dysmotility Essential hypertension Former smoker Gastric reflux Gastroenteritis Gout Hiatal hernia History of colon polyps Hyperlipidemia Hypothyroidism Injury of back Injury of head and neck Laryngeal cancer Malignant neoplasm of head, neck and face Migraine headache Obesity On home oxygen therapy Recurrent left pleural effusion Type 2 diabetes mellitus without complication Walker as ambulation aid Wears glasses Home Medications levothyroxine 150 mcg tablet 150 mcg PO DAILY hypothyroidism 06/04/14 [History Last Taken 12/05/21] atorvastatin 40 mg tablet 40 mg PO DAILY@1700 cholesterol 04/12/17 [History Last Taken 12/05/21] ipratropium 0.5 mg-albuterol 3 mg (2.5 mg base)/3 mL nebulization soln 3 ml inhalation Q6H sob 04/12/17 [History Last Taken 12/06/21] flash glucose sensor (FreeStyle Zayra 2 Sensor kit) #2 ea 05/17/21 [Rx Last Taken Unknown] lisinopril 5 mg tablet 5 mg PO DAILY BLOOD PRESSURE 11/07/21 [History Last Taken 12/05/21] acetaminophen 325 mg tablet 650 mg PO DAILY PRN Pain 12/06/21 [History Last Taken 12/05/21] budesonide 0.5 mg/2 mL suspension for nebulization (Pulmicort) 0.5 mg inhalation BID sob 12/06/21 [History Last Taken Unknown] guaifenesin 600 mg tablet, extended release 12 hr (Mucinex) 600 mg PO DAILY PRN Congestion 12/06/21 [History Last Taken 12/05/21] omeprazole 20 mg capsule,delayed release 20 mg PO DAILY GERD 12/06/21 [History Last Taken 12/05/21] diltiazem HCl 120 mg capsule,extended release 24 hr 120 mg PO BID #180 caps 12/14/21 [Rx Last Taken Unknown] apixaban 5 mg tablet (Eliquis) 5 mg PO BID #60 tabs 12/15/21 [Rx Last Taken Unknown] cyanocobalamin (vitamin B-12) 2,500 mcg tablet 2,500 mcg PO DAILY supplement 12/15/21 [History Last Taken Unknown] furosemide 40 mg tablet 40 mg PO BID EDEMA #60 tabs 02/21/22 [Rx Last Taken Unknown] metolazone 2.5 mg tablet 2.5 mg PO MOWEFR EDEMA #30 tabs 02/21/22 [Rx Last Taken Unknown] spironolactone 25 mg tablet 25 mg PO DAILY 02/21/22 [History Last Taken Unknown] Trulicity 4.5 mg/0.5 mL subcutaneous pen injector (dulaglutide) 4.5 mg (0.5 mL) subcut FR DIABETES #6 mL 04/03/22 [Rx Last Taken Unknown] insulin aspart U-100 100 unit/mL (3 mL) subcutaneous pen (Novolog FlexPen U-100 Insulin aspart) 12 unit (0.12 mL) subcut TID #45 mL 04/03/22 [Rx Last Taken Unknown] insulin lispro 100 unit/mL subcutaneous pen (Humalog KwikPen (U-100) Insulin) 12 unit (0.12 mL) subcut TID #36 mL 04/07/22 [Rx Last Taken Unknown] potassium chloride 40 mEq/15 mL oral liquid 40 meq (15 mL) PO DAILY 10 days #150 mL 08/19/22 [Rx Last Taken Unknown] ferrous sulfate 325 mg (65 mg iron) tablet (FeroSul) 325 mg PO DAILY 08/29/22 [History Last Taken Unknown] insulin detemir U-100 100 unit/mL (3 mL) subcutaneous pen (Levemir FlexPen) 20 unit subcut QHS 09/12/22 [History Last Taken Unknown] Allergy/AdvReac Type Severity Reaction Status Date / Time acetaminophen [From Percocet] AdvReac Intermediate headache Verified 09/12/22 16:13 oxycodone [From Percocet] AdvReac Intermediate headache Verified 09/12/22 16:13 egg [eggs] AdvReac Vomiting Verified 09/12/22 16:13 Family History Mother Diabetes Hypertension Kidney disease Heart failure Father CVA (cerebral vascular accident) Hypertension Heart disease ischemic Brother Diabetes Surgical History History of cardiac catheterization History of exploratory laparotomy History of laryngectomy (2007) History of thyroidectomy Hx of colonoscopy Presence of tracheostomy Social History Smoking Status: Former smoker Smokeless tobacco user: snuff how long ago did patient quit smokin years ago alcohol intake: never substance use type: does not use caffeine: Yes what type of physical activity do you participate in: none frequency: does not exercise ROS ROS Narrative Negative except above Physical Exam Narrative Alert awake oriented x 3 no obvious distress no pallor no icterus no JVD s1s2 no murmurs lungs clear abdomen soft no organomegaly +++ edema no cyanosis Lab / Micro Data 09/15/22 06:07 09/15/22 06:07 Labs: Laboratory Results - last 24 hr 09/14/22 16:15: POC Glucose 108 H 09/14/22 21:30: POC Glucose 179 H 09/15/22 06:07: WBC 8.2, RBC 2.56 L, Hgb 7.2 L, Hct 23.1 L, MCV 90.2, MCH 28.1, MCHC 31.2 L, RDW Std Deviation 43.8, RDW Coeff of Alisson 13.3, Plt Count 324, MPV 9.3, Immature Gran % (Auto) 0.500, Neut % (Auto) 76.1 H, Lymph % (Auto) 6.6 L, [place] % (Auto) 14.3 H, Eos % (Auto) 2.3, Baso % (Auto) 0.2, Absolute Neuts (auto) 6.2, Absolute Lymphs (auto) 0.54 L, Nucleated RBC % 0, Sodium 132 L, Potassium 3.9, Chloride 100, Carbon Dioxide 28.0, Anion Gap 4 L, BUN 41 H, Creatinine 2.32 H, Estim Creat Clear Calc 32.91, Est GFR (MDRD) Af Amer 36 L, Est GFR (MDRD) Non-Af 30 L, BUN/Creatinine Ratio 17.7, Glucose 113 H, Calcium 7.5 L, Random Vancomycin 23.6 H 09/15/22 06:37: POC Glucose 119 H 09/15/22 11:37: POC Glucose 183 H Micro: Microbiology 09/12/22 23:05 Sputum, Tracheal Aspirate Gram Stain - Final 09/12/22 23:05 Sputum, Tracheal Aspirate Respiratory Culture - Final Hafnia alvei Pseudomonas aeruginosa Serratia marcescens Beta streptococcus 09/12/22 17:22 Blood Culture (Wb) - Anticubital Right Blood Culture - Preliminary No growth in 48 hours. 09/12/22 16:58 Blood Culture (Wb) - Anticubital Right Blood Culture - Preliminary No growth in 48 hours.
[2022-09-15] MEDS: Atorvastatin Calcium 40 MG Tablet PO (16:42)
[2022-09-15 17:12] LABS: Bedside Glucose 137 mg/dL (74-106)
[2022-09-15 17:14] LABS: Bacteria 0 SEEN /hpf (None Seen); Mucous, Urine 0 SEEN /hpf (<or=2+); Red Blood Cells-Urine 0 SEEN /hpf (0-5); Squamous Epithelial Cells - UA 0 SEEN /hpf (0-5); White Blood Cells 0 SEEN /hpf (0-5)
[2022-09-15 17:17] LABS: Color, Urine Yellow (Yellow); Glucose, Dipstick Normal (Normal); Ketone-Dipstick Negative (Negative); Leukocyte Esterase-Dipstick Negative /ul (Negative); Nitrite-Dipstick Negative (Negative); Occult Blood-Urine Negative /ul (Negative); Protein-Dipstick Negative (Negative); Specific Gravity, Urine 1.015 (1.002-1.030); Urine Bilirubin Dipstick Negative (Negative); Urine Clarity Clear (Clear); Urine Urobilinogen Normal (Normal)
[2022-09-15] MEDS: dilTIAZem CD 120 MG Capsule PO (21:47)
[2022-09-15] MEDS: Insulin Glargine-YFGN 100 UNIT/ML Pen 20 UNIT SC (21:48)
[2022-09-15 22:18] LABS: Bedside Glucose 165 mg/dL (74-106)
[2022-09-16] VITALS (13 sets, daily range): BP systolic 109–126; BP diastolic 59–79; PULSE 81–102; RESP 16–24; TEMP 36.9–37.6; O2SAT 95–100
[2022-09-16] MEDS: Albuterol 2.5 MG/3 ML VIAL.NEB. INHALATION (02:45)
[2022-09-16] MEDS: Nitroglycerin (INPATIENT USE) 0.4 MG TAB.SUBL SL (02:51)
[2022-09-16] MEDS: Levothyroxine 150 MCG Tablet PO (05:35)
--- NOTE | 2022-09-16 06:11 | EX.PCM.CONCC ---
Assessment & Plan Assessment/Plan (1) Pleural effusion, left: PLAN: Plan RECOMMENDATIONS: 1. Wean supplemental oxygen to maintain saturations at or above 90%. 2. Antimicrobials per ID recommendations. 3. Outpatient follow-up with thoracic surgery regarding loculated effusion. No indication for tube thoracotomy. 4. Encourage incentive spirometer use and mobilize patient as tolerated. 5. We will sign off from a pulmonary perspective. Please call with any additional questions. IMPRESSIONS: 1. Recurrent pleural effusion The patient has been followed in the past in the pulmonary medicine clinic due to a history of a left-sided pleural effusion, which has typically been transudative in nature and was felt to be secondary to underlying heart failure. The patient appears to have a complicated pleural space. He did at one point have a Pleurx catheter in place, which was apparently removed during a recent hospitalization at [facility] this month. From my perspective, I do not see any indication for any additional intervention at this time. I would, however, recommend that the patient follow-up in the thoracic surgery office after discharge to determine if any surgical intervention is required regarding his loculated pleural space. 2. COPD/chronic combined respiratory failure The patient has a baseline oxygen requirement of 4 L/min. He appears to be at his baseline from a respiratory perspective. Continue bronchodilators as ordered. Antimicrobial management per infectious diseases. This note was generated with [employer] dictation software. It may contain incorrect words, spelling, and punctuation that were not noted in checking the note before signing. HPI Consult Data Date of Consult: 09/16/22 HPI Narrative Reason for Consultation: Loculated effusion status post Pleurx removal HPI Narrative: The patient is a 67-year-old male, with a history as outlined below, who initially presented to the emergency department on September 12 with shortness of breath, chest tightness and cough. The patient has been followed in the past in the pulmonary medicine clinic due to a history of a left-sided pleural effusion, which has typically been transudative in nature and was felt to be secondary to underlying heart failure. The patient also has nocturnal hypoxemia, requiring 4 L/min of supplemental oxygen nightly, along with a history of laryngeal cancer status post tracheostomy. The patient was last seen in the pulmonary medicine clinic in February 2022. In the past, the patient had a Pleurx catheter in place to drain his effusion, but stated that it was recently removed. The patient was initially admitted to the hospital over concerns for decompensated diastolic congestive heart failure. The patient has been medically managed with diuretics and antimicrobials. Sputum culture dated September 12 was positive for Pseudomonas and Serratia marcescens. We were then asked by infectious diseases to evaluate the patient given his history of a loculated effusion and to determine the need for new chest tube placement. The patient's last chest x-ray completed on September 13 demonstrated a persistent questionably loculated left-sided pleural effusion with cardiomegaly. The patient remains on trach collar with an FiO2 of 30%. [facility] Medical History (HFpEF) heart failure with preserved ejection fraction Ambulates with cane Anticoagulant long-term use Anxiety Atherosclerosis of coronary artery of [place] heart without angina pectoris Back pain Benign neoplasm of colon Chronic a-fib Chronic pain Chronic renal failure, stage 3 (moderate) COPD (chronic obstructive pulmonary disease) Diabetes mellitus, type II Diverticulosis of colon (without mention of hemorrhage) Emphysema, unspecified Esophageal dysmotility Essential hypertension Former smoker Gastric reflux Gastroenteritis Gout Hiatal hernia History of colon polyps Hyperlipidemia Hypothyroidism Injury of back Injury of head and neck Laryngeal cancer Malignant neoplasm of head, neck and face Migraine headache Obesity On home oxygen therapy Recurrent left pleural effusion Type 2 diabetes mellitus without complication Walker as ambulation aid Wears glasses Home Medications levothyroxine 150 mcg tablet 150 mcg PO DAILY hypothyroidism 06/04/14 [History Last Taken 12/05/21] atorvastatin 40 mg tablet 40 mg PO DAILY@1700 cholesterol 04/12/17 [History Last Taken 12/05/21] ipratropium 0.5 mg-albuterol 3 mg (2.5 mg base)/3 mL nebulization soln 3 ml inhalation Q6H sob 04/12/17 [History Last Taken 12/06/21] flash glucose sensor (FreeStyle Zayra 2 Sensor kit) #2 ea 05/17/21 [Rx Last Taken Unknown] lisinopril 5 mg tablet 5 mg PO DAILY BLOOD PRESSURE 11/07/21 [History Last Taken 12/05/21] acetaminophen 325 mg tablet 650 mg PO DAILY PRN Pain 12/06/21 [History Last Taken 12/05/21] budesonide 0.5 mg/2 mL suspension for nebulization (Pulmicort) 0.5 mg inhalation BID sob 12/06/21 [History Last Taken Unknown] guaifenesin 600 mg tablet, extended release 12 hr (Mucinex) 600 mg PO DAILY PRN Congestion 12/06/21 [History Last Taken 12/05/21] omeprazole 20 mg capsule,delayed release 20 mg PO DAILY GERD 12/06/21 [History Last Taken 12/05/21] diltiazem HCl 120 mg capsule,extended release 24 hr 120 mg PO BID #180 caps 12/14/21 [Rx Last Taken Unknown] apixaban 5 mg tablet (Eliquis) 5 mg PO BID #60 tabs 12/15/21 [Rx Last Taken Unknown] cyanocobalamin (vitamin B-12) 2,500 mcg tablet 2,500 mcg PO DAILY supplement 12/15/21 [History Last Taken Unknown] furosemide 40 mg tablet 40 mg PO BID EDEMA #60 tabs 02/21/22 [Rx Last Taken Unknown] metolazone 2.5 mg tablet 2.5 mg PO MOWEFR EDEMA #30 tabs 02/21/22 [Rx Last Taken Unknown] spironolactone 25 mg tablet 25 mg PO DAILY 02/21/22 [History Last Taken Unknown] Trulicity 4.5 mg/0.5 mL subcutaneous pen injector (dulaglutide) 4.5 mg (0.5 mL) subcut FR DIABETES #6 mL 04/03/22 [Rx Last Taken Unknown] insulin aspart U-100 100 unit/mL (3 mL) subcutaneous pen (Novolog FlexPen U-100 Insulin aspart) 12 unit (0.12 mL) subcut TID #45 mL 04/03/22 [Rx Last Taken Unknown] insulin lispro 100 unit/mL subcutaneous pen (Humalog KwikPen (U-100) Insulin) 12 unit (0.12 mL) subcut TID #36 mL 04/07/22 [Rx Last Taken Unknown] potassium chloride 40 mEq/15 mL oral liquid 40 meq (15 mL) PO DAILY 10 days #150 mL 08/19/22 [Rx Last Taken Unknown] ferrous sulfate 325 mg (65 mg iron) tablet (FeroSul) 325 mg PO DAILY 08/29/22 [History Last Taken Unknown] insulin detemir U-100 100 unit/mL (3 mL) subcutaneous pen (Levemir FlexPen) 20 unit subcut QHS 09/12/22 [History Last Taken Unknown] Allergy/AdvReac Type Severity Reaction Status Date / Time acetaminophen [From Percocet] AdvReac Intermediate headache Verified 09/12/22 16:13 oxycodone [From Percocet] AdvReac Intermediate headache Verified 09/12/22 16:13 egg [eggs] AdvReac Vomiting Verified 09/12/22 16:13 Family History Mother Diabetes Hypertension Kidney disease Heart failure Father CVA (cerebral vascular accident) Hypertension Heart disease ischemic Brother Diabetes Surgical History History of cardiac catheterization History of exploratory laparotomy History of laryngectomy (2007) History of thyroidectomy Hx of colonoscopy Presence of tracheostomy Social History Smoking Status: Former smoker Smokeless tobacco user: snuff how long ago did patient quit smokin years ago alcohol intake: never substance use type: does not use caffeine: Yes what type of physical activity do you participate in: none frequency: does not exercise ROS ROS Narrative 10 systems were reviewed with pertinent positives as noted in the HPI above. Physical Exam Const alert and no apparent distress Constitutional Narrative: Sitting in bedside recliner. General Appearance: cooperative HEENT normocephalic and head/scalp atraumatic Eyes PERRL, EOMs intact bilaterally and conjunctivae normal Neck Neck Narrative: Stable tracheostomy site. Chest inspection of chest normal Resp Auscultation: diminished lung sounds; Negative for rales, rhonchi or wheezes Cardio regular rate and regular rhythm GI normal to inspection, nondistended, normoactive bowel sounds Extremity General Extremity: edema Skin Skin Narrative: Wrapped lower extremities. Neuro CN's II-XII intact bilaterally and no focal motor deficits Psych cooperative and affect normal Lab / Micro Data 09/15/22 06:07 09/15/22 06:07 Labs: Laboratory Results - last 24 hr 09/15/22 06:07: WBC 8.2, RBC 2.56 L, Hgb 7.2 L, Hct 23.1 L, MCV 90.2, MCH 28.1, MCHC 31.2 L, RDW Std Deviation 43.8, RDW Coeff of Alisson 13.3, Plt Count 324, MPV 9.3, Immature Gran % (Auto) 0.500, Neut % (Auto) 76.1 H, Lymph % (Auto) 6.6 L, [place] % (Auto) 14.3 H, Eos % (Auto) 2.3, Baso % (Auto) 0.2, Absolute Neuts (auto) 6.2, Absolute Lymphs (auto) 0.54 L, Nucleated RBC % 0, Sodium 132 L, Potassium 3.9, Chloride 100, Carbon Dioxide 28.0, Anion Gap 4 L, BUN 41 H, Creatinine 2.32 H, Estim Creat Clear Calc 32.91, Est GFR (MDRD) Af Amer 36 L, Est GFR (MDRD) Non-Af 30 L, BUN/Creatinine Ratio 17.7, Glucose 113 H, Calcium 7.5 L, Random Vancomycin 23.6 H 09/15/22 06:37: POC Glucose 119 H 09/15/22 11:37: POC Glucose 183 H 09/15/22 16:40: POC Glucose 137 H 09/15/22 16:50: Urine Color Yellow, Urine Clarity Clear, Urine pH 5.0, Ur Specific [place] 1.015, Urine Protein Negative, Urine Glucose (UA) Normal, Urine Ketones Negative, Urine Occult Blood Negative, Urine Nitrite Negative, Urine Bilirubin Negative, Urine Urobilinogen Normal, Ur Leukocyte Esterase Negative, Urine RBC 0 SEEN, Urine WBC 0 SEEN, Ur Squamous Epith Cells 0 SEEN, Urine Bacteria 0 SEEN, Urine Mucus 0 SEEN 09/15/22 21:46: POC Glucose 165 H Micro: Microbiology 09/12/22 23:05 Sputum, Tracheal Aspirate Gram Stain - Final 09/12/22 23:05 Sputum, Tracheal Aspirate Respiratory Culture - Final Hafnia alvei Pseudomonas aeruginosa Serratia marcescens Beta streptococcus 09/12/22 17:22 Blood Culture (Wb) - Anticubital Right Blood Culture - Preliminary No growth in 48 hours. 09/12/22 16:58 Blood Culture (Wb) - Anticubital Right Blood Culture - Preliminary No growth in 48 hours. Charges/Coding Visit Charges Inpatient E&M: 20852 Init Hosp L2
[2022-09-16 06:45] LABS: Absolute Lymphocyte Count 0.58 X10^3/uL (0.83-4.51); Absolute Neutrophil Count 4.7 X10^3/uL (2.0-7.7); Basophil# 0.02 X10^3/uL; Basophil% 0.3 % (0-1); Eosinophil# 0.21 X10^3/uL; Eosinophils% 3.3 % (0-5); Hematocrit 23.5 % (40-54); Hemoglobin 7.2 g/dL (13.0-16.5); Lymphocyte # 0.58 X10^3/ul (0.83-4.51); Lymphocyte % 9.1 % (19-41); Mean Corp Hgb Conc 30.6 g/dL (32-36); Mean Corpuscular Hgb 27.5 pg (27.0-32.0); Mean Corpuscular Volume 89.7 fL (80-94); Mean Platelet Vol. 9.1 fl (6.2-12.0); Monocyte% 14.1 % (0-10); NRBC Flagged by Analyzer 0 % (0-5); Neutrophil # 4.65 X10^3/uL (2.7-7.7); Neutrophil % 72.9 % (47-70); POSITIVE DIFFERENTIAL YES; Platelet Count 319 K/mm3 (150-450); RBC Distribution Width CV 13.4 % (11.6-14.6); RBC Distribution Width SD 44.3 fl (35.1-43.9); Red Blood Count 2.62 M/mm3 (4.6-6.2); White Blood Count 6.4 K/mm3 (4.4-11.0)
[2022-09-16] MEDS: Insulin Lispro 100 UNIT/ML INSULN.PEN SC (06:48)
[2022-09-16 06:53] LABS: Differential Indicated SCAN CRITERIA MET
[2022-09-16] MEDS: Ipratropium/Albuterol Sulfate 3 ML AMPUL.NEB INHALATION ×4 (07:04→19:32)
[2022-09-16 07:09] LABS: Bedside Glucose 161 mg/dL (74-106)
[2022-09-16 07:22] LABS: Anion Gap 5 (5-15); BUN 47 mg/dL (7-18); Calcium,Total 7.5 mg/dL (8.5-10.1); Chloride 100 mmol/L (98-107); Creatinine, Serum 2.04 mg/dL (0.70-1.30); EST Glomerular Filtration Rate 35 mL/min (>60); Est Glom Filt Rate - Afr Amer 42 mL/min (>60); Estimated Creatinine Clearance 37.42 ml/min; Glucose 147 mg/dL (74-106); Potassium 4.2 mmol/L (3.5-5.1); Sodium Level 133 mmol/L (136-145)
[2022-09-16] MEDS: Pantoprazole Sodium 20 MG Tablet PO (09:02)
[2022-09-16] MEDS: dilTIAZem CD 120 MG Capsule PO ×2 (09:03→20:58)
[2022-09-16] MEDS: APIXABAN 5 MG TABLET PO ×2 (09:03→20:58)
[2022-09-16] MEDS: Aspirin E.C. 81 MG Tablet PO (09:04)
[2022-09-16] MEDS: Ferrous Sulfate 325 MG Tablet PO (11:22)
[2022-09-16 11:54] LABS: Bedside Glucose 143 mg/dL (74-106)
[2022-09-16] MEDS: Atorvastatin Calcium 40 MG Tablet PO (16:28)
[2022-09-16 16:47] LABS: Bedside Glucose 145 mg/dL (74-106)
--- NOTE | 2022-09-16 18:15 | PN.HOSP_ITS ---
Reason for Visit Reason for Visit: Diagnoses Acute on chronic diastolic (congestive) heart failure (09/12/22) Heart failure, unspecified (09/12/22) Pneumonia, unspecified organism (09/12/22) Pleural effusion, not elsewhere classified (09/12/22) Acute kidney failure, unspecified (09/12/22) Subjective Subjective Patient seen at bedside, present. Sitting in bedside chair and eating his lunch, conversing normally, no acute distress. Currently denies any shortness of breath. Denies any pain or discomfort. Denies any fevers or chills. Co ntinues to feel somewhat fatigued but this is improving. No other acute concerns. Objective Data Objective Data Vital Signs: Vital Signs Temp Pulse Resp BP Pulse Ox O2 Del Method O2 Flow Rate 99.6 F H 85 20 H 122/68 H 99 Trach Collar 8 09/16/22 14:20 09/16/22 14:58 09/16/22 14:58 09/16/22 14:20 09/16/22 14:26 09/16/22 14:20 09/14/22 12:43 FiO2 30 09/16/22 02:50 Oxygen Flow Rate (L/min) 8 Oxygen Delivery Method Trach Collar Weight: 130.9 kg Body Mass Index (BMI) 40.2 Intake & Output: Intake and Output for Last 24 Hours 09/14/22 09/15/22 09/16/22 23:59 23:59 23:59 Intake Total 685 / 685 700 / 700 970 / 970 Output Total 1400 / 1400 300 / 300 350 / 350 Balance -715 / -715 400 / 400 620 / 620 Lab / Micro Data Attestation: I reviewed the patient's lab results. 09/16/22 06:34 09/16/22 06:34 Labs: Laboratory Results - last 24 hr 09/15/22 21:46: POC Glucose 165 H 09/16/22 06:34: WBC 6.4, RBC 2.62 L, Hgb 7.2 L, Hct 23.5 L, MCV 89.7, MCH 27.5, MCHC 30.6 L, RDW Std Deviation 44.3 H, RDW Coeff of Alisson 13.4, Plt Count 319, MPV 9.1, Immature Gran % (Auto) 0.300, Neut % (Auto) 72.9 H, Lymph % (Auto) 9.1 L, [place] % (Auto) 14.1 H, Eos % (Auto) 3.3, Baso % (Auto) 0.3, Absolute Neuts (auto) 4.7, Absolute Lymphs (auto) 0.58 L, Nucleated RBC % 0, Differential Comment COMMENT, Sodium 133 L, Potassium 4.2, Chloride 100, Carbon Dioxide 28.0, Anion Gap 5, BUN 47 H, Creatinine 2.04 H, Estim Creat Clear Calc 37.42, Est GFR (MDRD) Af Amer 42 L, Est GFR (MDRD) Non-Af 35 L, BUN/Creatinine Ratio 23.0 H, Glucose 147 H, Calcium 7.5 L 09/16/22 06:46: POC Glucose 161 H 09/16/22 11:18: POC Glucose 143 H 09/16/22 16:27: POC Glucose 145 H Micro: Microbiology 09/12/22 23:05 Sputum, Tracheal Aspirate Gram Stain - Final 09/12/22 23:05 Sputum, Tracheal Aspirate Respiratory Culture - Final Hafnia alvei Pseudomonas aeruginosa Serratia marcescens Beta streptococcus 09/12/22 17:22 Blood Culture (Wb) - Anticubital Right Blood Culture - Preliminary No growth in 48 hours. 09/12/22 16:58 Blood Culture (Wb) - Anticubital Right Blood Culture - Preliminary No growth in 48 hours. 09/12/22 23:10 Mucosa - Nasopharyngeal Respiratory Panel (PCR) - Final 09/12/22 16:50 Nasal Secretion SARS-CoV-2 & FLU Antigen (Rapid) - Final 09/12/22 22:40 Urine, Clean Catch Streptococcus pneumoniae Antigen (M - Final 09/12/22 22:40 Urine, Clean Catch Legionella Antigen - Final Physical Exam Const alert, oriented x3 and no apparent distress Constitutional Narrative: Pleasant male, obese, sitting comfortably in bedside chair, conversing normally, no acute distress. General Appearance: cooperative and comfortable HEENT normocephalic, head/scalp atraumatic, hearing grossly normal bilaterally, nasal mucous membranes and turbinates normal and moist oral mucous membranes HEENT Narrative: Tracheostomy in place, site appears clean and dry. Eyes PERRL, EOMs intact bilaterally and conjunctivae normal Neck full ROM and supple Chest inspection of chest normal Resp normal respiratory effort, normal air movement, no use of accessory muscles and clear to auscultation bilaterally Resp Narrative: On 8 L via trach mask on exam. No increased work of breathing noted. Cardio regular rate, regular rhythm, no murmurs and peripheral pulses 2+ throughout GI normal to inspection, nondistended, normoactive bowel sounds, soft to palpation, non-tender and non-distended Back/Spine normal ROM Extremity normal to inspection, full ROM and no pedal edema Skin no rashes or lesions noted Psych mental status grossly normal Assessment & Plan Assessment/Plan (1) Congestive heart failure: PLAN: Plan Patient is a 67-year-old male with past medical history significant for HFpEF, laryngeal carcinoma status post tracheostomy in 2007, chronic hypoxemic and hypercarbic respiratory failure, obesity, insulin-dependent type 2 diabetes, hypertension, CKD stage III, paroxysmal A-fib, and hypothyroidism who presented to the [facility] ED on 09/12 with worsening dyspnea. 1. Acute on chronic HFpEF ?Echo 09/12 showed EF 65%, RA mildly enlarged, LA moderately enlarged suggestive of HFpEF. Home medications are Lasix 40 mg daily, Cardizem 120 mg twice daily, lisinopril 5 mg daily, spironolactone 25 mg daily. Started on IV Lasix on admission with some diuresis. Was also given a dose of metolazone on 09/14. Developed an ALEJANDRA on 09/15 and diuretics were discontinued. Nephrology following as below. Continue to hold diuretics for now. Patient notably continues to have a moderate amount of lower extremity swelling, but according to family mem bers this has been present for quite a while. We will continue to monitor closely. 2. Pneumonia -Sputum culture positive for Pseudomonas, Hafnia, Serratia and strep. Initially on IV Zosyn. ID following. Changed to meropenem on 09/15 to cover the Hafnia. Continue IV meropenem for now, appreciate ID recs. 3. Chronic left-sided pleural effusion -Pulmonology evaluated 09/16. Noted that patient has been followed in the past by pulmonology for this chronic left-sided pleural effusion. Has typically been transudative with previous thoracenteses and felt secondary to heart failure. Had Pleurx catheter placed in April that was recently removed. Pulmonology recommends no additional intervention at this time. No indication for tube thoracotomy. We will continue antimicrobials per ID recommendations as above. 4. Chronic respiratory failure, tracheostomy status -Tracheostomy in place since 2007 posttreatment for laryngeal cancer as noted below. Has baseline oxygen requirement of 4 L. Per pulmonology evaluation on 09/16, appears to be about at his baseline from a respiratory perspective. Continue home bronchodilators. ID management as above. 5. ALEJANDRA on CKD stage III -Nephrology following. Suspect prerenal ALEJANDRA due to cardiorenal syndrome in setting of overdiuresis. Baseline creatinine appears to be around 1.1-1.3. Creat 1.3 on 09/14, then increased to 2.3 on 09/15. Diuretics held at that time. Creatinine improved to 2.04 on 09/16. Continue to hold diuretics. Monitor daily BMP. 6. Insulin-dependent type 2 diabetes -Home meds are Levemir 20 units at night, aspart 12 units 3 times daily AC, Trulicity 4.5 mg weekly. Continue long-acting insulin with dose reduction along with sliding scale insulin. Monitor. 7. Anemia -Baseline hemoglobin around 7-9. Hemoglobin stable around 7.2 for last few days. No signs of bleeding. Monitor. 8. Paroxysmal A-fib -Continue home Eliquis. DVT prophylaxis: Eliquis CODE STATUS: Full code, verified Expected disposition: Home, 2 to 3 days Total clinical time spent by myself addressing the patient's medical issues, reviewing all the data, and collaborating with patient's care team: 35 minutes. Charges/Coding Visit Charges Inpatient E&M: 86971 Subs Hosp L2
[2022-09-16] MEDS: Insulin Glargine-YFGN 100 UNIT/ML Pen 20 UNIT SC (20:57)
[2022-09-16 22:40] LABS: Bedside Glucose 148 mg/dL (74-106)
[2022-09-17] VITALS (8 sets, daily range): BP systolic 113–136; BP diastolic 65–74; PULSE 87–101; RESP 18–22; TEMP 36.6–37.3; O2SAT 93–100; BMI 40.9
[2022-09-17] MEDS: Albuterol 2.5 MG/3 ML VIAL.NEB. INHALATION (03:00)
[2022-09-17 05:57] LABS: Anion Gap 5 (5-15); BUN 43 mg/dL (7-18); BUN/Creat Ratio 26.1 RATIO (10-20); Calcium,Total 8.3 mg/dL (8.5-10.1); Chloride 100 mmol/L (98-107); Creatinine, Serum 1.65 mg/dL (0.70-1.30); EST Glomerular Filtration Rate 44 mL/min (>60); Est Glom Filt Rate - Afr Amer 54 mL/min (>60); Estimated Creatinine Clearance 46.27 ml/min; Glucose 123 mg/dL (74-106); Potassium 4.4 mmol/L (3.5-5.1); Sodium Level 131 mmol/L (136-145)
[2022-09-17] MEDS: Levothyroxine 150 MCG Tablet PO (06:26)
[2022-09-17 06:52] LABS: Bedside Glucose 112 mg/dL (74-106)
[2022-09-17] MEDS: Ipratropium/Albuterol Sulfate 3 ML AMPUL.NEB INHALATION ×4 (06:57→19:47)
[2022-09-17] MEDS: dilTIAZem CD 120 MG Capsule PO ×2 (09:44→21:05)
[2022-09-17] MEDS: Pantoprazole Sodium 20 MG Tablet PO (09:44)
[2022-09-17] MEDS: APIXABAN 5 MG TABLET PO ×2 (09:44→21:05)
[2022-09-17] MEDS: Aspirin E.C. 81 MG Tablet PO (09:44)
[2022-09-17] MEDS: Insulin Lispro 100 UNIT/ML INSULN.PEN SC ×2 (11:32→21:08)
[2022-09-17] MEDS: Ferrous Sulfate 325 MG Tablet PO (11:32)
[2022-09-17 11:59] LABS: Bedside Glucose 164 mg/dL (74-106)
--- NOTE | 2022-09-17 13:00 | PN.HOSP_ITS ---
Reason for Visit Reason for Visit: Diagnoses Acute on chronic diastolic (congestive) heart failure (09/12/22) Heart failure, unspecified (09/12/22) Pneumonia, unspecified organism (09/12/22) Pleural effusion, not elsewhere classified (09/12/22) Acute kidney failure, unspecified (09/12/22) Subjective Subjective Seen at bedside. Sitting comfortably in bedside chair, no acute distress. Patient does report mildly increased work of breathing today. States he has more shortness of breath with walking to the bathroom. Notes that his oxygen saturations have been dropping with exertion. He otherwise reports decent intake of food. Denies any significant cough or sputum production. Denies any fevers or chills. No other acute concerns. Objective Data Objective Data Vital Signs: Vital Signs Temp Pulse Resp BP Pulse Ox O2 Del Method O2 Flow Rate 98.3 F 89 20 H 117/66 93 Trach Collar 8 09/17/22 09:00 09/17/22 11:05 09/17/22 11:05 09/17/22 09:00 09/17/22 11:32 09/17/22 09:00 09/17/22 11:32 FiO2 30 09/17/22 03:00 Oxygen Flow Rate (L/min) 8 Oxygen Delivery Method Trach Collar Weight: 133.3 kg Body Mass Index (BMI) 40.9 Intake & Output: Intake and Output for Last 24 Hours 09/15/22 09/16/22 09/17/22 23:59 23:59 23:59 Intake Total 700 / 700 970 / 1070 460 / 460 Output Total 300 / 300 350 / 350 Balance 400 / 400 620 / 720 460 / 460 Lab / Micro Data Attestation: I reviewed the patient's lab results. 09/16/22 06:34 09/17/22 04:54 Labs: Laboratory Results - last 24 hr 09/16/22 16:27: POC Glucose 145 H 09/16/22 20:53: POC Glucose 148 H 09/17/22 04:54: Sodium 131 L, Potassium 4.4, Chloride 100, Carbon Dioxide 26.0, Anion Gap 5, BUN 43 H, Creatinine 1.65 H, Estim Creat Clear Calc 46.27, Est GFR (MDRD) Af Amer 54 L, Est GFR (MDRD) Non-Af 44 L, BUN/Creatinine Ratio 26.1 H, Glucose 123 H, Calcium 8.3 L 09/17/22 06:25: POC Glucose 112 H 09/17/22 11:31: POC Glucose 164 H Micro: Microbiology 09/12/22 23:05 Sputum, Tracheal Aspirate Gram Stain - Final 09/12/22 23:05 Sputum, Tracheal Aspirate Respiratory Culture - Final Hafnia alvei Pseudomonas aeruginosa Serratia marcescens Beta streptococcus 09/12/22 17:22 Blood Culture (Wb) - Anticubital Right Blood Culture - Preliminary No growth in 48 hours. 09/12/22 16:58 Blood Culture (Wb) - Anticubital Right Blood Culture - Preliminary No growth in 48 hours. 09/12/22 23:10 Mucosa - Nasopharyngeal Respiratory Panel (PCR) - Final 09/12/22 16:50 Nasal Secretion SARS-CoV-2 & FLU Antigen (Rapid) - Final 09/12/22 22:40 Urine, Clean Catch Streptococcus pneumoniae Antigen (M - Final 09/12/22 22:40 Urine, Clean Catch Legionella Antigen - Final Physical Exam Const alert, oriented x3 and no apparent distress Constitutional Narrative: Pleasant male, obese, sitting comfortably in bedside chair, conversing normally, no acute distress. General Appearance: cooperative and comfortable HEENT normocephalic, head/scalp atraumatic, hearing grossly normal bilaterally, nasal mucous membranes and turbinates normal and moist oral mucous membranes HEENT Narrative: Tracheostomy in place, site appears clean and dry. Eyes PERRL, EOMs intact bilaterally and conjunctivae normal Neck full ROM and supple Chest inspection of chest normal Resp normal respiratory effort, normal air movement, no use of accessory muscles and clear to auscultation bilaterally Resp Narrative: On 8 L via trach mask on exam. No increased work of breathing noted. Cardio regular rate, regular rhythm, no murmurs and peripheral pulses 2+ throughout GI normal to inspection, nondistended, normoactive bowel sounds, soft to palpation, non-tender and non-distended Back/Spine normal ROM Extremity normal to inspection, full ROM and no pedal edema Skin no rashes or lesions noted Psych mental status grossly normal Assessment & Plan Assessment/Plan (1) Pneumonia: PLAN: Plan Patient is a 67-year-old male with past medical history significant for HFpEF, laryngeal carcinoma status post tracheostomy in 2007, chronic hypoxemic and hypercarbic respiratory failure, obesity, insulin-dependent type 2 diabetes, hypertension, CKD stage III, paroxysmal A-fib, and hypothyroidism who presented to the [facility] ED on 09/12 with worsening dyspnea. 1. Acute on chronic HFpEF ?Echo 09/12 showed EF 65%, RA mildly enlarged, LA moderately enlarged suggestive of HFpEF. Home medications are Lasix 40 mg daily, Cardizem 120 mg twice daily, lisinopril 5 mg daily, spironolactone 25 mg daily. Started on IV Lasix on admission with some diuresis. Was also given a dose of metolazone on 09/14. Developed an ALEJANDRA on 09/15 and diuretics were discontinued. Nephrology following as below. We will restart home diuretics today as patient reports worsening dyspnea on exertion and is requiring slightly more oxygen today. Monitor BMP. 2. Pneumonia -Sputum culture positive for Pseudomonas, Hafnia, Serratia and strep. Initially on IV Zosyn. ID following. Changed to meropenem on 09/15 to cover Hafnia. Continue IV meropenem for now, will discuss with ID on possibility of changing to p.o. regimen on discharge. 3. Chronic left-sided pleural effusion -Pulmonology evaluated 09/16. Noted that patient has been followed in the past by pulmonology for this chronic left-sided pleural effusion. Has typically been transudative with previous thoracenteses and felt secondary to heart failure. Had Pleurx catheter placed in April that was recently removed. Pulmonology recommends no additional intervention at this time. No indication for tube thoracotomy. We will continue antimicrobials per ID recommendations as above. 4. Chronic respiratory failure, tracheostomy status -Tracheostomy in place since 2007 posttreatment for laryngeal cancer. Has baseline oxygen requirement of 4 L. Per pulmonology evaluation on 09/16, appears to be about at his baseline from a respiratory perspective. Continue home bronchodilators. ID management as above. 5. ALEJANDRA on CKD stage III -Nephrology following. Suspect prerenal ALEJANDRA due to cardiorenal syndrome in setting of overdiuresis. Baseline creatinine appears to be around 1.1-1.3. Creat 1.3 on 09/14, then increased to 2.3 on 09/15. Diuretics held at that time. Creatinine improved to 1.6 on 09/17. Restarting home diuretics today as noted above, will monitor renal function closely. 6. Insulin-dependent type 2 diabetes -Home meds are Levemir 20 units at night, aspart 12 units 3 times daily AC, Trulicity 4.5 mg weekly. Continue long-acting insulin along with sliding scale insulin. Monitor. 7. Anemia -Baseline hemoglobin around 7-9. Hemoglobin stable around 7.2 for last few days. No signs of bleeding. Monitor. 8. Paroxysmal A-fib -Continue home Eliquis. DVT prophylaxis: Eliquis CODE STATUS: Full code, verified Expected disposition: Home, 1 to 2 days Total clinical time spent by myself addressing the patient's medical issues, reviewing all the data, and collaborating with patient's care team: 35 minutes. Charges/Coding Visit Charges Inpatient E&M: 81334 Subs Hosp L2
[2022-09-17] MEDS: Furosemide 40 MG Tablet PO (15:48)
[2022-09-17] MEDS: Spironolactone 25 MG Tablet PO (15:48)
[2022-09-17] MEDS: Atorvastatin Calcium 40 MG Tablet PO (16:37)
[2022-09-17 17:29] LABS: Bedside Glucose 123 mg/dL (74-106)
[2022-09-17] MEDS: Insulin Glargine-YFGN 100 UNIT/ML Pen 20 UNIT SC (21:09)
[2022-09-17 21:34] LABS: Bedside Glucose 174 mg/dL (74-106)
[2022-09-17] MEDS: 0.9% Saline Lock 10 ML Syringe IV (21:35)
[2022-09-18] VITALS (11 sets, daily range): BP systolic 116–138; BP diastolic 61–97; PULSE 78–97; RESP 18–22; TEMP 36.6–37.1; O2SAT 94–98; BMI 41.1
[2022-09-18] MEDS: Ipratropium/Albuterol Sulfate 3 ML AMPUL.NEB INHALATION ×5 (03:55→21:46)
[2022-09-18] MEDS: 0.9% Saline Lock 10 ML Syringe IV (05:35)
[2022-09-18] MEDS: Levothyroxine 150 MCG Tablet PO (05:36)
[2022-09-18 06:44] LABS: Bedside Glucose 98 mg/dL (74-106)
[2022-09-18] MEDS: Ferrous Sulfate 325 MG Tablet PO (09:12)
[2022-09-18] MEDS: Pantoprazole Sodium 20 MG Tablet PO (09:12)
[2022-09-18] MEDS: dilTIAZem CD 120 MG Capsule PO ×2 (09:12→21:19)
[2022-09-18] MEDS: Aspirin E.C. 81 MG Tablet PO (09:13)
[2022-09-18] MEDS: APIXABAN 5 MG TABLET PO ×2 (09:13→21:19)
[2022-09-18] MEDS: Furosemide 40 MG Tablet PO ×2 (09:13→17:07)
[2022-09-18] MEDS: Acetaminophen 325 MG Tablet 650 MG PO ×2 (09:13→21:19)
[2022-09-18] MEDS: Spironolactone 25 MG Tablet PO (09:13)
--- NOTE | 2022-09-18 10:11 | PN.RENAL_ITS ---
Subjective Subjective Sitting in chair. No overnight events. Patient reports breathing has improved but states breathing is not back to baseline yet. Denies any nausea or vomiting. Objective Data Objective Data Vital Signs: Vital Signs Temp Pulse Resp BP Pulse Ox O2 Del Method O2 Flow Rate 97.8 F 84 18 126/61 H 95 Trach Collar 8 09/18/22 08:52 09/18/22 08:52 09/18/22 08:52 09/18/22 08:52 09/18/22 08:52 09/18/22 08:52 09/18/22 08:52 FiO2 30 09/18/22 07:49 Oxygen Flow Rate (L/min) 8 Oxygen Delivery Method Trach Collar Weight: 133.7 kg Body Mass Index (BMI) 41.1 Intake & Output: Intake and Output for Last 24 Hours 09/16/22 09/17/22 09/18/22 23:59 23:59 23:59 Intake Total 970 / 1070 940 / 940 299.9 / 299.9 Output Total 350 / 350 Balance 620 / 720 940 / 940 299.9 / 299.9 Lab / Micro Data 09/16/22 06:34 09/17/22 04:54 Labs: Laboratory Results - last 24 hr 09/17/22 11:31: POC Glucose 164 H 09/17/22 16:36: POC Glucose 123 H 09/17/22 21:07: POC Glucose 174 H 09/18/22 06:25: POC Glucose 98 Micro: Microbiology 09/12/22 16:58 Blood Culture (Wb) - Anticubital Right Blood Culture - Final No growth in 5 days. 09/12/22 17:22 Blood Culture (Wb) - Anticubital Right Blood Culture - Final No growth in 5 days. 09/12/22 23:05 Sputum, Tracheal Aspirate Gram Stain - Final 09/12/22 23:05 Sputum, Tracheal Aspirate Respiratory Culture - Final Hafnia alvei Pseudomonas aeruginosa Serratia marcescens Beta streptococcus 09/12/22 23:10 Mucosa - Nasopharyngeal Respiratory Panel (PCR) - Final 09/12/22 16:50 Nasal Secretion SARS-CoV-2 & FLU Antigen (Rapid) - Final 09/12/22 22:40 Urine, Clean Catch Streptococcus pneumoniae Antigen (M - Final 09/12/22 22:40 Urine, Clean Catch Legionella Antigen - Final Physical Exam Narrative Alert awake oriented x 3, no obvious distress s1s2 no murmurs lungs clear anteriorly, diminished breath sounds posterior bases. No wheezes, rhonchi or rales noted abdomen soft no organomegaly +edema bilateral lower legs. Bilateral legs wrapped Assessment & Plan Assessment/Plan (1) ALEJANDRA (acute kidney injury): PLAN: Plan - Acute renal failure superimposed on CKD stage IIIa; ALEJANDRA possibly from card iorenal syndrome physiology and low blood pressures with decreased renal perfusion. Evidence of elevated serum creatinine since 2016 and has fluctuating serum creatinine trends. Possible baseline creatinine now ranging around 1.3 to 1.6 mg/dL Serum creatinine 1.6 mg/dL on 09/12-->1.3mg/dL on 09/13, creatinine then went up to 2.32 mg/dL on 09/15 and diuretics put on hold at that time. Last labs checked yesterday serum creatinine 1.65 mg/dL. Restarted back on Lasix 40 mg daily and Aldactone 25 mg daily. Blood pressures were low but have now improved. Lisinopril is on hold. Will increase furosemide 40 mg twice daily (home diuretic regimen: Lasix 40 mg twice daily, Aldactone 25 mg daily and metolazone 2.5mg Sunday). Edema/anasarca. Has moderate amount of lower extremity edema which per patient has improved somewhat as of today. Chest x-ray showed predominantly left-sided effusion/infiltrates. He had a Pleurx catheter which was removed recently on the left side. Echo EF 65%, RA mildly enlarged. It is possible that edema in lower extremities is hydrostatic. UA negative for protein or blood. Increase lasix as above.
[2022-09-18 11:24] LABS: Bedside Glucose 142 mg/dL (74-106)
--- NOTE | 2022-09-18 13:32 | PCM.PN.ID ---
Physical Exam Narrative Feeling ok, no fever, some sputum, less dyspnea Const alert and no apparent distress Resp Auscultation: rhonchi Cardio regular rate and regular rhythm GI soft to palpation, non-tender and non-distended Skin no rashes or lesions noted ID ID: Route of nutrition/ use of supplements: [] Nutritional Intake: [] IV Site: [] Graf Catheter: [] Assessment & Plan Assessment/Plan (1) Pleural effusion, left: PLAN: Sputum cx here with hafnia, pseudomonas, serratia, and strep. Cont leigh ann. No oral options. Will order midline, leigh ann to stop 09/22/22. Wrote rx, d/w catalytic case operator Will follow (2) Pneumonia:
--- NOTE | 2022-09-18 14:02 | CASEMGMT ---
Discharge Planning HH list created and sent to RN CM. Aishwarya Esparza, Discharge Planning Asst.
--- NOTE | 2022-09-18 14:15 | CASEMGMT ---
ANUSHA EDGAR updated that patient will need IV ATBs at discharge. ANUSHA EDGAR in to discuss levels or care with patient. ANUSHA EDGAR discussed HHC and home ATBs with patient and . A list of HHC providers including quality and resource use data and consistent with the patient?s preferred geographical region, medical needs, and insurance network were provided from the [employer] Guide. Patient states he has no preferences for HHC or Infusion agency as he lives in a geographical difficult area for HHC. ANUSHA EDGAR updated discharge estate planning counselor to send referrals to multiple HHC agencies. CM will continue to follow this patient and plan for a safe discharge.
--- NOTE | 2022-09-18 14:47 | PCM.PN.HOSP ---
Reason for Visit Reason for Visit: Diagnoses Acute on chronic diastolic (congestive) heart failure (09/12/22) Heart failure, unspecified (09/12/22) Pneumonia, unspecified organism (09/12/22) Pleural effusion, not elsewhere classified (09/12/22) Acute kidney failure, unspecified (09/12/22) Subjective Subjective Patient seen at bedside this morning. Sitting comfortably in bedside chair, satting well on trach mask. Reports mildly less dyspnea with exertion after restarting home diuretics yesterday. Has been able to get up to go to the bathroom and come back with only mild dyspnea. He reports improvement in cough and sputum production. Denies any fevers or chills. No other acute concerns. Objective Data Objective Data Vital Signs: Vital Signs Temp Pulse Resp BP Pulse Ox O2 Del Method O2 Flow Rate 97.8 F 86 20 H 126/61 H 95 Trach Collar 8 09/18/22 08:52 09/18/22 11:18 09/18/22 11:18 09/18/22 08:52 09/18/22 13:00 09/18/22 13:55 09/18/22 13:55 FiO2 30 09/18/22 07:49 Oxygen Flow Rate (L/min) 8 Oxygen Delivery Method Trach Collar Weight: 133.7 kg Body Mass Index (BMI) 41.1 Intake & Output: Intake and Output for Last 24 Hours 09/16/22 09/17/22 09/18/22 23:59 23:59 23:59 Intake Total 970 / 1070 940 / 940 599.9 / 599.9 Output Total 350 / 350 Balance 620 / 720 940 / 940 599.9 / 599.9 Lab / Micro Data Attestation: I reviewed the patient's lab results. 09/16/22 06:34 09/17/22 04:54 Labs: Laboratory Results - last 24 hr 09/17/22 16:36: POC Glucose 123 H 09/17/22 21:07: POC Glucose 174 H 09/18/22 06:25: POC Glucose 98 09/18/22 11:04: POC Glucose 142 H Micro: Microbiology 09/12/22 16:58 Blood Culture (Wb) - Anticubital Right Blood Culture - Final No growth in 5 days. 09/12/22 17:22 Blood Culture (Wb) - Anticubital Right Blood Culture - Final No growth in 5 days. 09/12/22 23:05 Sputum, Tracheal Aspirate Gram Stain - Final 09/12/22 23:05 Sputum, Tracheal Aspirate Respiratory Culture - Final Hafnia alvei Pseudomonas aeruginosa Serratia marcescens Beta streptococcus 09/12/22 23:10 Mucosa - Nasopharyngeal Respiratory Panel (PCR) - Final 09/12/22 16:50 Nasal Secretion SARS-CoV-2 & FLU Antigen (Rapid) - Final 09/12/22 22:40 Urine, Clean Catch Streptococcus pneumoniae Antigen (M - Final 09/12/22 22:40 Urine, Clean Catch Legionella Antigen - Final Physical Exam Const alert, oriented x3 and no apparent distress Constitutional Narrative: Pleasant male, obese, sitting comfortably in bedside chair, no acute distress. Has difficulty with speaking for several sentences secondary to his tracheostomy, appears to be his baseline. General Appearance: cooperative and comfortable HEENT normocephalic, head/scalp atraumatic, hearing grossly normal bilaterally, nasal mucous membranes and turbinates normal and moist oral mucous membranes HEENT Narrative: Tracheostomy in place, site appears clean and dry. Eyes PERRL, EOMs intact bilaterally and conjunctivae normal Neck full ROM and supple Chest inspection of chest normal Resp normal respiratory effort, normal air movement, no use of accessory muscles and clear to auscultation bilaterally Resp Narrative: On 8 L via trach mask on exam, however this is heated humidified air; patient receiving closer to 4 to 5 L nasal cannula. No increased work of breathing noted. Cardio regular rate, regular rhythm, no murmurs and peripheral pulses 2+ throughout GI normal to inspection, nondistended, normoactive bowel sounds, soft to palpation, non-tender and non-distended Back/Spine normal ROM Extremity normal to inspection and full ROM Extremity Narrative: +2-3 pitting edema in lower extremities bilaterally up to his knees. Similar to previous days. Skin no rashes or lesions noted Psych mental status grossly normal Assessment & Plan Assessment/Plan (1) Pneumonia: PLAN: Plan Patient is a 67-year-old male with past medical history significant for HFpEF, laryngeal carcinoma status post tracheostomy in 2007, chronic hypoxemic and hypercarbic respiratory failure, obesity, insulin-dependent type 2 diabetes, hypertension, CKD stage III, paroxysmal A-fib, and hypothyroidism who presented to the [facility] ED on 09/12 with worsening dyspnea. 1. Acute on chronic HFpEF Echo 09/12 showed EF 65%, RA mildly enlarged, LA moderately enlarged suggestive of HFpEF. Home medications are Lasix 40 mg daily, Cardizem 120 mg twice daily, lisinopril 5 mg daily, spironolactone 25 mg daily. Started on IV Lasix on admission with some diuresis. Was also given a dose of metolazone on 09/14. Developed an ALEJANDRA on 09/15 and diuretics were discontinued. Nephrology following as below. Restarted home diuretics on 09/17 as patient was requiring slightly more oxygen, with some improvement in oxygenation and subjective improvement in dyspnea on exertion. -Continue home diuretics. Monitor BMP and urine output. 2. Pneumonia Sputum culture positive for Pseudomonas, Hafnia, Serratia and strep. Initially on IV Zosyn. ID following. Changed to meropenem on 09/15 to cover Hafnia. -Per ID, there are unfortunately no oral antibiotic options for patient. We will continue IV meropenem with stop date of 09/22. Midline ordered. Discussed with case management. 3. Chronic left-sided pleural effusion Pulmonology evaluated 09/16. Noted that patient has been followed in the past by pulmonology for this chronic left-sided pleural effusion. Has typically been transudative with previous thoracenteses and felt secondary to heart failure. Had Pleurx catheter placed in April that was recently removed. -Pulmonology recommends no intervention at this time. Continue antibiotics as above. 4. Chronic respiratory failure, tracheostomy status -Tracheostomy in place since 2007 posttreatment for laryngeal cancer. Has baseline oxygen requirement of 4 L. Per pulmonology evaluation on 09/16, appears to be about at his baseline from a respiratory perspective. Continue home bronchodilators. ID management as above. 5. ALEJANDRA on CKD stage III Nephrology following. Suspect prerenal ALEJANDRA due to cardiorenal syndrome in setting of overdiuresis. Baseline creatinine appears to be around 1.1-1.3. Creat 1.3 on 09/14, then increased to 2.3 on 09/15. Diuretics held at that time. Creatinine improved to 1.6 on 09/17. -Continue home diuretics (Lasix 40 mg twice daily, spironolactone 25 mg daily, metolazone 2.5 mg Sunday). Appreciate nephrology input. 6. Insulin-dependent type 2 diabetes -Home meds are Levemir 20 units at night, aspart 12 units 3 times daily AC, Trulicity 4.5 mg weekly. Continue long-acting insulin along with sliding scale insulin. Monitor. 7. Anemia -Baseline hemoglobin around 7-9. Hemoglobin stable around 7.2 for last few days. No signs of bleeding. Monitor. 8. Paroxysmal A-fib -Continue home Eliquis. DVT prophylaxis: Eliquis CODE STATUS: Full code, verified Expected disposition: Home, 2 to 3 days Total clinical time spent by myself addressing the patient's medical issues, reviewing all the data, and collaborating with patient's care team: 35 minutes. Charges/Coding Visit Charges Inpatient E&M: 58591 Subs Hosp L2
--- NOTE | 2022-09-18 14:54 | CASEMGMT ---
Discharge Planning HH referral sent via [facility] to [facility], [facility], [facility], [facility], [facility], [facility], and [facility]. Infusion referral sent via [facility] to [facility]. Aishwarya Esparza, Discharge Planning Asst.
--- NOTE | 2022-09-18 15:52 | CASEMGMT ---
Patient has a Healthcare Power of [place] (HCPOA) and Healthcare Living Will on file at [facility]. Patient's Manuela is his Healthcare Power of scrub nurse. Alessandra FLYNN
[2022-09-18] MEDS: Atorvastatin Calcium 40 MG Tablet PO (17:07)
[2022-09-18 17:27] LABS: Bedside Glucose 113 mg/dL (74-106)
[2022-09-18] MEDS: Insulin Glargine-YFGN 100 UNIT/ML Pen 20 UNIT SC (21:20)
[2022-09-18 22:13] LABS: Bedside Glucose 148 mg/dL (74-106)
[2022-09-19] VITALS (9 sets, daily range): BP systolic 112–144; BP diastolic 65–82; PULSE 60–93; RESP 16–20; TEMP 36.6–37.3; O2SAT 93–100; BMI 41.3
[2022-09-19] MEDS: Levothyroxine 150 MCG Tablet PO (05:12)
[2022-09-19] MEDS: Ipratropium/Albuterol Sulfate 3 ML AMPUL.NEB INHALATION ×4 (05:24→19:33)
[2022-09-19] MEDS: Acetaminophen 325 MG Tablet 650 MG PO ×2 (06:21→17:15)
[2022-09-19 06:55] LABS: Bedside Glucose 148 mg/dL (74-106)
[2022-09-19 07:10] LABS: Anion Gap 7 (5-15); BUN 39 mg/dL (7-18); BUN/Creat Ratio 26.2 RATIO (10-20); Calcium,Total 8.6 mg/dL (8.5-10.1); Chloride 101 mmol/L (98-107); Creatinine, Serum 1.49 mg/dL (0.70-1.30); EST Glomerular Filtration Rate 50 mL/min (>60); Est Glom Filt Rate - Afr Amer 60 mL/min (>60); Estimated Creatinine Clearance 51.24 ml/min; Glucose 142 mg/dL (74-106); Potassium 4.9 mmol/L (3.5-5.1); Sodium Level 133 mmol/L (136-145)
[2022-09-19] MEDS: dilTIAZem CD 120 MG Capsule PO ×2 (09:14→21:28)
[2022-09-19] MEDS: Furosemide 40 MG Tablet PO ×2 (09:14→17:15)
[2022-09-19] MEDS: Pantoprazole Sodium 20 MG Tablet PO (09:14)
[2022-09-19] MEDS: Spironolactone 25 MG Tablet PO (09:14)
[2022-09-19] MEDS: Aspirin E.C. 81 MG Tablet PO (09:14)
[2022-09-19] MEDS: Metolazone 2.5 MG Tablet PO (09:15)
[2022-09-19] MEDS: APIXABAN 5 MG TABLET PO ×2 (09:15→21:28)
[2022-09-19] MEDS: 0.9% Saline Lock 10 ML Syringe IV ×2 (09:18→13:53)
[2022-09-19 10:14] LABS: Hematocrit 25.1 % (40-54); Hemoglobin 7.9 g/dL (13.0-16.5); Mean Corp Hgb Conc 31.5 g/dL (32-36); Mean Corpuscular Hgb 27.6 pg (27.0-32.0); Mean Corpuscular Volume 87.8 fL (80-94); Mean Platelet Vol. 9.7 fl (6.2-12.0); Platelet Count 431 K/mm3 (150-450); RBC Distribution Width CV 13.2 % (11.6-14.6); RBC Distribution Width SD 42.5 fl (35.1-43.9); Red Blood Count 2.86 M/mm3 (4.6-6.2); White Blood Count 7.4 K/mm3 (4.4-11.0)
[2022-09-19] MEDS: Insulin Lispro 100 UNIT/ML INSULN.PEN SC (11:26)
[2022-09-19] MEDS: Ferrous Sulfate 325 MG Tablet PO (11:26)
[2022-09-19 11:47] LABS: Bedside Glucose 154 mg/dL (74-106)
--- NOTE | 2022-09-19 12:00 | CASEMGMT ---
Discharge Planning Patient has been declined by; [facility], [facility], [facility], [facility], [facility], [place], and [facility]. Referrals sent via [facility] to [facility], [facility], [facility], and [facility]. Aishwarya Esparza, Discharge Planning Asst.
[2022-09-19 16:58] LABS: Bedside Glucose 138 mg/dL (74-106)
--- NOTE | 2022-09-19 17:04 | PCM.PN.HOSP ---
Reason for Visit Reason for Visit: Diagnoses Acute on chronic diastolic (congestive) heart failure (09/12/22) Heart failure, unspecified (09/12/22) Pneumonia, unspecified organism (09/12/22) Pleural effusion, not elsewhere classified (09/12/22) Acute kidney failure, unspecified (09/12/22) Subjective Subjective Patient seen at bedside this morning, present. Patient sitting comfortably in bedside chair, conversing normally, no acute distress. Oxygen requirements are same as previous days. Patient reports mild improvement in volume overload since yesterday. He reports mild improvement in dyspnea on exertion since yesterday. We discussed that patient will need IV antibiotics until Sunday, and this may keep him in the hospital until then. He and were in agreement that they would be okay with patient having to remain in the hospital until then. They also would be okay with him going home, but would want to make sure that he has the appropriate services that he needs before going home. Patient denies any fevers or chills. Denies any chest pain or shortness of breath at rest. No other acute concerns. Objective Data Objective Data Vital Signs: Vital Signs Temp Pulse Resp BP Pulse Ox O2 Del Method O2 Flow Rate 98.5 F 60 18 132/79 H 100 Trach Collar 8 09/19/22 15:21 09/19/22 15:21 09/19/22 15:21 09/19/22 15:21 09/19/22 15:21 09/19/22 15:21 09/19/22 15:44 FiO2 30 09/19/22 15:21 Oxygen Flow Rate (L/min) 8 Oxygen Delivery Method Trach Collar Weight: 134.3 kg Body Mass Index (BMI) 41.3 Intake & Output: Intake and Output for Last 24 Hours 09/17/22 09/18/22 09/19/22 23:59 23:59 23:59 Intake Total 940 / 940 1449.9 / 1449.9 740 / 740 Balance 940 / 940 1449.9 / 1449.9 740 / 740 Lab / Micro Data Attestation: I reviewed the patient's lab results. 09/19/22 05:42 09/19/22 05:42 Labs: Laboratory Results - last 24 hr 09/18/22 17:06: POC Glucose 113 H 09/18/22 21:15: POC Glucose 148 H 09/19/22 05:42: WBC 7.4, RBC 2.86 L, Hgb 7.9 L, Hct 25.1 L, MCV 87.8, MCH 27.6, MCHC 31.5 L, RDW Std Deviation 42.5, RDW Coeff of Alisson 13.2, Plt Count 431, MPV 9.7, Sodium 133 L, Potassium 4.9, Chloride 101, Carbon Dioxide 25.0, Anion Gap 7, BUN 39 H, Creatinine 1.49 H, Estim Creat Clear Calc 51.24, Est GFR (MDRD) Af Amer 60, Est GFR (MDRD) Non-Af 50 L, BUN/Creatinine Ratio 26.2 H, Glucose 142 H, Calcium 8.6 09/19/22 06:25: POC Glucose 148 H 09/19/22 11:24: POC Glucose 154 H 09/19/22 16:40: POC Glucose 138 H Micro: Microbiology 09/12/22 16:58 Blood Culture (Wb) - Anticubital Right Blood Culture - Final No growth in 5 days. 09/12/22 17:22 Blood Culture (Wb) - Anticubital Right Blood Culture - Final No growth in 5 days. 09/12/22 23:05 Sputum, Tracheal Aspirate Gram Stain - Final 09/12/22 23:05 Sputum, Tracheal Aspirate Respiratory Culture - Final Hafnia alvei Pseudomonas aeruginosa Serratia marcescens Beta streptococcus 09/12/22 23:10 Mucosa - Nasopharyngeal Respiratory Panel (PCR) - Final 09/12/22 16:50 Nasal Secretion SARS-CoV-2 & FLU Antigen (Rapid) - Final 09/12/22 22:40 Urine, Clean Catch Streptococcus pneumoniae Antigen (M - Final 09/12/22 22:40 Urine, Clean Catch Legionella Antigen - Final Physical Exam Const alert, oriented x3 and no apparent distress Constitutional Narrative: Pleasant male, obese, sitting comfortably in bedside chair, no acute distress. Has difficulty with speaking for several sentences secondary to his tracheostomy, appears to be his baseline. General Appearance: cooperative and comfortable HEENT normocephalic, head/scalp atraumatic, hearing grossly normal bilaterally, nasal mucous membranes and turbinates normal and moist oral mucous membranes HEENT Narrative: Tracheostomy in place, site appears clean and dry. Eyes PERRL, EOMs intact bilaterally and conjunctivae normal Neck full ROM and supple Chest inspection of chest normal Resp normal respiratory effort, normal air movement, no use of accessory muscles and clear to auscultation bilaterally Resp Narrative: On 8 L via trach mask on exam, however this is heated humidified air; patient receiving closer to 4 to 5 L nasal cannula. No increased work of breathing noted. Cardio regular rate, regular rhythm, no murmurs and peripheral pulses 2+ throughout GI normal to inspection, nondistended, normoactive bowel sounds, soft to palpation, non-tender and non-distended Back/Spine normal ROM Extremity normal to inspection and full ROM Extremity Narrative: +2-3 pitting edema in lower extremities bilaterally up to his knees. Similar to previous days. Skin no rashes or lesions noted Psych mental status grossly normal Assessment & Plan Assessment/Plan (1) Pneumonia: PLAN: Plan Patient is a 67-year-old male with past medical history significant for HFpEF, laryngeal carcinoma status post tracheostomy in 2007, chronic hypoxemic and hypercarbic respiratory failure, obesity, insulin-dependent type 2 diabetes, hypertension, CKD stage III, paroxysmal A-fib, and hypothyroidism who presented to the [facility] ED on 09/12 with worsening dyspnea. 1. Acute on chronic HFpEF Echo 09/12 showed EF 65%, RA mildly enlarged, LA moderately enlarged suggestive of HFpEF. Home medications are Lasix 40 mg daily, Cardizem 120 mg twice daily, lisinopril 5 mg daily, spironolactone 25 mg daily. Started on IV Lasix on admission with some diuresis. Was also given a dose of metolazone on 09/14. Developed an ALEJANDRA on 09/15 and diuretics were discontinued. Nephrology following as below. Restarted home diuretics on 09/17 as patient was requiring slightly more oxygen, with some improvement in oxygenation and subjective improvement in dyspnea on exertion. -Gave 1 dose of metolazone 2.5 mg today. Per chart, takes metolazone Sunday and Sunday and has not had a dose since 09/14. We will continue home Lasix and spironolactone. Monitor daily BMP. Appreciate nephrology input. 2. Pneumonia Sputum culture positive for Pseudomonas, Hafnia, Serratia and strep. Initially on IV Zosyn. ID following. Changed to meropenem on 09/15 to cover Hafnia. -Per ID, there are unfortunately no oral antibiotic options for patient. We will continue IV meropenem with stop date of 09/22. Midline ordered. Discussed with case management and working a possible discharge options for him. 3. Chronic left-sided pleural effusion Pulmonology evaluated 09/16. Noted that patient has been followed in the past by pulmonology for this chronic left-sided pleural effusion. Has typically been transudative with previous thoracenteses and felt secondary to heart failure. Had Pleurx catheter placed in April that was recently removed. -Pulmonology recommends no intervention at this time. Continue antibiotics as above. 4. Chronic respiratory failure, tracheostomy status -Tracheostomy in place since 2007 posttreatment for laryngeal cancer. Has baseline oxygen requirement of 4 L. Per pulmonology evaluation on 09/16, appears to be about at his baseline from a respiratory perspective. Continue home bronchodilators. ID management as above. 5. ALEJANDRA on CKD stage III Nephrology following. Suspect prerenal ALEJANDRA due to cardiorenal syndrome in setting of overdiuresis. Baseline creatinine appears to be around 1.1-1.3. Creat 1.3 on 09/14, then increased to 2.3 on 09/15. Diuretics held at that time. Creatinine improved to 1.6 on 09/17. -Continue home Lasix and spironolactone with intermittent dosing of metolazone as noted above. Appreciate nephrology input. 6. Insulin-dependent type 2 diabetes -Home meds are Levemir 20 units at night, aspart 12 units 3 times daily AC, Trulicity 4.5 mg weekly. Continue long-acting insulin along with sliding scale insulin. Monitor. 7. Anemia -Baseline hemoglobin around 7-9. Hemoglobin stable around 7.2 for last few days. No signs of bleeding. Monitor. 8. Paroxysmal A-fib -Continue home Eliquis. DVT prophylaxis: Eliquis CODE STATUS: Full code, verified Expected disposition: Home, 2 to 3 days Total clinical time spent by myself addressing the patient's medical issues, reviewing all the data, and collaborating with patient's care team: 35 minutes. Charges/Coding Visit Charges Inpatient E&M: 09688 Subs Hosp L2
[2022-09-19] MEDS: Atorvastatin Calcium 40 MG Tablet PO (17:15)
[2022-09-19] MEDS: Insulin Glargine-YFGN 100 UNIT/ML Pen 20 UNIT SC (21:28)
[2022-09-19 23:04] LABS: Bedside Glucose 149 mg/dL (74-106)
[2022-09-20] VITALS (15 sets, daily range): BP systolic 113–132; BP diastolic 60–76; PULSE 72–106; RESP 14–26; TEMP 36.4–37.2; O2SAT 92–100; BMI 41.2
[2022-09-20] MEDS: Ipratropium/Albuterol Sulfate 3 ML AMPUL.NEB INHALATION ×5 (02:04→18:55)
[2022-09-20] MEDS: Levothyroxine 150 MCG Tablet PO (05:21)
[2022-09-20 07:32] LABS: Bedside Glucose 114 mg/dL (74-106)
[2022-09-20] MEDS: Ferrous Sulfate 325 MG Tablet PO (09:45)
[2022-09-20] MEDS: APIXABAN 5 MG TABLET PO ×2 (09:45→20:23)
[2022-09-20] MEDS: Pantoprazole Sodium 20 MG Tablet PO (09:45)
[2022-09-20] MEDS: Acetaminophen 325 MG Tablet 650 MG PO (09:46)
[2022-09-20] MEDS: Aspirin E.C. 81 MG Tablet PO (09:46)
[2022-09-20] MEDS: Furosemide 40 MG Tablet PO ×2 (09:46→17:27)
[2022-09-20] MEDS: dilTIAZem CD 120 MG Capsule PO ×2 (09:46→20:22)
[2022-09-20] MEDS: Spironolactone 25 MG Tablet PO (09:47)
[2022-09-20 11:59] LABS: Bedside Glucose 114 mg/dL (74-106)
--- NOTE | 2022-09-20 12:04 | PCM.PN.REN ---
Subjective Subjective pt well known to me with CKD stage 3 baseline creatinine 1.7 on diuretics increased to 2.3 on 09/15 improved to 1.49 today. Edema improved on diuretics. Treated for pneumonia with iv antibx managed by ID. He has a history of laryngeal cancer s/p trach. 2 weeks ago had his chest tube removed by CT surgeon at [place]. CXR on admit with persistent left pleural effusion. He failed to f/u in the office with me on 08/10/22. Objective Data Objective Data Vital Signs: Vital Signs Temp Pulse Resp BP Pulse Ox O2 Del Method O2 Flow Rate 98.9 F 90 18 126/72 H 92 Trach Collar 8 09/20/22 08:45 09/20/22 08:45 09/20/22 08:45 09/20/22 08:45 09/20/22 09:17 09/20/22 09:18 09/20/22 09:18 FiO2 30 09/20/22 09:18 Oxygen Flow Rate (L/min) 8 Oxygen Delivery Method Trach Collar Weight: 134.1 kg Body Mass Index (BMI) 41.2 Intake & Output: Intake and Output for Last 24 Hours 09/18/22 09/19/22 09/20/22 23:59 23:59 23:59 Intake Total 1449.9 / 1449.9 1660 / 1660 490 / 490 Balance 1449.9 / 1449.9 1660 / 1660 490 / 490 Lab / Micro Data 09/19/22 05:42 09/19/22 05:42 Labs: Laboratory Results - last 24 hr 09/19/22 16:40: POC Glucose 138 H 09/19/22 21:26: POC Glucose 149 H 09/20/22 06:28: POC Glucose 114 H 09/20/22 11:42: POC Glucose 114 H Micro: Microbiology 09/12/22 16:58 Blood Culture (Wb) - Anticubital Right Blood Culture - Final No growth in 5 days. 09/12/22 17:22 Blood Culture (Wb) - Anticubital Right Blood Culture - Final No growth in 5 days. 09/12/22 23:05 Sputum, Tracheal Aspirate Gram Stain - Final 09/12/22 23:05 Sputum, Tracheal Aspirate Respiratory Culture - Final Hafnia alvei Pseudomonas aeruginosa Serratia marcescens Beta streptococcus 09/12/22 23:10 Mucosa - Nasopharyngeal Respiratory Panel (PCR) - Final 09/12/22 16:50 Nasal Secretion SARS-CoV-2 & FLU Antigen (Rapid) - Final 09/12/22 22:40 Urine, Clean Catch Streptococcus pneumoniae Antigen (M - Final 09/12/22 22:40 Urine, Clean Catch Legionella Antigen - Final Physical Exam Const alert, oriented x3 and no apparent distress Resp clear to auscultation bilaterally Resp Narrative: trach collar with oxygen GI non-tender and non-distended GI Narrative: obese Auscultation: normoactive bowel sounds Palpation: soft Extremity General Extremity: edema bilateral lower extremity Neuro CN's II-XII intact bilaterally Sensorium / Orientation: awake and alert Psych cooperative Assessment & Plan Assessment/Plan (1) ALEJANDRA (acute kidney injury): PLAN: creatinine up to 2.3 improved to 1.49 likely hemodynamic changes. Currently on lasix, edema. urine volumes not recorded. Will need f/u in office in 2-4 wks after discharge (2) Stage 3a chronic kidney disease (CKD): PLAN: renal fxn at baseline (3) Pneumonia: PLAN: iv antibx per ID. Renal dose vancomycin (4) CHF exacerbation: QUALIFIERS: Heart failure type: diastolic Qualified Code(s): I50.33 - Acute on chronic diastolic (congestive) heart failure PLAN: continue lasix 40mg bid. May need to increase to 80mg bid if edema worsens. Monitor potassium while on on spironolactone. (5) Atrial fibrillation: (6) Obesity: QUALIFIERS: Body mass index: BMI 39.0-39.9 Obesity classification: adult class 2 (BMI 35 - 39.9) Obesity type: due to excess calories Serious obesity comorbidity presence: with serious comorbidity Qualified Code(s): E66.01 - Morbid (severe) obesity due to excess calories; Z68.39 - Body mass index [BMI] 39.0-39.9, adult (7) Diabetes: QUALIFIERS: Diabetes mellitus complication status: with hyperglycemia Diabetes mellitus intermediate card tender insulin use: with intermediate card tender use Diabetes mellitus type: type 2 Qualified Code(s): E11.65 - Type 2 diabetes mellitus with hyperglycemia; 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
--- NOTE | 2022-09-20 14:05 | PCM.PN.HOSP ---
Reason for Visit Reason for Visit: Diagnoses Acute on chronic diastolic (congestive) heart failure (09/12/22) Heart failure, unspecified (09/12/22) Pneumonia, unspecified organism (09/12/22) Pleural effusion, not elsewhere classified (09/12/22) Acute kidney failure, unspecified (09/12/22) Subjective Subjective Patient seen at bedside this morning, present. Patient sitting in bedside chair, conversing normally, no acute distress. He reports feeling similar to yesterday. Continues to have mild dyspnea with exertion but is overall significantly improved from admission. He has a mild productive cough, unchanged from yesterday. Denies any fevers or chills. Denies any other acute concerns. Objective Data Objective Data Vital Signs: Vital Signs Temp Pulse Resp BP Pulse Ox O2 Del Method O2 Flow Rate 97.6 F L 88 18 114/76 100 Trach Collar 8 09/20/22 12:30 09/20/22 12:30 09/20/22 12:30 09/20/22 12:30 09/20/22 12:30 09/20/22 12:30 09/20/22 12:30 FiO2 30 09/20/22 12:30 Oxygen Flow Rate (L/min) 8 Oxygen Delivery Method Trach Collar Weight: 134.1 kg Body Mass Index (BMI) 41.2 Intake & Output: Intake and Output for Last 24 Hours 09/18/22 09/19/22 09/20/22 23:59 23:59 23:59 Intake Total 1449.9 / 1449.9 1660 / 1660 490 / 490 Balance 1449.9 / 1449.9 1660 / 1660 490 / 490 Lab / Micro Data Attestation: I reviewed the patient's lab results. 09/19/22 05:42 09/19/22 05:42 Labs: Laboratory Results - last 24 hr 09/19/22 16:40: POC Glucose 138 H 09/19/22 21:26: POC Glucose 149 H 09/20/22 06:28: POC Glucose 114 H 09/20/22 11:42: POC Glucose 114 H Micro: Microbiology 09/12/22 16:58 Blood Culture (Wb) - Anticubital Right Blood Culture - Final No growth in 5 days. 09/12/22 17:22 Blood Culture (Wb) - Anticubital Right Blood Culture - Final No growth in 5 days. 09/12/22 23:05 Sputum, Tracheal Aspirate Gram Stain - Final 09/12/22 23:05 Sputum, Tracheal Aspirate Respiratory Culture - Final Hafnia alvei Pseudomonas aeruginosa Serratia marcescens Beta streptococcus 09/12/22 23:10 Mucosa - Nasopharyngeal Respiratory Panel (PCR) - Final 09/12/22 16:50 Nasal Secretion SARS-CoV-2 & FLU Antigen (Rapid) - Final 09/12/22 22:40 Urine, Clean Catch Streptococcus pneumoniae Antigen (M - Final 09/12/22 22:40 Urine, Clean Catch Legionella Antigen - Final Physical Exam Const alert, oriented x3 and no apparent distress Constitutional Narrative: Pleasant male, obese, sitting comfortably in bedside chair, no acute distress. Has difficulty with speaking for several sentences secondary to his tracheostomy, appears to be his baseline. General Appearance: cooperative and comfortable HEENT normocephalic, head/scalp atraumatic, hearing grossly normal bilaterally, nasal mucous membranes and turbinates normal and moist oral mucous membranes HEENT Narrative: Tracheostomy in place, site appears clean and dry. Eyes PERRL, EOMs intact bilaterally and conjunctivae normal Neck full ROM and supple Chest inspection of chest normal Resp normal respiratory effort, normal air movement, no use of accessory muscles and clear to auscultation bilaterally Resp Narrative: On 8 L via trach mask on exam, however this is heated humidified air; patient receiving closer to 4 to 5 L nasal cannula. No increased work of breathing noted. Cardio regular rate, regular rhythm, no murmurs and peripheral pulses 2+ throughout GI normal to inspection, nondistended, normoactive bowel sounds, soft to palpation, non-tender and non-distended Back/Spine normal ROM Extremity normal to inspection and full ROM Extremity Narrative: +2-3 pitting edema in lower extremities bilaterally up to his knees. Similar to previous days. Skin no rashes or lesions noted Psych mental status grossly normal Assessment & Plan Assessment/Plan (1) Pneumonia: PLAN: Plan Patient is a 67-year-old male with past medical history significant for HFpEF, laryngeal carcinoma status post tracheostomy in 2007, chronic hypoxemic and hypercarbic respiratory failure, obesity, insulin-dependent type 2 diabetes, hypertension, CKD stage III, paroxysmal A-fib, and hypothyroidism who presented to the [facility] ED on 09/12 with worsening dyspnea. 1. Acute on chronic HFpEF Echo 09/12 showed EF 65%, RA mildly enlarged, LA moderately enlarged suggestive of HFpEF. Home medications are Lasix 40 mg daily, Cardizem 120 mg twice daily, lisinopril 5 mg daily, spironolactone 25 mg daily. Started on IV Lasix on admission with some diuresis. Was also given a dose of metolazone on 09/14. Developed an ALEJANDRA on 09/15 and diuretics were discontinued. Nephrology following as below. Restarted home diuretics on 09/17 as patient was requiring slightly more oxygen, with some improvement in oxygenation and subjective improvement in dyspnea on exertion. ?Continue home Lasix and spironolactone. We will plan to give metolazone 2.5 mg starting again on Sunday, and then resume MWF scheduling. Monitor daily BMP. Appreciate nephrology input. 2. Pneumonia Sputum culture positive for Pseudomonas, Hafnia, Serratia and strep. Initially on IV Zosyn. ID following. Changed to meropenem on 09/15 to cover Hafnia. -Per ID, there are unfortunately no oral antibiotic options for patient. We will continue IV meropenem with stop date of 09/22. Midline ordered. Discussed with case management and working a possible discharge options for him. 3. Chronic left-sided pleural effusion Pulmonology evaluated 09/16. Noted that patient has been followed in the past by pulmonology for this chronic left-sided pleural effusion. Has typically been transudative with previous thoracenteses and felt secondary to heart failure. Had Pleurx catheter placed in April that was recently removed. -Pulmonology recommends no intervention at this time. Continue antibiotics as above. 4. Chronic respiratory failure, tracheostomy status -Tracheostomy in place since 2007 posttreatment for laryngeal cancer. Has baseline oxygen requirement of 4 L. Per pulmonology evaluation on 09/16, appears to be about at his baseline from a respiratory perspective. Continue home bronchodilators. ID management as above. 5. ALEJANDRA on CKD stage III Nephrology following. Suspect prerenal ALEJANDRA due to cardiorenal syndrome in setting of overdiuresis. Baseline creatinine appears to be around 1.1-1.3. Creat 1.3 on 09/14, then increased to 2.3 on 09/15. Diuretics held at that time. Creatinine improved to 1.6 on 09/17. -Continue home Lasix and spironolactone with intermittent dosing of metolazone as noted above. Appreciate nephrology input. 6. Insulin-dependent type 2 diabetes -Home meds are Levemir 20 units at night, aspart 12 units 3 times daily AC, Trulicity 4.5 mg weekly. Continue long-acting insulin along with sliding scale insulin. Monitor. 7. Anemia -Baseline hemoglobin around 7-9. Hemoglobin stable around 7.2 for last few days. No signs of bleeding. Monitor. 8. Paroxysmal A-fib -Continue home Eliquis. DVT prophylaxis: Eliquis CODE STATUS: Full code, verified Expected disposition: Home, 2 to 3 days Total clinical time spent by myself addressing the patient's medical issues, reviewing all the data, and collaborating with patient's care team: 35 minutes. Charges/Coding Visit Charges Inpatient E&M: 09332 Subs Hosp L2
--- NOTE | 2022-09-20 16:38 | CASEMGMT ---
Discharge Planning Patient has been declined by; [facility] (staffing), [facility] (not able to start care until after IV stop date), [facility] (will not do IV's for pts insurance provider), [facility] (out of service area), [facility] (no reason given), [facility] (out of service area), [facility] (inadequate RN coverage), [facility] (out of service area), [facility] (out of service area), [facility] (do not do IV), [facility] (doesn't provide SN). RN CM updated. Aishwarya Esparza, Discharge Planning Asst.
[2022-09-20] MEDS: Atorvastatin Calcium 40 MG Tablet PO (17:27)
[2022-09-20 18:01] LABS: Bedside Glucose 152 mg/dL (74-106)
[2022-09-20] MEDS: Insulin Glargine-YFGN 100 UNIT/ML Pen 20 UNIT SC (20:34)
[2022-09-21] VITALS (11 sets, daily range): BP systolic 103–130; BP diastolic 54–80; PULSE 86–110; RESP 14–32; TEMP 36.6–36.9; O2SAT 93–99; BMI 41.4
[2022-09-21 00:58] LABS: Bedside Glucose 118 mg/dL (74-106)
[2022-09-21] MEDS: Albuterol 2.5 MG/3 ML VIAL.NEB. INHALATION (01:29)
[2022-09-21] MEDS: Levothyroxine 150 MCG Tablet PO (05:33)
[2022-09-21] MEDS: Ipratropium/Albuterol Sulfate 3 ML AMPUL.NEB INHALATION ×4 (06:38→19:07)
[2022-09-21] MEDS: Spironolactone 25 MG Tablet PO (08:16)
[2022-09-21] MEDS: APIXABAN 5 MG TABLET PO ×2 (08:16→22:45)
[2022-09-21] MEDS: Aspirin E.C. 81 MG Tablet PO (08:16)
[2022-09-21] MEDS: dilTIAZem CD 120 MG Capsule PO ×2 (08:16→22:45)
[2022-09-21] MEDS: Pantoprazole Sodium 20 MG Tablet PO (08:16)
[2022-09-21] MEDS: Furosemide 40 MG Tablet PO ×2 (08:16→17:37)
[2022-09-21] MEDS: Ferrous Sulfate 325 MG Tablet PO (11:49)
[2022-09-21 12:09] LABS: Bedside Glucose 128 mg/dL (74-106)
--- NOTE | 2022-09-21 14:04 | PN.HOSP_ITS ---
Reason for Visit Reason for Visit: Diagnoses Acute on chronic diastolic (congestive) heart failure (09/12/22) Heart failure, unspecified (09/12/22) Pneumonia, unspecified organism (09/12/22) Pleural effusion, not elsewhere classified (09/12/22) Acute kidney failure, unspecified (09/12/22) Subjective Subjective Patient seen at bedside this morning. Patient sitting comfortably in bedside chair, conversing normally, no acute distress. He reports feeling the same as yesterday. Continues to feel less dyspneic with exertion. Continues to have a mild cough but this has not worsened. He denies any acute pain or discomfort. Denies any other acute concerns. Objective Data Objective Data Vital Signs: Vital Signs Temp Pulse Resp BP Pulse Ox O2 Del Method O2 Flow Rate 98.5 F 96 20 H 124/76 H 93 Trach Collar 6 09/21/22 08:10 09/21/22 10:33 09/21/22 10:33 09/21/22 08:10 09/21/22 10:03 09/21/22 08:10 09/21/22 10:03 FiO2 30 09/21/22 08:10 Oxygen Flow Rate (L/min) 6 Oxygen Delivery Method Trach Collar Weight: 134.7 kg Body Mass Index (BMI) 41.4 Intake & Output: Intake and Output for Last 24 Hours 09/19/22 09/20/22 09/21/22 23:59 23:59 23:59 Intake Total 1660 / 1660 1270 / 1670 1200 / 1200 Balance 1660 / 1660 1270 / 1670 1200 / 1200 Lab / Micro Data Attestation: I reviewed the patient's lab results. 09/19/22 05:42 09/19/22 05:42 Labs: Laboratory Results - last 24 hr 09/20/22 17:18: POC Glucose 152 H 09/20/22 20:33: POC Glucose 118 H 09/21/22 11:48: POC Glucose 128 H Micro: Microbiology 09/12/22 16:58 Blood Culture (Wb) - Anticubital Right Blood Culture - Final No growth in 5 days. 09/12/22 17:22 Blood Culture (Wb) - Anticubital Right Blood Culture - Final No growth in 5 days. 09/12/22 23:05 Sputum, Tracheal Aspirate Gram Stain - Final 09/12/22 23:05 Sputum, Tracheal Aspirate Respiratory Culture - Final Hafnia alvei Pseudomonas aeruginosa Serratia marcescens Beta streptococcus 09/12/22 23:10 Mucosa - Nasopharyngeal Respiratory Panel (PCR) - Final 09/12/22 16:50 Nasal Secretion SARS-CoV-2 & FLU Antigen (Rapid) - Final 09/12/22 22:40 Urine, Clean Catch Streptococcus pneumoniae Antigen (M - Final 09/12/22 22:40 Urine, Clean Catch Legionella Antigen - Final Physical Exam Const alert, oriented x3 and no apparent distress Constitutional Narrative: Pleasant male, obese, sitting comfortably in bedside chair, no acute distress. Has difficulty with speaking for several sentences secondary to his tracheostomy, appears to be his baseline. General Appearance: cooperative and comfortable HEENT normocephalic, head/scalp atraumatic, hearing grossly normal bilaterally, nasal mucous membranes and turbinates normal and moist oral mucous membranes HEENT Narrative: Tracheostomy in place, site appears clean and dry. Eyes PERRL, EOMs intact bilaterally and conjunctivae normal Neck full ROM and supple Chest inspection of chest normal Resp normal respiratory effort, normal air movement, no use of accessory muscles and clear to auscultation bilaterally Resp Narrative: On 8 L via trach mask on exam, however this is heated humidified air; patient receiving closer to 4 to 5 L nasal cannula. No increased work of breathing noted. Cardio regular rate, regular rhythm, no murmurs and peripheral pulses 2+ throughout GI normal to inspection, nondistended, normoactive bowel sounds, soft to palpation, non-tender and non-distended Back/Spine normal ROM Extremity normal to inspection and full ROM Extremity Narrative: +2-3 pitting edema in lower extremities bilaterally up to his knees. Similar to previous days. Skin no rashes or lesions noted Psych mental status grossly normal Assessment & Plan Assessment/Plan (1) Pneumonia: PLAN: Plan Patient is a 67-year-old male with past medical history significant for HFpEF, laryngeal carcinoma status post tracheostomy in 2007, chronic hypoxemic and hypercarbic respiratory failure, obesity, insulin-dependent type 2 diabetes, hypertension, CKD stage III, paroxysmal A-fib, and hypothyroidism who presented to the [facility] ED on 09/12 with worsening dyspnea. 1. Acute on chronic HFpEF Echo 09/12 showed EF 65%, RA mildly enlarged, LA moderately enlarged suggestive of HFpEF. Home medications are Lasix 40 mg daily, Cardizem 120 mg twice daily, lisinopril 5 mg daily, spironolactone 25 mg daily. Started on IV Lasix on admission with some diuresis. Was also given a dose of metolazone on 09/14. Developed an ALEJANDRA on 09/15 and diuretics were discontinued. Nephrology following as below. Restarted home diuretics on 09/17 as patient was requiring slightly more oxygen, with some improvement in oxygenation and subjective improvement in dyspnea on exertion. ?Continue home Lasix and spironolactone. We will plan to give metolazone 2.5 mg starting again on Sunday, and then resume MWF scheduling. Monitor daily BMP. Appreciate nephrology input. 2. Pneumonia Sputum culture positive for Pseudomonas, Hafnia, Serratia and strep. Initially on IV Zosyn. ID following. Changed to meropenem on 09/15 to cover Hafnia. -Per ID, there are unfortunately no oral antibiotic options for patient. We will continue IV meropenem with stop date of 09/22. Midline ordered. Discussed with case management and working a possible discharge options for him. 3. Chronic left-sided pleural effusion Pulmonology evaluated 09/16. Noted that patient has been followed in the past by pulmonology for this chronic left-sided pleural effusion. Has typically been transudative with previous thoracenteses and felt secondary to heart failure. Had Pleurx catheter placed in April that was recently removed. -Pulmonology recommends no intervention at this time. Continue antibiotics as above. 4. Chronic respiratory failure, tracheostomy status -Tracheostomy in place since 2007 posttreatment for laryngeal cancer. Has baseline oxygen requirement of 4 L. Per pulmonology evaluation on 09/16, appears to be about at his baseline from a respiratory perspective. Continue home bronchodilators. ID management as above. 5. ALEJANDRA on CKD stage III Nephrology following. Suspect prerenal ALEJANDRA due to cardiorenal syndrome in setting of overdiuresis. Baseline creatinine appears to be around 1.1-1.3. Creat 1.3 on 09/14, then increased to 2.3 on 09/15. Diuretics held at that time. Creatinine improved to 1.6 on 09/17. -Continue home Lasix and spironolactone with intermittent dosing of metolazone as noted above. Appreciate nephrology input. 6. Insulin-dependent type 2 diabetes -Home meds are Levemir 20 units at night, aspart 12 units 3 times daily AC, Trulicity 4.5 mg weekly. Continue long-acting insulin along with sliding scale insulin. Monitor. 7. Anemia -Baseline hemoglobin around 7-9. Hemoglobin stable around 7.2 for last few days. No signs of bleeding. Monitor. 8. Paroxysmal A-fib -Continue home Eliquis. DVT prophylaxis: Eliquis CODE STATUS: Full code, verified Expected disposition: Home, tomorrow Total clinical time spent by myself addressing the patient's medical issues, reviewing all the data, and collaborating with patient's care team: 35 minutes. Charges/Coding Visit Charges Inpatient E&M: 01820 Subs Hosp L2
[2022-09-21] MEDS: 0.9% Saline Lock 10 ML Syringe IV (15:24)
[2022-09-21] MEDS: Furosemide 40 MG/4 ML Vial IV (15:24)
--- NOTE | 2022-09-21 16:05 | PN.RENAL_ITS ---
Subjective Subjective still with edema, no change in wt, no urine output measured. Less productive cough. Breathing stable Objective Data Objective Data Vital Signs: Vital Signs Temp Pulse Resp BP Pulse Ox O2 Del Method O2 Flow Rate 98.1 F 88 20 H 113/72 95 Room Air 6 09/21/22 14:22 09/21/22 15:11 09/21/22 15:11 09/21/22 14:22 09/21/22 14:22 09/21/22 14:22 09/21/22 14:15 FiO2 30 09/21/22 14:15 Oxygen Flow Rate (L/min) 6 Oxygen Delivery Method Room Air Weight: 134.7 kg Body Mass Index (BMI) 41.4 Intake & Output: Intake and Output for Last 24 Hours 09/19/22 09/20/22 09/21/22 23:59 23:59 23:59 Intake Total 1660 / 1660 1270 / 1670 1200 / 1200 Balance 1660 / 1660 1270 / 1670 1200 / 1200 Lab / Micro Data 09/19/22 05:42 09/19/22 05:42 Labs: Laboratory Results - last 24 hr 09/20/22 17:18: POC Glucose 152 H 09/20/22 20:33: POC Glucose 118 H 09/21/22 11:48: POC Glucose 128 H Micro: Microbiology 09/12/22 16:58 Blood Culture (Wb) - Anticubital Right Blood Culture - Final No growth in 5 days. 09/12/22 17:22 Blood Culture (Wb) - Anticubital Right Blood Culture - Final No growth in 5 days. 09/12/22 23:05 Sputum, Tracheal Aspirate Gram Stain - Final 09/12/22 23:05 Sputum, Tracheal Aspirate Respiratory Culture - Final Hafnia alvei Pseudomonas aeruginosa Serratia marcescens Beta streptococcus 09/12/22 23:10 Mucosa - Nasopharyngeal Respiratory Panel (PCR) - Final 09/12/22 16:50 Nasal Secretion SARS-CoV-2 & FLU Antigen (Rapid) - Final 09/12/22 22:40 Urine, Clean Catch Streptococcus pneumoniae Antigen (M - Final 09/12/22 22:40 Urine, Clean Catch Legionella Antigen - Final Physical Exam Const alert and oriented x3 Resp clear to auscultation bilaterally Cardio Rhythm: abnormal rhythm GI non-tender and non-distended GI Narrative: obese Auscultation: normoactive bowel sounds Extremity General Extremity: edema Psych cooperative Assessment & Plan Assessment/Plan (1) ALEJANDRA (acute kidney injury): PLAN: creatinine improved Currently on lasix, edema. urine volumes not recorded. Will need f/u in office in 2-4 wks after discharge (2) Stage 3a chronic kidney disease (CKD): PLAN: renal fxn at baseline (3) Pneumonia: PLAN: iv antibx per ID. Renal dose vancomycin (4) CHF exacerbation: QUALIFIERS: Heart failure type: diastolic Qualified Code(s): I50.33 - Acute on chronic diastolic (congestive) heart failure PLAN: continue lasix 40mg bid. iv lasix x1 today. (5) Atrial fibrillation: (6) Obesity: QUALIFIERS: Obesity type: due to excess calories Obesity classification: adult class 2 (BMI 35 - 39.9) Serious obesity comorbidity presence: with serious comorbidity Body mass index: BMI 39.0-39.9 Qualified Code(s): E66.01 - Morbid (severe) obesity due to excess calories; Z68.39 - Body mass index [BMI] 39.0-39.9, adult (7) Diabetes: QUALIFIERS: Diabetes mellitus type: type 2 Diabetes mellitus intermediate insulin use: with intermediate use Diabetes mellitus complication status: with hyperglycemia Qualified Code(s): E11.65 - Type 2 diabetes mellitus with hyperglycemia; Z79.4 - buttermaker continuous churn (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
[2022-09-21 16:55] LABS: Bedside Glucose 124 mg/dL (74-106)
[2022-09-21] MEDS: Atorvastatin Calcium 40 MG Tablet PO (17:35)
[2022-09-21 17:43] LABS: Anion Gap 6 (5-15); BUN 38 mg/dL (7-18); BUN/Creat Ratio 23.5 RATIO (10-20); Calcium,Total 8.4 mg/dL (8.5-10.1); Chloride 100 mmol/L (98-107); Creatinine, Serum 1.62 mg/dL (0.70-1.30); EST Glomerular Filtration Rate 45 mL/min (>60); Est Glom Filt Rate - Afr Amer 55 mL/min (>60); Estimated Creatinine Clearance 47.13 ml/min; Glucose 131 mg/dL (74-106); Potassium 5.1 mmol/L (3.5-5.1); Sodium Level 134 mmol/L (136-145)
--- NOTE | 2022-09-21 19:08 | NURSING ---
Reviewed charting with Carmelina Belle RN
[2022-09-21] MEDS: Insulin Glargine-YFGN 100 UNIT/ML Pen 20 UNIT SC (22:45)
[2022-09-21 22:57] LABS: Bedside Glucose 134 mg/dL (74-106)
[2022-09-22] VITALS (7 sets, daily range): BP systolic 113–124; BP diastolic 56–76; PULSE 68–100; RESP 16–18; TEMP 36.4–37.2; O2SAT 94–100; BMI 39.7
[2022-09-22] MEDS: Albuterol 2.5 MG/3 ML VIAL.NEB. INHALATION (05:08)
[2022-09-22] MEDS: Levothyroxine 150 MCG Tablet PO (06:21)
[2022-09-22 06:47] LABS: Bedside Glucose 104 mg/dL (74-106)
[2022-09-22 07:01] LABS: Anion Gap 7 (5-15); BUN 37 mg/dL (7-18); BUN/Creat Ratio 24.3 RATIO (10-20); Calcium,Total 8.5 mg/dL (8.5-10.1); Chloride 99 mmol/L (98-107); Creatinine, Serum 1.52 mg/dL (0.70-1.30); EST Glomerular Filtration Rate 49 mL/min (>60); Est Glom Filt Rate - Afr Amer 59 mL/min (>60); Estimated Creatinine Clearance 50.23 ml/min; Glucose 102 mg/dL (74-106); Potassium 4.6 mmol/L (3.5-5.1); Sodium Level 134 mmol/L (136-145)
[2022-09-22] MEDS: Ipratropium/Albuterol Sulfate 3 ML AMPUL.NEB INHALATION ×2 (07:16→10:22)
[2022-09-22] MEDS: Aspirin E.C. 81 MG Tablet PO (09:12)
[2022-09-22] MEDS: APIXABAN 5 MG TABLET PO (09:12)
[2022-09-22] MEDS: Pantoprazole Sodium 20 MG Tablet PO (09:12)
[2022-09-22] MEDS: Spironolactone 25 MG Tablet PO (09:12)
[2022-09-22] MEDS: Furosemide 40 MG Tablet PO (09:12)
[2022-09-22] MEDS: dilTIAZem CD 120 MG Capsule PO (09:12)
--- NOTE | 2022-09-22 11:30 | CASEMGMT ---
ANUSHA EDGAR in to inquire that patient has portable tank from home for discharge. Patient states he has no full tanks at home. ANUSHA EDGAR called [facility] [place] and arranged for portable tank to be delivered to patient's room. ANUSHA EDGAR requested [facility] [place] deliver more portable tanks to patient's home. Per Kalyn, more tanks to be delivered Sunday. ANUSHA EDGAR updated patient, patient had no further questions or concerns at this time.
[2022-09-22] MEDS: Ferrous Sulfate 325 MG Tablet PO (11:53)
[2022-09-22 12:14] LABS: Bedside Glucose 142 mg/dL (74-106)
[2022-09-22] MEDS: 0.9% Saline Lock 10 ML Syringe IV (12:36)
--- NOTE | 2022-09-22 13:04 | PCM.DC ---
Discharge Instructions Diet Discharge Diet: No restrictions Activity Discharge Activity: Return to Normal Activity Weight Bearing Status: Full weight bearing Follow Up Care Please Follow Up With: Chinmay Sin MD When: As needed Test Results: Test results from this visit will be discussed in further detail at your follow-up appointment, if applicable. Pending Tests Upon Discharge: None Discharge Plan Admission Admit Date/Time: 09/12/22 20:53 Primary Reason for Your Visit: Pneumonia, hypervolemia Attending Provider: Tomas Jenkins Primary Care Provider: Chinmay Sin Consulting Providers: Eunice Melgar; Himanshu Larose; Ron Lockhart; Maxi Doan; Ke Grace; Elio Zhong; Vladimir Avitia; Laura Hernández NP; Tea Robles; Ashu Oliver Instructions Additional Instructions / Restrictions: We have STOPPED your home lisinopril. Otherwise, continue all other home medications as prescribed. Follow-up with your primary care doctor as needed. Discharge Orders/Prescriptions Prescriptions: New meropenem 1 gram recon soln 1 g IV Q8H 5 Days Rx Instructions: stop date 09/22/22 dx: pneumonia Continued ferrous sulfate [FeroSul] 325 mg (65 mg iron) tablet 325 mg PO DAILY cyanocobalamin (vitamin B-12) 2,500 mcg tablet 2,500 mcg PO DAILY Eliquis 5 mg tablet 5 mg PO BID Qty: 60 11RF Trulicity 4.5 mg/0.5 mL pen injector 4.5 mg subcut FR Qty: 6 1RF spironolactone 25 mg tablet 25 mg PO DAILY Hold Instructions: Med change 02/20/21 furosemide 40 mg tablet 40 mg PO BID Qty: 60 12RF Hold Instructions: Hold for 1 week until kidney function, creatinine returns to baseline 1.70. metolazone 2.5 mg tablet 2.5 mg PO MOWEFR Qty: 30 6RF Hold Instructions: Hold for 1 week until kidney function, creatinine returns to baseline 1.70. levothyroxine 150 MCG tablet 150 mcg PO DAILY Patient Comments: thyroid atorvastatin 40 MG tablet 40 mg PO DAILY@1700 ipratropium-albuterol 3 ML solution for nebulization 3 ml inhalation Q6H Patient Comments: breathing acetaminophen 325 mg Tablet 650 mg PO DAILY PRN (Reason: Pain) omeprazole 20 mg capsule,delayed release(DR/EC) 20 mg PO DAILY Patient Comments: TAKE 1 CAPSULE BY MOUTH ONCE DAILY guaifenesin [Mucinex] 600 mg Tablet Extended Release 12hr 600 mg PO DAILY PRN (Reason: Congestion) budesonide [Pulmicort] 0.5 mg/2 mL Suspension For Nebulization 0.5 mg INHALATION BID potassium chloride 40 mEq/15 mL liquid 40 meq PO DAILY 10 Days Qty: 150 0RF Levemir FlexPen 100 unit/mL (3 mL) insulin pen 20 unit subcut QHS (DME) FreeStyle Zayra 2 Sensor Kit See Rx Instructions .ROUTE .MEDSUPPLY Qty: 2 6RF Rx Instructions: As directed diltiazem HCl 120 mg capsule,extended release 24hr 120 mg PO BID Qty: 180 3RF Rx Instructions: Hold for heart less than 60 or systolic blood pressure less than 100 mmHg. insulin lispro [Humalog KwikPen Insulin] 100 unit/mL insulin pen 12 unit subcut TID Qty: 36 1RF Hold Instructions: not taking Discontinued lisinopril 5 mg tablet 5 mg PO DAILY Hold Instructions: Hold for 1 week until kidney function, creatinine returns to baseline 1.70. insulin aspart U-100 [Novolog FlexPen U-100 Insulin] 100 unit/mL (3 mL) insulin pen 12 unit subcut TID Qty: 45 1RF Hold Instructions: not taking Referrals / Follow Up: Chinmay Sin MD [Primary Care Provider] - Disposition Disposition (needs filled in before D/C Order can be placed): Home, Self Care
--- NOTE | 2022-09-22 13:08 | PCM.DC.SUM ---
Providers Date of Admission: 09/12/22 Date of Discharge: 09/22/22 Primary Care Physician: Dr. Chinmay Sin MD Consultations 09/15/22 09:24 Consult: Infectious Disease Routine Consulting Provider: Ron Lockhart Reason for Consult: Pseudomonas in tracheal aspirate, tracheostomy EMERGENT Consult: No Notified: Yes Date Notified: 09/15/22 Time Notified: 09:25 Method of Notification: Text 09/15/22 12:25 Consult: Physiological Chemist / Pulmonary Medicine Routine Consulting Provider: Pulmonary Medicine [facility] Reason for Consult: loculated effusion, pleurx removed 09/11/22 at [facility] EMERGENT Consult: No Notified: Yes Date Notified: 09/15/22 Time Notified: 12:25 Method of Notification: Text 09/15/22 12:34 Consult: Nephrology Routine Consulting Provider: Tea Robles Reason for Consult: ALEJANDRA on CKD 3 EMERGENT Consult: No MD Notified: Yes Date Notified: 09/15/22 Time Notified: 12:34 Method of Notification: Text Reason For Visit: CHF EXAC ?, PNA Diagnosis Discharge Diagnosis (1) Congestive heart failure: Status: Acute Code(s): I50.9 - Heart failure, unspecified Medications at Discharge Home Medications levothyroxine 150 mcg tablet 150 mcg PO DAILY hypothyroidism 06/04/14 atorvastatin 40 mg tablet 40 mg PO DAILY@1700 cholesterol 04/12/17 ipratropium 0.5 mg-albuterol 3 mg (2.5 mg base)/3 mL nebulization soln 3 ml inhalation Q6H sob 04/12/17 flash glucose sensor (FreeStyle Zayra 2 Sensor kit) #2 ea 05/17/21 acetaminophen 325 mg tablet 650 mg PO DAILY PRN Pain 12/06/21 budesonide 0.5 mg/2 mL suspension for nebulization (Pulmicort) 0.5 mg inhalation BID sob 12/06/21 guaifenesin 600 mg tablet, extended release 12 hr (Mucinex) 600 mg PO DAILY PRN Congestion 12/06/21 omeprazole 20 mg capsule,delayed release 20 mg PO DAILY GERD 12/06/21 diltiazem HCl 120 mg capsule,extended release 24 hr 120 mg PO BID #180 caps 12/14/21 apixaban 5 mg tablet (Eliquis) 5 mg PO BID #60 tabs 12/15/21 cyanocobalamin (vitamin B-12) 2,500 mcg tablet 2,500 mcg PO DAILY supplement 12/15/21 furosemide 40 mg tablet 40 mg PO BID EDEMA #60 tabs 02/21/22 metolazone 2.5 mg tablet 2.5 mg PO MOWEFR EDEMA #30 tabs 02/21/22 spironolactone 25 mg tablet 25 mg PO DAILY 02/21/22 Trulicity 4.5 mg/0.5 mL subcutaneous pen injector (dulaglutide) 4.5 mg (0.5 mL) subcut FR DIABETES #6 mL 04/03/22 insulin lispro 100 unit/mL subcutaneous pen (Humalog KwikPen (U-100) Insulin) 12 unit (0.12 mL) subcut TID #36 mL 04/07/22 potassium chloride 40 mEq/15 mL oral liquid 40 meq (15 mL) PO DAILY 10 days #150 mL 08/19/22 ferrous sulfate 325 mg (65 mg iron) tablet (FeroSul) 325 mg PO DAILY 08/29/22 insulin detemir U-100 100 unit/mL (3 mL) subcutaneous pen (Levemir FlexPen) 20 unit subcut QHS 09/12/22 meropenem 1 gram intravenous solution 1 g IV Q8H 5 days 09/18/22 Hospital Course Operations None Procedures EKG, Transthoracic echo and - (Chest x-ray) Summary of Care Provided Minutes Spent on Discharge: 38 Hospital Course: Patient is a 67-year-old male with past medical history significant for HFpEF, laryngeal carcinoma status post tracheostomy in 2007, chronic hypoxemic and hypercarbic respiratory failure, obesity, insulin-dependent type 2 diabetes, hypertension, CKD stage III, paroxysmal A-fib, and hypothyroidism who presented to the [facility] ED on 09/12 with worsening dyspnea. Multiple medical conditions addressed during hospitalization as noted below. Acute on chronic HFpEF: Patient was mildly volume overloaded on presentation. Home medications are Lasix 40 mg daily, Cardizem 120 mg twice daily, lisinopril 5 mg daily, spironolactone 25 mg daily. Patient reported compliance with medications, but there had been small changes made to his diuretic regimen over the previous several weeks. Echo 09/12 showed EF 65%, RA mildly enlarged, LA moderately enlarged suggestive of HFpEF. Started on IV Lasix on admission with some diuresis. Was also given a dose of metolazone on 09/14. Developed an ALEJANDRA on 09/15 and diuretics were discontinued. Nephrology followed from that point forward. Restarted home diuretics on 09/17 as patient was requiring slightly more oxygen, with some improvement in oxygenation and subjective improvement in dyspnea on exertion. Home regimen continued on discharge. Pneumonia in setting of known chronic respiratory failure with tracheostomy status: Tracheostomy in place since 2007 posttreatment for laryngeal cancer. Has baseline oxygen requirement of 4 L. Sputum culture on admit positive for Pseudomonas, Hafnia, Serratia and strep. ID followed. Was initially on IV Zosyn, then changed to meropenem on 09/15 to cover Hafnia and completed a 7-day course of this with stop date of 09/22. Required up to 8 to 10 L of oxygen during admission, improved to home 4 L on discharge. Pulmonology followed, noted the patient appears to be around his baseline from respiratory standpoint, continue his home bronchodilators with no further needs. Chronic left-sided pleural effusion: Pulmonology evaluated 09/16. Noted that patient has been followed in the past by pulmonology for this chronic left-sided pleural effusion. Has typically been transudative with previous thoracenteses and felt secondary to heart failure. Had Pleurx catheter placed in April that was recently removed. Pulm recommended no intervention at this time. ALEJANDRA on CKD stage III: Nephrology followed. Suspected patient had prerenal ALEJANDRA due to cardiorenal syndrome in setting of overdiuresis. Baseline creatinine appears to be around 1.1-1.3, worsened with diuresis with peak of 2.3 on 09/15. Creatinine improved to about baseline prior to discharge. Home diuretics continued on discharge as noted above. Discharge diagnoses: ? Acute on chronic HFpEF ? Pneumonia in setting of known chronic respiratory failure with tracheostomy status ? Chronic left-sided pleural effusion ? ALEJANDRA on CKD stage III, resolved ? Insulin-dependent type 2 diabetes ? Anemia ? Paroxysmal atrial fibrillation on Eliquis Total clinical time spent by myself addressing the patient's discharge needs: 38 minutes. Physical Exam Const alert, oriented x3 and no apparent distress Constitutional Narrative: Pleasant male, obese, sitting comfortably in bedside chair, no acute distress. Has difficulty with speaking for several sentences secondary to his tracheostomy, appears to be his baseline. General Appearance: cooperative and comfortable HEENT normocephalic, head/scalp atraumatic, hearing grossly normal bilaterally, nasal mucous membranes and turbinates normal and moist oral mucous membranes HEENT Narrative: Tracheostomy in place, site appears clean and dry. Eyes PERRL, EOMs intact bilaterally and conjunctivae normal Neck full ROM and supple Chest inspection of chest normal Resp normal respiratory effort, normal air movement, no use of accessory muscles and clear to auscultation bilaterally Resp Narrative: On 8 L via trach mask on exam, however this is heated humidified air; patient receiving closer to 4 to 5 L nasal cannula. No increased work of breathing noted. Cardio regular rate, regular rhythm, no murmurs and peripheral pulses 2+ throughout GI normal to inspection, nondistended, normoactive bowel sounds, soft to palpation, non-tender and non-distended Back/Spine normal ROM Extremity normal to inspection and full ROM Extremity Narrative: +2-3 pitting edema in lower extremities bilaterally up to his knees. Similar to previous days. Skin no rashes or lesions noted Psych mental status grossly normal Weight / BMI Weight Weight: 129.4 kg Body Mass Index (BMI) 39.7 ABG / Lab / Microbiology Data 09/19/22 05:42 09/22/22 06:00 Laboratory: Laboratory Results - last 24 hr 09/21/22 16:32: Sodium 134 L, Potassium 5.1, Chloride 100, Carbon Dioxide 28.0, Anion Gap 6, BUN 38 H, Creatinine 1.62 H, Estim Creat Clear Calc 47.13, Est GFR (MDRD) Af Amer 55 L, Est GFR (MDRD) Non-Af 45 L, BUN/Creatinine Ratio 23.5 H, Glucose 131 H, Calcium 8.4 L 09/21/22 16:37: POC Glucose 124 H 09/21/22 22:38: POC Glucose 134 H 09/22/22 06:00: Sodium 134 L, Potassium 4.6, Chloride 99, Carbon Dioxide 28.0, Anion Gap 7, BUN 37 H, Creatinine 1.52 H, Estim Creat Clear Calc 50.23, Est GFR (MDRD) Af Amer 59 L, Est GFR (MDRD) Non-Af 49 L, BUN/Creatinine Ratio 24.3 H, Glucose 102, Calcium 8.5 09/22/22 06:28: POC Glucose 104 09/22/22 11:51: POC Glucose 142 H Microbiology: Microbiology 09/12/22 16:58 Blood Culture (Wb) - Anticubital Right Blood Culture - Final No growth in 5 days. 09/12/22 17:22 Blood Culture (Wb) - Anticubital Right Blood Culture - Final No growth in 5 days. 09/12/22 23:05 Sputum, Tracheal Aspirate Gram Stain - Final 09/12/22 23:05 Sputum, Tracheal Aspirate Respiratory Culture - Final Hafnia alvei Pseudomonas aeruginosa Serratia marcescens Beta streptococcus 09/12/22 23:10 Mucosa - Nasopharyngeal Respiratory Panel (PCR) - Final 09/12/22 16:50 Nasal Secretion SARS-CoV-2 & FLU Antigen (Rapid) - Final 09/12/22 22:40 Urine, Clean Catch Streptococcus pneumoniae Antigen (M - Final 09/12/22 22:40 Urine, Clean Catch Legionella Antigen - Final D/C Instructions Discharge Diet: No restrictions Weight Bearing Status: Full weight bearing Pending Tests Upon Discharge: None Please Follow Up With: Chinmay Sin MD When: As needed Meaningful Use Info Meaningful Use Diagnoses (Choose all that apply): None applicable Discharge Plan Admission Admit Date/Time: 09/12/22 20:53 Primary Reason for Your Visit: Pneumonia, hypervolemia Attending Provider: Tomas Jenkins Primary Care Provider: Chinmay Sin Consulting Providers: Eunice Melgar; Himanshu Larose; Ron Lockhart; Maxi Doan; Ke Grace; Elio Zhong; Vladimir Avitia; Laura Hernández NP; Tea Robles; Ashu Oliver Instructions Additional Instructions / Restrictions: We have STOPPED your home lisinopril. Otherwise, continue all other home medications as prescribed. Follow-up with your primary care doctor as needed. Discharge Orders/Prescriptions Prescriptions: New meropenem 1 gram recon soln 1 g IV Q8H 5 Days Rx Instructions: stop date 09/22/22 dx: pneumonia Continued ferrous sulfate [FeroSul] 325 mg (65 mg iron) tablet 325 mg PO DAILY cyanocobalamin (vitamin B-12) 2,500 mcg tablet 2,500 mcg PO DAILY Eliquis 5 mg tablet 5 mg PO BID Qty: 60 11RF Trulicity 4.5 mg/0.5 mL pen injector 4.5 mg subcut FR Qty: 6 1RF spironolactone 25 mg tablet 25 mg PO DAILY Hold Instructions: Med change 02/20/21 furosemide 40 mg tablet 40 mg PO BID Qty: 60 12RF Hold Instructions: Hold for 1 week until kidney function, creatinine returns to baseline 1.70. metolazone 2.5 mg tablet 2.5 mg PO MOWEFR Qty: 30 6RF Hold Instructions: Hold for 1 week until kidney function, creatinine returns to baseline 1.70. levothyroxine 150 MCG tablet 150 mcg PO DAILY Patient Comments: thyroid atorvastatin 40 MG tablet 40 mg PO DAILY@1700 ipratropium-albuterol 3 ML solution for nebulization 3 ml inhalation Q6H Patient Comments: breathing acetaminophen 325 mg Tablet 650 mg PO DAILY PRN (Reason: Pain) omeprazole 20 mg capsule,delayed release(DR/EC) 20 mg PO DAILY Patient Comments: TAKE 1 CAPSULE BY MOUTH ONCE DAILY guaifenesin [Mucinex] 600 mg Tablet Extended Release 12hr 600 mg PO DAILY PRN (Reason: Congestion) budesonide [Pulmicort] 0.5 mg/2 mL Suspension For Nebulization 0.5 mg INHALATION BID potassium chloride 40 mEq/15 mL liquid 40 meq PO DAILY 10 Days Qty: 150 0RF Levemir FlexPen 100 unit/mL (3 mL) insulin pen 20 unit subcut QHS (DME) FreeStyle Zayra 2 Sensor Kit See Rx Instructions .ROUTE .MEDSUPPLY Qty: 2 6RF Rx Instructions: As directed diltiazem HCl 120 mg capsule,extended release 24hr 120 mg PO BID Qty: 180 3RF Rx Instructions: Hold for heart less than 60 or systolic blood pressure less than 100 mmHg. insulin lispro [Humalog KwikPen Insulin] 100 unit/mL insulin pen 12 unit subcut TID Qty: 36 1RF Hold Instructions: not taking Discontinued lisinopril 5 mg tablet 5 mg PO DAILY Hold Instructions: Hold for 1 week until kidney function, creatinine returns to baseline 1.70. insulin aspart U-100 [Novolog FlexPen U-100 Insulin] 100 unit/mL (3 mL) insulin pen 12 unit subcut TID Qty: 45 1RF Hold Instructions: not taking Referrals / Follow Up: Sosa Gibbons PA [Non-Staff] - 10/05/22 12:20 am Disposition Disposition (needs filled in before D/C Order can be placed): Home, Self Care Charges/Coding Visit Charges Inpatient E&M: 43169 Disch Hosp >30min
--- NOTE | 2022-09-22 16:17 | NURSING ---
Reviewed charting with Carmelina Belle RN
== END 2022-09-22 15:22 | disposition home or self-care (01) | DRG 291 ==
LOC: ED 20:49 → PCU 21:06
PROVIDERS: Internal Medicine; Internal Medicine Nephrology; Nurse Practitioner Adult Health; Admitting Provider Family Medicine; Emergency Provider Emergency Medicine; PCP Family Medicine; Visit Provider Hospitalist
DX: I13.0 Hypertensive heart and chronic kidney disease with heart failure and stage 1 through stage 4 chronic kidney disease, or unspecified chronic kidney disease (principal); I50.33 Acute on chronic diastolic (congestive) heart failure; J96.21 Acute and chronic respiratory failure with hypoxia; J18.9 Pneumonia, unspecified organism; J96.22 Acute and chronic respiratory failure with hypercapnia; N17.9 Acute kidney failure, unspecified; J90 Pleural effusion, not elsewhere classified; E87.1 Hypo-osmolality and hyponatremia; J96.11 Chronic respiratory failure with hypoxia; E11.22 Type 2 diabetes mellitus with diabetic chronic kidney disease; N18.31 Chronic kidney disease, stage 3a; E66.01 Morbid (severe) obesity due to excess calories; Z93.0 Tracheostomy status; E11.40 Type 2 diabetes mellitus with diabetic neuropathy, unspecified; Z79.4 Long term (current) use of insulin; E11.65 Type 2 diabetes mellitus with hyperglycemia; I48.0 Paroxysmal atrial fibrillation; D50.9 Iron deficiency anemia, unspecified; F32.A Depression, unspecified; E03.9 Hypothyroidism, unspecified; K21.9 Gastro-esophageal reflux disease without esophagitis; I25.10 Atherosclerotic heart disease of native coronary artery without angina pectoris; E78.5 Hyperlipidemia, unspecified; J92.9 Pleural plaque without asbestos; Z79.01 Long term (current) use of anticoagulants; Z82.3 Family history of stroke; Z90.02 Acquired absence of larynx; Z87.891 Personal history of nicotine dependence; G89.4 Chronic pain syndrome; Z68.39 Body mass index [BMI] 39.0-39.9, adult; B96.5 Pseudomonas (aeruginosa) (mallei) (pseudomallei) as the cause of diseases classified elsewhere; Z85.21 Personal history of malignant neoplasm of larynx
CPT/HCPCS: 31720; 36415; 71045; 80048; 80053; 80061; 80202; 81001; 82962; 83605; 83735; 83880; 84145; 84439; 84443; 84484; 85025; 85027; 85610; 85730; 87040; 87070; 87077; 87184; 87186; 87205; 87428; 87449; 87633; 87641; 93005; 93306; 94640; 97110; 97116; 97162; 97166; 97530; 97535; 97802; 99252; 99285; J2185; J7040; A4216; G0463; J1940

== ENCOUNTER 2022-11-13 18:38 | Inpatient (IN) | payer MEDICARE, SELFPAY ==
[2022-11-13] VITALS (11 sets, daily range): BP systolic 106–138; BP diastolic 56–85; PULSE 77–110; RESP 18–32; TEMP 37.3–39.4; O2SAT 8–100; BMI 33.5; BMI 36.2
--- NOTE | 2022-11-13 18:47 | EKG12_ITS ---
Test Reason : SOB Blood Pressure : / mmHG Vent. Rate : 109 BPM Atrial Rate : 000 BPM P-R Int : 000 ms QRS Dur : 086 ms QT Int : 318 ms P-R-T Axes : 000 053 233 degrees QTc Int : 428 ms Atrial fibrillation with rapid ventricular response Septal infarct (cited on or before 12-SEP-2022) ST & T wave abnormality, consider inferolateral ischemia Abnormal ECG Confirmed by BALTAZAR CHENG, ALEXANDER ([id number]), editorial cartoonist MISAEL OSHEA ([id number]) on 11/15/2022 10:46:16 AM Referred By: [email or web address] Confirmed By:ALEXANDER LEDESMA MD
--- NOTE | 2022-11-13 18:49 | EDS_ITS ---
<Statement entered by Lisseth Pacheco MD - 11/13/22 20:32> I have personally performed a face to face assessment of the patient and have reviewed the MARQUEZ Note. Patient presents with 5-day history of shortness of breath, cough, blood-tinged sputum. He has some mild chest pain. He arrives with a temperature of 103. 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 He normally wears 2 to 4 L of oxygen now on the trach collar. His tested positive for COVID on Sunday. Patient sitting upright in bed no acute distress. He is ill-appearing but in no acute distress. Head and neck examination unremarkable. Heart is tachycardic and irregular. Lung sounds are with rales bilaterally. Diminished breath sounds at the left base. Abdomen is soft, obese, nontender. Patient given Tylenol for fever control. Sepsis work-up initiated. Patient does have an elevated white count at 14. Chest x-ray reveals pleural effusion the left base with potential infiltrate as well. COVID and influenza swab is negative. Patient's potassium is slightly low at 3 this is replaced. He is given Zosyn and vancomycin as he was hospitalized in September. Patient discussed with hospitalist for admission. HPI History of Present Illness Chief Complaint: Shortness of Breath Narrative Narrative: Patient is a 67-year-old male with a long medical history, patient has a trach that has been present since 2006 secondary to larynx cancer. Patient is history of CHF atrial fibrillation on Eliquis, type 2 diabetes, obesity who presents to the emergency department for fever and chills as well as cough and shortness of breath. Patient's has COVID-19, patient states of the last 5 days has been feeling unwell however today has been feeling more short of breath, his fever spiked and he is here for evaluation. He denies any nausea or vomiting. Patient states he does have bloody mucus from his trach. Arrives by EMS. [facility] Medical History (Updated 11/13/22 @ 20:18 by ANN-MARIE Bernstein) (HFpEF) heart failure with preserved ejection fraction Ambulates with cane Anticoagulant long-term use Anxiety Atherosclerosis of coronary artery of [place] heart without angina pectoris Back pain Benign neoplasm of colon Chronic a-fib Chronic pain Chronic renal failure, stage 3 (moderate) COPD (chronic obstructive pulmonary disease) Diabetes mellitus, type II Diverticulosis of colon (without mention of hemorrhage) Emphysema, unspecified Esophageal dysmotility Essential hypertension Former smoker Gastric reflux Gastroenteritis Gout Hiatal hernia History of colon polyps Hyperlipidemia Hypothyroidism Injury of back Injury of head and neck Laryngeal cancer Malignant neoplasm of head, neck and face Migraine headache Obesity On home oxygen therapy Recurrent left pleural effusion Type 2 diabetes mellitus without complication Walker as ambulation aid Wears glasses Home Medications levothyroxine 150 mcg tablet 150 mcg PO DAILY hypothyroidism 06/04/14 [History Last Taken 12/05/21] atorvastatin 40 mg tablet 40 mg PO DAILY@1700 cholesterol 04/12/17 [History Last Taken 12/05/21] ipratropium 0.5 mg-albuterol 3 mg (2.5 mg base)/3 mL nebulization soln 3 ml inhalation Q4H sob 04/12/17 [History Last Taken 12/06/21] flash glucose sensor (FreeStyle Zayra 2 Sensor kit) #2 ea 05/17/21 [Rx Last Taken Unknown] acetaminophen 325 mg tablet 650 mg PO DAILY PRN Pain 12/06/21 [History Last Taken 12/05/21] budesonide 0.5 mg/2 mL suspension for nebulization (Pulmicort) 0.5 mg inhalation BID sob 12/06/21 [History Last Taken Unknown] omeprazole 20 mg capsule,delayed release 20 mg PO DAILY GERD 12/06/21 [History Last Taken 12/05/21] diltiazem HCl 120 mg capsule,extended release 24 hr 120 mg PO BID #180 caps 12/14/21 [Rx Last Taken Unknown] apixaban 5 mg tablet (Eliquis) 5 mg PO BID #60 tabs 12/15/21 [Rx Last Taken Unknown] furosemide 40 mg tablet 40 mg PO BID EDEMA #60 tabs 02/21/22 [Rx Last Taken Unknown] metolazone 2.5 mg tablet 2.5 mg PO MOWEFR EDEMA #30 tabs 02/21/22 [Rx Last Taken Unknown] spironolactone 25 mg tablet 25 mg PO Q12H 02/21/22 [History Last Taken Unknown] ferrous sulfate 325 mg (65 mg iron) tablet (FeroSul) 325 mg PO DAILY 08/29/22 [History Last Taken Unknown] insulin detemir U-100 100 unit/mL (3 mL) subcutaneous pen (Levemir FlexPen) 25 unit subcut QHS 08/08/23 [History Last Taken Unknown] dulaglutide 4.5 mg/0.5 mL subcutaneous pen injector (Trulicity) 4.5 mg subcut WE DIABETES 11/13/22 [History Last Taken Unknown] potassium chloride 10 mEq capsule,extended release 20 meq PO DAILY 11/13/22 [History Last Taken Unknown] Allergy/AdvReac Type Severity Reaction Status Date / Time acetaminophen [From Percocet] AdvReac Intermediate headache Verified 11/13/22 18:39 oxycodone [From Percocet] AdvReac Intermediate headache Verified 11/13/22 18:39 egg [eggs] AdvReac Vomiting Verified 11/13/22 18:39 Family History Mother Diabetes Hypertension Kidney disease Heart failure Father CVA (cerebral vascular accident) Hypertension Heart disease ischemic Brother Diabetes Surgical History History of cardiac catheterization History of exploratory laparotomy History of laryngectomy (2007) History of thyroidectomy Hx of colonoscopy Presence of tracheostomy Social History Smoking Status: Former smoker Smokeless tobacco user: snuff how long ago did patient quit smokin years ago alcohol intake: never substance use type: does not use caffeine: Yes what type of physical activity do you participate in: none frequency: does not exercise ROS ROS ED ROS Narrative Constitutional: Negative for weight loss, weakness. Positive for fever and chills Eyes: Negative for vision loss, vision change, double vision ENT: Negative for any sore throat, ear pain, congestion Cardiovascular: Negative for any chest pain, tightness, palpitations Respiratory: Positive for any cough, sputum production, hemoptysis, dyspnea, dyspnea on exertion, orthopnea Gastrointestinal: Negative for any abdominal pain, nausea, vomiting, diarrhea, constipation, blood in stool, blood in vomit : Negative for any urinary frequency, dysuria, retention, blood in urine Muscle skeletal: Negative for any muscle joint pain, stiffness, arthralgias, neck pain, back pain. Positive for myalgias Neurological: Negative for any headache, syncope, numbness or tingling, dizziness Skin: Negative for any rashes, lumps, itching, abrasions, lacerations Psychiatric: Negative for any depression, anxiety, stress, suicidal ideation, homicidal ideation Hematologic: Negative for any easy bruising, excessive bruising, easy bleeding Allergies: Negative for any eczema, hives, rash EXAM Physical Exam Narrative Exam Narrative: Vital signs reviewed. Patient appears ill. Patient's oral temp was 103, patient's tachycardic, atrial fibrillation. HEET: Head normocephalic atraumatic, TMs clear bilaterally. Posterior pharynx is clear, dry mucous membranes. Nares clear bilaterally. Patient does have yellow to green mucus coming from his tracheotomy, he states that there has been some blood mixed sputum as well. Neck: Supple with no lymphadenopathy or tenderness. No signs of meningismus, negative jolt sign. Cardiac: Tachycardic irregular rate, no murmurs gallops or rubs, equal peripheral pulses bilaterally. Respiratory: Pt. has rhonchorous breath sounds throughout the entire pulmonary exam. No chest tenderness. Abdomen: Soft, nontender, nondistended. No abdominal bruit or pulsatile masses. No hepatosplenomegaly Extremities: No peripheral edema, no signs of gross trauma or deformity. Active full range of motion of all extremities. Neuro: Cranial nerves II through XII intact, no focal neurological deficits. Skin: Clean dry and intact with no rash, purpura, petechiae, vesicles or pustules. Backs/flank: No CVA tenderness, no midline spinal tenderness, no deformity. Psych: Normal mood and affect. No SI, HI or acute psychosis. Const Vital Signs: 11/13/22 18:39 11/13/22 18:45 11/13/22 18:47 Temperature 103.0 F H Temperature Source Oral Pulse Rate 107 H Respiratory Rate 20 H Respiratory Effort Short of Breath Respiratory Pattern Normal Blood Pressure 106/85 H Blood Pressure Mean 92 Pulse Ox 100 Oxygen Delivery Method Trach Collar Trach Collar Trach Collar Oxygen Flow Rate (L/min) 8 Fraction of Inspired Oxygen (FIO2) 11/13/22 19:38 11/13/22 20:00 Temperature Temperature Source Pulse Rate 105 H 110 H Respiratory Rate 30 H 23 H Respiratory Effort Respiratory Pattern Blood Pressure 138/70 H 126/61 H Blood Pressure Mean 92 82 Pulse Ox 97 98 Oxygen Delivery Method Trach Collar Trach Collar Oxygen Flow Rate (L/min) Fraction of Inspired Oxygen (FIO2) 35 Positive obese Nutritional Appearance: obese MDM MDM Lab Data Labs: Laboratory Results - last 24 hr 11/13/22 18:55 WBC 14.3 H RBC 3.40 L Hgb 9.1 L Hct 29.2 L MCV 85.9 MCH 26.8 L MCHC 31.2 L RDW Std Deviation 44.1 H RDW Coeff of Alisson 14.1 Plt Count 473 H MPV 9.5 Immature Gran % (Auto) 0.500 Neut % (Auto) 89.8 H Lymph % (Auto) 1.7 L [place] % (Auto) 7.4 Eos % (Auto) 0.2 Baso % (Auto) 0.4 Absolute Neuts (auto) 12.8 H Absolute Lymphs (auto) 0.24 L Nucleated RBC % 0 Differential Comment SCANNED PT 20.4 H INR 1.7 APTT 36.4 H Sodium 136 Potassium 3.0 L Chloride 97 L Carbon Dioxide 31.0 Anion Gap 8 BUN 22 H Creatinine 1.51 H Estim Creat Clear Calc 50.56 Est GFR (MDRD) Af Amer 59 L Est GFR (MDRD) Non-Af 49 L BUN/Creatinine Ratio 14.6 Glucose 149 H Lactic Acid 1.1 Calcium 8.0 L Total Bilirubin 0.50 AST 11 L ALT 15 L Alkaline Phosphatase 129 H Total Protein 7.2 Albumin 2.8 L Globulin 4.4 H Albumin/Globulin Ratio 0.6 L Radiography Diagnostic Testing: Clinical Impression(s) from Imaging Studies Chest X-Ray 11/13/22 19:05 IMPRESSION: Mild to moderate left-sided pleural effusion with possible left perihilar/left lower lobe pneumonia. Cannot exclude superimposed basilar congestion. Electronically Signed: Stephanie Pacheco MD at 19:19 EDT , EKG EKG shows atrial fibrillation with RVR: Attestation: I personally reviewed and interpreted this EKG as follows: Interpretation: Atrial Fibrillation Comments: Atrial fibrillation with RVR, rate 109 bpm, QRS duration 86 ms, no acute ST elevation, no acute infarct noted. Treatment and Re-Evaluation :: Patient appears to be in mild distress secondary to cough, shortness of breath, patient is here for 5 days of worsening cough, malaise and myalgias. Patient did have a 103 fever, secondary to the multiple comorbidities, patient received a septic work-up with 2 sets of blood culture, lactic. Will receive 2 view chest x-ray, COVID/flu. Patient received 500 cc of normal saline as well as Tylenol. Is have a CHF history. Patient was given Tylenol 1 g, patient CBC showed a leukocytosis with a white blood count 14.3, neutrophils 89.8, absolute neutrophils of 12.8, patient's PT/INR showed a PT of 20.4, APTT at 36.4. Patient's potassium was slightly decreased at 3.0, this will replace orally. Creatinine is 1.51, this is baseline. Patient's blood sugar is 149. Patient's chest x-ray showed mild to moderate left-sided pleural effusion with possible left perihilar left lower lobe pneumonia. Patient remained stable on 8 L of trach collar. Patient was started on Zosyn, vancomycin for hospital-acquired pneumonia. EKG shows atrial fibrillation at a rate 110. Patient is anticoagulated on Eliquis. Patient case discussed with hospitalist, patient is stable for admission Discharge Plan Dx/Rx/DC Orders Clinical Impression: Leukocytosis, Chronic kidney disease, HAP (hospital-acquired pneumonia), Respiratory failure, Acute hypokalemia Disposition Disposition: Acute Care Hospital [facility]
[2022-11-13 19:03] LABS: Absolute Lymphocyte Count 0.24 X10^3/uL (0.83-4.51); Absolute Neutrophil Count 12.8 X10^3/uL (2.0-7.7); Basophil# 0.05 X10^3/uL; Basophil% 0.4 % (0-1); Eosinophil# 0.03 X10^3/uL; Eosinophils% 0.2 % (0-5); Hematocrit 29.2 % (40-54); Hemoglobin 9.1 g/dL (13.0-16.5); Lymphocyte # 0.24 X10^3/ul (0.83-4.51); Lymphocyte % 1.7 % (19-41); Mean Corp Hgb Conc 31.2 g/dL (32-36); Mean Corpuscular Hgb 26.8 pg (27.0-32.0); Mean Corpuscular Volume 85.9 fL (80-94); Mean Platelet Vol. 9.5 fl (6.2-12.0); Monocyte# 1.05 X10^3/uL; Monocyte% 7.4 % (0-10); NRBC Flagged by Analyzer 0 % (0-5); Neutrophil # 12.84 X10^3/uL (2.7-7.7); Neutrophil % 89.8 % (47-70); POSITIVE DIFFERENTIAL YES; Platelet Count 473 K/mm3 (150-450); RBC Distribution Width CV 14.1 % (11.6-14.6); RBC Distribution Width SD 44.1 fl (35.1-43.9); White Blood Count 14.3 K/mm3 (4.4-11.0)
[2022-11-13 19:05] LABS: Differential Indicated SCAN CRITERIA MET
--- NOTE | 2022-11-13 19:05 | RAD_ITS ---
STUDY: X-RAY CHEST REASON FOR EXAM: Male, 67 years old. cough TECHNIQUE: Single AP portable view of the chest. COMPARISON: 09/13/2022. FINDINGS: Mild to moderate left-sided pleural effusion. Coarse opacity within the left perihilar region and left lower lobe may indicate underlying pneumonia. Mild fullness of the central vessels may indicate mild vascular congestion. Mild cardiomegaly. Normal mediastinum and laura. Normal visualized pulmonary arteries. There is atherosclerotic calcification of the aortic arch with tortuosity. Normal visualized thoracic spine. Normal visualized ribs, clavicles, and shoulders. There is no demonstrated abnormality of the visualized soft tissue structures of the upper abdomen. RAD/Chest 1 View (Portable) IMPRESSION: Mild to moderate left-sided pleural effusion with possible left perihilar/left lower lobe pneumonia. Cannot exclude superimposed basilar congestion. Electronically Signed: Stephanie Pacheco MD at 19:19 EDT ,
[2022-11-13 19:12] LABS: International Normalized Ratio 1.7; Partial Thromboplast Time 36.4 Seconds (24.1-36.2); Prothrombin Time (Protime)PT. 20.4 SECONDS (11.7-14.9)
[2022-11-13] MEDS: 0.9% Normal Saline (500mL Bag) 500 ML 999 ML IV (19:16)
[2022-11-13] MEDS: Acetaminophen 500 MG Tablet 1000 MG PO (19:17)
[2022-11-13 19:24] LABS: Lactic Acid 1.1 mmol/L (0.4-1.9)
[2022-11-13 19:25] LABS: ALB/GLOB Ratio 0.6 RATIO (0.9-2.4); AST(SGOT) 11 U/L (15-37); Alanine Aminotransfer ALT/SGPT 15 U/L (16-61); Albumin, Serum 2.8 g/dL (3.2-5.0); Alkaline Phosphatase 129 U/L (45-117); Anion Gap 8 (5-15); BUN 22 mg/dL (7-18); BUN/Creat Ratio 14.6 RATIO (10-20); Chloride 97 mmol/L (98-107); Creatinine, Serum 1.51 mg/dL (0.70-1.30); EST Glomerular Filtration Rate 49 mL/min (>60); Est Glom Filt Rate - Afr Amer 59 mL/min (>60); Estimated Creatinine Clearance 50.56 ml/min; Globulin 4.4 g/dL (2.2-4.2); Glucose 149 mg/dL (74-106); Protein, Total 7.2 g/dL (6.4-8.2); Sodium Level 136 mmol/L (136-145)
[2022-11-13] MEDS: Piperacil/Tazobactam 4.5 GM in 0.9% Normal Saline (100mL MB+) 100 ML IV (19:46)
[2022-11-13 19:59] LABS: Differential Comment SCANNED
[2022-11-13] MEDS: Potassium Chloride Oral Tablet 20 MEQ 40 MEQ PO (19:59)
--- NOTE | 2022-11-13 20:09 | PCM.HP.STD ---
[facility] - General General Date of Admission: 11/13/22 Date of Service: 11/13/22 Chief Complaint: Shortness of breath HPI Narrative ABDIEL CORTEZ, is a 67 M significant history of laryngeal cancer status post laryngectomy with trach; recurrence chronic left-sided pleural effusion; heart failure with preserved ejection fraction; CKD; and hypothyroidism who presents to the emergency department with 5-day history of progressive worsening shortness of breath. His shortness of breath is mild at rest and increases markedly with mild exertion. Associated with his symptoms is worsening productive cough above his baseline. Also he has hemoptysis which is about 1 tablespoon per episode and this occurred about 5 times on the day of presentation. Further patient reports fever with home temperature of about 102 Fahrenheit. He reports chills and fatigue. He reports that his appetite is fair. Of note the patient's has been down with COVID-19 infection for about 5 days. At the emergency department influenza and COVID test were negative. However chest x-ray was significant for left side pleural effusion, left perihilar/left lower lobe pneumonia. At home patient is on 2 to 4 L of oxygen at baseline but on presentation he was requiring as much as 10 L via trach mask. [facility] Medical History (HFpEF) heart failure with preserved ejection fraction Ambulates with cane Anticoagulant long-term use Anxiety Atherosclerosis of coronary artery of [place] heart without angina pectoris Back pain Benign neoplasm of colon Chronic a-fib Chronic pain Chronic renal failure, stage 3 (moderate) COPD (chronic obstructive pulmonary disease) Diabetes mellitus, type II Diverticulosis of colon (without mention of hemorrhage) Emphysema, unspecified Esophageal dysmotility Essential hypertension Former smoker Gastric reflux Gastroenteritis Gout Hiatal hernia History of colon polyps Hyperlipidemia Hypothyroidism Injury of back Injury of head and neck Laryngeal cancer Malignant neoplasm of head, neck and face Migraine headache Obesity On home oxygen therapy Recurrent left pleural effusion Type 2 diabetes mellitus without complication Walker as ambulation aid Wears glasses Home Medications levothyroxine 150 mcg tablet 150 mcg PO DAILY hypothyroidism 06/04/14 [History Last Taken 11/13/22] atorvastatin 40 mg tablet 40 mg PO DAILY@1700 cholesterol 04/12/17 [History Last Taken 11/12/22] ipratropium 0.5 mg-albuterol 3 mg (2.5 mg base)/3 mL nebulization soln 3 ml inhalation Q4H sob 04/12/17 [History Last Taken 11/13/22] flash glucose sensor (FreeStyle Zayra 2 Sensor kit) #2 ea 05/17/21 [Rx Last Taken Unknown] acetaminophen 325 mg tablet 650 mg PO DAILY PRN Pain 12/06/21 [History Last Taken 11/13/22] budesonide 0.5 mg/2 mL suspension for nebulization (Pulmicort) 0.5 mg inhalation BID sob 12/06/21 [History Last Taken 11/10/22] omeprazole 20 mg capsule,delayed release 20 mg PO DAILY GERD 12/06/21 [History Last Taken 11/12/22] diltiazem HCl 120 mg capsule,extended release 24 hr 120 mg PO BID heart #180 caps 12/14/21 [Rx Last Taken 11/12/22] apixaban 5 mg tablet (Eliquis) 5 mg PO BID blood thinner #60 tabs 12/15/21 [Rx Last Taken 11/13/22] furosemide 40 mg tablet 40 mg PO BID EDEMA #60 tabs 02/21/22 [Rx Last Taken 11/13/22] metolazone 2.5 mg tablet 2.5 mg PO MOWEFR EDEMA #30 tabs 02/21/22 [Rx Last Taken 11/13/22] spironolactone 25 mg tablet 25 mg PO Q12H fluid 02/21/22 [History Last Taken Unknown] ferrous sulfate 325 mg (65 mg iron) tablet (FeroSul) 325 mg PO DAILY iron 08/29/22 [History Last Taken 11/13/22] insulin detemir U-100 100 unit/mL (3 mL) subcutaneous pen (Levemir FlexPen) 25 unit subcut QHS dm 09/12/22 [History Last Taken 11/12/22] dulaglutide 4.5 mg/0.5 mL subcutaneous pen injector (Trulicity) 4.5 mg subcut WE DIABETES 11/13/22 [History Last Taken 11/08/22] potassium chloride 10 mEq capsule,extended release 20 meq PO DAILY mineral 11/13/22 [History Last Taken 11/13/22] Allergy/AdvReac Type Severity Reaction Status Date / Time acetaminophen [From Percocet] AdvReac Intermediate headache Verified 11/13/22 18:39 oxycodone [From Percocet] AdvReac Intermediate headache Verified 11/13/22 18:39 egg [eggs] AdvReac Vomiting Verified 11/13/22 18:39 Family History Mother Diabetes Hypertension Kidney disease Heart failure Father CVA (cerebral vascular accident) Hypertension Heart disease ischemic Brother Diabetes Surgical History History of cardiac catheterization History of exploratory laparotomy History of laryngectomy (2007) History of thyroidectomy Hx of colonoscopy Presence of tracheostomy Social History Smoking Status: Former smoker Smokeless tobacco user: snuff how long ago did patient quit smokin years ago alcohol intake: never substance use type: does not use caffeine: Yes what type of physical activity do you participate in: none frequency: does not exercise ROS ROS Narrative Pertinent positives and pertinent negatives as noted in HPI. All other systems were reviewed and are negative Vital Signs Vital Signs Vital Signs: 11/13/22 18:39 11/13/22 18:45 11/13/22 18:47 Temperature 103.0 F H Temperature Source Oral Pulse Rate 107 H Respiratory Rate 20 H Respiratory Effort Short of Breath Respiratory Pattern Normal Blood Pressure 106/85 H Blood Pressure Mean 92 Pulse Ox 100 Oxygen Delivery Method Trach Collar Trach Collar Trach Collar Oxygen Flow Rate (L/min) 8 Fraction of Inspired Oxygen (FIO2) 11/13/22 19:38 11/13/22 20:00 Temperature Temperature Source Pulse Rate 105 H 110 H Respiratory Rate 30 H 23 H Respiratory Effort Respiratory Pattern Blood Pressure 138/70 H 126/61 H Blood Pressure Mean 92 82 Pulse Ox 97 98 Oxygen Delivery Method Trach Collar Trach Collar Oxygen Flow Rate (L/min) Fraction of Inspired Oxygen (FIO2) 35 Weight Weight: 108.862 kg Body Mass Index (BMI) 33.5 Physical Exam Narrative Physical exam: General: Well-nourished, well-developed. Head: Normocephalic, atraumatic, no tenderness Eyes: Vision is grossly intact. EOMI ENT, tracheostomy hooked to trach mask. CVS: Tachycardia. Irregularly irregular rate and rhythm.. S1-S2 present. No murmur, gallop or rub. Respiratory : Rhonchi bilaterally, chest wall nontender Abdomen: Soft, nontender, nondistended, normal bowel sounds, no masses : Deferred Back: Nontender, no CVA tenderness, no midline spinal tenderness, deformities, step-offs Extremities: Bilateral leg edema; no trauma Skin: Normal color, no trauma, abrasions Neuro: Alert, oriented x3 Psychiatry: Normal mood. Normal affect. Not depressed. Not anxious. Results Lab / Micro Data 11/13/22 18:55 11/13/22 18:55 Labs: Laboratory Results - last 24 hr 11/13/22 18:55: WBC 14.3 H, RBC 3.40 L, Hgb 9.1 L, Hct 29.2 L, MCV 85.9, MCH 26.8 L, MCHC 31.2 L, RDW Std Deviation 44.1 H, RDW Coeff of Alisson 14.1, Plt Count 473 H, MPV 9.5, Immature Gran % (Auto) 0.500, Neut % (Auto) 89.8 H, Lymph % (Auto) 1.7 L, [place] % (Auto) 7.4, Eos % (Auto) 0.2, Baso % (Auto) 0.4, Absolute Neuts (auto) 12.8 H, Absolute Lymphs (auto) 0.24 L, Nucleated RBC % 0, Differential Comment SCANNED, PT 20.4 H, INR 1.7, APTT 36.4 H, Sodium 136, Potassium 3.0 L, Chloride 97 L, Carbon Dioxide 31.0, Anion Gap 8, BUN 22 H, Creatinine 1.51 H, Estim Creat Clear Calc 50.56, Est GFR (MDRD) Af Amer 59 L, Est GFR (MDRD) Non-Af 49 L, BUN/Creatinine Ratio 14.6, Glucose 149 H, Lactic Acid 1.1, Calcium 8.0 L, Total Bilirubin 0.50, AST 11 L, ALT 15 L, Alkaline Phosphatase 129 H, Total Protein 7.2, Albumin 2.8 L, Globulin 4.4 H, Albumin/Globulin Ratio 0.6 L Micro: Microbiology 11/13/22 19:00 Nasal Secretion SARS-CoV-2 & FLU Antigen (Rapid) - Final Radiology Impression Chest X-Ray 11/13/22 19:05 IMPRESSION: Mild to moderate left-sided pleural effusion with possible left perihilar/left lower lobe pneumonia. Cannot exclude superimposed basilar congestion. Electronically Signed: Stephanie Pacheco MD at 19:19 EDT , Assessment & Plan Assessment/Plan (1) Acute hypokalemia: (2) Pneumonia: (3) Morbid obesity: (4) Hypoxemia: (5) Diabetes mellitus, type II: (6) Chronic diastolic (congestive) heart failure: (7) Chronic renal failure, stage 3 (moderate): QUALIFIERS: Chronic kidney disease stage 3 subtype: stage 3a (GFR 45-59) Qualified Code(s): N18.31 - Chronic kidney disease, stage 3a (8) Chronic a-fib: PLAN: Plan Pneumonia with hypoxemia?recurrent pleural effusion Gram positive, gram-negative or atypical. Patient meets SIRS criteria with Tmax of 103.0 F; tachycardia with highest pulse rate of 107; tachypnea with highest respiratory rate of 30; and leukocytosis with white count of 14,300 Lactic acid of 1.1 Source of infection is the lungs (pneumonia) Sepsis rule out since there is no end organ damage. Blood culture ?2 is pending. Sputum culture ordered. Impression of chest x-ray by radiology: Mild to moderate left-sided pleural effusion with possible left perihilar/left lower lobe pneumonia. Cannot exclude superimposed basilar congestion. Chest x-ray was independently interpreted by hospitalist: Agrees with radiology interpretation Antibiotics started on vancomycin and Zosyn at the emergency department. Review of records show that patient was at at [facility] 09/12/2022 and was discharged on 09/22/2022. Pulmonary notes on 09/16/2022 was reviewed. At that time pulmonology made a recommendation for outpatient follow-up with thoracic surgery regarding loculated effusion and there was no need for tube thoracostomy. Review of pulmonary notes patient shows that patient 1 time had a Pleurx catheter and is recurrent pleural effusion was in the past attributed to underlying heart failure. Per infectious disease note on 09/15/2022 sputum culture was positive for Hafnia, Pseudomonas, Serratia and strep. Zosyn was changed to Merrem to cover Hafnia. On the same notes we will continue vancomycin started from the ED and order Merrem. IV hydration received 500 mL bolus normal saline at the emergency department. No more IV fluids at this time. DuoNeb scheduled. Inhaled corticosteroids continued. Albuterol nebulization as needed Legionella antigen screen and Strep antigen ordered Tylenol as needed for fever. History of chronic respiratory failure Worsened. Hypokalemia Potassium 3.0 on presentation. Replaced at the ED. Escalate home dose of potassium. Trend CMP. Increased alkaline phosphatase Mild Trend CMP. 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 Hypocalcemia Calcium level of 8.0. Albumin level of 2.8. Corrected calcium is 9.0. Trend CMP. Diabetes mellitus Blood glucose on presentation was stable. De-escalate dose of home basal insulin. Accu-Chek with correction scale insulin ordered. History of chronic heart failure with preserved ejection fraction Echocardiogram on 09/13/2022: EF was 65%. Reported there was no evidence of diastolic function. Patient with recurrent pleural effusion, acute may be chronic. Also with bilateral leg edema, may be chronic. No conclusive evidence that patient is having acute on chronic heart failure. Continue home diuretics. Cardiac and diabetic diet ordered. Chronic atrial fibrillation with RVR With mild RVR. Cardizem continued. Eliquis held secondary to hemoptysis. Hypertension Blood pressure is stable. Home blood pressure medication continued. Trend blood pressure and adjust blood pressure medications as necessary. Time spent in the patient's overall evaluation,decision-making process, review of diagnostic data, adjustment of management, discussion with other providers, nursing nursing and ancillary staff involved in patient's care documentation, 70 minutes. Charges/Coding Visit Charges Inpatient E&M: 67023 Init Hosp L3
[2022-11-13] MEDS: Vancomycin HCl 2,000 MG in 0.9% Normal Saline (500mL Bag) 500 ML 250 MG IV (20:31)
[2022-11-13] MEDS: Furosemide 40 MG Tablet PO (22:34)
[2022-11-13] MEDS: dilTIAZem CD 120 MG Capsule PO (22:34)
[2022-11-13] MEDS: Insulin Glargine-YFGN 100 UNIT/ML Pen 10 UNIT SC (22:34)
[2022-11-13] MEDS: Spironolactone 25 MG Tablet PO (22:35)
[2022-11-13] MEDS: Insulin Lispro 100 UNIT/ML INSULN.PEN SC (22:36)
[2022-11-13] MEDS: Albuterol 2.5 MG/3 ML VIAL.NEB. INHALATION (22:47)
[2022-11-13] MEDS: guaiFENesin 600 MG Tablet PO (23:48)
[2022-11-14] VITALS (11 sets, daily range): BP systolic 110–143; BP diastolic 59–72; PULSE 82–99; RESP 18–24; TEMP 37.4–37.7; O2SAT 91–98
[2022-11-14 00:11] LABS: Bedside Glucose 163 mg/dL (74-106)
--- NOTE | 2022-11-14 00:49 | PCM.RX.CS ---
Consult Antibiotic Management Pharmacy has been consulted to manage selected antiobiotic: Vancomycin Type of Intervention Type of Consult: New start Labs Labs: Sodium 136 mmol/L (136-145) 11/13/22 18:55 Potassium 3.0 mmol/L (3.5-5.1) L 11/13/22 18:55 Chloride 97 mmol/L (98-107) L 11/13/22 18:55 Carbon Dioxide 31.0 mmol/L (21.0-32.0) 11/13/22 18:55 Anion Gap 8 (5-15) 11/13/22 18:55 BUN 22 mg/dL (7-18) H 11/13/22 18:55 Creatinine 1.51 mg/dL (0.70-1.30) H 11/13/22 18:55 Est GFR (MDRD) Af Amer 59 mL/min (>60) L 11/13/22 18:55 Est GFR (MDRD) Non-Af 49 mL/min (>60) L 11/13/22 18:55 BUN/Creatinine Ratio 14.6 RATIO (10-20) 11/13/22 18:55 Glucose 149 mg/dL (74-106) H 11/13/22 18:55 Microbiology Microbiology: Microbiology 11/13/22 19:00 Nasal Secretion SARS-CoV-2 & FLU Antigen (Rapid) - Final Dosing Weight Weight used for dosin.9 kg Estimated Creatinine Clearance Estimated Creatinine Clearance: 78.6 Pharmacy Plan for Drug Dosing Pharmacy Plan for Drug Dosing: Pharmacy Service will continue to monitor and adjust dosing as required. Follow-Up Labs Follow-Up Labs: Trough: Vancomycin Date/Time Labs Ordered Labs to be done on [date and time ordered]: 11/15 @ 0800
[2022-11-14] MEDS: Albuterol 2.5 MG/3 ML VIAL.NEB. INHALATION (04:14)
[2022-11-14] MEDS: Acetaminophen 325 MG Tablet 650 MG PO ×2 (04:30→14:22)
[2022-11-14] MEDS: Levothyroxine 150 MCG Tablet PO (04:30)
--- NOTE | 2022-11-14 04:39 | NURSING ---
Pt called out- needing suctioned. this selling underwriter suctioned pt per protocol and called respiratory therapy to obtain a breathing treatment. Patient's spo2 decreased to the low 80's and respiratory provided the breathing tx and increased pt's O2 to 12 L at 40%. Following respiratory treatment patient's spo2 recovered quickly to 93%. Pt states it is due to taking Mucinex as he experiences an exceptional increase in sputum whenever he takes it.
[2022-11-14] MEDS: Meropenem 500 MG in 0.9% Normal Saline (50mL MB+) 50 ML 100 MG IV ×3 (05:20→22:54)
[2022-11-14] MEDS: 0.9% Saline Lock 10 ML Syringe IV (05:24)
[2022-11-14 06:11] LABS: Bedside Glucose 135 mg/dL (74-106)
[2022-11-14 06:44] LABS: Absolute Lymphocyte Count 0.38 X10^3/uL (0.83-4.51); Absolute Neutrophil Count 11.3 X10^3/uL (2.0-7.7); Basophil# 0.02 X10^3/uL; Basophil% 0.2 % (0-1); Hematocrit 28.7 % (40-54); Hemoglobin 8.8 g/dL (13.0-16.5); Lymphocyte # 0.38 X10^3/ul (0.83-4.51); Mean Corp Hgb Conc 30.7 g/dL (32-36); Mean Corpuscular Hgb 26.6 pg (27.0-32.0); Mean Corpuscular Volume 86.7 fL (80-94); Mean Platelet Vol. 9.1 fl (6.2-12.0); Monocyte# 1.12 X10^3/uL; Monocyte% 8.7 % (0-10); NRBC Flagged by Analyzer 0 % (0-5); Neutrophil # 11.26 X10^3/uL (2.7-7.7); Neutrophil % 87.6 % (47-70); POSITIVE DIFFERENTIAL YES; Platelet Count 409 K/mm3 (150-450); RBC Distribution Width CV 14.3 % (11.6-14.6); RBC Distribution Width SD 45.4 fl (35.1-43.9); Red Blood Count 3.31 M/mm3 (4.6-6.2); White Blood Count 12.8 K/mm3 (4.4-11.0)
[2022-11-14 06:51] LABS: Differential Indicated SCAN CRITERIA MET
[2022-11-14 07:10] LABS: Differential Comment SCANNED
[2022-11-14 07:14] LABS: ALB/GLOB Ratio 0.6 RATIO (0.9-2.4); AST(SGOT) 13 U/L (15-37); Alanine Aminotransfer ALT/SGPT 15 U/L (16-61); Albumin, Serum 2.7 g/dL (3.2-5.0); Alkaline Phosphatase 122 U/L (45-117); Anion Gap 6 (5-15); BUN 23 mg/dL (7-18); BUN/Creat Ratio 14.9 RATIO (10-20); Chloride 101 mmol/L (98-107); Creatinine, Serum 1.54 mg/dL (0.70-1.30); EST Glomerular Filtration Rate 48 mL/min (>60); Est Glom Filt Rate - Afr Amer 58 mL/min (>60); Estimated Creatinine Clearance 49.58 ml/min; Globulin 4.4 g/dL (2.2-4.2); Glucose 137 mg/dL (74-106); Potassium 3.2 mmol/L (3.5-5.1); Protein, Total 7.1 g/dL (6.4-8.2); Sodium Level 137 mmol/L (136-145)
[2022-11-14] MEDS: Budesonide Respules 0.5 MG/2 ML AMPUL.NEB. INHALATION ×2 (07:16→19:25)
[2022-11-14] MEDS: Ipratropium/Albuterol Sulfate 3 ML AMPUL.NEB INHALATION ×4 (07:17→19:24)
--- NOTE | 2022-11-14 07:48 | PCM.PN.HOSP ---
Reason for Visit Reason for Visit: Shortness of breath/cough/blood-tinged sputum Subjective Subjective Patient is a 67-year-old male who presented to the emergency department at [facility] on 11/13/2022 complaining of shortness of breath, cough, and blood-tinged sputum. The patient is on Eliquis at baseline for atrial fibrillation and has a tracheostomy due to history of laryngeal cancer. This was placed in 2006. Patient reported that his has COVID and that over the last 5 days he has been feeling unwell however on the day of presentation he was more short of breath and spiked a fever. He denied any nausea or vomiting and reported he just has some blood-tinged sputum coming from his tracheostomy tube. He complained of some mild chest pain and had a temperature of 103. He typically wears trach collar at 2 to 4 L. On presentation he was not in any respiratory distress but had diminished breath sounds at the left base. He does have a chronic left-sided pleural effusion for which he follows as an outpatient. His CBC showed a leukocytosis with a left shift, chronic stable anemia, and mild thrombocytosis. Coags are elevated due to his Eliquis use at baseline. His chemistry panel showed mild hypokalemia with potassium of 3.0 stable CKD with a serum creatinine of 1.51 and a serum glucose of 149. His rapid COVID was negative. Blood and urine cultures are pending. Sputum culture is yet been collected. He was admitted to the medical floor and placed on vancomycin and meropenem. Patient still with low-grade temperature elevations today. Respiratory viral panel PCR and COVID PCR pending. Patient did confirm that he had exposure at home. Still states he is feeling poorly. Appetite is poor. Still with some cough productive of blood-tinged sputum. No acute needs identified at this time. 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 Objective Data Objective Data Vital Signs: Vital Signs Temp Pulse Resp BP Pulse Ox O2 Del Method O2 Flow Rate 99.7 F H 88 20 H 118/68 93 Trach Collar 12 11/14/22 04:40 11/14/22 07:17 11/14/22 07:17 11/14/22 04:40 11/14/22 07:17 11/14/22 07:17 11/14/22 07:17 FiO2 40 11/14/22 07:17 Oxygen Flow Rate (L/min) 12 Oxygen Delivery Method Trach Collar Weight: 117.9 kg Body Mass Index (BMI) 36.2 Intake & Output: Intake and Output for Last 24 Hours 11/12/22 11/13/22 11/14/22 23:59 23:59 23:59 Intake Total 1140 / 1140 60 / 60 Output Total 500 / 500 Balance 1140 / 1140 -440 / -440 Lab / Micro Data 11/14/22 06:20 11/14/22 06:20 Labs: Laboratory Results - last 24 hr 11/13/22 18:55: WBC 14.3 H, RBC 3.40 L, Hgb 9.1 L, Hct 29.2 L, MCV 85.9, MCH 26.8 L, MCHC 31.2 L, RDW Std Deviation 44.1 H, RDW Coeff of Alisson 14.1, Plt Count 473 H, MPV 9.5, Immature Gran % (Auto) 0.500, Neut % (Auto) 89.8 H, Lymph % (Auto) 1.7 L, [place] % (Auto) 7.4, Eos % (Auto) 0.2, Baso % (Auto) 0.4, Absolute Neuts (auto) 12.8 H, Absolute Lymphs (auto) 0.24 L, Nucleated RBC % 0, Differential Comment SCANNED, PT 20.4 H, INR 1.7, APTT 36.4 H, Sodium 136, Potassium 3.0 L, Chloride 97 L, Carbon Dioxide 31.0, Anion Gap 8, BUN 22 H, Creatinine 1.51 H, Estim Creat Clear Calc 50.56, Est GFR (MDRD) Af Amer 59 L, Est GFR (MDRD) Non-Af 49 L, BUN/Creatinine Ratio 14.6, Glucose 149 H, Lactic Acid 1.1, Calcium 8.0 L, Total Bilirubin 0.50, AST 11 L, ALT 15 L, Alkaline Phosphatase 129 H, Total Protein 7.2, Albumin 2.8 L, Globulin 4.4 H, Albumin/Globulin Ratio 0.6 L 11/13/22 22:33: POC Glucose 163 H 11/14/22 05:22: POC Glucose 135 H 11/14/22 06:20: WBC 12.8 H, RBC 3.31 L, Hgb 8.8 L, Hct 28.7 L, MCV 86.7, MCH 26.6 L, MCHC 30.7 L, RDW Std Deviation 45.4 H, RDW Coeff of Alisson 14.3, Plt Count 409, MPV 9.1, Immature Gran % (Auto) 0.500, Neut % (Auto) 87.6 H, Lymph % (Auto) 3.0 L, [place] % (Auto) 8.7, Eos % (Auto) 0.0, Baso % (Auto) 0.2, Absolute Neuts (auto) 11.3 H, Absolute Lymphs (auto) 0.38 L, Nucleated RBC % 0, Differential Comment SCANNED, Sodium 137, Potassium 3.2 L, Chloride 101, Carbon Dioxide 30.0, Anion Gap 6, BUN 23 H, Creatinine 1.54 H, Estim Creat Clear Calc 49.58, Est GFR (MDRD) Af Amer 58 L, Est GFR (MDRD) Non-Af 48 L, BUN/Creatinine Ratio 14.9, Glucose 137 H, Calcium 8.0 L, Total Bilirubin 0.50, AST 13 L, ALT 15 L, Alkaline Phosphatase 122 H, Total Protein 7.1, Albumin 2.7 L, Globulin 4.4 H, Albumin/Globulin Ratio 0.6 L Micro: Microbiology 11/13/22 02:44 Urine, Clean Catch Legionella Antigen - Final 11/13/22 02:44 Urine, Clean Catch Streptococcus pneumoniae Antigen (M - Final 11/13/22 19:00 Nasal Secretion SARS-CoV-2 & FLU Antigen (Rapid) - Final Radiography Diagnostic Testing: Radiology Impression Chest X-Ray 11/13/22 19:05 IMPRESSION: Mild to moderate left-sided pleural effusion with possible left perihilar/left lower lobe pneumonia. Cannot exclude superimposed basilar congestion. Electronically Signed: Stephanie Pacheco MD at 19:19 EDT , Physical Exam Const alert, oriented x3, no apparent distress and well nourished; Negative for average body habitus or healthy appearing Constitutional Narrative: Obese, upper middle-aged, white male sitting up in bed sleeping but awakens easily, appears older than stated age, appears significantly fatigued but nontoxic HEENT head/scalp atraumatic HEENT Narrative: Mallampati 3-4, no thrush Eyes PERRL and EOMs intact bilaterally Eyes Narrative: No scleral icterus Resp normal respiratory effort, no retractions, no use of accessory muscles and No clear to auscultation bilaterally Resp Narrative: Scattered rhonchi with diminished sounds at the left base and intermittent cough with deep breathing, no signs of respiratory distress or tachypnea Auscultation: rhonchi; Negative for crackles or wheezes Cardio regular rate, regular rhythm, S1 normal heart sound, S2 normal heart sound, no murmurs, no rub and no gallops Cardio Narrative: Distant heart tones due to body habitus GI normal to inspection, nondistended, normoactive bowel sounds, soft to palpation and non-tender GI Narrative: Large protuberant abdomen Extremity Extremity Narrative: 1+ to 2+ bilateral lower extremity pitting edema, hands and distal arms also appear to have some pitting that is trace, no cyanosis or clubbing Neuro oriented x3, moves all extremities and no focal motor deficits Neuro Narrative: Significant generalized weakness noted but no focal deficits Speech: speech normal Psych Negative for affect normal Psych Narrative: Affect is flattened patient appears significantly fatigued but eye contact is good and no signs of depression Assessment & Plan Assessment/Plan (1) Acute hypokalemia: (2) HAP (hospital-acquired pneumonia): (3) Leukocytosis: (4) Thrombocytosis: PLAN: Plan Chronic hypoxic respiratory failure with acute hypoxia -Suspect at least viral pneumonia with potential superimposed bacterial pneumonia -Start Decadron 6 mg daily if COVID PCR is positive -Rapid COVID is negative but will assess COVID PCR as he has been exposed in the home -Check respiratory viral panel -Legionella and strep pneumo are negative -Sputum culture is to be collected -Blood and urine cultures are pending -Check MRSA PCR -Continue aggressive pulmonary toilet -Supplemental oxygen via trach mask as needed and wean as able -We will continue vancomycin and Meropenem for now and monitor culture and sensitivities Blood-tinged sputum -Suspect related to acute infection -Monitor clinically -Hemoglobin stable -We will continue Eliquis for now and monitor closely Recurrent left pleural effusion -Left effusion is stable compared to previous -Recommend continued outpatient follow-up -Patient has had previous Pleurx catheter and been evaluated by pulmonary medicine Hypokalemia -Slightly improved from yesterday -Repeat oral replacement -Repeat a.m. BMP and magnesium level Thrombocytosis -Suspect related to acute infection -Trending down -Continue to monitor Leukocytosis -Trending down with antibiotic use -Continue to monitor CKD stage IIIa -Monitor with vancomycin use -Avoid nephrotoxins -Renal function is currently at baseline -Baseline serum creatinine appears to run between 1.45 and 1.6 -Continue home diuretics as ordered -Continue patient for up with Dr. Ballard after discharge Stent atrial fibrillation -Continue home Cardizem -Continue home Eliquis Chronic diastolic heart failure -Maintain rate control with atrial fibrillation -Continue home metolazone Sunday -Continue home Lasix but increase to 40 mg 3 times daily as patient indicates his swelling has worsened -Will need to monitor renal function closely -Home Aldactone is on hold Hyperlipidemia -Continue home atorvastatin Hypothyroidism -Continue home levothyroxine DM-2 -Hold home Trulicity -Continue home insulin -SSI -Accu-Cheks as ordered -Cardiac/carb controlled diet -If need to start Decadron may need to adjust insulin requirements GERD -Continue home PPI Chronic anemia -Hemoglobin is stable -Continue home iron supplementation -Monitor with CBC Obesity -BMI is 36.3 -Recommend weight loss -Complicates treatment, prognosis, outcomes DVT prophylaxis -Continue full anticoagulation with Eliquis CODE STATUS -Full code is verified on admission Charges/Coding Visit Charges Inpatient E&M: 76664 [facility] Hosp L3
[2022-11-14] MEDS: Ondansetron 4 MG/2 ML Vial IV (08:35)
[2022-11-14] MEDS: Vancomycin HCl 1,750 MG in 0.9% Normal Saline (500mL Bag) 500 ML 250 MG IV ×2 (08:35→20:32)
[2022-11-14] MEDS: Pantoprazole Sodium 20 MG Tablet PO (09:59)
[2022-11-14] MEDS: dilTIAZem CD 120 MG Capsule PO ×2 (09:59→20:35)
[2022-11-14] MEDS: Furosemide 40 MG Tablet PO ×3 (10:00→20:35)
[2022-11-14] MEDS: Ferrous Sulfate 325 MG Tablet PO (10:00)
[2022-11-14] MEDS: guaiFENesin 600 MG Tablet PO ×2 (10:00→20:35)
[2022-11-14 10:29] LABS: M R Staph aureus DNA By PCR Negative (Negative); Probe Check PASS; Specimen Processing Control PASS
[2022-11-14] MEDS: Potassium Chloride Oral Tablet 20 MEQ 60 MEQ PO (10:31)
[2022-11-14 11:45] LABS: Bedside Glucose 189 mg/dL (74-106)
[2022-11-14] MEDS: Insulin Lispro 100 UNIT/ML INSULN.PEN SC (12:21)
--- NOTE | 2022-11-14 14:22 | CASEMGMT ---
ANUSHA EDGAR assessment: RN TALA met w/with patient for initial transition planning/care coordination assessment. Pt is known to this RN TALA and made aware of role at [facility]. Patient sitting up in chair in room, alert and oriented. Patient willing to participate in assessment and is able to answer all questions appropriately. Care providers, pharmacy, and demographics verified. Patient wishes to discharge home, denies need for home health at this time. Patient states he has no further needs or concerns at this time. CM to follow for discharge planning needs that may arise. PCP: Dr Sin Specialists: Dr Ballard-nephrology, [facility]/cardiology, Dr Constance Grace/[facility] Pulmonology Preferred Pharmacy: [facility] Retail Insurance: [employer] Prescription Benefit: yes Living Will/HPOA: yes, Manuela Chow. LNOK: , Manuela. 7 living adult children. Living Arrangements: Patent lives with and youngest son in a one-story home with 4 steps and railing to enter the home. Patient states he is independent at home. Transportation: self, . Pt denies having transportation concerns. He states his will most likely be the one to take him home @ discharge. DME/HHC: Patient has raised toilet, cane, walker, nebulizer, pulse ox, sufficient trach supplies, suction machine, and home oxygen with portability through [employer] at 4lpm. Patient knows to have family bring portable tank at discharge and states they do have tanks that have enough oxygen in them for to bring in. Pt has a CGM system and states he has all needed supplies for it. He also states he has all needed medications, insulin, and diabetic supplies and denies having financial issues to get what is needed. He had a back-up glucometer but states it doesn't work well. RN TALA made him aware of options to get OTC ones at minimal cost, if needed in the future. He voices appreciation. Patient denies previous HHC or SNF. ANUSHA EDGAR noted in pt's chart concerns of pt not having heat in the home and needing assistance w/food and transportation. Gregoria ROBERTSON, aware. Pt informed this RN TALA that the heat is not on just because he hasn't turned it on yet, not d/t it being disconnected. He states they have plenty of food in the home, he does not have concerns or financial difficulties w/getting his medications, and denies concerns or needs. Plan: Patient to discharge home with family support and follow-up plans in place. CM to follow for any increase in home oxygen needs @ discharge. Lalit DURHAM RN CM
[2022-11-14] MEDS: Atorvastatin Calcium 40 MG Tablet PO (16:28)
[2022-11-14 16:56] LABS: Bedside Glucose 145 mg/dL (74-106)
[2022-11-14] MEDS: Insulin Glargine-YFGN 100 UNIT/ML Pen 10 UNIT SC (20:39)
[2022-11-14 22:23] LABS: Bedside Glucose 116 mg/dL (74-106)
[2022-11-15] VITALS (11 sets, daily range): BP systolic 118–145; BP diastolic 49–79; PULSE 88–105; RESP 16–22; TEMP 36.6–37.3; O2SAT 92–98
[2022-11-15] MEDS: Furosemide 40 MG Tablet PO ×3 (05:46→21:34)
[2022-11-15] MEDS: Meropenem 500 MG in 0.9% Normal Saline (50mL MB+) 50 ML 100 MG IV ×3 (05:47→21:33)
[2022-11-15] MEDS: Levothyroxine 150 MCG Tablet PO (05:47)
[2022-11-15] MEDS: Acetaminophen 325 MG Tablet 650 MG PO (05:47)
[2022-11-15 06:47] LABS: Bedside Glucose 133 mg/dL (74-106)
[2022-11-15 07:06] LABS: Bedside Glucose 140 mg/dL (74-106)
[2022-11-15] MEDS: Ipratropium/Albuterol Sulfate 3 ML AMPUL.NEB INHALATION ×4 (07:42→19:09)
[2022-11-15] MEDS: Budesonide Respules 0.5 MG/2 ML AMPUL.NEB. INHALATION ×2 (07:43→19:09)
[2022-11-15] MEDS: Potassium Chloride Oral Tablet 20 MEQ PO (08:19)
[2022-11-15 08:20] LABS: Absolute Lymphocyte Count 0.44 X10^3/uL (0.83-4.51); Absolute Neutrophil Count 8.1 X10^3/uL (2.0-7.7); Basophil# 0.02 X10^3/uL; Basophil% 0.2 % (0-1); Hematocrit 27.5 % (40-54); Hemoglobin 8.5 g/dL (13.0-16.5); Lymphocyte # 0.44 X10^3/ul (0.83-4.51); Lymphocyte % 4.4 % (19-41); Mean Corp Hgb Conc 30.9 g/dL (32-36); Mean Corpuscular Hgb 27.2 pg (27.0-32.0); Mean Corpuscular Volume 88.1 fL (80-94); Mean Platelet Vol. 9.2 fl (6.2-12.0); Monocyte# 1.29 X10^3/uL; NRBC Flagged by Analyzer 0 % (0-5); Neutrophil # 8.12 X10^3/uL (2.7-7.7); Neutrophil % 81.5 % (47-70); POSITIVE DIFFERENTIAL YES; Platelet Count 330 K/mm3 (150-450); RBC Distribution Width CV 14.5 % (11.6-14.6); RBC Distribution Width SD 46.4 fl (35.1-43.9); Red Blood Count 3.12 M/mm3 (4.6-6.2)
[2022-11-15] MEDS: Ferrous Sulfate 325 MG Tablet PO (08:23)
[2022-11-15 08:25] LABS: Differential Indicated SCAN CRITERIA MET
[2022-11-15 08:46] LABS: Vancomycin, Trough Level 29.8 ug/mL (5.0-15.0)
[2022-11-15 08:48] LABS: ALB/GLOB Ratio 0.6 RATIO (0.9-2.4); AST(SGOT) 16 U/L (15-37); Alanine Aminotransfer ALT/SGPT 13 U/L (16-61); Albumin, Serum 2.5 g/dL (3.2-5.0); Alkaline Phosphatase 98 U/L (45-117); Anion Gap 6 (5-15); BUN 29 mg/dL (7-18); Calcium,Total 7.8 mg/dL (8.5-10.1); Chloride 102 mmol/L (98-107); Creatinine, Serum 1.81 mg/dL (0.70-1.30); EST Glomerular Filtration Rate 40 mL/min (>60); Est Glom Filt Rate - Afr Amer 48 mL/min (>60); Estimated Creatinine Clearance 42.18 ml/min; Globulin 4.1 g/dL (2.2-4.2); Glucose 132 mg/dL (74-106); Magnesium 1.9 mg/dL (1.6-2.6); Potassium 3.4 mmol/L (3.5-5.1); Protein, Total 6.6 g/dL (6.4-8.2); Sodium Level 138 mmol/L (136-145)
--- NOTE | 2022-11-15 09:26 | PCM.RX.CS ---
Consult Antibiotic Management Pharmacy has been consulted to manage selected antiobiotic: Vancomycin Type of Intervention Type of Consult: Follow-up Suspected Infection Suspected Infection: Pneumonia Prior Doses of Antibiotics Prior Doses of Antibiotics Received/Current Regimen: Received 2000mg iv loading dose x1. Current order of 1750mg iv q12h. Labs Labs: Sodium 138 mmol/L (136-145) 11/15/22 08:05 Potassium 3.4 mmol/L (3.5-5.1) L 11/15/22 08:05 Chloride 102 mmol/L (98-107) 11/15/22 08:05 Carbon Dioxide 30.0 mmol/L (21.0-32.0) 11/15/22 08:05 Anion Gap 6 (5-15) 11/15/22 08:05 BUN 29 mg/dL (7-18) H 11/15/22 08:05 Creatinine 1.81 mg/dL (0.70-1.30) H 11/15/22 08:05 Est GFR (MDRD) Af Amer 48 mL/min (>60) L 11/15/22 08:05 Est GFR (MDRD) Non-Af 40 mL/min (>60) L 11/15/22 08:05 BUN/Creatinine Ratio 16.0 RATIO (10-20) 11/15/22 08:05 Glucose 132 mg/dL (74-106) H 11/15/22 08:05 Vancomycin Trough 29.8 ug/mL (5.0-15.0) H 11/15/22 08:05 Microbiology Microbiology: Microbiology 11/13/22 18:55 Blood Culture (Wb) - Venous Blood Culture - Preliminary Coag Negative Staph 11/14/22 09:10 Mucosa - Nasopharyngeal Respiratory Panel (PCR) - Final 11/14/22 09:10 Mucosa - Nose Coronavirus COVID-19 PCR - Final 11/13/22 02:44 Urine, Clean Catch Legionella Antigen - Final 11/13/22 02:44 Urine, Clean Catch Streptococcus pneumoniae Antigen (M - Final 11/13/22 19:00 Nasal Secretion SARS-CoV-2 & FLU Antigen (Rapid) - Final Dosing Weight Weight used for dosin.9 kg Estimated Creatinine Clearance Estimated Creatinine Clearance: 52ml/min Goal Trough Goal Trough: 15-20 mcg/mL Pharmacy Plan for Drug Dosing Pharmacy Plan for Drug Dosing: Trough today 29.8 and above goal of 15-20mcg/ml. Renal CrCl estimated to be ~52ml/min from calculated adjusted body weight of 92kg. Will hold further dosing until level /=20. Random level has been ordered for tomorrow AM. Pharmacy Service will continue to monitor and adjust dosing as required. Follow-Up Labs Follow-Up Labs: Trough: Vancomycin (random 10.12.23 0800)
[2022-11-15] MEDS: 0.9% Normal Saline (250mL Bag) 250 ML 15 ML IV (09:50)
[2022-11-15] MEDS: Metolazone 2.5 MG Tablet PO (10:00)
[2022-11-15] MEDS: dilTIAZem CD 120 MG Capsule PO ×2 (10:01→21:34)
[2022-11-15] MEDS: guaiFENesin 600 MG Tablet PO ×2 (10:02→21:34)
[2022-11-15] MEDS: Flu Vacc QS2023-24(65YR UP)/PF 240 MCG/0.7 ML Syringe IM (10:02)
[2022-11-15] MEDS: Pantoprazole Sodium 20 MG Tablet PO (10:02)
[2022-11-15] MEDS: Potassium Chloride Oral Tablet 20 MEQ 40 MEQ PO (10:14)
--- NOTE | 2022-11-15 10:23 | PN.HOSP_ITS ---
Reason for Visit Reason for Visit: Shortness of breath/cough/blood-tinged sputum Subjective Subjective Patient reports that he is still little bit better today. No more blood-tinged sputum. Working with physical therapy this morning and appears as if he has m ore energy. Respiratory viral panel and COVID PCR were both negative. He has 1 culture positive for coag negative staph and I suspect that this is contaminant. Awaiting finalized sputum culture. Patient states he intends to go home but will need some strengthening. We will continue to monitor with physical and Occupational Therapy for discharge needs with regards to rehab. Objective Data Objective Data Vital Signs: Vital Signs Temp Pulse Resp BP Pulse Ox O2 Del Method O2 Flow Rate 98.2 F 88 20 H 135/77 H 96 Nasal Cannula 8 11/15/22 08:37 11/15/22 08:37 11/15/22 08:37 11/15/22 08:37 11/15/22 08:37 11/15/22 09:10 11/15/22 09:10 FiO2 30 11/15/22 08:37 Oxygen Flow Rate (L/min) 8 Oxygen Delivery Method Nasal Cannula Weight: 117.9 kg Body Mass Index (BMI) 36.2 Intake & Output: Intake and Output for Last 24 Hours 11/13/22 11/14/22 11/15/22 23:59 23:59 23:59 Intake Total 1140 / 1140 2340 / 2440 570 / 570 Output Total 1750 / 2100 1100 / 1100 Balance 1140 / 1140 590 / 340 -530 / -530 Lab / Micro Data 11/15/22 08:05 11/15/22 08:05 Labs: Laboratory Results - last 24 hr 11/14/22 08:50: MRSA (PCR) Negative 11/14/22 11:27: POC Glucose 189 H 11/14/22 16:25: POC Glucose 145 H 11/14/22 20:38: POC Glucose 116 H 11/15/22 05:35: POC Glucose 133 H 11/15/22 06:44: POC Glucose 140 H 11/15/22 08:05: WBC 10.0, RBC 3.12 L, Hgb 8.5 L, Hct 27.5 L, MCV 88.1, MCH 27.2, MCHC 30.9 L, RDW Std Deviation 46.4 H, RDW Coeff of Alisson 14.5, Plt Count 330, MPV 9.2, Immature Gran % (Auto) 0.900, Neut % (Auto) 81.5 H, Lymph % (Auto) 4.4 L, [place] % (Auto) 13.0 H, Eos % (Auto) 0.0, Baso % (Auto) 0.2, Absolute Neuts (auto) 8.1 H, Absolute Lymphs (auto) 0.44 L, Nucleated RBC % 0, Differential Comment CO MMENT, Sodium 138, Potassium 3.4 L, Chloride 102, Carbon Dioxide 30.0, Anion Gap 6, BUN 29 H, Creatinine 1.81 H, Estim Creat Clear Calc 42.18, Est GFR (MDRD) Af Amer 48 L, Est GFR (MDRD) Non-Af 40 L, BUN/Creatinine Ratio 16.0, Glucose 132 H, Calcium 7.8 L, Phosphorus 4.0, Magnesium 1.9, Total Bilirubin 0.40, AST 16, ALT 13 L, Alkaline Phosphatase 98, Total Protein 6.6, Albumin 2.5 L, Globulin 4.1, Albumin/Globulin Ratio 0.6 L, Vancomycin Trough 29.8 H Micro: Microbiology 11/13/22 18:55 Blood Culture (Wb) - Venous Blood Culture - Preliminary Coag Negative Staph 11/14/22 09:10 Mucosa - Nasopharyngeal Respiratory Panel (PCR) - Final 11/14/22 09:10 Mucosa - Nose Coronavirus COVID-19 PCR - Final 11/13/22 02:44 Urine, Clean Catch Legionella Antigen - Final 11/13/22 02:44 Urine, Clean Catch Streptococcus pneumoniae Antigen (M - Final 11/13/22 19:00 Nasal Secretion SARS-CoV-2 & FLU Antigen (Rapid) - Final Physical Exam Const alert, oriented x3, no apparent distress and well nourished; Negative for average body habitus or healthy appearing Constitutional Narrative: Obese, upper middle-aged, white male sitting up in a chair at the bedside, 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, appears much less fatigued and more well-appearing today, more interactive and remains nontoxic-appearing HEENT head/scalp atraumatic and moist oral mucous membranes HEENT Narrative: Mallampati 3-4, no thrush Head and Scalp: normocephalic Resp normal respiratory effort, no retractions, no use of accessory muscles and No clear to auscultation bilaterally Resp Narrative: Still with scattered rhonchi, no other adventitious sounds noted at this time, some yellowish appearing sputum coming from his tracheostomy site Auscultation: rhonchi; Negative for crackles or wheezes Cardio regular rate, regular rhythm, S1 normal heart sound, S2 normal heart sound, no murmurs, no rub and no gallops Cardio Narrative: Distant heart tones due to body habitus GI normal to inspection, nondistended, normoactive bowel sounds, soft to palpation and non-tender GI Narrative: Large protuberant abdomen Extremity Extremity Narrative: 1+ to 2+ bilateral lower extremity pitting edema, hands and distal arms also appear to have some pitting that is trace, no cyanosis or clubbing Neuro oriented x3, moves all extremities and no focal motor deficits Neuro Narrative: Significant generalized weakness noted but no focal deficits Speech: speech normal Psych Psych Narrative: Affect is less flat today and is more interactive which I think reflects on how he is feeling today compared to yesterday Assessment & Plan Assessment/Plan (1) Acute hypokalemia: (2) HAP (hospital-acquired pneumonia): (3) Leukocytosis: (4) Thrombocytosis: PLAN: Plan Chronic hypoxic respiratory failure with acute hypoxia -Likely related to bacterial pneumonia -Rapid COVID and PCR both negative -Check respiratory viral panel -Legionella and strep pneumo are negative -1 of 2 blood cultures positive for coag negative staph which is contaminant -Urine culture remains pending -Sputum culture remains pending -MRSA PCR is negative so I think we can discontinue vancomycin at this time given we know his blood cultures are coag negative staph -Continue aggressive pulmonary toilet -Supplemental oxygen via trach mask as needed and wean as able -Continue meropenem but discontinue vancomycin Blood-tinged sputum -Suspect related to acute infection -Now resolved Hypokalemia -Improving and now only mild at 3.4 -We will give 40 mill equivalent p.o. potassium -Recheck in a.m. -Magnesium level was normal at 1.9 1 of 2 blood cultures positive for coag negative staph -Likely contaminant -Patient clinically improving -No further assessment required -We will discontinue vancomycin Recurrent left pleural effusion -Left effusion is stable compared to previous -Recommend continued outpatient follow-up -Patient has had previous Pleurx catheter and been evaluated by pulmonary medicine Thrombocytosis -Resolved -Likely related to acute infection on presentation Leukocytosis -Total white count has normalized and left shift is improving -Continue antibiotics with meropenem and discontinue vancomycin based on negative MRSA PCR and the fact the blood cultures are coag negative staph in 1 of 2 bottles CKD stage IIIa -Discontinue vancomycin -Avoid nephrotoxins as able -Renal function is currently at baseline -Baseline serum creatinine appears to run between 1.45 and 1.6 -Continue with 3 times daily diuretics today however with jump in serum creatinine may need to back off tomorrow and hold -Continue patient for up with Dr. Ballard after discharge Permanent atrial fibrillation -Continue home Cardizem -Continue home Eliquis Chronic diastolic heart failure -Maintain rate control with atrial fibrillation -Continue home metolazone Sunday -Continue Lasix 40 mg p.o. 3 times daily -Slight bump in renal function today -Will continue 3 times daily today but monitor renal function closely as patient is still markedly edematous -Home Aldactone is on hold Hyperlipidemia -Continue home atorvastatin Hypothyroidism -Continue home levothyroxine DM-2 -Fasting blood sugar well controlled at 132 this morning -Hold home Trulicity -Continue home insulin -SSI -Accu-Cheks as ordered -Cardiac/carb controlled diet -If need to start Decadron may need to adjust insulin requirements GERD -Continue home PPI Chronic anemia -Hemoglobin is relatively stable -Continue home iron supplementation -Monitor with CBC Obesity -BMI is 36.3 -Recommend weight loss -Complicates treatment, prognosis, outcomes DVT prophylaxis -Continue full anticoagulation with Eliquis CODE STATUS -Full code is verified on admission Charges/Coding Visit Charges Inpatient E&M: 84556 Subs Hosp L2
[2022-11-15 12:46] LABS: Bedside Glucose 110 mg/dL (74-106)
[2022-11-15 16:33] LABS: Bedside Glucose 98 mg/dL (74-106)
[2022-11-15] MEDS: Atorvastatin Calcium 40 MG Tablet PO (18:00)
[2022-11-15] MEDS: 0.9% Saline Lock 10 ML Syringe IV ×2 (18:12→21:33)
[2022-11-15] MEDS: Insulin Glargine-YFGN 100 UNIT/ML Pen 10 UNIT SC (21:33)
[2022-11-15 21:58] LABS: Bedside Glucose 147 mg/dL (74-106)
[2022-11-16] VITALS (13 sets, daily range): BP systolic 119–143; BP diastolic 68–88; PULSE 78–95; RESP 18–26; TEMP 36.6–37.7; O2SAT 89–99
[2022-11-16] MEDS: Albuterol 2.5 MG/3 ML VIAL.NEB. INHALATION (03:53)
[2022-11-16] MEDS: Acetaminophen 325 MG Tablet 650 MG PO (04:49)
[2022-11-16] MEDS: Furosemide 40 MG Tablet PO ×3 (04:50→20:49)
[2022-11-16] MEDS: Levothyroxine 150 MCG Tablet PO (04:50)
[2022-11-16] MEDS: Meropenem 500 MG in 0.9% Normal Saline (50mL MB+) 50 ML 100 MG IV ×3 (06:11→20:52)
[2022-11-16 06:30] LABS: Bedside Glucose 125 mg/dL (74-106)
[2022-11-16 06:53] LABS: Absolute Lymphocyte Count 0.53 X10^3/uL (0.83-4.51); Absolute Neutrophil Count 5.3 X10^3/uL (2.0-7.7); Basophil# 0.02 X10^3/uL; Basophil% 0.3 % (0-1); Eosinophil# 0.01 X10^3/uL; Eosinophils% 0.1 % (0-5); Hematocrit 27.5 % (40-54); Hemoglobin 8.4 g/dL (13.0-16.5); Lymphocyte # 0.53 X10^3/ul (0.83-4.51); Lymphocyte % 7.7 % (19-41); Mean Corp Hgb Conc 30.5 g/dL (32-36); Mean Corpuscular Hgb 26.7 pg (27.0-32.0); Mean Corpuscular Volume 87.3 fL (80-94); Mean Platelet Vol. 9.6 fl (6.2-12.0); Monocyte# 0.95 X10^3/uL; Monocyte% 13.9 % (0-10); NRBC Flagged by Analyzer 0 % (0-5); Neutrophil # 5.28 X10^3/uL (2.7-7.7); Neutrophil % 77.1 % (47-70); POSITIVE DIFFERENTIAL YES; Platelet Count 317 K/mm3 (150-450); RBC Distribution Width CV 14.4 % (11.6-14.6); RBC Distribution Width SD 46.4 fl (35.1-43.9); Red Blood Count 3.15 M/mm3 (4.6-6.2); White Blood Count 6.9 K/mm3 (4.4-11.0)
[2022-11-16 06:58] LABS: Differential Indicated SCAN CRITERIA MET
[2022-11-16 07:19] LABS: Anion Gap 8 (5-15); BUN 30 mg/dL (7-18); BUN/Creat Ratio 19.1 RATIO (10-20); Chloride 98 mmol/L (98-107); Creatinine, Serum 1.57 mg/dL (0.70-1.30); Differential Comment SCANNED; EST Glomerular Filtration Rate 47 mL/min (>60); Est Glom Filt Rate - Afr Amer 57 mL/min (>60); Estimated Creatinine Clearance 48.63 ml/min; Glucose 120 mg/dL (74-106); Hypochromasia RARE; Potassium 3.2 mmol/L (3.5-5.1); Sodium Level 135 mmol/L (136-145)
[2022-11-16] MEDS: Budesonide Respules 0.5 MG/2 ML AMPUL.NEB. INHALATION ×2 (07:42→19:27)
[2022-11-16] MEDS: Ipratropium/Albuterol Sulfate 3 ML AMPUL.NEB INHALATION ×4 (07:42→19:26)
[2022-11-16] MEDS: Potassium Chloride Oral Tablet 20 MEQ 60 MEQ PO ×2 (09:37→17:22)
[2022-11-16] MEDS: Pantoprazole Sodium 20 MG Tablet PO (09:38)
[2022-11-16] MEDS: guaiFENesin 600 MG Tablet PO ×2 (09:38→20:49)
[2022-11-16] MEDS: Ferrous Sulfate 325 MG Tablet PO (09:39)
[2022-11-16] MEDS: dilTIAZem CD 120 MG Capsule PO ×2 (09:39→20:49)
[2022-11-16] MEDS: 0.9% Normal Saline (250mL Bag) 250 ML 15 ML IV (09:45)
--- NOTE | 2022-11-16 10:15 | NURSING ---
This RN conulted w/Dr. Ballard about daily potassium 20meq ordered and scheduled for 0800 and the potassium 60meq that was ordered x1 for this morning. Dr. Ballard wanted the Potassium 60meq given only.
--- NOTE | 2022-11-16 11:34 | PCM.PN.HOSP ---
Reason for Visit Reason for Visit: Shortness of breath Subjective Subjective Patient states he had some right leg pain that is a chronic thing for him on and off. Reports his breathing seems to be slowly be getting better. He appears like he is feeling better overall. Sputum cultures so far showing gram-negative ady but we are awaiting sensitivities and complete identification. Objective Data Objective Data Vital Signs: Vital Signs Temp Pulse Resp BP Pulse Ox O2 Del Method O2 Flow Rate 98.6 F 88 22 H 128/68 H 96 Trach Collar 7 11/16/22 02:45 11/16/22 03:53 11/16/22 03:53 11/16/22 02:45 11/16/22 02:45 11/16/22 02:46 11/16/22 09:13 FiO2 30 11/16/22 02:45 Oxygen Flow Rate (L/min) 7 Oxygen Delivery Method Trach Collar Weight: 117.9 kg Body Mass Index (BMI) 36.2 Intake & Output: Intake and Output for Last 24 Hours 11/14/22 11/15/22 11/16/22 23:59 23:59 23:59 Intake Total 2340 / 2440 1627.5 / 1627.5 60 / 60 Output Total 1750 / 2100 2700 / 2700 900 / 900 Balance 590 / 340 -1072.5 / -1072.5 -840 / -840 Lab / Micro Data 11/16/22 05:50 11/16/22 05:50 Labs: Laboratory Results - last 24 hr 11/15/22 11:46: POC Glucose 110 H 11/15/22 16:08: POC Glucose 98 11/15/22 21:32: POC Glucose 147 H 11/16/22 05:50: WBC 6.9, RBC 3.15 L, Hgb 8.4 L, Hct 27.5 L, MCV 87.3, MCH 26.7 L, MCHC 30.5 L, RDW Std Deviation 46.4 H, RDW Coeff of Alisson 14.4, Plt Count 317, MPV 9.6, Immature Gran % (Auto) 0.900, Neut % (Auto) 77.1 H, Lymph % (Auto) 7.7 L, [place] % (Auto) 13.9 H, Eos % (Auto) 0.1, Baso % (Auto) 0.3, Absolute Neuts (auto) 5.3, Absolute Lymphs (auto) 0.53 L, Nucleated RBC % 0, Differential Comment SCANNED, Hypochromasia RARE, Sodium 135 L, Potassium 3.2 L, Chloride 98, Carbon Dioxide 29.0, Anion Gap 8, BUN 30 H, Creatinine 1.57 H, Estim Creat Clear Calc 48.63, Est GFR (MDRD) Af Amer 57 L, Est GFR (MDRD) Non-Af 47 L, BUN/Creatinine Ratio 19.1, Glucose 120 H, Calcium 8.0 L 11/16/22 06:10: POC Glucose 125 H Micro: Microbiology 11/14/22 09:10 Sputum, Tracheal Aspirate Gram Stain - Final 11/14/22 09:10 Sputum, Tracheal Aspirate Respiratory Culture - Preliminary Gram negative ady Gram negative ady#2 11/14/22 02:44 Urine, Clean Catch Urine Culture - Final Gram negative ady 11/13/22 18:55 Blood Culture (Wb) - Venous Blood Culture - Preliminary Coag Negative Staph 11/14/22 09:10 Mucosa - Nasopharyngeal Respiratory Panel (PCR) - Final 11/14/22 09:10 Mucosa - Nose Coronavirus COVID-19 PCR - Final 11/13/22 02:44 Urine, Clean Catch Legionella Antigen - Final 11/13/22 02:44 Urine, Clean Catch Streptococcus pneumoniae Antigen (M - Final 11/13/22 19:00 Nasal Secretion SARS-CoV-2 & FLU Antigen (Rapid) - Final Physical Exam Const alert, oriented x3, no apparent distress and well nourished; Negative for average body habitus or healthy appearing Constitutional Narrative: Obese, upper middle-aged, white male sitting up in a chair at the bedside, watching TV, appears to be feeling pretty close back to his baseline, nontoxic HEENT head/scalp atraumatic and moist oral mucous membranes HEENT Narrative: Mallampati 3-4, no thrush Head and Scalp: normocephalic Resp normal respiratory effort, no retractions, no use of accessory muscles and No clear to auscultation bilaterally Resp Narrative: Still with scattered rhonchi, no other adventitious sounds noted at this time, still some yellowish appearing sputum coming from his tracheostomy site, rhonchi do seem somewhat improved with cough however patient would benefit from suctioning-he does this independently at home Auscultation: rhonchi; Negative for crackles or wheezes Cardio regular rate, regular rhythm, S1 normal heart sound, S2 normal heart sound, no murmurs, no rub and no gallops Cardio Narrative: Distant heart tones due to body habitus GI normal to inspection, nondistended, normoactive bowel sounds, soft to palpation and non-tender GI Narrative: Large protuberant abdomen Extremity Extremity Narrative: 1+ bilateral lower extremity pitting edema, hands and distal arms also appear to have some pitting that is trace, no cyanosis or clubbing Neuro oriented x3, moves all extremities and no focal motor deficits Neuro Narrative: Significant generalized weakness noted but no focal deficits Speech: speech normal Psych affect normal Psych Narrative: Pleasant, patient interacts normally, mood seems improved since he is feeling better Assessment & Plan Assessment/Plan (1) Acute hypokalemia: (2) HAP (hospital-acquired pneumonia): (3) Leukocytosis: (4) Thrombocytosis: PLAN: Plan Chronic hypoxic respiratory failure with acute hypoxia -Likely related to bacterial pneumonia -Rapid COVID and PCR both negative -Check respiratory viral panel -Legionella and strep pneumo are negative -1 of 2 blood cultures positive for coag negative staph which is contaminant -Urine culture remains pending -Sputum culture remains pending -MRSA PCR is negative so I think we can discontinue vancomycin at this time given we know his blood cultures are coag negative staph -Continue aggressive pulmonary toilet -Supplemental oxygen via trach mask as needed and wean as able -Continue meropenem but discontinue vancomycin Blood-tinged sputum -Suspect related to acute infection -Now resolved Hypokalemia -Improving and now only mild at 3.4 -We will give 40 mill equivalent p.o. potassium -Recheck in a.m. -Magnesium level was normal at 1.9 1 of 2 blood cultures positive for coag negative staph -Likely contaminant -Patient clinically improving -No further assessment required -We will discontinue vancomycin Recurrent left pleural effusion -Left effusion is stable compared to previous -Recommend continued outpatient follow-up -Patient has had previous Pleurx catheter and been evaluated by pulmonary medicine Thrombocytosis -Resolved -Likely related to acute infection on presentation Leukocytosis -Total white count has normalized and left shift is improving -Continue antibiotics with meropenem and discontinue vancomycin based on negative MRSA PCR and the fact the blood cultures are coag negative staph in 1 of 2 bottles CKD stage IIIa -Discontinue vancomycin -Avoid nephrotoxins as able -Renal function is currently at baseline -Baseline serum creatinine appears to run between 1.45 and 1.6 -Continue with 3 times daily diuretics today however with jump in serum creatinine may need to back off tomorrow and hold -Continue patient for up with Dr. Ballard after discharge Permanent atrial fibrillation -Continue home Cardizem -Continue home Eliquis Chronic diastolic heart failure -Maintain rate control with atrial fibrillation -Continue home metolazone Sunday -Continue Lasix 40 mg p.o. 3 times daily -Slight bump in renal function today -Will continue 3 times daily today but monitor renal function closely as patient is still markedly edematous -Home Aldactone is on hold Hyperlipidemia -Continue home atorvastatin Hypothyroidism -Continue home levothyroxine DM-2 -Fasting blood sugar well controlled at 132 this morning -Hold home Trulicity -Continue home insulin -SSI -Accu-Cheks as ordered -Cardiac/carb controlled diet -If need to start Decadron may need to adjust insulin requirements GERD -Continue home PPI Chronic anemia -Hemoglobin is relatively stable -Continue home iron supplementation -Monitor with CBC Obesity -BMI is 36.3 -Recommend weight loss -Complicates treatment, prognosis, outcomes DVT prophylaxis -Continue full anticoagulation with Eliquis CODE STATUS -Full code is verified on admission Charges/Coding Visit Charges Inpatient E&M: 50663 Subs Hosp L2
--- NOTE | 2022-11-16 12:56 | CASEMGMT ---
Addendum entered by Rajesh Massey 11/16/22 14:03: Pt provided w/list of SNF's prepared by ANUSHA Gutiérrez CM. Pt states his 1st choice is [facility]. He states he will look over the list to decide who his next 2 preferences are. AILYN Diaz, made aware. Original Note: ANUSHA EDGAR NOTE: Per Dr Ballard, pt may need HHC. ANUSHA EDGAR to room to discuss discharge planning and inquired if he is interested in HHC. Pt inquired about going somewhere short-term before returning home, stating he is concerned about going home d/t family members in the home have COVID and he also states he could use therapy to get stronger before returning home. He states again he feels he would benefit from going somewhere but states, I can't afford it. ANUSHA EDGAR explained the process of SNF referral and insurance prior-auth needed and he would be made aware of any financial responsibilities before going. He voices appreciation of the info and states would like to look over a list of SNF's. Aishwarya, maintenance planner, made aware. ANUSHA EDGAR reviewed therapy notes from yesterday. Pt ambulated 20 ft w/CGA and use of cane, gait somewhat unsteady, and additional therapy recommended. Per Karin w/OT today, pt CGA w/use of cane but only pivoted from to chair from bed and additional therapy recommended. Will notify SW of pt's interest in SNF. Lalit DURHAM RN, CM
[2022-11-16] MEDS: Insulin Lispro 100 UNIT/ML INSULN.PEN SC ×2 (13:07→20:58)
[2022-11-16] MEDS: Glucerna Shake 120 ML LIQUID PO ×3 (13:13→20:54)
--- NOTE | 2022-11-16 13:22 | CASEMGMT ---
Discharge Planning A list of SNF?providers including quality and resource use data and consistent with the patient's preferred geographic region, medical needs, and insurance network was created in [employer] [facility].? This list was provided to the RN CM. Marla DURHAM, RN, CM
[2022-11-16 15:07] LABS: Bedside Glucose 158 mg/dL (74-106)
[2022-11-16] MEDS: Atorvastatin Calcium 40 MG Tablet PO (17:23)
[2022-11-16 17:49] LABS: Bedside Glucose 136 mg/dL (74-106)
[2022-11-16] MEDS: Insulin Glargine-YFGN 100 UNIT/ML Pen 10 UNIT SC (20:58)
[2022-11-16 21:20] LABS: Bedside Glucose 208 mg/dL (74-106)
[2022-11-17] VITALS (8 sets, daily range): BP systolic 117–125; BP diastolic 70–77; PULSE 56–87; RESP 16–20; TEMP 36.9–37.3; O2SAT 91–100
[2022-11-17] MEDS: Meropenem 500 MG in 0.9% Normal Saline (50mL MB+) 50 ML 100 MG IV (06:00)
[2022-11-17] MEDS: Furosemide 40 MG Tablet PO ×2 (06:01→13:49)
[2022-11-17] MEDS: Levothyroxine 150 MCG Tablet PO (06:02)
[2022-11-17] MEDS: Acetaminophen 325 MG Tablet 650 MG PO (06:08)
[2022-11-17] MEDS: 0.9% Normal Saline (250mL Bag) 250 ML 15 ML IV (06:10)
[2022-11-17] MEDS: Budesonide Respules 0.5 MG/2 ML AMPUL.NEB. INHALATION (07:04)
[2022-11-17] MEDS: Ipratropium/Albuterol Sulfate 3 ML AMPUL.NEB INHALATION ×3 (07:04→14:53)
[2022-11-17 07:11] LABS: Bedside Glucose 148 mg/dL (74-106)
[2022-11-17 08:14] LABS: Anion Gap 10 (5-15); BUN 43 mg/dL (7-18); BUN/Creat Ratio 26.1 RATIO (10-20); Calcium,Total 7.4 mg/dL (8.5-10.1); Chloride 99 mmol/L (98-107); Creatinine, Serum 1.65 mg/dL (0.70-1.30); EST Glomerular Filtration Rate 44 mL/min (>60); Est Glom Filt Rate - Afr Amer 54 mL/min (>60); Estimated Creatinine Clearance 46.27 ml/min; Glucose 119 mg/dL (74-106); Potassium 3.5 mmol/L (3.5-5.1); Sodium Level 136 mmol/L (136-145)
[2022-11-17] MEDS: Potassium Chloride Oral Tablet 20 MEQ PO (08:56)
[2022-11-17] MEDS: guaiFENesin 600 MG Tablet PO (08:57)
[2022-11-17] MEDS: Ferrous Sulfate 325 MG Tablet PO (08:57)
[2022-11-17] MEDS: Pantoprazole Sodium 20 MG Tablet PO (08:57)
[2022-11-17] MEDS: Metolazone 2.5 MG Tablet PO (08:58)
[2022-11-17] MEDS: dilTIAZem CD 120 MG Capsule PO (08:58)
--- NOTE | 2022-11-17 09:33 | CASEMGMT ---
Discharge Planning Referral sent to [facility] via [facility]. Aishwarya Esparza, Discharge Planning Asst.
--- NOTE | 2022-11-17 10:21 | CASEMGMT ---
Social Work SW met with pt and updated that TCU is unable to accept. Pt states next preference is [facility]. Referral to be sent to [facility]. Plan: [facility], pending acceptance and [facility]
--- NOTE | 2022-11-17 10:34 | CASEMGMT ---
Discharge Planning Patient has been accepted by [facility]. Precert submitted. Aishwarya Esparza, Discharge Planning Asst.
--- NOTE | 2022-11-17 11:57 | PCM.TXEXTCAR ---
Diet Diet Order/Speech Therapy: 11/13/22 21:40 Diet: Consistent Carb - Calorie Controlled Food consistency:: Regular Liquid Consistency:: Regular/Thin Dietary Modifications:: Sodium Restricted How many daily calories?: 2000 calorie Routine Orders/Code Status Suppository Frequency: Daily PRN O2 Liters per Minute: Trach Mask 4 L at all times O2 Frequency: Continuous Keep PO Greater than or Equal to (%): 89 Routine Lab Work: CBC (5 days) and BMP (5 days) Code Status: Full Code Therapies Weight Bearing: Full weight bearing Physical Therapy: Eval and Treat Occupational Therapy: Eval and Treat Problem/Diagnosis (1) Acute hypokalemia: Status: Acute Code(s): E87.6 - Hypokalemia (2) HAP (hospital-acquired pneumonia): Status: Acute Code(s): J18.9 - Pneumonia, unspecified organism; Y95 - Nosocomial condition (3) Leukocytosis: Status: Acute Code(s): D72.829 - Elevated white blood cell count, unspecified (4) Thrombocytosis: Status: Acute Code(s): D75.839 - Thrombocytosis, unspecified Allergies/Procedures Done in Hospital Allergies acetaminophen [From Percocet] Adverse Reaction (Intermediate, Verified 11/13/22 18:39) headache Headache, dizziness, vomitting. oxycodone [From Percocet] Adverse Reaction (Intermediate, Verified 11/13/22 18:39) headache Headache, dizziness, vomitting. egg [eggs] Adverse Reaction (Verified 11/13/22 18:39) Vomiting Procedures: EKG and - (Chest x-ray) Type of Care/Length of Stay Estimated LOS: Convalescent Care Less Than 30 days Type of Care Needed: Skilled Rehab Potential: Good Prognosis: Good Additional Orders/Day of Discharge Day of Discharge: 11/17/22 Dietary and Speech Recommendations Dietitian Recommendations/Changes: will adjust diet to 2000 calorie controlled, sodium restricted and add 120mL glucerna 4x/day w/ medpass for additional nutrition if consumed; recommend [employer]OR consult if issues swallowing evident Discharge Plan Admission Admit Date/Time: 11/13/22 20:14 Attending Provider: Zo Ballard Primary Care Provider: Chinmay Sin Consulting Providers: Gabriel Novak Discharge Orders/Prescriptions Prescriptions: No Action ferrous sulfate [FeroSul] 325 mg (65 mg iron) tablet 325 mg PO DAILY Eliquis 5 mg tablet 5 mg PO BID Qty: 60 11RF spironolactone 25 mg tablet 25 mg PO Q12H Hold Instructions: MD Ordered furosemide 40 mg tablet 40 mg PO BID Qty: 60 12RF Hold Instructions: Hold for 1 week until kidney function, creatinine returns to baseline 1.70. metolazone 2.5 mg tablet 2.5 mg PO MOWEFR Qty: 30 6RF Hold Instructions: Hold for 1 week until kidney function, creatinine returns to baseline 1.70. levothyroxine 150 MCG tablet 150 mcg PO DAILY Patient Comments: thyroid atorvastatin 40 MG tablet 40 mg PO DAILY@1700 ipratropium-albuterol 3 ML solution for nebulization 3 ml inhalation Q4H Patient Comments: breathing acetaminophen 325 mg Tablet 650 mg PO DAILY PRN (Reason: Pain) omeprazole 20 mg capsule,delayed release(DR/EC) 20 mg PO DAILY Patient Comments: TAKE 1 CAPSULE BY MOUTH ONCE DAILY budesonide [Pulmicort] 0.5 mg/2 mL Suspension For Nebulization 0.5 mg INHALATION BID potassium chloride 10 mEq capsule, extended release 20 meq PO DAILY Patient Comments: TAKE 2 CAPSULES BY MOUTH ONCE DAILY Trulicity 4.5 mg/0.5 mL pen injector 4.5 mg subcut WE Levemir FlexPen 100 unit/mL (3 mL) insulin pen 25 unit subcut QHS (DME) FreeStyle Zayra 2 Sensor Kit See Rx Instructions .ROUTE .MEDSUPPLY Qty: 2 6RF Rx Instructions: As directed diltiazem HCl 120 mg capsule,extended release 24hr 120 mg PO BID Qty: 180 3RF Rx Instructions: Hold for heart less than 60 or systolic blood pressure less than 100 mmHg. Referrals / Follow Up: Chinmay Sin MD [Primary Care Provider] -
[2022-11-17] MEDS: Insulin Lispro 100 UNIT/ML INSULN.PEN SC (12:05)
[2022-11-17] MEDS: levoFLOXacin 750 MG Tablet PO (12:34)
--- NOTE | 2022-11-17 13:30 | CASEMGMT ---
Social Work SW met with pt to update on acceptance to [facility]. Pt states he is doing better and feels he can now return home. Pt denying need for SNF. RNCM updated and to follow up for dc planning home. MARCO Madrigal
--- NOTE | 2022-11-17 13:49 | CASEMGMT ---
RN CM in to room to asses pt. for D/C planning d/t pt. declining SNF. Therapy was in the room and states pt. just walked 40 feet with therapist as standby. Pt. states he feels strong and would like to go home. He denies need for skilled services upon discharge. Updated hospitalist.
[2022-11-17] MEDS: Glucerna Shake 120 ML LIQUID PO ×2 (13:51→16:55)
--- NOTE | 2022-11-17 14:33 | PCM.DC.SUM ---
Providers Date of Admission: 11/13/22 Date of Discharge: 11/17/22 Primary Care Physician: Dr. Chinmay Sin MD Reason For Visit: PNEUMONIA Diagnosis Discharge Diagnosis (1) Acute hypokalemia: Status: Acute Code(s): E87.6 - Hypokalemia (2) HAP (hospital-acquired pneumonia): Status: Acute Code(s): J18.9 - Pneumonia, unspecified organism; Y95 - Nosocomial condition (3) Leukocytosis: Status: Acute Code(s): D72.829 - Elevated white blood cell count, unspecified (4) Thrombocytosis: Status: Acute Code(s): D75.839 - Thrombocytosis, unspecified Medications at Discharge Home Medications levothyroxine 150 mcg tablet 150 mcg PO DAILY hypothyroidism 06/04/14 atorvastatin 40 mg tablet 40 mg PO DAILY@1700 cholesterol 04/12/17 ipratropium 0.5 mg-albuterol 3 mg (2.5 mg base)/3 mL nebulization soln 3 ml inhalation Q4H sob 04/12/17 flash glucose sensor (BookiooStyle Zayra 2 Sensor kit) #2 ea 05/17/21 acetaminophen 325 mg tablet 650 mg PO DAILY PRN Pain 12/06/21 budesonide 0.5 mg/2 mL suspension for nebulization (Pulmicort) 0.5 mg inhalation BID sob 12/06/21 omeprazole 20 mg capsule,delayed release 20 mg PO DAILY GERD 12/06/21 diltiazem HCl 120 mg capsule,extended release 24 hr 120 mg PO BID heart #180 caps 12/14/21 apixaban 5 mg tablet (Eliquis) 5 mg PO BID blood thinner #60 tabs 12/15/21 furosemide 40 mg tablet 40 mg PO BID EDEMA #60 tabs 02/21/22 metolazone 2.5 mg tablet 2.5 mg PO MOWEFR EDEMA #30 tabs 02/21/22 spironolactone 25 mg tablet 25 mg PO Q12H fluid 02/21/22 ferrous sulfate 325 mg (65 mg iron) tablet (FeroSul) 325 mg PO DAILY iron 08/29/22 insulin detemir U-100 100 unit/mL (3 mL) subcutaneous pen (Levemir FlexPen) 25 unit subcut QHS dm 09/12/22 dulaglutide 4.5 mg/0.5 mL subcutaneous pen injector (Trulicity) 4.5 mg subcut WE DIABETES 11/13/22 potassium chloride 10 mEq capsule,extended release 20 meq PO DAILY mineral 11/13/22 guaifenesin 600 mg tablet, extended release 12 hr (Mucinex) 600 mg PO BID #14 tabs 11/17/22 levofloxacin 750 mg tablet 750 mg PO Q48@0600 #4 tabs 11/17/22 Hospital Course Procedures EKG and - (Chest x-ray) Summary of Care Provided Minutes Spent on Discharge: 38 Hospital Course: Mr. Chow is a 67-year-old male who presented to the emergency department at [facility] on 11/13/2022 complaining of shortness of breath, cough, and blood-tinged sputum. The patient is on Eliquis at baseline for atrial fibrillation and has a tracheostomy due to history of laryngeal cancer. This was placed in 2006. Patient reported that his had COVID and that over the 5 days leading up to admission he had been feeling unwell however on the day of presentation he was more short of breath and spiked a fever. He denied any nausea or vomiting and reported he just has some blood-tinged sputum coming from his tracheostomy tube. He complained of some mild chest pain and had a temperature of 103. He typically wears trach collar at 4 L. On presentation he was not in any respiratory distress but had diminished breath sounds at the left base. He does have a chronic left-sided pleural effusion for which he follows as an outpatient. His CBC showed a leukocytosis with a left shift, chronic stable anemia, and mild thrombocytosis. Coags are elevated due to his Eliquis use at baseline. His chemistry panel showed mild hypokalemia with potassium of 3.0 stable CKD with a serum creatinine of 1.51 and a serum glucose of 149. His rapid COVID and COVID PCR were negative. Respiratory viral panel was negative. Blood, sputum, and urine cultures were obtained. He was admitted to the medical floor and placed on vancomycin and meropenem. While being on antibiotics his sputum cleared and the blood-tinged sputum from his tracheostomy site resolved. His hemoglobin was stable throughout his hospital course. He also reported some increased swelling so we did more aggressively diurese him during hospitalization and increased his Lasix from twice daily dosing to 3 times daily dosing. At discharge we resumed his home baseline twice daily dosing. His urine culture demonstrated a gram-negative ady however it was less than 1000 CFU's and he had no urinary symptoms, his blood cultures were negative. His sputum culture, however, showed to gram-negative organisms with Proteus and Morganella. Both organisms were fairly sensitive and had good sensitivity to quinolones. We were able to discharge him on Levaquin to complete 4 more days. We did renally dosed this every 48 hours with 750 mg and his antibiotic should be completed on 11/26/2022. His kidney function was at baseline at the time of discharge at 1.65. He had significant hypokalemia during his hospitalization for which we replaced his potassium aggressively and it had normalized by the time of discharge. He will continue his home potassium supplementation at discharge as well. I suspect his hypokalemia was likely related to decreased solute intake it admission as his appetite was poor and improved dramatically during his hospital stay and then the extra diuretics we utilize while he was hospitalized. At maximum he was on 10 L via trach mask and we were able to wean him back to his baseline oxygen by 11/16/2022 both with rest and exertion. He was evaluated by physical therapy and initially it was felt that he may need skilled facility at discharge however the patient dramatically improved and felt he was able to go home without any further therapy needed at discharge. We were able to discharge him home in stable condition on 11/17/2022. As noted he will be placed on Levaquin to complete her antibiotic course and a prescription for this as well as Mucinex was sent to the local pharmacy. I have asked him to follow-up with his primary care physician within the next 1 to 2 weeks and his aircraft time clerk as previously scheduled. Discharge diagnoses: Morganella and Proteus pneumonia Acute hypoxia Chronic hypoxic respiratory failure Blood-tinged sputum Hypokalemia-resolved Recurrent left pleural effusion-stable Thrombocytosis-resolved Leukocytosis-resolved CKD stage IIIa Permanent atrial fibrillation Chronic diastolic heart failure Hyperlipidemia Hypothyroidism DM-2 GERD Chronic anemia Obesity History of laryngeal cancer Physical Exam Const alert, oriented x3, no apparent distress and well nourished; Negative for average body habitus or healthy appearing Constitutional Narrative: Obese, upper middle-aged, white male sitting up in bed, watching TV, eating breakfast, appears to be feeling well, nontoxic General Appearance: cooperative, comfortable, well kempt and well developed Orientation / Consciousness: awake, oriented to person, oriented to place and oriented to time Exam Limitations: no limitations Nutritional Appearance: obese HEENT normocephalic, head/scalp atraumatic and moist oral mucous membranes HEENT Narrative: Mallampati 3-4, no thrush, mild hearing loss Eyes PERRL, EOMs intact bilaterally and conjunctivae normal Eyes Narrative: No scleral icterus Neck no lymphadenopathy and supple Neck Narrative: Stoma located in central neck, trachea midline, no thyroid enlargement noted Resp normal respiratory effort, no retractions, no use of accessory muscles and No clear to auscultation bilaterally Resp Narrative: Still some few scattered rhonchi however this does improve with suction and may be chronic for him given his chronic trach Auscultation: rhonchi; Negative for crackles or wheezes Cardio regular rate, S1 normal heart sound, S2 normal heart sound, no murmurs, no rub and no gallops Cardio Narrative: Distant heart tones due to body habitus, rhythm is irregularly irregular GI normal to inspection, nondistended, normoactive bowel sounds, soft to palpation and non-tender GI Narrative: Large protuberant abdomen Extremity Extremity Narrative: 1+ bilateral lower extremity pitting edema, hands and distal arms also appear to have some pitting that is trace, no cyanosis or clubbing Skin no rashes or lesions noted, no wounds, skin turgor normal and no jaundice Neuro oriented x3, CN's II-XII intact bilaterally, moves all extremities and no focal motor deficits Neuro Narrative: Mild generalized weakness with proximal musculature being weaker than distal Speech: speech normal Psych affect normal Psych Narrative: Pleasant, patient interacts normally, mood seems good Weight / BMI Weight Weight: 117.9 kg Body Mass Index (BMI) 36.2 ABG / Lab / Microbiology Data 11/16/22 05:50 11/17/22 06:25 Laboratory: Laboratory Results - last 24 hr 11/16/22 13:05: POC Glucose 158 H 11/16/22 17:17: POC Glucose 136 H 11/16/22 20:57: POC Glucose 208 H 11/17/22 05:59: POC Glucose 148 H 11/17/22 06:25: Sodium 136, Potassium 3.5, Chloride 99, Carbon Dioxide 27.0, Anion Gap 10, BUN 43 H, Creatinine 1.65 H, Estim Creat Clear Calc 46.27, Est GFR (MDRD) Af Amer 54 L, Est GFR (MDRD) Non-Af 44 L, BUN/Creatinine Ratio 26.1 H, Glucose 119 H, Calcium 7.4 L Microbiology: Microbiology 11/13/22 18:55 Blood Culture (Wb) - Venous Blood Culture - Final Coag Negative Staph 11/14/22 09:10 Sputum, Tracheal Aspirate Gram Stain - Final 11/14/22 09:10 Sputum, Tracheal Aspirate Respiratory Culture - Final Proteus mirabilis Morganella morganii sp morgani 11/13/22 19:15 Blood Culture (Wb) - Anticubital Left Blood Culture - Preliminary No growth in 48 hours. 11/14/22 02:44 Urine, Clean Catch Urine Culture - Final Gram negative ady 11/14/22 09:10 Mucosa - Nasopharyngeal Respiratory Panel (PCR) - Final 11/14/22 09:10 Mucosa - Nose Coronavirus COVID-19 PCR - Final 11/13/22 02:44 Urine, Clean Catch Legionella Antigen - Final 11/13/22 02:44 Urine, Clean Catch Streptococcus pneumoniae Antigen (M - Final 11/13/22 19:00 Nasal Secretion SARS-CoV-2 & FLU Antigen (Rapid) - Final D/C Instructions Discharge Diet: Low fat / Low cholesterol, 8 Cup Fluid Restriction and 2000 mg Sodium Diet Discharge Activity: Return to Normal Activity Meaningful Use Info Meaningful Use Diagnoses (Choose all that apply): None applicable Discharge Plan Admission Admit Date/Time: 11/13/22 20:14 Primary Reason for Your Visit: Shortness of Breath/cough/Blood-tinged sputum Attending Provider: Zo Ballard Primary Care Provider: Chinmay Sin Consulting Providers: Gabriel Novak Discharge Orders/Prescriptions Prescriptions: New guaifenesin [Mucinex] 600 mg Tablet Extended Release 12hr 600 mg PO BID Qty: 14 0RF levofloxacin 750 mg Tablet 750 mg PO Q48@0600 Qty: 4 0RF Rx Instructions: Next dose due on 11/19/2022 Continued ferrous sulfate [FeroSul] 325 mg (65 mg iron) tablet 325 mg PO DAILY Eliquis 5 mg tablet 5 mg PO BID Qty: 60 11RF furosemide 40 mg tablet 40 mg PO BID Qty: 60 12RF Hold Instructions: Hold for 1 week until kidney function, creatinine returns to baseline 1.70. metolazone 2.5 mg tablet 2.5 mg PO MOWEFR Qty: 30 6RF Hold Instructions: Hold for 1 week until kidney function, creatinine returns to baseline 1.70. levothyroxine 150 MCG tablet 150 mcg PO DAILY Patient Comments: thyroid atorvastatin 40 MG tablet 40 mg PO DAILY@1700 ipratropium-albuterol 3 ML solution for nebulization 3 ml inhalation Q4H Patient Comments: breathing acetaminophen 325 mg Tablet 650 mg PO DAILY PRN (Reason: Pain) omeprazole 20 mg capsule,delayed release(DR/EC) 20 mg PO DAILY Patient Comments: TAKE 1 CAPSULE BY MOUTH ONCE DAILY budesonide [Pulmicort] 0.5 mg/2 mL Suspension For Nebulization 0.5 mg INHALATION BID potassium chloride 10 mEq capsule, extended release 20 meq PO DAILY Patient Comments: TAKE 2 CAPSULES BY MOUTH ONCE DAILY Trulicity 4.5 mg/0.5 mL pen injector 4.5 mg subcut WE Levemir FlexPen 100 unit/mL (3 mL) insulin pen 25 unit subcut QHS (DME) FreeStyle Zayra 2 Sensor Kit See Rx Instructions .ROUTE .MEDSUPPLY Qty: 2 6RF Rx Instructions: As directed diltiazem HCl 120 mg capsule,extended release 24hr 120 mg PO BID Qty: 180 3RF Rx Instructions: Hold for heart less than 60 or systolic blood pressure less than 100 mmHg. Held spironolactone 25 mg tablet 25 mg PO Q12H Hold Instructions: hold as you were prior to admission until advised otherwise Referrals / Follow Up: Gabrielle Ballard DO [Med Staff - Consulting] - See Referral Note (as previously scheduled) Chinmay Sin MD [Primary Care Provider] - Within 1 Week Disposition Disposition (needs filled in before D/C Order can be placed): Home, Self Care Charges/Coding Visit Charges Inpatient E&M: 98942 Disch Hosp >30min
--- NOTE | 2022-11-17 14:59 | CASEMGMT ---
ANUSHA EDGAR called [facility] and verified that patient's oxygen concentrator only goes to 5 L.
--- NOTE | 2022-11-17 15:22 | PHA.DC.MC.R ---
Pharmacy [facility] has performed discharge medication reconciliation and counseling for this patient. The patient's discharge medication list was reviewed for discrepancies and discrepancies were resolved. The patient was counseled on the following discharge medications and changes in medications for homegoing were reviewed. The Reason for Use, instructions for use, and potential side effects were reviewed for all new medications. The patient's questions regarding all of their medications were answered. 1. Levofloxacin 750 mg PO Q48H x 4 doses 2. Mucinex 600 mg PO BID x 7 days The patient was able to verbally demonstrate an understanding of their discharge medications. Medications at Discharge Home Medications levothyroxine 150 mcg tablet 150 mcg PO DAILY hypothyroidism 06/04/14 atorvastatin 40 mg tablet 40 mg PO DAILY@1700 cholesterol 04/12/17 ipratropium 0.5 mg-albuterol 3 mg (2.5 mg base)/3 mL nebulization soln 3 ml inhalation Q4H sob 04/12/17 flash glucose sensor (FreeStyle Zayra 2 Sensor kit) #2 ea 05/17/21 acetaminophen 325 mg tablet 650 mg PO DAILY PRN Pain 12/06/21 budesonide 0.5 mg/2 mL suspension for nebulization (Pulmicort) 0.5 mg inhalation BID sob 12/06/21 omeprazole 20 mg capsule,delayed release 20 mg PO DAILY GERD 12/06/21 diltiazem HCl 120 mg capsule,extended release 24 hr 120 mg PO BID heart #180 caps 12/14/21 apixaban 5 mg tablet (Eliquis) 5 mg PO BID blood thinner #60 tabs 12/15/21 furosemide 40 mg tablet 40 mg PO BID EDEMA #60 tabs 02/21/22 metolazone 2.5 mg tablet 2.5 mg PO MOWEFR EDEMA #30 tabs 02/21/22 spironolactone 25 mg tablet 25 mg PO Q12H fluid 02/21/22 ferrous sulfate 325 mg (65 mg iron) tablet (FeroSul) 325 mg PO DAILY iron 08/29/22 insulin detemir U-100 100 unit/mL (3 mL) subcutaneous pen (Levemir FlexPen) 25 unit subcut QHS dm 09/12/22 dulaglutide 4.5 mg/0.5 mL subcutaneous pen injector (Trulicity) 4.5 mg subcut WE DIABETES 11/13/22 potassium chloride 10 mEq capsule,extended release 20 meq PO DAILY mineral 11/13/22 guaifenesin 600 mg tablet, extended release 12 hr (Mucinex) 600 mg PO BID #14 tabs 11/17/22 levofloxacin 750 mg tablet 750 mg PO Q48@0600 #4 tabs 11/17/22
--- NOTE | 2022-11-17 15:59 | CASEMGMT ---
Discharge Planning Updated [facility] via [facility] that patient has decided to return home upon discharge. Aishwarya Esparza, Discharge Planning Asst.
--- NOTE | 2022-11-17 16:45 | CASEMGMT ---
ANUSHA CM NOTE: Per nurseSusan, pt was sitting in chair on RA and pulse ox maintaining @ 95% and he did not want the oxygen applied w/ambulation, although he wears O2 @ 2 l/m continuously @ home. Pulse ox 91 % on RA w/ambulation. Pt states his family is on the way in to take him home and states they will have his portable O2 tank with them. He voices no other discharge needs or concerns. Lalit DURHAM RN CM
[2022-11-17] MEDS: Atorvastatin Calcium 40 MG Tablet PO (16:55)
[2022-11-17 17:10] LABS: Bedside Glucose 135 mg/dL (74-106)
[2022-11-18 00:36] LABS: Bedside Glucose 164 mg/dL (74-106)
== END 2022-11-17 18:05 | disposition home or self-care (01) | DRG 178 ==
LOC: ED 20:30 → MS3 20:41
PROVIDERS: Nurse Practitioner; Admitting Provider Hospitalist; Emergency Provider Emergency Medicine; PCP Family Medicine; Visit Provider Internal Medicine
DX: J15.69 Pneumonia due to other Gram-negative bacteria (principal); I13.0 Hypertensive heart and chronic kidney disease with heart failure and stage 1 through stage 4 chronic kidney disease, or unspecified chronic kidney disease; I48.20 Chronic atrial fibrillation, unspecified; J96.11 Chronic respiratory failure with hypoxia; I50.32 Chronic diastolic (congestive) heart failure; I48.21 Permanent atrial fibrillation; J90 Pleural effusion, not elsewhere classified; R04.2 Hemoptysis; E83.51 Hypocalcemia; E11.21 Type 2 diabetes mellitus with diabetic nephropathy; D64.9 Anemia, unspecified; N18.31 Chronic kidney disease, stage 3a; J43.9 Emphysema, unspecified; E11.22 Type 2 diabetes mellitus with diabetic chronic kidney disease; Z79.4 Long term (current) use of insulin; E03.9 Hypothyroidism, unspecified; E78.5 Hyperlipidemia, unspecified; E87.6 Hypokalemia; I25.10 Atherosclerotic heart disease of native coronary artery without angina pectoris; K21.9 Gastro-esophageal reflux disease without esophagitis; E66.9 Obesity, unspecified; Z79.01 Long term (current) use of anticoagulants; Z82.3 Family history of stroke; Y95 Nosocomial condition; Z87.891 Personal history of nicotine dependence; G89.29 Other chronic pain; Z68.36 Body mass index [BMI] 36.0-36.9, adult; Z85.21 Personal history of malignant neoplasm of larynx
CPT/HCPCS: 31720; 36415; 71045; 80048; 80053; 80202; 82962; 83605; 83735; 84100; 85025; 85610; 85730; 87040; 87070; 87077; 87086; 87088; 87186; 87205; 87428; 87449; 87633; 87635; 87641; 93005; 94640; 94762; 97110; 97162; 97166; 97530; 97535; 99285; J2185; J7040; J7050; 90662; A4216; J2405

== ENCOUNTER 2023-06-19 14:14 | Inpatient (IN) | payer MEDICARE, SELFPAY ==
[2023-06-19] VITALS (14 sets, daily range): BP systolic 162–199; BP diastolic 71–102; PULSE 48–55; RESP 16–24; TEMP 36.4–36.8; O2SAT 92–99; BMI 37.9; BMI 37.3
--- NOTE | 2023-06-19 15:05 | RAD_ITS ---
STUDY: X-RAY CHEST REASON FOR EXAM: Male, 68 years old. Dyspnea, bilateral rales, edema . TECHNIQUE: PA and lateral views of the chest. COMPARISON: Comparison is made with prior study November 13, 2022. FINDINGS: EKG electrodes are seen. A tracheostomy is in situ. The tip is at 5 cm proximal to ingris. Hyperinflation. Small left pleural effusion with left basilar infiltration and/or atelectasis. Mild degree of vascular congestion. There is mild cardiac enlargement. Normal mediastinum and laura. Normal visualized pulmonary arteries. There is atherosclerotic calcification of the aortic arch with tortuosity. There are diffuse degenerative changes of the visualized thoracic spine. There is degenerative osteoarthritis of the bilateral shoulders. There is no demonstrated abnormality of the visualized soft tissue structures of the upper abdomen. RAD/Chest PA and Lateral IMPRESSION: Small left pleural effusion with bibasilar atelectasis more prominent on the left side with mild degree of superimposed vascular congestion and CHF. A tracheostomy tube is seen with the tip at 5 cm proximal to the ingris. Electronically Signed: Tashi Lipscomb MD at 15:27 EDT ,
[2023-06-19 15:16] LABS: Absolute Lymphocyte Count 0.49 X10^3/uL (0.83-4.51); Absolute Neutrophil Count 8.6 X10^3/uL (2.0-7.7); Basophil# 0.04 X10^3/uL; Basophil% 0.4 % (0-1); Eosinophil# 0.13 X10^3/uL; Eosinophils% 1.3 % (0-5); Hemoglobin 10.8 g/dL (13.0-16.5); Lymphocyte # 0.49 X10^3/ul (0.83-4.51); Mean Corp Hgb Conc 31.8 g/dL (32-36); Mean Corpuscular Hgb 28.1 pg (27.0-32.0); Mean Corpuscular Volume 88.3 fL (80-94); Mean Platelet Vol. 10.9 fl (6.2-12.0); Monocyte# 0.53 X10^3/uL; Monocyte% 5.4 % (0-10); NRBC Flagged by Analyzer 0 % (0-5); Neutrophil # 8.57 X10^3/uL (2.7-7.7); Neutrophil % 87.3 % (47-70); POSITIVE DIFFERENTIAL YES; Platelet Count 296 K/mm3 (150-450); RBC Distribution Width CV 13.4 % (11.6-14.6); RBC Distribution Width SD 43.5 fl (35.1-43.9); Red Blood Count 3.85 M/mm3 (4.6-6.2); White Blood Count 9.8 K/mm3 (4.4-11.0)
--- NOTE | 2023-06-19 15:16 | ED.VIS.DYS ---
HPI History of Present Illness Chief Complaint: Shortness of Breath Detail of Chief Complaint: Increasing dyspnea from baseline Informant: patient and spouse/S.O. Onset/Context/Timing Onset: Yesterday Context: sudden Timing: Continuous Quality: Positive for Dyspnea on exertion and Orthopnea (Stable 3 pillow); Negative for PND or Wheezing Current Severity: Mild Maximum Severity: Severe Worsened by: Exertion and Lying flat Relieved by: Nothing Associated Symptoms cough and white sputum; Negative for rhinorrhea, post nasal drip, ear pain, fever, sore throat, chills or sweats Chest Pain: Positive for None Narrative Narrative: Patient is a 68-year-old male. He has a history of chronic respiratory failure status post tracheostomy for laryngeal carcinoma, congestive heart failure with preserved ejection fraction, type 2 diabetes with polyneuropathy, atherosclerotic coronary disease, hyperlipidemia, hypothyroidism, kidney disease and atherosclerotic heart disease. He presents with increased shortness of breath since yesterday. Has had no increase in his cough or sputum production. He wears 4 L of oxygen at night and oxygen as needed during the day. He quit smoking 8 years ago when he was diagnosed with laryngeal cancer. He denies fever, chills night sweats. Denies rhinorrhea, congestion postnasal drainage. He denies sore throat. He denies chest discomfort. He denies abdominal pain, nausea, vomit diarrhea. He denies black or maroon-colored stool. He denies urologic symptoms. PE Risk Factors: Positive for Cancer (Remote); Negative for OCP + Smoking + > 35, Prior DVT or PE, Recent immobilization, Recent surgery or Recent travel Prior similar symptoms: Yes (Congestive heart failure) Recent Illness/Hospitalization: No PFSH PFS Medical History BPH (benign prostatic hyperplasia) Anxiety and depression Stage 3a chronic kidney disease (CKD) Atrial fibrillation Obesity Tracheostomy in place Anticoagulant long-term use Chronic a-fib Recurrent left pleural effusion Chronic pain (HFpEF) heart failure with preserved ejection fraction Wears glasses Walker as ambulation aid Ambulates with cane Injury of back Migraine headache Gastric reflux Former smoker On home oxygen therapy Emphysema, unspecified Obesity Chronic renal failure, stage 3 (moderate) Laryngeal cancer Gastroenteritis Diabetes mellitus, type II Malignant neoplasm of head, neck and face History of colon polyps Gout Hyperlipidemia Hiatal hernia Esophageal dysmotility Diverticulosis of colon (without mention of hemorrhage) Benign neoplasm of colon Atherosclerosis of coronary artery of [place] heart without angina pectoris Essential hypertension Hypothyroidism COPD (chronic obstructive pulmonary disease) Home Medications ?Medication ?Instructions ?Recorded ?Last Taken ?Type levothyroxine 150 mcg tablet 150 mcg PO DAILY hypothyroidism 06/04/14 11/13/22 History atorvastatin 40 mg tablet 40 mg PO DAILY@1700 cholesterol 04/12/17 11/12/22 History ipratropium 0.5 mg-albuterol 3 mg 3 ml inhalation Q4H sob 04/12/17 11/13/22 History (2.5 mg base)/3 mL nebulization soln flash glucose sensor (FreeStyle #2 ea 05/17/21 Unknown Rx Zayra 2 Sensor kit) acetaminophen 325 mg tablet 650 mg PO DAILY PRN Pain 12/06/21 11/13/22 History budesonide 0.5 mg/2 mL suspension 0.5 mg inhalation BID sob 12/06/21 11/10/22 History for nebulization (Pulmicort) omeprazole 20 mg capsule,delayed 20 mg PO DAILY GERD 12/06/21 11/12/22 History release furosemide 40 mg tablet 40 mg PO BID EDEMA #60 tabs 02/21/22 11/13/22 Rx ferrous sulfate 325 mg (65 mg 325 mg PO DAILY iron 08/29/22 11/13/22 History iron) tablet (FeroSul) dulaglutide 4.5 mg/0.5 mL 4.5 mg subcut WE DIABETES 11/13/22 11/08/22 History subcutaneous pen injector (Trulicity) potassium chloride 10 mEq 20 meq PO DAILY mineral 11/13/22 11/13/22 History capsule,extended release guaifenesin 600 mg tablet, 600 mg PO BID #14 tabs 11/17/22 Unknown Rx extended release 12 hr (Mucinex) diltiazem HCl 120 mg 120 mg PO BID heart #180 caps 03/01/23 Unknown Rx capsule,extended release 24 hr apixaban 5 mg tablet (Eliquis) 5 mg PO BID blood thinner #180 tabs 03/02/23 Unknown Rx Allergy/AdvReac Type Severity Reaction Status Date / Time acetaminophen (From Percocet) AdvReac Intermediate headache Verified 06/19/23 14:17 oxycodone (From Percocet) AdvReac Intermediate headache Verified 06/19/23 14:17 egg (eggs) AdvReac Vomiting Verified 06/19/23 14:17 Family History Mother Diabetes Hypertension Kidney disease Heart failure Father CVA (cerebral vascular accident) Hypertension Heart disease ischemic Brother Diabetes Surgical History History of cardiac catheterization Hx of colonoscopy History of thyroidectomy History of exploratory laparotomy Presence of tracheostomy History of laryngectomy (2007) Social History household members: spouse housing: house Smoking Status: Former smoker Smokeless tobacco user: snuff how long ago did patient quit smokin years ago alcohol intake: never substance use type: does not use caffeine: Yes what type of physical activity do you participate in: none frequency: does not exercise ROS ROS ED Constitutional Constitutional ED: Denies chills, fever(s), sweats or weight loss Eyes Eyes: Denies blurry vision, change in vision or diplopia ENT ENT ED: Denies ear pain, rhinorrhea or sore throat Cardiovascular Cardiovascular: Reports orthopnea; Denies chest pain, palpitations, paroxysmal nocturnal dyspnea or racing heartbeat Respiratory/Chest Respiratory/Chest: Reports cough, dyspnea, dyspnea on exertion, orthopnea and sputum; Denies paroxysmal nocturnal dyspnea Gastrointestinal Gastrointestinal: Denies abdominal pain, nausea or vomiting Genitourinary Genitourinary ED: Denies dysuria, hematuria or urinary frequency Musculoskeletal Musculoskeletal: Denies back pain or neck pain Integumentary Denies rash Neurologic Neurologic: Reports weakness; Denies headache(s) or paresthesias Endocrine Endocrinology: Denies cold intolerance or heat intolerance Hematologic/Lymphatic Hematologic/Lymphatic: Denies easy bleeding or easy bruising Allergic/Immunologic Allergic/Immunologic ED: Denies mouth swelling or tongue swelling EXAM Physical Exam Const Vital Signs: 06/19/23 14:15 06/19/23 14:17 06/19/23 14:50 Temperature 97.6 F L 97.6 F L Temperature Source Temporal Temporal Pulse Rate 50 L 50 L Respiratory Rate 18 18 Respiratory Effort Respiratory Pattern Blood Pressure 193/80 H 193/80 H Blood Pressure Mean 117 117 Pulse Ox 96 96 Oxygen Delivery Method Room Air Room Air Trach Collar Oxygen Flow Rate (L/min) 06/19/23 14:50 06/19/23 14:56 06/19/23 15:17 Temperature 97.5 F L Temperature Source Temporal Pulse Rate 50 L Respiratory Rate 18 Respiratory Effort Short of Breath Respiratory Pattern Normal Blood Pressure 190/75 H Blood Pressure Mean 113 Pulse Ox 92 99 Oxygen Delivery Method Trach Collar Trach Collar Oxygen Flow Rate (L/min) 2 06/19/23 16:00 06/19/23 16:07 Temperature 98 F Temperature Source Temporal Pulse Rate 49 L 48 L Respiratory Rate 18 Respiratory Effort Respiratory Pattern Blood Pressure 184/71 H 184/71 H Blood Pressure Mean 108 Pulse Ox 97 Oxygen Delivery Method Trach Collar Oxygen Flow Rate (L/min) 2 Positive well nourished and well developed Constitutional Narrative: BMI is 37.9. General Appearance ED: well developed and NAD; Negative for pallor HEENT Reports moist mucous membranes HEENT Narrative: Nose patent. Mucosa moist. atraumatic; Negative for tenderness Eyes PERRL and EOMs intact bilaterally General Eye ED: Negative for pale conjunctiva or scleral icterus Neck no lymphadenopathy, supple and no meningeal signs Neck Narrative: Unable to assess for JVD because of linda and body habitus. Patient tracheostomy is in place. Resp normal respiratory effort and No clear to auscultation bilaterally Auscultation: rales bilateral lower Cardio regular rhythm, S1 normal heart sound, S2 normal heart sound and no murmurs Rate: bradycardia GI non-tender, non-distended and no masses Auscultation: normoactive bowel sounds Palpation: soft Back/Spine no CVA tenderness and normal to inspection Extremity Negative for normal to inspection General Extremety ED: Yes edema; Negative for tenderness General Extremity: edema Neuro oriented x3 and CN's II-XII intact bilaterally Sensorium / Orientation: alert Psych mental status grossly normal Skin no wounds and skin turgor normal General Skin Exam: Negative for jaundice or pallor MDM MDM MDM Narrative Medical decision making narrative: Differential diagnosis would include chronic bronchitis, CHF, pneumonia, history is not consistent with PE. Need to rule out cardiac ischemia with heart failure as well. Will obtain EKG, chest x-ray appropriate blood work including troponin. History & Record Review Additional record(s) reviewed:: Prior inpatient record (Last hospitalization was November 2022 for pneumonia. Also had hypokalemia and thrombocytosis. Was admitted October 04, 2022 for heart failure. Nephrology was consulted. Infectious disease was also consulted.), Prior outpatient record and Prior labs Lab Data Attestation: I reviewed the patient's lab results. Lab results narrative: CBC reveals chronic anemia and stable with H&H of 10.8 and 34.0. Electrolyte panel is remarked for BUN/creatinine of 21 and 1.24 with an estimated GFR 62. Glucose is 336 with normal CO2 anion gap. Troponin is normal at 27. BNP is elevated at 968. Labs: Laboratory Results - last 24 hr 06/19/23 14:50 WBC 9.8 RBC 3.85 L Hgb 10.8 L Hct 34.0 L MCV 88.3 MCH 28.1 MCHC 31.8 L RDW Std Deviation 43.5 RDW Coeff of Alisson 13.4 Plt Count 296 MPV 10.9 Immature Gran % (Auto) 0.600 Neut % (Auto) 87.3 H Lymph % (Auto) 5.0 L [place] % (Auto) 5.4 Eos % (Auto) 1.3 Baso % (Auto) 0.4 Absolute Neuts (auto) 8.6 H Absolute Lymphs (auto) 0.49 L Nucleated RBC % 0 Sodium 136 Potassium 4.4 Chloride 102 Carbon Dioxide 31.0 Anion Gap 3 L BUN 21 H Creatinine 1.24 Estim Creat Clear Calc 76.21 Est GFR (MDRD) Af Amer 75 Est GFR (MDRD) Non-Af 62 BUN/Creatinine Ratio 16.9 Glucose 336 H Calcium 8.6 Troponin I High Sens 27 B-Natriuretic Peptide 968.2 H Creatinine is improved from prior dated November 17, 2022. Creatinine at that time was 1.65 with a BUN of 43. Radiography Chest X-Ray - ED: 2 View and Read by ED Physician (Independent reviewed interpreted by me. There is an effusion on the left. There is also atelectasis bilaterally. There is evidence of congestive heart failure. Patient is noted to have a tracheostomy tube. Cardiac size is prominent. Left cardiac border is slightly obscured due to the effusion.) Diagnostic Testing: Clinical Impression(s) from Imaging Studies Chest X-Ray 06/19/23 15:05 IMPRESSION: Small left pleural effusion with bibasilar atelectasis more prominent on the left side with mild degree of superimposed vascular congestion and CHF. A tracheostomy tube is seen with the tip at 5 cm proximal to the ingris. Electronically Signed: Tashi Lipscomb MD at 15:27 EDT , EKG Initial EKG: Attestation: I personally reviewed and interpreted this EKG as follows: Interpretation: Sinus Bradycardia (Rate is 48. There is a first-degree AV block. NE interval is 218 ms per cures duration 92 ms. QT duration 508 ms with a QTc of 453 ms. Gazelle is normal. There is no ischemic changes noted.) Management Discussion w/another healthcare provider: Hospitalist (Hospitalist was paged at [phone] for admission for CHF exacerbation with pleural effusion.) Treatment and Re-Evaluation :: Since patient has an effusion with evidence of congestive heart failure on chest x-ray with pedal edema and 3 pillow orthopnea 20 mg of Lasix IV push was ordered and 1 inch of Nitropaste for preload reduction. This will also help is elevated blood pressure Discharge Plan Dx/Rx/DC Orders Clinical Impression: Acute exacerbation of CHF (congestive heart failure), Pleural effusion on left, Sinus bradycardia seen on registered nurse cardiac, Hypertension, Anticoagulant long-term use Disposition Disposition: Acute Care Hospital [facility]
[2023-06-19 15:45] LABS: Anion Gap 3 (5-15); BNP,B-Type NATRIURETIC PEPTIDE 968.2 pg/mL (0-100); BUN 21 mg/dL (7-18); BUN/Creat Ratio 16.9 RATIO (10-20); Calcium,Total 8.6 mg/dL (8.5-10.1); Chloride 102 mmol/L (98-107); Creatinine, Serum 1.24 mg/dL (0.70-1.30); EST Glomerular Filtration Rate 62 mL/min (>60); Est Glom Filt Rate - Afr Amer 75 mL/min (>60); Estimated Creatinine Clearance 76.21 ml/min; Glucose 336 mg/dL (74-106); Potassium 4.4 mmol/L (3.5-5.1); Sodium Level 136 mmol/L (136-145); Troponin-I HS 27 pg/mL (3.0-78.0)
[2023-06-19] MEDS: Nitroglycerin Oint 1 INCH PACKET TD (16:07)
[2023-06-19] MEDS: Furosemide 40 MG/4 ML Vial IV ×2 (16:08→19:35)
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
[2023-06-19 16:49] LABS: Magnesium 2.1 mg/dL (1.6-2.6)
--- NOTE | 2023-06-19 18:27 | ECHOCS_ITS ---
Reason For Study: CHF Procedure This was a 2D Doppler, Color Flow transthoracic echocardiogram. The study was technically difficult. Due to body habitus. Contrast injection was performed. Exam performed portable in patient room. Left Ventricle Mildly dilated left ventricle. Moderate concentric left ventricular hypertrophy. Left ventricular systolic function is normal. The estimated ejection fraction is 60 %. Diastolic function is indeterminate. Right Ventricle Normal RV size. Normal systolic function. Atria The left atrium is severely enlarged. The right atrium is moderately enlarged. Mitral Valve Mild mitral annular calcification. There is no mitral valve stenosis. Tricuspid Valve Normal tricuspid valve. Trivial tricuspid valve insufficiency. Aortic Valve Trisinus/trileaflet aortic valve. Mild diffuse aortic valve calcification. Aortic sclerosis, no stenosis. Pulmonic Valve The pulmonic valve is not well visualized. Great Vessels Normal aortic root. Pericardium/Pleural No pericardial effusion. Epicardial fat. Medication Diluted definity 3.0ml given slow IV push to enhance endocardial definition. Performed a rapid injection of agitated mix of 9 cc saline and 1cc air to assess for atrial septal defect. MMode/2D Measurements & Calculations LVIDd: 5.8 cm IVSd: 1.6 cm Ao root diam: 3.6 cm LVIDs: 4.0 cm LVPWd: 1.4 cm FS: 31.3 % LAV(MOD-sp2): 68.3 ml LVAd ap4: 35.4 cm2 LVAd ap2: 29.0 cm2 LVLd ap4: 7.9 cm LVLd ap2: 7.5 cm EDV(MOD-sp4): 131.7 ml EDV(MOD-sp2): 97.6 ml EDV(sp4-el): 134.1 ml EDV(sp2-el): 95.5 ml LVAs ap4: 20.6 cm2 LVAs ap2: 17.3 cm2 LVLs ap4: 7.1 cm LVLs ap2: 6.4 cm ESV(MOD-sp4): 50.3 ml ESV(MOD-sp2): 39.8 ml ESV(sp4-el): 50.8 ml ESV(sp2-el): 39.6 ml EF(MOD-sp4): 61.8 % EF(MOD-sp2): 59.2 % EF(sp4-el): 62.1 % SV(MOD-sp4): 81.4 ml SV(MOD-sp2): 57.8 ml SV(sp4-el): 83.2 ml LA dimension(2D): 5.4 cm TAPSE: 2.2 cm Time Measurements MV dec time: 0.28 sec Doppler Measurements & Calculations MV E max eric: 53.6 cm/sec Lat Peak E' Eric: 5.4 cm/sec Med Peak E' Eric: 5.0 cm/sec MV A max eric: 61.9 cm/sec E/E' lat: 9.9 E/E' med: 10.8 MV E/A: 0.87 MV V2 max: 84.7 cm/sec MV dec slope: 197.0 cm/sec2 Ao V2 max: 183.5 cm/sec MV max P.9 mmHg Ao max P.5 mmHg MV V2 mean: 41.7 cm/sec Ao V2 mean: 135.5 cm/sec MV mean P.86 mmHg Ao mean P.9 mmHg MV V2 VTI: 31.9 cm Ao V2 VTI: 49.4 cm AV (velocity ratio): 0.61 LV V1 max: 110.8 cm/sec PA V2 max: 120.1 cm/sec LV V1 max P.9 mmHg PA V2 mean: 75.9 cm/sec LV V1 mean P.9 mmHg LV V1 mean: 82.3 cm/sec LV V1 VTI: 30.0 cm ECHO/Echo Complete W/ Contrast Interpretation Summary The estimated ejection fraction is 60 %. Diastolic function is indeterminate. Moderate concentric left ventricular hypertrophy. Aortic sclerosis, no stenosis. The left atrium is severely enlarged. The right atrium is moderately enlarged. The study was technically difficult. Contrast injection was performed. Ordering Physician: Eunice Melgar Referring Physician: Chinmay Sin Performed By: Manuela River, RUTH, RVT
[2023-06-19] MEDS: Atorvastatin Calcium 40 MG Tablet PO (19:07)
[2023-06-19] MEDS: 0.9% Saline Lock 10 ML Syringe IV (19:35)
[2023-06-19] MEDS: Budesonide Respules 0.5 MG/2 ML AMPUL.NEB. INHALATION (20:48)
[2023-06-19] MEDS: Albuterol 2.5 MG/3 ML VIAL.NEB. INHALATION (20:48)
[2023-06-19 21:02] LABS: Troponin-I HS 24 pg/mL (3.0-78.0)
[2023-06-19] MEDS: guaiFENesin 600 MG Tablet PO (21:10)
[2023-06-19] MEDS: APIXABAN 5 MG TABLET PO (21:10)
[2023-06-19] MEDS: hydrALAZINE 20 MG/ML Vial 10 MG IV (21:15)
[2023-06-19] MEDS: Insulin Lispro 100 UNIT/ML INSULN.PEN SC (21:17)
[2023-06-19 22:41] LABS: Troponin-I HS 23 pg/mL (3.0-78.0)
[2023-06-19 22:48] LABS: Bedside Glucose 277 mg/dL (74-106)
[2023-06-20] VITALS (10 sets, daily range): BP systolic 119–187; BP diastolic 55–76; PULSE 47–58; RESP 16–32; TEMP 36.3–36.9; O2SAT 96–99; BMI 37.1
[2023-06-20 02:22] LABS: Troponin-I HS 24 pg/mL (3.0-78.0)
[2023-06-20] MEDS: hydrALAZINE 20 MG/ML Vial 10 MG IV (04:05)
[2023-06-20] MEDS: Levothyroxine 150 MCG Tablet PO (06:45)
[2023-06-20] MEDS: Insulin Lispro 100 UNIT/ML INSULN.PEN SC ×4 (06:45→21:55)
[2023-06-20 06:49] LABS: Absolute Lymphocyte Count 1.05 X10^3/uL (0.83-4.51); Absolute Neutrophil Count 7.6 X10^3/uL (2.0-7.7); Basophil# 0.04 X10^3/uL; Basophil% 0.4 % (0-1); Eosinophil# 0.13 X10^3/uL; Eosinophils% 1.3 % (0-5); Hematocrit 32.4 % (40-54); Hemoglobin 10.2 g/dL (13.0-16.5); Lymphocyte # 1.05 X10^3/ul (0.83-4.51); Lymphocyte % 10.8 % (19-41); Mean Corp Hgb Conc 31.5 g/dL (32-36); Mean Platelet Vol. 10.9 fl (6.2-12.0); Monocyte# 0.94 X10^3/uL; Monocyte% 9.6 % (0-10); NRBC Flagged by Analyzer 0 % (0-5); Neutrophil # 7.57 X10^3/uL (2.7-7.7); Neutrophil % 77.7 % (47-70); Platelet Count 301 K/mm3 (150-450); RBC Distribution Width CV 13.5 % (11.6-14.6); RBC Distribution Width SD 44.3 fl (35.1-43.9); Red Blood Count 3.64 M/mm3 (4.6-6.2); White Blood Count 9.8 K/mm3 (4.4-11.0)
[2023-06-20 07:42] LABS: ALB/GLOB Ratio 0.8 RATIO (0.9-2.4); AST(SGOT) 11 U/L (15-37); Alanine Aminotransfer ALT/SGPT 14 U/L (16-61); Albumin, Serum 2.9 g/dL (3.2-5.0); Alkaline Phosphatase 105 U/L (45-117); Anion Gap 2 (5-15); BUN 21 mg/dL (7-18); BUN/Creat Ratio 17.4 RATIO (10-20); Calcium,Total 8.3 mg/dL (8.5-10.1); Chloride 101 mmol/L (98-107); Cholesterol 122 mg/dL (200); Creatinine, Serum 1.21 mg/dL (0.70-1.30); EST Glomerular Filtration Rate 63 mL/min (>60); Est Glom Filt Rate - Afr Amer 77 mL/min (>60); Estimated Creatinine Clearance 77.27 ml/min; Globulin 3.6 g/dL (2.2-4.2); Glucose 204 mg/dL (74-106); High Density Lipoprotein 48 mg/dL; Potassium 3.7 mmol/L (3.5-5.1); Protein, Total 6.5 g/dL (6.4-8.2); Sodium Level 136 mmol/L (136-145); Thyroid Stim Hormone (TSH) 3.05 uIU/mL (0.358-3.74); Triglycerides 108 mg/dL; Very Low Density Lipoprotein 22 mg/dL (5-40)
[2023-06-20] MEDS: Budesonide Respules 0.5 MG/2 ML AMPUL.NEB. INHALATION (07:42)
[2023-06-20 08:14] LABS: Bedside Glucose 188 mg/dL (74-106)
[2023-06-20 08:17] LABS: Hemoglobin A1c 7.9 % (3.8-5.6)
[2023-06-20] MEDS: Aspirin 81 MG TAB.CHEW PO (09:31)
[2023-06-20] MEDS: Pantoprazole Sodium 20 MG Tablet PO (09:31)
[2023-06-20] MEDS: guaiFENesin 600 MG Tablet PO ×2 (09:31→21:55)
[2023-06-20] MEDS: APIXABAN 5 MG TABLET PO ×2 (09:31→21:55)
[2023-06-20] MEDS: Furosemide 40 MG/4 ML Vial IV ×2 (09:31→18:19)
[2023-06-20] MEDS: Potassium Chloride Oral Tablet 20 MEQ PO (09:31)
[2023-06-20] MEDS: Acetaminophen 325 MG Tablet 650 MG PO (09:32)
[2023-06-20] MEDS: 0.9% Saline Lock 10 ML Syringe IV ×2 (09:35→18:19)
[2023-06-20] MEDS: Albuterol 2.5 MG/3 ML VIAL.NEB. INHALATION (11:15)
[2023-06-20 11:54] LABS: Bedside Glucose 278 mg/dL (74-106)
[2023-06-20] MEDS: Ferrous Sulfate 325 MG Tablet PO (13:28)
--- NOTE | 2023-06-20 15:41 | PCM.PN.HOSP ---
Reason for Visit Reason for Visit: Diagnoses Heart failure, unspecified (06/19/23) Objective Data Objective Data Vital Signs: Vital Signs Temp Pulse Resp BP Pulse Ox O2 Del Method O2 Flow Rate 98.1 F 58 L 16 119/55 L 96 Trach Collar 6 06/20/23 09:23 06/20/23 11:15 06/20/23 11:15 06/20/23 09:23 06/20/23 09:23 06/20/23 09:42 06/20/23 09:42 FiO2 28 06/20/23 07:42 Oxygen Flow Rate (L/min) 6 Oxygen Delivery Method Trach Collar Weight: 266 lb 5.094 oz Body Mass Index (BMI) 37.1 Intake & Output: Intake and Output for Last 24 Hours 06/18/23 06/19/23 06/20/23 23:59 23:59 23:59 Intake Total 620 / 620 Output Total 700 / 700 550 / 550 Balance -700 / -700 70 / 70 Lab / Micro Data 06/20/23 05:55 06/20/23 05:55 Labs: Laboratory Results - last 24 hr 06/19/23 14:50: Sodium 136, Potassium 4.4, Chloride 102, Carbon Dioxide 31.0, Anion Gap 3 L, BUN 21 H, Creatinine 1.24, Estim Creat Clear Calc 76.21, Est GFR (MDRD) Af Amer 75, Est GFR (MDRD) Non-Af 62, BUN/Creatinine Ratio 16.9, Glucose 336 H, Calcium 8.6, Magnesium 2.1, Troponin I High Sens 27, B-Natriuretic Peptide 968.2 H 06/19/23 20:06: Troponin I High Sens 06/19/23 21:16: POC Glucose 277 H 06/19/23 21:55: Troponin I High Sens 06/20/23 01:45: Troponin I High Sens 06/20/23 05:55: WBC 9.8, RBC 3.64 L, Hgb 10.2 L, Hct 32.4 L, MCV 89.0, MCH 28.0, MCHC 31.5 L, RDW Std Deviation 44.3 H, RDW Coeff of Alisson 13.5, Plt Count 301, MPV 10.9, Immature Gran % (Auto) 0.200, Neut % (Auto) 77.7 H, Lymph % (Auto) 10.8 L, [place] % (Auto) 9.6, Eos % (Auto) 1.3, Baso % (Auto) 0.4, Absolute Neuts (auto) 7.6, Absolute Lymphs (auto) 1.05, Nucleated RBC % 0, Sodium 136, Potassium 3.7, Chloride 101, Carbon Dioxide 33.0 H, Anion Gap 2 L, BUN 21 H, Creatinine 1.21, Estim Creat Clear Calc 77.27, Est GFR (MDRD) Af Amer 77, Est GFR (MDRD) Non-Af 63, BUN/Creatinine Ratio 17.4, Glucose 204 H, Hemoglobin A1c 7.9 H, Calcium 8.3 L, Total Bilirubin 0.40, AST 11 L, ALT 14 L, Alkaline Phosphatase 105, Total Protein 6.5, Albumin 2.9 L, Globulin 3.6, Albumin/Globulin Ratio 0.8 L, Triglycerides 108, Cholesterol 122, LDL Cholesterol 52, VLDL Cholesterol 22, HDL Cholesterol 48, TSH 3.05 06/20/23 06:43: POC Glucose 188 H 06/20/23 11:06: POC Glucose 278 H Radiography Diagnostic Testing: Radiology Impression Echocardiogram 06/19/23 18:27 Interpretation Summary The estimated ejection fraction is 60 %. Diastolic function is indeterminate. Moderate concentric left ventricular hypertrophy. Aortic sclerosis, no stenosis. The left atrium is severely enlarged. The right atrium is moderately enlarged. The study was technically difficult. Contrast injection was performed. Ordering Physician: Eunice Melgar Referring Physician: Chinmay Sin Performed By: Manuela River, RUTH, RVT Physical Exam Narrative Seen and examined. Patient has swelling of lower extremities, no scrotal edema. History of tracheostomy. History of chronic heart failure, COPD with multiple recurrent hospitalizations Physical exam General: Alert, Oriented x3, Cooperative, BMI 37.1 kg/m?. Morbid obesity HEENT:Tracheostomy collar. Atraumatic, PERRLA, EOMI, Normocephalic Oral: No Gingival or Mucosal Lesions/ Ulcerations Neck: Supple, No JVD, Negative Carotid Bruits Chest wall/Lungs: Air entry diminished in bilateral lung bases. Expiratory phase prolonged. No crepitation/rhonchi Cardiovascular: Regular rate, Regular Rhythm, Normal S1, Normal S2, No M/G/R Abdomen no scrotal edema.: Bowel Sounds Present, Soft, Non Tender, Non-Distended : No dysuria. No renal angle tenderness. No suprapubic tenderness. Extremities: 2+ thigh-high edema, Capillary Refill Less than 3 Seconds Skin: No rashes, No breakdown Musculoskeletal: No Tenderness to Palpation of Joints or Extremities. ROM restricted. Neurological: Cranial nerves II-XII grossly intact, DTR 2+/4. No acute focal neurological deficit. Psych/Mental Status: Flat affect Assessment & Plan Assessment/Plan (1) Acute exacerbation of CHF (congestive heart failure): PLAN: Plan The patient is a 68 y/o M with multiple comorbidities and recurrent admission came to ED with SOB, dyspnea on exertion, weight gain increased swelling of lower extremities in addition to cough and occasional whitish sputum production, hypoxia 85% on room air. Patient has oxygen but did not know how to use it #1. Acute decompensated HFpEF with acute hypoxia: Patient is being admitted in PCU. On IV Lasix. Heart failure core measures including intake and output, fluid restriction less than 1500 mL, daily weight monitoring, kidney and electrolytes monitoring. Serial troponins negative. ACS ruled out. On baby aspirin, Eliquis, statin and sotalol. Patient has sinus bradycardia heart rate in low 50s. Blood pressure normal. Patient has several episodes of ALEJANDRA in the past with creatinine going up from 1.57-1.81 and maximum 2.38 probably from diuresis. Therefore patient not on REBECCA or ARB. Blood pressure also not high. Last echo 09/12/2022 w/ EF 65%, no evidence of diastolic dysfunction noted, mildly enlarged RA, moderately enlarged LA Echocardiogram 06/19/23 18:27 Interpretation Summary The estimated ejection fraction is 60 %. Diastolic function is indeterminate. Moderate concentric left ventricular hypertrophy. Aortic sclerosis, no stenosis. The left atrium is severely enlarged. The right atrium is moderately enlarged. #2. History recurrent chronic left-sided pleural effusion: History of previous chest tube placements as well as previous Pleurx catheter secondary to chronic recurrent left-sided pleural effusions which was eventually removed. #3. COPD w/ Chronic Hypoxic Respiratory Failure (4L NC q HS, but does use intermittent 2-4L during the day) with allergic rhinitis: On home COPD regimen. Not in exacerbation. Continue bronchodilator. #4. CAD: s/p CABG x 2 and PCI,continue patient aspirin, eliquis, statin, #5. Anxiety and Depression: We will continue patient home mirtazapine and BuSpar home regimen. #6. Chronic pain syndrome: Secondary to chronic back pain s/p 1977, encourage continued frequent positional changes, per current list not on any chronic pain regimen. #7. 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 A1c 7.9%. Glucose 204 in BMP. Accu-Cheks range from 1 80-270. #8. Hypothyroidism: continue patient on levothyroxine regimen, TSH 3.05 #9. Chronic AF: Patient admitted to [facility] approximate 1 month prior with A-fib RVR with successful cardioversion, currently in sinus rhythm, we will continue patient on Eliquis therapy. Patient notes that he was transition from potentially Cardizem to sotalol bu awaiting medication update. Once list obtained we will continue with hold parameters given bradycardia. #10. Hypertension: Continue home regimen sotalol once regimen verified with hold parameters given sinus bradycardia upon presentation, IV Lasix as noted above, PRN hydralazine. #11. Hyperlipidemia: Continue home statin regimen. FLP LDL 52, total cholesterol and triglyceride normal. #12. Hx Laryngeal CA: S/p laryngectomy with tracheostomy, continue routine tracheostomy care, considered in remission. #13. Chronic Kidney Disease Stage IIIa : Admission BUN/Cr /1.24, baseline renal function primarily has more recently primarily been 1.4-1.6. Had multiple episodes of ALEJANDRA in the past. #14. Chronic normocytic anemia/chronic iron deficiency anemia: Admission hemoglobin 10.8, MCV 88.3, baseline appears primarily more recently 8-9 however previous to this had been 9-10 but remotely, stable, continue to trend, will continue iron supplementation. #15. Obesity: Weight loss and lifestyle changes encouraged. #16. Former tobacco use: Encourage continued tobacco cessation. #17. GERD: We will continue patient on PPI. #18. BPH: We will continue patient on Flomax regimen. #19. DVT prophylaxis: Continue home Eliquis regimen. #20. CODE status: Patient healthcare power of traffic law attorney is his and living will is in place. Discussed CODE status at length including difference between FULL code, DNR-CCA and DNR-CC status. Following discussions about the differences in these status, requested Full Code status. Did discuss the concept of his significant underlying diagnosis history and the likelihood of a poor outcome if a cardiopulmonary event did occur. Clinical Impression(s) from Imaging Studies Chest X-Ray 06/19/23 15:05 IMPRESSION: Small left pleural effusion with bibasilar atelectasis more prominent on the left side with mild degree of superimposed vascular congestion and CHF. A tracheostomy tube is seen with the tip at 5 cm proximal to the ingris. Electronically Signed: Tashi Lipscomb MD at 15:27 EDT , Echocardiogram 06/19/23 18:27 Interpretation Summary The estimated ejection fraction is 60 %. Diastolic function is indeterminate. Moderate concentric left ventricular hypertrophy. Aortic sclerosis, no stenosis. The left atrium is severely enlarged. The right atrium is moderately enlarged. The study was technically difficult. Contrast injection was performed. Ordering Physician: Eunice Melgar Referring Physician: Chinmay Sin Performed By: Manuela River, RUTH, RVT Charges/Coding Visit Charges Inpatient E&M: 78351 Subs Hosp L2
--- NOTE | 2023-06-20 15:41 | CASEMGMT ---
ANUSHA EDGAR Assessment Face to Face with patient for initial transition planning/care coordination assessment. ANUSHA EDGAR introduced self and role at [facility], pt voices understanding. Pt is A&Ox4 and is resting comfortably in the chair and is calm. Care providers, pharmacy, and demographics verified. Admitting dx: HF Exacerbation PCP: Chinmay Sin Specialists: Dr. Ballard (Nephro), Debo BOWENS ([facility]), [employer] [facility] [employer] through [facility] (pt could not recall the name) Preferred Pharmacy: [facility] Insurance: [facility] Prescription Benefit: Yes LNOK: Manuela Chow (W) Living Arrangements: Pt lives with his and 30 y/o son in a single story home with 4 steps to enter ADLs/IADLs: Ind Transportation: Self , DME: Home oxygen supplied through [employer]. Pt current order states 2L continuous via trach collar. Pt states that he has portable tanks at home, Pulse Ox, and oxygen concentrator. Pt reports that he has a working CBGM and enough supplies. Pt also has a cane at home. HHC/SNF: Denies history or needs Pt?s goal: Home Plan: Home with O2 and OP therapy. 6-Click is 20. PT/OT evals pending. Pt denies the need for SNF placement as well as HHC. Pt states that he would be interested in attending OP therapy after DC. Pt states that he would like to set up the appt for this himself. ANUSHA Ferreira CM on PCU updated and to follow. Bonita Vila RN, CM
[2023-06-20] MEDS: Atorvastatin Calcium 40 MG Tablet PO (18:19)
[2023-06-20 18:43] LABS: Bedside Glucose 262 mg/dL (74-106)
[2023-06-20 22:36] LABS: Bedside Glucose 200 mg/dL (74-106)
[2023-06-21] VITALS (7 sets, daily range): BP systolic 126–151; BP diastolic 65–72; PULSE 45–88; RESP 18–24; TEMP 36.4–36.9; O2SAT 92–100
[2023-06-21] MEDS: Acetaminophen 325 MG Tablet 650 MG PO (04:01)
[2023-06-21] MEDS: Levothyroxine 150 MCG Tablet PO (06:41)
[2023-06-21] MEDS: Insulin Lispro 100 UNIT/ML INSULN.PEN SC ×4 (06:45→22:08)
[2023-06-21 06:46] LABS: Absolute Lymphocyte Count 0.85 X10^3/uL (0.83-4.51); Absolute Neutrophil Count 5.6 X10^3/uL (2.0-7.7); Basophil# 0.03 X10^3/uL; Basophil% 0.4 % (0-1); Eosinophil# 0.24 X10^3/uL; Eosinophils% 3.1 % (0-5); Hematocrit 32.1 % (40-54); Lymphocyte # 0.85 X10^3/ul (0.83-4.51); Lymphocyte % 11.1 % (19-41); Mean Corp Hgb Conc 31.2 g/dL (32-36); Mean Corpuscular Hgb 27.8 pg (27.0-32.0); Mean Corpuscular Volume 89.2 fL (80-94); Mean Platelet Vol. 10.6 fl (6.2-12.0); Monocyte# 0.94 X10^3/uL; Monocyte% 12.3 % (0-10); NRBC Flagged by Analyzer 0 % (0-5); Neutrophil # 5.57 X10^3/uL (2.7-7.7); Neutrophil % 72.8 % (47-70); Platelet Count 260 K/mm3 (150-450); RBC Distribution Width CV 13.7 % (11.6-14.6); RBC Distribution Width SD 44.6 fl (35.1-43.9); White Blood Count 7.7 K/mm3 (4.4-11.0)
[2023-06-21 07:13] LABS: Anion Gap 3 (5-15); BUN 22 mg/dL (7-18); BUN/Creat Ratio 17.3 RATIO (10-20); Calcium,Total 8.2 mg/dL (8.5-10.1); Chloride 102 mmol/L (98-107); Creatinine, Serum 1.27 mg/dL (0.70-1.30); EST Glomerular Filtration Rate 60 mL/min (>60); Est Glom Filt Rate - Afr Amer 72 mL/min (>60); Estimated Creatinine Clearance 73.62 ml/min; Glucose 168 mg/dL (74-106); Potassium 3.8 mmol/L (3.5-5.1); Sodium Level 137 mmol/L (136-145)
[2023-06-21 07:15] LABS: Bedside Glucose 167 mg/dL (74-106)
[2023-06-21] MEDS: Budesonide Respules 0.5 MG/2 ML AMPUL.NEB. INHALATION ×2 (07:24→19:07)
[2023-06-21] MEDS: Pantoprazole Sodium 20 MG Tablet PO (09:36)
[2023-06-21] MEDS: Potassium Chloride Oral Tablet 20 MEQ PO (09:36)
[2023-06-21] MEDS: APIXABAN 5 MG TABLET PO ×2 (09:36→22:08)
[2023-06-21] MEDS: Aspirin 81 MG TAB.CHEW PO (09:36)
[2023-06-21] MEDS: guaiFENesin 600 MG Tablet PO ×2 (09:37→22:08)
[2023-06-21] MEDS: Furosemide 40 MG/4 ML Vial IV ×2 (09:38→17:02)
[2023-06-21] MEDS: Sotalol Hydrochloride 80 MG Tablet PO (09:39)
[2023-06-21] MEDS: Ferrous Sulfate 325 MG Tablet PO (12:10)
[2023-06-21 12:32] LABS: Bedside Glucose 330 mg/dL (74-106)
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
[2023-06-21 16:52] LABS: Bedside Glucose 217 mg/dL (74-106)
[2023-06-21] MEDS: Atorvastatin Calcium 40 MG Tablet PO (17:02)
[2023-06-21] MEDS: Insulin Lispro 100 UNIT/ML INSULN.PEN 10 UNIT SC (17:40)
[2023-06-21 22:29] LABS: Bedside Glucose 201 mg/dL (74-106)
[2023-06-21] MEDS: Insulin Glargine-YFGN 100 UNIT/ML Pen 10 UNIT SC (22:47)
[2023-06-22 02:30] VITALS: BP 139/65; PULSE 48; RESP 17; TEMP 36.1; O2SAT 98
[2023-06-22 03:00] VITALS: BP 132/76; PULSE 88; RESP 18; TEMP 36.9; O2SAT 94
[2023-06-22] MEDS: Levothyroxine 150 MCG Tablet PO (06:39)
[2023-06-22 06:57] LABS: Absolute Lymphocyte Count 0.93 X10^3/uL (0.83-4.51); Absolute Neutrophil Count 4.7 X10^3/uL (2.0-7.7); Basophil# 0.04 X10^3/uL; Basophil% 0.6 % (0-1); Eosinophil# 0.26 X10^3/uL; Eosinophils% 3.7 % (0-5); Hematocrit 33.1 % (40-54); Hemoglobin 10.3 g/dL (13.0-16.5); Lymphocyte # 0.93 X10^3/ul (0.83-4.51); Lymphocyte % 13.4 % (19-41); Mean Corp Hgb Conc 31.1 g/dL (32-36); Mean Corpuscular Hgb 28.1 pg (27.0-32.0); Mean Corpuscular Volume 90.2 fL (80-94); Mean Platelet Vol. 10.5 fl (6.2-12.0); Monocyte% 14.4 % (0-10); NRBC Flagged by Analyzer 0 % (0-5); Neutrophil # 4.71 X10^3/uL (2.7-7.7); Neutrophil % 67.6 % (47-70); Platelet Count 286 K/mm3 (150-450); RBC Distribution Width CV 13.8 % (11.6-14.6); RBC Distribution Width SD 45.5 fl (35.1-43.9); Red Blood Count 3.67 M/mm3 (4.6-6.2)
[2023-06-22] MEDS: Budesonide Respules 0.5 MG/2 ML AMPUL.NEB. INHALATION (07:00)
[2023-06-22 07:01] VITALS: PULSE 55; RESP 18; O2SAT 94
[2023-06-22 08:30] VITALS: BP 169/59; PULSE 51; RESP 16; TEMP 36.8; O2SAT 95
[2023-06-22] MEDS: Insulin Lispro 100 UNIT/ML INSULN.PEN 10 UNIT SC ×2 (08:37→13:31)
[2023-06-22] MEDS: Aspirin 81 MG TAB.CHEW PO (08:38)
[2023-06-22] MEDS: guaiFENesin 600 MG Tablet PO (08:38)
[2023-06-22] MEDS: Potassium Chloride Oral Tablet 20 MEQ PO (08:38)
[2023-06-22] MEDS: Pantoprazole Sodium 20 MG Tablet PO (08:38)
[2023-06-22] MEDS: Sotalol Hydrochloride 80 MG Tablet PO (08:38)
[2023-06-22] MEDS: Insulin Glargine-YFGN 100 UNIT/ML Pen 10 UNIT SC (08:39)
[2023-06-22] MEDS: APIXABAN 5 MG TABLET PO (08:39)
[2023-06-22] MEDS: Furosemide 40 MG/4 ML Vial IV (08:39)
--- NOTE | 2023-06-22 08:42 | DCINST_ITS ---
Discharge Instructions Diet Discharge Diet: Low fat / Low cholesterol, 1800 Calorie Control Diet and 6 Cup Fluid Restriction Activity Discharge Activity: Return to Normal Activity Weight Bearing Status: Weight bearing as tolerated Dressing / Incision Call your doctor if you observe: Fever of 101 or Higher, Coldness, Increased Pain, Numbness or Tingling, Change in Color, Inability to urinate, Inability to have a bowel movement, Shortness of breath, Dizziness, Fainting spells, Swelling in the ankles, Chest pain, Prolonged hiccupping, Increased palpitations (irregular heartbeat) and Calf discomfort Follow Up Care When: IN 2 WEEKS Test Results: Test results from this visit will be discussed in further detail at your follow- up appointment, if applicable. Discharge Plan Admission Admit Date/Time: 06/19/23 16:18 Primary Reason for Your Visit: CHF exacerbation Attending Provider: Ashu Oliver Primary Care Provider: Chinmay Sin Consulting Providers: Eunice Melgar Discharge Orders/Prescriptions Prescriptions: New insulin lispro [Humalog KwikPen Insulin] 100 unit/mL Insulin Pen 10 unit subcut TIDAC 30 Days Qty: 15 4RF Rx Instructions: Hold if glucose less than 130 mg/dl insulin lispro [Humalog KwikPen Insulin] 100 unit/mL Insulin Pen See Protocol subcut ACHS Qty: 0 0RF Protocol: 3. Sliding Scale Insulin Med Dosing Condition: 150-189 mg/dl = 1 unit Condition: 190-229 mg/dl = 2 units Condition: 230-269 mg/dl = 3 units Condition: 270-309 mg/dl = 4 units Condition: 310-349 mg/dl = 5 units Condition: 350-399 mg/dl = 6 units Condition: 400-449 mg/dl = 7 units Condition: Greater than 449 call physician Protocol Text: - Use for Total Daily Dose of Insulin 37-55 units - Obsese, infected, or steroid patients MEDIUM DOSING ALGORITHIM insulin glargine [Lantus Solostar U-100 Insulin] 100 unit/mL (3 mL) insulin pen 10 unit subcut DAILY 30 Days Qty: 15 4RF Rx Instructions: Hold if glucose less than 130 mg/dl (DME) needle (disp) 32 gauge 32 gauge x 5/16 needle See Rx Instructions .Route Qty: 100 2RF Rx Instructions: As directed Continued ferrous sulfate [FeroSul] 325 mg (65 mg iron) tablet 325 mg PO DAILY Eliquis 5 mg tablet 5 mg PO BID Qty: 180 4RF levothyroxine 150 MCG tablet 150 mcg PO DAILY Patient Comments: thyroid atorvastatin 40 MG tablet 40 mg PO DAILY@1700 ipratropium-albuterol 3 ML solution for nebulization 3 ml inhalation Q4H Patient Comments: breathing acetaminophen 325 mg Tablet 650 mg PO DAILY PRN (Reason: Pain) omeprazole 20 mg capsule,delayed release(DR/EC) 20 mg PO DAILY Patient Comments: TAKE 1 CAPSULE BY MOUTH ONCE DAILY budesonide [Pulmicort] 0.5 mg/2 mL Suspension For Nebulization 0.5 mg INHALATION BID potassium chloride 10 mEq capsule, extended release 20 meq PO DAILY Patient Comments: TAKE 2 CAPSULES BY MOUTH ONCE DAILY Trulicity 4.5 mg/0.5 mL pen injector 4.5 mg subcut WE guaifenesin [Mucinex] 600 mg Tablet Extended Release 12hr 600 mg PO BID Qty: 14 0RF sotalol 80 mg tablet 80 mg PO BID (DME) FreeStyle Zayra 2 Sensor Kit See Rx Instructions .ROUTE .MEDSUPPLY Qty: 2 6RF Rx Instructions: As directed Changed furosemide 40 mg tablet 60 mg PO BID 30 Days Qty: 90 2RF Referrals / Follow Up: Ke Grace DO [Med Staff - Active Staff] - Within 1 Month Chinmay Sin MD [Primary Care Provider] - Within 2 Weeks Tyler Ruiz NP, SERVICE ORDER DISPATCHER-C [Med Staff - Adv Practice Prof] - Within 2 Weeks (Heart failure) Disposition Disposition (needs filled in before D/C Order can be placed): Home, Self Care
[2023-06-22] MEDS: 0.9% Saline Lock 10 ML Syringe IV (08:43)
[2023-06-22 09:06] LABS: Bedside Glucose 150 mg/dL (74-106)
[2023-06-22 09:19] VITALS: BP 169/59; PULSE 51; RESP 16; TEMP 36.8; O2SAT 95
--- NOTE | 2023-06-22 09:21 | PCM.DC.SUM ---
Providers Date of Admission: 06/19/23 Date of Discharge: 06/22/23 Primary Care Physician: Dr. Chinmay Sin MD Reason For Visit: HF EXACERBATION Diagnosis Discharge Diagnosis (1) Acute exacerbation of CHF (congestive heart failure): Status: Chronic Code(s): I50.9 - Heart failure, unspecified Plan The patient is a 68 y/o M with multiple comorbidities and recurrent admission came to ED with SOB, dyspnea on exertion, weight gain increased swelling of lower extremities in addition to cough and occasional whitish sputum production, hypoxia 85% on room air. Patient has oxygen but did not know how to use it #1. Acute decompensated HFpEF with acute hypoxia: Patient is being admitted in PCU. On IV Lasix. Heart failure core measures including intake and output, fluid restriction less than 1500 mL, daily weight monitoring, kidney and electrolytes monitoring. Serial troponins negative. ACS ruled out. On baby aspirin, Eliquis, statin and sotalol. Patient has sinus bradycardia heart rate in low 50s. Blood pressure normal. Patient has several episodes of ALEJANDRA in the past with creatinine going up from 1.57-1.81 and maximum 2.38 probably from diuresis. Therefore patient not on REBECCA or ARB. Blood pressure also not high. Last echo 09/12/2022 w/ EF 65%, no evidence of diastolic dysfunction noted, mildly enlarged RA, moderately enlarged LA Echocardiogram 06/19/23 18:27 Interpretation Summary The estimated ejection fraction is 60 %. Diastolic function is indeterminate. Moderate concentric left ventricular hypertrophy. Aortic sclerosis, no stenosis. The left atrium is severely enlarged. The right atrium is moderately enlarged. 06/20: Improvement of the leg swelling and abdominal swelling. Effective diuresis. Continue. 06/21: Improvement in shortness of breath, leg swelling and abdominal swelling. Discharged on furosemide 60 mg twice daily, previously on 40 mg twice daily. Follow-up Tyler ruiz NP cardiology in 2 weeks. #2. History recurrent chronic left-sided pleural effusion: History of previous chest tube placements as well as previous Pleurx catheter secondary to chronic recurrent left-sided pleural effusions which was eventually removed. 06/20: Patient is doing well on 25% FiO2 trach collar. #3. COPD w/ Chronic Hypoxic Respiratory Failure (4L NC q HS, but does use intermittent 2-4L during the day) with allergic rhinitis: On home COPD regimen. Not in exacerbation. Continue bronchodilator. 5/17: Follow-up with Dr. Grace. #4. CAD: s/p CABG x 2 and PCI,continue patient aspirin, eliquis, statin, #5. Anxiety and Depression: Continue patient home mirtazapine and BuSpar home regimen. #6. Chronic pain syndrome: Secondary to chronic back pain s/p 1977, encourage continued frequent positional changes, per current list not on any chronic pain regimen. #7. 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 A1c 7.9%. Glucose 204 in BMP. Accu-Cheks range from 1 80-270. 06/20 glucose is 168 in BMP. Glucose 160 7 in the morning and 330 in the afternoon. Will uptitrate the insulin 06/21: Glucose was elevated therefore patient was started on Lantus and Humalog insulin. Prescription for Lantus and Humalog insulin and insulin needle given. #8. Hypothyroidism: continue patient on levothyroxine regimen, TSH 3.05 #9. Chronic AF currently in sinus rhythm: Patient admitted to [facility] 1 month prior with A-fib RVR with successful cardioversion, currently in sinus rhythm, continue patient on Eliquis therapy. On sotalol 80 mg twice daily #10. Hypertension: Continue home regimen sotalol once regimen verified with hold parameters given sinus bradycardia upon presentation, IV Lasix as noted above, PRN hydralazine. 06/21: Blood pressure is controlled. #11. Hyperlipidemia: Continue home statin regimen. FLP LDL 52, total cholesterol and triglyceride normal. #12. Hx Laryngeal CA: S/p laryngectomy with tracheostomy, continue routine tracheostomy care, considered in remission. #13. Chronic Kidney Disease Stage IIIa : Admission BUN/Cr 21/1.24, baseline renal function primarily has more recently primarily been 1.4-1.6. Had multiple episodes of ALEJANDRA in the past. 06/20: Creatinine 1.27 BUN 22. No significant change from baseline 1.24. #14. Chronic normocytic anemia/chronic iron deficiency anemia: Admission hemoglobin 10.8, MCV 88.3, baseline appears primarily more recently 8-9 however previous to this had been 9-10 but remotely, stable, continue to trend, continue iron supplementation. 5/16 H&H 10.0/32%. Platelet count normal. #15. Obesity: Weight loss and lifestyle changes encouraged. #16. Former tobacco use: Encourage continued tobacco cessation. #17. GERD: continue patient on PPI. #18. BPH: continue patient on Flomax regimen. #19. DVT prophylaxis: Continue home Eliquis regimen. #20. CODE status: Patient healthcare power of bankruptcy attorney is his and living will is in place. Discussed CODE status at length including difference between FULL code, DNR-CCA and DNR-CC status. Following discussions about the differences in these status, requested Full Code status. Discharge medication reconciliation done. Discharge follow-up instructions completed. Discharge process discussed with the patient and all questions were answered to patient's satisfaction. Follow with PCP in 1 to 2 weeks Total time spent, exact 35 minutes on discharge meds reconciliation, examination, coordination of care with nurses and ancillary staff, review of imaging and blood test and discussion with the patient on follow-up instructions. Clinical Impression(s) from Imaging Studies Chest X-Ray 06/19/23 15:05 IMPRESSION: Small left pleural effusion with bibasilar atelectasis more prominent on the left side with mild degree of superimposed vascular congestion and CHF. A tracheostomy tube is seen with the tip at 5 cm proximal to the ingris. Electronically Signed: Tashi Lipscomb MD at 15:27 EDT , Echocardiogram 06/19/23 18:27 Interpretation Summary The estimated ejection fraction is 60 %. Diastolic function is indeterminate. Moderate concentric left ventricular hypertrophy. Aortic sclerosis, no stenosis. The left atrium is severely enlarged. The right atrium is moderately enlarged. The study was technically difficult. Contrast injection was performed. Ordering Physician: Eunice Melgar Referring Physician: Chinmay Sin Performed By: Manuela River, RUTH, RVT Medications at Discharge Home Medications levothyroxine 150 mcg tablet 150 mcg PO DAILY hypothyroidism 06/04/14 atorvastatin 40 mg tablet 40 mg PO DAILY@1700 cholesterol 04/12/17 ipratropium 0.5 mg-albuterol 3 mg (2.5 mg base)/3 mL nebulization soln 3 ml inhalation Q4H sob 04/12/17 flash glucose sensor (FreeStyle Zayra 2 Sensor kit) #2 ea 05/17/21 acetaminophen 325 mg tablet 650 mg PO DAILY PRN Pain 12/06/21 budesonide 0.5 mg/2 mL suspension for nebulization (Pulmicort) 0.5 mg inhalation BID sob 12/06/21 omeprazole 20 mg capsule,delayed release 20 mg PO DAILY GERD 12/06/21 ferrous sulfate 325 mg (65 mg iron) tablet (FeroSul) 325 mg PO DAILY iron 08/29/22 dulaglutide 4.5 mg/0.5 mL subcutaneous pen injector (Trulicity) 4.5 mg subcut WE DIABETES 11/13/22 potassium chloride 10 mEq capsule,extended release 20 meq PO DAILY mineral 11/13/22 guaifenesin 600 mg tablet, extended release 12 hr (Mucinex) 600 mg PO BID #14 tabs 11/17/22 apixaban 5 mg tablet (Eliquis) 5 mg PO BID blood thinner #180 tabs 03/02/23 sotalol 80 mg tablet 80 mg PO BID heart 06/20/23 furosemide 40 mg tablet 60 mg (1.5 x 40 mg) PO BID EDEMA 1 month #90 tabs 06/22/23 insulin glargine 100 unit/mL (3 mL) subcutaneous pen (Lantus Solostar U-100 Insulin) 10 unit (0.1 mL) subcut DAILY 1 month #15 mL 06/22/23 insulin lispro 100 unit/mL subcutaneous pen (Humalog KwikPen (U-100) Insulin) 10 unit (0.1 mL) subcut TIDAC 1 month #15 mL 06/22/23 insulin lispro 100 unit/mL subcutaneous pen (Humalog KwikPen (U-100) Insulin) See Protocol subcut ACHS #0 mL 06/22/23 pen needle, diabetic 32 gauge x 04/20 #100 ea 06/22/23 Physical Exam Narrative Seen and examined. Patient has improvement over swelling of lower extremities, no scrotal edema. Patient can walk with help of cane. Has severe right knee arthritis. History of tracheostomy. History of chronic heart failure, COPD with multiple recurrent hospitalizations Physical exam General: Alert, Oriented x3, Cooperative, BMI 37.1 kg/m?. Morbid obesity HEENT:Tracheostomy collar. Atraumatic, PERRLA, EOMI, Normocephalic Oral: No Gingival or Mucosal Lesions/ Ulcerations Neck: Supple, No JVD, Negative Carotid Bruits Chest wall/Lungs: Air entry diminished in bilateral lung bases. Expiratory phase prolonged. No crepitation/rhonchi Cardiovascular: Regular rate, Regular Rhythm, Normal S1, Normal S2, No M/G/R Abdomen no scrotal edema.: Bowel Sounds Present, Soft, Non Tender, Non-Distended : No dysuria. No renal angle tenderness. No suprapubic tenderness. Extremities: 2+ thigh-high edema, Capillary Refill Less than 3 Seconds Skin: No rashes, No breakdown Musculoskeletal: No Tenderness to Palpation of Joints or Extremities. ROM restricted. Neurological: Cranial nerves II-XII grossly intact, DTR 2+/4. No acute focal neurological deficit. Psych/Mental Status: Flat affect Weight / BMI Weight Weight: 266 lb 5.094 oz Body Mass Index (BMI) 37.1 ABG / Lab / Microbiology Data 06/22/23 06:38 06/22/23 06:38 Laboratory: Laboratory Results - last 24 hr 06/21/23 12:07: POC Glucose 330 H 06/21/23 16:34: POC Glucose 217 H 06/21/23 22:06: POC Glucose 201 H 06/22/23 06:38: WBC 7.0, RBC 3.67 L, Hgb 10.3 L, Hct 33.1 L, MCV 90.2, MCH 28.1, MCHC 31.1 L, RDW Std Deviation 45.5 H, RDW Coeff of Alisson 13.8, Plt Count 286, MPV 10.5, Immature Gran % (Auto) 0.300, Neut % (Auto) 67.6, Lymph % (Auto) 13.4 L, Kerr % (Auto) 14.4 H, Eos % (Auto) 3.7, Baso % (Auto) 0.6, Absolute Neuts (auto) 4.7, Absolute Lymphs (auto) 0.93, Nucleated RBC % 0 06/22/23 08:27: POC Glucose 150 H D/C Instructions Discharge Diet: Low fat / Low cholesterol, 1800 Calorie Control Diet and 6 Cup Fluid Restriction Weight Bearing Status: Weight bearing as tolerated Call your doctor if you observe: Fever of 101 or Higher, Coldness, Increased Pain, Numbness or Tingling, Change in Color, Inability to urinate, Inability to have a bowel movement, Shortness of breath, Dizziness, Fainting spells, Swelling in the ankles, Chest pain, Prolonged hiccupping, Increased palpitations (irregular heartbeat) and Calf discomfort When: IN 2 WEEKS Meaningful Use Info Meaningful Use Meaningful Use Diagnoses (Choose all that apply): CHF CHF REBECCA/ARB ordered at discharge?: No Reason REBECCA/ARB not ordered?: Worsening renal dysfunctn and Worsening renal function Documented LVEF (%): 60 Ischemic Stroke Statin Dosing Therapy Reference: STATIN DOSE THERAPY REFERENCE: * Patients > 75 years receive moderate or high dose statin therapy. * Patients 75 years or YOUNGER should receive HIGH intensity statin dose unless contraindicated. You will be required to document reason for non-treatment if statin daily dose does not meet guidelines. HIGH DOSE STATIN THERAPY DAILY Atorvastatin > than or = to 40 mg Rosuvastatin > than or = to 20 mg Amlodipine + Atorvastatin > than or = to 2.5/40 mg Ezetimibe + Simvastatin 10/80 mg Simvastatin 80mg Discharge Plan Admission Admit Date/Time: 06/19/23 16:18 Primary Reason for Your Visit: CHF exacerbation Attending Provider: Ashu Oliver Primary Care Provider: Chinmay Sin Consulting Providers: Eunice Melgar Discharge Orders/Prescriptions Prescriptions: New insulin lispro [Humalog KwikPen Insulin] 100 unit/mL Insulin Pen 10 unit subcut TIDAC 30 Days Qty: 15 4RF Rx Instructions: Hold if glucose less than 130 mg/dl insulin lispro [Humalog KwikPen Insulin] 100 unit/mL Insulin Pen See Protocol subcut ACHS Qty: 0 0RF Protocol: 3. Sliding Scale Insulin Med Dosing Condition: 150-189 mg/dl = 1 unit Condition: 190-229 mg/dl = 2 units Condition: 230-269 mg/dl = 3 units Condition: 270-309 mg/dl = 4 units Condition: 310-349 mg/dl = 5 units Condition: 350-399 mg/dl = 6 units Condition: 400-449 mg/dl = 7 units Condition: Greater than 449 call physician Protocol Text: - Use for Total Daily Dose of Insulin 37-55 units - Obsese, infected, or steroid patients MEDIUM DOSING ALGORITHIM insulin glargine [Lantus Solostar U-100 Insulin] 100 unit/mL (3 mL) insulin pen 10 unit subcut DAILY 30 Days Qty: 15 4RF Rx Instructions: Hold if glucose less than 130 mg/dl (DME) pen needle, diabetic 32 gauge x 3/16 needle See Rx Instructions .Route Qty: 100 2RF Rx Instructions: As directed Continued ferrous sulfate [FeroSul] 325 mg (65 mg iron) tablet 325 mg PO DAILY Eliquis 5 mg tablet 5 mg PO BID Qty: 180 4RF levothyroxine 150 MCG tablet 150 mcg PO DAILY Patient Comments: thyroid atorvastatin 40 MG tablet 40 mg PO DAILY@1700 ipratropium-albuterol 3 ML solution for nebulization 3 ml inhalation Q4H Patient Comments: breathing acetaminophen 325 mg Tablet 650 mg PO DAILY PRN (Reason: Pain) omeprazole 20 mg capsule,delayed release(DR/EC) 20 mg PO DAILY Patient Comments: TAKE 1 CAPSULE BY MOUTH ONCE DAILY budesonide [Pulmicort] 0.5 mg/2 mL Suspension For Nebulization 0.5 mg INHALATION BID potassium chloride 10 mEq capsule, extended release 20 meq PO DAILY Patient Comments: TAKE 2 CAPSULES BY MOUTH ONCE DAILY Trulicity 4.5 mg/0.5 mL pen injector 4.5 mg subcut WE guaifenesin [Mucinex] 600 mg Tablet Extended Release 12hr 600 mg PO BID Qty: 14 0RF sotalol 80 mg tablet 80 mg PO BID (DME) FreeStyle Zayra 2 Sensor Kit See Rx Instructions .ROUTE .MEDSUPPLY Qty: 2 6RF Rx Instructions: As directed Changed furosemide 40 mg tablet 60 mg PO BID 30 Days Qty: 90 2RF Referrals / Follow Up: Ke Grace DO [Med Staff - Active Staff] - 10/03/23 1:45 pm Chinmay Sin MD [Primary Care Provider] - 06/29/23 11:20 am Tyler Ruiz MECHANICAL SPREADER OPERATOR, MECHANICAL SPREADER OPERATOR-C [Med Staff - Adv Practice Prof] - 07/10/23 10:30 am (Heart failure Appointment is with Phyllis Solis N.P.) Disposition Disposition (needs filled in before D/C Order can be placed): Home, Self Care Charges/Coding Visit Charges Inpatient E&M: 21252 Disch Hosp >30min
[2023-06-22] MEDS: Acetaminophen 325 MG Tablet 650 MG PO (10:40)
--- NOTE | 2023-06-22 11:42 | CASEMGMT ---
Patient has order for discharge. RN TALA reviewed progress with therapy, no therapy recommended. Patient maintaining on home oxygen. ANUSHA EDGAR in to inquire about outpatient, patient states he is doing better and declines therapy at discharge. Patient denied further needs or help at discharge. Patient had no further questions or concerns.
[2023-06-22 11:47] LABS: Anion Gap 5 (5-15); BUN 27 mg/dL (7-18); BUN/Creat Ratio 18.5 RATIO (10-20); Calcium,Total 8.5 mg/dL (8.5-10.1); Chloride 102 mmol/L (98-107); Creatinine, Serum 1.46 mg/dL (0.70-1.30); EST Glomerular Filtration Rate 51 mL/min (>60); Est Glom Filt Rate - Afr Amer 62 mL/min (>60); Estimated Creatinine Clearance 64.04 ml/min; Glucose 169 mg/dL (74-106); Potassium 3.9 mmol/L (3.5-5.1); Sodium Level 137 mmol/L (136-145)
[2023-06-22 11:59] LABS: Bedside Glucose 116 mg/dL (74-106)
[2023-06-22] MEDS: Ferrous Sulfate 325 MG Tablet PO (13:32)
[2023-06-22 14:27] VITALS: BP 141/65; PULSE 51; RESP 18; TEMP 2.6; TEMP 36.7
== END 2023-06-22 15:28 | disposition home or self-care (01) | DRG 291 ==
LOC: ED 17:56 → PCU 18:13
PROVIDERS: Admitting Provider Family Medicine; Emergency Provider Emergency Medicine; PCP Family Medicine; Visit Provider Internal Medicine
DX: I13.0 Hypertensive heart and chronic kidney disease with heart failure and stage 1 through stage 4 chronic kidney disease, or unspecified chronic kidney disease (principal); I50.33 Acute on chronic diastolic (congestive) heart failure; J96.11 Chronic respiratory failure with hypoxia; J98.11 Atelectasis; Z93.0 Tracheostomy status; E11.22 Type 2 diabetes mellitus with diabetic chronic kidney disease; D50.9 Iron deficiency anemia, unspecified; E03.9 Hypothyroidism, unspecified; J43.9 Emphysema, unspecified; N18.31 Chronic kidney disease, stage 3a; E11.42 Type 2 diabetes mellitus with diabetic polyneuropathy; E11.65 Type 2 diabetes mellitus with hyperglycemia; F32.A Depression, unspecified; K21.9 Gastro-esophageal reflux disease without esophagitis; R00.1 Bradycardia, unspecified; E78.5 Hyperlipidemia, unspecified; J30.9 Allergic rhinitis, unspecified; I25.10 Atherosclerotic heart disease of native coronary artery without angina pectoris; E66.9 Obesity, unspecified; G89.4 Chronic pain syndrome; Z79.01 Long term (current) use of anticoagulants; Z90.02 Acquired absence of larynx; Z82.3 Family history of stroke; Z79.82 Long term (current) use of aspirin; Z68.37 Body mass index [BMI] 37.0-37.9, adult; Z87.891 Personal history of nicotine dependence; N40.0 Benign prostatic hyperplasia without lower urinary tract symptoms; Z95.1 Presence of aortocoronary bypass graft
CPT/HCPCS: 31720; 36415; 71046; 80048; 80053; 80061; 82962; 83036; 83735; 83880; 84443; 84484; 85025; 93005; 93306; 94640; 94760; 97161; 97166; 97802; 99284; Q9957; A4216; C8929; J1940

== ENCOUNTER 2023-07-23 21:21 | Emergency (ER) | payer MEDICARE, SELFPAY ==
[2023-07-23 21:22] VITALS: BP 178/68; PULSE 56; RESP 18; TEMP 36.6; O2SAT 94; BMI 38.8
[2023-07-23 22:14] VITALS: RESP 26; O2SAT 94
--- NOTE | 2023-07-23 22:14 | EKG12_ITS ---
Test Reason : Blood Pressure : / mmHG Vent. Rate : 053 BPM Atrial Rate : 053 BPM P-R Int : 198 ms QRS Dur : 094 ms QT Int : 476 ms P-R-T Axes : 012 034 095 degrees QTc Int : 446 ms Sinus bradycardia Nonspecific T wave abnormality Abnormal ECG Confirmed by BALTAZAR CHENG, ALEXANDER ([id number]), medical editor ERON FUENTES ([id number]) on 07/24/2023 11:31:55 AM Referred By: Confirmed By:ALEXANDER LEDESMA MD
--- NOTE | 2023-07-23 22:15 | RAD_ITS ---
STUDY: X-RAY CHEST REASON FOR EXAM: Male, 68 years old. cough TECHNIQUE: Single AP portable view of the chest. COMPARISON: 09/13/2022, 11/13/2022, 06/19/2023. FINDINGS: Tracheostomy tube terminates approximately 11.3 cm above the ingris. Hyperexpansion of the right lung. On the left, there is blunting of the left costophrenic angle improved since prior exam and most consistent with some mild residual effusion and/or pleural parenchymal scarring. Patchy and streaky pulmonary densities of the mid and lower left lung also improved and may represent some residual scarring or mild atelectasis or infiltrate. There is mild cardiac enlargement. Normal mediastinum and laura. Normal visualized pulmonary arteries. Normal visualized aortic arch and descending thoracic aorta. Normal visualized thoracic spine. Normal visualized ribs, clavicles, and shoulders. There is no demonstrated abnormality of the visualized soft tissue structures of the upper abdomen. RAD/Chest 1 View (Portable) IMPRESSION: Improving appearance of complex densities in the left mid and lower hemithorax. CT scan should be considered for better evaluation. Electronically Signed: James Pulido MD at 22:42 EDT ,
[2023-07-23 22:24] LABS: Absolute Neutrophil Count 4.6 X10^3/uL (2.0-7.7); Basophil# 0.04 X10^3/uL; Basophil% 0.6 % (0-1); Eosinophil# 0.06 X10^3/uL; Eosinophils% 0.9 % (0-5); Hematocrit 32.6 % (40-54); Hemoglobin 10.5 g/dL (13.0-16.5); Lymphocyte % 15.3 % (19-41); Mean Corp Hgb Conc 32.2 g/dL (32-36); Mean Corpuscular Hgb 28.9 pg (27.0-32.0); Mean Corpuscular Volume 89.8 fL (80-94); Mean Platelet Vol. 11.2 fl (6.2-12.0); Monocyte# 0.79 X10^3/uL; Monocyte% 12.1 % (0-10); NRBC Flagged by Analyzer 0 % (0-5); Neutrophil # 4.63 X10^3/uL (2.7-7.7); Neutrophil % 70.8 % (47-70); Platelet Count 261 K/mm3 (150-450); RBC Distribution Width CV 12.9 % (11.6-14.6); RBC Distribution Width SD 42.1 fl (35.1-43.9); Red Blood Count 3.63 M/mm3 (4.6-6.2); White Blood Count 6.5 K/mm3 (4.4-11.0)
[2023-07-23 22:47] LABS: BNP,B-Type NATRIURETIC PEPTIDE 535.3 pg/mL (0-100)
--- NOTE | 2023-07-23 23:00 | CT_ITS ---
INDICATION: Heart failure and abnormal CXR EXAMINATION: CT CHEST WITHOUT IV CONTRAST TECHNIQUE: Helically acquired images were obtained of the chest. A radiation dose optimization technique was used for this scan. IV Contrast dosage and agent: None. COMPARISON: CT chest dated September 02, 2020 and chest radiograph dated July 23, 2023. FINDINGS: Tracheostomy tube is in appropriate position. LUNGS, PLEURA AND LARGE AIRWAYS: There are nodular areas in the left lower lobe measuring approximately 2.5 cm in greatest dimension. There are some curvilinear airspace opacities in left lower lobe as well that are contiguous with abnormal nodular areas. These findings may represent some unusual fibrotic changes. Neoplastic process is not excluded. No pleural effusion or thickening. No pneumothorax. THYROID: Thyroid is not visualized. HEART AND PERICARDIUM: Heart size is normal. No pericardial effusion. CORONARY ARTERIES: Coronary artery calcification is seen. VESSELS: Thoracic aorta is not dilated. MEDIASTINUM AND MARCOS: No mediastinal or hilar adenopathy. Esophagus is unremarkable. No hiatal hernia. UPPER ABDOMEN: There appears to be a right-sided retroperitoneal mass in the suprarenal region measuring approximately 5.9 x 3.5 x 5.4 cm in size. This is new since the previous study. There is nonspecific heterogeneous increased attenuation in the left suprarenal region that may be associated with a left adrenal mass with fatty components measuring 9.2 x 7.9 x 6.8 cm in size. BONES: No suspicious lytic or blastic abnormality. There are multilevel degenerative changes of the thoracic spine. CT/Chest without Contrast IMPRESSION: 1. Nonspecific nodular and curvilinear opacities in left lower lobe may be secondary to chronic infectious or inflammatory process. Neoplastic process is not excluded. 2. Large right adrenal mass. 3. Questionable lipomatous left adrenal mass. Electronically Signed: Shwetha Vila MD at 1:31 EDT ,
[2023-07-23 23:06] LABS: Anion Gap 5 (5-15); BUN 27 mg/dL (7-18); BUN/Creat Ratio 20.5 RATIO (10-20); Calcium,Total 8.4 mg/dL (8.5-10.1); Chloride 102 mmol/L (98-107); Creatinine, Serum 1.32 mg/dL (0.70-1.30); EST Glomerular Filtration Rate 57 mL/min (>60); Est Glom Filt Rate - Afr Amer 69 mL/min (>60); Estimated Creatinine Clearance 72.51 ml/min; Glucose 205 mg/dL (74-106); Potassium 4.6 mmol/L (3.5-5.1); Sodium Level 136 mmol/L (136-145)
[2023-07-23 23:22] VITALS: BP 190/131; PULSE 51; RESP 26; O2SAT 93
[2023-07-23] MEDS: Furosemide 40 MG/4 ML Vial IV (23:26)
[2023-07-24 01:00] VITALS: BP 188/74; PULSE 80; RESP 16; TEMP 36.5; O2SAT 93
--- NOTE | 2023-07-24 01:59 | EX.ED.DYSGE1 ---
HPI History of Present Illness Chief Complaint: Shortness of Breath Informant: patient and spouse/S.O. Narrative Narrative: Patient is a 68-year-old male with past medical history of chronic kidney disease congestive heart failure atrial fibrillation and COPD. He states that he has been feeling increased shortness of breath and felt like his legs are more swollen than his baseline. He reports has been taking his medication as directed and he denies any known sick contacts. However with concern that he may be need having the symptoms secondary to fluid overload he presents for evaluation [facility] Medical History Kidney disease COPD (chronic obstructive pulmonary disease) Atrial fibrillation BPH (benign prostatic hyperplasia) Anxiety and depression Acute exacerbation of CHF (congestive heart failure) Stage 3a chronic kidney disease (CKD) Atrial fibrillation Obesity Tracheostomy in place Anticoagulant long-term use Chronic a-fib Recurrent left pleural effusion Chronic pain (HFpEF) heart failure with preserved ejection fraction Wears glasses Walker as ambulation aid Ambulates with cane Injury of back Migraine headache Gastric reflux Former smoker On home oxygen therapy Emphysema, unspecified Obesity Chronic renal failure, stage 3 (moderate) Laryngeal cancer Gastroenteritis Diabetes mellitus, type II Malignant neoplasm of head, neck and face History of colon polyps Gout Hyperlipidemia Hiatal hernia Esophageal dysmotility Diverticulosis of colon (without mention of hemorrhage) Benign neoplasm of colon Atherosclerosis of coronary artery of crow heart without angina pectoris Essential hypertension Hypothyroidism COPD (chronic obstructive pulmonary disease) Home Medications ?Medication ?Instructions ?Recorded ?Last Taken ?Type levothyroxine 150 mcg tablet 150 mcg PO DAILY hypothyroidism 06/04/14 11/13/22 History atorvastatin 40 mg tablet 40 mg PO DAILY@1700 cholesterol 04/12/17 11/12/22 History ipratropium 0.5 mg-albuterol 3 mg 3 ml inhalation Q4H sob 04/12/17 11/13/22 History (2.5 mg base)/3 mL nebulization soln flash glucose sensor (FreeStyle #2 ea 05/17/21 Unknown Rx Zayra 2 Sensor kit) acetaminophen 325 mg tablet 650 mg PO DAILY PRN Pain 12/06/21 11/13/22 History budesonide 0.5 mg/2 mL suspension 0.5 mg inhalation BID sob 12/06/21 11/10/22 History for nebulization (Pulmicort) omeprazole 20 mg capsule,delayed 20 mg PO DAILY GERD 12/06/21 11/12/22 History release ferrous sulfate 325 mg (65 mg 325 mg PO DAILY iron 08/29/22 11/13/22 History iron) tablet (FeroSul) dulaglutide 4.5 mg/0.5 mL 4.5 mg subcut WE DIABETES 11/13/22 11/08/22 History subcutaneous pen injector (Trulicity) potassium chloride 10 mEq 20 meq PO DAILY mineral 11/13/22 11/13/22 History capsule,extended release guaifenesin 600 mg tablet, 600 mg PO BID #14 tabs 11/17/22 Unknown Rx extended release 12 hr (Mucinex) apixaban 5 mg tablet (Eliquis) 5 mg PO BID blood thinner #180 tabs 03/02/23 Unknown Rx furosemide 40 mg tablet 60 mg (1.5 x 40 mg) PO BID EDEMA 1 06/22/23 Unknown Rx month #90 tabs insulin glargine 100 unit/mL (3 10 unit (0.1 mL) subcut DAILY 1 06/22/23 Unknown Rx mL) subcutaneous pen (Lantus month #15 mL Solostar U-100 Insulin) insulin lispro 100 unit/mL 10 unit (0.1 mL) subcut TIDAC 1 06/22/23 Unknown Rx subcutaneous pen (Humalog KwikPen month #15 mL (U-100) Insulin) insulin lispro 100 unit/mL See Protocol subcut ACHS #0 mL 06/22/23 Unknown Rx subcutaneous pen (Humalog KwikPen (U-100) Insulin) pen needle, diabetic 32 gauge x #100 ea 06/22/23 Unknown Rx 3/16 amlodipine 5 mg tablet 5 mg PO DAILY #30 tabs 07/26/23 Unknown Rx sotalol 80 mg tablet 80 mg PO BID heart #180 tabs 07/26/23 Unknown Rx Allergy/AdvReac Type Severity Reaction Status Date / Time oxycodone (From Percocet) AdvReac Intermediate headache Verified 07/26/23 09:13 Family History Mother Diabetes Hypertension Kidney disease Heart failure Father CVA (cerebral vascular accident) Hypertension Heart disease ischemic Brother Diabetes Surgical History History of thyroidectomy History of cardiac catheterization Hx of colonoscopy History of thyroidectomy History of exploratory laparotomy Presence of tracheostomy History of laryngectomy (2007) Social History household members: spouse housing: house Smoking Status: Former smoker Smokeless tobacco user: snuff how long ago did patient quit smokin years ago alcohol intake: never substance use type: does not use caffeine: Yes what type of physical activity do you participate in: none frequency: does not exercise ROS ROS ED Constitutional Constitutional ED: Denies chills or fever(s) ENT ENT ED: Denies sore throat Cardiovascular Cardiovascular: Reports orthopnea; Denies chest pain Respiratory/Chest Respiratory/Chest: Reports cough, dyspnea and orthopnea Gastrointestinal Gastrointestinal: Denies abdominal pain, diarrhea, nausea or vomiting Genitourinary Genitourinary ED: Denies dysuria Musculoskeletal Musculoskeletal: Reports other Details: Positive leg swelling ; Denies myalgias Integumentary Denies rash Neurologic Neurologic: Denies headache(s) Hematologic/Lymphatic Hematologic/Lymphatic: Reports easy bleeding and easy bruising EXAM Physical Exam Const Vital Signs: 07/23/23 21:22 07/23/23 22:14 07/23/23 22:14 Temperature 97.8 F Temperature Source Temporal Pulse Rate 56 L Respiratory Rate 18 26 H Respiratory Effort Respiratory Depth Respiratory Pattern Blood Pressure 178/68 H Blood Pressure Mean 104 Pulse Ox 94 94 Oxygen Delivery Method Room Air Room Air 07/23/23 23:22 07/23/23 23:37 07/24/23 01:00 Temperature 97.7 F L Temperature Source Temporal Pulse Rate 51 L 80 Respiratory Rate 26 H 16 Respiratory Effort Short of Breath Respiratory Depth Shallow Respiratory Pattern Tachypnea Blood Pressure 190/131 H 188/74 H Blood Pressure Mean 150 112 Pulse Ox 93 93 Oxygen Delivery Method Room Air Room Air Positive well nourished, well developed and obese General Appearance ED: well developed and pallor Nutritional Appearance: obese HEENT HEENT Narrative: No tongue or lip swelling no oral lesions no airway edema or compromise Eyes PERRL and EOMs intact bilaterally General Eye ED: Negative for pale conjunctiva or scleral icterus Neck supple and no JVD Chest Wall palpation of chest normal Resp normal respiratory effort Resp Narrative: Breath sounds are diminished throughout with crackles noted in the bilateral lower lobes however no nasal flaring retractions tachypnea or accessory muscle use Cardio Rate: other Other Details: Heart has a bradycardic rate with regular rhythm GI normal to inspection, nondistended, normoactive bowel sounds, non-tender, non-distended and no masses GI Narrative: No pulsatile mass or fluid wave noted Auscultation: normoactive bowel sounds Palpation: soft Extremity Extremity Narrative: +3 pitting edema to the bilateral lower extremities that is equal and symmetric Neuro oriented x3 and CN's II-XII intact bilaterally Sensorium / Orientation: alert Psych mental status grossly normal Skin no rashes or lesions noted General Skin Exam: pallor; Negative for jaundice MDM MDM MDM Narrative Medical decision making narrative: Patient arrived to ER hypertensive otherwise in no acute respiratory distress satting in the mid 90s on room air. He had concerned that he may be developing increased shortness of breath secondary to fluid overload or potential infection. Differential diagnosis is for congestive heart failure exacerbation versus COPD exacerbation versus pneumonia versus pneumothorax versus acute blood loss anemia versus acute on chronic kidney injury versus electrolyte abnormality. Basic blood work was obtained and revealed no clinically significant findings. His proBNP is elevated at 535 but this is down from his previous value. CT of the chest revealed pleural effusions but these have improved from the previous image. These findings correlate with the fact his pulse ox is normal on room air and he has no signs of respiratory distress. Therefore this time as he is not in respiratory distress or requiring supplemental oxygen and workup confirms that the previous pleural effusions are resolving and he does not have signs of secondary infection and my concern for PE is extremely low as he is on Eliquis with no chest discomfort I feel safe for discharge home. The patient and his spouse were informed of the incidental findings of the adrenal lesions which will need further workup on an outpatient basis History & Record Review Discussion w/independent historian: Patient and Significant other Lab Data Attestation: I reviewed the patient's lab results. Labs: Laboratory Results - last 24 hr 07/23/23 22:00 WBC 6.5 RBC 3.63 L Hgb 10.5 L Hct 32.6 L MCV 89.8 MCH 28.9 MCHC 32.2 RDW Std Deviation 42.1 RDW Coeff of Alisson 12.9 Plt Count 261 MPV 11.2 Immature Gran % (Auto) 0.300 Neut % (Auto) 70.8 H Lymph % (Auto) 15.3 L Hardin % (Auto) 12.1 H Eos % (Auto) 0.9 Baso % (Auto) 0.6 Absolute Neuts (auto) 4.6 Absolute Lymphs (auto) 1.00 Nucleated RBC % 0 Sodium 136 Potassium 4.6 Chloride 102 Carbon Dioxide 29.0 Anion Gap 5 BUN 27 H Creatinine 1.32 H Estim Creat Clear Calc 72.51 Est GFR (MDRD) Af Amer 69 Est GFR (MDRD) Non-Af 57 L BUN/Creatinine Ratio 20.5 H Glucose 205 H Calcium 8.4 L B-Natriuretic Peptide 535.3 H Radiography Diagnostic Testing: Clinical Impression(s) from Imaging Studies Chest X-Ray 07/23/23 22:15 IMPRESSION: Improving appearance of complex densities in the left mid and lower hemithorax. CT scan should be considered for better evaluation. Electronically Signed: James Pulido MD at 22:42 EDT , Chest CT 07/23/23 23:00 IMPRESSION: 1. Nonspecific nodular and curvilinear opacities in left lower lobe may be secondary to chronic infectious or inflammatory process. Neoplastic process is not excluded. 2. Large right adrenal mass. 3. Questionable lipomatous left adrenal mass. Electronically Signed: Shwetha Vila MD at 1:31 EDT , Chest x-ray as interpreted by the emergency medicine physician reveals bilateral pleural effusions slightly improved compared to previous x-ray Discharge Plan Triage Chief Complaint: Shortness of Breath ED Provider: Alvarez Grey Dx/Rx/DC Orders Clinical Impression: Congestive heart failure, Hypertension, Anticoagulant long-term use, Hypothyroidism, Atrial fibrillation Instructions: ED Heart Failure, Congestive (CHF) Prescriptions: No Action ferrous sulfate [FeroSul] 325 mg (65 mg iron) tablet 325 mg PO DAILY Eliquis 5 mg tablet 5 mg PO BID Qty: 180 4RF sotalol 80 mg tablet 80 mg PO BID Qty: 180 3RF amlodipine 5 mg tablet 5 mg PO DAILY Qty: 30 11RF levothyroxine 150 MCG tablet 150 mcg PO DAILY Patient Comments: thyroid atorvastatin 40 MG tablet 40 mg PO DAILY@1700 ipratropium-albuterol 3 ML solution for nebulization 3 ml inhalation Q4H Patient Comments: breathing acetaminophen 325 mg Tablet 650 mg PO DAILY PRN (Reason: Pain) omeprazole 20 mg capsule,delayed release(DR/EC) 20 mg PO DAILY Patient Comments: TAKE 1 CAPSULE BY MOUTH ONCE DAILY budesonide [Pulmicort] 0.5 mg/2 mL Suspension For Nebulization 0.5 mg INHALATION BID potassium chloride 10 mEq capsule, extended release 20 meq PO DAILY Patient Comments: TAKE 2 CAPSULES BY MOUTH ONCE DAILY Trulicity 4.5 mg/0.5 mL pen injector 4.5 mg subcut WE guaifenesin [Mucinex] 600 mg Tablet Extended Release 12hr 600 mg PO BID Qty: 14 0RF insulin lispro [Humalog KwikPen Insulin] 100 unit/mL Insulin Pen 10 unit subcut TIDAC 30 Days Qty: 15 4RF Rx Instructions: Hold if glucose less than 130 mg/dl insulin lispro [Humalog KwikPen Insulin] 100 unit/mL Insulin Pen See Protocol subcut ACHS Qty: 0 0RF Protocol: 3. Sliding Scale Insulin Med Dosing Condition: 150-189 mg/dl = 1 unit Condition: 190-229 mg/dl = 2 units Condition: 230-269 mg/dl = 3 units Condition: 270-309 mg/dl = 4 units Condition: 310-349 mg/dl = 5 units Condition: 350-399 mg/dl = 6 units Condition: 400-449 mg/dl = 7 units Condition: Greater than 449 call physician Protocol Text: - Use for Total Daily Dose of Insulin 37-55 units - Obsese, infected, or steroid patients MEDIUM DOSING ALGORITHIM insulin glargine [Lantus Solostar U-100 Insulin] 100 unit/mL (3 mL) insulin pen 10 unit subcut DAILY 30 Days Qty: 15 4RF Rx Instructions: Hold if glucose less than 130 mg/dl furosemide 40 mg tablet 60 mg PO BID 30 Days Qty: 90 2RF (DME) pen needle, diabetic 32 gauge x 3/16 needle See Rx Instructions .Route Qty: 100 2RF Rx Instructions: As directed (DME) FreeStyle Zayra 2 Sensor Kit See Rx Instructions .ROUTE .MEDSUPPLY Qty: 2 6RF Rx Instructions: As directed Primary Care Provider: Chinmay Sin Referrals: Chinmay Sin MD [Primary Care Provider] - Activity Restrictions/Additional Instructions: Please continue all of your home medications as directed by your doctor and follow-up with your family doctor to discuss obtaining an outpatient adrenal CT or MRI secondary to the lesions/masses found on today's CT scan. Return to the ER should you have any further concerns Print Language: Bulgarian Disposition Disposition: Home, Self Care Discharge Date/Time: 07/24/23 02:21
[2023-07-24 02:20] VITALS: BP 168/90; PULSE 87; RESP 18; TEMP 36.6; O2SAT 94
== END 2023-07-24 02:21 | disposition home or self-care (01) ==
PROVIDERS: Emergency Provider Emergency Medicine; PCP Family Medicine; Visit Provider Emergency Medicine
DX: I13.0 Hypertensive heart and chronic kidney disease with heart failure and stage 1 through stage 4 chronic kidney disease, or unspecified chronic kidney disease (principal); I50.9 Heart failure, unspecified; J44.9 Chronic obstructive pulmonary disease, unspecified; I48.91 Unspecified atrial fibrillation; N18.30 Chronic kidney disease, stage 3 unspecified; J90 Pleural effusion, not elsewhere classified; Z79.01 Long term (current) use of anticoagulants; Z87.891 Personal history of nicotine dependence; Z82.3 Family history of stroke; E27.9 Disorder of adrenal gland, unspecified; E03.9 Hypothyroidism, unspecified; E66.9 Obesity, unspecified; N40.0 Benign prostatic hyperplasia without lower urinary tract symptoms
CPT/HCPCS: 31720; 71045; 71250; 80048; 83880; 85025; 93005; 94760; 96374; 99282; A4216; J1940

== ENCOUNTER 2023-09-01 19:56 | Emergency (ER) | payer MEDICARE, SELFPAY ==
[2023-09-01 19:57] VITALS: BP 162/77; PULSE 67; RESP 15; TEMP 36.8; O2SAT 96
[2023-09-01 20:05] VITALS: BMI 35.4
--- NOTE | 2023-09-01 20:12 | EDS_ITS ---
HPI <ANN-MARIE Bernstein - Last Filed: 09/01/23 21:30> History of Present Illness Chief Complaint: Edema Narrative Narrative: Patient is 68-year-old male with history of atrial fibrillation on Eliquis, respiratory failure, history of throat cancer with a trach, hyperlipidemia, diabetes who presents to the emergency department with left leg pain and swelling. 5 days ago, the patient slipped, falling on his left knee and leg. Patient has been busy walking, patient now has significant swelling to the left leg with some pain. He states the pain is getting worse and he is here for evaluation. He has not missed any Eliquis doses. [facility] <ANN-MARIE Bernstein - Last Filed: 09/01/23 21:30> [facility] Medical History Kidney disease COPD (chronic obstructive pulmonary disease) Atrial fibrillation BPH (benign prostatic hyperplasia) Anxiety and depression Acute exacerbation of CHF (congestive heart failure) Stage 3a chronic kidney disease (CKD) Atrial fibrillation Obesity Tracheostomy in place Anticoagulant long-term use Chronic a-fib Recurrent left pleural effusion Chronic pain (HFpEF) heart failure with preserved ejection fraction Wears glasses Walker as ambulation aid Ambulates with cane Injury of back Migraine headache Gastric reflux Former smoker On home oxygen therapy Emphysema, unspecified Obesity Chronic renal failure, stage 3 (moderate) Laryngeal cancer Gastroenteritis Diabetes mellitus, type II Malignant neoplasm of head, neck and face History of colon polyps Gout Hyperlipidemia Hiatal hernia Esophageal dysmotility Diverticulosis of colon (without mention of hemorrhage) Benign neoplasm of colon Atherosclerosis of coronary artery of [place] heart without angina pectoris Essential hypertension Hypothyroidism COPD (chronic obstructive pulmonary disease) Home Medications ?Medication ?Instructions ?Recorded ?Last Taken ?Type levothyroxine 150 mcg tablet 150 mcg PO DAILY hypothyroidism 06/04/14 11/13/22 History atorvastatin 40 mg tablet 40 mg PO DAILY@1700 cholesterol 04/12/17 11/12/22 History ipratropium 0.5 mg-albuterol 3 mg 3 ml inhalation Q4H sob 04/12/17 11/13/22 History (2.5 mg base)/3 mL nebulization soln flash glucose sensor (FreeStyle #2 ea 05/17/21 Unknown Rx Zayra 2 Sensor kit) acetaminophen 325 mg tablet 650 mg PO DAILY PRN Pain 12/06/21 11/13/22 History budesonide 0.5 mg/2 mL suspension 0.5 mg inhalation BID sob 12/06/21 11/10/22 History for nebulization (Pulmicort) ferrous sulfate 325 mg (65 mg 325 mg PO DAILY iron 08/29/22 11/13/22 History iron) tablet (FeroSul) potassium chloride 10 mEq 20 meq PO DAILY mineral 11/13/22 11/13/22 History capsule,extended release guaifenesin 600 mg tablet, 600 mg PO BID #14 tabs 11/17/22 Unknown Rx extended release 12 hr (Mucinex) apixaban 5 mg tablet (Eliquis) 5 mg PO BID blood thinner #180 tabs 03/02/23 Unknown Rx furosemide 40 mg tablet 60 mg (1.5 x 40 mg) PO BID EDEMA 1 06/22/23 Unknown Rx month #90 tabs pen needle, diabetic 32 gauge x #100 ea 06/22/23 Unknown Rx 3/16 amlodipine 5 mg tablet 5 mg PO DAILY #30 tabs 07/26/23 Unknown Rx semaglutide 0.25 mg or 0.5 mg (2 0.25 mg subcut QWEEK 09/01/23 Unknown History mg/3 mL) subcutaneous pen injector (Ozempic) tramadol 50 mg tablet 50 mg PO Q8H PRN pain #10 tabs 09/01/23 Unknown Rx Allergy/AdvReac Type Severity Reaction Status Date / Time oxycodone (From Percocet) AdvReac Intermediate headache Verified 09/01/23 20:00 Family History Mother Diabetes Hypertension Kidney disease Heart failure Father CVA (cerebral vascular accident) Hypertension Heart disease ischemic Brother Diabetes Surgical History History of thyroidectomy History of cardiac catheterization Hx of colonoscopy History of thyroidectomy History of exploratory laparotomy Presence of tracheostomy History of laryngectomy (2007) Social History household members: spouse housing: house Smoking Status: Former smoker Smokeless tobacco user: snuff how long ago did patient quit smokin years ago alcohol intake: never substance use type: does not use caffeine: Yes what type of physical activity do you participate in: none frequency: does not exercise ROS <ANN-MARIE Bernstein - Last Filed: 09/01/23 21:30> ROS ED ROS Narrative Constitutional: Negative for fever, chills, weight loss, weakness Eyes: Negative for vision loss, vision change, double vision ENT: Negative for any sore throat, ear pain, congestion Cardiovascular: Negative for any chest pain, tightness, palpitations Respiratory: Negative for any cough, sputum production, hemoptysis, dyspnea, dyspnea on exertion, orthopnea Gastrointestinal: Negative for any abdominal pain, nausea, vomiting, diarrhea, constipation, blood in stool, blood in vomit : Negative for any urinary frequency, dysuria, retention, blood in urine Muscle skeletal: Negative for any neck pain, back pain. Positive for left leg pain left leg swelling Neurological: Negative for any headache, syncope, dizziness Skin: Negative for any rashes, itching, abrasions, lacerations Psychiatric: Negative for any depression, anxiety, stress, suicidal ideation, homicidal ideation Hematologic: Negative for any excessive bruising, easy bleeding EXAM <ANN-MARIE Bernstein - Last Filed: 09/01/23 21:30> Physical Exam Narrative Exam Narrative: Vital signs reviewed. HEET: Head normocephalic atraumatic, TMs clear bilaterally. Posterior pharynx is clear, moist mucous membranes. Nares clear bilaterally. Neck: Supple with no lymphadenopathy or tenderness. No signs of meningismus. Cardiac: Regular rate and rhythm no murmurs gallops or rubs, equal peripheral pulses bilaterally. Respiratory: Lungs clear to auscultation bilaterally. No chest tenderness. Abdomen: Soft, nontender, nondistended. No abdominal bruit or pulsatile masses. No hepatosplenomegaly Extremities: Patient does have swelling to the left lower extremity worse below the knee. To the proximal tibia on the lateral aspect, there is a significant hematoma. No open wounds. Neuro: Cranial nerves II through XII intact, no focal neurological deficits. Skin: Clean dry and intact with no rash, purpura, petechiae, vesicles or pustules. Backs/flank: No CVA tenderness, no midline spinal tenderness, no deformity. Psych: Normal mood and affect. No SI, HI or acute psychosis. Const Vital Signs: 09/01/23 19:57 09/01/23 20:07 09/01/23 21:00 Temperature 98.3 F 97.8 F Temperature Source Temporal Oral Pulse Rate 67 61 Respiratory Rate 15 20 H Respiratory Pattern Normal Blood Pressure 162/77 H 164/68 H Blood Pressure Mean 105 100 Pulse Ox 96 97 Oxygen Delivery Method Room Air Room Air <Dr. Robin Emerson MD - Last Filed: 09/01/23 21:28> Physical Exam Const Vital Signs: 09/01/23 19:57 09/01/23 20:07 09/01/23 21:00 Temperature 98.3 F 97.8 F Temperature Source Temporal Oral Pulse Rate 67 61 Respiratory Rate 15 20 H Respiratory Pattern Normal Blood Pressure 162/77 H 164/68 H Blood Pressure Mean 105 100 Pulse Ox 96 97 Oxygen Delivery Method Room Air Room Air [facility] <ANN-MARIE Bernstein - Last Filed: 09/01/23 21:30> [facility] Treatment and Re-Evaluation :: Differential diagnosis includes however is not limited to: Leg fracture, DVT, hematoma, soft tissue swelling, patella fracture Patient appears to be in no obvious respiratory distress vital signs are stable, nontoxic-appearing. Presenting to the emergency department with left lower leg pain secondary to a fall 5 days ago. Acutely this was likely hematoma however patient will receive a CT scan of the of the left lower extremity. All radiologic examinations were read, reviewed by the emergency department attending. From these reads, a plan of care will be put in place. X-rays of the knee, tibia family were unremarkable. At this time, patient be discharged home. Patient be given a tramadol, instructed to ice, and to elevate. He is happy with the plan of care, all questions answered, stable for discharge. <Dr. Robin Emerson MD - Last Filed: 09/01/23 21:28> [facility] Narrative Medical decision making narrative: I have personally performed a face to face assessment of the patient and have reviewed the MARQUEZ Note. I performed a substantive portion of the visit including all aspects of the following. My blandon findings include: History is accidental fall to left leg 5 days ago. Initially swelled at the site, proximal lateral lower leg/knee, that area decreased in swelling as he started developing swelling distal all the way down to the ankle along with some bruising. No symptoms of acute anemia. No new neurologic symptoms distally. On apixaban. No other injuries. Exam is tender mild hematoma lateral aspect distal left knee, with swelling distally that is not circumferential mostly just lateral, with soft nondistended compartments, and ecchymosis visible distally around the ankle and the plantar aspect of the foot all of which is nontender. No signs cellulitis or inf ection/abscess. Medical Decison Making 4 view x-ray series of the left tibia-fibula are normal on my interpretation without any bony injury, and 4 view x-ray series of the left knee show no acute bony abnormality on my interpretation although vascular calcifications are noted and degenerative changes of the knee joint are noted. Patient reassured, supportive care advised I believe this will eventually resolve on its own there is no evidence of active ongoing bleeding or arterial injury going on and I do not think he needs his H&H checked since he does not have symptoms of acute anemia. Warm compresses would be reasonable at this point since it has been 5 days. Other additions or changes: [None] Discharge Plan Triage Chief Complaint: Edema ED Midlevel Provider: Estevan Moon ED Provider: Robin Emerson Dx/Rx/DC Orders Clinical Impression: Hematoma, Leg pain Prescriptions: New tramadol 50 mg tablet 50 mg PO Q8H PRN (Reason: pain) Qty: 10 0RF No Action ferrous sulfate [FeroSul] 325 mg (65 mg iron) tablet 325 mg PO DAILY Eliquis 5 mg tablet 5 mg PO BID Qty: 180 4RF amlodipine 5 mg tablet 5 mg PO DAILY Qty: 30 11RF levothyroxine 150 MCG tablet 150 mcg PO DAILY Patient Comments: thyroid atorvastatin 40 MG tablet 40 mg PO DAILY@1700 ipratropium-albuterol 3 ML solution for nebulization 3 ml inhalation Q4H Patient Comments: breathing acetaminophen 325 mg Tablet 650 mg PO DAILY PRN (Reason: Pain) budesonide [Pulmicort] 0.5 mg/2 mL Suspension For Nebulization 0.5 mg INHALATION BID potassium chloride 10 mEq capsule, extended release 20 meq PO DAILY Patient Comments: TAKE 2 CAPSULES BY MOUTH ONCE DAILY guaifenesin [Mucinex] 600 mg Tablet Extended Release 12hr 600 mg PO BID Qty: 14 0RF furosemide 40 mg tablet 60 mg PO BID 30 Days Qty: 90 2RF (DME) pen needle, diabetic 32 gauge x 3/16 needle See Rx Instructions .Route Qty: 100 2RF Rx Instructions: As directed Ozempic 0.25 mg or 0.5 mg (2 mg/3 mL) pen injector 0.25 mg subcut QWEEK Rx Instructions: for 4 weeks (DME) [employer] Zayra 2 Sensor Kit See Rx Instructions .ROUTE .MEDSUPPLY Qty: 2 6RF Rx Instructions: As directed Primary Care Provider: Chinmay Sin Referrals: Chinmay Sin MD [Primary Care Provider] - Print Language: Citizen Of [place] Disposition Disposition: Home, Self Care
[2023-09-01] MEDS: traMADol 50 MG Tablet PO (20:17)
--- NOTE | 2023-09-01 20:20 | RAD_ITS ---
INDICATION: Left lower extremity pain with redness and swelling EXAMINATION/TECHNIQUE: X-RAY - LEFT XR Tibia/Fibula 2 Views 2 VIEWS COMPARISON: None. FINDINGS: SOFT TISSUES: No soft tissue swelling or gas. No radiopaque foreign body. Vascular calcifications present. BONES/JOINTS: No acute fracture. Joint spaces anatomically aligned. No sclerotic or destructive changes observed. RAD/Tibia & Fibula 2 Views IMPRESSION: No acute bony abnormality. Electronically Signed: Kevin Elias MD at 21:29 EDT ,
--- NOTE | 2023-09-01 20:20 | RAD_ITS ---
STUDY: X-RAY - LEFT KNEE REASON FOR EXAM: Male, 68 years old. swelling TECHNIQUE: 4 view(s) of the knee. COMPARISON: None. FINDINGS: Normal visualized distal femur. Normal visualized proximal tibia and fibula. Normal proximal tibiofibular articulation. There is no demonstrated fracture. Normal medial femorotibial compartment. Normal lateral femorotibial compartment. Normal patellofemoral articulation. There is no demonstrated joint effusion. There are atherosclerotic calcifications. RAD/Knee 4 or More Views IMPRESSION: Normal x-ray examination of the knee. Electronically Signed: James Pulido MD at 21:36 EDT ,
[2023-09-01 21:00] VITALS: BP 164/68; PULSE 61; RESP 20; TEMP 36.6; O2SAT 97
[2023-09-01 21:31] VITALS: BP 159/79; PULSE 68; RESP 16; TEMP 36.6; O2SAT 98
== END 2023-09-01 21:32 | disposition home or self-care (01) ==
PROVIDERS: Emergency Provider Emergency Medicine; PCP Family Medicine; Visit Provider Emergency Medicine
DX: S80.12XA Contusion of left lower leg, initial encounter (principal); I13.0 Hypertensive heart and chronic kidney disease with heart failure and stage 1 through stage 4 chronic kidney disease, or unspecified chronic kidney disease; I50.32 Chronic diastolic (congestive) heart failure; J44.9 Chronic obstructive pulmonary disease, unspecified; I48.91 Unspecified atrial fibrillation; I48.20 Chronic atrial fibrillation, unspecified; E11.22 Type 2 diabetes mellitus with diabetic chronic kidney disease; N18.31 Chronic kidney disease, stage 3a; M79.605 Pain in left leg; I25.10 Atherosclerotic heart disease of native coronary artery without angina pectoris; Z87.891 Personal history of nicotine dependence; E78.5 Hyperlipidemia, unspecified; Z85.89 Personal history of malignant neoplasm of other organs and systems; E03.9 Hypothyroidism, unspecified; W19.XXXA Unspecified fall, initial encounter
CPT/HCPCS: 73564; 73590; 99282

== ENCOUNTER 2023-10-01 17:15 | Inpatient (IN) | payer MEDICARE, SELFPAY ==
[2023-10-01] VITALS (11 sets, daily range): BP systolic 146–177; BP diastolic 63–81; PULSE 41–48; RESP 14–26; TEMP 36.5–36.6; O2SAT 92–96; BMI 36.9
--- NOTE | 2023-10-01 17:27 | EKG12_ITS ---
Test Reason : LOW HR Blood Pressure : / mmHG Vent. Rate : 043 BPM Atrial Rate : 043 BPM P-R Int : 198 ms QRS Dur : 098 ms QT Int : 506 ms P-R-T Axes : 044 024 090 degrees QTc Int : 427 ms Marked sinus bradycardia Abnormal ECG Confirmed by Denis Grant ([id number]), editorial cartoonist DARRELL PÉREZ ([id number]) on 10/03/2023 8:20:05 AM Referred By: ES/TL Confirmed By:Denis Grant
--- NOTE | 2023-10-01 17:42 | RAD_ITS ---
EXAM: XR CHEST, 1 VIEW CLINICAL INDICATION: chest pain TECHNIQUE: Frontal view of the chest. COMPARISON: 07/23/2023 FINDINGS: LUNGS AND PLEURAL SPACES: There is a small left-sided pleural effusion. There is mild left basilar airspace disease. No pneumothorax. HEART: Unremarkable. Cardiac silhouette not enlarged. MEDIASTINUM: Central airways and mediastinal contour are unremarkable. BONES/JOINTS: Unremarkable. No acute fracture. SOFT TISSUES: Unremarkable. RAD/Chest 1 View (Portable) IMPRESSION: Left-sided effusion with minimal left basilar airspace disease. There has been no significant change from the reference exam. Electronically Signed: Aniceto Newberry MD at 18:14 EDT ,
[2023-10-01 18:11] LABS: Basophil# 0.03 X10^3/uL; Basophil% 0.3 % (0-1); Eosinophil# 0.08 X10^3/uL; Eosinophils% 0.8 % (0-5); Hemoglobin 9.6 g/dL (13.0-16.5); Lymphocyte % 8.3 % (19-41); Mean Corpuscular Hgb 28.8 pg (27.0-32.0); Mean Corpuscular Volume 90.1 fL (80-94); Mean Platelet Vol. 10.7 fl (6.2-12.0); Monocyte# 0.61 X10^3/uL; Monocyte% 6.4 % (0-10); NRBC Flagged by Analyzer 0 % (0-5); Neutrophil # 8.03 X10^3/uL (2.7-7.7); Neutrophil % 83.7 % (47-70); Platelet Count 276 K/mm3 (150-450); RBC Distribution Width CV 13.2 % (11.6-14.6); RBC Distribution Width SD 42.9 fl (35.1-43.9); Red Blood Count 3.33 M/mm3 (4.6-6.2); White Blood Count 9.6 K/mm3 (4.4-11.0)
[2023-10-01 18:31] LABS: Anion Gap 5 (5-15); BUN 26 mg/dL (7-18); BUN/Creat Ratio 17.6 RATIO (10-20); Chloride 103 mmol/L (98-107); Creatinine, Serum 1.48 mg/dL (0.70-1.30); EST Glomerular Filtration Rate 50 mL/min (>60); Est Glom Filt Rate - Afr Amer 61 mL/min (>60); Glucose 369 mg/dL (74-106); Sodium Level 137 mmol/L (136-145)
[2023-10-01] MEDS: Ipratropium/Albuterol Sulfate 3 ML AMPUL.NEB INHALATION ×2 (18:41→23:26)
[2023-10-01] MEDS: Doxycycline 100 MG CAPSULE PO (18:58)
[2023-10-01] MEDS: Insulin Lispro 100 UNIT/ML INSULN.PEN SC (18:58)
[2023-10-01 20:05] LABS: Bedside Glucose 288 mg/dL (74-106)
--- NOTE | 2023-10-01 20:12 | ED.VIS.DYS ---
HPI History of Present Illness Chief Complaint: Shortness of Breath Informant: patient and spouse/S.O. Narrative Narrative: Presents here with spouse evaluation pain under shoulder blades left greater than right along with dyspnea cough and wheeze. History of COPD. History laryngeal cancer has tracheostomy tube for years wears oxygen 3 L at night only. Diabetes history. History of paroxysmal A-fib, he is on sotalol, and Eliquis. No missed doses. Noticed bradycardia on arrival he states typical heart rate in the 70s. Occasional lightheaded symptoms. He ambulates with a cane. [facility] Medical History Kidney disease COPD (chronic obstructive pulmonary disease) Atrial fibrillation BPH (benign prostatic hyperplasia) Anxiety and depression Acute exacerbation of CHF (congestive heart failure) Stage 3a chronic kidney disease (CKD) Atrial fibrillation Obesity Tracheostomy in place Anticoagulant long-term use Chronic a-fib Recurrent left pleural effusion Chronic pain (HFpEF) heart failure with preserved ejection fraction Wears glasses Walker as ambulation aid Ambulates with cane Injury of back Migraine headache Gastric reflux Former smoker On home oxygen therapy Emphysema, unspecified Obesity Chronic renal failure, stage 3 (moderate) Laryngeal cancer Gastroenteritis Diabetes mellitus, type II Malignant neoplasm of head, neck and face History of colon polyps Gout Hyperlipidemia Hiatal hernia Esophageal dysmotility Diverticulosis of colon (without mention of hemorrhage) Benign neoplasm of colon Atherosclerosis of coronary artery of [place] heart without angina pectoris Essential hypertension Hypothyroidism COPD (chronic obstructive pulmonary disease) Home Medications ?Medication ?Instructions ?Recorded ?Last Taken ?Type levothyroxine 150 mcg tablet 150 mcg PO DAILY hypothyroidism 06/04/14 11/13/22 History atorvastatin 40 mg tablet 40 mg PO DAILY@1700 cholesterol 04/12/17 11/12/22 History ipratropium 0.5 mg-albuterol 3 mg 3 ml inhalation Q4H sob 04/12/17 11/13/22 History (2.5 mg base)/3 mL nebulization soln flash glucose sensor (FreeStyle #2 ea 05/17/21 Unknown Rx Zayra 2 Sensor kit) acetaminophen 325 mg tablet 650 mg PO DAILY PRN Pain 12/06/21 11/13/22 History budesonide 0.5 mg/2 mL suspension 0.5 mg inhalation BID sob 12/06/21 11/10/22 History for nebulization (Pulmicort) ferrous sulfate 325 mg (65 mg 325 mg PO DAILY iron 08/29/22 11/13/22 History iron) tablet (FeroSul) potassium chloride 10 mEq 20 meq PO DAILY mineral 11/13/22 11/13/22 History capsule,extended release pen needle, diabetic 32 gauge x #100 ea 06/22/23 Unknown Rx 04/20 semaglutide 0.25 mg or 0.5 mg (2 0.25 mg subcut QWEEK 09/01/23 Unknown History mg/3 mL) subcutaneous pen injector (Ozempic) amlodipine 5 mg tablet 5 mg PO DAILY #90 tabs 09/17/23 Unknown Rx apixaban 5 mg tablet (Eliquis) 5 mg PO BID blood thinner #180 tabs 09/20/23 Unknown Rx azithromycin 250 mg tablet 250 mg PO DAILY prophyliaxis COPD 10/01/23 Unknown History buspirone 7.5 mg tablet 7.5 mg PO TID PRN PRN anxiety 10/01/23 Unknown History cyanocobalamin (vitamin B-12) 500 500 mcg PO DAILY 10/01/23 Unknown History mcg tablet empagliflozin 10 mg tablet 10 mg PO DAILY 10/01/23 Unknown History (Jardiance) furosemide 40 mg tablet 40 mg PO BID EDEMA 10/01/23 Unknown History insulin lispro 100 unit/mL 10 unit subcut TID 10/01/23 Unknown History subcutaneous pen methylprednisolone 4 mg tablets in 4 mg PO UD 10/01/23 Unknown History a dose pack omeprazole 20 mg capsule,delayed 20 mg PO DAILY 10/01/23 Unknown History release semaglutide 2 mg/dose (8 mg/3 mL) 2 mg subcut .COMPLEX diabetes 10/01/23 Unknown History subcutaneous pen injector (Ozempic) Allergy/AdvReac Type Severity Reaction Status Date / Time No Known Allergies Allergy Verified 10/01/23 22:45 Family History Mother Diabetes Hypertension Kidney disease Heart failure Father CVA (cerebral vascular accident) Hypertension Heart disease ischemic Brother Diabetes Surgical History History of thyroidectomy History of cardiac catheterization Hx of colonoscopy History of thyroidectomy History of exploratory laparotomy Presence of tracheostomy History of laryngectomy (2007) Social History household members: spouse housing: house Smoking Status: Former smoker Smokeless tobacco user: snuff how long ago did patient quit smokin years ago alcohol intake: never substance use type: does not use caffeine: Yes what type of physical activity do you participate in: none frequency: does not exercise ROS ROS ED Constitutional Constitutional ED: Denies chills, fever(s) or sweats Eyes Eyes: Denies change in vision ENT ENT ED: Denies dysphagia or sore throat Cardiovascular Cardiovascular: Denies chest pain, leg edema, palpitations or racing heartbeat Respiratory/Chest Respiratory/Chest: Reports cough and dyspnea; Denies dyspnea on exertion Gastrointestinal Gastrointestinal: Denies abdominal pain, diarrhea, nausea or vomiting Genitourinary Genitourinary ED: Denies dysuria, hematuria or urinary frequency Musculoskeletal Musculoskeletal: Reports back pain; Denies extremity pain or neck pain Integumentary Denies rash or wounds Neurologic Neurologic: Denies headache(s), paresthesias or weakness EXAM Physical Exam Const Vital Signs: 10/01/23 17:17 10/01/23 17:21 10/01/23 18:03 Temperature 97.7 F L 97.7 F L Temperature Source Temporal Temporal Pulse Rate 45 L 44 L Respiratory Rate 18 21 H Respiratory Effort Respiratory Depth Respiratory Pattern Blood Pressure 152/64 H 146/64 H Blood Pressure Mean 93 91 Pulse Ox 95 95 Oxygen Delivery Method Room Air Room Air Room Air 10/01/23 18:03 10/01/23 18:03 10/01/23 18:21 Temperature 97.7 F L Temperature Source Temporal Pulse Rate 43 L Respiratory Rate 21 H 24 H Respiratory Effort Short of Breath Respiratory Depth Shallow Respiratory Pattern Tachypnea Blood Pressure 160/64 H Blood Pressure Mean 96 Pulse Ox 94 93 Oxygen Delivery Method Room Air Room Air Room Air 10/01/23 18:42 10/01/23 19:00 10/01/23 20:00 Temperature 97.7 F L 97.7 F L Temperature Source Temporal Temporal Pulse Rate 44 L 41 L 47 L Respiratory Rate 26 H 14 20 H Respiratory Effort Respiratory Depth Respiratory Pattern Tachypnea Blood Pressure 149/81 H 169/71 H Blood Pressure Mean 103 103 Pulse Ox 96 95 Oxygen Delivery Method Room Air Room Air 08/26/24 21:00 Temperature 97.7 F L Temperature Source Temporal Pulse Rate 43 L Respiratory Rate 19 H Respiratory Effort Respiratory Depth Respiratory Pattern Blood Pressure 150/63 H Blood Pressure Mean 92 Pulse Ox 94 Oxygen Delivery Method Room Air Positive well nourished and well developed General Appearance ED: well developed and NAD HEENT Reports moist mucous membranes normocephalic and atraumatic Eyes EOMs intact bilaterally and conjunctivae normal General Eye ED: Yes normal appearance of both eyes Neck no lymphadenopathy and supple Neck Narrative: Tracheostomy orifice clean, dry, intact. General: Negative for tenderness Chest Wall Chest: Negative for tenderness Resp Resp Narrative: Coarse breath sounds. Effort and Inspection: Negative for respiratory distress Cardio regular rate, regular rhythm and no murmurs Peripheral Pulses: pulses 2+ throughout GI normal to inspection, nondistended, normoactive bowel sounds and non-tender Palpation: Negative for guarding or rebound tenderness present Back/Spine no CVA tenderness and no thoracic nor lumbar tenderness Extremity normal to inspection General Extremety ED: Negative for edema or tenderness General Extremity: Negative for edema Neuro oriented x3 and no sensory deficits noted Sensorium / Orientation: awake and alert Skin no wounds MDM MDM MDM Narrative Medical decision making narrative: Interventions / MDM: Differential diagnosis: COPD exacerbation, bradycardia Diagnosis considered but do not suspect: Pulm embolism however patient on chronic anticoagulation with no missed doses. My EKG interpretation: Sinus bradycardia rate of 43, no ST or T wave changes. No heart blocks noted. Imaging independently reviewed and interpreted by myself: 1 view chest x-ray small left pleural effusion. External documents reviewed: N/A Test considered but not ordered:N/A ED course: Patient bradycardic on arrival was 95% on room air and nontoxic. Coarse breath sounds. COPD history reported wheezing at home. No current wheezing. Aerosol treatments ordered, COPD with cough with mild sputum started on doxycycline for COPD exacerbation. Plan for steroids however lab work noted glucose of 369 normal gap. He is given 5 units of insulin. White count 9.6 hemoglobin 9.6. Reevaluation concern heart rate would dip down into the 30s and 40s typically at 70s. There is no heart block. Nursing ambulated the patient, pulse ox dipped down to 86% he was symptomatic along with lightheaded symptoms. Glucose recheck was 288. With hypoxia not typically on oxygen during the day along with his bradycardia, I will speak with hospitalist for admission. Creatinine 1.48 stable from previous. Spoke with Dr. North for admission. Re-evaluation: stable Disposition discussed with patient/family/significant other: Patient and spouse Case discussed with consulting clinician: Hospitalist This note was generated with [employer] dictation software. It may contain incorrect words, spelling, and punctuation that were not noted in checking the note before signing. Lab Data Attestation: I reviewed the patient's lab results. Labs: Laboratory Results - last 24 hr 10/01/23 10/01/23 17:55 19:47 WBC 9.6 RBC 3.33 L Hgb 9.6 L Hct 30.0 L MCV 90.1 MCH 28.8 MCHC 32.0 RDW Std Deviation 42.9 RDW Coeff of Alisson 13.2 Plt Count 276 MPV 10.7 Immature Gran % (Auto) 0.500 Neut % (Auto) 83.7 H Lymph % (Auto) 8.3 L [place] % (Auto) 6.4 Eos % (Auto) 0.8 Baso % (Auto) 0.3 Absolute Neuts (auto) 8.0 H Absolute Lymphs (auto) 0.80 L Nucleated RBC % 0 Sodium 137 Potassium 4.0 Chloride 103 Carbon Dioxide 29.0 Anion Gap 5 BUN 26 H Creatinine 1.48 H Est GFR (MDRD) Af Amer 61 Est GFR (MDRD) Non-Af 50 L BUN/Creatinine Ratio 17.6 Glucose 369 H Calcium 8.0 L Iron 38 L TIBC 217 L Iron Saturation 17.5 Ferritin 83 B-Natriuretic Peptide 602.1 H POC Glucose 288 H Radiography Diagnostic Testing: Clinical Impression(s) from Imaging Studies Chest X-Ray 10/01/23 17:42 IMPRESSION: Left-sided effusion with minimal left basilar airspace disease. There has been no significant change from the reference exam. Electronically Signed: Aniceto Newberry MD at 18:14 EDT , Discharge Plan Dx/Rx/DC Orders Clinical Impression: COPD exacerbation, Anticoagulant long-term use, Laryngeal cancer, Hypoxia, Sinus bradycardia Disposition Disposition: Acute Care Hospital [facility] Discharge Date/Time: 10/01/23 21:57
--- NOTE | 2023-10-01 20:51 | HP.PCM.HOS_ITS ---
[facility] General Date of Admission: 10/01/23 Date of Service: 10/01/23 Chief Complaint: SOB, Wheezing and Cough. [facility] Narrative ABDIEL CORTEZ, is a 68 M with a past medical history of essential hypertension, hyperlipidemia, hypothyroidism; with history of thyroidectomy, morbid obesity; with BMI of 45 this admission, DM-2; uncontrolled with hyperglycemia, history of tobacco abuse (quit ~12 year ago); with subsequent COPD, chronic hypoxic respiratory failure; on ~3-4L NC nocturnally, chronic atrial fibrillation; on Sotalol and Eliquis, chronic diastolic CHF; with preserved LVEF, history of Laryngeal cancer; s/p laryngectomy (2007) with previous tracheostomy and with no chemo or radiation given, history of recurrent pleural effusion of LLL; requiring drainage, CKD; stage IIIa, SOCRATES, history of migraine headaches, depression with anxiety, history of exploratory laparotomy, GERD; with hiatal hernia and esophageal dysmotility on daily Omeprazole, history of colonic diverticulosis, history of colon polyps, gout and OA; with chronic pain syndrome on prn Tramadol who typically ambulates with a cane who presents to [facility] ER complaining of SOB, wheezing and cough. Mr. Cortez reports his symptoms began approximately three days prior to admission with the gradual-onset of FERNANDO that progressed to SOB at rest. He also admits to pain emanating from his Left shoulder blade > Right with nonproductive cough and wheezing. He admits his symptoms are similar to his previous AE COPD. He was noted to be severely bradycardic in ~40 bpm shortly after arrival with occasional lightheadedness. In the ER he was diagnosed with AE COPD with a small Left pleural effusion on CXR complicated by Symptomatic Bradycardia thought to be secondary to an Adverse Drug Reaction to Sotalol compounded by AE of Chronic Diastolic CHF; with preserved LVEF evidenced by elevated BNP of 602.1 pg/mL present on admission with Utoyz-[id number]-Wwialyz Respiratory Insufficiency and she was then admitted to the PCU for ongoing care for a stay that is expected to extend beyond 2 midnights. [facility] Medical History (Updated 10/02/23 @ 03:[address] Himanshu Bermeo DO) Acute exacerbation of CHF (congestive heart failure) Kidney disease COPD (chronic obstructive pulmonary disease) Atrial fibrillation BPH (benign prostatic hyperplasia) Anxiety and depression Stage 3a chronic kidney disease (CKD) Atrial fibrillation Obesity Tracheostomy in place Anticoagulant long-term use Chronic a-fib Recurrent left pleural effusion Chronic pain (HFpEF) heart failure with preserved ejection fraction Wears glasses Walker as ambulation aid Ambulates with cane Injury of back Migraine headache Gastric reflux Former smoker On home oxygen therapy Emphysema, unspecified Obesity Chronic renal failure, stage 3 (moderate) Laryngeal cancer Gastroenteritis Diabetes mellitus, type II Malignant neoplasm of head, neck and face History of colon polyps Gout Hyperlipidemia Hiatal hernia Esophageal dysmotility Diverticulosis of colon (without mention of hemorrhage) Benign neoplasm of colon Atherosclerosis of coronary artery of [place] heart without angina pectoris Essential hypertension Hypothyroidism COPD (chronic obstructive pulmonary disease) Home Medications ?Medication ?Instructions ?Recorded ?Last Taken ?Type levothyroxine 150 mcg tablet 150 mcg PO DAILY hypothyroidism 06/04/14 11/13/22 History atorvastatin 40 mg tablet 40 mg PO DAILY@1700 cholesterol 04/12/17 11/12/22 History ipratropium 0.5 mg-albuterol 3 mg 3 ml inhalation Q4H sob 04/12/17 11/13/22 History (2.5 mg base)/3 mL nebulization soln flash glucose sensor (FreeStyle #2 ea 05/17/21 Unknown Rx Zayra 2 Sensor kit) acetaminophen 325 mg tablet 650 mg PO DAILY PRN Pain 12/06/21 11/13/22 History budesonide 0.5 mg/2 mL suspension 0.5 mg inhalation BID sob 12/06/21 11/10/22 History for nebulization (Pulmicort) ferrous sulfate 325 mg (65 mg 325 mg PO DAILY iron 08/29/22 11/13/22 History iron) tablet (FeroSul) potassium chloride 10 mEq 20 meq PO DAILY mineral 11/13/22 11/13/22 History capsule,extended release pen needle, diabetic 32 gauge x #100 ea 06/22/23 Unknown Rx 04/20 semaglutide 0.25 mg or 0.5 mg (2 0.25 mg subcut QWEEK 09/01/23 Unknown History mg/3 mL) subcutaneous pen injector (Ozempic) amlodipine 5 mg tablet 5 mg PO DAILY #90 tabs 09/17/23 Unknown Rx apixaban 5 mg tablet (Eliquis) 5 mg PO BID blood thinner #180 tabs 09/20/23 Unknown Rx azithromycin 250 mg tablet 250 mg PO DAILY prophyliaxis COPD 10/01/23 Unknown History buspirone 7.5 mg tablet 7.5 mg PO TID PRN PRN anxiety 10/01/23 Unknown History cyanocobalamin (vitamin B-12) 500 500 mcg PO DAILY 10/01/23 Unknown History mcg tablet empagliflozin 10 mg tablet 10 mg PO DAILY 10/01/23 Unknown History (Jardiance) furosemide 40 mg tablet 40 mg PO BID EDEMA 10/01/23 Unknown History insulin lispro 100 unit/mL 10 unit subcut TID 10/01/23 Unknown History subcutaneous pen methylprednisolone 4 mg tablets in 4 mg PO UD 10/01/23 Unknown History a dose pack omeprazole 20 mg capsule,delayed 20 mg PO DAILY 10/01/23 Unknown History release semaglutide 2 mg/dose (8 mg/3 mL) 2 mg subcut .COMPLEX diabetes 10/01/23 Unknown History subcutaneous pen injector (Ozempic) Allergy/AdvReac Type Severity Reaction Status Date / Time No Known Allergies Allergy Verified 10/01/23 22:45 Family History Mother Diabetes Hypertension Kidney disease Heart failure Father CVA (cerebral vascular accident) Hypertension Heart disease ischemic Brother Diabetes Surgical History History of thyroidectomy History of cardiac catheterization Hx of colonoscopy History of thyroidectomy History of exploratory laparotomy Presence of tracheostomy History of laryngectomy (2007) Social History household members: spouse housing: house Smoking Status: Former smoker Smokeless tobacco user: snuff how long ago did patient quit smokin years ago alcohol intake: never substance use type: does not use caffeine: Yes what type of physical activity do you participate in: none frequency: does not exercise ROS ROS Narrative Review of Systems: Constitutional: Patient denies fever, chills or weight loss. Eyes: Patient denies changes in vision or discharge from eyes. ENT: Patient denies runny nose, sore throat or ear pain. CV: Patient denies chest pain, palpitations or heart racing. Resp: Patient admits to FERNANDO that progressed to SOB at rest with worsening cough as per HPI. GI: Patient denies abdominal pain, nausea and vomiting. : Patient denies dysuria or hematuria. MSK: Patient admits to back pain. Skin: Patient denies rash, abscess or jaundice. Psych: Patient denies symptoms of uncontrolled depression or anxiety. Neuro: Patient denies headache, paresthesias or focal neurologic weakness. Allergy: Patient denies lip swelling, tongue swelling or urticaria. Hematology: Patient denies easy bleeding or easy bruisability. Endocrinology: Patient denies polyuria, polydipsia and polyphagia. 14 point ROS otherwise negative except for positives noted above. Vital Signs Vital Signs Vital Signs: 10/01/23 17:17 10/01/23 17:21 10/01/23 18:03 Temperature 97.7 F L 97.7 F L Temperature Source Temporal Temporal Pulse Rate 45 L 44 L Respiratory Rate 18 21 H Respiratory Effort Respiratory Depth Respiratory Pattern Blood Pressure 152/64 H 146/64 H Blood Pressure Mean 93 91 Pulse Ox 95 95 Oxygen Delivery Method Room Air Room Air Room Air 10/01/23 18:03 10/01/23 18:03 10/01/23 18:21 Temperature 97.7 F L Temperature Source Temporal Pulse Rate 43 L Respiratory Rate 21 H 24 H Respiratory Effort Short of Breath Respiratory Depth Shallow Respiratory Pattern Tachypnea Blood Pressure 160/64 H Blood Pressure Mean 96 Pulse Ox 94 93 Oxygen Delivery Method Room Air Room Air Room Air 10/01/23 18:42 10/01/23 19:00 10/01/23 20:00 Temperature 97.7 F L 97.7 F L Temperature Source Temporal Temporal Pulse Rate 44 L 41 L 47 L Respiratory Rate 26 H 14 20 H Respiratory Effort Respiratory Depth Respiratory Pattern Tachypnea Blood Pressure 149/81 H 169/71 H Blood Pressure Mean 103 103 Pulse Ox 96 95 Oxygen Delivery Method Room Air Room Air Physical Exam Const alert and oriented x3 Constitutional Narrative: Patient is morbidly obese and appears chronically ill. General Appearance: cooperative HEENT normocephalic, head/scalp atraumatic, hearing grossly normal bilaterally and moist oral mucous membranes Eyes PERRL and EOMs intact bilaterally Neck no lymphadenopathy and supple Resp Resp Narrative: Diminished breath sounds throughout with scattered wheezes and rhonci (Left base > Right base). Cardio Cardio Narrative: Bradycardia in the ~43 bpm range that is irregular. GI normal to inspection, nondistended, normoactive bowel sounds, soft to palpation, non-tender and non-distended GI Narrative: Morbidly obese. Extremity normal to inspection and full ROM Skin Skin Narrative: Patient has no evidence of jaundice, abscess or rash. Neuro oriented x3, CN's II-XII intact bilaterally, moves all extremities and no focal motor deficits Sensorium / Orientation: awake, alert, oriented to person, oriented to place and oriented to time Speech: speech normal Psych affect normal Results Medical Records Data Attestation: I reviewed the patient's medical records Lab / Micro Data Attestation: I reviewed the patient's lab results. 10/01/23 17:55 10/01/23 17:55 Labs: Laboratory Results - last 24 hr 10/01/23 17:55: WBC 9.6, RBC 3.33 L, Hgb 9.6 L, Hct 30.0 L, MCV 90.1, MCH 28.8, MCHC 32.0, RDW Std Deviation 42.9, RDW Coeff of Alisson 13.2, Plt Count 276, MPV 10.7, Immature Gran % (Auto) 0.500, Neut % (Auto) 83.7 H, Lymph % (Auto) 8.3 L, [place] % (Auto) 6.4, Eos % (Auto) 0.8, Baso % (Auto) 0.3, Absolute Neuts (auto) 8.0 H, Absolute Lymphs (auto) 0.80 L, Nucleated RBC % 0, Sodium 137, Potassium 4.0, Chloride 103, Carbon Dioxide 29.0, Anion Gap 5, BUN 26 H, Creatinine 1.48 H , Est GFR (MDRD) Af Amer 61, Est GFR (MDRD) Non-Af 50 L, BUN/Creatinine Ratio 17.6, Glucose 369 H, Calcium 8.0 L 10/01/23 19:47: POC Glucose 288 H Imaging Radiology Impression Chest X-Ray 10/01/23 17:42 IMPRESSION: Left-sided effusion with minimal left basilar airspace disease. There has been no significant change from the reference exam. Electronically Signed: Aniceto Newberry MD at 18:14 EDT , - [facility] Imaging Services [address] [place] [address] [id number] Chest without Contrast MR#: [id number] Acct: [id number] Name: ABDIEL CORTEZ Rep #: [id number] : [id number] 68 From: Aniceto Newberry MD PCP: Dr. Chinmay Sin MD Status: ADM IN Study: Chest without Contrast Date of Exam: 10/01/23 Exam# [id number] Ordering Dr: Himanshu Bermeo DO EXAM: CT CHEST WITHOUT INTRAVENOUS CONTRAST CLINICAL INDICATION: Left Pleural Effusion with Hypoxia. TECHNIQUE: Helically acquired images were obtained of the chest without intravenous contrast. This CT exam was performed using one or more of the following dose reduction techniques: automated exposure control, adjustment of the mA and/or kV according to patient size, and/or use of iterative reconstruction technique. COMPARISON: 07/23/2023 FINDINGS: LUNGS AND PLEURAL SPACES: Trace left-sided effusion with left lower lobe consolidation which may represent atelectasis or pneumonia. This is stable from the reference exam. No mass. HEART: There are moderate to severe coronary artery calcifications which are stable. Heart size is normal. No pericardial effusion. MEDIASTINUM: Unremarkable. No mediastinal or hilar adenopathy. Esophagus is unremarkable. No hiatal hernia. THYROID: Unremarkable. No thyroid lesions. BONES/JOINTS: Unremarkable. No suspicious lytic or blastic abnormality. VASCULATURE: See above. ADRENALS: There are large fat-containing masses seen within both adrenal glands which may represent bilateral myelolipomas. These are also stable from the reference exam. TUBES, LINES AND DEVICES: Tracheostomy tube is in place. CT/Chest without Contrast IMPRESSION: 1. Small left-sided effusion with left basilar atelectasis unchanged from the reference exam. There is no acute pulmonary abnormality. 2. 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 Electronically Signed: Aniceto Newberry MD at 23:39 EDT , CC: Dr. Himanshu Beremo DO; Dr. Chinmay Sin MD ~ Proposal Lead Writer: Signed Assessment & Plan Assessment/Plan (1) COPD exacerbation: (2) Acute exacerbation of CHF (congestive heart failure): QUALIFIERS: Heart failure type: diastolic Qualified Code(s): I 50.33 - Acute on chronic diastolic (congestive) heart failure (3) Pleural effusion on left: (4) Respiratory insufficiency: (5) Symptomatic bradycardia: (6) Adverse drug reaction: QUALIFIERS: Encounter type: initial encounter Qualified Code(s): T50.905A - Adverse effect of unspecified drugs, medicaments and biological substances, initial encounter (7) Chronic atrial fibrillation: PLAN: Plan 1. AE COPD with small Left Pleural Effusion on CXR in the setting of a known history of recurrent pleural effusion of LLL; requiring drainage - Admit to PCU. Continue treatment with IV Solumedrol and IV Doxycycline with both scheduled and prn nebulizers. Check CT of chest to quantify effusion to see if thoracentesis may be needed. 2. Symptomatic Bradycardia likely due to Adverse Drug Reaction to Sotalol with heart rate ~40 bpm present on admission complicating #1 - Hold Sotalol and monitor for improvement. Consider restarting at lower dose to prevent recurrence. 3. AE of Chronic diastolic CHF; with preserved LVEF compounding #1 & #2 - Start Lasix 40 mg IV BID with supplemental KCl and magnesium. Check echocardiogram to evaluate LVEF. 4. Nbrxa-mq-[id number] Respiratory Insufficiency due to #1 - #3 - Wean additional supplemental oxygen as tolerated. 5. Chronic atrial fibrillation; on Sotalol and Eliquis - Continue Eliquis but hold Sotalol. Avoid any other agents which may further decrease heart rate. 6. History of Laryngeal cancer; s/p laryngectomy (2007) with previous tracheostomy (removed) with no chemo or radiation given - Noted. 7. Essential hypertension - Continue current regimen plus give prn IV Hydralazine for systolic blood pressure < 160 mmHg. 8. Hyperlipidemia - Resume statin. 9. Hypothyroidism; with history of thyroidectomy - Continue Levothyroxine and check TSH. 10. Obesity; with BMI of 36.9 this admission - Weight loss will be recommended. This complicates his case and may hamper his recovery. 11. DM-2; uncontrolled with hyperglycemia - ADA/Cardiac diet. FSBS q. AC/HS plus SSI. Check HgbA1c to objectively assess quality of diabetic control. 12. History of tobacco abuse (quit ~12 year ago); with subsequent COPD - Noted. 13. Chronic hypoxic respiratory failure; on ~3-4L NC nocturnally - Noted. 14. CKD; stage IIIa - Stable. Check labs daily to ensure continued stability. 15. SOCRATES - Resume oral iron supplementation and check iron and ferritin levels. 16. History of migraine headaches - Stable with no recurrence at this time. 17. Depression with anxiety - Continue current regimen. 18. History of exploratory laparotomy - Noted. 19. GERD; with hiatal hernia and esophageal dysmotility on daily Omeprazole - Resume Omeprazole as previous. 20. History of colonic diverticulosis - Noted. 21. History of colon polyps - Noted. 22. Gout - Stable and chronic with no evidence of acute flare at this time. 23. OA; with chronic pain syndrome on prn Tramadol who typically ambulates with a cane - Give Tylenol for [id number] (1-5/10) pain or fever. Give Tramadol prn for severe (level 6-10/10) pain. 24. DVT prophylaxis - Patient already on Eliquis for #4 which will be continued. Total time: Approximately 75 minutes. Charges/Coding Visit Charges Inpatient E&M: 28256 Init Hosp L3
[2023-10-01] MEDS: predniSONE 20 MG Tablet 40 MG PO (21:24)
--- NOTE | 2023-10-01 21:54 | CT_ITS ---
EXAM: CT CHEST WITHOUT INTRAVENOUS CONTRAST CLINICAL INDICATION: Left Pleural Effusion with Hypoxia. TECHNIQUE: Helically acquired images were obtained of the chest without intravenous contrast. This CT exam was performed using one or more of the following dose reduction techniques: automated exposure control, adjustment of the mA and/or kV according to patient size, and/or use of iterative reconstruction technique. COMPARISON: 07/23/2023 FINDINGS: LUNGS AND PLEURAL SPACES: Trace left-sided effusion with left lower lobe consolidation which may represent atelectasis or pneumonia. This is stable from the reference exam. No mass. HEART: There are moderate to severe coronary artery calcifications which are stable. Heart size is normal. No pericardial effusion. MEDIASTINUM: Unremarkable. No mediastinal or hilar adenopathy. Esophagus is unremarkable. No hiatal hernia. THYROID: Unremarkable. No thyroid lesions. BONES/JOINTS: Unremarkable. No suspicious lytic or blastic abnormality. VASCULATURE: See above. ADRENALS: There are large fat-containing masses seen within both adrenal glands which may represent bilateral myelolipomas. These are also stable from the reference exam. TUBES, LINES AND DEVICES: Tracheostomy tube is in place. CT/Chest without Contrast IMPRESSION: 1. Small left-sided effusion with left basilar atelectasis unchanged from the reference exam. There is no acute pulmonary abnormality. 2. 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 Electronically Signed: Aniceto Newberry MD at 23:39 EDT ,
[2023-10-01 22:08] LABS: Blood Gas Specimen Type VEN; O2 Delivery Device Not entered; SITE Not entered; VBG BASE EXCESS 6 mmol/L (-1.0-3.5); VBG Bicarbonate 32 mmol/L (22-26); VBG PO2 58 mmHg (25-40); VBG SO2 88 % (50-70); VBG TCO2 34 mmol/L (23-33); VBG pCO2 55.7 mmHg (41-51); VBG pH 7.36 (7.32-7.42)
[2023-10-01 22:31] LABS: Ferritin 83 ng/mL (26-388); Iron 38 ug/dL (65-175); Iron Binding Capacity,Total 217 ug/dL (250-450); PERCENT IRON SATURATION 17.5 % (15.0-55.0)
[2023-10-01 22:36] LABS: BNP,B-Type NATRIURETIC PEPTIDE 602.1 pg/mL (0-100)
[2023-10-01] MEDS: 0.9% Normal Saline (1000mL) 1,000 ML 50 ML IV (23:07)
[2023-10-01] MEDS: Acetaminophen 325 MG Tablet 650 MG PO (23:08)
[2023-10-01] MEDS: Furosemide 40 MG Tablet PO (23:08)
[2023-10-01] MEDS: APIXABAN 5 MG TABLET PO (23:09)
[2023-10-01] MEDS: Insulin Lispro 100 UNIT/ML INSULN.PEN 10 UNIT SC (23:16)
[2023-10-02] VITALS (10 sets, daily range): BP systolic 123–182; BP diastolic 71–83; PULSE 47–69; RESP 15–20; TEMP 36.5–37; O2SAT 95–100; BMI 36.9
[2023-10-02] MEDS: hydrALAZINE 20 MG/ML Vial 10 MG IV (00:50)
[2023-10-02 00:53] LABS: Bedside Glucose 166 mg/dL (74-106)
[2023-10-02] MEDS: Magnesium Chloride 64 MG Delay Rel.Tablet 128 MG PO ×3 (03:50→21:54)
[2023-10-02] MEDS: Furosemide 40 MG/4 ML Vial IV ×3 (03:50→16:20)
[2023-10-02] MEDS: Levothyroxine 150 MCG Tablet PO (05:50)
[2023-10-02 06:25] LABS: Absolute Lymphocyte Count 0.38 X10^3/uL (0.83-4.51); Absolute Neutrophil Count 10.2 X10^3/uL (2.0-7.7); Basophil# 0.02 X10^3/uL; Basophil% 0.2 % (0-1); Hematocrit 33.3 % (40-54); Hemoglobin 10.8 g/dL (13.0-16.5); Lymphocyte # 0.38 X10^3/ul (0.83-4.51); Lymphocyte % 3.5 % (19-41); Mean Corp Hgb Conc 32.4 g/dL (32-36); Mean Corpuscular Hgb 28.9 pg (27.0-32.0); Monocyte# 0.07 X10^3/uL; Monocyte% 0.7 % (0-10); NRBC Flagged by Analyzer 0 % (0-5); Neutrophil # 10.24 X10^3/uL (2.7-7.7); Neutrophil % 95.1 % (47-70); POSITIVE DIFFERENTIAL YES; Platelet Count 284 K/mm3 (150-450); RBC Distribution Width SD 42.4 fl (35.1-43.9); Red Blood Count 3.74 M/mm3 (4.6-6.2); White Blood Count 10.8 K/mm3 (4.4-11.0)
[2023-10-02] MEDS: Budesonide Respules 0.5 MG/2 ML AMPUL.NEB. INHALATION ×2 (07:02→19:30)
[2023-10-02] MEDS: Ipratropium/Albuterol Sulfate 3 ML AMPUL.NEB INHALATION ×4 (07:03→19:31)
[2023-10-02] MEDS: Ferrous Sulfate 325 MG Tablet PO (08:07)
[2023-10-02] MEDS: Insulin Lispro 100 UNIT/ML INSULN.PEN 10 UNIT SC ×3 (08:07→16:21)
[2023-10-02] MEDS: amLODIPine 5 MG Tablet PO (08:09)
[2023-10-02] MEDS: Pantoprazole Sodium 20 MG Tablet PO (08:09)
[2023-10-02] MEDS: Empagliflozin 10 MG Tablet PO (08:09)
[2023-10-02] MEDS: APIXABAN 5 MG TABLET PO ×2 (08:09→21:54)
[2023-10-02] MEDS: Cyanocobalamin 500 MCG Tablet PO (08:10)
[2023-10-02] MEDS: Potassium Chloride Oral Tablet 20 MEQ PO ×3 (08:11→16:21)
[2023-10-02] MEDS: 0.9% Saline Lock 10 ML Syringe IV ×3 (08:11→16:20)
[2023-10-02 09:54] LABS: Bedside Glucose 315 mg/dL (74-106)
[2023-10-02 10:54] LABS: ALB/GLOB Ratio 0.9 RATIO (0.9-2.4); AST(SGOT) 13 U/L (15-37); Alanine Aminotransfer ALT/SGPT 23 U/L (16-61); Albumin, Serum 3.2 g/dL (3.2-5.0); Alkaline Phosphatase 107 U/L (45-117); Anion Gap 10 (5-15); BUN 25 mg/dL (7-18); BUN/Creat Ratio 19.7 RATIO (10-20); Calcium,Total 8.7 mg/dL (8.5-10.1); Chloride 101 mmol/L (98-107); Creatinine, Serum 1.27 mg/dL (0.70-1.30); EST Glomerular Filtration Rate 60 mL/min (>60); Est Glom Filt Rate - Afr Amer 72 mL/min (>60); Globulin 3.7 g/dL (2.2-4.2); Glucose 319 mg/dL (74-106); Magnesium 2.1 mg/dL (1.6-2.6); Phosphorus 3.1 mg/dL (2.5-4.9); Potassium 4.1 mmol/L (3.5-5.1); Protein, Total 6.9 g/dL (6.4-8.2); Sodium Level 138 mmol/L (136-145); Thyroid Stim Hormone (TSH) 0.979 uIU/mL (0.358-3.740)
[2023-10-02] MEDS: levoFLOXacin 500 MG Tablet PO (11:04)
--- NOTE | 2023-10-02 11:20 | CASEMGMT ---
Addendum entered by Vy Christy 10/02/23 13:28: ANUSHA EDGAR TC to Hanna White said pt is 2L continuous via trach. Original Note: ANUSHA EDGAR Assessment: Face to Face with pt for initial transition planning/care coordination assessment. ANUSHA EDGAR introduced self and role at [facility], pt voices understanding and consents to assessment. Pt is A&O x4 and answers all questions appropriately at this time. Pt sitting up in chair in no distress. Care providers, pharmacy, and demographics verified/updated. Strata: 3 Admitting Dx: AE COPD and Bradycardia PCP: January Specialists: Sanjay, Photographic Enlarger Operator; Raya, Veterans Employment Representative; Elio, Food General Manager. Preferred Pharmacy: [facility] Insurance: [employer] [facility] Prescription Benefit: yes LNOK: , Daughter. Living Arrangements: Pt lives with and 2 kids in a mobile home with 3 steps to enter. ADLs: Pt reports needs I with ADLs and needs assistance with IADLs. and family able to assist him. Transportation: provides transportation. DME: Walker, Cane, O2 through [facility]. HHC/SNF: Denies Hx of. Pt states no concerns with going home at time of dc. Pt states no further concerns/needs. CM to follow. Advised pt to ask CM if any further question/concerns/needs arise, voices understanding. Pt Goal: Home Plan: Home, follow for O2 changes. Pt would like script for Glucometer and Supplies. Matt TAVARES CM
[2023-10-02 12:14] LABS: BNP,B-Type NATRIURETIC PEPTIDE 514.5 pg/mL (0-100)
[2023-10-02 13:23] LABS: Bedside Glucose 316 mg/dL (74-106)
[2023-10-02 15:29] LABS: Hemoglobin A1c 8.1 % (3.8-5.6)
[2023-10-02] MEDS: Atorvastatin Calcium 40 MG Tablet PO (16:22)
--- NOTE | 2023-10-02 17:02 | PN.HOSP_ITS ---
Reason for Visit Reason for Visit: Diagnoses Chronic atrial fibrillation, unspecified (10/01/23) Acute on chronic diastolic (congestive) heart failure (10/01/23) Chronic obstructive pulmonary disease with (acute) exacerbation (10/01/23) Pleural effusion, not elsewhere classified (10/01/23) Bradycardia, unspecified (10/01/23) Other abnormalities of breathing (10/01/23) Adverse effect of unspecified drugs, medicaments and biological substances, initial encounter (10/01/23) Subjective Subjective Patient was seen and examined today, he appears comfortable at rest, he is currently on room air. Patient's heart rate remains in the 50s but he is asymptomatic. Objective Data Objective Data Vital Signs: Vital Signs Temp Pulse Resp BP Pulse Ox O2 Del Method O2 Flow Rate 98 F 59 L 16 152/78 H 97 Room Air 8 10/02/23 14:00 10/02/23 15:22 10/02/23 15:22 10/02/23 14:00 10/02/23 14:00 10/02/23 14:00 10/02/23 08:01 FiO2 30 10/02/23 08:01 Oxygen Flow Rate (L/min) 8 Oxygen Delivery Method Room Air Weight: 120.1 kg Body Mass Index (BMI) 36.9 Intake & Output: Intake and Output for Last 24 Hours 09/30/23 10/01/23 10/02/23 23:59 23:59 23:59 Intake Total 1420 / 1420 Output Total 1785 / 1785 Balance -365 / -365 Lab / Micro Data 10/02/23 05:34 10/02/23 05:34 Labs: Laboratory Results - last 24 hr 10/01/23 17:55: WBC 9.6, RBC 3.33 L, Hgb 9.6 L, Hct 30.0 L, MCV 90.1, MCH 28.8, MCHC 32.0, RDW Std Deviation 42.9, RDW Coeff of Alisson 13.2, Plt Count 276, MPV 10.7, Immature Gran % (Auto) 0.500, Neut % (Auto) 83.7 H, Lymph % (Auto) 8.3 L, [place] % (Auto) 6.4, Eos % (Auto) 0.8, Baso % (Auto) 0.3, Absolute Neuts (auto) 8.0 H, Absolute Lymphs (auto) 0.80 L, Nucleated RBC % 0, Sodium 137, Potassium 4.0, Chloride 103, Carbon Dioxide 29.0, Anion Gap 5, BUN 26 H, Creatinine 1.48 H , Est GFR (MDRD) Af Amer 61, Est GFR (MDRD) Non-Af 50 L, BUN/Creatinine Ratio 17.6, Glucose 369 H, Calcium 8.0 L, Iron 38 L, TIBC 217 L, Iron Saturation 17.5, Ferritin 83, B-Natriuretic Peptide 602.1 H 10/01/23 19:47: POC Glucose 288 H 10/01/23 23:11: POC Glucose 166 H 10/02/23 05:34: WBC 10.8, RBC 3.74 L, Hgb 10.8 L, Hct 33.3 L, MCV 89.0, MCH 28.9, MCHC 32.4, RDW Std Deviation 42.4, RDW Coeff of [place]isson 13.0, Plt Count 284, MPV 11.0, Immature Gran % (Auto) 0.500, Neut % (Auto) 95.1 H, Lymph % (Auto) 3.5 L, [place] % (Auto) 0.7, Eos % (Auto) 0.0, Baso % (Auto) 0.2, Absolute Neuts (auto) 10.2 H, Absolute Lymphs (auto) 0.38 L, Nucleated RBC % 0, Sodium 138, Potassium 4.1, Chloride 101, Carbon Dioxide 27.0, Anion Gap 10, BUN 25 H, Creatinine 1.27, Estim Creat Clear Calc 73.40, Est GFR (MDRD) Af Amer 72, Est GFR (MDRD) Non-Af 60, BUN/Creatinine Ratio 19.7, Glucose 319 H, Hemoglobin A1c 8.1 H, Calcium 8.7, Phosphorus 3.1, Magnesium 2.1, Total Bilirubin 0.60, AST 13 L, ALT 23, Alkaline Phosphatase 107, B-Natriuretic Peptide 514.5 H, Total Protein 6.9, Albumin 3.2, Globulin 3.7, Albumin/Globulin Ratio 0.9, TSH 0.979 10/02/23 08:05: POC Glucose 315 H 10/02/23 11:02: POC Glucose 316 H ABG Data ABG results: ABG 10/01/23 22:04 Specimen Type MAGGIE Sample Site Not entered VBG pH 7.36 VBG pO2 58 H VBG HCO3 32 H VBG Total CO2 34 H VBG O2 Sat (Calc) 88 H VBG Base Excess 6 H POC Mix VBG pCO2 Pt Tmp 55.7 H O2 Delivery Device Not entered Radiography Diagnostic Testing: Radiology Impression Chest X-Ray 10/01/23 17:42 IMPRESSION: Left-sided effusion with minimal left basilar airspace disease. There has been no significant change from the reference exam. Electronically Signed: Aniceto Newberry MD at 18:14 EDT , Chest CT 10/01/23 21:54 IMPRESSION: 1. Small left-sided effusion with left basilar atelectasis unchanged from the reference exam. There is no acute pulmonary abnormality. 2. 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 Electronically Signed: Aniceto Newberry MD at 23:39 EDT , Physical Exam Const alert, oriented x3 and no apparent distress General Appearance: cooperative, well kempt and well developed Orientation / Consciousness: awake, oriented to person, oriented to place and oriented to time HEENT normocephalic, head/scalp atraumatic and moist oral mucous membranes HEENT Narrative: Patient has a tracheostomy in place Head and Scalp: normocephalic Eyes PERRL, EOMs intact bilaterally and conjunctivae normal Neck supple and no JVD Neck Narrative: Tracheostomy is in place Resp normal respiratory effort, no retractions, no use of accessory muscles and clear to auscultation bilaterally Auscultation: Negative for rales, rhonchi or wheezes Cardio regular rate, regular rhythm, S1 normal heart sound, S2 normal heart sound, no murmurs, no rub and no gallops GI normal to inspection, nondistended, normoactive bowel sounds, soft to palpation, non-tender and non-distended Extremity no clubbing, cyanosis or edema Skin no rashes or lesions noted General Skin Exam: no breakdown Neuro oriented x3, CN's II-XII intact bilaterally, no focal motor deficits and no sensory deficits noted Sensorium / Orientation: awake and alert Speech: speech normal Psych affect normal Assessment & Plan Assessment/Plan (1) COPD exacerbation: PLAN: Plan 1. Exacerbation of COPD-continue IV Solu-Medrol and aerosol treatments, pulse ox will be monitored #2 type 2 diabetes-blood sugars will continue to be monitored blood sugars will continue to be monitored, sliding scale insulin will be given as needed #3 paroxysmal atrial fibrillation-patient is not currently on sotalol which she had been taking at home, he is currently bradycardic and he is on telemetry. Patient is on Eliquis #4 hypoxia secondary to #1-patient currently is on room air, he uses oxygen at 4 L during sleep #5 acute exacerbation of chronic congestive heart failure with preserved ejection fraction-I believe the patient can be transitioned over to oral Lasix tomorrow if he remains medically stable. #6 hyperlipidemia-patient is on Lipitor Total clinical time spent by myself addressing the patient's medical issues, reviewing all of his data, and collaborating with patient's care team: 35 minutes Charges/Coding Visit Charges Inpatient E&M: 02114 Subs Hosp L2
[2023-10-02 18:04] LABS: Bedside Glucose 303 mg/dL (74-106)
[2023-10-03] VITALS (7 sets, daily range): BP systolic 145–160; BP diastolic 64–73; PULSE 49–60; RESP 16–20; TEMP 36.7–36.8; O2SAT 90–100; BMI 36.8
[2023-10-03] MEDS: Ipratropium/Albuterol Sulfate 3 ML AMPUL.NEB INHALATION ×3 (01:10→11:32)
[2023-10-03] MEDS: Levothyroxine 150 MCG Tablet PO (05:32)
[2023-10-03] MEDS: levoFLOXacin 500 MG Tablet PO (05:32)
[2023-10-03] MEDS: 0.9% Saline Lock 10 ML Syringe IV (05:36)
[2023-10-03] MEDS: Budesonide Respules 0.5 MG/2 ML AMPUL.NEB. INHALATION (07:07)
[2023-10-03] MEDS: Acetaminophen 325 MG Tablet 650 MG PO (07:58)
[2023-10-03] MEDS: Pantoprazole Sodium 20 MG Tablet PO (07:59)
[2023-10-03] MEDS: Ferrous Sulfate 325 MG Tablet PO (07:59)
[2023-10-03] MEDS: Insulin Lispro 100 UNIT/ML INSULN.PEN 10 UNIT SC ×2 (07:59→10:55)
[2023-10-03] MEDS: amLODIPine 5 MG Tablet PO (07:59)
[2023-10-03] MEDS: Furosemide 40 MG/4 ML Vial IV (08:00)
[2023-10-03] MEDS: Cyanocobalamin 500 MCG Tablet PO (08:00)
[2023-10-03] MEDS: APIXABAN 5 MG TABLET PO (08:00)
[2023-10-03] MEDS: Potassium Chloride Oral Tablet 20 MEQ PO ×2 (08:00→08:01)
[2023-10-03] MEDS: Magnesium Chloride 64 MG Delay Rel.Tablet 128 MG PO (08:00)
[2023-10-03] MEDS: Empagliflozin 10 MG Tablet PO (08:01)
[2023-10-03 11:04] LABS: Anion Gap 8 (5-15); BUN 33 mg/dL (7-18); BUN/Creat Ratio 19.8 RATIO (10-20); Chloride 100 mmol/L (98-107); Creatinine, Serum 1.67 mg/dL (0.70-1.30); EST Glomerular Filtration Rate 44 mL/min (>60); Est Glom Filt Rate - Afr Amer 53 mL/min (>60); Glucose 339 mg/dL (74-106); Potassium 4.6 mmol/L (3.5-5.1); Sodium Level 135 mmol/L (136-145)
[2023-10-03 11:09] LABS: Bedside Glucose 265 mg/dL (74-106)
[2023-10-03 11:15] LABS: Bedside Glucose 309 mg/dL (74-106)
--- NOTE | 2023-10-03 11:46 | CASEMGMT ---
Addendum entered by Lilia Vila 10/03/23 14:16: Pt did not qualify for additional oxygen. Original Note: Dr. Noriega signs Rx for BGM and supplies. Physical copy given to the pt at this time. Dr. Noriega plans to DC the pt today after a walking Pulse Ox test. Pt current order is 2L continuous. Will follow for updated Rx needs. Pt states that his will bring in a portable tank at time of DC. Pt denies further questions or concerns at this time.
--- NOTE | 2023-10-03 11:55 | DCINST_ITS ---
Discharge Instructions Diet Discharge Diet: 1800 Calorie Control Diet Activity Discharge Activity: Return to Normal Activity Weight Bearing Status: Full weight bearing Follow Up Care Test Results: Test results from this visit will be discussed in further detail at your follow- up appointment, if applicable. 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 wthin 2-3 weeks Discharge Orders/Prescriptions Prescriptions: New tramadol 50 mg Tablet 50 mg PO Q8H PRN PRN (Reason: Pain Score 6-10) Qty: 21 0RF levofloxacin 500 mg Tablet 500 mg PO DAILY@0600 Qty: 4 0RF prednisone 20 mg tablet 20 mg PO BID Qty: 10 0RF Rx Instructions: START THE EVENING OF 10/02/23 Continued ferrous sulfate [FeroSul] 325 mg (65 mg iron) tablet 325 mg PO DAILY levothyroxine 150 MCG tablet 150 mcg PO DAILY Patient Comments: thyroid atorvastatin 40 MG tablet 40 mg PO DAILY@1700 ipratropium-albuterol 3 ML solution for nebulization 3 ml inhalation Q4H Patient Comments: breathing acetaminophen 325 mg Tablet 650 mg PO DAILY PRN (Reason: Pain) budesonide [Pulmicort] 0.5 mg/2 mL Suspension For Nebulization 0.5 mg INHALATION BID potassium chloride 10 mEq capsule, extended release 20 meq PO DAILY Patient Comments: TAKE 2 CAPSULES BY MOUTH ONCE DAILY (DME) pen needle, diabetic 32 gauge x 3/16 needle See Rx Instructions .Route Qty: 100 2RF Rx Instructions: As directed buspirone 7.5 mg tablet 7.5 mg PO TID PRN PRN (Reason: anxiety) Jardiance 10 mg tablet 10 mg PO DAILY cyanocobalamin (vitamin B-12) 500 mcg tablet 500 mcg PO DAILY omeprazole 20 mg capsule,delayed release(DR/EC) 20 mg PO DAILY furosemide 40 mg tablet 40 mg PO BID insulin lispro 100 unit/mL insulin pen 10 unit subcut TID Ozempic 0.25 mg or 0.5 mg (2 mg/3 mL) pen injector 0.25 mg subcut QWEEK Rx Instructions: for 4 weeks (DME) FreeStChromoTek Zayra 2 Sensor Kit See Rx Instructions .ROUTE .MEDSUPPLY Qty: 2 6RF Rx Instructions: As directed amlodipine 5 mg tablet 5 mg PO DAILY Qty: 90 3RF Eliquis 5 mg tablet 5 mg PO BID Qty: 180 4RF Discontinued azithromycin 250 mg tablet 250 mg PO DAILY methylprednisolone 4 mg tablets,dose pack 4 mg PO UD No Action Ozempic 2 mg/dose (8 mg/3 mL) pen injector 2 mg subcut .COMPLEX Rx Instructions: 2 mg subcutaneously once a week last taken Sunday09/28/23; Referrals / Follow Up: Chinmay Sin MD [Primary Care Provider] - Within 2 Weeks Disposition Disposition (needs filled in before D/C Order can be placed): Home, Self Care
== END 2023-10-03 15:00 | disposition home or self-care (01) | DRG 190 ==
LOC: ED 20:54 → PCU 21:30
PROVIDERS: Admitting Provider Internal Medicine; Emergency Provider Emergency Medicine; PCP Family Medicine; Visit Provider Internal Medicine
DX: J44.1 Chronic obstructive pulmonary disease with (acute) exacerbation (principal); I50.33 Acute on chronic diastolic (congestive) heart failure; J96.11 Chronic respiratory failure with hypoxia; I48.20 Chronic atrial fibrillation, unspecified; J90 Pleural effusion, not elsewhere classified; I13.0 Hypertensive heart and chronic kidney disease with heart failure and stage 1 through stage 4 chronic kidney disease, or unspecified chronic kidney disease; Z93.0 Tracheostomy status; E11.22 Type 2 diabetes mellitus with diabetic chronic kidney disease; D50.9 Iron deficiency anemia, unspecified; C32.9 Malignant neoplasm of larynx, unspecified; N18.31 Chronic kidney disease, stage 3a; E89.0 Postprocedural hypothyroidism; Z68.36 Body mass index [BMI] 36.0-36.9, adult; E11.65 Type 2 diabetes mellitus with hyperglycemia; I25.10 Atherosclerotic heart disease of native coronary artery without angina pectoris; K21.9 Gastro-esophageal reflux disease without esophagitis; M19.90 Unspecified osteoarthritis, unspecified site; K22.4 Dyskinesia of esophagus; K44.9 Diaphragmatic hernia without obstruction or gangrene; E78.5 Hyperlipidemia, unspecified; R00.1 Bradycardia, unspecified; F41.8 Other specified anxiety disorders; Z82.3 Family history of stroke; Z79.01 Long term (current) use of anticoagulants; G89.4 Chronic pain syndrome; Z86.010 Personal history of colon polyps; E66.9 Obesity, unspecified; Z87.891 Personal history of nicotine dependence; T50.905A Adverse effect of unspecified drugs, medicaments and biological substances, initial encounter
CPT/HCPCS: 36415; 71045; 71250; 80048; 80053; 82728; 82803; 82962; 83036; 83540; 83550; 83735; 83880; 84100; 84443; 85025; 93005; 94640; 94760; 99252; 99283; J7030; A4216; G0463; J1940

== ENCOUNTER 2024-01-12 16:54 | Inpatient (IN) | payer MEDICARE, SELFPAY ==
[2024-01-12] VITALS (13 sets, daily range): BP systolic 149–178; BP diastolic 75–97; PULSE 86–109; RESP 20–34; TEMP 36.7–37.9; O2SAT 93–100; BMI 36.2; BMI 35.8
--- NOTE | 2024-01-12 17:23 | EKG12_ITS ---
Test Reason : SOB Blood Pressure : */* mmHG Vent. Rate : 96 BPM Atrial Rate : 96 BPM P-R Int : 208 ms QRS Dur : 82 ms QT Int : 350 ms P-R-T Axes : 112 38 44 degrees QTcB Int : 442 ms Normal sinus rhythm Nonspecific T wave abnormality Abnormal ECG Confirmed by Denis Grant ([id number]), magazine editor DARRELL PÉREZ ([id number]) on 01/14/2024 6:56:25 AM Referred By: Himanshu Bermeo Confirmed By: Denis Grant
[2024-01-12] MEDS: Ipratropium/Albuterol Sulfate 3 ML AMPUL.NEB 9 ML INHALATION (17:32)
[2024-01-12] MEDS: Ondansetron 4 MG/2 ML Vial IV (17:41)
[2024-01-12] MEDS: 0.9% Normal Saline (1000mL) 1,000 ML 1000 ML IV (17:41)
--- NOTE | 2024-01-12 17:42 | EDS_ITS ---
HPI History of Present Illness Chief Complaint: Shortness of Breath Narrative Narrative: Chief complaint and HPI: Shortness of breath. 68-year-old male with history of atrial fibrillation on Eliquis, CHF, HTN, status post tracheostomy due to cancer on 3 L baseline, COPD presents for evaluation of shortness of breath, nausea, generalized weakness, and bilateral lower extremity swelling. Patient states for the past 3 days he has had increased bilateral lower extremity swelling. He states he has been taking his home Lasix. Patient states that he has not gained any weight. Patient states he has had progressive shortness of breath. He endorses cough. He denies any fever, chills, URI symptoms, chest pain. He endorses nausea but no emesis. Due to the nausea he has had decreased p.o. intake. Denies any dysuria or hematuria. Patient states that he has also had swelling in his right hand/wrist. He denies any injury or trauma to this area. Review of systems: See HPI Medications: As listed on the chart Allergies: As listed on the chart PFSH: Per chart Vital signs: As listed on the chart. Reviewed. Physical exam: Gen: A&O x3 Head: Normocephalic, atraumatic Eyes: No sclera icterus, conjunctiva clear, PERRL, EOMI ENT: Dry mucous membranes Neck: Trachea midline, No JVD, tracheostomy stoma CV: RRR, no murmurs, + 2 pitting peripheral edema from the feet to the mid calves-tender but no signs of cellulitis Resp: Lungs CTA BL but diminished in the bilateral bases, no w/r/c, on his baseline oxygen GI: Abd soft, non-distended, non-tender, no r/r/g Musc: Moves all extremities, no deformity, right hand/wrist is mildly edematous, erythematous, warm-appear cellulitic. Nontender to palpation. Full range of motion. Good capillary refill. Ulnar and radial pulses plus 2 out of 4 Skin: Warm, dry Neuro: Alert, oriented, grossly intact, sensation intact Psych: Cooperative, appropriate mood and affect [facility] Medical History (Updated 10/16/23 @ 13:39 by Phyllis Solis [employer] TE[employer]ER, [employer] TE[employer]ER-C) Respiratory insufficiency Adverse drug reaction Symptomatic bradycardia Sinus bradycardia Hypoxia Anticoagulant long-term use COPD exacerbation Pleural effusion on left Acute exacerbation of CHF (congestive heart failure) Kidney disease COPD (chronic obstructive pulmonary disease) Atrial fibrillation BPH (benign prostatic hyperplasia) Anxiety and depression Stage 3a chronic kidney disease (CKD) Atrial fibrillation Obesity Tracheostomy in place Anticoagulant long-term use Chronic a-fib Recurrent left pleural effusion Chronic pain (HFpEF) heart failure with preserved ejection fraction Wears glasses Walker as ambulation aid Ambulates with cane Injury of back Migraine headache Gastric reflux Former smoker On home oxygen therapy Emphysema, unspecified Obesity Chronic renal failure, stage 3 (moderate) Laryngeal cancer Gastroenteritis Diabetes mellitus, type II Malignant neoplasm of head, neck and face History of colon polyps Gout Hyperlipidemia Hiatal hernia Esophageal dysmotility Diverticulosis of colon (without mention of hemorrhage) Benign neoplasm of colon Atherosclerosis of coronary artery of [place] heart without angina pectoris Essential hypertension Hypothyroidism COPD (chronic obstructive pulmonary disease) Home Medications ?Medication ?Instructions ?Recorded ?Last Taken ?Type levothyroxine 150 mcg tablet 150 mcg PO DAILY hypothyroidism 06/04/14 11/13/22 History atorvastatin 40 mg tablet 40 mg PO DAILY@1700 cholesterol 04/12/17 11/12/22 History ipratropium 0.5 mg-albuterol 3 mg 3 ml inhalation Q4H sob 04/12/17 11/13/22 History (2.5 mg base)/3 mL nebulization soln flash glucose sensor (FreeStyle #2 ea 05/17/21 Unknown Rx Zayra 2 Sensor kit) acetaminophen 325 mg tablet 650 mg PO DAILY PRN Pain 12/06/21 11/13/22 History budesonide 0.5 mg/2 mL suspension 0.5 mg inhalation BID sob 12/06/21 11/10/22 History for nebulization (Pulmicort) ferrous sulfate 325 mg (65 mg 325 mg PO DAILY iron 08/29/22 11/13/22 History iron) tablet (FeroSul) potassium chloride 10 mEq 20 meq PO DAILY mineral 11/13/22 11/13/22 History capsule,extended release pen needle, diabetic 32 gauge x #100 ea 06/22/23 Unknown Rx 3/16 amlodipine 5 mg tablet 5 mg PO DAILY #90 tabs 09/17/23 Unknown Rx apixaban 5 mg tablet (Eliquis) 5 mg PO BID blood thinner #180 tabs 09/20/23 Unknown Rx buspirone 7.5 mg tablet 7.5 mg PO TID PRN PRN anxiety 10/01/23 Unknown History cyanocobalamin (vitamin B-12) 500 500 mcg PO DAILY 10/01/23 Unknown History mcg tablet empagliflozin 10 mg tablet 10 mg PO DAILY 10/01/23 Unknown History (Jardiance) insulin lispro 100 unit/mL 10 unit subcut TID 10/01/23 Unknown History subcutaneous pen omeprazole 20 mg capsule,delayed 20 mg PO DAILY 10/01/23 Unknown History release semaglutide 2 mg/dose (8 mg/3 mL) 2 mg subcut .COMPLEX diabetes 10/01/23 Unknown History subcutaneous pen injector (Ozempic) furosemide 40 mg tablet 40 mg PO BID EDEMA 1 month #60 tabs 10/25/23 Unknown Rx azithromycin 250 mg tablet 250 mg PO DAILY 01/12/24 Unknown History azithromycin 500 mg tablet 1,000 mg PO QWEEK 01/12/24 Unknown History Allergy/AdvReac Type Severity Reaction Status Date / Time No Known Allergies Allergy Verified 01/12/24 16:55 Family History (Reviewed 10/16/23 @ 13:08 by Phyllis Solis [employer], [employer] TE[employer]ER-C) Mother Diabetes Hypertension Kidney disease Heart failure Father CVA (cerebral vascular accident) Hypertension Heart disease ischemic Brother Diabetes Surgical History History of thyroidectomy History of cardiac catheterization Hx of colonoscopy History of thyroidectomy History of exploratory laparotomy Presence of tracheostomy History of laryngectomy (2007) Social History household members: spouse housing: house Smoking Status: Former smoker Smokeless tobacco user: snuff how long ago did patient quit smokin years ago alcohol intake: never substance use type: does not use caffeine: Yes what type of physical activity do you participate in: none frequency: does not exercise EXAM Physical Exam Const Vital Signs: 01/12/24 16:56 01/12/24 16:58 01/12/24 17:42 Temperature 99.3 F H 99.5 F H Temperature Source Oral Oral Pulse Rate 98 98 99 Respiratory Rate 28 H 24 H 20 H Respiratory Effort Respiratory Pattern Blood Pressure 152/75 H 176/89 H Blood Pressure Mean 100 118 Pulse Ox 95 100 Oxygen Delivery Method Room Air Venturi Mask Oxygen Flow Rate (L/min) 01/12/24 17:44 01/12/24 17:45 01/12/24 17:58 Temperature 99.5 F H Temperature Source Oral Pulse Rate 109 H Respiratory Rate 34 H Respiratory Effort Short of Breath Respiratory Pattern Tachypnea Blood Pressure 152/97 H Blood Pressure Mean 115 Pulse Ox 100 97 Oxygen Delivery Method Venturi Mask Venturi Mask Venturi Mask Oxygen Flow Rate (L/min) 4 01/12/24 18:00 01/12/24 19:24 01/12/24 20:33 Temperature 99.5 F H 100.2 F H 100.2 F H Temperature Source Oral Oral Pulse Rate 108 H 103 H 103 H Respiratory Rate 31 H 22 H 22 H Respiratory Effort Respiratory Pattern Blood Pressure 152/97 H 172/90 H 172/90 H Blood Pressure Mean 115 117 117 Pulse Ox 98 97 97 Oxygen Delivery Method Venturi Mask Venturi Mask Oxygen Flow Rate (L/min) 4 4 MDM MDM MDM Narrative Medical decision making narrative: 68-year-old male with history of atrial fibrillation on Eliquis, CHF, HTN, status post tracheostomy due to cancer on 3 L baseline, COPD presents for evaluation of multiple complaints including shortness of breath, bilateral lower extremity swelling, generalized weakness, nausea, swelling to the right hand. Differential diagnosis includes but is not limited to pneumonia, viral illness, electrolyte abnormality, CHF, ACS, UTI, cellulitis, PE. DuoNeb treatments, Zofran, NS bolus ordered. EKG reviewed see below. CBC with a leukocytosis of 12.9. Hemoglobin at baseline anemia. VBG without hypercapnia. CMP with baseline renal insufficiency. No transaminitis. Lipase unremarkable. BNP mildly elevated at 106. D-dimer elevated at 1.58. Cannot rule out PE. CTA chest ordered. Troponin at baseline. UA negative for UTI. CTA chest negative for PE. Patient does have interstitial pleural thickening of the left lung base with superimposed infiltrate suspected. Stable fat-containing adrenal masses consistent with bilateral adrenal myolipoma's. Rocephin and azithromycin ordered for pneumonia. Patient will warrant admission. Patient was updated on the results and recommended surgical plan. Hospitalist accepted admission. EKG: Interpreted by me/EM physician: EKG shows normal sinus rhythm. Heart rate 96. No ST elevation. Diagnostic: Interpreted by me/EM physician: Bilateral atelectasis with possible consolidation on the left. Worse from previous EKG. Impression: 1. Pneumonia 2. Mild CHF exacerbation 3. Mild right hand cellulitis 4. Generalized weakness 5. Renal insufficiency 6. Chronic anemia Lab Data Labs: Laboratory Results - last 24 hr 01/12/24 01/12/24 17:20 19:30 WBC 12.9 H RBC 3.66 L Hgb 10.6 L Hct 32.8 L MCV 89.6 MCH 29.0 MCHC 32.3 RDW Std Deviation 40.5 RDW Coeff of Alisson 12.4 Plt Count 305 MPV 10.1 Immature Gran % (Auto) 0.300 Neut % (Auto) 87.5 H Lymph % (Auto) 3.6 L [place] % (Auto) 8.4 Eos % (Auto) 0.0 Baso % (Auto) 0.2 Absolute Neuts (auto) 11.3 H Absolute Lymphs (auto) 0.46 L Nucleated RBC % 0 PT 15.0 H INR 1.2 APTT 32.0 D-Dimer Quant (PE/DVT) 1.58 H* Sodium 138 Potassium 3.8 Chloride 102 Carbon Dioxide 28.0 Anion Gap 8 BUN 29 H Creatinine 1.33 H Estim Creat Clear Calc 69.43 Est GFR (MDRD) Af Amer 69 Est GFR (MDRD) Non-Af 57 L BUN/Creatinine Ratio 21.8 H Glucose 137 H Lactic Acid 0.7 Calcium 8.8 Total Bilirubin 0.70 AST 21 ALT 21 Alkaline Phosphatase 117 Troponin I High Sens 31 B-Natriuretic Peptide 106.7 H Total Protein 7.0 Albumin 3.0 L Globulin 4.0 Albumin/Globulin Ratio 0.8 L Lipase 23 Folate 24.80 TSH 3.800 H Urine Color Yellow Urine Clarity Clear Urine pH 6.0 Ur Specific [place] 1.015 Urine Protein 500 H Urine Glucose (UA) 1000 H Urine Ketones 15 H Urine Occult Blood 10 H Urine Nitrite Negative Urine Bilirubin Negative Urine Urobilinogen Normal Ur Leukocyte Esterase Negative Urine RBC 0-5 SEEN Urine WBC 0-5 SEEN Ur Squamous Epith Cells 0-5 SEEN Urine Bacteria RARE Urine Mucus 0 SEEN ABG Data ABG results: ABG 01/12/24 17:53 Specimen Type MAGGIE Sample Site Not entered O2 % 7.0 VBG pH 7.40 VBG pO2 97 H VBG HCO3 27 H VBG Total CO2 28 VBG O2 Sat (Calc) 98 H VBG Base Excess 2 POC Mix VBG pCO2 Pt Tmp 42.4 O2 Delivery Device Cannula Radiography Diagnostic Testing: Clinical Impression(s) from Imaging Studies Chest X-Ray 01/12/24 18:22 IMPRESSION: 1. Stable borderline cardiomegaly without evidence of acute congestive failure. 2. Atelectasis and small amount pleural fluid versus pleural thickening at the LEFT base. Mild atelectasis at the RIGHT base. Electronically Signed: Fuentes Guan MD at 19:01 EST , Chest CTA 01/12/24 18:43 IMPRESSION: undefined Discharge Plan Disposition Disposition: Acute Care Hospital [facility] Discharge Date/Time: 01/12/24 21:36
[2024-01-12 17:47] LABS: Absolute Lymphocyte Count 0.46 X10^3/uL (0.83-4.51); Absolute Neutrophil Count 11.3 X10^3/uL (2.0-7.7); Basophil# 0.02 X10^3/uL; Basophil% 0.2 % (0-1); Hematocrit 32.8 % (40-54); Hemoglobin 10.6 g/dL (13.0-16.5); Lymphocyte # 0.46 X10^3/ul (0.83-4.51); Lymphocyte % 3.6 % (19-41); Mean Corp Hgb Conc 32.3 g/dL (32-36); Mean Corpuscular Volume 89.6 fL (80-94); Mean Platelet Vol. 10.1 fl (6.2-12.0); Monocyte# 1.09 X10^3/uL; Monocyte% 8.4 % (0-10); NRBC Flagged by Analyzer 0 % (0-5); Neutrophil # 11.31 X10^3/uL (2.7-7.7); Neutrophil % 87.5 % (47-70); POSITIVE DIFFERENTIAL YES; Platelet Count 305 K/mm3 (150-450); RBC Distribution Width CV 12.4 % (11.6-14.6); RBC Distribution Width SD 40.5 fl (35.1-43.9); Red Blood Count 3.66 M/mm3 (4.6-6.2); White Blood Count 12.9 K/mm3 (4.4-11.0)
[2024-01-12 17:50] LABS: International Normalized Ratio 1.2
[2024-01-12 17:53] LABS: Lactic Acid 0.7 mmol/L (0.4-1.9)
[2024-01-12 17:56] LABS: Blood Gas Specimen Type VEN; O2 Delivery Device Cannula; SITE Not entered; VBG BASE EXCESS 2 mmol/L (-1.0-3.5); VBG Bicarbonate 27 mmol/L (22-26); VBG PO2 97 mmHg (25-40); VBG SO2 98 % (50-70); VBG TCO2 28 mmol/L (23-33); VBG pCO2 42.4 mmHg (41-51)
[2024-01-12 18:01] LABS: ALB/GLOB Ratio 0.8 RATIO (0.9-2.4); AST(SGOT) 21 U/L (15-37); Alanine Aminotransfer ALT/SGPT 21 U/L (16-61); Alkaline Phosphatase 117 U/L (45-117); Anion Gap 8 (5-15); BUN 29 mg/dL (7-18); BUN/Creat Ratio 21.8 RATIO (10-20); Calcium,Total 8.8 mg/dL (8.5-10.1); Chloride 102 mmol/L (98-107); Creatinine, Serum 1.33 mg/dL (0.70-1.30); EST Glomerular Filtration Rate 57 mL/min (>60); Est Glom Filt Rate - Afr Amer 69 mL/min (>60); Estimated Creatinine Clearance 69.43 ml/min; Glucose 137 mg/dL (74-106); Lipase 23 U/L (13-75); Potassium 3.8 mmol/L (3.5-5.1); Sodium Level 138 mmol/L (136-145); Troponin-I HS 31 pg/mL (3.0-78.0)
[2024-01-12 18:16] LABS: BNP,B-Type NATRIURETIC PEPTIDE 106.7 pg/mL (0-100)
[2024-01-12 18:22] LABS: D-Dimer Quantitative (DVT/PE) 1.58 FEU/ug/m (0.27-0.49)
--- NOTE | 2024-01-12 18:22 | RAD_ITS ---
INDICATION: Shortness of breath EXAMINATION/TECHNIQUE: X-RAY - XR Chest 2 Views COMPARISON: 10/01/2023 FINDINGS: LIFE-SUPPORT AND LINES: 1. None HEART AND VESSELS: Cardiac silhouette is upper limit of normal without change. No evidence of congestive failure LUNGS AND PLEURAL SPACES: Persistent mild volume loss and atelectasis in pleural thickening versus small pleural effusion on the LEFT. Mild atelectasis in the medial aspect of the RIGHT lung base. No pulmonary mass is noted. MEDIASTINUM AND HILAR REGIONS: No masses adenopathy noted. No areas of calcification. Visualized upper airway is normal in position. BONY ELEMENTS: No acute bony changes noted. RAD/Chest PA and Lateral IMPRESSION: 1. Stable borderline cardiomegaly without evidence of acute congestive failure. 2. Atelectasis and small amount pleural fluid versus pleural thickening at the LEFT base. Mild atelectasis at the RIGHT base. Electronically Signed: Fuentes Guan MD at 19:01 EST ,
--- NOTE | 2024-01-12 18:43 | CT_ITS ---
STUDY: CTA CHEST REASON FOR EXAM: Male, 68 years old. Assess for PE RADIATION DOSAGE (If Supplied By Facility): CTDIvol = ( 22.17 ) mGy, DLP = ( 624.15 ) mGycm TECHNIQUE: The examination was performed with the intravenous administration of IV 100mL Isovue-370. Post-processing of the angiographic images was performed, with multiplanar reformation and 3D reconstruction. Individualized dose optimization techniques were used for this CT. COMPARISON: None. FINDINGS: Tubes and lines: 1. No life-support noted. CTA: PULMONARY ARTERIES: There is normal configuration and contrast opacification of pulmonary outflow tract, main pulmonary arteries, segmental and intersegmental pulmonary arteries bilaterally without evidence of intraluminal filling defects. AORTIC ARCH: The aortic arch and descending aorta have normal configuration. No evidence of dissection or aneurysmal dilatation. HEART: Cardiac contour is normal. No evidence pericardial effusion. Extensive coronary vascular calcifications. CT CHEST: LUNGS: [Chronic pleural and interstitial thickening at the lung bases greater on LEFT than RIGHT. Superimposed subtle infiltrate at LEFT base is a consideration.. No mass. No consolidation. PLEURAL SPACES: Unremarkable, no effusion or pneumothorax.. MEDIASTINUM AND LYMPH NODES: Unremarkable. No significant adenopathy. BONES: Unremarkable ABDOMEN: Multiple adrenal nodules are again noted bilaterally with predominant low density at, consistent with stable myelolipomas. Other: None IMPRESSIONS: 1. No CTA evidence of pulmonary embolism. 2. No CTA evidence of aortic aneurysm or dissection 3. Normal CT appearance of the heart and pericardium. Extensive coronary vascular calcifications. 4. Interstitial and pleural thickening at the LEFT lung base with superimposed infiltrate suspected. No airspace consolidation. 5. Stable fat-containing adrenal masses consistent with bilateral adrenal myelolipomas. Electronically Signed: Fuentes Guan MD at 20:06 EST , CT/CTA Chest W/WO Contrast IMPRESSION: undefined
[2024-01-12 19:36] LABS: Mucous, Urine 0 SEEN /hpf (<or=2+)
[2024-01-12 19:44] LABS: Color, Urine Yellow (Yellow); Glucose, Dipstick 1000 mg/dl (Normal); Ketone-Dipstick 15 mg/dl (Negative); Leukocyte Esterase-Dipstick Negative /ul (Negative); Nitrite-Dipstick Negative (Negative); Occult Blood-Urine 10 /ul (Negative); Protein-Dipstick 500 mg/dl (Negative); Specific Gravity, Urine 1.015 (1.002-1.030); Urine Bilirubin Dipstick Negative (Negative); Urine Clarity Clear (Clear); Urine Urobilinogen Normal (Normal)
[2024-01-12 19:53] LABS: Bacteria RARE /hpf (None Seen); Red Blood Cells-Urine 0-5 SEEN /hpf (0-5); White Blood Cells 0-5 SEEN /hpf (0-5)
[2024-01-12 19:54] LABS: Squamous Epithelial Cells - UA 0-5 SEEN /hpf (0-5)
[2024-01-12] MEDS: Acetaminophen 500 MG Tablet 1000 MG PO (20:21)
[2024-01-12] MEDS: Ceftriaxone 1 GM/50 ML BAG IV (20:38)
--- NOTE | 2024-01-12 20:44 | HP.PCM.HOS_ITS ---
[facility] General Date of Admission: 01/12/24 Date of Service: 01/12/24 Chief Complaint: SOB. [facility] Narrative ABDIEL CORTEZ, is a 68 M with a past medical history of essential hypertension; on amlodipine, hyperlipidemia; on atorvastatin, hypothyroidism; with history of thyroidectomy on levothyroxine, obesity; with BMI of 36.3 this admission, DM-2; uncontrolled with hyperglycemia on Jardiance and Ozempic plus lispro insulin 10 U TID, history of tobacco abuse (quit ~12 year ago); with subsequent COPD, chronic hypoxic respiratory failure; on ~3-4L NC nocturnally, chronic atrial fibrillation; on Eliquis, chronic diastolic CHF; with preserved LVEF on furosemide, history of Laryngeal cancer; s/p laryngectomy (2007) with previous tracheostomy and with no chemo or radiation given, history of recurrent pleural effusion of LLL; requiring drainage, CKD; stage IIIa, SOCRATES, history of migraine headaches, depression with anxiety; on buspirone, history of exploratory laparotomy, GERD; with hiatal hernia and esophageal dysmotility on daily omeprazole, history of colonic diverticulosis, history of colon polyps, gout, OA; with chronic pain syndrome on prn Tramadol who typically ambulates with a cane and recent admission here from October 01, 2023 to October 03, 2023 for treatment of AE COPD complicated by symptomatic bradycardia suspected to be due to adverse drug reaction to sotalol compounded by mild AE of chronic diastolic CHF; with preserved LVEF with BNP of 602.1 pg/mL present on that admission causing [id number] respiratory insufficiency who presents to [facility] ER complaining of SOB, wheezing and cough. Mr. Cortez reports his symptoms began approximately 3 days prior to admission with a gradual-onset of dyspnea on exertion that progressed to shortness of breath at rest. He also admits to increasing ~2+ bilateral lower extremity pitting edema up to the mid-calf region bilaterally in spite of taking his Lasix as prescribed. He denies gaining water weight but he does endorse cough and nausea but he denies vomiting. He also denies associated fever, chills, diarrhea, constipation, dysuria, hematuria or recent trauma but he does admit to decreased appetite from nausea with his BMI last admission of 45 now dropping to 36.3 in the past ~3.5 months. In the ER he was noted to have radiographic evidence on his CTA of the chest revealing a Left Lower Lobe infiltrate consistent with suspected Pneumonia with corresponding leukocytosis of 12.9 K and fever of 100.2 ?F present on admission along with an elevated D-dimer of 1.58 (with no evidence of PE and patient already on Eliquis) and a mildly elevated BNP of 106.7 pg/mL present on admission not worrisome for AE CHF compounded by Uncontrolled Hypertension of 176/89 mmHg noted shortly after admission and he was then admitted to the PCU for ongoing care for stay that is expected to extend beyond 2 midnights. [facility] Medical History (Updated 01/13/24 @ 06:[address] Himanshu Bermeo, DO) Respiratory insufficiency Adverse drug reaction Symptomatic bradycardia Sinus bradycardia Hypoxia Anticoagulant long-term use COPD exacerbation Pleural effusion on left Acute exacerbation of CHF (congestive heart failure) Kidney disease COPD (chronic obstructive pulmonary disease) Atrial fibrillation BPH (benign prostatic hyperplasia) Anxiety and depression Stage 3a chronic kidney disease (CKD) Atrial fibrillation Obesity Tracheostomy in place Anticoagulant long-term use Chronic a-fib Recurrent left pleural effusion Chronic pain (HFpEF) heart failure with preserved ejection fraction Wears glasses Walker as ambulation aid Ambulates with cane Injury of back Migraine headache Gastric reflux Former smoker On home oxygen therapy Emphysema, unspecified Obesity Chronic renal failure, stage 3 (moderate) Laryngeal cancer Gastroenteritis Diabetes mellitus, type II Malignant neoplasm of head, neck and face History of colon polyps Gout Hyperlipidemia Hiatal hernia Esophageal dysmotility Diverticulosis of colon (without mention of hemorrhage) Benign neoplasm of colon Atherosclerosis of coronary artery of [place] heart without angina pectoris Essential hypertension Hypothyroidism COPD (chronic obstructive pulmonary disease) Home Medications ?Medication ?Instructions ?Recorded ?Last Taken ?Type levothyroxine 150 mcg tablet 150 mcg PO DAILY hypothyroidism 06/04/14 11/13/22 History atorvastatin 40 mg tablet 40 mg PO DAILY@1700 cholesterol 04/12/17 11/12/22 History ipratropium 0.5 mg-albuterol 3 mg 3 ml inhalation Q4H sob 04/12/17 11/13/22 History (2.5 mg base)/3 mL nebulization soln flash glucose sensor (FreeStyle #2 ea 05/17/21 Unknown Rx Zayra 2 Sensor kit) acetaminophen 325 mg tablet 650 mg PO DAILY PRN Pain 12/06/21 11/13/22 History budesonide 0.5 mg/2 mL suspension 0.5 mg inhalation BID sob 12/06/21 11/10/22 History for nebulization (Pulmicort) ferrous sulfate 325 mg (65 mg 325 mg PO DAILY iron 08/29/22 11/13/22 History iron) tablet (FeroSul) potassium chloride 10 mEq 20 meq PO DAILY mineral 11/13/22 11/13/22 History capsule,extended release pen needle, diabetic 32 gauge x #100 ea 06/22/23 Unknown Rx 04/20 amlodipine 5 mg tablet 5 mg PO DAILY #90 tabs 09/17/23 Unknown Rx apixaban 5 mg tablet (Eliquis) 5 mg PO BID blood thinner #180 tabs 09/20/23 Unknown Rx buspirone 7.5 mg tablet 7.5 mg PO TID PRN PRN anxiety 10/01/23 Unknown History cyanocobalamin (vitamin B-12) 500 500 mcg PO DAILY 10/01/23 Unknown History mcg tablet empagliflozin 10 mg tablet 10 mg PO DAILY 10/01/23 Unknown History (Jardiance) insulin lispro 100 unit/mL 10 unit subcut TID 10/01/23 Unknown History subcutaneous pen omeprazole 20 mg capsule,delayed 20 mg PO DAILY 10/01/23 Unknown History release semaglutide 2 mg/dose (8 mg/3 mL) 2 mg subcut .COMPLEX diabetes 10/01/23 Unknown History subcutaneous pen injector (Ozempic) furosemide 40 mg tablet 40 mg PO BID EDEMA 1 month #60 tabs 10/25/23 Unknown Rx azithromycin 250 mg tablet 250 mg PO DAILY 01/12/24 Unknown History azithromycin 500 mg tablet 1,000 mg PO QWEEK 01/12/24 Unknown History Allergy/AdvReac Type Severity Reaction Status Date / Time No Known Allergies Allergy Verified 01/12/24 16:55 Family History Mother Diabetes Hypertension Kidney disease Heart failure Father CVA (cerebral vascular accident) Hypertension Heart disease ischemic Brother Diabetes Surgical History (Updated 01/13/24 @ 06:[address] 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 Eyes: Patient denies blurry vision or discharge from eyes. ENT: Patient denies runny nose, sore throat or ear pain. Resp: Patient admits to shortness of breath and cough as per HPI. CV: Patient denies chest pain, palpitations or heart racing. GI: Patient admits to nausea with decreased oral intake as per HPI. He denies abdominal pain, vomiting, constipation or diarrhea. : Patient denies dysuria or hematuria. MSK: Patient admits to generalized weakness but he denies arthralgias or myalgias. Skin: Patient denies rash, abscess or jaundice. Psych: Patient denies symptoms of uncontrolled depression or anxiety. Neuro: Patient denies headache, paresthesias or focal neurologic deficits. Allergy: Patient denies lip swelling, tongue swelling or urticaria. Hematology: Patient denies easy bleeding or easy bruisability. Endocrinology: Patient denies polyuria, polydipsia or polyphagia. 14 point review of systems otherwise negative except for positives noted above in HPI. Vital Signs Vital Signs Vital Signs: 01/12/24 16:56 01/12/24 16:58 01/12/24 17:42 Temperature 99.3 F H 99.5 F H Temperature Source Oral Oral Pulse Rate 98 98 99 Respiratory Rate 28 H 24 H 20 H Respiratory Effort Respiratory Pattern Blood Pressure 152/75 H 176/89 H Blood Pressure Mean 100 118 Pulse Ox 95 100 Oxygen Delivery Method Room Air Venturi Mask Oxygen Flow Rate (L/min) 01/12/24 17:44 01/12/24 17:45 01/12/24 17:58 Temperature 99.5 F H Temperature Source Oral Pulse Rate 109 H Respiratory Rate 34 H Respiratory Effort Short of Breath Respiratory Pattern Tachypnea Blood Pressure 152/97 H Blood Pressure Mean 115 Pulse Ox 100 97 Oxygen Delivery Method Venturi Mask Venturi Mask Venturi Mask Oxygen Flow Rate (L/min) 4 01/12/24 18:00 01/12/24 19:24 01/12/24 20:33 Temperature 99.5 F H 100.2 F H 100.2 F H Temperature Source Oral Oral Pulse Rate 108 H 103 H 103 H Respiratory Rate 31 H 22 H 22 H Respiratory Effort Respiratory Pattern Blood Pressure 152/97 H 172/90 H 172/90 H Blood Pressure Mean 115 117 117 Pulse Ox 98 97 97 Oxygen Delivery Method Venturi Mask Venturi Mask Oxygen Flow Rate (L/min) 4 4 Weight Weight: 259 lb 14.8 oz Body Mass Index (BMI) 36.2 Physical Exam Const alert, oriented x3 and no apparent distress Constitutional Narrative: Patient is obese with disheveled and chronically ill appearance. General Appearance: cooperative HEENT normocephalic, head/scalp atraumatic and hearing grossly normal bilaterally HEENT Narrative: Mucous membranes dry with tracheostomy stoma noted. Eyes PERRL and EOMs intact bilaterally Neck no lymphadenopathy and supple Resp Resp Narrative: Diminished breath sounds throughout with scattered rhonchi. Auscultation: rhonchi Cardio regular rate and regular rhythm GI normal to inspection, nondistended, normoactive bowel sounds, soft to palpation, non-tender and non-distended GI Narrative: Obese. Extremity Extremity Narrative: 2+ bilateral symmetrical pitting edema up to the mid-calf region with no signs of erythema or TTP. Skin Skin Narrative: 2+ bilateral symmetrical pitting edema up to the mid-calf region with no signs of erythema or TTP. Neuro oriented x3, CN's II-XII intact bilaterally, moves all extremities and no focal motor deficits Sensorium / Orientation: awake, alert, oriented to person, oriented to place and oriented to time Speech: speech normal Psych affect normal Results Medical Records Data Attestation: I reviewed the patient's medical records Lab / Micro Data Attestation: I reviewed the patient's lab results. 01/12/24 17:20 01/12/24 17:20 Labs: Laboratory Results - last 24 hr 01/12/24 17:20: WBC 12.9 H, RBC 3.66 L, Hgb 10.6 L, Hct 32.8 L, MCV 89.6, MCH 29.0, MCHC 32.3, RDW Std Deviation 40.5, RDW Coeff of Alisson 12.4, Plt Count 305, MPV 10.1, Immature Gran % (Auto) 0.300, Neut % (Auto) 87.5 H, Lymph % (Auto) 3.6 L, [place] % (Auto) 8.4, Eos % (Auto) 0.0, Baso % (Auto) 0.2, Absolute Neuts (auto) 11.3 H, Absolute Lymphs (auto) 0.46 L, Nucleated RBC % 0, PT 15.0 H, INR 1.2, APTT 32.0, D-Dimer Quant (PE/DVT) 1.58 H*, Sodium 138, Potassium 3.8, Chloride 102, Carbon Dioxide 28.0, Anion Gap 8, BUN 29 H, Creatinine 1.33 H, Estim Creat Clear Calc 69.43, Est GFR (MDRD) Af Amer 69, Est GFR (MDRD) Non-Af 57 L, B UN/Creatinine Ratio 21.8 H, Glucose 137 H, Lactic Acid 0.7, Calcium 8.8, Total Bilirubin 0.70, AST 21, ALT 21, Alkaline Phosphatase 117, Troponin I High Sens 31, B-Natriuretic Peptide 106.7 H, Total Protein 7.0, Albumin 3.0 L, Globulin 4.0, Albumin/Globulin Ratio 0.8 L, Lipase 23 01/12/24 19:30: Urine Color Yellow, Urine Clarity Clear, Urine pH 6.0, Ur Specific Devine 1.015, Urine Protein 500 H, Urine Glucose (UA) 1000 H, Urine Ketones 15 H, Urine Occult Blood 10 H, Urine Nitrite Negative, Urine Bilirubin Negative, Urine Urobilinogen Normal, Ur Leukocyte Esterase Negative, Urine RBC 0-5 SEEN, Urine WBC 0-5 SEEN, Ur Squamous Epith Cells 0-5 SEEN, Urine Bacteria RARE, Urine Mucus 0 SEEN Micro: Microbiology 01/12/24 17:47 Mucosa - Nose SARS-CoV-2, Influenza & RSV (PCR) - Final ABG Data ABG results: ABG 01/12/24 17:53 Specimen Type MAGGIE Sample Site Not entered O2 % 7.0 VBG pH 7.40 VBG pO2 97 H VBG HCO3 27 H VBG Total CO2 28 VBG O2 Sat (Calc) 98 H VBG Base Excess 2 POC Mix VBG pCO2 Pt Tmp 42.4 O2 Delivery Device Cannula Imaging Radiology Impression Chest X-Ray 01/12/24 18:22 IMPRESSION: 1. Stable borderline cardiomegaly without evidence of acute congestive failure. 2. Atelectasis and small amount pleural fluid versus pleural thickening at the LEFT base. Mild atelectasis at the RIGHT base. Electronically Signed: Fuentes Guan MD at 19:01 EST , Chest CTA 01/12/24 18:43 IMPRESSION: undefined Assessment & Plan Assessment/Plan (1) Pneumonia: QUALIFIERS: Pneumonia type: due to unspecified organism L aterality: left Lung location: lower lobe of lung Qualified Code(s): J18.9 - Pneumonia, unspecified organism (2) Acute exacerbation of CHF (congestive heart failure): QUALIFIERS: Heart failure type: diastolic Qualified Code(s): I 50.33 - Acute on chronic diastolic (congestive) heart failure (3) Uncontrolled hypertension: (4) Respiratory insufficiency: (5) History of laryngeal cancer: (6) History of tracheostomy: (7) Obesity (BMI 30-39.9): (8) Chronic atrial fibrillation: PLAN: Plan 1. CTA of the chest revealing a Left Lower Lobe infiltrate consistent with suspected Pneumonia with corresponding leukocytosis of 12.9 K and fever of 100.2 ?F present on admission along with an elevated D-dimer of 1.58 (with no evidence of PE and patient already on Eliquis) - Admit to PCU. Continue treatment with IV Zosyn and IV Vancomycin in this patient with COPD and await culture and sensitivity. Check urinary antigens to Streptococcus pneumonia and Legionella. Give Tylenol as needed pain or fever. 2. Mildly elevated BNP of 106.7 pg/mL present on admission consistent with mild AE of chronic diastolic CHF; with preserved LVEF with confirmatory 2+ bilateral pitting symmetrical lower extremity edema up to the mid-calf region with associated Uncontrolled Hypertension of 176/89 mmHg noted shortly after admission complicating #1 - Give Lasix IV plus continue amlodipine as previous. Give Hydralazine IV prn for systolic blood pressure > 160 mmHg. 3. History of tobacco abuse (quit ~12 year ago); with subsequent COPD, chronic hypoxic respiratory failure; on ~3-4L NC nocturnally compounding #1 & #2 - Patient is not wheezing so no steroids were given. Resume nebulizers and inhalers as previous. 4. History of Laryngeal cancer; s/p laryngectomy (2007) with previous tracheostomy and with no chemo or radiation given, history of recurrent pleural effusion of LLL; requiring drainage with recent admission here from October 01, 2023 to October 03, 2023 for treatment of AE COPD complicated by symptomatic bradycardia suspected to be due to adverse drug reaction to sotalol compounded by mild AE of chronic diastolic CHF; with preserved LVEF with BNP of 602.1 pg/mL present on that admission causing [id number] respiratory insufficiency adding to the medical complexity of #1 - #3 - Noted. 5. Obesity; with BMI of 36.3 this admission adding to the burden of disease outlined from #1 - #4 - Weight loss will be recommended. Check TSH. This complicates his case and may hamper recovery. 6. Hyperlipidemia; on atorvastatin - Maintain current regimen. 7. Hypothyroidism; with history of thyroidectomy on levothyroxine - Continue levothyroxine and check TSH. 8. DM-2; uncontrolled with hyperglycemia on Jardiance and Ozempic plus lispro insulin 10 U TID - ADA/cardiac diet. FSBS q. AC/HS plus SSI. Hold Jardiance and Ozempic but continue lispro insulin dose and schedule as before. 9. Chronic atrial fibrillation; on Eliquis - Continue Eliquis as previous. 10. CKD; stage IIIa - Stable. Check renal indices daily to ensure continued stability. 11. SOCRATES - Stable with hemoglobin of 10.6 g/dL present on admission. 12. History of migraine headaches - Noted with no complaints of headache at this time. 13. Depression with anxiety; on buspirone - Continue home regimen. 14. History of exploratory laparotomy - Noted. 15. GERD; with hiatal hernia and esophageal dysmotility on daily omeprazole - Resume PPI. 16. History of colonic diverticulosis - Noted. 17. History of colon polyps - Noted. 18. Gout - Stable with no evidence of acute flare at this time. 19. OA; with chronic pain syndrome on previously on prn Tramadol who typically ambulates with a cane - Noted. Restart prn Tramadol if needed. 20. DVT prophylaxis - Patient is on chronic Eliquis for #9 which will be continued. Total time: Approximately (but not less than) 75 minutes. Charges/Coding Visit Charges Inpatient E&M: 22331 Init Hosp L3
[2024-01-12] MEDS: Azithromycin 500 MG in Dextrose 5%-Water (250mL Bag) 250 ML 250 MG IV (21:04)
[2024-01-12 23:15] LABS: Bedside Glucose 136 mg/dL (74-106)
[2024-01-12] MEDS: Piperacil/Tazobactam 3.375 GM in 0.9% Normal Saline (50mL MB+) 50 ML IV (23:29)
[2024-01-12] MEDS: Vancomycin HCl 2,000 MG in 0.9% Normal Saline (500mL Bag) 500 ML 250 MG IV (23:38)
[2024-01-12] MEDS: Lactobacillis Acidophilus 1 CAP PO (23:40)
[2024-01-12] MEDS: Furosemide 40 MG Tablet PO (23:40)
[2024-01-12] MEDS: Atorvastatin Calcium 40 MG Tablet PO (23:41)
[2024-01-12] MEDS: APIXABAN 5 MG TABLET PO (23:42)
[2024-01-13] VITALS (11 sets, daily range): BP systolic 145–164; BP diastolic 71–81; PULSE 74–91; RESP 16–24; TEMP 36.8–37.5; O2SAT 95–100; BMI 36.3
--- NOTE | 2024-01-13 00:05 | PCM.RX.CS ---
Consult Antibiotic Management Pharmacy has been consulted to manage selected antibiotic: Vancomycin Type of Intervention Type of Consult: New start Labs Labs: Sodium 138 mmol/L (136-145) 01/12/24 17:20 Potassium 3.8 mmol/L (3.5-5.1) 01/12/24 17:20 Chloride 102 mmol/L (98-107) 01/12/24 17:20 Carbon Dioxide 28.0 mmol/L (21.0-32.0) 01/12/24 17:20 Anion Gap 8 (5-15) 01/12/24 17:20 BUN 29 mg/dL (7-18) H 01/12/24 17:20 Creatinine 1.33 mg/dL (0.70-1.30) H 01/12/24 17:20 Est GFR (MDRD) Af Amer 69 mL/min (>60) 01/12/24 17:20 Est GFR (MDRD) Non-Af 57 mL/min (>60) L 01/12/24 17:20 BUN/Creatinine Ratio 21.8 RATIO (10-20) H 01/12/24 17:20 Glucose 137 mg/dL (74-106) H 01/12/24 17:20 Microbiology Microbiology: Microbiology 01/12/24 19:30 Urine, Clean Catch Legionella Antigen - Final 01/12/24 17:47 Mucosa - Nose SARS-CoV-2, Influenza & RSV (PCR) - Final Dosing Weight Weight used for dosin kg Estimated Creatinine Clearance Estimated Creatinine Clearance: 69 Goal Trough Goal Trough: 15-20 mcg/mL Pharmacy Plan for Drug Dosing Pharmacy Plan for Drug Dosing: Pharmacy Service will continue to monitor and adjust dosing as required. Follow-Up Labs Follow-Up Labs: Trough: Vancomycin Date/Time Labs Ordered Labs to be done on [date and time ordered]: 01/14/24 @1100
[2024-01-13] MEDS: Acetaminophen 325 MG Tablet 650 MG PO ×3 (04:58→20:40)
[2024-01-13] MEDS: Piperacil/Tazobactam 3.375 GM in 0.9% Normal Saline (50mL MB+) 50 ML IV ×2 (04:59→14:27)
[2024-01-13] MEDS: Levothyroxine 150 MCG Tablet PO (05:01)
[2024-01-13] MEDS: Budesonide Respules 0.5 MG/2 ML AMPUL.NEB. INHALATION ×2 (05:19→19:09)
[2024-01-13] MEDS: Ipratropium/Albuterol Sulfate 3 ML AMPUL.NEB INHALATION ×5 (05:19→22:57)
[2024-01-13 06:01] LABS: Vitamin B12 259 pg/mL (211-911)
[2024-01-13 06:55] LABS: Bedside Glucose 136 mg/dL (74-106)
--- NOTE | 2024-01-13 07:10 | RAD_ITS ---
STUDY: X-RAY CHEST REASON FOR EXAM: Male, 68 years old. Fever and cough TECHNIQUE: PA and lateral views of the chest. COMPARISON: 01/12/2024 FINDINGS: EKG leads overlie the chest Lungs are mildly hyperexpanded with interstitial changes and bibasilar atelectasis in both lung pal, no significant interval change since the previous study. Stable borderline hepatomegaly. Normal mediastinum and laura. Normal visualized pulmonary arteries. Normal visualized aortic arch and descending thoracic aorta. There are diffuse degenerative changes of the visualized thoracic spine. There is degenerative osteoarthritis of the bilateral shoulders. There is no demonstrated abnormality of the visualized soft tissue structures of the upper abdomen. RAD/Chest PA and Lateral IMPRESSION: No interval change Electronically Signed: Roderick Tamayo MD at 8:26 EST ,
[2024-01-13] MEDS: Cyanocobalamin 500 MCG Tablet PO (08:02)
[2024-01-13] MEDS: Furosemide 40 MG Tablet PO (08:02)
[2024-01-13] MEDS: Potassium Chloride Oral Tablet 20 MEQ PO (08:02)
[2024-01-13] MEDS: APIXABAN 5 MG TABLET PO ×2 (08:02→20:40)
[2024-01-13] MEDS: Pantoprazole Sodium 20 MG Tablet PO (08:02)
[2024-01-13] MEDS: Lactobacillis Acidophilus 1 CAP PO ×4 (08:02→20:40)
[2024-01-13] MEDS: amLODIPine 5 MG Tablet PO (08:02)
[2024-01-13 08:40] LABS: Bedside Glucose 143 mg/dL (74-106)
[2024-01-13] MEDS: Vancomycin HCl 1,500 MG in 0.9% Normal Saline (500mL Bag) 500 ML 250 MG IV (11:39)
[2024-01-13] MEDS: Insulin Lispro 100 UNIT/ML INSULN.PEN SC ×3 (11:40→20:40)
[2024-01-13] MEDS: Ferrous Sulfate 325 MG Tablet PO (11:40)
[2024-01-13 12:05] LABS: Bedside Glucose 175 mg/dL (74-106)
[2024-01-13 13:22] LABS: Erythrocyte Sedimentation Rate 52 mm/hr (0-20)
--- NOTE | 2024-01-13 14:20 | RAD_ITS ---
EXAM: XR RIGHT HAND, 2 VIEWS CLINICAL INDICATION: PAIN, SWELLING TECHNIQUE: Frontal and lateral views of the right hand. COMPARISON: No relevant prior studies available. FINDINGS: BONES/JOINTS: Unremarkable. No acute fracture. No subluxation. Normal alignment. Preservation of the joint space. No sclerotic or destructive changes observed. SOFT TISSUES: Soft tissue swelling around the hand and first second and third digit. No radiopaque foreign body. VASCULATURE: Vascular calcifications. RAD/Hand 2 Views IMPRESSION: Soft tissue swelling around the hand and first second and third digit. Electronically Signed: Piter Weiss MD at 14:41 EST ,
--- NOTE | 2024-01-13 14:20 | RAD_ITS ---
EXAM: XR LEFT HAND, 2 VIEWS CLINICAL INDICATION: PAIN, SWELLING TECHNIQUE: Frontal and lateral views of the left hand. COMPARISON: No relevant prior studies available. FINDINGS: BONES/JOINTS: Unremarkable. No acute fracture. No subluxation. Normal alignment. Preservation of the joint space. No sclerotic or destructive changes observed. SOFT TISSUES: Soft tissue swelling around the hand and first second and third digit. No radiopaque foreign body. wedding band overlying the fourth digit. VASCULATURE: Vascular calcifications. RAD/Hand 2 Views IMPRESSION: Soft tissue swelling around the hand and first second and third digit. Electronically Signed: Piter Weiss MD at 14:42 EST ,
[2024-01-13] MEDS: metOLazone 5 MG Tablet PO (14:27)
--- NOTE | 2024-01-13 15:05 | PCM.PN.HOSP ---
Reason for Visit Reason for Visit: Diagnoses Obesity, unspecified (01/12/24) Essential (primary) hypertension (01/12/24) Chronic atrial fibrillation, unspecified (01/12/24) Acute on chronic diastolic (congestive) heart failure (01/12/24) Pneumonia, unspecified organism (01/12/24) Other abnormalities of breathing (01/12/24) Personal history of malignant neoplasm of larynx (01/12/24) Other specified postprocedural states (01/12/24) Subjective Subjective Patient was seen and examined today he was admitted yesterday for pneumonia, patient stated he came to the ER for treatment of generalized swelling in his arms and hands, he was subsequently diagnosed as having pneumonia. I have decided to stop the patient's vancomycin and Zosyn and place him on Levaquin. Objective Data Objective Data Vital Signs: Vital Signs Temp Pulse Resp BP Pulse Ox O2 Del Method O2 Flow Rate 98.3 F 81 18 164/74 H 95 Room Air 2 01/13/24 15:00 01/13/24 15:00 01/13/24 15:00 01/13/24 15:00 01/13/24 15:00 01/13/24 15:00 01/13/24 08:11 FiO2 40 01/12/24 23:05 Oxygen Flow Rate (L/min) 2 Oxygen Delivery Method Room Air Weight: 117.6 kg Body Mass Index (BMI) 36.3 Intake & Output: Intake and Output for Last 24 Hours 01/11/24 01/12/24 01/13/24 23:59 23:59 23:59 Intake Total 1305 / 1505 2370 / 2370 Output Total 800 / 800 Balance 1305 / 1505 1570 / 1570 Lab / Micro Data 01/12/24 17:20 01/12/24 17:20 Labs: Laboratory Results - last 24 hr 01/12/24 17:20: WBC 12.9 H, RBC 3.66 L, Hgb 10.6 L, Hct 32.8 L, MCV 89.6, MCH 29.0, MCHC 32.3, RDW Std Deviation 40.5, RDW Coeff of Alisson 12.4, Plt Count 305, MPV 10.1, Immature Gran % (Auto) 0.300, Neut % (Auto) 87.5 H, Lymph % (Auto) 3.6 L, [place] % (Auto) 8.4, Eos % (Auto) 0.0, Baso % (Auto) 0.2, Absolute Neuts (auto) 11.3 H, Absolute Lymphs (auto) 0.46 L, Nucleated RBC % 0, PT 15.0 H, INR 1.2, APTT 32.0, D-Dimer Quant (PE/DVT) 1.58 H*, Sodium 138, Potassium 3.8, Chloride 102, Carbon Dioxide 28.0, Anion Gap 8, BUN 29 H, Creatinine 1.33 H, Estim Creat Clear Calc 69.43, Est GFR (MDRD) Af Amer 69, Est GFR (MDRD) Non-Af 57 L, BUN/Creatinine Ratio 21.8 H, Glucose 137 H, Lactic Acid 0.7, Calcium 8.8, Total Bilirubin 0.70, AST 21, ALT 21, Alkaline Phosphatase 117, Troponin I High Sens 31, B-Natriuretic Peptide 106.7 H, Total Protein 7.0, Albumin 3.0 L, Globulin 4.0, Albumin/Globulin Ratio 0.8 L, Lipase 23, Folate 24.80, TSH 3.800 H 01/12/24 19:30: Urine Color Yellow, Urine Clarity Clear, Urine pH 6.0, Ur Specific Bricelyn 1.015, Urine Protein 500 H, Urine Glucose (UA) 1000 H, Urine Ketones 15 H, Urine Occult Blood 10 H, Urine Nitrite Negative, Urine Bilirubin Negative, Urine Urobilinogen Normal, Ur Leukocyte Esterase Negative, Urine RBC 0-5 SEEN, Urine WBC 0-5 SEEN, Ur Squamous Epith Cells 0-5 SEEN, Urine Bacteria RARE, Urine Mucus 0 SEEN 01/12/24 22:55: POC Glucose 136 H 01/13/24 05:11: Vitamin B12 259 01/13/24 06:37: POC Glucose 136 H 01/13/24 07:57: POC Glucose 143 H 01/13/24 11:38: POC Glucose 175 H 01/13/24 13:10: ESR 52 H, C-React Prot Ext Range 75.30 H Micro: Microbiology 01/13/24 05:45 Sputum, Tracheal Aspirate Gram Stain - Final 01/13/24 01:35 Mucosa - Nasopharyngeal Respiratory Panel (PCR) - Final 01/12/24 19:30 Urine, Clean Catch Streptococcus pneumoniae Antigen (M - Final 01/12/24 19:30 Urine, Clean Catch Legionella Antigen - Final 01/12/24 17:47 Mucosa - Nose SARS-CoV-2, Influenza & RSV (PCR) - Final ABG Data ABG results: ABG 01/12/24 17:53 Specimen Type MAGGIE Sample Site Not entered O2 % 7.0 VBG pH 7.40 VBG pO2 97 H VBG HCO3 27 H VBG Total CO2 28 VBG O2 Sat (Calc) 98 H VBG Base Excess 2 POC Mix VBG pCO2 Pt Tmp 42.4 O2 Delivery Device Cannula Radiography Diagnostic Testing: Radiology Impression Chest X-Ray 01/12/24 18:22 IMPRESSION: 1. Stable borderline cardiomegaly without evidence of acute congestive failure. 2. Atelectasis and small amount pleural fluid versus pleural thickening at the LEFT base. Mild atelectasis at the RIGHT base. Electronically Signed: Fuentes Guan MD at 19:01 EST , Chest CTA 01/12/24 18:43 IMPRESSION: undefined Chest X-Ray 01/13/24 07:10 IMPRESSION: No interval change Electronically Signed: Roderick Tamayo MD at 8:26 EST , Hand X-Ray 01/13/24 14:20 IMPRESSION: Soft tissue swelling around the hand and first second and third digit. Electronically Signed: Piter Weiss MD at 14:42 EST , Hand X-Ray 01/13/24 14:20 IMPRESSION: Soft tissue swelling around the hand and first second and third digit. Electronically Signed: Piter Weiss MD at 14:41 EST , Physical Exam Const alert, oriented x3 and no apparent distress General Appearance: cooperative, well kempt and well developed Orientation / Consciousness: awake, oriented to person, oriented to place and oriented to time HEENT normocephalic, head/scalp atraumatic and moist oral mucous membranes Head and Scalp: normocephalic Eyes PERRL, EOMs intact bilaterally and conjunctivae normal Neck supple and no JVD Neck Narrative: Patient has a tracheostomy in place Resp normal respiratory effort, no retractions, no use of accessory muscles and clear to auscultation bilaterally Auscultation: Negative for rales, rhonchi or wheezes Cardio regular rate, regular rhythm, S1 normal heart sound, S2 normal heart sound, no murmurs, no rub and no gallops GI normal to inspection, nondistended, normoactive bowel sounds, soft to palpation, non-tender and non-distended Extremity Extremity Narrative: Patient's hands are swollen bilaterally, he is unable to make a fist or straighten them out completely. There is generalized edema in the lower legs which is nonpitting. Skin no rashes or lesions noted General Skin Exam: no breakdown Neuro oriented x3, CN's II-XII intact bilaterally, moves all extremities, no focal motor deficits and no sensory deficits noted Sensorium / Orientation: awake and alert Speech: speech normal Psych affect normal Assessment & Plan Assessment/Plan (1) Pneumonia: QUALIFIERS: Pneumonia type: due to unspecified organism Laterality: left Lung location: lower lobe of lung Qualified Code(s): J18.9 - Pneumonia, unspecified organism PLAN: Plan 1. Community-acquired pneumonia-patient has very little signs or symptoms of pneumonia however, on the patient's CTA he does have an area at his left lung base where a superimposed infiltrate is suspected. I do not appreciate any abnormal breath sounds however at this area on auscultation. Patient's antibiotic coverage was changed to Levaquin, his Zosyn and vancomycin was stopped. #2 anasarca with extreme swelling in the patient's hands-I ordered x-rays on the patient's hands-there is no evidence of an arthritic process in the hands, only swelling was noted on the x-ray, I have converted the patient's Lasix over to IV Lasix and gave him a dose of Zaroxolyn today. #3 chronic hypoxic respiratory failure-patient states that he uses 2 L of oxygen at rest at home and 3 L on ambulation at home. #4 type 2 diabetes-patient's blood sugars will be monitored #5 chronic CHF with preserved ejection fraction-again patient will remain on Lasix at this time #6 coronary artery disease-stable at this time Total clinical time spent by myself addressing the patient's medical issues, reviewing all of his data, and collaborating with patient's care team: 35 minutes Charges/Coding Visit Charges Inpatient E&M: 54308 Subs Hosp L2
[2024-01-13] MEDS: Furosemide 40 MG/4 ML Vial IV (16:34)
[2024-01-13] MEDS: levoFLOXacin 750 MG Tablet PO (16:34)
[2024-01-13 16:59] LABS: Bedside Glucose 215 mg/dL (74-106)
[2024-01-13] MEDS: Atorvastatin Calcium 40 MG Tablet PO (20:40)
[2024-01-13 21:05] LABS: Bedside Glucose 175 mg/dL (74-106)
[2024-01-14] VITALS (12 sets, daily range): BP systolic 128–158; BP diastolic 69–75; PULSE 81–94; RESP 16–20; TEMP 36.9–37.4; O2SAT 97–100; BMI 36.1
[2024-01-14] MEDS: Ipratropium/Albuterol Sulfate 3 ML AMPUL.NEB INHALATION ×6 (02:17→23:00)
[2024-01-14] MEDS: Levothyroxine 150 MCG Tablet PO (06:34)
[2024-01-14] MEDS: levoFLOXacin 750 MG Tablet PO (06:34)
[2024-01-14 06:50] LABS: Bedside Glucose 141 mg/dL (74-106)
[2024-01-14] MEDS: Budesonide Respules 0.5 MG/2 ML AMPUL.NEB. INHALATION ×2 (06:56→19:07)
[2024-01-14] MEDS: Acetaminophen 325 MG Tablet 650 MG PO (07:30)
[2024-01-14] MEDS: 0.9% Saline Lock 10 ML Syringe IV ×2 (07:31→20:07)
[2024-01-14] MEDS: amLODIPine 5 MG Tablet PO (09:54)
[2024-01-14] MEDS: Potassium Chloride Oral Tablet 20 MEQ PO (09:54)
[2024-01-14] MEDS: Furosemide 40 MG/4 ML Vial IV (09:55)
[2024-01-14] MEDS: APIXABAN 5 MG TABLET PO ×2 (09:55→20:49)
[2024-01-14] MEDS: Pantoprazole Sodium 20 MG Tablet PO (09:55)
[2024-01-14] MEDS: Cyanocobalamin 500 MCG Tablet PO (09:55)
[2024-01-14] MEDS: Lactobacillis Acidophilus 1 CAP PO ×4 (09:55→20:50)
--- NOTE | 2024-01-14 10:15 | CASEMGMT ---
RN CM Face to Face with patient for initial transition planning/care coordination assessment. RN CM introduced self and role at [facility]. Patient lying in bed, alert and oriented. Patient willing to participate in assessment and is able to answer all questions appropriately. Care providers, pharmacy, and demographics verified. Strata: 3 PCP: January Specialists: Tessa Grace, founder chairman and chief creative officer; Raya, commercial illustrator; Eilo, certified scrum master Preferred Pharmacy: [facility] Insurance: [facility] Prescription Benefit: yes Living Will/HPOA: yes, Manuela Chow LNOK: , son Living Arrangements: Patient lives with and son in a single story home with 4 steps to enter. Patient states he is independent at home Transportation: self, DME/HHC: Patient states he has cane, walker, glucometer with supplies, nebulizer, pulse ox, and oxygen with portability through [employer]. No previous HHC or SNF Patient wishes to discharge home, denies need for home health at this time. Patient states he has no further needs or concerns at this time. CM to follow for discharge planning needs that may arise. Disposition Plan: Patient to discharge home with family support and follow-up plans in place. Hanna DURHAM, RN, CM
[2024-01-14] MEDS: Insulin Lispro 100 UNIT/ML INSULN.PEN SC ×3 (11:22→22:01)
[2024-01-14] MEDS: Ferrous Sulfate 325 MG Tablet PO (11:23)
[2024-01-14 11:43] LABS: Bedside Glucose 158 mg/dL (74-106)
[2024-01-14 14:23] LABS: Erythrocyte Sedimentation Rate 63 mm/hr (0-20)
[2024-01-14 14:25] LABS: Absolute Lymphocyte Count 0.52 X10^3/uL (0.83-4.51); Absolute Neutrophil Count 7.9 X10^3/uL (2.0-7.7); Basophil# 0.02 X10^3/uL; Basophil% 0.2 % (0-1); Eosinophil# 0.04 X10^3/uL; Eosinophils% 0.4 % (0-5); Hemoglobin 9.6 g/dL (13.0-16.5); Lymphocyte # 0.52 X10^3/ul (0.83-4.51); Lymphocyte % 5.4 % (19-41); Mean Corp Hgb Conc 33.1 g/dL (32-36); Mean Corpuscular Hgb 29.4 pg (27.0-32.0); Mean Corpuscular Volume 88.7 fL (80-94); Mean Platelet Vol. 9.7 fl (6.2-12.0); Monocyte# 1.11 X10^3/uL; Monocyte% 11.6 % (0-10); NRBC Flagged by Analyzer 0 % (0-5); Neutrophil # 7.85 X10^3/uL (2.7-7.7); Neutrophil % 81.8 % (47-70); POSITIVE DIFFERENTIAL YES; Platelet Count 306 K/mm3 (150-450); RBC Distribution Width CV 12.3 % (11.6-14.6); RBC Distribution Width SD 39.8 fl (35.1-43.9); Red Blood Count 3.27 M/mm3 (4.6-6.2); White Blood Count 9.6 K/mm3 (4.4-11.0)
[2024-01-14 14:27] LABS: Phosphorus 4.5 mg/dL (2.5-4.9)
[2024-01-14 14:31] LABS: ALB/GLOB Ratio 0.6 RATIO (0.9-2.4); AST(SGOT) 18 U/L (15-37); Alanine Aminotransfer ALT/SGPT 17 U/L (16-61); Albumin, Serum 2.6 g/dL (3.2-5.0); Alkaline Phosphatase 98 U/L (45-117); Anion Gap 6 (5-15); BUN 25 mg/dL (7-18); BUN/Creat Ratio 14.3 RATIO (10-20); Calcium,Total 8.9 mg/dL (8.5-10.1); Chloride 98 mmol/L (98-107); Creatinine, Serum 1.75 mg/dL (0.70-1.30); EST Glomerular Filtration Rate 41 mL/min (>60); Est Glom Filt Rate - Afr Amer 50 mL/min (>60); Estimated Creatinine Clearance 52.61 ml/min; Globulin 4.3 g/dL (2.2-4.2); Glucose 183 mg/dL (74-106); Potassium 3.3 mmol/L (3.5-5.1); Protein, Total 6.9 g/dL (6.4-8.2); Sodium Level 135 mmol/L (136-145); Uric Acid 6.5 mg/dL (3.5-7.2)
--- NOTE | 2024-01-14 14:39 | CT_ITS ---
EXAM: CT RIGHT UPPER EXTREMITY WITHOUT INTRAVENOUS CONTRAST CLINICAL INDICATION: pain and swelling TECHNIQUE: Helically acquired images were obtained of the right upper extremity without intravenous contrast. 2-D reformats were performed by the technologist. This CT exam was performed using one or more of the following dose reduction techniques: automated exposure control, adjustment of the mA and/or kV according to patient size, and/or use of iterative reconstruction technique. COMPARISON: No relevant prior studies available. FINDINGS: BONES/JOINTS: Small elbow joint effusion. Mild narrowing of the elbow joint. Mild enthesopathy along the coronoid process of the ulna. SOFT TISSUES: Extensive soft tissue edema of the medial and posterior aspect of the forearm noted extending to the dorsum of hand. There is no localized collection to indicate an abscess. VASCULATURE: Diffuse arterial calcification. CT/Extremity Upper without Contra IMPRESSION: Diffuse soft tissue swelling without focal abscess. Elbow joint effusion. Electronically Signed: Manuel Calvin MD at 16:00 EST ,
[2024-01-14] MEDS: oxyCODONE 5 MG Tablet PO ×2 (16:00→20:48)
[2024-01-14] MEDS: Potassium Chloride Oral Tablet 20 MEQ 40 MEQ PO (16:00)
[2024-01-14 16:35] LABS: Bedside Glucose 176 mg/dL (74-106)
--- NOTE | 2024-01-14 19:27 | PN.HOSP_ITS ---
Reason for Visit Reason for Visit: R arm edema Subjective Subjective Patient states overall his breathing feels much better. Cultures do show a pneumonia. His biggest complaint is his pain in his right upper extremity along with swelling and decreased function of his right hand. He states the pain starts in his hand and is primarily worse over the dorsum of his hand but the pain extends up into his elbow. He does have elevation of his CRP and ESR but they are not markedly elevated as I would expect with an infected joint. He is currently been on Levaquin and seems to be improving from a respiratory standpoint however his arm is still affected. Vancomycin was initiated on admission but discontinued yesterday. He is frustrated as he came in with the arm pain and he states that it has been the least addressed issue during his hospital course. Objective Data Objective Data Vital Signs: Vital Signs Temp Pulse Resp BP Pulse Ox O2 Del Method O2 Flow Rate 99.4 F H 87 18 143/75 H 99 Trach Collar 10 01/14/24 15:51 01/14/24 19:08 01/14/24 19:08 01/14/24 15:51 01/14/24 15:51 01/14/24 15:51 01/14/24 15:51 FiO2 35 01/14/24 15:51 Oxygen Flow Rate (L/min) 10 Oxygen Delivery Method Trach Collar Weight: 117.2 kg Body Mass Index (BMI) 36.1 Intake & Output: Intake and Output for Last 24 Hours 01/12/24 01/13/24 01/14/24 23:59 23:59 23:59 Intake Total 1305 / 1505 2820 / 3120 1450 / 1450 Output Total 1500 / 2150 3050 / 3050 Balance 1305 / 1505 1320 / 970 -1600 / -1600 Lab / Micro Data 01/14/24 14:03 01/14/24 14:03 Labs: Laboratory Results - last 24 hr 01/13/24 20:38: POC Glucose 175 H 01/14/24 06:29: POC Glucose 141 H 01/14/24 11:21: POC Glucose 158 H 01/14/24 14:03: WBC 9.6, RBC 3.27 L, Hgb 9.6 L, Hct 29.0 L, MCV 88.7, MCH 29.4, MCHC 33.1, RDW Std Deviation 39.8, RDW Coeff of Alisson 12.3, Plt Count 306, MPV 9.7, Immature Gran % (Auto) 0.600, Neut % (Auto) 81.8 H, Lymph % (Auto) 5.4 L, M amena % (Auto) 11.6 H, Eos % (Auto) 0.4, Baso % (Auto) 0.2, Absolute Neuts (auto) 7.9 H, Absolute Lymphs (auto) 0.52 L, Nucleated RBC % 0, ESR 63 H, Sodium 135 L, Potassium 3.3 L, Chloride 98, Carbon Dioxide 31.0, Anion Gap 6, BUN 25 H, C reatinine 1.75 H, Estim Creat Clear Calc 52.61, Est GFR (MDRD) Af Amer 50 L, Est GFR (MDRD) Non-Af 41 L, BUN/Creatinine Ratio 14.3, Glucose 183 H, Uric Acid 6.5, Calcium 8.9, Phosphorus 4.5, Magnesium 2.0, Total Bilirubin 0.40, AST 18, ALT 17, Alkaline Phosphatase 98, C-React Prot Ext Range 78.20 H, Total Protein 6.9, Albumin 2.6 L, Globulin 4.3 H, Albumin/Globulin Ratio 0.6 L 01/14/24 16:04: POC Glucose 176 H Micro: Microbiology 01/13/24 05:45 Sputum, Tracheal Aspirate Gram Stain - Final 01/13/24 05:45 Sputum, Tracheal Aspirate Respiratory Culture - Preliminary Gram negative ady 01/13/24 01:35 Mucosa - Nasopharyngeal Respiratory Panel (PCR) - Final 01/12/24 19:30 Urine, Clean Catch Streptococcus pneumoniae Antigen (M - Final 01/12/24 19:30 Urine, Clean Catch Legionella Antigen - Final 01/12/24 17:47 Mucosa - Nose SARS-CoV-2, Influenza & RSV (PCR) - Final Radiography Diagnostic Testing: Radiology Impression Upper Extremity CT 01/14/24 14:39 IMPRESSION: Diffuse soft tissue swelling without focal abscess. Elbow joint effusion. Electronically Signed: Manuel Calvin MD at 16:00 EST Reading Location ID and State: [facility] / [place] Tel , Service support , Physical Exam Const alert, oriented x3, no apparent distress and well nourished; Negative for average body habitus or healthy appearing Constitutional Narrative: Obese, upper middle-aged, white male, appears older than stated age, sitting up in bed with trach mask in place, appears comfortable, nontoxic HEENT head/scalp atraumatic and moist oral mucous membranes HEENT Narrative: Mallampati 3, no thrush Head and Scalp: normocephalic Eyes PERRL and conjunctivae normal Eyes Narrative: No scleral icterus Neck no lymphadenopathy and supple Neck Narrative: Trachea is midline with tracheostomy tube in place, covered with trach mask Resp normal respiratory effort, no retractions, no use of accessory muscles and No clear to auscultation bilaterally Resp Narrative: Scattered coarseness bilateral lung pal, no wheeze or rhonchi, no crackles, no signs of respiratory extremis Auscultation: Negative for crackles, rhonchi or wheezes Cardio regular rate, regular rhythm, S1 normal heart sound, S2 normal heart sound, no murmurs, no rub, no gallops and no clicks GI normal to inspection, nondistended, normoactive bowel sounds, soft to palpation and non-tender GI Narrative: Large protuberant abdomen Extremity Extremity Narrative: Right upper extremity is tender, swollen-nonpitting, with decreased range of motion, radial pulses are good and there is good cap refill, no tingling or numbness present at signs of compartment syndrome, all other extremities appear to be within normal limits with mild chronic stable edema, no cyanosis or clubbing Neuro oriented x3, moves all extremities and no focal motor deficits Neuro Narrative: Speech is breathy due to tracheostomy but patient can speak over his trach would likely benefit from Passy-Picacho valve or capping if able to tolerate Speech: Negative for speech normal Psych affect normal Psych Narrative: Very pleasant, interacts appropriately, appropriately frustrated Assessment & Plan Assessment/Plan (1) Gram-negative pneumonia: (2) Edema of right upper extremity: (3) Effusion of elbow joint, right: PLAN: Plan Community-acquired pneumonia secondary to gram-negative ady -Agree with continuation of Levaquin -Await identification and sensitivities -Continue aerosols as ordered -Add incentive spirometry and Acapella -Continue supplemental oxygen with 2 L and wean as able -Current baseline is unclear -Patient is at risk for resistant organisms due to his chronic tracheostomy tube -Patient does have history of MDRO Right upper extremity edema -Etiology is unclear at this time -Uric acid was normal -ESR and CRP are elevated however this could be related to his pneumonia as well -Will broaden antibiotics to Levaquin and vancomycin -Check MRSA PCR -CT of the upper extremity did show an effusion at the elbow and marked soft tissue edema so we will try an arthrocentesis of the elbow to see if there is any signs of infection -Ordered for IR tomorrow -Vascular checks added due to marked amount of swelling -Add oxycodone as needed to help with pain related -Autoimmune panel pending Hypokalemia -P.o. potassium replacement -Recheck in a.m. -Check a.m. magnesium level CKD stage IIIa -Serum creatinine did trend up since yesterday with the initiation of diuretics -Discontinue diuretics for now and restart when renal function is closer to baseline -Repeat BMP in a.m. Chronic HFpEF due to diastolic dysfunction -Hold diuretics for now due to trending up of renal function -Reassess tomorrow and if improved or stabilized will reinitiate home Lasix at 40 p.o. twice daily -Diuresis has not really made any improvement in his right upper extremity swelling History of laryngeal cancer status post laryngectomy -# Chronic tracheostomy tube -Cancer currently in remission Essential hypertension/hyperlipidemia -Diuretics on hold -Continue home amlodipine -Continue home atorvastatin COPD -Continue home Pulmicort -Outpatient follow-up recommended -Does not appear patient is chronic oxygen dependent -Patient is on chronic azithromycin for his COPD GERD -Continue home PPI Chronic iron deficiency anemia -Continue home iron supplementation -Hemoglobin is stable between 9 and 10 -Repeat CBC in a.m. Chronic atrial fibrillation -Continue Eliquis -Patient is rate controlled without any rate controlling medication DM-2 -Continue home Jardiance -Ozempic on hold -SSI -Cardiac/carb controlled diet History of gout -No evidence of acute flare -Uric acid is normal Hypothyroidism -Continue home levothyroxine Obesity -BMI 36.0 -Recommend weight loss -Complicates treatment, prognosis, outcomes DVT prophylaxis -Continue home apixaban CODE STATUS Full code Charges/Coding Visit Charges Inpatient E&M: 09428 [facility] [place] Hosp L3
--- NOTE | 2024-01-14 19:57 | PCM.RX.CS ---
Consult Antibiotic Management Pharmacy has been consulted to manage selected antibiotic: Vancomycin Type of Intervention Type of Consult: New start Suspected Infection Suspected Infection: Skin/Soft tissue Labs Labs: Sodium 135 mmol/L (136-145) L 01/14/24 14:03 Potassium 3.3 mmol/L (3.5-5.1) L 01/14/24 14:03 Chloride 98 mmol/L (98-107) 01/14/24 14:03 Carbon Dioxide 31.0 mmol/L (21.0-32.0) 01/14/24 14:03 Anion Gap 6 (5-15) 01/14/24 14:03 BUN 25 mg/dL (7-18) H 01/14/24 14:03 Creatinine 1.75 mg/dL (0.70-1.30) H 01/14/24 14:03 Est GFR (MDRD) Af Amer 50 mL/min (>60) L 01/14/24 14:03 Est GFR (MDRD) Non-Af 41 mL/min (>60) L 01/14/24 14:03 BUN/Creatinine Ratio 14.3 RATIO (10-20) 01/14/24 14:03 Glucose 183 mg/dL (74-106) H 01/14/24 14:03 Microbiology Microbiology: Microbiology 01/13/24 05:45 Sputum, Tracheal Aspirate Gram Stain - Final 01/13/24 05:45 Sputum, Tracheal Aspirate Respiratory Culture - Preliminary Gram negative ady 01/13/24 01:35 Mucosa - Nasopharyngeal Respiratory Panel (PCR) - Final 01/12/24 19:30 Urine, Clean Catch Streptococcus pneumoniae Antigen (M - Final 01/12/24 19:30 Urine, Clean Catch Legionella Antigen - Final 01/12/24 17:47 Mucosa - Nose SARS-CoV-2, Influenza & RSV (PCR) - Final Estimated Creatinine Clearance Estimated Creatinine Clearance: 52.6ml/min Goal Trough Goal Trough: 15-20 mcg/mL Pharmacy Plan for Drug Dosing Pharmacy Plan for Drug Dosing: NEW START IV VANCOMYCIN Consulting Physician: Dr. Nilsa Ballard Indication: Cellulitis Goal Trough: 15-20 SrCr: 1.75 CrCl: 52.6ml/min Comments: pt was previously on vancomycin for pneumonia. Had received a 2000mg loading dose and a 1500mg dose before it was dc'd on 01/13/24. Vancomycin Dose: based on patients weight and renal function, recommend an initial dose of 1000mg q12h starting 01/14/24 at 2000. do not recommend a loading dose due to increasing SrCr and patient recently on Vancomycin. Will check a trough level prior to the 3rd dose due to increasing SrCr Pending Level: 01/15/24 at 1930 Pharmacy Service will continue to monitor and adjust dosing as required. Follow-Up Labs Follow-Up Labs: Trough: Vancomycin (01/15/24 at 1930)
[2024-01-14] MEDS: Vancomycin IV 1,000 MG/200 ML BAG 200 MG IV (20:08)
[2024-01-14] MEDS: guaiFENesin 1,200 MG Tablet 1200 MG PO (20:49)
[2024-01-14] MEDS: Atorvastatin Calcium 40 MG Tablet PO (20:50)
[2024-01-14 21:24] LABS: M R Staph aureus DNA By PCR Negative (Negative)
[2024-01-14 22:24] LABS: Bedside Glucose 175 mg/dL (74-106)
[2024-01-15] VITALS (12 sets, daily range): BP systolic 148–174; BP diastolic 65–81; PULSE 70–98; RESP 16–20; TEMP 36.8–37.7; O2SAT 96–100; BMI 36.2
[2024-01-15] MEDS: Ipratropium/Albuterol Sulfate 3 ML AMPUL.NEB INHALATION ×6 (03:21→23:50)
[2024-01-15 06:27] LABS: Absolute Lymphocyte Count 0.45 X10^3/uL (0.83-4.51); Absolute Neutrophil Count 8.9 X10^3/uL (2.0-7.7); Basophil# 0.02 X10^3/uL; Basophil% 0.2 % (0-1); Eosinophil# 0.03 X10^3/uL; Eosinophils% 0.3 % (0-5); Hematocrit 30.4 % (40-54); Hemoglobin 9.6 g/dL (13.0-16.5); Lymphocyte # 0.45 X10^3/ul (0.83-4.51); Lymphocyte % 4.1 % (19-41); Mean Corp Hgb Conc 31.6 g/dL (32-36); Mean Corpuscular Hgb 28.4 pg (27.0-32.0); Mean Corpuscular Volume 89.9 fL (80-94); Mean Platelet Vol. 9.9 fl (6.2-12.0); Monocyte# 1.49 X10^3/uL; Monocyte% 13.6 % (0-10); NRBC Flagged by Analyzer 0 % (0-5); Neutrophil # 8.93 X10^3/uL (2.7-7.7); Neutrophil % 81.3 % (47-70); POSITIVE DIFFERENTIAL YES; Platelet Count 300 K/mm3 (150-450); RBC Distribution Width CV 12.4 % (11.6-14.6); RBC Distribution Width SD 40.6 fl (35.1-43.9); Red Blood Count 3.38 M/mm3 (4.6-6.2)
[2024-01-15] MEDS: Levothyroxine 150 MCG Tablet PO (06:30)
[2024-01-15] MEDS: levoFLOXacin 750 MG Tablet PO (06:30)
[2024-01-15 06:54] LABS: ALB/GLOB Ratio 0.6 RATIO (0.9-2.4); AST(SGOT) 18 U/L (15-37); Alanine Aminotransfer ALT/SGPT 16 U/L (16-61); Albumin, Serum 2.5 g/dL (3.2-5.0); Alkaline Phosphatase 96 U/L (45-117); Anion Gap 9 (5-15); BUN 27 mg/dL (7-18); BUN/Creat Ratio 15.3 RATIO (10-20); Calcium,Total 8.7 mg/dL (8.5-10.1); Chloride 98 mmol/L (98-107); Creatinine, Serum 1.77 mg/dL (0.70-1.30); EST Glomerular Filtration Rate 41 mL/min (>60); Est Glom Filt Rate - Afr Amer 49 mL/min (>60); Estimated Creatinine Clearance 52.06 ml/min; Globulin 4.4 g/dL (2.2-4.2); Glucose 162 mg/dL (74-106); Magnesium 2.1 mg/dL (1.6-2.6); Phosphorus 4.7 mg/dL (2.5-4.9); Potassium 3.8 mmol/L (3.5-5.1); Protein, Total 6.9 g/dL (6.4-8.2); Sodium Level 135 mmol/L (136-145)
[2024-01-15] MEDS: Budesonide Respules 0.5 MG/2 ML AMPUL.NEB. INHALATION ×2 (07:02→20:10)
[2024-01-15 07:11] LABS: Bedside Glucose 168 mg/dL (74-106)
--- NOTE | 2024-01-15 08:18 | CT_ITS ---
CLINICAL HISTORY: Male, 68 years old. Right upper extremity edema and small elbow joint effusion. PROCEDURE: CT-guided aspiration. CONSENT: The procedure as well as the benefits and possible complications including infection and bleeding were explained to the patient. Informed consent was obtained. STERILE BARRIER TECHNIQUE: The following sterile barrier precautions were used during the procedure: hand hygiene; use of 2% chlorhexidine aseptic; use of a cap, mask, sterile gown, sterile gloves, sterile full body drape, and a large sterile sheet. TECHNIQUE: The overlying skin was prepped and draped in usual sterile fashion. An 18-gauge biopsy needle was placed into the joint effusion. Upper proximal 3 4 cc of blood-tinged fluid was aspirated. # of Images: 213 CT/Biopsy/Inj or Needle Placement IMPRESSION: Aspiration of the elbow joint effusion as described. The patient tolerated the procedure well. Electronically Signed: Tashi Lipscomb MD at 10:16 EST ,
--- NOTE | 2024-01-15 08:40 | NURSING ---
Placed on 3L NC per RT, pt has larygectomy tube in place. Maintaining spo2 at 96% prior to departure from floor for elbow aspiration.
--- NOTE | 2024-01-15 08:50 | VDUE_ITS ---
Reason For Study: RUE Swelling Right Proximal Right jugular vein is spontaneous, widely patent, phasic, with no intraluminal echogenicity noted. Right subclavian vein is spontaneous, widely patent, phasic, with no intraluminal echogenicity noted. Right Lower Arm Right radial vein is compressible. Right ulnar vein is compressible. Right Arm Right axillary vein is spontaneous, patent, phasic, competent, compressible and demonstrates augmentation. Right brachial vein is compressible. Right cephalic vein is compressible. Right basilic vein is compressible. Patient Safety Preliminary result delivered to [place] [facility] linen tech. VL/Venous Duplex US, Unilateral Interpretation Summary Deep veins of the right upper extremity are patent and compressible segmentally . There is no evidence of deep vein thrombosis. The superficial veins of the right upper extr emity, the basilic and cephalic veins, are patent and compressible. There is no evidence of right upper extremity superficial thrombophlebitis involving the veins imaged. Ordering Physician: Zo Ballard Referring Physician: Chinmay Sin Performed By: Mina Colindres RVT ???
[2024-01-15] MEDS: Lidocaine 2% (20 ml mdv) 20 ML Vial INFILT (09:20)
[2024-01-15] MEDS: amLODIPine 5 MG Tablet PO (10:29)
[2024-01-15] MEDS: Pantoprazole Sodium 20 MG Tablet PO (10:29)
[2024-01-15] MEDS: APIXABAN 5 MG TABLET PO ×2 (10:29→21:03)
[2024-01-15] MEDS: Cyanocobalamin 500 MCG Tablet PO (10:29)
[2024-01-15] MEDS: guaiFENesin 1,200 MG Tablet 1200 MG PO ×2 (10:29→21:03)
[2024-01-15] MEDS: Lactobacillis Acidophilus 1 CAP PO ×2 (10:29→21:04)
[2024-01-15] MEDS: Vancomycin IV 1,000 MG/200 ML BAG 200 MG IV (10:34)
[2024-01-15] MEDS: oxyCODONE 5 MG Tablet PO (10:38)
--- NOTE | 2024-01-15 11:22 | FLU_PTH ---
PATIENT: ABDIEL CORTEZ LOC: [facility] U#:[id number] AGE/SX: 68/M ROOM: [facility] RE01/12/[address]: Dr. Bridgett Dale MD : 1955 BED: 1 DIS: 01/21/2024 SPEC #: [id number] RECD: 01/15/24 13:45 STATUS: CHELSEA REBlaine #: [id number] MENDEZ: 01/15/24 11:[address]: Zo Ballard DEPT: CYTOLOGY RECD BY: Sonny Becerril ENTERED: 01/15/24 13:45 SP TYPE: Fluid OTHR DR: DO Dr. Chinmay Urias MD Dr. Mark Tereletsky, DO Tissues: Elbow, NOS Procedures: Special Stain Group II Surgery Specimen Level IV Cytospin Fluid HEADER OPERATION: Not noted PRE-OP DIAGNOSIS: Pneumonia, congestive heart failure exacerbation TISSUE SUBMITTED: Urine for cytology DIAGNOSIS CYTOLOGY Urine for cytology (cytospins): Negative for high grade urothelial carcinoma (Aissatou Category System II). See comment. AM. 01/16/2024 COMMENT The specimen is markedly hypocellular. Clinical correlation is suggested. The Aissatou System for urine cytology diagnostic categorization was used in the evaluation of this case. CYTOLOGY STUDY Slides are reviewed. CYTOLOGY GROSS Received is 0.2 ml of red-cloudy fluid labeled with the patient's name and and designated per the requisition as urine. Submitted for cytology preparation. Mr 01/15/2024 TC:5 CPT: 98178 ,76521
[2024-01-15] MEDS: Insulin Lispro 100 UNIT/ML INSULN.PEN SC ×3 (11:44→21:09)
[2024-01-15] MEDS: Ferrous Sulfate 325 MG Tablet PO (11:45)
[2024-01-15 12:04] LABS: Cytology, Body Fluid / CSF SEE PATHOLOGY REPORT
[2024-01-15 12:06] LABS: Bedside Glucose 169 mg/dL (74-106)
[2024-01-15 13:08] LABS: Anti-Centromere B Ab <0.2 AI (0.0-0.9); Anti-Chromatin <0.2 AI (0.0-0.9); Anti-Jo <0.2 AI (0.0-0.9); Anti-Scleroderma-70 AB <0.2 AI (0.0-0.9); Anti-dsDNA Ab <1 IU/mL (0-9); RNP Ab <0.2 AI (0.0-0.9); SJOGREN'S Anti-SS-A test < 0.2 AI (0.0-0.9); SJOGREN'S Anti-SS-B test < 0.2 AI (0.0-0.9); Smith Ab <0.2 AI (0.0-0.9)
[2024-01-15 15:45] LABS: Bedside Glucose 199 mg/dL (74-106)
--- NOTE | 2024-01-15 17:48 | PCM.PN.HOSP ---
Reason for Visit Reason for Visit: Right arm edema/shortness of breath Subjective Subjective Patient states shortness of breath is back to his baseline. Right arm is feeling a little bit better today. He did have his elbow aspirated today and cultures are currently pending. I discussed with him that we will keep him on his antibiotics. Sputum cultures growing 2 gram-negative organisms. I did instruct him to keep it elevated is much as possible to help swelling drain back up in his arm. Objective Data Objective Data Vital Signs: Vital Signs Temp Pulse Resp BP Pulse Ox O2 Del Method O2 Flow Rate 99.4 F H 96 16 149/77 H 100 Trach Collar 3 01/15/24 15:20 01/15/24 15:20 01/15/24 15:20 01/15/24 15:20 01/15/24 15:20 01/15/24 15:20 01/15/24 09:43 FiO2 30 01/15/24 15:20 Oxygen Flow Rate (L/min) 3 Oxygen Delivery Method Trach Collar Weight: 117.4 kg Body Mass Index (BMI) 36.2 Intake & Output: Intake and Output for Last 24 Hours 01/13/24 01/14/24 01/15/24 23:59 23:59 23:59 Intake Total 2820 / 3120 1650 / 1650 200 / 200 Output Total 1500 / 2150 3300 / 3300 800 / 800 Balance 1320 / 970 -1650 / -1650 -600 / -600 Lab / Micro Data 01/15/24 05:35 01/15/24 05:35 Labs: Laboratory Results - last 24 hr 01/13/24 13:10: LATIA-1 Antibody <0.2, SS-A/Ro IgG Antibody < 0.2, SS-B/La IgG Antibody < 0.2, Sm (Reyez) Antibody <0.2, DIRECTOR DATA Antibody <0.2, Scl-70 Scleroderma Ab <0.2, Double Strand DNA Ab <1, Antichromatin Antibodies <0.2, Centromere B Antibody <0.2 01/14/24 19:01: MRSA (PCR) Negative 01/14/24 21:50: POC Glucose 175 H 01/15/24 05:35: WBC 11.0, RBC 3.38 L, Hgb 9.6 L, Hct 30.4 L, MCV 89.9, MCH 28.4, MCHC 31.6 L, RDW Std Deviation 40.6, RDW Coeff of Alisson 12.4, Plt Count 300, MPV 9.9, Immature Gran % (Auto) 0.500, Neut % (Auto) 81.3 H, Lymph % (Auto) 4.1 L, [place] % (Auto) 13.6 H, Eos % (Auto) 0.3, Baso % (Auto) 0.2, Absolute Neuts (auto) 8.9 H, Absolute Lymphs (auto) 0.45 L, Nucleated RBC % 0, Sodium 135 L, Potassium 3.8, Chloride 98, Carbon Dioxide 28.0, Anion Gap 9, BUN 27 H, Creatinine 1.77 H, Estim Creat Clear Calc 52.06, Est GFR (MDRD) Af Amer 49 L, Est GFR (MDRD) Non-Af 41 L, BUN/Creatinine Ratio 15.3, Glucose 162 H, Calcium 8.7, Phosphorus 4.7, Magnesium 2.1, Total Bilirubin 0.60, AST 18, ALT 16, Alkaline Phosphatase 96, Total Protein 6.9, Albumin 2.5 L, Globulin 4.4 H, Albumin/Globulin Ratio 0.6 L 01/15/24 06:33: POC Glucose 168 H 01/15/24 09:40: Fluid Source Cancelled, Fluid Color Cancelled, Fluid Appearance Cancelled, Fluid WBC Cancelled, Fluid RBC Cancelled, Fluid Tot Cell Count Cancelled, Fld Polynuclear WBCs # Cancelled, Fld Polynuclear WBCs % Cancelled, Fluid Mononuclear WBCs Cancelled, Fld Mononuclear WBCs % Cancelled, Fluid Neutrophils Cancelled, Fluid Lymphocytes Cancelled, Fluid Monocytes Cancelled, Fluid Plasma Cells Cancelled, Fluid Macrophages Cancelled, Fld Mesothelial Cells Cancelled, Fluid Other Cells Cancelled, Fl Pathologist Comment Cancelled, Fluid Comment 2 Cancelled 01/15/24 11:42: POC Glucose 169 H 01/15/24 15:18: POC Glucose 199 H Micro: Microbiology 01/15/24 09:40 Fluid - Synovial (joint) Gram Stain - Final 01/13/24 05:45 Sputum, Tracheal Aspirate Gram Stain - Final 01/13/24 05:45 Sputum, Tracheal Aspirate Respiratory Culture - Preliminary Gram negative ady Gram negative ady#2 01/12/24 17:20 Blood Culture (Wb) - Left Forearm Blood Culture - Preliminary No growth in 48 hours. 01/13/24 01:35 Mucosa - Nasopharyngeal Respiratory Panel (PCR) - Final 01/12/24 19:30 Urine, Clean Catch Streptococcus pneumoniae Antigen (M - Final 01/12/24 19:30 Urine, Clean Catch Legionella Antigen - Final 01/12/24 17:47 Mucosa - Nose SARS-CoV-2, Influenza & RSV (PCR) - Final Radiography Diagnostic Testing: Radiology Impression Biopsy CT 01/15/24 08:18 IMPRESSION: Aspiration of the elbow joint effusion as described. The patient tolerated the procedure well. Electronically Signed: Tashi Lipscomb MD at 10:16 EST , Physical Exam Const alert, oriented x3, no apparent distress and well nourished; Negative for average body habitus or healthy appearing Constitutional Narrative: Obese, upper middle-aged, white male, appears older than stated age, sitting up in a chair at the bedside, at the bedside, appears comfortable, nontoxic appearing, arm is slightly elevated up on a pillow HEENT normocephalic, head/scalp atraumatic and moist oral mucous membranes HEENT Narrative: Mallampati 3, no thrush Neck no lymphadenopathy and supple Neck Narrative: Trachea is midline with tracheostomy tube in place, covered with trach mask Resp normal respiratory effort, no retractions, no use of accessory muscles and clear to auscultation bilaterally Auscultation: Negative for crackles, rales, rhonchi or wheezes Cardio regular rate, regular rhythm, S1 normal heart sound, S2 normal heart sound, no murmurs, no rub, no gallops and no clicks GI normal to inspection, nondistended, normoactive bowel sounds, soft to palpation and non-tender GI Narrative: Large protuberant abdomen Extremity Extremity Narrative: Right upper extremity with ongoing swelling that is nonpitting, range of motion is decreased however swelling seems to be a little bit better and movement has improved, decreased redness, but not normalized as of yet. Neuro oriented x3, moves all extremities and no focal motor deficits Neuro Narrative: Speech is breathy due to tracheostomy Psych affect normal Psych Narrative: Very pleasant, interacts appropriately Assessment & Plan Assessment/Plan (1) Gram-negative pneumonia: (2) Edema of right upper extremity: (3) Effusion of elbow joint, right: PLAN: Plan Community-acquired pneumonia secondary to gram-negative ady x 2 -Identification of organisms is pending and patient may have some colonization with his chronic trach however he was symptomatic on presentation with increase sputum production so I think we need to pursue completed treatment -If organisms are resistant may need ID involvement -Continue Levaquin and patient was started back on vancomycin due to his right upper extremity -Await identification and sensitivities -Continue aerosols as ordered -Continue incentive spirometry and Acapella -Patient was baseline oxygen -Patient is at risk for resistant organisms due to his chronic tracheostomy tube -Patient does have history of MDRO Right upper extremity edema -Etiology remains unclear -Uric acid was normal -ESR and CRP are elevated however this could be related to his pneumonia as well -Continue vancomycin and Levaquin for now -MRSA PCR negative -Aspirate of right elbow culture is pending but Gram stain is without organisms -Right upper extremity Dopplers negative for DVT -Continue vascular checks -Continue oxycodone as needed to help with pain related -Autoimmune panel is negative Hypokalemia -Resolved CKD stage IIIa -Serum creatinine relatively stable today -If remains stable over the next 24 hours will reinitiate home diuretics at 40 p.o. twice daily Chronic HFpEF due to diastolic dysfunction -Stable -Consider reinitiation of Lasix p.o. twice daily tomorrow -Diuresis did not improve edema History of laryngeal cancer status post laryngectomy -Chronic tracheostomy tube -Cancer currently in remission Essential hypertension/hyperlipidemia -Diuretics on hold -Continue home amlodipine -Continue home atorvastatin COPD -Continue home Pulmicort -Outpatient follow-up recommended -Does not appear patient is chronic oxygen dependent -Patient is on chronic azithromycin for his COPD GERD -Continue home PPI Chronic iron deficiency anemia -Continue home iron supplementation -Hemoglobin is stable between 9 and 10 -Repeat CBC in a.m. Chronic atrial fibrillation -Continue Eliquis -Patient is rate controlled without any rate controlling medication DM-2 -Continue home Jardiance -Ozempic on hold -SSI -Cardiac/carb controlled diet History of gout -No evidence of acute flare -Uric acid is normal Hypothyroidism -Continue home levothyroxine Obesity -BMI 36.1 -Recommend weight loss -Complicates treatment, prognosis, outcomes DVT prophylaxis -Continue home apixaban CODE STATUS Full code Charges/Coding Visit Charges Inpatient E&M: 71056 Subs Hosp L2
[2024-01-15 20:06] LABS: Vancomycin, Trough Level 23.9 ug/mL (5.0-15.0)
[2024-01-15] MEDS: Acetaminophen 325 MG Tablet 650 MG PO (21:02)
[2024-01-15] MEDS: Atorvastatin Calcium 40 MG Tablet PO (21:04)
[2024-01-15 21:32] LABS: Bedside Glucose 151 mg/dL (74-106)
[2024-01-16] VITALS (11 sets, daily range): BP systolic 126–165; BP diastolic 50–85; PULSE 75–119; RESP 16–26; TEMP 36.9–38.2; O2SAT 89–98; BMI 36.0
[2024-01-16] MEDS: Ipratropium/Albuterol Sulfate 3 ML AMPUL.NEB INHALATION ×6 (03:15→23:35)
[2024-01-16] MEDS: Levothyroxine 150 MCG Tablet PO (06:28)
[2024-01-16] MEDS: levoFLOXacin 750 MG Tablet PO (06:29)
[2024-01-16] MEDS: Insulin Lispro 100 UNIT/ML INSULN.PEN SC ×4 (06:31→20:25)
[2024-01-16 06:50] LABS: Bedside Glucose 162 mg/dL (74-106)
[2024-01-16] MEDS: Budesonide Respules 0.5 MG/2 ML AMPUL.NEB. INHALATION ×2 (07:23→19:45)
[2024-01-16 07:40] LABS: Absolute Lymphocyte Count 0.42 X10^3/uL (0.83-4.51); Absolute Neutrophil Count 10.8 X10^3/uL (2.0-7.7); Basophil# 0.02 X10^3/uL; Basophil% 0.2 % (0-1); Eosinophil# 0.01 X10^3/uL; Eosinophils% 0.1 % (0-5); Hematocrit 30.4 % (40-54); Hemoglobin 9.5 g/dL (13.0-16.5); Lymphocyte # 0.42 X10^3/ul (0.83-4.51); Lymphocyte % 3.3 % (19-41); Mean Corp Hgb Conc 31.3 g/dL (32-36); Mean Corpuscular Hgb 28.7 pg (27.0-32.0); Mean Corpuscular Volume 91.8 fL (80-94); Mean Platelet Vol. 10.2 fl (6.2-12.0); Monocyte# 1.39 X10^3/uL; Monocyte% 10.9 % (0-10); NRBC Flagged by Analyzer 0 % (0-5); Neutrophil % 84.9 % (47-70); POSITIVE DIFFERENTIAL YES; Platelet Count 307 K/mm3 (150-450); RBC Distribution Width CV 12.3 % (11.6-14.6); RBC Distribution Width SD 41.3 fl (35.1-43.9); Red Blood Count 3.31 M/mm3 (4.6-6.2); White Blood Count 12.7 K/mm3 (4.4-11.0)
[2024-01-16 08:01] LABS: Vancomycin, Random Level 18.3 ug/mL (0.0-15.0)
[2024-01-16 08:06] LABS: Anion Gap 9 (5-15); BUN 29 mg/dL (7-18); BUN/Creat Ratio 15.8 RATIO (10-20); Calcium,Total 8.9 mg/dL (8.5-10.1); Chloride 98 mmol/L (98-107); Creatinine, Serum 1.83 mg/dL (0.70-1.30); EST Glomerular Filtration Rate 39 mL/min (>60); Est Glom Filt Rate - Afr Amer 47 mL/min (>60); Estimated Creatinine Clearance 50.22 ml/min; Glucose 160 mg/dL (74-106); Magnesium 2.1 mg/dL (1.6-2.6); Phosphorus 4.2 mg/dL (2.5-4.9); Potassium 3.6 mmol/L (3.5-5.1); Sodium Level 135 mmol/L (136-145)
--- NOTE | 2024-01-16 08:53 | PCM.RX.CS ---
Consult Antibiotic Management Pharmacy has been consulted to manage selected antibiotic: Vancomycin Type of Intervention Type of Consult: Follow-up Suspected Infection Suspected Infection: Skin/Soft tissue Prior Doses of Antibiotics Prior Doses of Antibiotics Received/Current Regimen: 1000mg iv q12h Labs Labs: Sodium 135 mmol/L (136-145) L 01/16/24 06:10 Potassium 3.6 mmol/L (3.5-5.1) 01/16/24 06:10 Chloride 98 mmol/L (98-107) 01/16/24 06:10 Carbon Dioxide 28.0 mmol/L (21.0-32.0) 01/16/24 06:10 Anion Gap 9 (5-15) 01/16/24 06:10 BUN 29 mg/dL (7-18) H 01/16/24 06:10 Creatinine 1.83 mg/dL (0.70-1.30) H 01/16/24 06:10 Est GFR (MDRD) Af Amer 47 mL/min (>60) L 01/16/24 06:10 Est GFR (MDRD) Non-Af 39 mL/min (>60) L 01/16/24 06:10 BUN/Creatinine Ratio 15.8 RATIO (10-20) 01/16/24 06:10 Glucose 160 mg/dL (74-106) H 01/16/24 06:10 Vancomycin Trough 23.9 ug/mL (5.0-15.0) H 01/15/24 19:25 Random Vancomycin 18.3 ug/mL (0.0-15.0) H 01/16/24 06:10 Microbiology Microbiology: Microbiology 01/13/24 05:45 Sputum, Tracheal Aspirate Gram Stain - Final 01/13/24 05:45 Sputum, Tracheal Aspirate Respiratory Culture - Final Pseudomonas aeruginosa Proteus hauseri 01/15/24 09:40 Fluid - Synovial (joint) Gram Stain - Final 01/12/24 17:20 Blood Culture (Wb) - Left Forearm Blood Culture - Preliminary No growth in 48 hours. 01/13/24 01:35 Mucosa - Nasopharyngeal Respiratory Panel (PCR) - Final 01/12/24 19:30 Urine, Clean Catch Streptococcus pneumoniae Antigen (M - Final 01/12/24 19:30 Urine, Clean Catch Legionella Antigen - Final 01/12/24 17:47 Mucosa - Nose SARS-CoV-2, Influenza & RSV (PCR) - Final Dosing Weight Weight used for dosin kg Estimated Creatinine Clearance Estimated Creatinine Clearance: 50ml/min Goal Trough Goal Trough: 15-20 mcg/mL Pharmacy Plan for Drug Dosing Pharmacy Plan for Drug Dosing: Today's trough 18.3 and in therapeutic range. Previous trough on 01.15.24 was 23.9. Recommend decreasing dose from 1gm q12h to 750mg iv q12h with repeat trough before 4th dose of new regimen. Pharmacy Service will continue to monitor and adjust dosing as required. Follow-Up Labs Follow-Up Labs: Trough: Vancomycin (01.17.24 @2130)
[2024-01-16] MEDS: guaiFENesin 1,200 MG Tablet 1200 MG PO ×2 (11:57→20:25)
[2024-01-16] MEDS: amLODIPine 5 MG Tablet PO (11:57)
[2024-01-16] MEDS: APIXABAN 5 MG TABLET PO ×2 (11:57→20:26)
[2024-01-16] MEDS: Ferrous Sulfate 325 MG Tablet PO (11:58)
[2024-01-16] MEDS: Cyanocobalamin 500 MCG Tablet PO (11:58)
[2024-01-16] MEDS: Lactobacillis Acidophilus 1 CAP PO ×4 (11:58→20:26)
[2024-01-16 12:23] LABS: Bedside Glucose 157 mg/dL (74-106)
--- NOTE | 2024-01-16 13:41 | CON.PCM.ID_ITS ---
Assessment & Plan Assessment/Plan (1) Effusion of elbow joint, right: (2) Gram-negative pneumonia: PLAN: Cont leigh ann, will add doxy for skin coverage. Will follow, thank you (3) History of tracheostomy: HPI Consult Data Date of Consult: 01/16/24 HPI Narrative Reason for Consultation: RUE infection HPI Narrative: ABDIEL CORTEZ, is a 68 M with h/o DM, htn, chronic resp failure with trach, presented 01/11 with 3 days increased dyspnea, cough, sputum. Also with BUE swelling, R more than L with elbow pain, redness, warmth. Seen by ortho, aspiration done. Fever improved. Full ROS performed and neg except as noted above. [facility], [facility] Medical History Respiratory insufficiency Adverse drug reaction Symptomatic bradycardia Sinus bradycardia Hypoxia Anticoagulant long-term use COPD exacerbation Pleural effusion on left Acute exacerbation of CHF (congestive heart failure) Kidney disease COPD (chronic obstructive pulmonary disease) Atrial fibrillation BPH (benign prostatic hyperplasia) Anxiety and depression Stage 3a chronic kidney disease (CKD) Atrial fibrillation Obesity Tracheostomy in place Anticoagulant long-term use Chronic a-fib Recurrent left pleural effusion Chronic pain (HFpEF) heart failure with preserved ejection fraction Wears glasses Walker as ambulation aid Ambulates with cane Injury of back Migraine headache Gastric reflux Former smoker On home oxygen therapy Emphysema, unspecified Obesity Chronic renal failure, stage 3 (moderate) Laryngeal cancer Gastroenteritis Diabetes mellitus, type II Malignant neoplasm of head, neck and face History of colon polyps Gout Hyperlipidemia Hiatal hernia Esophageal dysmotility Diverticulosis of colon (without mention of hemorrhage) Benign neoplasm of colon Atherosclerosis of coronary artery of [place] heart without angina pectoris Essential hypertension Hypothyroidism COPD (chronic obstructive pulmonary disease) Home Medications ?Medication ?Instructions ?Recorded ?Last Taken ?Type levothyroxine 150 mcg tablet 150 mcg PO DAILY hypothyroidism 06/04/14 11/13/22 History atorvastatin 40 mg tablet 40 mg PO DAILY@1700 cholesterol 04/12/17 11/12/22 History ipratropium 0.5 mg-albuterol 3 mg 3 ml inhalation Q4H sob 04/12/17 11/13/22 History (2.5 mg base)/3 mL nebulization soln flash glucose sensor (FreeStyle #2 ea 05/17/21 Unknown Rx Zayra 2 Sensor kit) acetaminophen 325 mg tablet 650 mg PO DAILY PRN Pain 12/06/21 11/13/22 History budesonide 0.5 mg/2 mL suspension 0.5 mg inhalation BID sob 12/06/21 11/10/22 History for nebulization (Pulmicort) ferrous sulfate 325 mg (65 mg 325 mg PO DAILY iron 08/29/22 11/13/22 History iron) tablet (FeroSul) potassium chloride 10 mEq 20 meq PO DAILY mineral 11/13/22 11/13/22 History capsule,extended release pen needle, diabetic 32 gauge x #100 ea 06/22/23 Unknown Rx 04/20 amlodipine 5 mg tablet 5 mg PO DAILY #90 tabs 09/17/23 Unknown Rx apixaban 5 mg tablet (Eliquis) 5 mg PO BID blood thinner #180 tabs 09/20/23 Unknown Rx buspirone 7.5 mg tablet 7.5 mg PO TID PRN PRN anxiety 10/01/23 Unknown History cyanocobalamin (vitamin B-12) 500 500 mcg PO DAILY 10/01/23 Unknown History mcg tablet empagliflozin 10 mg tablet 10 mg PO DAILY 10/01/23 Unknown History (Jardiance) omeprazole 20 mg capsule,delayed 20 mg PO DAILY 10/01/23 Unknown History release semaglutide 2 mg/dose (8 mg/3 mL) 2 mg subcut .COMPLEX diabetes 10/01/23 Unknown History subcutaneous pen injector (Ozempic) furosemide 40 mg tablet 40 mg PO BID EDEMA 1 month #60 tabs 10/25/23 Unknown Rx azithromycin 250 mg tablet 250 mg PO DAILY 01/12/24 Unknown History azithromycin 500 mg tablet 1,000 mg PO QWEEK 01/12/24 Unknown History Allergy/AdvReac Type Severity Reaction Status Date / Time No Known Allergies Allergy Verified 01/12/24 16:55 Family History Mother Diabetes Hypertension Kidney disease Heart failure Father CVA (cerebral vascular accident) Hypertension Heart disease ischemic Brother Diabetes Surgical History (Updated 01/13/24 @ 06:[address] Himanshu Bermeo DO) History of thyroidectomy History of cardiac catheterization Hx of colonoscopy History of thyroidectomy History of exploratory laparotomy Presence of tracheostomy History of laryngectomy (2007) Social History (Reviewed 10/16/23 @ 13:08 by Phyllis Solis [employer], [employer] STRA[employer]-C) household members: spouse housing: house Smoking Status: Former smoker Smokeless tobacco user: snuff how long ago did patient quit smokin years ago alcohol intake: never substance use type: does not use caffeine: Yes what type of physical activity do you participate in: none frequency: does not exercise Physical Exam Const alert and no apparent distress General Appearance: cooperative HEENT normocephalic and head/scalp atraumatic Eyes PERRL and EOMs intact bilaterally Neck supple Neck Narrative: trach Resp Auscultation: diminished lung sounds Cardio regular rate and regular rhythm GI soft to palpation, non-tender and non-distended Extremity General Extremity: edema Skin Skin Narrative: R elbow pain, swelling, redness Neuro CN's II-XII intact bilaterally Lab / Micro Data Attestation: I reviewed the patient's lab results. 01/16/24 06:10 01/16/24 06:10 Labs: Laboratory Results - last 24 hr 01/15/24 15:18: POC Glucose 199 H 01/15/24 19:25: Vancomycin Trough 23.9 H 01/15/24 21:08: POC Glucose 151 H 01/16/24 06:10: WBC 12.7 H, RBC 3.31 L, Hgb 9.5 L, Hct 30.4 L, MCV 91.8, MCH 28.7, MCHC 31.3 L, RDW Std Deviation 41.3, RDW Coeff of Alisson 12.3, Plt Count 307, MPV 10.2, Immature Gran % (Auto) 0.600, Neut % (Auto) 84.9 H, Lymph % (Auto) 3.3 L, [place] % (Auto) 10.9 H, Eos % (Auto) 0.1, Baso % (Auto) 0.2, Absolute Neuts (auto) 10.8 H, Absolute Lymphs (auto) 0.42 L, Nucleated RBC % 0, Sodium 135 L, Potassium 3.6, Chloride 98, Carbon Dioxide 28.0, Anion Gap 9, BUN 29 H, C reatinine 1.83 H, Estim Creat Clear Calc 50.22, Est GFR (MDRD) Af Amer 47 L, Est GFR (MDRD) Non-Af 39 L, BUN/Creatinine Ratio 15.8, Glucose 160 H, Calcium 8.9, Phosphorus 4.2, Magnesium 2.1, Random Vancomycin 18.3 H 01/16/24 06:30: POC Glucose 162 H 01/16/24 11:52: POC Glucose 157 H Micro: Microbiology 01/15/24 09:40 Fluid - Synovial (joint) Gram Stain - Final 01/15/24 09:40 Fluid - Synovial (joint) Body Fluid Culture - Preliminary No growth-Final to follow 01/13/24 05:45 Sputum, Tracheal Aspirate Gram Stain - Final 01/13/24 05:45 Sputum, Tracheal Aspirate Respiratory Culture - Final Pseudomonas aeruginosa Proteus hauseri Imaging Radiology Impression Venous Doppler Study 01/15/24 08:50 Interpretation Summary Deep veins of the right upper extremity are patent and compressible segmentally. There is no evidence of deep vein thrombosis. The superficial veins of the right upper extremity, the basilic and cephalic veins, are patent and compressible. There is no evidence of right upper extremity superficial thrombophlebitis involving the veins imaged. Ordering Physician: Zo Ballard Referring Physician: Chinmay Sin Performed By: Mina Colindres RVT ???
[2024-01-16] MEDS: Piperacil/Tazobactam 3.375 GM in 0.9% Normal Saline (50mL MB+) 50 ML IV ×2 (15:05→20:23)
--- NOTE | 2024-01-16 16:28 | PCM.PN.HOSP ---
Reason for Visit Reason for Visit: Shortness of breath/right upper extremity edema Subjective Subjective Right arm slowly improves. Patient still on oxygen which is not his baseline. We are continuing to wean. Objective Data Objective Data Vital Signs: Vital Signs Temp Pulse Resp BP Pulse Ox O2 Del Method O2 Flow Rate 100.5 F H 87 20 H 126/76 H 95 Trach Collar 6 01/16/24 12:00 01/16/24 15:19 01/16/24 15:19 01/16/24 12:00 01/16/24 15:15 01/16/24 15:15 01/16/24 15:15 FiO2 28 01/16/24 15:15 Oxygen Flow Rate (L/min) 6 Oxygen Delivery Method Trach Collar Weight: 116.8 kg Body Mass Index (BMI) 36.0 Intake & Output: Intake and Output for Last 24 Hours 01/14/24 01/15/24 01/16/24 23:59 23:59 23:59 Intake Total 1650 / 1650 200 / 200 700 / 700 Output Total 3300 / 3300 1050 / 1050 500 / 500 Balance -1650 / -1650 -850 / -850 200 / 200 Lab / Micro Data 01/16/24 06:10 01/16/24 06:10 Labs: Laboratory Results - last 24 hr 01/15/24 09:40: Miscellaneous Cytology SEE PATHOLOGY REPORT 01/15/24 19:25: Vancomycin Trough 23.9 H 01/15/24 21:08: POC Glucose 151 H 01/16/24 06:10: WBC 12.7 H, RBC 3.31 L, Hgb 9.5 L, Hct 30.4 L, MCV 91.8, MCH 28.7, MCHC 31.3 L, RDW Std Deviation 41.3, RDW Coeff of Alisson 12.3, Plt Count 307, MPV 10.2, Immature Gran % (Auto) 0.600, Neut % (Auto) 84.9 H, Lymph % (Auto) 3.3 L, [place] % (Auto) 10.9 H, Eos % (Auto) 0.1, Baso % (Auto) 0.2, Absolute Neuts (auto) 10.8 H, Absolute Lymphs (auto) 0.42 L, Nucleated RBC % 0, Sodium 135 L, Potassium 3.6, Chloride 98, Carbon Dioxide 28.0, Anion Gap 9, BUN 29 H, Creatinine 1.83 H, Estim Creat Clear Calc 50.22, Est GFR (MDRD) Af Amer 47 L, Est GFR (MDRD) Non-Af 39 L, BUN/Creatinine Ratio 15.8, Glucose 160 H, Calcium 8.9, Phosphorus 4.2, Magnesium 2.1, Random Vancomycin 18.3 H 01/16/24 06:30: POC Glucose 162 H 01/16/24 11:52: POC Glucose 157 H Micro: Microbiology 01/15/24 09:40 Fluid - Synovial (joint) Gram Stain - Final 01/15/24 09:40 Fluid - Synovial (joint) Body Fluid Culture - Preliminary No growth-Final to follow 01/13/24 05:45 Sputum, Tracheal Aspirate Gram Stain - Final 01/13/24 05:45 Sputum, Tracheal Aspirate Respiratory Culture - Final Pseudomonas aeruginosa Proteus hauseri 01/12/24 17:20 Blood Culture (Wb) - Left Forearm Blood Culture - Preliminary No growth in 48 hours. 01/13/24 01:35 Mucosa - Nasopharyngeal Respiratory Panel (PCR) - Final 01/12/24 19:30 Urine, Clean Catch Streptococcus pneumoniae Antigen (M - Final 01/12/24 19:30 Urine, Clean Catch Legionella Antigen - Final 01/12/24 17:47 Mucosa - Nose SARS-CoV-2, Influenza & RSV (PCR) - Final Radiography Diagnostic Testing: Radiology Impression Venous Doppler Study 01/15/24 08:50 Interpretation Summary Deep veins of the right upper extremity are patent and compressible segmentally. There is no evidence of deep vein thrombosis. The superficial veins of the right upper extremity, the basilic and cephalic veins, are patent and compressible. There is no evidence of right upper extremity superficial thrombophlebitis involving the veins imaged. Ordering Physician: Zo Ballard Referring Physician: Chinmay Sin Performed By: Mina Colindres RVT ??? Physical Exam Const alert, oriented x3, no apparent distress and well nourished; Negative for average body habitus or healthy appearing Constitutional Narrative: Obese, upper middle-aged, white male, appears older than stated age, sitting up in bed, nursing at bedside, appears comfortable HEENT normocephalic, head/scalp atraumatic and moist oral mucous membranes HEENT Narrative: No thrush Neck Neck Narrative: Trachea is midline with tracheostomy tube in place, covered with trach mask Resp normal respiratory effort, no retractions, no use of accessory muscles and No clear to auscultation bilaterally Resp Narrative: Few scattered wheezes today and bilaterally coarse Auscultation: wheezes; Negative for crackles, rales or rhonchi Cardio regular rate, regular rhythm, S1 normal heart sound, S2 normal heart sound, no murmurs, no rub, no gallops and no clicks GI normal to inspection, nondistended, normoactive bowel sounds, soft to palpation and non-tender GI Narrative: Large protuberant abdomen Extremity Extremity Narrative: Right upper extremity with ongoing swelling that is nonpitting but seems to be slowly improving, hand range of motion is slowly improving as well Neuro oriented x3 and no focal motor deficits Neuro Narrative: Speech is breathy due to tracheostomy Speech: Negative for speech normal Psych affect normal Psych Narrative: Very pleasant, interacts appropriately Assessment & Plan Assessment/Plan (1) Gram-negative pneumonia: (2) Edema of right upper extremity: (3) Effusion of elbow joint, right: PLAN: Plan Gram-negative pneumonia secondary to multidrug-resistant Pseudomonas and Proteus -Pseudomonas is resistant to Levaquin but sensitive to Zosyn so antibiotics changed today -Given resistance pattern infectious disease was consulted -Await identification and sensitivities -Continue aerosols as ordered -Continue incentive spirometry and Acapella -Patient was found to only be on oxygen at night so currently requiring more oxygen than typical however since we have not been treating the Proteus adequately hopefully the transition antibiotics will help Right upper extremity edema -Etiology remains unclear -Uric acid was normal -ESR and CRP are elevated however this could be related to his pneumonia as well -Vancomycin transition to doxycycline and will continue Zosyn for now -MRSA PCR negative -Aspirate of right elbow culture is pending but Gram stain is without organisms -Right upper extremity Dopplers negative for DVT -Continue vascular checks -Keep arm elevated is much as possible -Continue oxycodone as needed to help with pain related -ID is following and would like to continue to cover MRSA with doxycycline CKD stage IIIa -Slight trend up with serum creatinine however relatively stable -Continue to hold diuretics for now Chronic HFpEF due to diastolic dysfunction -Stable -Continue hold diuretics for now -Diuresis did not improve edema History of laryngeal cancer status post laryngectomy -Chronic tracheostomy tube -Cancer currently in remission Essential hypertension/hyperlipidemia -Diuretics on hold -Continue home amlodipine -Continue home atorvastatin COPD -Continue home Pulmicort -Outpatient follow-up recommended -Does not appear patient is chronic oxygen dependent -Patient is on chronic azithromycin for his COPD GERD -Continue home PPI Chronic iron deficiency anemia -Continue home iron supplementation -Hemoglobin is stable between 9 and 10 -Repeat CBC in a.m. Chronic atrial fibrillation -Continue Eliquis -Patient is rate controlled without any rate controlling medication DM-2 -Continue home Jardiance -Ozempic on hold -SSI -Cardiac/carb controlled diet -Fasting sugars 160 History of gout -No evidence of acute flare -Uric acid is normal Hypothyroidism -Continue home levothyroxine Obesity -BMI 36.1 -Recommend weight loss -Complicates treatment, prognosis, outcomes DVT prophylaxis -Continue home apixaban CODE STATUS Full code Charges/Coding Visit Charges Inpatient E&M: 31987 Subs Hosp L2
[2024-01-16 17:03] LABS: Bedside Glucose 173 mg/dL (74-106)
[2024-01-16] MEDS: Acetaminophen 325 MG Tablet 650 MG PO (18:42)
[2024-01-16] MEDS: Atorvastatin Calcium 40 MG Tablet PO (20:24)
[2024-01-16] MEDS: Doxycycline 100 MG CAPSULE PO (20:26)
[2024-01-16 21:23] LABS: Bedside Glucose 232 mg/dL (74-106)
[2024-01-17] VITALS (8 sets, daily range): BP systolic 124–148; BP diastolic 57–80; PULSE 85–96; RESP 18–20; TEMP 36.7–37.9; O2SAT 96–100; BMI 36.8
[2024-01-17] MEDS: Ipratropium/Albuterol Sulfate 3 ML AMPUL.NEB INHALATION ×5 (03:20→19:12)
[2024-01-17] MEDS: Piperacil/Tazobactam 3.375 GM in 0.9% Normal Saline (50mL MB+) 50 ML IV ×3 (04:50→21:45)
[2024-01-17] MEDS: oxyCODONE 5 MG Tablet PO (04:51)
[2024-01-17] MEDS: Levothyroxine 150 MCG Tablet PO (04:51)
[2024-01-17 05:48] LABS: Absolute Neutrophil Count 16.4 X10^3/uL (2.0-7.7); Basophil# 0.03 X10^3/uL; Basophil% 0.2 % (0-1); Hematocrit 28.3 % (40-54); Lymphocyte % 2.1 % (19-41); Mean Corp Hgb Conc 31.8 g/dL (32-36); Mean Corpuscular Volume 88.2 fL (80-94); Monocyte# 1.79 X10^3/uL; Monocyte% 9.6 % (0-10); NRBC Flagged by Analyzer 0 % (0-5); Neutrophil # 16.38 X10^3/uL (2.7-7.7); Neutrophil % 87.5 % (47-70); POSITIVE DIFFERENTIAL YES; Platelet Count 317 K/mm3 (150-450); RBC Distribution Width CV 12.2 % (11.6-14.6); RBC Distribution Width SD 39.7 fl (35.1-43.9); Red Blood Count 3.21 M/mm3 (4.6-6.2); White Blood Count 18.7 K/mm3 (4.4-11.0)
[2024-01-17] MEDS: Insulin Lispro 100 UNIT/ML INSULN.PEN SC ×4 (06:08→23:16)
[2024-01-17 06:15] LABS: Anion Gap 9 (5-15); BUN 35 mg/dL (7-18); BUN/Creat Ratio 17.1 RATIO (10-20); Calcium,Total 8.7 mg/dL (8.5-10.1); Chloride 97 mmol/L (98-107); Creatinine, Serum 2.05 mg/dL (0.70-1.30); EST Glomerular Filtration Rate 34 mL/min (>60); Est Glom Filt Rate - Afr Amer 42 mL/min (>60); Glucose 180 mg/dL (74-106); Magnesium 2.1 mg/dL (1.6-2.6); Phosphorus 4.2 mg/dL (2.5-4.9); Potassium 3.4 mmol/L (3.5-5.1); Sodium Level 133 mmol/L (136-145)
[2024-01-17 06:27] LABS: Bedside Glucose 168 mg/dL (74-106)
[2024-01-17 06:46] LABS: Differential Indicated SCAN CRITERIA MET
[2024-01-17] MEDS: Budesonide Respules 0.5 MG/2 ML AMPUL.NEB. INHALATION ×2 (06:55→19:12)
--- NOTE | 2024-01-17 09:57 | CASEMGMT ---
Discharge Planning A list of?SNF providers including quality and resource use data and consistent with the patient's preferred geographic region, medical needs, and insurance network was created in [facility] Guide.? This list was provided to the RN TALA. Aishwarya Esparza, Discharge Planning Asst.
[2024-01-17] MEDS: Ferrous Sulfate 325 MG Tablet PO (10:06)
[2024-01-17] MEDS: amLODIPine 5 MG Tablet PO (10:06)
[2024-01-17] MEDS: Cyanocobalamin 500 MCG Tablet PO (10:06)
[2024-01-17] MEDS: APIXABAN 5 MG TABLET PO ×2 (10:07→23:17)
[2024-01-17] MEDS: Doxycycline 100 MG CAPSULE PO ×2 (10:07→23:17)
[2024-01-17] MEDS: Lactobacillis Acidophilus 1 CAP PO ×3 (10:07→23:17)
[2024-01-17] MEDS: Potassium Chloride Oral Tablet 20 MEQ 40 MEQ PO (10:30)
[2024-01-17] MEDS: 0.9% Normal Saline (1000mL) 1,000 ML 100 ML IV ×2 (10:31→20:55)
--- NOTE | 2024-01-17 10:48 | PCM.PN.ID ---
Physical Exam Narrative Feeling better, breathing improved, BUE less red and swollen Const alert and no apparent distress General Appearance: cooperative Resp Auscultation: rhonchi Cardio regular rate and regular rhythm GI soft to palpation, non-tender and non-distended Skin Skin Narrative: BUE less red, less sore, less swollen ID ID: Route of nutrition/ use of supplements: [] Nutritional Intake: [] IV Site: [] Graf Catheter: [] Assessment & Plan Assessment/Plan (1) Effusion of elbow joint, right: (2) Gram-negative pneumonia: PLAN: Cont leigh ann for lungs and doxy for skin coverage. Overall improving. Will follow (3) History of tracheostomy:
[2024-01-17 12:14] LABS: Bedside Glucose 258 mg/dL (74-106)
[2024-01-17 12:54] LABS: Color, Urine Yellow (Yellow); Glucose, Dipstick 100 mg/dl (Normal); Ketone-Dipstick Negative (Negative); Leukocyte Esterase-Dipstick Negative /ul (Negative); Nitrite-Dipstick Negative (Negative); Occult Blood-Urine 10 /ul (Negative); Protein-Dipstick 100 mg/dl (Negative); Urine Bilirubin Dipstick Negative (Negative); Urine Clarity Cloudy (Clear); Urine Urobilinogen Normal (Normal)
[2024-01-17 13:10] LABS: Urine Sodium 8 mmol/L (Not Establ.)
--- NOTE | 2024-01-17 13:49 | PCM.DC.SUM ---
Providers Date of Admission: 01/12/24 Primary Care Physician: Dr. Chinmay Sin MD Consultations 01/16/24 09:12 Consult: Infectious Disease Routine Consulting Provider: Ron Lockhart Reason for Consult: MDRO PsAG EMERGENT Consult: No MD Notified: Yes Date Notified: 01/16/24 Time Notified: 09:37 Method of Notification: Text Reason For Visit: PNEUMONIA, CHF EXACERBATION Diagnosis Discharge Diagnosis (1) Effusion of elbow joint, right: Status: Acute Code(s): M25.421 - Effusion, right elbow (2) Gram-negative pneumonia: Status: Acute Code(s): J15.69 - Pneumonia due to other Gram-negative bacteria (3) History of tracheostomy: Status: Acute Code(s): Z98.890 - Other specified postprocedural states Plan Gram-negative pneumonia secondary to multidrug-resistant Pseudomonas and Proteus -Pseudomonas is resistant to Levaquin but sensitive to Zosyn so antibiotics changed today -Given resistance pattern infectious disease was consulted -Await identification and sensitivities -Continue aerosols as ordered -Continue incentive spirometry and Acapella -Patient was found to only be on oxygen at night so currently requiring more oxygen than typical however since we have not been treating the Proteus adequately hopefully the transition antibiotics will help Right upper extremity edema -Etiology remains unclear -Uric acid was normal -ESR and CRP are elevated however this could be related to his pneumonia as well -Vancomycin transition to doxycycline and will continue Zosyn for now -MRSA PCR negative -Aspirate of right elbow culture is pending but Gram stain is without organisms -Right upper extremity Dopplers negative for DVT -Continue vascular checks -Keep arm elevated is much as possible -Continue oxycodone as needed to help with pain related -ID is following and would like to continue to cover MRSA with doxycycline CKD stage IIIa -Slight trend up with serum creatinine however relatively stable -Continue to hold diuretics for now Chronic HFpEF due to diastolic dysfunction -Stable -Continue hold diuretics for now -Diuresis did not improve edema History of laryngeal cancer status post laryngectomy -Chronic tracheostomy tube -Cancer currently in remission Essential hypertension/hyperlipidemia -Diuretics on hold -Continue home amlodipine -Continue home atorvastatin COPD -Continue home Pulmicort -Outpatient follow-up recommended -Does not appear patient is chronic oxygen dependent -Patient is on chronic azithromycin for his COPD GERD -Continue home PPI Chronic iron deficiency anemia -Continue home iron supplementation -Hemoglobin is stable between 9 and 10 -Repeat CBC in a.m. Chronic atrial fibrillation -Continue Eliquis -Patient is rate controlled without any rate controlling medication DM-2 -Continue home Jardiance -Ozempic on hold -SSI -Cardiac/carb controlled diet -Fasting sugars 160 History of gout -No evidence of acute flare -Uric acid is normal Hypothyroidism -Continue home levothyroxine Obesity -BMI 36.1 -Recommend weight loss -Complicates treatment, prognosis, outcomes DVT prophylaxis -Continue home apixaban CODE STATUS Full code Medications at Discharge Home Medications levothyroxine 150 mcg tablet 150 mcg PO DAILY hypothyroidism 06/04/14 atorvastatin 40 mg tablet 40 mg PO DAILY@1700 cholesterol 04/12/17 ipratropium 0.5 mg-albuterol 3 mg (2.5 mg base)/3 mL nebulization soln 3 ml inhalation Q4H sob 04/12/17 flash glucose sensor (FreeStyle Zayra 2 Sensor kit) #2 ea 05/17/21 acetaminophen 325 mg tablet 650 mg PO DAILY PRN Pain 12/06/21 budesonide 0.5 mg/2 mL suspension for nebulization (Pulmicort) 0.5 mg inhalation BID sob 12/06/21 ferrous sulfate 325 mg (65 mg iron) tablet (FeroSul) 325 mg PO DAILY iron 08/29/22 potassium chloride 10 mEq capsule,extended release 20 meq PO DAILY mineral 11/13/22 pen needle, diabetic 32 gauge x 3/16 #100 ea 06/22/23 amlodipine 5 mg tablet 5 mg PO DAILY #90 tabs 09/17/23 apixaban 5 mg tablet (Eliquis) 5 mg PO BID blood thinner #180 tabs 09/20/23 buspirone 7.5 mg tablet 7.5 mg PO TID PRN PRN anxiety 10/01/23 cyanocobalamin (vitamin B-12) 500 mcg tablet 500 mcg PO DAILY 10/01/23 empagliflozin 10 mg tablet (Jardiance) 10 mg PO DAILY 10/01/23 omeprazole 20 mg capsule,delayed release 20 mg PO DAILY 10/01/23 semaglutide 2 mg/dose (8 mg/3 mL) subcutaneous pen injector (Ozempic) 2 mg subcut .COMPLEX diabetes 10/01/23 furosemide 40 mg tablet 40 mg PO BID EDEMA 1 month #60 tabs 10/25/23 azithromycin 250 mg tablet 250 mg PO DAILY 01/12/24 azithromycin 500 mg tablet 1,000 mg PO QWEEK 01/12/24 Weight / BMI Weight Weight: 119.2 kg Body Mass Index (BMI) 36.8 ABG / Lab / Microbiology Data 01/17/24 05:19 01/17/24 05:19 Laboratory: Laboratory Results - last 24 hr 01/15/24 09:40: Miscellaneous Cytology SEE PATHOLOGY REPORT 01/16/24 16:35: POC Glucose 173 H 01/16/24 20:20: POC Glucose 232 H 01/17/24 05:19: WBC 18.7 H, RBC 3.21 L, Hgb 9.0 L, Hct 28.3 L, MCV 88.2, MCH 28.0, MCHC 31.8 L, RDW Std Deviation 39.7, RDW Coeff of Alisson 12.2, Plt Count 317, MPV 10.0, Immature Gran % (Auto) 0.600, Neut % (Auto) 87.5 H, Lymph % (Auto) 2.1 L, [place] % (Auto) 9.6, Eos % (Auto) 0.0, Baso % (Auto) 0.2, Absolute Neuts (auto) 16.4 H, Absolute Lymphs (auto) 0.40 L, Nucleated RBC % 0, Diff Path Review June, Sodium 133 L, Potassium 3.4 L, Chloride 97 L, Carbon Dioxide 27.0, Anion Gap 9, BUN 35 H, Creatinine 2.05 H, Estim Creat Clear Calc 45.30, Est GFR (MDRD) Af Amer 42 L, Est GFR (MDRD) Non-Af 34 L, BUN/Creatinine Ratio 17.1, Glucose 180 H, Calcium 8.7, Phosphorus 4.2, Magnesium 2.1 01/17/24 06:05: POC Glucose 168 H 01/17/24 11:50: POC Glucose 258 H 01/17/24 12:36: Urine Color Yellow, Urine Clarity Cloudy, Urine pH 5.0, Ur Specific [place] 1.020, Urine Protein 100 H, Urine Glucose (UA) 100 H, Urine Ketones Negative, Urine Occult Blood 10 H, Urine Nitrite Negative, Urine Bilirubin Negative, Urine Urobilinogen Normal, Ur Leukocyte Esterase Negative, Ur Random Sodium 8 Microbiology: Microbiology 01/16/24 20:10 Mucosa - Nasopharyngeal Respiratory Panel (PCR) - Final 01/16/24 20:10 Nasal Secretion SARS-CoV-2 Antigen (Rapid) - Final 01/15/24 09:40 Fluid - Synovial (joint) Gram Stain - Final 01/15/24 09:40 Fluid - Synovial (joint) Body Fluid Culture - Preliminary No growth-Final to follow 01/13/24 05:45 Sputum, Tracheal Aspirate Gram Stain - Final 01/13/24 05:45 Sputum, Tracheal Aspirate Respiratory Culture - Final Pseudomonas aeruginosa Proteus hauseri 01/12/24 17:20 Blood Culture (Wb) - Left Forearm Blood Culture - Preliminary No growth in 48 hours. 01/13/24 01:35 Mucosa - Nasopharyngeal Respiratory Panel (PCR) - Final 01/12/24 19:30 Urine, Clean Catch Streptococcus pneumoniae Antigen (M - Final 01/12/24 19:30 Urine, Clean Catch Legionella Antigen - Final 01/12/24 17:47 Mucosa - Nose SARS-CoV-2, Influenza & RSV (PCR) - Final D/C Instructions DC O2, CPAP, BIPAP Needs PSN CPAP & BiPAP: BiPAP & CPAP Settings per PSN Fraction of Inspired Oxygen ( 28 01/17/24 06:55 FIO2) Meaningful Use Info Ischemic Stroke Statin Dosing Therapy Reference: STATIN DOSE THERAPY REFERENCE: * Patients > 75 years receive moderate or high dose statin therapy. * Patients 75 years or YOUNGER should receive HIGH intensity statin dose unless contraindicated. You will be required to document reason for non-treatment if statin daily dose does not meet guidelines. HIGH DOSE STATIN THERAPY DAILY Atorvastatin > than or = to 40 mg Rosuvastatin > than or = to 20 mg Amlodipine + Atorvastatin > than or = to 2.5/40 mg Ezetimibe + Simvastatin 10/80 mg Simvastatin 80mg Discharge Plan Admission Admit Date/Time: 01/12/24 21:00 Attending Provider: Zo Ballard Primary Care Provider: Chinmay Sin Consulting Providers: Himanshu Bermeo; Rafael Mcmillan; Ron Lockhart Discharge Orders/Prescriptions Prescriptions: No Action ferrous sulfate [FeroSul] 325 mg (65 mg iron) tablet 325 mg PO DAILY levothyroxine 150 MCG tablet 150 mcg PO DAILY Patient Comments: thyroid atorvastatin 40 MG tablet 40 mg PO DAILY@1700 ipratropium-albuterol 3 ML solution for nebulization 3 ml inhalation Q4H Patient Comments: breathing acetaminophen 325 mg Tablet 650 mg PO DAILY PRN (Reason: Pain) budesonide [Pulmicort] 0.5 mg/2 mL Suspension For Nebulization 0.5 mg INHALATION BID potassium chloride 10 mEq capsule, extended release 20 meq PO DAILY Patient Comments: TAKE 2 CAPSULES BY MOUTH ONCE DAILY (DME) pen needle, diabetic 32 gauge x 3/16 needle See Rx Instructions .Route Qty: 100 2RF Rx Instructions: As directed buspirone 7.5 mg tablet 7.5 mg PO TID PRN PRN (Reason: anxiety) Jardiance 10 mg tablet 10 mg PO DAILY cyanocobalamin (vitamin B-12) 500 mcg tablet 500 mcg PO DAILY omeprazole 20 mg capsule,delayed release(DR/EC) 20 mg PO DAILY Ozempic 2 mg/dose (8 mg/3 mL) pen injector 2 mg subcut .COMPLEX Rx Instructions: 2 mg subcutaneously once a week last taken Sunday09/28/23; azithromycin 250 mg tablet 250 mg PO DAILY azithromycin 500 mg tablet 1,000 mg PO QWEEK (DME) FreeStyle Zayra 2 Sensor Kit See Rx Instructions .ROUTE .MEDSUPPLY Qty: 2 6RF Rx Instructions: As directed amlodipine 5 mg tablet 5 mg PO DAILY Qty: 90 3RF Eliquis 5 mg tablet 5 mg PO BID Qty: 180 4RF furosemide 40 mg tablet 40 mg PO BID 30 Days Qty: 60 3RF Referrals / Follow Up: Chinmay Sin MD [Primary Care Provider] - Charges/Coding Visit Charges Inpatient E&M: 77084 Subs Hosp L2
--- NOTE | 2024-01-17 13:54 | PCM.PN.HOSP ---
Reason for Visit Reason for Visit: Shortness of breath/right upper extremity edema Subjective Subjective Patient states he feels his right arm is feeling better today. Breathing is improving slowly. Did have some fever last night. Workup thus far is negative. I do wonder if the transition of antibiotics contributed as we were actually now addressing the Pseudomonas since it is a multidrug-resistant organism if bacterial lysis contributed to this onset of fever. Will continue to monitor. Patient is aware that he will likely need to go be placed. He prefers TCU if possible. Case management/social work involved. I did discuss with him his renal function got a little bit worse and asked how much she was drinking. He stated he probably is not drinking enough. Lab work is apprenticeship representative of him being dry. Objective Data Objective Data Vital Signs: Vital Signs Temp Pulse Resp BP Pulse Ox O2 Del Method O2 Flow Rate 98.4 F 88 20 H 147/80 H 100 Trach Collar 6 01/17/24 09:00 01/17/24 10:57 01/17/24 10:57 01/17/24 09:00 01/17/24 09:00 01/17/24 09:56 01/17/24 13:16 FiO2 28 01/17/24 06:55 Oxygen Flow Rate (L/min) 6 Oxygen Delivery Method Trach Collar Weight: 119.2 kg Body Mass Index (BMI) 36.8 Intake & Output: Intake and Output for Last 24 Hours 01/15/24 01/16/24 01/17/24 23:59 23:59 23:59 Intake Total 200 / 200 750 / 990 1180 / 1180 Output Total 1050 / 1050 500 / 500 275 / 275 Balance -850 / -850 250 / 490 905 / 905 Lab / Micro Data 01/17/24 05:19 01/17/24 05:19 Labs: Laboratory Results - last 24 hr 01/16/24 16:35: POC Glucose 173 H 01/16/24 20:20: POC Glucose 232 H 01/17/24 05:19: WBC 18.7 H, RBC 3.21 L, Hgb 9.0 L, Hct 28.3 L, MCV 88.2, MCH 28.0, MCHC 31.8 L, RDW Std Deviation 39.7, RDW Coeff of Alisson 12.2, Plt Count 317, MPV 10.0, Immature Gran % (Auto) 0.600, Neut % (Auto) 87.5 H, Lymph % (Auto) 2.1 L, [place] % (Auto) 9.6, Eos % (Auto) 0.0, Baso % (Auto) 0.2, Absolute Neuts (auto) 16.4 H, Absolute Lymphs (auto) 0.40 L, Nucleated RBC % 0, Diff Path Review May foll, Sodium 133 L, Potassium 3.4 L, Chloride 97 L, Carbon Dioxide 27.0, Anion Gap 9, BUN 35 H, Creatinine 2.05 H, Estim Creat Clear Calc 45.30, Est GFR (MDRD) Af Amer 42 L, Est GFR (MDRD) Non-Af 34 L, BUN/Creatinine Ratio 17.1, Glucose 180 H, Calcium 8.7, Phosphorus 4.2, Magnesium 2.1 01/17/24 06:05: POC Glucose 168 H 01/17/24 11:50: POC Glucose 258 H 01/17/24 12:36: Urine Color Yellow, Urine Clarity Cloudy, Urine pH 5.0, Ur Specific Lorman 1.020, Urine Protein 100 H, Urine Glucose (UA) 100 H, Urine Ketones Negative, Urine Occult Blood 10 H, Urine Nitrite Negative, Urine Bilirubin Negative, Urine Urobilinogen Normal, Ur Leukocyte Esterase Negative, Ur Random Sodium 8 Micro: Microbiology 01/16/24 20:10 Mucosa - Nasopharyngeal Respiratory Panel (PCR) - Final 01/16/24 20:10 Nasal Secretion SARS-CoV-2 Antigen (Rapid) - Final 01/15/24 09:40 Fluid - Synovial (joint) Gram Stain - Final 01/15/24 09:40 Fluid - Synovial (joint) Body Fluid Culture - Preliminary No growth-Final to follow 01/13/24 05:45 Sputum, Tracheal Aspirate Gram Stain - Final 01/13/24 05:45 Sputum, Tracheal Aspirate Respiratory Culture - Final Pseudomonas aeruginosa Proteus hauseri 01/12/24 17:20 Blood Culture (Wb) - Left Forearm Blood Culture - Preliminary No growth in 48 hours. 01/13/24 01:35 Mucosa - Nasopharyngeal Respiratory Panel (PCR) - Final 01/12/24 19:30 Urine, Clean Catch Streptococcus pneumoniae Antigen (M - Final 01/12/24 19:30 Urine, Clean Catch Legionella Antigen - Final 01/12/24 17:47 Mucosa - Nose SARS-CoV-2, Influenza & RSV (PCR) - Final Physical Exam Const alert, oriented x3, no apparent distress and well nourished; Negative for average body habitus or healthy appearing Constitutional Narrative: Obese, upper middle-aged, white male, appears older than stated age, sitting up in bed, nursing at bedside, appears comfortable HEENT normocephalic, head/scalp atraumatic, hearing grossly normal bilaterally and moist oral mucous membranes Resp normal respiratory effort, no retractions, no use of accessory muscles and clear to auscultation bilaterally Resp Narrative: Diminished but clear Auscultation: Negative for crackles, rales, rhonchi or wheezes Cardio regular rate, regular rhythm, S1 normal heart sound, S2 normal heart sound, no murmurs, no rub, no gallops and no clicks GI normal to inspection, nondistended, normoactive bowel sounds, soft to palpation and non-tender GI Narrative: Large protuberant abdomen Extremity Extremity Narrative: Right upper extremity with ongoing swelling that is slowly improving, hand range of motion is improving and pain is decreasing, decreased erythema., No cyanosis or clubbing, trace bilateral lower extremity edema that is chronic Neuro oriented x3 and moves all extremities Neuro Narrative: Speech is breathy due to tracheostomy, patient is having pretty significant generalized weakness with mobility issues Speech: Negative for speech normal Psych affect normal Psych Narrative: Very pleasant, interacts appropriately Assessment & Plan Assessment/Plan (1) Effusion of elbow joint, right: (2) Gram-negative pneumonia: (3) History of tracheostomy: PLAN: Plan Gram-negative pneumonia secondary to multidrug-resistant Pseudomonas and Proteus -Pseudomonas is resistant to Levaquin but sensitive to Zosyn so antibiotics changed today -Currently on Zosyn and doxycycline day 2 of 7 -ID is following and will have to drive outpatient antibiotics at discharge -ID did document that he was on meropenem however discussed with him and he is fine with continuing Zosyn -Await identification and sensitivities -Continue aerosols as ordered -Continue incentive spirometry and Acapella -Respiratory status is improving -Patient was found to only be on oxygen at night so currently requiring more oxygen than typical however since we have not been treating the Proteus adequately hopefully the transition antibiotics will help Fever -This was new overnight -COVID/flu/RSV and respiratory viral panel are negative -UA is not suggestive of infection. Fever seem to be isolated and I highly suspect it may have been related to the antibiotic change and bacterialysis -ID is following -No changes in antibiotics now -Patient has not had any further fevers Right upper extremity edema -Etiology remains unclear however I highly suspect there may have been an underlying cellulitis as he has gotten better with broad-spectrum antibiotics -Uric acid was normal -ESR and CRP are elevated however this could be related to his pneumonia as well -Continue Zosyn and doxycycline per ID -MRSA PCR negative -Aspirate of right elbow culture is negative thus far -Right upper extremity Dopplers negative for DVT -Continue vascular checks -Keep arm elevated is much as possible -Continue oxycodone as needed to help with pain related ALEJANDRA on CKD stage IIIa -Despite stopping diuresis patient serum creatinine has trended up -Discussed with patient he has not been taking in much p.o. -Will give 2 L normal saline -UA is consistent with dehydration -Urine sodium is 8 and again consistent with dehydration -Suspect will improve with IV fluids -Repeat creatinine tomorrow Leukocytosis -trended up however patient appears to be volume concentrated -Repeat in a.m. Hypokalemia -P.o. potassium replacement Chronic HFpEF due to diastolic dysfunction -Stable -Continue hold diuretics for now -Diuresis did not improve edema History of laryngeal cancer status post laryngectomy -Chronic tracheostomy tube -Cancer currently in remission Essential hypertension/hyperlipidemia -Diuretics on hold -Continue home amlodipine -Continue home atorvastatin COPD -Continue home Pulmicort -Outpatient follow-up recommended -Does not appear patient is chronic oxygen dependent -Patient is on chronic azithromycin for his COPD GERD -Continue home PPI Chronic iron deficiency anemia -Continue home iron supplementation -Hemoglobin is stable between 9 and 10 -Repeat CBC in a.m. Chronic atrial fibrillation -Continue Eliquis -Patient is rate controlled without any rate controlling medication DM-2 -Continue home Jardiance -Ozempic on hold -SSI -Cardiac/carb controlled diet -Fasting sugars fairly well controlled History of gout -No evidence of acute flare -Uric acid is normal Hypothyroidism -Continue home levothyroxine Obesity -BMI 36.7 -Recommend weight loss -Complicates treatment, prognosis, outcomes DVT prophylaxis -Continue home apixaban CODE STATUS Full code Charges/Coding Visit Charges Inpatient E&M: 28635 Subs Hosp L2
--- NOTE | 2024-01-17 14:08 | CASEMGMT ---
Addendum entered by Gregoria Flores 01/17/24 14:20: TCU does not have available beds, therefore cannot accept. DC dental chairside assistant updated and referral to [facility]. [facility], pending acceptance and precert MARCO Madrigal Original Note: Social Work SW met with pt and to discuss SNF placement. Pt and agreeable that pt requires rehab prior to return home. After reviewing SNF list that had been provided, pt first choice is [facility]CU and second choice [facility]. Referral made to TCU. SW will await determination of acceptance. MARCO Madrigal
--- NOTE | 2024-01-17 14:35 | CASEMGMT ---
Addendum entered by Aishwarya Esparza 01/21/24 10:13: Updates sent to [facility]. Aishwarya Esparza DC Planning Asst. Addendum entered by Aishwarya Esparza 01/18/24 08:15: [facility] accepted and will submit for precert. Aishwarya Esparza DC Planning Asst. Original Note: Discharge Planning Referral sent via [facility] to [facility]. Aishwarya Esparza DC Planning Asst.
[2024-01-17 15:55] LABS: Pathologist Review Reviewed
[2024-01-17 17:18] LABS: Bedside Glucose 204 mg/dL (74-106)
[2024-01-17] MEDS: Acetaminophen 500 MG Tablet 1000 MG PO (23:17)
[2024-01-17] MEDS: Atorvastatin Calcium 40 MG Tablet PO (23:17)
[2024-01-17] MEDS: guaiFENesin 1,200 MG Tablet 1200 MG PO (23:17)
[2024-01-18] VITALS (10 sets, daily range): BP systolic 128–145; BP diastolic 61–73; PULSE 85–101; RESP 18–20; TEMP 36.3–37.2; O2SAT 96–99; BMI 36.8
[2024-01-18] MEDS: Ipratropium/Albuterol Sulfate 3 ML AMPUL.NEB INHALATION ×5 (00:19→19:22)
[2024-01-18 00:57] LABS: Bedside Glucose 176 mg/dL (74-106)
[2024-01-18 06:13] LABS: Hemoglobin 8.6 g/dL (13.0-16.5); Mean Corp Hgb Conc 33.1 g/dL (32-36); Mean Corpuscular Volume 87.5 fL (80-94); Mean Platelet Vol. 9.8 fl (6.2-12.0); Platelet Count 312 K/mm3 (150-450); RBC Distribution Width CV 12.3 % (11.6-14.6); RBC Distribution Width SD 39.6 fl (35.1-43.9); Red Blood Count 2.97 M/mm3 (4.6-6.2); White Blood Count 16.3 K/mm3 (4.4-11.0)
[2024-01-18] MEDS: Levothyroxine 150 MCG Tablet PO (06:16)
[2024-01-18] MEDS: Insulin Lispro 100 UNIT/ML INSULN.PEN SC ×4 (06:16→21:32)
[2024-01-18] MEDS: Piperacil/Tazobactam 3.375 GM in 0.9% Normal Saline (50mL MB+) 50 ML IV ×3 (06:16→21:33)
[2024-01-18 06:42] LABS: Bedside Glucose 159 mg/dL (74-106)
[2024-01-18 06:48] LABS: Anion Gap 9 (5-15); BUN 39 mg/dL (7-18); BUN/Creat Ratio 20.4 RATIO (10-20); Calcium,Total 8.7 mg/dL (8.5-10.1); Chloride 99 mmol/L (98-107); Creatinine, Serum 1.91 mg/dL (0.70-1.30); EST Glomerular Filtration Rate 37 mL/min (>60); Est Glom Filt Rate - Afr Amer 45 mL/min (>60); Glucose 167 mg/dL (74-106); Potassium 3.6 mmol/L (3.5-5.1); Sodium Level 133 mmol/L (136-145)
[2024-01-18] MEDS: Budesonide Respules 0.5 MG/2 ML AMPUL.NEB. INHALATION ×2 (07:03→19:22)
[2024-01-18] MEDS: Ferrous Sulfate 325 MG Tablet PO (10:02)
[2024-01-18] MEDS: Doxycycline 100 MG CAPSULE PO ×2 (10:03→21:32)
[2024-01-18] MEDS: guaiFENesin 1,200 MG Tablet 1200 MG PO ×2 (10:03→21:32)
[2024-01-18] MEDS: Empagliflozin 10 MG Tablet PO (10:03)
[2024-01-18] MEDS: Cyanocobalamin 500 MCG Tablet PO (10:03)
[2024-01-18] MEDS: amLODIPine 5 MG Tablet PO (10:03)
[2024-01-18] MEDS: Lactobacillis Acidophilus 1 CAP PO ×4 (10:03→21:32)
[2024-01-18] MEDS: APIXABAN 5 MG TABLET PO ×2 (10:03→21:32)
[2024-01-18] MEDS: oxyCODONE 5 MG Tablet PO ×2 (10:11→18:22)
[2024-01-18] MEDS: 0.9% Saline Lock 10 ML Syringe IV ×2 (10:11→18:22)
[2024-01-18] MEDS: Acetaminophen 500 MG Tablet 1000 MG PO ×2 (11:56→16:20)
[2024-01-18 12:07] LABS: Bedside Glucose 263 mg/dL (74-106)
--- NOTE | 2024-01-18 12:18 | PN_ITS ---
Subjective Subjective Patient seen and examined. He was lying comfortably in bed. He had no active complaints. He denied any fever, chills, palpitations, dizziness, nausea vomiting or any other symptoms. Review of systems otherwise negative. Objective Data Objective Data Vital Signs: Vital Signs Temp Pulse Resp BP Pulse Ox O2 Del Method O2 Flow Rate 98.8 F 85 20 H 128/61 H 99 Trach Collar 6 01/18/24 09:55 01/18/24 11:08 01/18/24 11:08 01/18/24 09:55 01/18/24 09:55 01/18/24 10:00 01/18/24 10:00 FiO2 28 01/18/24 10:00 Oxygen Flow Rate (L/min) 6 Oxygen Delivery Method Trach Collar Weight: 263 lb 10.766 oz Body Mass Index (BMI) 36.8 Intake & Output: Intake and Output for Last 24 Hours 01/16/24 01/17/24 01/18/24 23:59 23:59 23:59 Intake Total 750 / 990 2470.00 / 2470.00 1100 / 1100 Output Total 500 / 500 475 / 475 400 / 400 Balance 250 / 490 / 700 / 700 Lab / Micro Data 01/18/24 05:46 01/18/24 05:46 Labs: Laboratory Results - last 24 hr 01/17/24 05:19: Diff Path Review Reviewed 01/17/24 12:36: Urine Color Yellow, Urine Clarity Cloudy, Urine pH 5.0, Ur Specific Kimberly 1.020, Urine Protein 100 H, Urine Glucose (UA) 100 H, Urine Ketones Negative, Urine Occult Blood 10 H, Urine Nitrite Negative, Urine Bilirubin Negative, Urine Urobilinogen Normal, Ur Leukocyte Esterase Negative, Ur Random Sodium 8 01/17/24 16:49: POC Glucose 204 H 01/17/24 23:15: POC Glucose 176 H 01/18/24 05:46: WBC 16.3 H, RBC 2.97 L, Hgb 8.6 L, Hct 26.0 L, MCV 87.5, MCH 29.0, MCHC 33.1, RDW Std Deviation 39.6, RDW Coeff of Alisson 12.3, Plt Count 312, MPV 9.8, Sodium 133 L, Potassium 3.6, Chloride 99, Carbon Dioxide 25.0, Anion Gap 9, BUN 39 H, Creatinine 1.91 H, Estim Creat Clear Calc 48.70, Est GFR (MDRD) Af Amer 45 L, Est GFR (MDRD) Non-Af 37 L, BUN/Creatinine Ratio 20.4 H, Glucose 167 H, Calcium 8.7 01/18/24 06:10: POC Glucose 159 H 01/18/24 11:47: POC Glucose 263 H Micro: Microbiology 01/13/24 05:45 Sputum, Tracheal Aspirate Gram Stain - Final 01/13/24 05:45 Sputum, Tracheal Aspirate Respiratory Culture - Final Pseudomonas aeruginosa Proteus hauseri 01/12/24 17:20 Blood Culture (Wb) - Left Forearm Blood Culture - Final No growth in 5 days. 01/15/24 09:40 Fluid - Synovial (joint) Gram Stain - Final 01/15/24 09:40 Fluid - Synovial (joint) Body Fluid Culture - Preliminary No growth-Final to follow 01/15/24 09:40 Fluid - Synovial (joint) Anaerobic Culture - Preliminary No growth in 48 hours. 01/16/24 20:10 Mucosa - Nasopharyngeal Respiratory Panel (PCR) - Final 01/16/24 20:10 Nasal Secretion SARS-CoV-2 Antigen (Rapid) - Final 01/13/24 01:35 Mucosa - Nasopharyngeal Respiratory Panel (PCR) - Final 01/12/24 19:30 Urine, Clean Catch Streptococcus pneumoniae Antigen (M - Final 01/12/24 19:30 Urine, Clean Catch Legionella Antigen - Final 01/12/24 17:47 Mucosa - Nose SARS-CoV-2, Influenza & RSV (PCR) - Final Physical Exam Const alert, oriented x3 and no apparent distress Constitutional Narrative: obese General Appearance: cooperative HEENT normocephalic, head/scalp atraumatic and moist oral mucous membranes Eyes PERRL and EOMs intact bilaterally Neck no lymphadenopathy and supple Lymph Lymphatic: no lymphadenopathy noted and no lymphedema noted Resp Resp Narrative: mildly diminished breath sounds bilaterally, no wheezes or crackles. On 6L of oxygen via tracheostomy. Cardio regular rate, regular rhythm, S1 normal heart sound, S2 normal heart sound and no murmurs GI normal to inspection, nondistended, normoactive bowel sounds, soft to palpation and non-tender Extremity Extremity Narrative: LUE edematous, swollen elbow, mildly tender to touch, able to flex elbow fully. Skin General Skin Exam: no breakdown Neuro CN's II-XII intact bilaterally and no focal motor deficits Motor Exam: strength 5/5 throughout and general weakness Psych thought process normal, cooperative and affect normal Appearance: appropriate Assessment & Plan Assessment/Plan (1) Effusion of elbow joint, right: (2) Gram-negative pneumonia: (3) Obesity (BMI 30-39.9): PLAN: Plan #Pneumonia due to Pseudomonas and Proteus * Currently on IV Zosyn and doxycycline. ID is also on board. * Now on 6 L of oxygen via history Stomach. He was previously on 3 L of oxygen at home. * Titrate oxygen to maintain saturation above 90%. Breathing treatments with bronchodilators. * #RUE edema * concern for cellulitis of the RLE. RLE is still swollen, and he has pain around the elbow site. * ESR and CRP were elevated though it was thought it would be due to to the pneumonia. uric acid level was normal * aspirate of the right elbow culture was negaitve. Duplex of the RUE was also negative for DVT * on oxycodone prn * PT/OT on board * #Sharmin on CKD IIIa * encourage oral hydration. also hydrated gently with IVF * Creatinine today is 1.91. It is down from 2.05 yesterday. Baseline creatinine is around 1.2. * #Hypokalemia: resolved. Potassium is 3.6. #HFpEF: diuretics held due to impaired kidney function. Will monitor. Breathing treatment with bronchodilators #Benign essential hypertension: on amlodipine. #History of laryngeal cancer s/p laryngectomy: has a Tracheostomy tube in place #Chronic A-fib: On Eliquis #Type 2 diabetes mellitus: On Jardiance. Insulin/scale. Accu-Cheks ACHS. Also on insulin #History of gout: No evidence of acute flare. Uric acid was normal #Hypothyroidism:on synthroid #OBesity: BMi is 36.8. Complicates acute care, expected recovery and prognosis DVT prophylaxis: on eliquis. Disposition: awaiting placement. Charges/Coding Visit Charges Inpatient E&M: 22457 Subs Hosp L2
--- NOTE | 2024-01-18 14:09 | CASEMGMT ---
[facility] patient and will start the pre-cert. AILYN notified patient that TCU was full, but [facility] accepted [facility]. AILYN explained he will stay at [facility] until his insurance approves him. Patient thanked AILYN. Plan: [facility] pending insurance approval. Alessandra FLYNN
--- NOTE | 2024-01-18 14:37 | PCM.PN.ID ---
Physical Exam Narrative Feeling better, arm improved, no fever Const alert and no apparent distress General Appearance: cooperative Resp normal air movement and clear to auscultation bilaterally Cardio regular rate and regular rhythm GI soft to palpation, non-tender and non-distended Extremity General Extremity: edema Skin Skin Narrative: RUE less red ID ID: Route of nutrition/ use of supplements: [] Nutritional Intake: [] IV Site: [] Graf Catheter: [] Assessment & Plan Assessment/Plan (1) Effusion of elbow joint, right: (2) Gram-negative pneumonia: PLAN: Cont zosyn for lungs and doxy for skin coverage. Overall improving. Stop date planned for 01/20. Will follow (3) History of tracheostomy:
--- NOTE | 2024-01-18 16:22 | CASEMGMT ---
SW completed a PASRR in [employer] system. Plan: [facility] under skilled level of care pending pre-cert. Alessandra Cooper [employer]POR[employer]OC[employer]
[2024-01-18 16:23] LABS: Magnesium 2.4 mg/dL (1.6-2.6)
[2024-01-18 17:34] LABS: Bedside Glucose 190 mg/dL (74-106)
[2024-01-18] MEDS: Atorvastatin Calcium 40 MG Tablet PO (21:32)
[2024-01-19] VITALS (11 sets, daily range): BP systolic 134–140; BP diastolic 65–71; PULSE 72–90; RESP 18; TEMP 36.3–37.2; O2SAT 93–99
[2024-01-19 02:57] LABS: Bedside Glucose 229 mg/dL (74-106)
[2024-01-19] MEDS: Ipratropium/Albuterol Sulfate 3 ML AMPUL.NEB INHALATION ×5 (03:27→19:22)
[2024-01-19] MEDS: Levothyroxine 150 MCG Tablet PO (06:30)
[2024-01-19] MEDS: Piperacil/Tazobactam 3.375 GM in 0.9% Normal Saline (50mL MB+) 50 ML IV ×3 (06:30→21:54)
[2024-01-19] MEDS: Budesonide Respules 0.5 MG/2 ML AMPUL.NEB. INHALATION ×2 (06:56→19:22)
[2024-01-19 07:26] LABS: Absolute Lymphocyte Count 0.53 X10^3/uL (0.83-4.51); Absolute Neutrophil Count 12.9 X10^3/uL (2.0-7.7); Basophil# 0.03 X10^3/uL; Basophil% 0.2 % (0-1); Eosinophil# 0.02 X10^3/uL; Eosinophils% 0.1 % (0-5); Hematocrit 26.1 % (40-54); Hemoglobin 8.5 g/dL (13.0-16.5); Lymphocyte # 0.53 X10^3/ul (0.83-4.51); Lymphocyte % 3.6 % (19-41); Mean Corp Hgb Conc 32.6 g/dL (32-36); Mean Corpuscular Hgb 28.8 pg (27.0-32.0); Mean Corpuscular Volume 88.5 fL (80-94); Mean Platelet Vol. 9.7 fl (6.2-12.0); Monocyte# 1.35 X10^3/uL; Monocyte% 9.1 % (0-10); NRBC Flagged by Analyzer 0 % (0-5); Neutrophil # 12.87 X10^3/uL (2.7-7.7); Neutrophil % 86.5 % (47-70); POSITIVE DIFFERENTIAL YES; Platelet Count 325 K/mm3 (150-450); RBC Distribution Width CV 12.5 % (11.6-14.6); RBC Distribution Width SD 40.8 fl (35.1-43.9); Red Blood Count 2.95 M/mm3 (4.6-6.2); White Blood Count 14.9 K/mm3 (4.4-11.0)
[2024-01-19 07:45] LABS: Anion Gap 7 (5-15); BUN 42 mg/dL (7-18); Calcium,Total 8.8 mg/dL (8.5-10.1); Chloride 100 mmol/L (98-107); Creatinine, Serum 1.83 mg/dL (0.70-1.30); EST Glomerular Filtration Rate 39 mL/min (>60); Est Glom Filt Rate - Afr Amer 47 mL/min (>60); Estimated Creatinine Clearance 50.83 ml/min; Glucose 168 mg/dL (74-106); Potassium 3.6 mmol/L (3.5-5.1); Sodium Level 136 mmol/L (136-145)
--- NOTE | 2024-01-19 08:31 | VDLE_ITS ---
Reason For Study: BLE Swelling RIGHT LEFT GSV is normal. GSV is normal. CFV is compressible, spontaneous, phasic, CFV is compressible, spontaneous, phasic, competent and demonstrates normal competent, and demonstrates normal augmentation. augmentation. FV is compressible, spontaneous, phasic, FV is compressible, spontaneous, phasic, competent and demonstrates normal competent and demonstrates normal augmentation. augmentation. POP V is compressible, spontaneous, phasic, POP V is compressible, spontaneous, phasic, competent and demonstrates normal competent and demonstrates normal augmentation. augmentation. T/P Trunk is compressible. T/P Trunk is compressible. PTV is compressible. PTV is compressible. RT PerV is compressible. LT PerV is compressible. Hypoechoic Non vascularized area measuring Lt SSV PARTIALLY COMPRESSIBLE w/ bright approximately 2.95cm x 0.87cm noted in Rt POP intraluminal echoes. Finding is consistent Fossa. with CHRONIC SVT. Procedure This is a venous duplex using B-mode, color flow and spectral Doppler. Exam performed portable in patient room. The exam was diagnostic. A preliminary report was called and/or faxed to PCU reset merchandiser Amanda. VL/Venous Duplex US - Gavin Extrem Interpretation Summary Chronic superficial vein thrombosis is noted in the left small saphenous vein. Deep veins of the bilateral lower extremities are patent and compressible segme ntally. There is no evidence of bilateral lower extremity deep vein thrombosis. The bilateral great saphenous veins appear patent and compressible segmentally. Hypoechoic non vascularized area measuring approximately 2.95cm x 0.87cm noted in right popliteal fossa. Ordering Physician: Bridgett Dale Referring Physician: Himanshu Bermeo Performed By: Mina Colindres, RVT
[2024-01-19] MEDS: Empagliflozin 10 MG Tablet PO (08:43)
[2024-01-19] MEDS: APIXABAN 5 MG TABLET PO ×2 (08:43→21:57)
[2024-01-19] MEDS: Cyanocobalamin 500 MCG Tablet PO (08:43)
[2024-01-19] MEDS: guaiFENesin 1,200 MG Tablet 1200 MG PO ×2 (08:43→21:57)
[2024-01-19] MEDS: Doxycycline 100 MG CAPSULE PO ×2 (08:43→21:58)
[2024-01-19] MEDS: Lactobacillis Acidophilus 1 CAP PO ×4 (08:43→21:57)
[2024-01-19] MEDS: amLODIPine 5 MG Tablet PO (08:44)
[2024-01-19 08:56] LABS: Bedside Glucose 160 mg/dL (74-106)
[2024-01-19] MEDS: Furosemide 40 MG/4 ML Vial IV (08:59)
[2024-01-19] MEDS: oxyCODONE 5 MG Tablet PO ×2 (08:59→14:18)
[2024-01-19] MEDS: Senna/Docusate Sodium 1 Tablet 2 TABLET PO (08:59)
[2024-01-19] MEDS: 0.9% Saline Lock 10 ML Syringe IV ×2 (09:06→14:20)
--- NOTE | 2024-01-19 11:21 | PN_ITS ---
Subjective Subjective Patient seen and examined. He had no active complaints. He still on 6 L of oxygen. He is however saturating at 100%. Review of symptoms otherwise negative. He has remained hemodynamically stable. Objective Data Objective Data Vital Signs: Vital Signs Temp Pulse Resp BP Pulse Ox O2 Del Method O2 Flow Rate 98.4 F 90 18 134/71 H 96 Trach Collar 6 01/19/24 08:40 01/19/24 11:05 01/19/24 11:05 01/19/24 08:40 01/19/24 08:40 01/19/24 08:40 01/19/24 11:05 FiO2 28 01/19/24 08:40 Oxygen Flow Rate (L/min) 6 Oxygen Delivery Method Trach Collar Weight: 263 lb 10.766 oz Body Mass Index (BMI) 36.8 Intake & Output: Intake and Output for Last 24 Hours 01/17/24 01/18/24 01/19/24 23:59 23:59 23:59 Intake Total 2470.00 / 2470.00 2090 / 2240 198.33 / 198.33 Output Total 475 / 475 1400 / 1400 Balance 1994.00 / 1994. 690 / 840 198.33 / 198.33 Lab / Micro Data 01/19/24 07:16 01/19/24 07:16 Labs: Laboratory Results - last 24 hr 01/18/24 05:46: Magnesium 2.4 01/18/24 11:47: POC Glucose 263 H 01/18/24 16:07: POC Glucose 190 H 01/18/24 21:31: POC Glucose 229 H 01/19/24 06:16: POC Glucose 160 H 01/19/24 07:16: WBC 14.9 H, RBC 2.95 L, Hgb 8.5 L, Hct 26.1 L, MCV 88.5, MCH 28.8, MCHC 32.6, RDW Std Deviation 40.8, RDW Coeff of Alisson 12.5, Plt Count 325, MPV 9.7, Immature Gran % (Auto) 0.500, Neut % (Auto) 86.5 H, Lymph % (Auto) 3.6 L, [place] % (Auto) 9.1, Eos % (Auto) 0.1, Baso % (Auto) 0.2, Absolute Neuts (auto) 12.9 H, Absolute Lymphs (auto) 0.53 L, Nucleated RBC % 0, Sodium 136, Potassium 3.6, Chloride 100, Carbon Dioxide 29.0, Anion Gap 7, BUN 42 H, Creatinine 1.83 H , Estim Creat Clear Calc 50.83, Est GFR (MDRD) Af Amer 47 L, Est GFR (MDRD) Non- Af 39 L, BUN/Creatinine Ratio 23.0 H, Glucose 168 H, Calcium 8.8 Micro: Microbiology 01/13/24 05:45 Sputum, Tracheal Aspirate Gram Stain - Final 01/13/24 05:45 Sputum, Tracheal Aspirate Respiratory Culture - Final Pseudomonas aeruginosa Proteus hauseri 01/12/24 17:20 Blood Culture (Wb) - Left Forearm Blood Culture - Final No growth in 5 days. 01/15/24 09:40 Fluid - Synovial (joint) Gram Stain - Final 01/15/24 09:40 Fluid - Synovial (joint) Body Fluid Culture - Preliminary No growth-Final to follow 01/15/24 09:40 Fluid - Synovial (joint) Anaerobic Culture - Preliminary No growth in 48 hours. 01/16/24 20:10 Mucosa - Nasopharyngeal Respiratory Panel (PCR) - Final 01/16/24 20:10 Nasal Secretion SARS-CoV-2 Antigen (Rapid) - Final 01/13/24 01:35 Mucosa - Nasopharyngeal Respiratory Panel (PCR) - Final 01/12/24 19:30 Urine, Clean Catch Streptococcus pneumoniae Antigen (M - Final 01/12/24 19:30 Urine, Clean Catch Legionella Antigen - Final 01/12/24 17:47 Mucosa - Nose SARS-CoV-2, Influenza & RSV (PCR) - Final Physical Exam Const alert, oriented x3, no apparent distress and well nourished; Negative for average body habitus or healthy appearing Constitutional Narrative: obese General Appearance: cooperative, well kempt and well developed Orientation / Consciousness: awake, oriented to person, oriented to place and oriented to time HEENT normocephalic, head/scalp atraumatic, hearing grossly normal bilaterally and moist oral mucous membranes Eyes PERRL, EOMs intact bilaterally and conjunctivae normal Eyes Narrative: No scleral icterus Neck no lymphadenopathy, supple and no JVD Neck Narrative: Trachea is midline with tracheostomy tube in place, covered with trach mask Lymph Lymphatic: no lymphadenopathy noted and no lymphedema noted Resp normal respiratory effort, no retractions and no use of accessory muscles Resp Narrative: mildly diminished breath sounds bilaterally, no wheezes or crackles. On 6L of oxygen via tracheostomy. Auscultation: Negative for crackles, rales, rhonchi or wheezes Cardio regular rate, regular rhythm, S1 normal heart sound, S2 normal heart sound, no murmurs, no rub, no gallops and no clicks GI normal to inspection, nondistended, normoactive bowel sounds, soft to palpation, non-tender and non-distended GI Narrative: obese abdomen Extremity Extremity Narrative: LUE edematous, swollen elbow, mildly tender to touch, able to flex elbow fully. LUE wrapped in bandage. Skin no rashes or lesions noted Skin Narrative: as under extremities Neuro oriented x3, CN's II-XII intact bilaterally, moves all extremities, no focal motor deficits and no sensory deficits noted Sensorium / Orientation: awake, alert, oriented to person, oriented to place and oriented to time Speech: Negative for speech normal Motor Exam: general weakness Psych thought process normal, cooperative and affect normal Psych Narrative: Very pleasant, interacts appropriately Appearance: appropriate Assessment & Plan Assessment/Plan (1) Effusion of elbow joint, right: (2) Gram-negative pneumonia: (3) Obesity (BMI 30-39.9): PLAN: Plan #Pneumonia due to Pseudomonas and Proteus * Currently on IV Zosyn and doxycycline. ID is also on board. * Now on 6 L of oxygen via tracheostomy. He was previously on 3 L of oxygen at home at night and usually is on room air during the day * Titrate oxygen to maintain saturation above 90%. Breathing treatments with bronchodilators. * ID on board. Per ID to continue Zosyn and doxycycline till 01/21/2024. * #RUE edema * concern for cellulitis of the RLE. RLE is still swollen, and he has pain around the elbow site. * ESR and CRP were elevated though it was thought it would be due to to the pneumonia. uric acid level was normal * aspirate of the right elbow culture was negative. Duplex of the RUE was also negative for DVT * on oxycodone prn * PT/OT on board * #Sharmin on CKD IIIa * encourage oral hydration. also hydrated gently with IVF * Creatinine today is 1.83. Encourage oral hydration * #Hypokalemia: resolved. Potassium is 3.6. #HFpEF: diuretics held due to impaired kidney function. Will monitor. Breathing treatment with bronchodilators #Benign essential hypertension: on amlodipine. #History of laryngeal cancer s/p laryngectomy: has a Tracheostomy tube in place #Chronic A-fib: On Eliquis #Type 2 diabetes mellitus: On Jardiance. Insulin sliding scale. Accu-Cheks ACHS. Also on insulin #History of gout: No evidence of acute flare. Uric acid was normal #Hypothyroidism:on synthroid #Obesity: BMi is 36.8. Complicates acute care, expected recovery and prognosis DVT prophylaxis: on eliquis. Disposition: awaiting placement. Charges/Coding Visit Charges Inpatient E&M: 75310 Subs Hosp L2
[2024-01-19] MEDS: Insulin Lispro 100 UNIT/ML INSULN.PEN SC ×3 (12:06→21:59)
[2024-01-19] MEDS: Ferrous Sulfate 325 MG Tablet PO (12:06)
[2024-01-19] MEDS: Acetaminophen 500 MG Tablet 1000 MG PO ×2 (12:12→21:56)
[2024-01-19 12:26] LABS: Bedside Glucose 311 mg/dL (74-106)
[2024-01-19 18:05] LABS: Bedside Glucose 210 mg/dL (74-106)
[2024-01-19] MEDS: Atorvastatin Calcium 40 MG Tablet PO (21:57)
[2024-01-19 22:20] LABS: Bedside Glucose 195 mg/dL (74-106)
[2024-01-20] VITALS (12 sets, daily range): BP systolic 127–148; BP diastolic 63–74; PULSE 65–101; RESP 18–20; TEMP 36.1–37.6; O2SAT 92–98
[2024-01-20] MEDS: oxyCODONE 5 MG Tablet PO ×3 (03:11→13:37)
[2024-01-20] MEDS: Piperacil/Tazobactam 3.375 GM in 0.9% Normal Saline (50mL MB+) 50 ML IV ×3 (06:18→21:38)
[2024-01-20] MEDS: Levothyroxine 150 MCG Tablet PO (06:20)
[2024-01-20] MEDS: Insulin Lispro 100 UNIT/ML INSULN.PEN SC ×4 (06:24→21:43)
[2024-01-20 06:34] LABS: Absolute Neutrophil Count 10.7 X10^3/uL (2.0-7.7); Basophil# 0.03 X10^3/uL; Basophil% 0.2 % (0-1); Eosinophil# 0.09 X10^3/uL; Eosinophils% 0.7 % (0-5); Hemoglobin 8.3 g/dL (13.0-16.5); Lymphocyte % 3.9 % (19-41); Mean Corp Hgb Conc 31.9 g/dL (32-36); Mean Corpuscular Hgb 28.6 pg (27.0-32.0); Mean Corpuscular Volume 89.7 fL (80-94); Monocyte# 1.47 X10^3/uL; Monocyte% 11.4 % (0-10); NRBC Flagged by Analyzer 0 % (0-5); Neutrophil % 83.3 % (47-70); POSITIVE DIFFERENTIAL YES; Platelet Count 342 K/mm3 (150-450); RBC Distribution Width CV 12.5 % (11.6-14.6); RBC Distribution Width SD 41.5 fl (35.1-43.9); White Blood Count 12.9 K/mm3 (4.4-11.0)
[2024-01-20 06:51] LABS: Bedside Glucose 153 mg/dL (74-106)
[2024-01-20 07:07] LABS: Anion Gap 8 (5-15); BUN 45 mg/dL (7-18); BUN/Creat Ratio 24.6 RATIO (10-20); Calcium,Total 8.9 mg/dL (8.5-10.1); Chloride 98 mmol/L (98-107); Creatinine, Serum 1.83 mg/dL (0.70-1.30); EST Glomerular Filtration Rate 39 mL/min (>60); Est Glom Filt Rate - Afr Amer 47 mL/min (>60); Estimated Creatinine Clearance 50.83 ml/min; Glucose 154 mg/dL (74-106); Potassium 3.5 mmol/L (3.5-5.1); Sodium Level 133 mmol/L (136-145)
[2024-01-20] MEDS: Ipratropium/Albuterol Sulfate 3 ML AMPUL.NEB INHALATION ×5 (07:16→23:12)
[2024-01-20] MEDS: Budesonide Respules 0.5 MG/2 ML AMPUL.NEB. INHALATION ×2 (07:16→19:24)
[2024-01-20] MEDS: APIXABAN 5 MG TABLET PO ×2 (08:15→21:40)
[2024-01-20] MEDS: Empagliflozin 10 MG Tablet PO (08:15)
[2024-01-20] MEDS: amLODIPine 5 MG Tablet PO (08:15)
[2024-01-20] MEDS: guaiFENesin 1,200 MG Tablet 1200 MG PO ×2 (08:15→21:47)
[2024-01-20] MEDS: Doxycycline 100 MG CAPSULE PO ×2 (08:15→21:40)
[2024-01-20] MEDS: Lactobacillis Acidophilus 1 CAP PO ×4 (08:15→21:40)
[2024-01-20] MEDS: Cyanocobalamin 500 MCG Tablet PO (08:15)
[2024-01-20] MEDS: Senna/Docusate Sodium 1 Tablet 2 TABLET PO (08:18)
[2024-01-20] MEDS: 0.9% Saline Lock 10 ML Syringe IV ×2 (08:19→14:50)
--- NOTE | 2024-01-20 10:11 | PN_ITS ---
Subjective Subjective Patient seen and examined. He had no active complaints. He had an uneventful night. Review of systems otherwise negative. He remains on 6 L of oxygen at FiO2 of 28% which is apparently equivalent to the 2 to 3 L of oxygen that he takes at home. Review of systems otherwise negative. He is still awaiting placement. Objective Data Objective Data Vital Signs: Vital Signs Temp Pulse Resp BP Pulse Ox O2 Del Method O2 Flow Rate 98.1 F 89 18 148/71 H 97 Trach Collar 6 01/20/24 08:04 01/20/24 08:04 01/20/24 08:04 01/20/24 08:04 01/20/24 08:04 01/20/24 08:15 01/20/24 08:15 FiO2 28 01/20/24 08:15 Oxygen Flow Rate (L/min) 6 Oxygen Delivery Method Trach Collar Weight: 263 lb 10.766 oz Body Mass Index (BMI) 36.8 Intake & Output: Intake and Output for Last 24 Hours 01/18/24 01/19/24 01/20/24 23:59 23:59 23:59 Intake Total 2090 / 2240 1598.33 / 1598.33 50 / 50 Output Total 1400 / 1400 2400 / 2400 200 / 200 Balance 690 / 840 -801.67 / -801.67 -150 / -150 Lab / Micro Data 01/20/24 05:00 01/20/24 05:00 Labs: Laboratory Results - last 24 hr 01/19/24 12:03: POC Glucose 311 H 01/19/24 17:12: POC Glucose 210 H 01/19/24 21:59: POC Glucose 195 H 01/20/24 05:00: WBC 12.9 H, RBC 2.90 L, Hgb 8.3 L, Hct 26.0 L, MCV 89.7, MCH 28.6, MCHC 31.9 L, RDW Std Deviation 41.5, RDW Coeff of Alisson 12.5, Plt Count 342, MPV 10.0, Immature Gran % (Auto) 0.500, Neut % (Auto) 83.3 H, Lymph % (Auto) 3.9 L, [place] % (Auto) 11.4 H, Eos % (Auto) 0.7, Baso % (Auto) 0.2, Absolute Neuts (auto) 10.7 H, Absolute Lymphs (auto) 0.50 L, Nucleated RBC % 0, Sodium 133 L, Potassium 3.5, Chloride 98, Carbon Dioxide 26.0, Anion Gap 8, BUN 45 H, C reatinine 1.83 H, Estim Creat Clear Calc 50.83, Est GFR (MDRD) Af Amer 47 L, Est GFR (MDRD) Non-Af 39 L, BUN/Creatinine Ratio 24.6 H, Glucose 154 H, Calcium 8.9 01/20/24 06:23: POC Glucose 153 H Micro: Microbiology 01/15/24 09:40 Fluid - Synovial (joint) Gram Stain - Final 01/15/24 09:40 Fluid - Synovial (joint) Body Fluid Culture - Final Culture exhibits no growth. 01/15/24 09:40 Fluid - Synovial (joint) Anaerobic Culture - Preliminary No growth in 48 hours. 01/13/24 05:45 Sputum, Tracheal Aspirate Gram Stain - Final 01/13/24 05:45 Sputum, Tracheal Aspirate Respiratory Culture - Final Pseudomonas aeruginosa Proteus hauseri 01/12/24 17:20 Blood Culture (Wb) - Left Forearm Blood Culture - Final No growth in 5 days. 01/16/24 20:10 Mucosa - Nasopharyngeal Respiratory Panel (PCR) - Final 01/16/24 20:10 Nasal Secretion SARS-CoV-2 Antigen (Rapid) - Final 01/13/24 01:35 Mucosa - Nasopharyngeal Respiratory Panel (PCR) - Final 01/12/24 19:30 Urine, Clean Catch Streptococcus pneumoniae Antigen (M - Final 01/12/24 19:30 Urine, Clean Catch Legionella Antigen - Final 01/12/24 17:47 Mucosa - Nose SARS-CoV-2, Influenza & RSV (PCR) - Final Physical Exam Const alert, oriented x3, no apparent distress, average body habitus, healthy appearing and well nourished Constitutional Narrative: obese General Appearance: cooperative, well kempt and well developed Orientation / Consciousness: awake, oriented to person, oriented to place and oriented to time HEENT normocephalic, head/scalp atraumatic, hearing grossly normal bilaterally and moist oral mucous membranes Eyes PERRL, EOMs intact bilaterally and conjunctivae normal Eyes Narrative: No scleral icterus Neck no lymphadenopathy, supple and no JVD Neck Narrative: tracheostomy tube in place, covered with trach mask Lymph Lymphatic: no lymphadenopathy noted and no lymphedema noted Resp normal respiratory effort, no retractions, no use of accessory muscles and clear to auscultation bilaterally Resp Narrative: mildly diminished breath sounds bilaterally, no wheezes or crackles. On 6L of oxygen via tracheostomy at FiO2 of 28%. Auscultation: Negative for crackles, rales, rhonchi or wheezes Cardio regular rate, regular rhythm, S1 normal heart sound, S2 normal heart sound, no murmurs, no rub, no gallops and no clicks GI normal to inspection, nondistended, normoactive bowel sounds, soft to palpation, non-tender and non-distended GI Narrative: obese abdomen Extremity Extremity Narrative: LUE wrapped in bandage. Skin no rashes or lesions noted Skin Narrative: as under extremities General Skin Exam: no breakdown Neuro oriented x3, CN's II-XII intact bilaterally, moves all extremities, no focal motor deficits and no sensory deficits noted Sensorium / Orientation: awake, alert, oriented to person, oriented to place and oriented to time Speech: Negative for speech normal Motor Exam: strength 5/5 throughout and general weakness Psych thought process normal, cooperative and affect normal Appearance: appropriate Assessment & Plan Assessment/Plan (1) Effusion of elbow joint, right: (2) Gram-negative pneumonia: (3) Obesity (BMI 30-39.9): PLAN: Plan #Pneumonia due to Pseudomonas and Proteus * Currently on IV Zosyn and doxycycline. ID is also on board. * Now on 6 L of oxygen via tracheostomy at FiO2 of 28% * Titrate oxygen to maintain saturation above 90%. Breathing treatments with bronchodilators. * ID on board. Per ID to continue Zosyn and doxycycline till 01/21/2024. * #RUE edema * concern for cellulitis of the RLE. * ESR and CRP were elevated though it was thought it would be due to to the pneumonia. uric acid level was normal * aspirate of the right elbow culture was negative. Duplex of the RUE was also negative for DVT * on oxycodone prn * PT/OT on board * #Sharmin on CKD IIIa * encourage oral hydration. also hydrated gently with IVF * Creatinine today remains is 1.83. Encourage oral hydration * this appears to be more of CKD than SHARMIN on CKD * #Hypokalemia: resolved. Potassium is 3.6. #HFpEF: diuretics held due to impaired kidney function. Will monitor. Breathing treatment with bronchodilators #Benign essential hypertension: on amlodipine. #History of laryngeal cancer s/p laryngectomy: has a Tracheostomy tube in place #Chronic A-fib: On Eliquis #Type 2 diabetes mellitus: On Jardiance. Insulin sliding scale. Accu-Cheks ACHS. Also on insulin #History of gout: No evidence of acute flare. Uric acid was normal #Hypothyroidism:on synthroid #Obesity: BMi is 36.8. Complicates acute care, expected recovery and prognosis DVT prophylaxis: on eliquis. Disposition: awaiting placement. Charges/Coding Visit Charges Inpatient E&M: 19983 Subs Hosp L2
[2024-01-20] MEDS: Ferrous Sulfate 325 MG Tablet PO (11:45)
[2024-01-20] MEDS: Acetaminophen 500 MG Tablet 1000 MG PO ×2 (11:47→14:50)
[2024-01-20 12:23] LABS: Bedside Glucose 285 mg/dL (74-106)
[2024-01-20] MEDS: oxyCODONE 5 MG Tablet 10 MG PO (17:43)
[2024-01-20 18:05] LABS: Bedside Glucose 215 mg/dL (74-106)
[2024-01-20 18:15] LABS: Magnesium 2.3 mg/dL (1.6-2.6)
[2024-01-20] MEDS: Atorvastatin Calcium 40 MG Tablet PO (21:41)
[2024-01-20 22:27] LABS: Bedside Glucose 237 mg/dL (74-106)
[2024-01-21] VITALS (7 sets, daily range): BP systolic 128–140; BP diastolic 58–73; PULSE 68–87; RESP 16–18; TEMP 36.4–37.2; O2SAT 93–98
[2024-01-21] MEDS: Ipratropium/Albuterol Sulfate 3 ML AMPUL.NEB INHALATION ×3 (03:02→11:00)
[2024-01-21 06:14] LABS: Absolute Lymphocyte Count 0.62 X10^3/uL (0.83-4.51); Absolute Neutrophil Count 11.2 X10^3/uL (2.0-7.7); Basophil# 0.03 X10^3/uL; Basophil% 0.2 % (0-1); Eosinophil# 0.11 X10^3/uL; Eosinophils% 0.8 % (0-5); Hematocrit 24.8 % (40-54); Hemoglobin 8.1 g/dL (13.0-16.5); Lymphocyte # 0.62 X10^3/ul (0.83-4.51); Lymphocyte % 4.6 % (19-41); Mean Corp Hgb Conc 32.7 g/dL (32-36); Mean Corpuscular Hgb 29.2 pg (27.0-32.0); Mean Corpuscular Volume 89.5 fL (80-94); Mean Platelet Vol. 9.9 fl (6.2-12.0); Monocyte% 10.4 % (0-10); NRBC Flagged by Analyzer 0 % (0-5); Neutrophil % 83.3 % (47-70); Platelet Count 359 K/mm3 (150-450); RBC Distribution Width CV 12.5 % (11.6-14.6); RBC Distribution Width SD 41.1 fl (35.1-43.9); Red Blood Count 2.77 M/mm3 (4.6-6.2); White Blood Count 13.5 K/mm3 (4.4-11.0)
[2024-01-21] MEDS: Piperacil/Tazobactam 3.375 GM in 0.9% Normal Saline (50mL MB+) 50 ML IV (06:17)
[2024-01-21] MEDS: Insulin Lispro 100 UNIT/ML INSULN.PEN SC ×2 (06:20→12:34)
[2024-01-21] MEDS: Levothyroxine 150 MCG Tablet PO (06:21)
[2024-01-21 06:40] LABS: Bedside Glucose 167 mg/dL (74-106)
[2024-01-21 06:40] LABS: Anion Gap 7 (5-15); BUN 52 mg/dL (7-18); Calcium,Total 8.8 mg/dL (8.5-10.1); Chloride 98 mmol/L (98-107); EST Glomerular Filtration Rate 35 mL/min (>60); Est Glom Filt Rate - Afr Amer 43 mL/min (>60); Estimated Creatinine Clearance 46.51 ml/min; Glucose 167 mg/dL (74-106); Potassium 3.5 mmol/L (3.5-5.1); Sodium Level 132 mmol/L (136-145)
[2024-01-21] MEDS: Budesonide Respules 0.5 MG/2 ML AMPUL.NEB. INHALATION (07:02)
[2024-01-21] MEDS: oxyCODONE 5 MG Tablet 10 MG PO (10:45)
[2024-01-21] MEDS: guaiFENesin 1,200 MG Tablet 1200 MG PO (10:46)
[2024-01-21] MEDS: APIXABAN 5 MG TABLET PO (10:46)
[2024-01-21] MEDS: Doxycycline 100 MG CAPSULE PO (10:46)
[2024-01-21] MEDS: Empagliflozin 10 MG Tablet PO (10:46)
[2024-01-21] MEDS: amLODIPine 5 MG Tablet PO (10:47)
[2024-01-21] MEDS: Cyanocobalamin 500 MCG Tablet PO (10:47)
--- NOTE | 2024-01-21 11:37 | CASEMGMT ---
Discharge Planning Alice Conley has obtained auth to admit. Aishwarya Esparza DC Planning Asst.
[2024-01-21] MEDS: Lactobacillis Acidophilus 1 CAP PO ×2 (12:17→15:20)
[2024-01-21] MEDS: Ferrous Sulfate 325 MG Tablet PO (12:17)
[2024-01-21] MEDS: Senna/Docusate Sodium 1 Tablet 2 TABLET PO (12:34)
[2024-01-21 12:37] LABS: Bedside Glucose 223 mg/dL (74-106)
--- NOTE | 2024-01-21 13:49 | TREXTCAR_ITS ---
Diet Diet Order/Speech Therapy: 01/15/24 11:44 Diet: Consistent Carb - Calorie Controlled Food consistency:: Easy to Chew Type of Dietary Supplement:: Glucerna Shake Diet Comments: stw glucerna 120mL w/meals How many daily calories?: 1800 calorie Routine Orders/Code Status Enema Type: Fleetz Enema Frequency: Daily PRN Suppository Type: Dulcolax 10mg Suppository Frequency: Daily PRN DC O2, CPAP, BIPAP needs PSN CPAP & BiPAP: BiPAP & CPAP Settings per PSN Fraction of Inspired Oxygen ( 28 01/21/24 10:29 FIO2) Additional Home O2 Discharge instructions: No Wound(s) right anterior elbow: Wound Type: Puncture Therapies Weight Bearing: Weight bearing as tolerated Physical Therapy: Eval and Treat Occupational Therapy: Eval and Treat Problem/Diagnosis (1) Effusion of elbow joint, right: Status: Acute Code(s): M25.421 - Effusion, right elbow (2) Gram-negative pneumonia: Status: Acute Code(s): J15.69 - Pneumonia due to other Gram-negative bacteria (3) Obesity (BMI 30-39.9): Status: Acute Code(s): E66.9 - Obesity, unspecified Plan #Pneumonia due to Pseudomonas and Proteus * Currently on IV Zosyn and doxycycline. ID is also on board. * Now on 6 L of oxygen via tracheostomy at FiO2 of 28% * Titrate oxygen to maintain saturation above 90%. Breathing treatments with bronchodilators. * ID on board. Per ID to continue Zosyn and doxycycline till 01/21/2024. * #RUE edema * concern for cellulitis of the RLE. * ESR and CRP were elevated though it was thought it would be due to to the pneumonia. uric acid level was normal * aspirate of the right elbow culture was negative. Duplex of the RUE was also negative for DVT * on oxycodone prn * PT/OT on board * #Alejandra on CKD IIIa * encourage oral hydration. also hydrated gently with IVF * Creatinine today remains is 1.83. Encourage oral hydration * this appears to be more of CKD than ALEJANDRA on CKD * #Hypokalemia: resolved. Potassium is 3.6. #HFpEF: diuretics held due to impaired kidney function. Will monitor. Breathing treatment with bronchodilators #Benign essential hypertension: on amlodipine. #History of laryngeal cancer s/p laryngectomy: has a Tracheostomy tube in place #Chronic A-fib: On Eliquis #Type 2 diabetes mellitus: On Jardiance. Insulin sliding scale. Accu-Cheks ACHS. Also on insulin #History of gout: No evidence of acute flare. Uric acid was normal #Hypothyroidism:on synthroid #Obesity: BMi is 36.8. Complicates acute care, expected recovery and prognosis DVT prophylaxis: on eliquis. Disposition: awaiting placement. Allergies/Procedures Done in Hospital Allergies No Known Allergies Allergy (Verified 01/12/24 16:55) Procedures: None Type of Care/Length of Stay Estimated LOS: Convalescent Care Less Than 30 days Type of Care Needed: Skilled Rehab Potential: Fair Prognosis: Fair Additional Orders/Day of Discharge Day of Discharge: 01/21/24 Dietary and Speech Recommendations Dietitian Recommendations/Changes: Continue 1800 calorie controlled/consistent carbohydrate diet and 120ml strawberry glucerna TID with meals. Will monitor weight, as available. Reviewed and approved by Kala Mcgraw RDN, LD. Discharge Plan Admission Admit Date/Time: 01/12/24 21:00 Primary Reason for Your Visit: pneumonia Attending Provider: Bridgett Dale Primary Care Provider: Chinmay Sin Consulting Providers: Himanshu Bermeo; Rafael Mcmillan; Ron Lockhart; Zo Ballard Instructions Patient Instructions: ED Pneumonia (Adult) Discharge Orders/Prescriptions Prescriptions: Continued ferrous sulfate [FeroSul] 325 mg (65 mg iron) tablet 325 mg PO DAILY levothyroxine 150 MCG tablet 150 mcg PO DAILY Patient Comments: thyroid atorvastatin 40 MG tablet 40 mg PO DAILY@1700 ipratropium-albuterol 3 ML solution for nebulization 3 ml inhalation Q4H Patient Comments: breathing acetaminophen 325 mg Tablet 650 mg PO DAILY PRN (Reason: Pain) budesonide [Pulmicort] 0.5 mg/2 mL Suspension For Nebulization 0.5 mg INHALATION BID potassium chloride 10 mEq capsule, extended release 20 meq PO DAILY Patient Comments: TAKE 2 CAPSULES BY MOUTH ONCE DAILY (DME) pen needle, diabetic 32 gauge x 3/16 needle See Rx Instructions .Route Qty: 100 2RF Rx Instructions: As directed buspirone 7.5 mg tablet 7.5 mg PO TID PRN PRN (Reason: anxiety) Jardiance 10 mg tablet 10 mg PO DAILY cyanocobalamin (vitamin B-12) 500 mcg tablet 500 mcg PO DAILY omeprazole 20 mg capsule,delayed release(DR/EC) 20 mg PO DAILY Ozempic 2 mg/dose (8 mg/3 mL) pen injector 2 mg subcut .COMPLEX Rx Instructions: 2 mg subcutaneously once a week last taken Sunday09/28/23; azithromycin 500 mg tablet 1,000 mg PO QWEEK (DME) Granular Zayra 2 Sensor Kit See Rx Instructions .ROUTE .MEDSUPPLY Qty: 2 6RF Rx Instructions: As directed amlodipine 5 mg tablet 5 mg PO DAILY Qty: 90 3RF Eliquis 5 mg tablet 5 mg PO BID Qty: 180 4RF furosemide 40 mg tablet 40 mg PO BID 30 Days Qty: 60 3RF Discontinued azithromycin 250 mg tablet 250 mg PO DAILY Referrals / Follow Up: Chinmay Sin MD [Primary Care Provider] - Within 1 Week Disposition Disposition (needs filled in before D/C Order can be placed): [facility]
--- NOTE | 2024-01-21 13:51 | PCM.PN.ID ---
Physical Exam Narrative Feeling better, no fever, no cough or SOB Const alert and no apparent distress General Appearance: cooperative Resp normal air movement and clear to auscultation bilaterally Cardio regular rate and regular rhythm GI soft to palpation, non-tender and non-distended Skin Skin Narrative: RUE swelling, less red and indurated ID ID: Route of nutrition/ use of supplements: [] Nutritional Intake: [] IV Site: [] Graf Catheter: [] Assessment & Plan Assessment/Plan (1) Effusion of elbow joint, right: (2) Gram-negative pneumonia: PLAN: Cont zosyn for lungs and doxy for skin coverage. Overall improving. Stop date planned for 01/20, ok for discharge off abx. Will follow prn, d/w Dr. Dale (3) History of tracheostomy:
--- NOTE | 2024-01-21 13:52 | DS.PCM_ITS ---
Providers Date of Admission: 01/12/24 Date of Discharge: 01/21/24 Primary Care Physician: Dr. Chinmay Sin MD Consultations 01/16/24 09:12 Consult: Infectious Disease Routine Consulting Provider: Ron Lockhart Reason for Consult: MDRO PsAG EMERGENT Consult: No MD Notified: Yes Date Notified: 01/16/24 Time Notified: 09:37 Method of Notification: Text Reason For Visit: PNEUMONIA, CHF EXACERBATION Diagnosis Discharge Diagnosis (1) Effusion of elbow joint, right: Status: Acute Code(s): M25.421 - Effusion, right elbow (2) Gram-negative pneumonia: Status: Acute Code(s): J15.69 - Pneumonia due to other Gram-negative bacteria (3) Obesity (BMI 30-39.9): Status: Acute Code(s): E66.9 - Obesity, unspecified (4) History of tracheostomy: Status: Acute Code(s): Z98.890 - Other specified postprocedural states Plan #Pneumonia due to Pseudomonas and Proteus * Currently on IV Zosyn and doxycycline. ID is also on board. * Now on 6 L of oxygen via tracheostomy at FiO2 of 28% * Titrate oxygen to maintain saturation above 90%. Breathing treatments with bronchodilators. * ID on board. Per ID to continue Zosyn and doxycycline till 01/21/2024. * #RUE edema * concern for cellulitis of the RLE. * ESR and CRP were elevated though it was thought it would be due to to the pneumonia. uric acid level was normal * aspirate of the right elbow culture was negative. Duplex of the RUE was also negative for DVT * on oxycodone prn * PT/OT on board * #Alejandra on CKD IIIa * encourage oral hydration. also hydrated gently with IVF * Creatinine today remains is 1.83. Encourage oral hydration * this appears to be more of CKD than ALEJANDRA on CKD * #Hypokalemia: resolved. Potassium is 3.6. #HFpEF: diuretics held due to impaired kidney function. Will monitor. Breathing treatment with bronchodilators #Benign essential hypertension: on amlodipine. #History of laryngeal cancer s/p laryngectomy: has a Tracheostomy tube in place #Chronic A-fib: On Eliquis #Type 2 diabetes mellitus: On Jardiance. Insulin sliding scale. Accu-Cheks ACHS. Also on insulin #History of gout: No evidence of acute flare. Uric acid was normal #Hypothyroidism:on synthroid #Obesity: BMi is 36.8. Complicates acute care, expected recovery and prognosis DVT prophylaxis: on eliquis. Disposition: awaiting placement. Medications at Discharge Home Medications levothyroxine 150 mcg tablet 150 mcg PO DAILY hypothyroidism 06/04/14 atorvastatin 40 mg tablet 40 mg PO DAILY@1700 cholesterol 04/12/17 ipratropium 0.5 mg-albuterol 3 mg (2.5 mg base)/3 mL nebulization soln 3 ml inhalation Q4H sob 04/12/17 flash glucose sensor (FreeStyle Zayra 2 Sensor kit) #2 ea 05/17/21 acetaminophen 325 mg tablet 650 mg PO DAILY PRN Pain 12/06/21 budesonide 0.5 mg/2 mL suspension for nebulization (Pulmicort) 0.5 mg inhalation BID sob 12/06/21 ferrous sulfate 325 mg (65 mg iron) tablet (FeroSul) 325 mg PO DAILY iron 08/29/22 potassium chloride 10 mEq capsule,extended release 20 meq PO DAILY mineral 11/13/22 pen needle, diabetic 32 gauge x 3/16 #100 ea 06/22/23 amlodipine 5 mg tablet 5 mg PO DAILY #90 tabs 09/17/23 apixaban 5 mg tablet (Eliquis) 5 mg PO BID blood thinner #180 tabs 09/20/23 buspirone 7.5 mg tablet 7.5 mg PO TID PRN PRN anxiety 10/01/23 cyanocobalamin (vitamin B-12) 500 mcg tablet 500 mcg PO DAILY 10/01/23 empagliflozin 10 mg tablet (Jardiance) 10 mg PO DAILY 10/01/23 omeprazole 20 mg capsule,delayed release 20 mg PO DAILY 10/01/23 semaglutide 2 mg/dose (8 mg/3 mL) subcutaneous pen injector (Ozempic) 2 mg subcut .COMPLEX diabetes 10/01/23 furosemide 40 mg tablet 40 mg PO BID EDEMA 1 month #60 tabs 10/25/23 azithromycin 500 mg tablet 1,000 mg PO QWEEK 01/12/24 Hospital Course Operations None Procedures None Summary of Care Provided Minutes Spent on Discharge: 55 Hospital Course: Patient is a 68-year-old male with an extensive past medical history as outlined was admitted through the ED on 01/13/2024 with a complaint of shortness of breath, wheezing and cough. His symptoms started 3 days prior to admission. He was of a gradual onset of gradually worsening. He also had bilateral lower extremity 2+ edema extending up to the mid calf region. He said he has been taking his Lasix as prescribed. He was admitted to decreased appetite with assisted nausea. CT of the chest showed a left lower lobe infiltrates consistent with suspected pneumonia. He also had a mild fever 100.2 Fahrenheit and WBC was 12.9. Blood pressure was also elevated at 176/89. He was admitted and managed for hypoxia due to probable community-acquired pneumonia and mild acute exacerbation of heart failure preserved ejection fraction. Patient did have a history of laryngeal cancer s/p laryngectomy usually wears 3 L at home. He had had previous tracheostomy. He was started on IV broad-spectrum antibiotics. Sputum cultures grew Pseudomonas and Proteus. He was switched to IV Zosyn and doxycycline. ID was consulted. He had a right upper extremity edema and there was concern for cellulitis. Duplex of the right upper extremity was negative for any evidence of DVT. Hospital course was complicated by ALEJANDRA on CKD stage IIIa which resolved with hydration. His creatinine trended down to baseline. Patient felt much better. He completed a course of doxycycline and Zosyn. ID recommended that he could be discharged on no antibiotics. He was deemed as needing long-term therapy. He was therefore discharged long-term facility on 01/21/2024. He is follow-up with his primary care doctor within 1 to 2 weeks. Patient seen and examined prior to discharge. He felt better and had no complaints. Review of systems otherwise negative. Labs and vitals reviewed. Home medication reviewed and reconciled. Physical Exam Const alert, oriented x3, no apparent distress, average body habitus, healthy appearing and well nourished Constitutional Narrative: obese General Appearance: cooperative, comfortable, well kempt and well developed Orientation / Consciousness: awake, oriented to person, oriented to place and oriented to time HEENT normocephalic, head/scalp atraumatic, hearing grossly normal bilaterally and moist oral mucous membranes Eyes PERRL, EOMs intact bilaterally and conjunctivae normal Eyes Narrative: No scleral icterus Neck no lymphadenopathy, supple and no JVD Neck Narrative: tracheostomy tube in place, covered with trach mask Lymph Lymphatic: no lymphadenopathy noted and no lymphedema noted Resp Resp Narrative: mildly diminished breath sounds bilaterally, no wheezes or crackles. On 6L of oxygen via tracheostomy at FiO2 of 28%. Cardio regular rate, regular rhythm, S1 normal heart sound, S2 normal heart sound, no murmurs, no rub, no gallops and no clicks GI normal to inspection, nondistended, normoactive bowel sounds, soft to palpation, non-tender and non-distended GI Narrative: obese abdomen Extremity Extremity Narrative: LUE wrapped in bandage. Skin no rashes or lesions noted Skin Narrative: as under extremities General Skin Exam: no breakdown Neuro oriented x3, CN's II-XII intact bilaterally, moves all extremities, no focal motor deficits and no sensory deficits noted Sensorium / Orientation: awake, alert, oriented to person, oriented to place and oriented to time Speech: Negative for speech normal Motor Exam: strength 5/5 throughout and general weakness Psych thought process normal, cooperative and affect normal Psych Narrative: Appearance: appropriate Weight / BMI Weight Weight: 263 lb 10.766 oz Body Mass Index (BMI) 36.8 ABG / Lab / Microbiology Data 01/21/24 05:20 01/21/24 05:20 Laboratory: Laboratory Results - last 24 hr 01/20/24 05:00: Magnesium 2.3 01/20/24 17:33: POC Glucose 215 H 01/20/24 21:43: POC Glucose 237 H 01/21/24 05:20: WBC 13.5 H, RBC 2.77 L, Hgb 8.1 L, Hct 24.8 L, MCV 89.5, MCH 29.2, MCHC 32.7, RDW Std Deviation 41.1, RDW Coeff of Alisson 12.5, Plt Count 359, MPV 9.9, Immature Gran % (Auto) 0.700, Neut % (Auto) 83.3 H, Lymph % (Auto) 4.6 L, [place] % (Auto) 10.4 H, Eos % (Auto) 0.8, Baso % (Auto) 0.2, Absolute Neuts (auto) 11.2 H, Absolute Lymphs (auto) 0.62 L, Nucleated RBC % 0, Sodium 132 L, Potassium 3.5, Chloride 98, Carbon Dioxide 27.0, Anion Gap 7, BUN 52 H, C reatinine 2.00 H, Estim Creat Clear Calc 46.51, Est GFR (MDRD) Af Amer 43 L, Est GFR (MDRD) Non-Af 35 L, BUN/Creatinine Ratio 26.0 H, Glucose 167 H, Calcium 8.8 01/21/24 06:19: POC Glucose 167 H 01/21/24 12:15: POC Glucose 223 H Microbiology: Microbiology 01/15/24 09:40 Fluid - Synovial (joint) Gram Stain - Final 01/15/24 09:40 Fluid - Synovial (joint) Body Fluid Culture - Final Culture exhibits no growth. 01/15/24 09:40 Fluid - Synovial (joint) Anaerobic Culture - Final No growth in 5 days. 01/13/24 05:45 Sputum, Tracheal Aspirate Gram Stain - Final 01/13/24 05:45 Sputum, Tracheal Aspirate Respiratory Culture - Final Pseudomonas aeruginosa Proteus hauseri 01/12/24 17:20 Blood Culture (Wb) - Left Forearm Blood Culture - Final No growth in 5 days. 01/16/24 20:10 Mucosa - Nasopharyngeal Respiratory Panel (PCR) - Final 01/16/24 20:10 Nasal Secretion SARS-CoV-2 Antigen (Rapid) - Final 01/13/24 01:35 Mucosa - Nasopharyngeal Respiratory Panel (PCR) - Final 01/12/24 19:30 Urine, Clean Catch Streptococcus pneumoniae Antigen (M - Final 01/12/24 19:30 Urine, Clean Catch Legionella Antigen - Final 01/12/24 17:47 Mucosa - Nose SARS-CoV-2, Influenza & RSV (PCR) - Final D/C Instructions Discharge Diet: Low fat / Low cholesterol Discharge Activity: Return to Normal Activity Weight Bearing Status: Weight bearing as tolerated Call your doctor if you observe: Fever of 101 or Higher, Shortness of breath, Dizziness, Swelling in the ankles and Chest pain DC O2, CPAP, BIPAP Needs PSN CPAP & BiPAP: BiPAP & CPAP Settings per PSN Fraction of Inspired Oxygen ( 28 01/21/24 10:29 FIO2) Additional Home O2 Discharge instructions: Yes Type of respiratory needs?: Oxygen Oxygen frequency: Continuous Continuous oxygen liters per minute: 3 DC home with Oxygen: Yes Home O2 MD Review: I have reviewed the oxygen testing, and the patient qualifies for home oxygen equipment and portability. The patient is mobile in the home and the community. Meaningful Use Info Meaningful Use Meaningful Use Diagnoses (Choose all that apply): None applicable Ischemic Stroke Statin Dosing Therapy Reference: STATIN DOSE THERAPY REFERENCE: * Patients > 75 years receive moderate or high dose statin therapy. * Patients 75 years or YOUNGER should receive HIGH intensity statin dose unless contraindicated. You will be required to document reason for non-treatment if statin daily dose does not meet guidelines. HIGH DOSE STATIN THERAPY DAILY Atorvastatin > than or = to 40 mg Rosuvastatin > than or = to 20 mg Amlodipine + Atorvastatin > than or = to 2.5/40 mg Ezetimibe + Simvastatin 10/80 mg Simvastatin 80mg Discharge Plan Admission Admit Date/Time: 01/12/24 21:00 Primary Reason for Your Visit: pneumonia Attending Provider: Bridgett Dale Primary Care Provider: Chinmay Sin Consulting Providers: Himanshu Bermeo; Rafael Mcmillan; Ron Lockhart; Zo Ballard Instructions Patient Instructions: ED Pneumonia (Adult) Discharge Orders/Prescriptions Prescriptions: Continued ferrous sulfate [FeroSul] 325 mg (65 mg iron) tablet 325 mg PO DAILY levothyroxine 150 MCG tablet 150 mcg PO DAILY Patient Comments: thyroid atorvastatin 40 MG tablet 40 mg PO DAILY@1700 ipratropium-albuterol 3 ML solution for nebulization 3 ml inhalation Q4H Patient Comments: breathing acetaminophen 325 mg Tablet 650 mg PO DAILY PRN (Reason: Pain) budesonide [Pulmicort] 0.5 mg/2 mL Suspension For Nebulization 0.5 mg INHALATION BID potassium chloride 10 mEq capsule, extended release 20 meq PO DAILY Patient Comments: TAKE 2 CAPSULES BY MOUTH ONCE DAILY (DME) pen needle, diabetic 32 gauge x 3/16 needle See Rx Instructions .Route Qty: 100 2RF Rx Instructions: As directed buspirone 7.5 mg tablet 7.5 mg PO TID PRN PRN (Reason: anxiety) Jardiance 10 mg tablet 10 mg PO DAILY cyanocobalamin (vitamin B-12) 500 mcg tablet 500 mcg PO DAILY omeprazole 20 mg capsule,delayed release(DR/EC) 20 mg PO DAILY Ozempic 2 mg/dose (8 mg/3 mL) pen injector 2 mg subcut .COMPLEX Rx Instructions: 2 mg subcutaneously once a week last taken Sunday09/28/23; azithromycin 500 mg tablet 1,000 mg PO QWEEK (DME) FreeStyle Zayra 2 Sensor Kit See Rx Instructions .ROUTE .MEDSUPPLY Qty: 2 6RF Rx Instructions: As directed amlodipine 5 mg tablet 5 mg PO DAILY Qty: 90 3RF Eliquis 5 mg tablet 5 mg PO BID Qty: 180 4RF furosemide 40 mg tablet 40 mg PO BID 30 Days Qty: 60 3RF Discontinued azithromycin 250 mg tablet 250 mg PO DAILY Referrals / Follow Up: Chinmay Sin MD [Primary Care Provider] - Within 1 Week Disposition Disposition (needs filled in before D/C Order can be placed): Long Term Facility Charges/Coding Visit Charges Inpatient E&M: 60734 Disch Hosp >30min
--- NOTE | 2024-01-21 14:49 | CASEMGMT ---
Discharge Planning Discharge orders, signed med list, and transport time sent to [facility]. Physicians will transport patient by wheelchair at 3:30. Nursing, SW, pt, and his daughter (Lainey) updated. Lainey will update her mother. Aishwarya Esparza DC Planning Asst.
[2024-01-21] MEDS: Acetaminophen 500 MG Tablet 1000 MG PO (15:20)
--- NOTE | 2024-01-21 16:24 | NURSING ---
Report called to Roxana Conley
== END 2024-01-21 16:17 | disposition skilled nursing facility (03) | DRG 177 ==
LOC: ED 21:07 → PCU 21:48
PROVIDERS: Internal Medicine; Admitting Provider Internal Medicine; Emergency Provider Surgery; PCP Family Medicine; Referring Provider Internal Medicine; Visit Provider Student in an Organized Health Care Education/Training Program
DX: J15.69 Pneumonia due to other Gram-negative bacteria (principal); I50.33 Acute on chronic diastolic (congestive) heart failure; N17.9 Acute kidney failure, unspecified; J96.11 Chronic respiratory failure with hypoxia; I13.0 Hypertensive heart and chronic kidney disease with heart failure and stage 1 through stage 4 chronic kidney disease, or unspecified chronic kidney disease; I48.20 Chronic atrial fibrillation, unspecified; Z93.0 Tracheostomy status; B96.5 Pseudomonas (aeruginosa) (mallei) (pseudomallei) as the cause of diseases classified elsewhere; E11.22 Type 2 diabetes mellitus with diabetic chronic kidney disease; B96.4 Proteus (mirabilis) (morganii) as the cause of diseases classified elsewhere; N18.31 Chronic kidney disease, stage 3a; J44.9 Chronic obstructive pulmonary disease, unspecified; D50.9 Iron deficiency anemia, unspecified; E89.0 Postprocedural hypothyroidism; E66.9 Obesity, unspecified; J15.1 Pneumonia due to Pseudomonas; E11.65 Type 2 diabetes mellitus with hyperglycemia; F41.8 Other specified anxiety disorders; I25.10 Atherosclerotic heart disease of native coronary artery without angina pectoris; Z79.4 Long term (current) use of insulin; E78.5 Hyperlipidemia, unspecified; M10.9 Gout, unspecified; M19.90 Unspecified osteoarthritis, unspecified site; E87.6 Hypokalemia; K21.9 Gastro-esophageal reflux disease without esophagitis; M25.421 Effusion, right elbow; Z79.01 Long term (current) use of anticoagulants; Z99.81 Dependence on supplemental oxygen; Z82.3 Family history of stroke; G89.4 Chronic pain syndrome; Z68.36 Body mass index [BMI] 36.0-36.9, adult; Z86.0100 Personal history of colon polyps, unspecified; Z87.891 Personal history of nicotine dependence; Z79.84 Long term (current) use of oral hypoglycemic drugs; Z85.21 Personal history of malignant neoplasm of larynx; R60.0 Localized edema
CPT/HCPCS: 31720; 36415; 71046; 71275; 73120; 73200; 77012; 80048; 80053; 80202; 81001; 81002; 82607; 82746; 82803; 82962; 83605; 83690; 83735; 83880; 84100; 84300; 84443; 84484; 84550; 85025; 85027; 85379; 85610; 85652; 85730; 86140; 86225; 86235; 87040; 87070; 87075; 87077; 87186; 87205; 87449; 87631; 87633; 87641; 87811; 88108; 88305; 88313; 89050; 93005; 93970; 93971; 94640; 97162; 97167; 97530; 97535; 99285; Q9967; A4216; J1940; J2405

== ENCOUNTER 2024-02-18 18:23 | Emergency (ER) | payer MEDICARE, SELFPAY ==
[2024-02-18 18:23] VITALS: BP 149/74; PULSE 97; RESP 20; TEMP 36.4; O2SAT 94; BMI 35.1
--- NOTE | 2024-02-18 19:07 | EKG12_ITS ---
Test Reason : DYSRHYTHMIA Blood Pressure : */* mmHG Vent. Rate : 87 BPM Atrial Rate : 87 BPM P-R Int : 250 ms QRS Dur : 86 ms QT Int : 364 ms P-R-T Axes : 98 51 73 degrees QTcB Int : 438 ms Sinus rhythm with 1st degree A-V block Otherwise normal ECG Confirmed by BALTAZAR CHENG, ALEXANDER ([id number]), mapping editor ERON FUENTES ([id number]) on 02/19/2024 9:26:30 AM Referred By: Confirmed By: ALEXANDER LEDESMA MD
--- NOTE | 2024-02-18 19:09 | ED.VIS.DYS ---
HPI History of Present Illness Chief Complaint: Shortness of Breath Informant: patient and spouse/S.O. Narrative Narrative: Presents to ED for evaluation. History of laryngeal cancer in 2007 laryngectomy. Chronic 3 to 4 L oxygen Through a trach tube uncuffed. He is on Eliquis history of atrial fibrillation. Patient [facility] from [facility]. He was not ambulating however did have physical therapy. Reported his 21 days were up, therefore his discharge. Went home at 2 PM. Started to have dyspnea cough mild hemoptysis. Similar with pneumonia in the past. No fevers or chills. He was admitted for pneumonia prior to [facility] facility last month. He states prior to that January 24 he was at [facility] had a PEG tube placed for concerns for aspiration. He gets PEG tube feeds continuously. Spouse states when he was discharged this was not set up for home. He states more swelling hands and feet for last 3 days when his water pill was stopped. States started and stopped due to his kidney issues.States he feels weaker. Prior similar symptoms: Yes PFSH PFSH Medical History Respiratory insufficiency Adverse drug reaction Symptomatic bradycardia Sinus bradycardia Hypoxia Anticoagulant long-term use COPD exacerbation Pleural effusion on left Acute exacerbation of CHF (congestive heart failure) Kidney disease COPD (chronic obstructive pulmonary disease) Atrial fibrillation BPH (benign prostatic hyperplasia) Anxiety and depression Stage 3a chronic kidney disease (CKD) Atrial fibrillation Obesity Tracheostomy in place Anticoagulant long-term use Chronic a-fib Recurrent left pleural effusion Chronic pain (HFpEF) heart failure with preserved ejection fraction Wears glasses Walker as ambulation aid Ambulates with cane Injury of back Migraine headache Gastric reflux Former smoker On home oxygen therapy Emphysema, unspecified Obesity Chronic renal failure, stage 3 (moderate) Laryngeal cancer Gastroenteritis Diabetes mellitus, type II Malignant neoplasm of head, neck and face History of colon polyps Gout Hyperlipidemia Hiatal hernia Esophageal dysmotility Diverticulosis of colon (without mention of hemorrhage) Benign neoplasm of colon Atherosclerosis of coronary artery of [place] heart without angina pectoris Essential hypertension Hypothyroidism COPD (chronic obstructive pulmonary disease) Home Medications ?Medication ?Instructions ?Recorded ?Last Taken ?Type levothyroxine 150 mcg tablet 150 mcg PO DAILY hypothyroidism 06/04/14 11/13/22 History atorvastatin 40 mg tablet 40 mg PO DAILY@1700 cholesterol 04/12/17 11/12/22 History ipratropium 0.5 mg-albuterol 3 mg 3 ml inhalation Q4H sob 04/12/17 11/13/22 History (2.5 mg base)/3 mL nebulization soln flash glucose sensor (FreeStyle #2 ea 05/17/21 Unknown Rx Zayra 2 Sensor kit) acetaminophen 325 mg tablet 650 mg PO DAILY PRN Pain 12/06/21 11/13/22 History budesonide 0.5 mg/2 mL suspension 0.5 mg inhalation BID sob 12/06/21 11/10/22 History for nebulization (Pulmicort) ferrous sulfate 325 mg (65 mg 325 mg PO DAILY iron 08/29/22 11/13/22 History iron) tablet (FeroSul) potassium chloride 10 mEq 20 meq PO DAILY mineral 11/13/22 11/13/22 History capsule,extended release pen needle, diabetic 32 gauge x #100 ea 06/22/23 Unknown Rx 3/16 amlodipine 5 mg tablet 5 mg PO DAILY #90 tabs 09/17/23 Unknown Rx apixaban 5 mg tablet (Eliquis) 5 mg PO BID blood thinner #180 tabs 09/20/23 Unknown Rx buspirone 7.5 mg tablet 7.5 mg PO TID PRN PRN anxiety 10/01/23 Unknown History cyanocobalamin (vitamin B-12) 500 500 mcg PO DAILY 10/01/23 Unknown History mcg tablet empagliflozin 10 mg tablet 10 mg PO DAILY 10/01/23 Unknown History (Jardiance) omeprazole 20 mg capsule,delayed 20 mg PO DAILY 10/01/23 Unknown History release semaglutide 2 mg/dose (8 mg/3 mL) 2 mg subcut .COMPLEX diabetes 10/01/23 Unknown History subcutaneous pen injector (Ozempic) furosemide 40 mg tablet 40 mg PO BID EDEMA 1 month #60 tabs 10/25/23 Unknown Rx azithromycin 500 mg tablet 1,000 mg PO QWEEK 01/12/24 Unknown History amoxicillin 875 mg-potassium 1 tab feeding tube BID #14 tabs 02/18/24 Unknown Rx clavulanate 125 mg tablet azithromycin 250 mg tablet 250 mg PO DAILY 02/18/24 Unknown History furosemide 40 mg tablet (Lasix) 40 mg feeding tube DAILY #10 tabs 02/18/24 Unknown Rx insulin glargine 100 unit/mL (3 10 unit subcut DAILY 02/18/24 Unknown History mL) subcutaneous pen (Lantus Solostar U-100 Insulin) insulin lispro 100 unit/mL 10 unit subcut TID 02/18/24 Unknown History subcutaneous pen Allergy/AdvReac Type Severity Reaction Status Date / Time No Known Allergies Allergy Verified 01/12/24 16:55 Family History Mother Diabetes Hypertension Kidney disease Heart failure Father CVA (cerebral vascular accident) Hypertension Heart disease ischemic Brother Diabetes Surgical History (Updated 01/29/24 @ 00:02 by An Ulloa) History of tracheostomy History of thyroidectomy History of cardiac catheterization Hx of colonoscopy History of thyroidectomy History of exploratory laparotomy Presence of tracheostomy History of laryngectomy (2007) Social History household members: spouse housing: house Smoking Status: Former smoker Smokeless tobacco user: snuff how long ago did patient quit smokin years ago alcohol intake: never substance use type: does not use caffeine: Yes what type of physical activity do you participate in: none frequency: does not exercise ROS ROS ED Constitutional Constitutional ED: Denies chills, fever(s) or sweats ENT ENT ED: Denies sore throat Cardiovascular Cardiovascular: Denies chest pain, leg edema, palpitations or racing heartbeat Respiratory/Chest Respiratory/Chest: Reports cough and other Details: Hemoptysis ; Denies dyspnea or dyspnea on exertion Gastrointestinal Gastrointestinal: Denies abdominal pain, diarrhea, nausea or vomiting Genitourinary Genitourinary ED: Denies dysuria, hematuria or urinary frequency Musculoskeletal Musculoskeletal: Denies back pain, extremity pain or neck pain Integumentary Denies rash or wounds Neurologic Neurologic: Reports weakness; Denies headache(s) or paresthesias EXAM Physical Exam Const Vital Signs: 02/18/24 18:23 02/18/24 18:51 02/18/24 19:19 Temperature 97.5 F L Temperature Source Temporal Pulse Rate 97 Respiratory Rate 20 H Respiratory Effort Short of Breath Respiratory Depth Shallow Respiratory Pattern Tachypnea Blood Pressure 149/74 H Blood Pressure Mean 99 Pulse Ox 94 Oxygen Delivery Method Trach Collar Trach Collar Oxygen Flow Rate (L/min) 3 3 02/18/24 19:23 02/18/24 20:00 02/18/24 21:00 Temperature Temperature Source Pulse Rate 84 Respiratory Rate 13 Respiratory Effort Respiratory Depth Respiratory Pattern Blood Pressure 149/70 H 153/66 H 140/72 H Blood Pressure Mean 96 95 94 Pulse Ox 91 95 94 Oxygen Delivery Method Oxygen Flow Rate (L/min) 3 02/18/24 22:32 Temperature 97.9 F Temperature Source Pulse Rate 85 Respiratory Rate 19 H Respiratory Effort Respiratory Depth Respiratory Pattern Blood Pressure 142/95 H Blood Pressure Mean 110 Pulse Ox 93 Oxygen Delivery Method Oxygen Flow Rate (L/min) Positive well nourished and well developed Constitutional Narrative: Trach tube on 3 L no distress. General Appearance ED: well developed and NAD HEENT Reports moist mucous membranes normocephalic and atraumatic Eyes General Eye ED: Yes normal appearance of both eyes Neck full ROM Neck Narrative: Trach tube clean, dry, intact. Chest Wall Chest: Negative for tenderness Resp normal respiratory effort and normal air movement Effort and Inspection: symmetric chest movement; Negative for respiratory distress Cardio regular rate, regular rhythm and no murmurs Peripheral Pulses: pulses 2+ throughout GI normal to inspection, nondistended, normoactive bowel sounds and non-tender Palpation: Negative for guarding or rebound tenderness present Extremity normal to inspection Extremity Narrative: 1+ lower extremity edema. General Extremety ED: Yes edema; Negative for tenderness General Extremity: edema Neuro oriented x3 and no sensory deficits noted Sensorium / Orientation: awake and alert Skin no rashes or lesions noted and no wounds MDM MDM MDM Narrative Medical decision making narrative: Interventions / MDM: Differential diagnosis: Pneumonia, CHF Diagnosis considered but do not suspect: Pulmonary embolism however chronic anticoagulant of Eliquis. My EKG interpretation: Sinus rate of 87, no ST or T wave changes. First-degree AV block. Imaging independently reviewed and interpreted by myself: 1 view chest x-ray: Atelectasis versus lobar pneumonia is also read by radiologist. External documents reviewed: N/A Test considered but not ordered:N/A ED course: Patient vital signs stable, no respiratory distress. Reports cough hemoptysis starting last couple hours. No fevers. 1+ lower extremity swelling states swelling the hands he is recently stopped on his diuretics. Will check labs with his BNP. Two-view chest x-ray. Patient discharged from [facility] facility due to his 21 days being used up. I spoke with social work in the ED to discuss and evaluate in the ED. Workup possible pneumonia lower lobes. He is increasing cough today. White count normal at 9. Creatinine down to 1.18 from 1.5 last admission. BNP 75. Hemoglobin 7.8 stable from last lab of 8. He was evaluated By social work in the ED, he does have his feedings sent to his house today he has physical therapy and home care set up at the home. Considered admission however he is not requiring any increasing oxygenation. No significant swelling he has been off diuretics with creatinine that is improving. Discussed antibiotics and diuretics through his PEG tube with close outpatient follow-up. They understand and agrees with this plan. All questions were answered. Re-evaluation: stable Disposition discussed with patient/family/significant other: Patient and significant other Case discussed with consulting clinician: kitchen and counter worker This note was generated with [employer] dictation software. It may contain incorrect words, spelling, and punctuation that were not noted in checking the note before signing. Lab Data Attestation: I reviewed the patient's lab results. Labs: Laboratory Results - last 24 hr 02/18/24 18:49 WBC 9.0 RBC 2.78 L Hgb 7.8 L Hct 24.5 L MCV 88.1 MCH 28.1 MCHC 31.8 L RDW Std Deviation 42.3 RDW Coeff of Alisson 13.2 Plt Count 458 H MPV 10.1 Immature Gran % (Auto) 1.700 H Neut % (Auto) 77.5 H Lymph % (Auto) 7.9 L [place] % (Auto) 10.9 H Eos % (Auto) 1.7 Baso % (Auto) 0.3 Absolute Neuts (auto) 7.0 Absolute Lymphs (auto) 0.71 L Nucleated RBC % 0 Sodium 133 L Potassium 4.1 Chloride 98 Carbon Dioxide 31.0 Anion Gap 4 L BUN 35 H Creatinine 1.18 Estim Creat Clear Calc 75.97 Est GFR (MDRD) Af Amer 79 Est GFR (MDRD) Non-Af 65 BUN/Creatinine Ratio 29.7 H Glucose 174 H Calcium 9.0 B-Natriuretic Peptide 75.8 Radiography Diagnostic Testing: Clinical Impression(s) from Imaging Studies Chest X-Ray 02/18/24 19:30 IMPRESSION: Diffuse ill-defined pulmonary opacities mostly in the lower lobes with medium part due to pneumonia and/or atelectasis. Electronically Signed: Kvng Chung, at 20:03 EST , Discharge Plan Triage Chief Complaint: Shortness of Breath ED Provider: Bautista Ellis Dx/Rx/DC Orders Clinical Impression: Pneumonia, CKD (chronic kidney disease), Anticoagulant long-term use, Swelling Instructions: ED Chronic Kidney Disease (CKD), ED Pneumonia (Adult) Prescriptions: New amoxicillin-pot clavulanate 875-125 mg tablet 1 tab feeding tube BID Qty: 14 0RF furosemide [Lasix] 40 mg tablet 40 mg feeding tube DAILY Qty: 10 0RF No Action ferrous sulfate [FeroSul] 325 mg (65 mg iron) tablet 325 mg PO DAILY levothyroxine 150 MCG tablet 150 mcg PO DAILY Patient Comments: thyroid atorvastatin 40 MG tablet 40 mg PO DAILY@1700 ipratropium-albuterol 3 ML solution for nebulization 3 ml inhalation Q4H Patient Comments: breathing acetaminophen 325 mg Tablet 650 mg PO DAILY PRN (Reason: Pain) budesonide [Pulmicort] 0.5 mg/2 mL Suspension For Nebulization 0.5 mg INHALATION BID potassium chloride 10 mEq capsule, extended release 20 meq PO DAILY Patient Comments: TAKE 2 CAPSULES BY MOUTH ONCE DAILY (DME) pen needle, diabetic 32 gauge x 3/16 needle See Rx Instructions .Route Qty: 100 2RF Rx Instructions: As directed buspirone 7.5 mg tablet 7.5 mg PO TID PRN PRN (Reason: anxiety) Jardiance 10 mg tablet 10 mg PO DAILY cyanocobalamin (vitamin B-12) 500 mcg tablet 500 mcg PO DAILY omeprazole 20 mg capsule,delayed release(DR/EC) 20 mg PO DAILY Ozempic 2 mg/dose (8 mg/3 mL) pen injector 2 mg subcut .COMPLEX Rx Instructions: 2 mg subcutaneously once a week last taken Sunday09/28/23; azithromycin 500 mg tablet 1,000 mg PO QWEEK azithromycin 250 mg tablet 250 mg PO DAILY insulin lispro 100 unit/mL insulin pen 10 unit subcut TID insulin glargine [Lantus Solostar U-100 Insulin] 100 unit/mL (3 mL) insulin pen 10 unit subcut DAILY (DME) FreeStyle Zayra 2 Sensor Kit See Rx Instructions .ROUTE .MEDSUPPLY Qty: 2 6RF Rx Instructions: As directed amlodipine 5 mg tablet 5 mg PO DAILY Qty: 90 3RF Eliquis 5 mg tablet 5 mg PO BID Qty: 180 4RF furosemide 40 mg tablet 40 mg PO BID 30 Days Qty: 60 3RF Primary Care Provider: Chinmay Sin Referrals: Chinmay Sin MD [Primary Care Provider] - 1 Week Activity Restrictions/Additional Instructions: COVID, flu, RSV negative. Chest x-ray possible lower lobe pneumonia versus atelectasis. Your white count 9. Your creatinine 1.18 down from 2 previously. Stable hemoglobin. You are seen by social work in the ED. You have physical therapy, your tube feeds set up at home. You have home health set up home. Take antibiotic and diuretic through your PEG tube as prescribed. Follow-up with your doctor recheck labs. Print Language: [place] Disposition Disposition: Home, Self Care Discharge Date/Time: 02/18/24 22:48
[2024-02-18 19:23] VITALS: BP 149/70; RESP 13; O2SAT 91
[2024-02-18 19:24] LABS: Absolute Lymphocyte Count 0.71 X10^3/uL (0.83-4.51); Basophil# 0.03 X10^3/uL; Basophil% 0.3 % (0-1); Eosinophil# 0.15 X10^3/uL; Eosinophils% 1.7 % (0-5); Hematocrit 24.5 % (40-54); Hemoglobin 7.8 g/dL (13.0-16.5); Lymphocyte # 0.71 X10^3/ul (0.83-4.51); Lymphocyte % 7.9 % (19-41); Mean Corp Hgb Conc 31.8 g/dL (32-36); Mean Corpuscular Hgb 28.1 pg (27.0-32.0); Mean Corpuscular Volume 88.1 fL (80-94); Mean Platelet Vol. 10.1 fl (6.2-12.0); Monocyte# 0.98 X10^3/uL; Monocyte% 10.9 % (0-10); NRBC Flagged by Analyzer 0 % (0-5); Neutrophil # 6.99 X10^3/uL (2.7-7.7); Neutrophil % 77.5 % (47-70); Platelet Count 458 K/mm3 (150-450); RBC Distribution Width CV 13.2 % (11.6-14.6); RBC Distribution Width SD 42.3 fl (35.1-43.9); Red Blood Count 2.78 M/mm3 (4.6-6.2)
--- NOTE | 2024-02-18 19:30 | RAD_ITS ---
EXAM: XR CHEST, 1 VIEW CLINICAL INDICATION: cough TECHNIQUE: Frontal view of the chest. This report was created using [employer] report generation technology. COMPARISON: 01/13/2024 FINDINGS: LUNGS AND PLEURAL SPACES: Diffuse ill-defined pulmonary opacities mostly in the lower lobes with medium part due to pneumonia and/or atelectasis. No pneumothorax. No effusion. HEART: No significant abnormality. Cardiac silhouette not enlarged. MEDIASTINUM: Central airways and mediastinal contour are unremarkable. BONES/JOINTS: Degenerative changes in the osseous structures. SOFT TISSUES: No significant abnormality. VASCULATURE: Atherosclerosis. TUBES, LINES AND DEVICES: Tracheostomy cannula overlies the airway. RAD/Chest 1 View (Portable) IMPRESSION: Diffuse ill-defined pulmonary opacities mostly in the lower lobes with medium part due to pneumonia and/or atelectasis. Electronically Signed: Kvng Chung DO at 20:03 EST ,
[2024-02-18 19:37] LABS: Anion Gap 4 (5-15); BUN 35 mg/dL (7-18); BUN/Creat Ratio 29.7 RATIO (10-20); Chloride 98 mmol/L (98-107); Creatinine, Serum 1.18 mg/dL (0.70-1.30); EST Glomerular Filtration Rate 65 mL/min (>60); Est Glom Filt Rate - Afr Amer 79 mL/min (>60); Estimated Creatinine Clearance 75.97 ml/min; Glucose 174 mg/dL (74-106); Potassium 4.1 mmol/L (3.5-5.1); Sodium Level 133 mmol/L (136-145)
[2024-02-18 19:49] LABS: BNP,B-Type NATRIURETIC PEPTIDE 75.8 pg/mL (0-100)
[2024-02-18 20:00] VITALS: BP 153/66; PULSE 84; O2SAT 95
[2024-02-18 21:00] VITALS: BP 140/72; O2SAT 94
[2024-02-18] MEDS: Acetaminophen 650 MG/20 ML UDC GT (22:00)
[2024-02-18] MEDS: Amox/Clavulanate 875 MG Tablet GT (22:00)
[2024-02-18] MEDS: Furosemide 40 MG/4 ML Vial IV (22:00)
--- NOTE | 2024-02-18 22:06 | CM.ED ---
Social Work SW met with patient and . Patient had been discharged from [facility] today, patient has both a trach and a peg tube. concerned because he coughed blood and his hands and feet were swollen. verified that patient was sent home with necessary supplies including pole and tube feed, home health was set up including nursing, aides, and physical therapy. and patient both stated they were comfortable caring for patients trach as it was not new and they both received education regarding patients tube feed that included flushing tube. stated they were working with [facility] and trying to get patient qualified for Medicaid. did request information for Dr. Sathya Manzo at [place] as and patient no longer had the correct number. Phone number and address given to . No further needs identified. Jodie Shaw, OVERHEAD CLEANER, CHEMISTRY PHYSICS TEACHER
[2024-02-18 22:32] VITALS: BP 142/95; PULSE 85; RESP 19; TEMP 36.6; O2SAT 93
--- NOTE | 2024-02-18 22:33 | ED.RN ---
pt. was insistent that he did not need oxygen for ride home, states 'I do this all the time
== END 2024-02-18 22:48 | disposition home or self-care (01) ==
PROVIDERS: Emergency Provider Emergency Medicine; PCP Family Medicine; Visit Provider Emergency Medicine
DX: J18.9 Pneumonia, unspecified organism (principal); Z93.1 Gastrostomy status; I13.0 Hypertensive heart and chronic kidney disease with heart failure and stage 1 through stage 4 chronic kidney disease, or unspecified chronic kidney disease; I50.32 Chronic diastolic (congestive) heart failure; E11.22 Type 2 diabetes mellitus with diabetic chronic kidney disease; Z79.4 Long term (current) use of insulin; N18.30 Chronic kidney disease, stage 3 unspecified; I25.10 Atherosclerotic heart disease of native coronary artery without angina pectoris; Z87.891 Personal history of nicotine dependence; Z79.01 Long term (current) use of anticoagulants; E78.5 Hyperlipidemia, unspecified; I44.0 Atrioventricular block, first degree; Z99.81 Dependence on supplemental oxygen; E03.9 Hypothyroidism, unspecified

== ENCOUNTER 2024-03-11 00:04 | Emergency (ER) | payer MEDICARE, SELFPAY ==
[2024-03-11 00:05] VITALS: PULSE 72; RESP 20; TEMP 37.1; O2SAT 93; BMI 35.6
--- NOTE | 2024-03-11 02:01 | EDS_ITS ---
HPI History of Present Illness Chief Complaint: Other, Pain/Inj Informant: patient and spouse/S.O. Narrative Narrative: Patient is a 69-year-old male with past medical history of COPD hypertension hyperlipidemia and benign colon neoplasm that has necessitated place of a PEG tube. He does have a history of atrial fibrillation and is on Eliquis. Patient and spouse states that they have been taking care of the PEG tube as directed but that today there appeared to be leakage of blood from it. The patient states that he did take cough syrup today that had a reddish-purple discoloration but he has concerned that he is bleeding from his intestines/stomach especially with his history of Eliquis use and therefore comes in for evaluation [facility] Medical History Respiratory insufficiency Adverse drug reaction Symptomatic bradycardia Sinus bradycardia Hypoxia Anticoagulant long-term use COPD exacerbation Pleural effusion on left Acute exacerbation of CHF (congestive heart failure) Kidney disease COPD (chronic obstructive pulmonary disease) Atrial fibrillation BPH (benign prostatic hyperplasia) Anxiety and depression Stage 3a chronic kidney disease (CKD) Atrial fibrillation Obesity Tracheostomy in place Anticoagulant long-term use Chronic a-fib Recurrent left pleural effusion Chronic pain (HFpEF) heart failure with preserved ejection fraction Wears glasses Walker as ambulation aid Ambulates with cane Injury of back Migraine headache Gastric reflux Former smoker On home oxygen therapy Emphysema, unspecified Obesity Chronic renal failure, stage 3 (moderate) Laryngeal cancer Gastroenteritis Diabetes mellitus, type II Malignant neoplasm of head, neck and face History of colon polyps Gout Hyperlipidemia Hiatal hernia Esophageal dysmotility Diverticulosis of colon (without mention of hemorrhage) Benign neoplasm of colon Atherosclerosis of coronary artery of [place] heart without angina pectoris Essential hypertension Hypothyroidism COPD (chronic obstructive pulmonary disease) Home Medications ?Medication ?Instructions ?Recorded ?Last Taken ?Type levothyroxine 150 mcg tablet 150 mcg PO DAILY hypothyr oidism 06/04/14 11/13/22 History atorvastatin 40 mg tablet 40 mg PO DAILY@1700 choleste rol 04/12/17 11/12/22 History ipratropium 0.5 mg-albuterol 3 mg 3 ml inhalation Q4H sob 04/12/17 11/13/22 History (2.5 mg base)/3 mL nebulization soln flash glucose sensor (FreeStyle #2 ea 05/17/21 Unknown Rx Zayra 2 Sensor kit) acetaminophen 325 mg tablet 650 mg PO DAILY PRN Pain 1 02/05/21 11/13/22 History budesonide 0.5 mg/2 mL suspension 0.5 mg inhalation BI D sob 12/06/21 11/10/22 History for nebulization (Pulmicort) ferrous sulfate 325 mg (65 mg 325 mg PO DAILY iron 11/13/22 History iron) tablet (FeroSul) potassium chloride 10 mEq 20 meq PO DAILY mineral 10/2811/13/22 History capsule,extended release pen needle, diabetic 32 gauge x #100 ea 06/22/23 Unkno wn Rx 04/20 amlodipine 5 mg tablet 5 mg PO DAILY #90 tabs 09/16 Unknown Rx apixaban 5 mg tablet (Eliquis) 5 mg PO BID blood thinn er #180 tabs 09/20/23 Unknown Rx buspirone 7.5 mg tablet 7.5 mg PO TID PRN PRN anxiet y 10/01/23 Unknown History cyanocobalamin (vitamin B-12) 500 500 mcg PO DAILY Unknown History mcg tablet empagliflozin 10 mg tablet 10 mg PO DAILY 10/01/23 Unk nown History (Jardiance) omeprazole 20 mg capsule,delayed 20 mg PO DAILY Unknown History release semaglutide 2 mg/dose (8 mg/3 mL) 2 mg subcut .COMPLEX diabetes 10/01/23 Unknown History subcutaneous pen injector (Ozempic) furosemide 40 mg tablet 40 mg PO BID EDEMA 1 month # 60 tabs 10/25/23 Unknown Rx azithromycin 500 mg tablet 1,000 mg PO QWEEK 01/12/24 Unknown History amoxicillin 875 mg-potassium 1 tab feeding tube BID #1 4 tabs 02/18/24 Unknown Rx clavulanate 125 mg tablet azithromycin 250 mg tablet 250 mg PO DAILY 02/18/24 Un known History furosemide 40 mg tablet (Lasix) 40 mg feeding tube KEEGAN LY #10 tabs 02/18/24 Unknown Rx insulin glargine 100 unit/mL (3 10 unit subcut DAILY 0 02/18/24 Unknown History mL) subcutaneous pen (Lantus Solostar U-100 Insulin) insulin lispro 100 unit/mL 10 unit subcut TID 02/18/24 Unknown History subcutaneous pen Allergy/AdvReac Type Severity Reaction Status Date / Time No Known Allergies Allergy Verified 01/12/24 16:55 Family History Mother Diabetes Hypertension Kidney disease Heart failure Father CVA (cerebral vascular accident) Hypertension Heart disease ischemic Brother Diabetes Surgical History (Updated 01/29/24 @ 00:02 by An Ulloa) History of tracheostomy History of thyroidectomy History of cardiac catheterization Hx of colonoscopy History of thyroidectomy History of exploratory laparotomy Presence of tracheostomy History of laryngectomy (2007) Social History household members: spouse housing: house Smoking Status: Former smoker Smokeless tobacco user: snuff how long ago did patient quit smokin years ago alcohol intake: never substance use type: does not use caffeine: Yes what type of physical activity do you participate in: none frequency: does not exercise ROS ROS ED Constitutional Constitutional ED: Denies chills or fever(s) Cardiovascular Cardiovascular: Denies chest pain Respiratory/Chest Respiratory/Chest: Reports cough and other Details: Patient reports the cough is chronic in nature ; Denies dyspnea Gastrointestinal Gastrointestinal: Reports other Details: Positive red discoloration from PEG tube ; Denies abdominal pain, diarrhea, nausea or vomiting Genitourinary Genitourinary ED: Denies hematuria Musculoskeletal Musculoskeletal: Denies back pain Integumentary Denies rash Neurologic Neurologic: Denies headache(s) Hematologic/Lymphatic Hematologic/Lymphatic: Reports easy bleeding and easy bruising EXAM Physical Exam Const Vital Signs: 03/11/24 00:05 03/11/24 00:07 Temperature 98.8 F Temperature Source Oral Pulse Rate 72 Respiratory Rate 20 H Respiratory Pattern Normal Pulse Ox 93 Oxygen Delivery Method Room Air Positive well nourished, well developed and obese General Appearance ED: well developed; Negative for pallor Nutritional Appearance: obese HEENT HEENT Narrative: Normocephalic atraumatic Eyes PERRL and EOMs intact bilaterally General Eye ED: Negative for scleral icterus Neck supple Resp normal respiratory effort Resp Narrative: Breath sounds are diminished throughout with diffuse expiratory wheeze and rhonchi in the bilateral bases consistent with history of COPD but no signs of respiratory distress Cardio regular rate and regular rhythm GI normal to inspection, nondistended, normoactive bowel sounds, non-tender, non- distended and no masses GI Narrative: PEG tube insertion to the mid upper abdomen and surrounding soft tissue is clean dry and intact without infection changes. The abdomen is soft nontender nondistended with normal active bowel sounds. No voluntary guarding or rigidity or pulsatile mass In the PEG tube tubing there is a thin reddish/purple discoloration of fluid consistent with patient's concern for internal bleeding Auscultation: normoactive bowel sounds Palpation: soft Extremity Extremity Narrative: +2 pitting edema to the bilateral lower extremities which is chronic in nature per patient Negative Homans' sign bilaterally Neuro oriented x3, CN's II-XII intact bilaterally and no sensory deficits noted Sensorium / Orientation: alert Motor Exam: strength 5/5 throughout Psych mental status grossly normal Skin no rashes or lesions noted General Skin Exam: Negative for jaundice or pallor MDM MDM MDM Narrative Medical decision making narrative: Patient arrived to the ER hypertensive but has a past medical history of this and otherwise vitals are stable. He reported concern for internal bleeding and is on Eliquis which could definitely cause this. However the discoloration in the PEG tube that they reported was blood appears pink/purple and not consistent with internal bleeding. As vitals are stable I do not feel the need for laboratory studies other than sending a sample of the PEG tube fluid to lab. A Gastroccult test was performed on it and this was negative which correlates with the presentation of the fluid. Therefore at this time as the lab confirms the solution and the PEG tube is not blood and his vitals are stable there is no need for further workup and the patient is otherwise safe for discharge History & Record Review Discussion w/independent historian: Patient and Significant other Discharge Plan Triage Chief Complaint: Other, Pain/Inj ED Provider: Alvarez Grey Dx/Rx/DC Orders Clinical Impression: PEG tube malfunction, Hypertension, Current use of jail anticoagulation, Insulin dependent diabetes mellitus, COPD (chronic obstructive pulmonary disease) Instructions: Feeding Tube Prescriptions: No Action ferrous sulfate [FeroSul] 325 mg (65 mg iron) tablet 325 mg PO DAILY levothyroxine 150 MCG tablet 150 mcg PO DAILY Patient Comments: thyroid atorvastatin 40 MG tablet 40 mg PO DAILY@1700 ipratropium-albuterol 3 ML solution for nebulization 3 ml inhalation Q4H Patient Comments: breathing acetaminophen 325 mg Tablet 650 mg PO DAILY PRN (Reason: Pain) budesonide [Pulmicort] 0.5 mg/2 mL Suspension For Nebulization 0.5 mg INHALATION BID potassium chloride 10 mEq capsule, extended release 20 meq PO DAILY Patient Comments: TAKE 2 CAPSULES BY MOUTH ONCE DAILY (DME) pen needle, diabetic 32 gauge x 3/16 needle See Rx Instructions .Route Qty: 100 2RF Rx Instructions: As directed buspirone 7.5 mg tablet 7.5 mg PO TID PRN PRN (Reason: anxiety) Jardiance 10 mg tablet 10 mg PO DAILY cyanocobalamin (vitamin B-12) 500 mcg tablet 500 mcg PO DAILY omeprazole 20 mg capsule,delayed release(DR/EC) 20 mg PO DAILY Ozempic 2 mg/dose (8 mg/3 mL) pen injector 2 mg subcut .COMPLEX Rx Instructions: 2 mg subcutaneously once a week last taken Sunday09/28/23; azithromycin 500 mg tablet 1,000 mg PO QWEEK azithromycin 250 mg tablet 250 mg PO DAILY insulin lispro 100 unit/mL insulin pen 10 unit subcut TID insulin glargine [Lantus Solostar U-100 Insulin] 100 unit/mL (3 mL) insulin pen 10 unit subcut DAILY amoxicillin-pot clavulanate 875-125 mg tablet 1 tab feeding tube BID Qty: 14 0RF furosemide [Lasix] 40 mg tablet 40 mg feeding tube DAILY Qty: 10 0RF (DME) FreeStyle Zayra 2 Sensor Kit See Rx Instructions .ROUTE .MEDSUPPLY Qty: 2 6RF Rx Instructions: As directed amlodipine 5 mg tablet 5 mg PO DAILY Qty: 90 3RF Eliquis 5 mg tablet 5 mg PO BID Qty: 180 4RF furosemide 40 mg tablet 40 mg PO BID 30 Days Qty: 60 3RF Primary Care Provider: Chinmay Sin Referrals: Chinmay Sin MD [Primary Care Provider] - Activity Restrictions/Additional Instructions: The fluid taken from your PEG tube was negative for blood indicating it is discolored secondary to food or medicine that you ingested. Continue to care for the PEG tube as previously directed and return to the ER should you have any further concerns Print Language: Vincentian Disposition Disposition: Home, Self Care Discharge Date/Time: 03/11/24 02:39
[2024-03-11 02:04] VITALS: BP 156/80; PULSE 69; RESP 12; O2SAT 98
[2024-03-11 02:38] VITALS: BP 160/87; PULSE 87; RESP 16; TEMP 36.8; O2SAT 95
== END 2024-03-11 02:39 | disposition home or self-care (01) ==
PROVIDERS: Emergency Provider Emergency Medicine; PCP Family Medicine; Visit Provider Emergency Medicine
DX: K94.23 Gastrostomy malfunction (principal); I13.0 Hypertensive heart and chronic kidney disease with heart failure and stage 1 through stage 4 chronic kidney disease, or unspecified chronic kidney disease; I50.32 Chronic diastolic (congestive) heart failure; J44.9 Chronic obstructive pulmonary disease, unspecified; Z79.4 Long term (current) use of insulin; E11.22 Type 2 diabetes mellitus with diabetic chronic kidney disease; N18.31 Chronic kidney disease, stage 3a; E66.9 Obesity, unspecified; Z68.35 Body mass index [BMI] 35.0-35.9, adult; Z79.899 Other long term (current) drug therapy; Z87.891 Personal history of nicotine dependence
CPT/HCPCS: 82271; 99282

== ENCOUNTER 2024-04-14 08:35 | Day surgery (SDC) | payer MEDICARE, MEDICAID, SELFPAY ==
--- NOTE | 2024-04-11 16:31 | PAT.ANESEVAL ---
Pre-Assessment Diagnosis/Proposed Procedure Planned Operative Procedure(s): EGD W/ PEG TUBE REMOVAL Anesthesia History Anesthesia History - metal or wood blocker: Anesthesia History - metal or wood blocker Hx Hospitalization No 04/11/24 16:03 Any Problems With Anesthesia No 04/11/24 16:03 Cholinesterase deficiency No 04/11/24 16:03 You/Your Family Experience No 04/11/24 16:03 fever (hyperthermia) with Relationship Recent Exposure to Contagious No 02/03/22 13:36 Disease Does patient have nerve No 04/11/24 16:03 stimulator Patient instructed to have device shut off --Does patient have Pacemaker or ICD? When Was Last Pacemaker Check QUESTION #4 FULL TEXT: You/Your Family Experience fever (hyperthermia) with Anesthesia Last Oral Intake Last Oral intake: Last Oral Intake NPO since Meds taken in AM with sips of water? Meds patient instructed to take am of surgery PONV PONV - metal or wood blocker: PONV - metal or wood blocker Female No 04/11/24 16:03 HX of Motion Sickness No 04/11/24 16:03 HX of N/V After Surgery No 04/11/24 16:03 Non-Smoker Yes 04/11/24 16:03 Duration of Surgery greater No 04/11/24 16:03 than 60 minutes Number of Risk Factors 1 04/11/24 16:03 PONV Score Low Risk 04/11/24 16:03 Height & Weight Height & Weight: Anesthesia: Height & Weight Height 5 ft 11 in 03/11/24 00:05 Respiratory Assessment Respiratory Assessment - metal or wood blocker: Respiratory Tract Infection Hx - metal or wood blocker Hx Respiratory Tract Infection No 04/11/24 16:03 STOP Sleep Apnea STOP Sleep Apnea - metal or wood blocker: STOP Sleep Apnea - metal or wood blocker Hx Hypertension Yes: CONTROLLED ON MED 04/11/24 16:03 Hx Sleep Apnea No 04/11/24 16:03 CPAP No 04/11/24 16:03 BIPAP No 04/11/24 16:03 Do you snore loudly (louder No 04/11/24 16:03 than talking or can be heard Do you often feel tired/ No 04/11/24 16:03 fatigued/ sleepy during daytime? Has anyone observed you stop No 04/11/24 16:03 breathing during sleep? STOP Results Negative 04/11/24 16:03 QUESTION #5 FULL TEXT : Do you snore loudly (louder than talking or can be heard through closed doors)? Tobacco Use History Tobacco Use History - metal or wood blocker: Tobacco Use History - metal or wood blocker Tobacco Use Non-smoker 02/03/22 13:36 Smoking Status Former smoker 04/11/24 16:03 Hx Tobacco Use No 04/11/24 16:03 Years Smoking Packs Smoked per Day Smoking Cessation Date was Yes - quit smoking within 15 04/11/24 16:03 within the last 15 years years Hx Smoking Cessation Date 01/05/07 04/11/24 16:03 Hx Smoking Cessation Counseling Hematologic Medial History Hematologic Hx - metal or wood blocker: Hematologic Medical Hx - senior [employer] d[employer] Hx of Blood Transfusion Yes 04/11/24 16:03 Hx of Transfusion in last 3 No 04/11/24 16:03 Months Date of Last Transfusion (if within last 3 months) Ever experience any problems No 04/11/24 16:03 with transfusion(s)? Specify any problems Hx of Preganancy in last 3 N/A 04/11/24 16:03 Months Nurse Filling Out Transfusion VCHRISTIN 04/11/24 16:03 & Questions: Date: 04/11/24 04/11/24 16:03 Time: 16:04 04/11/24 16:03 Patient unable to answer at this time (ie. confused, unrespo /Reproduction History /Reproductive History - metal or wood blocker: /Reproductive Hx- metal or wood blocker Hx Now Gestational Age (in weeks): EDC: Hx Hx Para Hx Section SAB PFSH Medical History (Updated 04/11/24 @ 16:03 by Darby Anthony) Anemia Chronic cough History of echocardiogram Cardiology follow-up encounter Obesity (BMI 30-39.9) History of laryngeal cancer Uncontrolled hypertension Chronic atrial fibrillation Respiratory insufficiency Adverse drug reaction Symptomatic bradycardia Sinus bradycardia Hypoxia Anticoagulant long-term use COPD exacerbation Kidney disease COPD (chronic obstructive pulmonary disease) Atrial fibrillation BPH (benign prostatic hyperplasia) Anxiety and depression Pleural effusion on left Acute exacerbation of CHF (congestive heart failure) Stage 3a chronic kidney disease (CKD) Atrial fibrillation Obesity Tracheostomy in place Anticoagulant long-term use Chronic a-fib Recurrent left pleural effusion Chronic pain (HFpEF) heart failure with preserved ejection fraction Wears glasses Walker as ambulation aid Ambulates with cane Injury of back Migraine headache Gastric reflux Former smoker On home oxygen therapy Emphysema, unspecified Obesity Chronic renal failure, stage 3 (moderate) Laryngeal cancer Gastroenteritis Diabetes mellitus, type II Malignant neoplasm of head, neck and face History of colon polyps Gout Hyperlipidemia Hiatal hernia Esophageal dysmotility Diverticulosis of colon (without mention of hemorrhage) Benign neoplasm of colon Atherosclerosis of coronary artery of [place] heart without angina pectoris Essential hypertension Hypothyroidism COPD (chronic obstructive pulmonary disease) Home Medications ?Medication ?Instructions ?Recorded ?Last Taken ?Type levothyroxine 150 mcg tablet 150 mcg PO DAILY hypothyroidism 06/04/14 11/13/22 History atorvastatin 40 mg tablet 40 mg PO DAILY@1700 cholesterol 04/12/17 11/12/22 History flash glucose sensor (FreeStyle #2 ea 05/17/21 Unknown Rx Zayra 2 Sensor kit) acetaminophen 325 mg tablet 650 mg PO DAILY PRN Pain 12/06/21 11/13/22 History budesonide 0.5 mg/2 mL suspension 0.5 mg inhalation BID sob 12/06/21 11/10/22 History for nebulization (Pulmicort) pen needle, diabetic 32 gauge x #100 ea 06/22/23 Unknown Rx 04/20 amlodipine 5 mg tablet 5 mg PO DAILY #90 tabs 09/17/23 Unknown Rx buspirone 7.5 mg tablet 7.5 mg PO TID PRN PRN anxiety 10/01/23 Unknown History cyanocobalamin (vitamin B-12) 500 500 mcg PO DAILY 10/01/23 Unknown History mcg tablet omeprazole 20 mg capsule,delayed 20 mg PO DAILY 10/01/23 Unknown History release furosemide 40 mg tablet 40 mg PO BID EDEMA 1 month #60 tabs 10/25/23 Unknown Rx azithromycin 250 mg tablet 250 mg PO DAILY 02/18/24 Unknown History apixaban 5 mg tablet (Eliquis) 5 mg PO BID blood thinner #90 tabs 04/10/24 04/11/24 Rx gabapentin 100 mg capsule 100 mg PO TID 04/10/24 Unknown History spironolactone 25 mg tablet 25 mg PO DAILY #30 tabs 04/10/24 Unknown Rx empagliflozin 10 mg tablet 10 mg PO DAILY 04/11/24 04/10/24 History (Jardiance) Allergy/AdvReac Type Severity Reaction Status Date / Time No Known Allergies Allergy Verified 04/10/24 11:14 Family History Mother Diabetes Hypertension Kidney disease Heart failure Father CVA (cerebral vascular accident) Hypertension Heart disease ischemic Brother Diabetes Surgical History (Updated 04/11/24 @ 16:03 by Darby Anthony) History of esophagogastroduodenoscopy (EGD) History of tracheostomy History of thyroidectomy History of cardiac catheterization Hx of colonoscopy History of thyroidectomy History of exploratory laparotomy Presence of tracheostomy History of laryngectomy (2007) Social History household members: spouse housing: house Smoking Status: Former smoker Smokeless tobacco user: snuff how long ago did patient quit smokin years ago alcohol intake: never substance use type: does not use caffeine: Yes what type of physical activity do you participate in: none frequency: does not exercise Audit: Pertinent Findings Pertinent Findings EKG Perinent findings: 02/18/2024 sinus rhythm. First-degree AV block Echo (EF%) pertinent findings: 06/19/2023. EF 60% aortic sclerosis no stenosis Consult pertinent findings: Cardiology 04/10/2024. Atrial fibrillation. On Eliquis daily. Heart failure with preserved EF. Echo 06/25/2023 showed EF of 65% continue medical therapy. Coronary artery disease. As of 2014 nonobstructive left circumflex and RCA. Stress test September 2018 negative for ischemia Additional pertinent findings: Anemia. Hemoglobin 7.8 g/dL. INR is 1.2. Patient is Jehovah's witness. Patient also has trach tube that cares for Recommendation Anesthesia Recommendation Anesthesia recommendation: OPTIMIZED for anesthesia
[2024-04-14] VITALS (7 sets, daily range): BP systolic 123–174; BP diastolic 65–80; PULSE 77–84; RESP 16–20; TEMP 36.2–36.8; O2SAT 92–96; BMI 37.8
--- NOTE | 2024-04-14 08:51 | HP.PCM_ITS ---
[facility] - General General Date of Admission: 04/14/24 Date of Service: 04/14/24 Chief Complaint: Peg tube removal [facility] Narrative ABDIEL CORTEZ, is a 69 M who presents for endoscopic PEG tube removal. Past medical history of DM-2 on Jardiance plus lispro insulin 10 U TID; history of tobacco abuse (quit smoking in 2007, quit smokeless tobacco in 2014); with subsequent COPD, chronic hypoxic respiratory failure; on 3L trach mask nocturnally, history of Laryngeal cancer; s/p laryngectomy (2007) with tracheostomy, current uncuffed appliance use; GERD: with hiatal hernia and esophageal dysmotility on daily omeprazole, history of colonic diverticulosis, history of colon polyps, typically ambulates with a cane and recent hospital admission here from 01.13.2024 to 01.21.2024 for treatment of AE CHF, with preserved LVEF and concurrent pseudomonas pneumonia. He explains the PEG was placed without clear explanation of necessity, or use, following an episode of vomiting a year ago. He reports that surgeon who performed the laryngectomy told him that it was impossible for him to aspirate due to the amount and location of tissue removal, so he is seeking consultation for the removal of his PEG. He reports that he continues to eat normally, taking small bites and using applesauce for pills. He does use the PEG for continuous feedings at times. Last EGD performed while an inpatient in December of 2021; severe esophageal stenosis found 20-23cm from incisors and dilated, no gastric abnormality. He reports daily BM with complete evacuation, denies hematochezia and melena. He denies abdominal bloating, reflux, heartburn, cramping, excessive belching and flatulence. [facility] Medical History Anemia Chronic cough History of echocardiogram Cardiology follow-up encounter Obesity (BMI 30-39.9) History of laryngeal cancer Uncontrolled hypertension Chronic atrial fibrillation Respiratory insufficiency Adverse drug reaction Symptomatic bradycardia Sinus bradycardia Hypoxia Anticoagulant long-term use COPD exacerbation Kidney disease COPD (chronic obstructive pulmonary disease) Atrial fibrillation BPH (benign prostatic hyperplasia) Anxiety and depression Pleural effusion on left Acute exacerbation of CHF (congestive heart failure) Stage 3a chronic kidney disease (CKD) Atrial fibrillation Obesity Tracheostomy in place Anticoagulant long-term use Chronic a-fib Recurrent left pleural effusion Chronic pain (HFpEF) heart failure with preserved ejection fraction Wears glasses Walker as ambulation aid Ambulates with cane Injury of back Migraine headache Gastric reflux Former smoker On home oxygen therapy Emphysema, unspecified Obesity Chronic renal failure, stage 3 (moderate) Laryngeal cancer Gastroenteritis Diabetes mellitus, type II Malignant neoplasm of head, neck and face History of colon polyps Gout Hyperlipidemia Hiatal hernia Esophageal dysmotility Diverticulosis of colon (without mention of hemorrhage) Benign neoplasm of colon Atherosclerosis of coronary artery of [place] heart without angina pectoris Essential hypertension Hypothyroidism COPD (chronic obstructive pulmonary disease) Home Medications ?Medication ?Instructions ?Recorded ?Last Taken ?Type levothyroxine 150 mcg tablet 150 mcg PO DAILY hypothyr oidism 06/04/14 11/13/22 History atorvastatin 40 mg tablet 40 mg PO DAILY@1700 choleste rol 04/12/17 11/12/22 History flash glucose sensor (FreeStyle #2 ea 05/17/21 Unknown Rx Zayra 2 Sensor kit) acetaminophen 325 mg tablet 650 mg PO DAILY PRN Pain 1 02/05/21 11/13/22 History budesonide 0.5 mg/2 mL suspension 0.5 mg inhalation BI D sob 12/06/21 11/10/22 History for nebulization (Pulmicort) pen needle, diabetic 32 gauge x #100 ea 06/22/23 Unkno wn Rx 04/20 amlodipine 5 mg tablet 5 mg PO DAILY #90 tabs 09/16 Unknown Rx buspirone 7.5 mg tablet 7.5 mg PO TID PRN PRN anxiet y 10/01/23 Unknown History cyanocobalamin (vitamin B-12) 500 500 mcg PO DAILY Unknown History mcg tablet omeprazole 20 mg capsule,delayed 20 mg PO DAILY Unknown History release furosemide 40 mg tablet 40 mg PO BID EDEMA 1 month # 60 tabs 10/25/23 Unknown Rx azithromycin 250 mg tablet 250 mg PO DAILY 02/18/24 Un known History apixaban 5 mg tablet (Eliquis) 5 mg PO BID blood thinn er #90 tabs 04/10/24 04/11/24 Rx gabapentin 100 mg capsule 100 mg PO TID 04/10/24 Unkno wn History spironolactone 25 mg tablet 25 mg PO DAILY #30 tabs Unknown Rx empagliflozin 10 mg tablet 10 mg PO DAILY 04/11/2407/30 History (Jardiance) Allergy/AdvReac Type Severity Reaction Status Date / Time No Known Allergies Allergy Verified 04/10/24 11:14 Family History Mother Diabetes Hypertension Kidney disease Heart failure Father CVA (cerebral vascular accident) Hypertension Heart disease ischemic Brother Diabetes Surgical History History of esophagogastroduodenoscopy (EGD) History of tracheostomy History of thyroidectomy History of cardiac catheterization Hx of colonoscopy History of thyroidectomy History of exploratory laparotomy Presence of tracheostomy History of laryngectomy (2007) Social History household members: spouse housing: house Smoking Status: Former smoker Smokeless tobacco user: snuff how long ago did patient quit smokin years ago alcohol intake: never substance use type: does not use caffeine: Yes what type of physical activity do you participate in: none frequency: does not exercise ROS Constitutional Constitutional: Denies fatigue, fever(s), poor appetite, weight gain or weight loss Gastrointestinal Gastrointestinal: Denies belching, bloating, change in bowel habits, change in stool character, chewing difficulty, coffee ground emesis, constipation, cramping, diarrhea, dyspepsia, dysphagia, early satiety, excessive flatus, fecal incontinence, heartburn, hematemesis, hematochezia, hemorrhoids, loose stools, melena, nausea, odynophagia, rectal bleeding, tenesmus, vomiting or weight changes Physical Exam Const alert, oriented x3, no apparent distress and healthy appearing General Appearance: cooperative GI normal to inspection, nondistended, normoactive bowel sounds, soft to palpation, non-tender and non-distended Percussion: normal to percussion Rectal Exam: deferred Assessment & Plan Assessment/Plan (1) Dysphagia: (2) Presence of externally removable percutaneous endoscopic gastrostomy (PEG) tube: PLAN: Assessment and Plan Assessment and Plan (1) Encounter for percutaneous endoscopic gastrostomy: Damaso ABDIEL CORTEZ, is a 69 M who presents to the office today for establishment with [facility] and to discuss removal of current PEG tube. Discussed care plan with him: * schedule EGD for esophageal assessment and possible dilation, place on cancellation list * remove PEG during EGD or in office * continue omeprazole 20mg PO daily * office FU 6months
--- NOTE | 2024-04-14 09:24 | PCM.PRE.AN2 ---
ASA Classification* ASA Classification ASA Classification: 3 Assessment & Plan Anesthesia* Anesthesia Assessment Anesthesia Assessment: Discussed sedation and/or anesthesia options, risks, benefits, and alternatives with patient/parents/legal guardian/POA. Questions invited. The patient/parents/legal guardian/POA seems to understand and agrees to proceed with anesthesia plan. Reviewed the physical assessment, medical history, allergy history and patient home medications list prior to surgery/procedure/anesthetic and documented any changes. Performed airway and anesthesia risk assessments. Anesthesia Type Anesthesia Type: MAC (Trach in Place) Anesthesia Focused Assessment* Temperature: 97.2 F Pulse Rate: 84 Blood Pressure: 174/80 Respiratory Rate: 16 Pulse Ox: 96 Airway Assessment Mouth opens: >3 cm Mallampati Score: II Focused Labs Anesthesia Preop lab: CBC WBC 9.0 K/mm3 (4.4-11.0) 02/18/24 18:49 02/18/24 RBC 2.78 M/mm3 (4.6-6.2) L 02/18/24 18:49 02/18/24 Hgb 7.8 g/dL (13.0-16.5) L 02/18/24 18:49 02/18/24 Hct 24.5 % (40-54) L 02/18/24 18:49 02/18/24 Plt Count 458 K/mm3 (150-450) H 02/18/24 18:49 02/18/24 CHEMISTRY Potassium 4.1 mmol/L (3.5-5.1) 02/18/24 18:49 02/18/24 Sodium 133 mmol/L (136-145) L 02/18/24 18:49 02/18/24 Magnesium 2.3 mg/dL (1.6-2.6) 01/20/24 05:00 01/20/24 Phosphorus 4.2 mg/dL (2.5-4.9) 01/17/24 05:19 01/17/24 BUN 35 mg/dL (7-18) H 02/18/24 18:49 02/18/24 Creatinine 1.18 mg/dL (0.70-1.30) 02/18/24 18:49 02/18/24 Glucose 174 mg/dL (74-106) H 02/18/24 18:49 02/18/24 POC Glucose 223 mg/dL (74-106) H 01/21/24 12:15 01/21/24 TSH 3.800 uIU/mL (0.358-3.740) H 01/12/24 17:20 01/12/24 COAG PT 15.0 SECONDS (11.7-14.9) H 01/12/24 17:20 01/12/24 Pre-Assessment Diagnosis/Proposed Procedure Planned Operative Procedure(s): EGD W/ PEG TUBE REMOVAL Anesthesia History Anesthesia History - sales representative consultant: Anesthesia History - sales representative consultant Hx Hospitalization No 04/11/24 16:03 Any Problems With Anesthesia No 04/11/24 16:03 Cholinesterase deficiency No 04/11/24 16:03 You/Your Family Experience No 04/11/24 16:03 fever (hyperthermia) with Relationship Recent Exposure to Contagious No 04/14/24 09:04 Disease Does patient have nerve No 04/11/24 16:03 stimulator Patient instructed to have device shut off --Does patient have Pacemaker No 04/14/24 09:04 or ICD? When Was Last Pacemaker Check QUESTION #4 FULL TEXT: You/Your Family Experience fever (hyperthermia) with Anesthesia Last Oral Intake Last Oral intake: Last Oral Intake NPO since 07:00 04/14/24 09:04 Meds taken in AM with sips of water? Meds patient instructed to take am of surgery PONV PONV - sales representative consultant: PONV - sales representative consultant Female No 04/11/24 16:03 HX of Motion Sickness No 04/11/24 16:03 HX of N/V After Surgery No 04/11/24 16:03 Non-Smoker Yes 04/11/24 16:03 Duration of Surgery greater No 04/11/24 16:03 than 60 minutes Number of Risk Factors 1 04/11/24 16:03 PONV Score Low Risk 04/11/24 16:03 Height & Weight Height & Weight: Anesthesia: Height & Weight Height 5 ft 11 in 04/14/24 09:04 Weight: 122.924 kg 04/14/24 09:04 Body Mass Index (BMI) 37.8 04/14/24 09:04 Respiratory Assessment Respiratory Assessment - sales representative consultant: Respiratory Tract Infection Hx - sales representative consultant Hx Respiratory Tract Infection No 04/11/24 16:03 STOP Sleep Apnea STOP Sleep Apnea - sales representative consultant: STOP Sleep Apnea - sales representative consultant Hx Hypertension Yes: CONTROLLED ON MED 04/11/24 16:03 Hx Sleep Apnea No 04/11/24 16:03 CPAP No 04/11/24 16:03 BIPAP No 04/11/24 16:03 Do you snore loudly (louder No 04/11/24 16:03 than talking or can be heard Do you often feel tired/ No 04/11/24 16:03 fatigued/ sleepy during daytime? Has anyone observed you stop No 04/11/24 16:03 breathing during sleep? STOP Results Negative 04/11/24 16:03 QUESTION #5 FULL TEXT : Do you snore loudly (louder than talking or can be heard through closed doors)? Tobacco Use History Tobacco Use History - sales representative consultant: Tobacco Use History - sales representative consultant Tobacco Use Non-smoker 02/03/22 13:36 Smoking Status Former smoker 04/11/24 16:03 Hx Tobacco Use No 04/11/24 16:03 Years Smoking Packs Smoked per Day Smoking Cessation Date was Yes - quit smoking within 15 04/11/24 16:03 within the last 15 years years Hx Smoking Cessation Date 01/05/07 04/11/24 16:03 Hx Smoking Cessation Counseling Hematologic Medial History Hematologic Hx - sales representative consultant: Hematologic Medical Hx - rn clinical documentation Hx of Blood Transfusion Yes 04/11/24 16:03 Hx of Transfusion in last 3 No 04/11/24 16:03 Months Date of Last Transfusion (if within last 3 months) Ever experience any problems No 04/11/24 16:03 with transfusion(s)? Specify any problems Hx of Preganancy in last 3 N/A 04/11/24 16:03 Months Nurse Filling Out Transfusion VCHRISTIN 04/11/24 16:03 & Questions: Date: 04/11/24 04/11/24 16:03 Time: 16:04 04/11/24 16:03 Patient unable to answer at this time (ie. confused, unrespo /Reproduction History /Reproductive History - sales representative consultant: /Reproductive Hx- sales representative consultant Hx Now Gestational Age (in weeks): EDC: Hx Hx Para Hx Section SAB PFSH Medical History Anemia Chronic cough History of echocardiogram Cardiology follow-up encounter Obesity (BMI 30-39.9) History of laryngeal cancer Uncontrolled hypertension Chronic atrial fibrillation Respiratory insufficiency Adverse drug reaction Symptomatic bradycardia Sinus bradycardia Hypoxia Anticoagulant long-term use COPD exacerbation Kidney disease COPD (chronic obstructive pulmonary disease) Atrial fibrillation BPH (benign prostatic hyperplasia) Anxiety and depression Pleural effusion on left Acute exacerbation of CHF (congestive heart failure) Stage 3a chronic kidney disease (CKD) Atrial fibrillation Obesity Tracheostomy in place Anticoagulant long-term use Chronic a-fib Recurrent left pleural effusion Chronic pain (HFpEF) heart failure with preserved ejection fraction Wears glasses Walker as ambulation aid Ambulates with cane Injury of back Migraine headache Gastric reflux Former smoker On home oxygen therapy Emphysema, unspecified Obesity Chronic renal failure, stage 3 (moderate) Laryngeal cancer Gastroenteritis Diabetes mellitus, type II Malignant neoplasm of head, neck and face History of colon polyps Gout Hyperlipidemia Hiatal hernia Esophageal dysmotility Diverticulosis of colon (without mention of hemorrhage) Benign neoplasm of colon Atherosclerosis of coronary artery of [place] heart without angina pectoris Essential hypertension Hypothyroidism COPD (chronic obstructive pulmonary disease) Home Medications ?Medication ?Instructions ?Recorded ?Last Taken ?Type levothyroxine 150 mcg tablet 150 mcg PO DAILY hypothyroidism 06/04/14 04/14/24 History atorvastatin 40 mg tablet 40 mg PO DAILY@1700 cholesterol 04/12/17 11/12/22 History flash glucose sensor (FreeStyle #2 ea 05/17/21 Unknown Rx Zayra 2 Sensor kit) acetaminophen 325 mg tablet 650 mg PO DAILY PRN Pain 12/06/21 11/13/22 History budesonide 0.5 mg/2 mL suspension 0.5 mg inhalation BID sob 12/06/21 04/14/24 History for nebulization (Pulmicort) pen needle, diabetic 32 gauge x #100 ea 06/22/23 Unknown Rx /16 amlodipine 5 mg tablet 5 mg PO DAILY #90 tabs 09/17/23 04/14/24 Rx buspirone 7.5 mg tablet 7.5 mg PO TID PRN PRN anxiety 10/01/23 Unknown History cyanocobalamin (vitamin B-12) 500 500 mcg PO DAILY 10/01/23 Unknown History mcg tablet omeprazole 20 mg capsule,delayed 20 mg PO DAILY 10/01/23 Unknown History release furosemide 40 mg tablet 40 mg PO BID EDEMA 1 month #60 tabs 10/25/23 Unknown Rx azithromycin 250 mg tablet 250 mg PO DAILY 02/18/24 Unknown History apixaban 5 mg tablet (Eliquis) 5 mg PO BID blood thinner #90 tabs 04/10/24 04/11/24 Rx gabapentin 100 mg capsule 100 mg PO TID 04/10/24 04/14/24 History spironolactone 25 mg tablet 25 mg PO DAILY #30 tabs 04/10/24 Unknown Rx empagliflozin 10 mg tablet 10 mg PO DAILY 04/11/24 04/10/24 History (Jardiance) Allergy/AdvReac Type Severity Reaction Status Date / Time No Known Allergies Allergy Verified 04/14/24 08:58 Family History Mother Diabetes Hypertension Kidney disease Heart failure Father CVA (cerebral vascular accident) Hypertension Heart disease ischemic Brother Diabetes Surgical History History of esophagogastroduodenoscopy (EGD) History of tracheostomy History of thyroidectomy History of cardiac catheterization Hx of colonoscopy History of thyroidectomy History of exploratory laparotomy Presence of tracheostomy History of laryngectomy (2007) Social History household members: spouse housing: house Smoking Status: Former smoker Smokeless tobacco user: snuff how long ago did patient quit smokin years ago alcohol intake: never substance use type: does not use caffeine: Yes what type of physical activity do you participate in: none frequency: does not exercise Review of Systems (Anesthesia) ROS Narrative System reviewed and no additional complaints, except as documented.
--- NOTE | 2024-04-14 10:45 | OP.CCLET_ITS ---
04/14/2024 Chinmay Sin MD Re : Upper GI endoscopy procedure for Sathya Chow Dear Dr. Sin This procedure was performed on Sunday, April 14, 2024. My impressions and recommendations are as follows: Impressions : - No specimens collected. Recommendations : - Discharge patient to home. - Resume previous diet. - Continue present medications. My findings are described in the full procedure note, which is enclosed. If I can be of further assistance, please feel free to contact me at . Sincerely, Mukesh Singh, 04/14/2024 10:45:34 AM This report has been signed electronically.
--- NOTE | 2024-04-14 10:45 | OP.EGD_ITS ---
Patient Name: Sathya Chow Procedure Date: 04/14/2024 10:14 AM Date of : 1955 Age: 69 Procedure: Upper GI endoscopy Indications: Remove PEG-J tube (no longer needed) Providers: Mukesh Singh DO Referring MD: Mukesh Singh DO Medicines: Monitored Anesthesia Care Complications: No immediate complications. Procedure: Pre-Anesthesia Assessment: - Prior to the procedure, a History and Physical was performed, and patient medications and allergies were reviewed. The patient is competent. The risks and benefits of the procedure and the sedation options and risks were discussed with the patient. All questions were answered and informed consent was obtained. Patient identification and proposed procedure were verified by the physician in the pre-procedure area. Mental Status Examination: alert and oriented. Airway Examination: normal oropharyngeal airway and neck mobility. Respiratory Examination: clear to auscultation. CV Examination: normal. Prophylactic Antibiotics: The patient does not require prophylactic antibiotics. Prior Anticoagulants: The patient has taken no anticoagulant or antiplatelet agents. ASA Grade Assessment: III - A patient with severe systemic disease. After reviewing the risks and benefits, the patient was deemed in satisfactory condition to undergo the procedure. The anesthesia plan was to use monitored anesthesia care (MAC). Immediately prior to administration of medications, the patient was re-assessed for adequacy to receive sedatives. The heart rate, respiratory rate, oxygen saturations, blood pressure, adequacy of pulmonary ventilation, and response to care were monitored throughout the procedure. The physical status of the patient was re-assessed after the procedure. After obtaining informed consent, the endoscope was passed under direct vision. Throughout the procedure, the patient's blood pressure, pulse, and oxygen saturations were monitored continuously. The Endoscope was introduced through the mouth, and advanced to the second part of duodenum. The upper GI endoscopy was accomplished without difficulty. The patient tolerated the procedure well. Scope In: 10:28:26 AM Scope Out: 10:38:52 AM Total Procedure Duration Time 0 hours 10 minutes 26 seconds Findings: The examined esophagus was normal. There was evidence of an intact gastrostomy with a patent G-tube present in the gastric body. The PEG required removal because it was no longer necessary. The PEG was cut externally, grasped, and removed with the scope. Removal was easily accomplished. To repair the defect, the tissue edges were approximated and one hemostatic clip was successfully placed. Closure of the defect was successful. Clip digital intern: [employer]. There was no bleeding at the end of the procedure. No gross lesions were noted in the first portion of the duodenum. Impression: - No specimens collected. Recommendation: - Discharge patient to home. - Resume previous diet. - Continue present medications. Procedure Code(s): --- Professional --- 34986, Esophagogastroduodenoscopy, flexible, transoral; with removal of foreign body(s) CPT copyright 2021 [employer]. All rights reserved. The codes documented in this report are preliminary and upon shift stacker review may be revised to meet current compliance requirements. Mukesh Singh DO 04/14/2024 10:45:34 AM This report has been signed electronically. Number of Addenda: 0 Note Initiated On: 04/14/2024 10:14 AM
--- NOTE | 2024-04-14 10:45 | PCM.POST.ANE ---
Anesthesia: Postop Eval I Current Vital Signs Temperature: 98.2 F Pulse Rate: 79 Blood Pressure: 140/71 Respiratory Rate: 20 Pulse Ox: 93 (8L trach O2) Assessment Airway patent: Yes Spontaneous unlabored respirations: Yes nausea: No Vomiting: No Anesthesia Complication: No Fluid Hydration Crystalloid volume administer (ml): 10 Total IV fluid infused: 10 Progress Note Anesthesia document: Postop Eval 1 completed: Yes
--- NOTE | 2024-04-14 10:56 | POSTOPAN2_ITS ---
Anesthesia Postop Eval I Sum Postop Eval Completion status Anesthesia document: Postop Eval 1 completed: Yes Anesthesia Postop Eval I Summary Anesthesia Postop Eval I Summary: Anesthesia Postop Eval I: Assessment Summary Airway patent Yes 04/14/24 10:45 [email or web address] Spontaneous unlabored Yes 04/14/24 10:45 AERONAUTICAL [email or web address].CSIR respirations Mental status nausea No 04/14/24 10:45 AERONAUTICAL [email or web address].CSIR Vomiting No 04/14/24 10:45 AERONAUTICAL [email or web address].CSIR Anesthesia Postop Eval I: Fluid Summary Crystalloid volume administer 10 04/14/24 10:45 AERONAUTICAL [email or web address].CSIR (ml) Colloids volume administered ( ml) Blood Product volume administered (ml) Total IV fluid infused 10 04/14/24 10:45 AERONAUTICAL [email or web address].CSIR Anesthesia Postop Eval I: Summary Notes Anesthesia Complication No 04/14/24 10:45 AERONAUTICAL [email or web address].CSIR Anesthesia Complication Comment: Post-operative progress note Anesthesia: Postop Eval II Evaluation Mental status: Awake Pain Level: 0 nausea: No Vomiting: No
--- NOTE | 2024-04-14 10:56 | PCM.POSTANE2 ---
Anesthesia Postop Eval I Sum Postop Eval Completion status Anesthesia document: Postop Eval 1 completed: Yes Anesthesia Postop Eval I Summary Anesthesia Postop Eval I Summary: Anesthesia Postop Eval I: Assessment Summary Airway patent Yes 04/14/24 10:45 [email or web address] Spontaneous unlabored Yes 04/14/24 10:45 WELFARE CASE [email or web address] respirations Mental status nausea No 04/14/24 10:45 WELFARE [email or web address] Vomiting No 04/14/24 10:45 WELFARE [email or web address] Anesthesia Postop Eval I: Fluid Summary Crystalloid volume administer 10 04/14/24 10:45 WELFARE [email or web address] (ml) Colloids volume administered ( ml) Blood Product volume administered (ml) Total IV fluid infused 10 04/14/24 10:45 WELFARE CASE [email or web address] Anesthesia Postop Eval I: Summary Notes Anesthesia Complication No 04/14/24 10:45 WELFARE [email or web address] Anesthesia Complication Comment: Post-operative progress note Anesthesia: Postop Eval II Evaluation Mental status: Awake Pain Level: 0 nausea: No Vomiting: No
[2024-04-14 17:31] LABS: Bedside Glucose 169 mg/dL (74-106)
== END 2024-04-14 11:49 | disposition home or self-care (01) ==
LOC: EN 08:38 → AC 08:44
PROVIDERS: PCP Family Medicine; Referring Provider Family Medicine; Visit Provider Internal Medicine Gastroenterology
PROC: 0DJ08ZZ Inspection of Upper Intestinal Tract, Via Natural or Artificial Opening Endoscopic (ICD-10-PCS; CPT 43235; principal; 2024-04-14 10:10)
DX: Z43.1 Encounter for attention to gastrostomy (principal); J96.11 Chronic respiratory failure with hypoxia; J44.9 Chronic obstructive pulmonary disease, unspecified; E11.22 Type 2 diabetes mellitus with diabetic chronic kidney disease; Z79.4 Long term (current) use of insulin; N18.30 Chronic kidney disease, stage 3 unspecified; K44.9 Diaphragmatic hernia without obstruction or gangrene; Z86.0100 Personal history of colon polyps, unspecified; R13.10 Dysphagia, unspecified; K21.9 Gastro-esophageal reflux disease without esophagitis; K22.4 Dyskinesia of esophagus; Z87.891 Personal history of nicotine dependence; I12.9 Hypertensive chronic kidney disease with stage 1 through stage 4 chronic kidney disease, or unspecified chronic kidney disease; Z85.21 Personal history of malignant neoplasm of larynx; E03.9 Hypothyroidism, unspecified
CPT/HCPCS: 43247; 82962; A4216; J2405

== ENCOUNTER → 2024-10-22 | Outpatient (CLI) | payer MEDICARE, MEDICAID, SELFPAY ==
[2024-10-22 10:45] LABS: Creatinine, Urine (random) 29.30 mg/dL (39.00-259.00); Microalbumin,Random Urine 153.0 mg/L (<20 mg/L)
[2024-10-22 10:46] LABS: Albumin, Serum 4.0 g/dL (3.4-4.8); Anion Gap 13 (5-15); BUN 34 mg/dL (4-19); BUN/Creat Ratio 20.0 RATIO (10-20); Calcium,Total 9.2 mg/dL (7.6-11.0); Carbon Dioxide 25.0 mmol/L (21.0-32.0); Chloride 102 mmol/L (98-108); Glucose 122 mg/dL (70-99); Iron 53 ug/dL (65-175); Iron Binding Capacity,Total 250 ug/dL (250-450); Iron Binding Capacity,Unsat 197 ug/dL (228-428); PTHIN 150 pg/mL (11-61); Potassium 4.9 mmol/L (3.3-5.1)
[2024-10-22 17:31] LABS: Xtra Tube Kwok EXTRA TUBE
[2024-10-24 10:18] LABS: Ferritin 99 ng/mL (37-417)
== END | disposition home or self-care (01) ==
LOC: POLAB3 09:31
PROVIDERS: PCP Family Medicine; Visit Provider Internal Medicine Nephrology
DX: N18.32 Chronic kidney disease, stage 3b (principal)
CPT/HCPCS: 36415; 80069; 82043; 82570; 82728; 83540; 83550; 83970